=== PATIENT | male | born 1950 | race Caucasian/White ===

== ENCOUNTER 2022-06-05 11:53 | Emergency (ER) | payer MEDICARE, OTHER, SELFPAY ==
[2022-06-05 11:54] VITALS: BP 148/79; PULSE 114; RESP 18; TEMP 36.1; O2SAT 97; BMI 37.3
--- NOTE | 2022-06-05 12:22 | CT_ITS ---
STUDY: CT ABDOMEN AND PELVIS WITHOUT CONTRAST REASON FOR EXAM: Male, 71 years old. Right Flank Pain, History of Retroperitoneal Bleed one week ago RADIATION DOSAGE (If Supplied By Facility): CTDIvol = ( 19.89 ) mGy, DLP = ( 1137.82 ) mGycm TECHNIQUE: Transaxial images were obtained from the dome of the diaphragm to the symphysis pubis without oral contrast, and without intravenous contrast. Sagittal and coronal images were reconstructed. Individualized dose optimization techniques were used for this CT. COMPARISON: 05/24/2022 FINDINGS: There are bilateral calcified granulomas throughout the visualized lung bases. There is right lower lobe consolidation. There are coronary artery calcifications. There is a pacer device in place. The lack of intravenous contrast limits evaluation of solid visceral organs. Normal liver. There is non-visualization of the gallbladder, which may be secondary to either contraction or a prior cholecystectomy. Normal spleen. Normal pancreas. There is a stable circumscribed, smooth, low attenuation right adrenal mass, consistent with an adrenal adenoma. Normal left adrenal gland. There is a grossly stable partially high in attenuation right subcapsular fluid collection consistent with a hematoma. There is mass effect on the right kidney. There is a complex 2.5 x 2.5 x 2.5 cm partially calcified rounded focus arising from the upper pole of the right kidney. There is a grossly stable in size high in attenuation retroperitoneal fluid collection. There are stable low attenuation foci arising from the left kidney consistent with underlying cysts. Normal visualized stomach. Normal small intestine. There are multiple colonic diverticula consistent with diverticulosis. The appendix is visualized and appears normal. There is diffuse atherosclerotic calcification of the abdominal aorta, without a demonstrated aneurysm. There is an IVC filter in place. There is stable mass effect on the inferior vena cava secondary to the retroperitoneal fluid collection. There is evidence of prior intervention within the right retroperitoneum. Normal urinary bladder. Normal abdominal wall. Normal osseous structures. CT/Abdomen/Pelvis without Cont IMPRESSION: Grossly stable right subcapsular renal hematoma associated with a stable retroperitoneal hemorrhage; cannot exclude an underlying slow bleed. 2.5 x 2.5 x 2.5 cm indeterminate lesion arising from the right kidney, cannot exclude a neoplastic process. Atherosclerosis. Colonic diverticulosis. N.B. : The above Results were Read Back by Michelle Beth MD to Dr. Abel Sandy MD, and understanding confirmed on 06/05/2022 14:11:43 (ET). Electronically Signed: Michelle Beth MD at 14:13 EDT ,
--- NOTE | 2022-06-05 12:24 | EDS_ITS ---
HPI History of Present Illness Chief Complaint: General Illness Narrative Narrative: Patient presents with right flank pain, mild generalized weakness after being discharged from [facility] yesterday. He states that he was admitted and spent 10 to 12 days there, even in the ICU for bleeding from his kidney. He states that he thought he had a kidney stone back in December and was diagnosed with possible right-sided kidney cancer. His son-in-law is present and states that he had bleeding from his right kidney that urology tried to ablate, but patient states they had a heck of a time. Since his discharge from the outside facility, he has had generalized weakness, increasing right flank pain. He had started his Coumadin again for atrial fibrillation because he was told that it was okay to restart his anticoagulant from urology's point of view. They called [facility] and he was told to come to the emergency department to see if I am still bleeding.. [facility] Medical History (Updated 06/05/22 @ 16:03 by Abel Sandy MD) A-fib Allergy/AdvReac Type Severity Reaction Status Date / Time No Known Allergies Allergy Verified 06/05/22 11:56 Social History Smoking Status: Never smoker ROS ROS ED ROS Narrative Constitutional: No fever, no chills. Generalized weakness. HEENT: No sore throat. No neck pain. No loss of vision. No rhinorrhea. Cardiovascular: No chest pain. No palpitations. No pedal edema. Respiratory: No cough, no shortness of breath. Abdominal: No abdominal pain. No nausea. No vomiting. Right flank pain. Genitourinary: No dysuria. No hematuria. Musculoskeletal: No myalgias. No arthralgias. Neurologic: No headaches. No dizziness. No lightheadedness. Skin: No rash. No change in color. Psychiatric: No depression. No anxiety. EXAM Physical Exam Narrative Exam Narrative: Afebrile. Vital signs noted. HEENT: Normocephalic. Atraumatic. PERRL, EOMI. Neck soft and supple. No point tenderness or step off. Cardiovascular: Regular rate and rhythm. No murmurs, rubs, or gallops appreciated. Respiratory: No tachypnea. Lungs clear to auscultation bilaterally. Gastrointestinal: Abdomen soft, nontender, with normoactive bowel sounds. No rebound or guarding. Neurological: Awake. Alert. Nonfocal, nonlateralizing. Skin: No rash. Normal color. Mild pallor of palms, no subconjunctival pallor. Musculoskeletal: No pedal edema. Full range of motion extremities. Const Vital Signs: 06/05/22 11:54 06/05/22 14:17 Temperature 97 F L Temperature Source Temporal Pulse Rate 114 H Respiratory Rate 18 Respiratory Effort Normal Non-Labored Respiratory Pattern Normal Blood Pressure 148/79 H Blood Pressure Mean 102 Pulse Ox 97 Oxygen Delivery Method Room Air MDM MDM MDM Narrative Medical decision making narrative: I reviewed the patient's discharge instructions that he had with him. He had history of hemorrhagic shock and retroperitoneal bleeding. They stated that he had tachycardia with activity. Patient denies any bleeding diathesis, no hematuria, no bleeding from his central line placement in his right IJ. Comprehensive work-up was pursued. I will repeat CT scanning without contrast to look for retroperitoneal hemorrhage. CBC shows slightly elevated white count of 11.2 which I think is nonspecific, hemoglobin 9.6. While I am unsure of what his discharge hemoglobin was, I do not feel that he requires emergent transfusion. Platelet count normal at 328. INR subtherapeutic at 1.2 but he started his Coumadin again yesterday. BMP shows elevated creatinine of 2.17 with a BUN of 36, glucose elevated at 136 with a anion gap of 6, normal. Given his low GFR, I was hesitant to use IV contrast for his assessment of his previous retroperitoneal bleed. Urinalysis shows no evidence of infection. I received a call from the radiologist. While there is the subcapsular hematoma and retroperitoneal bleed noted along with his known kidney mass, she states that there is an area of high attenuating fluid which could be consistent with a continued slow bleed. While he is stable hemodynamically, given his recent discharge from the outside facility, I discussed the patient with Dr. Menon at [facility] who is excepted him for admission, and possible consultation with urology again for his retroperitoneal bleed. Disposition is transferred in stable condition. Lab Data Attestation: I reviewed the patient's lab results. Labs: Laboratory Results - last 24 hr 06/05/22 06/05/22 06/05/22 12:45 12:45 12:45 WBC 11.2 H RBC 3.34 L Hgb 9.6 L Hct 30.5 L MCV 91.3 MCH 28.7 MCHC 31.5 L RDW Std Deviation 50.0 H RDW Coeff of Liss 15.1 H Plt Count 328 MPV 9.0 Immature Gran % (Auto) 1.300 H Neut % (Auto) 79.6 H Lymph % (Auto) 8.3 L [place] % (Auto) 8.6 Eos % (Auto) 1.9 Baso % (Auto) 0.3 Absolute Neuts (auto) 9.0 H Absolute Lymphs (auto) 0.93 Nucleated RBC % 0 PT 15.1 H INR 1.2 Sodium 139 Potassium 4.5 Chloride 105 Carbon Dioxide 28.0 Anion Gap 6 BUN 36 H Creatinine 2.17 H Estim Creat Clear Calc 33.17 Est GFR (MDRD) Af Amer 39 L Est GFR (MDRD) Non-Af 32 L BUN/Creatinine Ratio 16.6 Glucose 136 H Calcium 8.8 Urine Color Urine Clarity Urine pH Ur Specific [place] Urine Protein Urine Glucose (UA) Urine Ketones Urine Occult Blood Urine Nitrite Urine Bilirubin Urine Urobilinogen Ur Leukocyte Esterase Urine RBC Urine WBC Ur Squamous Epith Cells Urine Bacteria Urine Mucus 06/05/22 13:35 WBC RBC Hgb Hct MCV MCH MCHC RDW Std Deviation RDW Coeff of Liss Plt Count MPV Immature Gran % (Auto) Neut % (Auto) Lymph % (Auto) [place] % (Auto) Eos % (Auto) Baso % (Auto) Absolute Neuts (auto) Absolute Lymphs (auto) Nucleated RBC % PT INR Sodium Potassium Chloride Carbon Dioxide Anion Gap BUN Creatinine Estim Creat Clear Calc Est GFR (MDRD) Af Amer Est GFR (MDRD) Non-Af BUN/Creatinine Ratio Glucose Calcium Urine Color Yellow Urine Clarity Clear Urine pH 8.0 Ur Specific [place] 1.015 Urine Protein 30 H Urine Glucose (UA) Normal Urine Ketones Negative Urine Occult Blood 150 H Urine Nitrite Negative Urine Bilirubin Negative Urine Urobilinogen 1 H Ur Leukocyte Esterase Negative Urine RBC 0 SEEN Urine WBC 0 SEEN Ur Squamous Epith Cells 0 SEEN Urine Bacteria 0 SEEN Urine Mucus 0 SEEN Radiography Diagnostic Testing: Clinical Impression(s) from Imaging Studies Abdomen/Pelvis CT 06/05/22 12:22 IMPRESSION: Grossly stable right subcapsular renal hematoma associated with a stable retroperitoneal hemorrhage; cannot exclude an underlying slow bleed. 2.5 x 2.5 x 2.5 cm indeterminate lesion arising from the right kidney, cannot exclude a neoplastic process. Atherosclerosis. Colonic diverticulosis. N.B. : The above Results were Read Back by Michelle Beth MD to Dr. Abel Sandy MD, and understanding confirmed on 06/05/2022 14:11:43 (ET). Electronically Signed: Michelle Beth MD at 14:13 EDT , ADDENDUM: 06/05/22 1420 IMPRESSION: Grossly stable right subcapsular renal hematoma associated with a stable retroperitoneal hemorrhage; cannot exclude an underlying slow bleed. 2.5 x 2.5 x 2.5 cm indeterminate lesion arising from the right kidney, cannot exclude a neoplastic process. Atherosclerosis. Colonic diverticulosis. N.B. : The above Results were Read Back by Michelle Beth MD to Dr. Abel Sandy MD, and understanding confirmed on 06/05/2022 14:11:43 (ET). Electronically Signed: Michelle Beth MD at 14:13 EDT , Discharge Plan Triage Chief Complaint: General Illness ED Provider: Abel Sandy Dx/Rx/DC Orders Clinical Impression: Anemia, Retroperitoneal bleed, Hematoma of right kidney, Right renal mass Primary Care Provider: Flaquito Fernandes Referrals: NOT,DEFINED [Non-Staff] - Disposition Disposition: Acute Care Hospital Discharge Location: [facility]
[2022-06-05 13:12] LABS: Absolute Lymphocyte Count 0.93 X10^3/uL (0.83-4.51); Basophil# 0.03 X10^3/uL; Basophil% 0.3 % (0-1); Eosinophil# 0.21 X10^3/uL; Eosinophils% 1.9 % (0-5); Hematocrit 30.5 % (40-54); Hemoglobin 9.6 g/dL (13.0-16.5); Lymphocyte # 0.93 X10^3/ul (0.83-4.51); Lymphocyte % 8.3 % (19-41); Mean Corp Hgb Conc 31.5 g/dL (32-36); Mean Corpuscular Hgb 28.7 pg (27.0-32.0); Mean Corpuscular Volume 91.3 fL (80-94); Monocyte# 0.97 X10^3/uL; Monocyte% 8.6 % (0-10); NRBC Flagged by Analyzer 0 % (0-5); Neutrophil # 8.95 X10^3/uL (2.7-7.7); Neutrophil % 79.6 % (47-70); Platelet Count 328 K/mm3 (150-450); RBC Distribution Width CV 15.1 % (11.6-14.6); Red Blood Count 3.34 M/mm3 (4.6-6.2); White Blood Count 11.2 K/mm3 (4.4-11.0)
[2022-06-05 13:24] LABS: International Normalized Ratio 1.2; Prothrombin Time (Protime)PT. 15.1 SECONDS (11.7-14.9)
[2022-06-05 13:25] LABS: Anion Gap 6 (5-15); BUN 36 mg/dL (7-18); BUN/Creat Ratio 16.6 RATIO (10-20); Calcium,Total 8.8 mg/dL (8.5-10.1); Chloride 105 mmol/L (98-107); Creatinine, Serum 2.17 mg/dL (0.70-1.30); EST Glomerular Filtration Rate 32 mL/min (>60); Est Glom Filt Rate - Afr Amer 39 mL/min (>60); Estimated Creatinine Clearance 33.17 ml/min; Glucose 136 mg/dL (74-106); Potassium 4.5 mmol/L (3.5-5.1); Sodium Level 139 mmol/L (136-145)
[2022-06-05 13:43] LABS: Color, Urine Yellow (Yellow); Glucose, Dipstick Normal (Normal); Ketone-Dipstick Negative (Negative); Leukocyte Esterase-Dipstick Negative /ul (Negative); Nitrite-Dipstick Negative (Negative); Occult Blood-Urine 150 /ul (Negative); Protein-Dipstick 30 mg/dl (Negative); Specific Gravity, Urine 1.015 (1.002-1.030); Urine Bilirubin Dipstick Negative (Negative); Urine Clarity Clear (Clear); Urine Urobilinogen 1 mg/dl (Normal)
[2022-06-05 13:44] LABS: Bacteria 0 SEEN /hpf (None Seen); Mucous, Urine 0 SEEN /hpf (<or=2+); Red Blood Cells-Urine 0 SEEN /hpf (0-5); Squamous Epithelial Cells - UA 0 SEEN /hpf (0-5); White Blood Cells 0 SEEN /hpf (0-5)
[2022-06-05 16:36] VITALS: BP 127/59; PULSE 94; RESP 18; TEMP 36.9; O2SAT 98
[2022-06-05 18:12] VITALS: BP 177/90; PULSE 109; RESP 16; O2SAT 98
[2022-06-05 18:13] VITALS: BP 177/90; PULSE 109; RESP 16; TEMP 36.7; O2SAT 98
--- NOTE | 2022-06-05 18:24 | ED.RN ---
THIS RN CALLED REPORT TO [facility] AT 1828. REPORT GIVEN TO JOANN SANCHES ON [id number].
[2022-06-05 18:57] VITALS: BP 177/90; PULSE 109; RESP 16; O2SAT 98
== END 2022-06-05 18:59 | disposition short-term general hospital (02) ==
PROVIDERS: Emergency Provider Emergency Medicine; PCP Student in an Organized Health Care Education/Training Program; Visit Provider Emergency Medicine
DX: N28.89 Other specified disorders of kidney and ureter (principal); I48.91 Unspecified atrial fibrillation; D64.9 Anemia, unspecified; Z87.442 Personal history of urinary calculi; K66.1 Hemoperitoneum
CPT/HCPCS: 74176; 80048; 81001; 85025; 85610; 87811; 99285; A4216

== ENCOUNTER 2023-08-18 21:37 | Emergency (ER) | payer MEDICARE, OTHER, SELFPAY ==
[2023-08-18 21:39] VITALS: BP 149/90; PULSE 98; RESP 18; TEMP 36.8; O2SAT 97; BMI 38.0
--- NOTE | 2023-08-18 22:14 | US_ITS ---
ACR Level 3 findings have been noted. An addendum which confirms receipt of the report will follow. EXAM: US DUPLEX LEFT LOWER EXTREMITY VEINS CLINICAL INDICATION: LT LEG SWELLING/ PAIN TECHNIQUE: Real-time duplex ultrasound scan of the left lower extremity veins integrating B-mode two-dimensional vascular structure, Doppler spectral analysis, color flow Doppler imaging and compression. COMPARISON: No relevant prior studies available. FINDINGS: Thrombus is identified at the greater saphenous vein at the common femoral/greater saphenous junction extending all the way down to the mid calf level. No other venous anastomosis. No mass or adenopathy. US/Venous Duplex Imag/Limited/Uni IMPRESSION: Thrombus is identified at the greater saphenous vein at the common femoral/greater saphenous junction extending all the way down to the mid calf level. No other venous thromboses. Electronically Signed: Bravo Duran MD at 23:34 EST ,
--- NOTE | 2023-08-18 22:38 | ED.VIS.LOWEX ---
HPI History of Present Illness HPI Narrative: Patient presents with pain and swelling to his left lower extremity has been getting worse since yesterday. Patient states that he was wearing his jeans tonight and noticed that his left leg felt tight in the jeans. 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 Patient states that his primary care physician has been having difficulty adjusting his INR. Patient states his INR yesterday was 1.4. Patient states currently he is on 4 mg of Coumadin per day. Patient states his pain got worse when he laid down tonight. Patient describes the pain as like needles and sharp. Patient denies any fevers or chills. Patient denies any chest pain or shortness of breath. Chief Complaint: Lower Extremity Injury Informant: patient Onset/Context/Timing Onset: Yesterday Context: Gradual Onset Timing: Continuous Quality of Pain: Sharp (Like needles) Location: Left lower extremity Worsened by: Laying down Relieved by: Nothing Associated Symptoms Associated Symptoms: Negative for Parasthesia, Weakness or Loss of Funtion PFSH PFSH Medical History (Updated 08/19/23 @ 00:[address] Lazaro Ramirez DO) A-fib Blood clot in leg Cancer of right kidney Coronary stent patent Pacemaker Pulmonary embolism Allergy/AdvReac Type Severity Reaction Status Date / Time No Known Allergies Allergy Verified 08/18/23 21:42 Surgical History (Updated 08/18/23 @ 22:[address] Lazaro Ramirez DO) History of right nephrectomy Hx of cholecystectomy Hx of tonsillectomy S/P insertion of IVC (inferior vena caval) filter Social History Smoking Status: Never smoker ROS ROS ED Constitutional Constitutional ED: Denies chills or fever(s) Eyes Eyes: Denies blurry vision or change in vision ENT ENT ED: Denies rhinorrhea or sore throat Cardiovascular Cardiovascular: Denies chest pain or palpitations Respiratory/Chest Respiratory/Chest: Denies cough or dyspnea Gastrointestinal Gastrointestinal: Denies nausea or vomiting Genitourinary Genitourinary ED: Denies dysuria or hematuria Musculoskeletal Musculoskeletal: Reports back pain; Denies neck pain Integumentary Denies abscess or rash Neurologic Neurologic: Denies headache(s) or weakness Allergic/Immunologic Allergic/Immunologic ED: Denies mouth swelling or urticaria EXAM Physical Exam Const Vital Signs: 08/18/23 21:39 Temperature 98.3 F Temperature Source Temporal Pulse Rate 98 Respiratory Rate 18 Blood Pressure 149/90 H Blood Pressure Mean 109 Pulse Ox 97 Oxygen Delivery Method Room Air Positive well nourished, well developed and obese General Appearance ED: well developed and NAD Nutritional Appearance: obese HEENT Reports moist mucous membranes Neck full ROM and supple Resp normal respiratory effort Cardio regular rate and regular rhythm GI non-tender and non-distended Palpation: soft Extremity Extremity Narrative: There is edema and tenderness of the left thigh and lower leg. There is some mild erythema and warmth. Range of motion was limited in all motions of the left lower extremity secondary to pain. Pedal pulses are equal bilaterally. Sensation was intact to light touch bilaterally in the lower extremities. Strength is 5/5 bilaterally in the lower extremities. Neuro oriented x3, CN's II-XII intact bilaterally, moves all extremities and no sensory deficits noted Sensorium / Orientation: alert Motor Exam: strength 5/5 throughout Psych mental status grossly normal MDM MDM MDM Narrative Medical decision making narrative: Differential diagnosis includes DVT, cellulitis, electrolyte abnormality, coagulopathy, and muscle strain. Venous duplex of the left lower extremity will be obtained to assess for DVT. PT with INR will be obtained to assess for coagulopathy. CBC will be obtained to assess for leukocytosis and anemia. Basic metabolic profile will be obtained to assess for electrolyte abnormality and renal function. Lab Data Attestation: I reviewed the patient's lab results. Lab results narrative: CBC was reviewed and was within normal limits. Basic metabolic profile was reviewed. BUN was 40 and creatinine was 1.92. These are consistent with prior results. PT with INR was reviewed. Pro time was 21.4 and INR is 1.8. Labs: Laboratory Results - last 24 hr 08/18/23 23:08 WBC 10.4 RBC 4.39 L Hgb 13.1 Hct 40.0 MCV 91.1 MCH 29.8 MCHC 32.8 RDW Std Deviation 47.8 H RDW Coeff of Liss 14.4 Plt Count 162 MPV 9.7 Immature Gran % (Auto) 0.600 Neut % (Auto) 67.5 Lymph % (Auto) 18.7 L [place] % (Auto) 10.9 H Eos % (Auto) 1.8 Baso % (Auto) 0.5 Absolute Neuts (auto) 7.1 Absolute Lymphs (auto) 1.95 Nucleated RBC % 0 PT 21.4 H INR 1.8 Sodium 139 Potassium 4.1 Chloride 106 Carbon Dioxide 26.0 Anion Gap 7 BUN 40 H Creatinine 1.92 H Estim Creat Clear Calc 36.44 Est GFR (MDRD) Af Amer 45 L Est GFR (MDRD) Non-Af 37 L BUN/Creatinine Ratio 20.8 H Glucose 134 H Calcium 8.9 Radiography Diagnostic Testing: Clinical Impression(s) from Imaging Studies Venous Duplex 08/18/23 22:14 IMPRESSION: Thrombus is identified at the greater saphenous vein at the common femoral/greater saphenous junction extending all the way down to the mid calf level. No other venous thromboses. Electronically Signed: Bravo Duran MD at 23:34 EST , ADDENDUM: 08/18/23 3548 IMPRESSION: Thrombus is identified at the greater saphenous vein at the common femoral/greater saphenous junction extending all the way down to the mid calf level. No other venous thromboses. N.B. : ERIK SOL RN, confirmed on 08/18/2023 23:41:20 (ET) that the healthcare facility has received the radiology report. Electronically Signed: Bravo Duran MD at 23:34 EST , Venous duplex of the left lower extremity was obtained. There is thrombus at the junction of the common femoral and greater saphenous veins all the way down to the mid calf level in the greater saphenous vein. This was interpreted by the radiologist and was also independently reviewed by myself. Treatment and Re-Evaluation Narrative: Findings were discussed with the patient. Patient states that he took 6 mg of Coumadin yesterday and 4 mg of Coumadin today. Patient states he is scheduled to see his primary care physician tomorrow morning at 9 AM. Patient also states he has 2 doses of Lovenox at home that were leftover from when he had the IVC filter removed. Case was discussed with on-call physician covering for Dr. Fernandes. She agrees with giving the patient a dose of Lovenox here and following up tomorrow morning as scheduled. Patient was given a dose of Lovenox. Patient was instructed to follow-up tomorrow as scheduled. Patient understood and was agreeable with the plan. All questions were answered. Discharge Plan Triage Chief Complaint: Lower Extremity Injury ED Provider: Lazaro Ramirez Dx/Rx/DC Orders Clinical Impression: Pain of left lower extremity, Superficial thrombophlebitis of left leg Instructions: ED Thrombophlebitis, Superficial Primary Care Provider: Flaquito Fernandes Referrals: Flaquito Fernandes DO [Primary Care Provider] - Keep Chary appointment Disposition Disposition: Home, Self Care
[2023-08-18 23:15] LABS: Absolute Lymphocyte Count 1.95 X10^3/uL (0.83-4.51); Absolute Neutrophil Count 7.1 X10^3/uL (2.0-7.7); Basophil# 0.05 X10^3/uL; Basophil% 0.5 % (0-1); Eosinophil# 0.19 X10^3/uL; Eosinophils% 1.8 % (0-5); Hemoglobin 13.1 g/dL (13.0-16.5); Lymphocyte # 1.95 X10^3/ul (0.83-4.51); Lymphocyte % 18.7 % (19-41); Mean Corp Hgb Conc 32.8 g/dL (32-36); Mean Corpuscular Hgb 29.8 pg (27.0-32.0); Mean Corpuscular Volume 91.1 fL (80-94); Mean Platelet Vol. 9.7 fl (6.2-12.0); Monocyte# 1.14 X10^3/uL; Monocyte% 10.9 % (0-10); NRBC Flagged by Analyzer 0 % (0-5); Neutrophil # 7.05 X10^3/uL (2.7-7.7); Neutrophil % 67.5 % (47-70); Platelet Count 162 K/mm3 (150-450); RBC Distribution Width CV 14.4 % (11.6-14.6); RBC Distribution Width SD 47.8 fl (35.1-43.9); Red Blood Count 4.39 M/mm3 (4.6-6.2); White Blood Count 10.4 K/mm3 (4.4-11.0)
[2023-08-18 23:30] LABS: Anion Gap 7 (5-15); BUN 40 mg/dL (7-18); BUN/Creat Ratio 20.8 RATIO (10-20); Calcium,Total 8.9 mg/dL (8.5-10.1); Chloride 106 mmol/L (98-107); Creatinine, Serum 1.92 mg/dL (0.70-1.30); EST Glomerular Filtration Rate 37 mL/min (>60); Est Glom Filt Rate - Afr Amer 45 mL/min (>60); Estimated Creatinine Clearance 36.44 ml/min; Glucose 134 mg/dL (74-106); Potassium 4.1 mmol/L (3.5-5.1); Sodium Level 139 mmol/L (136-145)
[2023-08-18 23:38] LABS: International Normalized Ratio 1.8; Prothrombin Time (Protime)PT. 21.4 SECONDS (11.7-14.9)
[2023-08-19 00:31] VITALS: PULSE 63; RESP 18; O2SAT 97
[2023-08-19] MEDS: Enoxaparin 120 MG/0.8 ML Syringe SC (00:40)
== END 2023-08-19 00:49 | disposition home or self-care (01) ==
PROVIDERS: Emergency Provider Emergency Medicine; PCP Student in an Organized Health Care Education/Training Program; Visit Provider Emergency Medicine
DX: I80.02 Phlebitis and thrombophlebitis of superficial vessels of left lower extremity (principal); I48.91 Unspecified atrial fibrillation; E66.9 Obesity, unspecified; M54.9 Dorsalgia, unspecified; Z95.0 Presence of cardiac pacemaker; Z95.5 Presence of coronary angioplasty implant and graft; Z86.711 Personal history of pulmonary embolism; Z79.01 Long term (current) use of 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
CPT/HCPCS: 80048; 85025; 85610; 93971; 96372; 99283

== ENCOUNTER 2024-12-29 16:09 | Inpatient (IN) | payer MEDICARE, OTHER, SELFPAY ==
[2024-12-29] VITALS (8 sets, daily range): BP systolic 126–150; BP diastolic 93–115; PULSE 64–114; RESP 15–21; TEMP 35.7–36.9; O2SAT 94–98; BMI 36.7; BMI 37.0
--- NOTE | 2024-12-29 16:17 | ED.VIS.CHEST ---
HPI History of Present Illness Chief Complaint: Chest Pain Informant: patient Onset/Context/Timing Onset: Yesterday Activity at onset: gradual Timing: Continuous Quality: Positive for Pressure and Tightness Location: Substernal, Right Parasternal, Left Parasternal, Right Chest and Left Chest Worsened By: Exertion Relieved By: Nothing Associated Symptoms: Positive for Diaphoresis, Dyspnea, Cough and Lightheadedness; Negative for Nausea, Vomiting, Fever, Acid Reflux or Palpitations Narrative Narrative: Patient presents with chest pain and shortness of breath that began yesterday. Patient states that has been constant since yesterday. Patient states that it came on gradually. Patient states it is diffuse across the chest. Patient states it is worse with any exertion. Patient states nothing seems to help with it. Patient admits to a cough and shortness of breath. Patient also admits to some diaphoresis last night. Patient states he feels lightheaded. Patient denies any fevers or chills. Patient denies any nausea or vomiting. Patient states his pain feels somewhat similar to prior pulmonary embolus. CVD Risk Factors: Positive for Hypertension; Negative for Diabetes, Hypercholesterolemia, Family History 1' </=55 or Smoking PE Risk Factors: Positive for Prior DVT or PE and Cancer; Negative for Recent Travel/Surgery, Recent Immobilization or OCP + Smoking + >/=35 [facility] Medical History Pulmonary embolism Blood clot in leg Coronary stent patent Pacemaker Cancer of right kidney A-fib Home Medications ?Medication ?Instructions ?Recorded ?Last Taken ?Type apixaban 5 mg tablet (Eliquis) 5 mg PO BID 12/29/24 12/29/24 History aspirin 81 mg tablet,delayed 81 mg PO QHS 12/29/24 12/28/24 History release (Adult Aspirin Regimen) atorvastatin 40 mg tablet 40 mg PO QHS 12/29/24 12/28/24 History bupropion HCl 150 mg 24 hr tablet, 300 mg PO QHS 12/29/24 12/28/24 History extended release calcium carbonate 600 mg PO BID 12/29/24 12/29/24 History cholecalciferol (vitamin D3) 50 50 mcg PO BID 12/29/24 12/29/24 History mcg (2,000 unit) tablet (D3 DOTS) diltiazem HCl 180 mg 180 mg PO DAILY 12/29/24 Unknown History capsule,extended release 24 hr Held on 12/29/24. Instructions: MD Ordered escitalopram oxalate 20 mg tablet 20 mg PO QHS 12/29/24 12/28/24 History finasteride 5 mg tablet 5 mg PO DAILY 12/29/24 12/29/24 History furosemide 20 mg tablet 20 mg PO DAILY 12/29/24 12/29/24 History metoprolol succinate 25 mg 25 mg PO BID 12/29/24 12/29/24 History tablet,extended release 24 hr olopatadine 0.1 % eye drops (Eye 1 drp EACH EYE DAILY 12/29/24 Unknown History Allergy Itch-Redness Relief) sildenafil (pulm.hypertension) 20 40 mg PO DAILY 12/29/24 Unknown History mg tablet Held on 12/29/24. Instructions: MD Ordered Allergy/AdvReac Type Severity Reaction Status Date / Time No Known Allergies Allergy Verified 12/29/24 16:10 Surgical History S/P insertion of IVC (inferior vena caval) filter History of right nephrectomy Hx of tonsillectomy Hx of cholecystectomy Social History Smoking Status: Never smoker ROS ROS ED Constitutional Constitutional ED: Denies chills or fever(s) Eyes Eyes: Denies blurry vision or change in vision ENT ENT ED: Denies rhinorrhea or sore throat Cardiovascular Cardiovascular: Reports as per HPI and chest pain; Denies palpitations Respiratory/Chest Respiratory/Chest: Reports cough and dyspnea Gastrointestinal Gastrointestinal: Denies nausea or vomiting Genitourinary Genitourinary ED: Denies dysuria or hematuria Musculoskeletal Musculoskeletal: Reports back pain; Denies neck pain Integumentary Denies abscess or rash Neurologic Neurologic: Reports weakness; Denies headache(s) Allergic/Immunologic Allergic/Immunologic ED: Denies mouth swelling or urticaria EXAM Physical Exam Const Vital Signs: 12/29/24 16:10 12/29/24 16:24 12/29/24 16:40 Temperature 96.2 F L Temperature Source Temporal Pulse Rate 64 Respiratory Rate 18 Respiratory Effort Short of Breath Blood Pressure 150/115 H Blood Pressure Mean 126 Pulse Ox 94 96 Oxygen Delivery Method Room Air Room Air 12/29/24 17:06 12/29/24 18:00 Temperature Temperature Source Pulse Rate 114 H Respiratory Rate 21 H Respiratory Effort Blood Pressure 142/96 H 143/93 H Blood Pressure Mean 111 109 Pulse Ox 95 Oxygen Delivery Method Room Air Positive well nourished and well developed General Appearance ED: well developed and NAD HEENT Reports moist mucous membranes normocephalic and atraumatic Neck supple and no JVD Resp normal respiratory effort and clear to auscultation bilaterally Cardio Rate: tachycardic Rhythm: abnormal rhythm irregularly irregular GI soft to palpation, non-tender and non-distended Extremity normal to inspection General Extremety ED: Negative for tenderness Neuro oriented x3, CN's II-XII intact bilaterally and no sensory deficits noted Sensorium / Orientation: awake and alert Motor Exam: strength 5/5 throughout Psych mental status grossly normal MDM MDM MDM Narrative Medical decision making narrative: Differential diagnosis includes cardiac dysrhythmia, cardiac ischemia, pneumonia, pulmonary embolism, bronchitis, electrolyte abnormality, coagulopathy, and anxiety. EKG will be obtained to assess for cardiac dysrhythmia and cardiac ischemia. Chest x-ray will be obtained to assess for pneumonia or bronchitis. CBC will be obtained to assess for leukocytosis and anemia. Basic metabolic profile will be obtained to assess for electrolyte abnormality and renal function. D-dimer will be obtained to assess for pulmonary embolism. High-sensitivity troponin series will be obtained to assess for cardiac ischemia. PT with INR and PTT will be obtained to assess for coagulopathy. Lab Data Attestation: I reviewed the patient's lab results. Lab results narrative: CBC was reviewed. There is a mild leukocytosis of 11.4. The remainder is within normal limits. Basic metabolic profile was reviewed. BUN was slightly elevated at 39 and creatinine was 2.01. These are consistent with previous results. PT with INR and PTT were reviewed. Pro time was 15.5 and INR is 1.2. PTT was normal at 29.9. D-dimer was reviewed and was less than 0.27. Initial high-sensitivity troponin was reviewed and was elevated at 64. Labs: Laboratory Results - last 24 hr 12/29/24 16:29 WBC 11.4 H RBC 4.90 Hgb 14.8 Hct 44.2 MCV 90.2 MCH 30.2 MCHC 33.5 RDW Std Deviation 45.9 H RDW Coeff of Liss 14.0 Plt Count 181 MPV 9.7 Immature Gran % (Auto) 0.400 Neut % (Auto) 76.3 H Lymph % (Auto) 11.4 L [place] % (Auto) 10.7 H Eos % (Auto) 0.9 Baso % (Auto) 0.3 Absolute Neuts (auto) 8.7 H Absolute Lymphs (auto) 1.29 Nucleated RBC % 0 PT 15.5 H INR 1.2 APTT 29.9 D-Dimer Quant (PE/DVT) < 0.27 L Sodium 136 Potassium 4.5 Chloride 104 Carbon Dioxide 21.3 Anion Gap 11 BUN 39 H Creatinine 2.01 H Estim Creat Clear Calc 42.41 L Est GFR (MDRD) Non-Af 35 L BUN/Creatinine Ratio 19.3 Glucose 160 H Calcium 9.0 Troponin T High Sens 64 H* Radiography Chest X-Ray - ED: 1 View, Read by ED Physician, Read by Radiologist and No Acute Disease Diagnostic Testing: Clinical Impression(s) from Imaging Studies Chest X-Ray 12/29/24 17:00 IMPRESSION: Mild bibasilar atelectasis. Otherwise, no acute findings. Reading Location: [facility] Portable 1 view chest x-ray was obtained. On my independent interpretation, lung macario showed mild bibasilar atelectasis. There is normal cardiac silhouette. Bony thorax is normal. There is no acute process noted. Radiologist also interpreted the x-ray and agrees. EKG Initial EKG: Attestation: I personally reviewed and interpreted this EKG as follows: Interpretation: Atrial Fibrillation (116) and LBBB Comments: EKG was obtained. On my independent interpretation it shows atrial fibrillation with a rate of 116. QRS interval was slightly prolonged at 150 ms. QTc interval was 508 ms. [place] was normal. There is a left bundle branch block pattern noted. There are nonspecific ST-T wave changes noted. There are no prior EKGs available for comparison. Prior EKG tracings: not available for review Prior: No Prior Management Discussion w/another healthcare provider: Hospitalist Treatment and Re-Evaluation :: Patient was given aspirin here. Patient is advised of his findings. Patient was advised of the need for hospitalization. Patient is agreeable with this. Case was discussed with the hospitalist. He will admit the patient to his service. Patient and family understood and were agreeable with the plan. All questions were answered. Discharge Plan Triage Chief Complaint: Chest Pain ED Provider: Lazaro Ramirez Dx/Rx/DC Orders Clinical Impression: Chest pain, Elevated troponin, Hypertension, Atrial fibrillation Prescriptions: No Action atorvastatin 40 mg tablet 40 mg PO QHS Eliquis 5 mg tablet 5 mg PO BID metoprolol succinate 25 mg tablet extended release 24 hr 25 mg PO BID escitalopram oxalate 20 mg tablet 20 mg PO QHS calcium carbonate 600 mg calcium (1,500 mg) tablet 600 mg PO BID aspirin [Adult Aspirin Regimen] 81 mg tablet,delayed release (DR/EC) 81 mg PO QHS furosemide 20 mg tablet 20 mg PO DAILY finasteride 5 mg tablet 5 mg PO DAILY bupropion HCl 150 mg tablet extended release 24 hr 300 mg PO QHS diltiazem HCl 180 mg capsule,extended release 24hr 180 mg PO DAILY cholecalciferol (vitamin D3) [D3 DOTS] 50 mcg (2,000 unit) tablet 50 mcg PO BID sildenafil (pulm.hypertension) 20 mg tablet 40 mg PO DAILY olopatadine [Eye Allergy Itch-Redness Rlf] 0.1 % drops 1 drp EACH EYE DAILY Patient Comments: PT DOES IF HE REMEMBERS Primary Care Provider: Flaquito Fernandes Referrals: Flaquito Fernandes DO [Primary Care Provider] - Print Language: Frisian Disposition Disposition: Acute Care Hospital [facility]
--- NOTE | 2024-12-29 16:40 | EKG12_ITS ---
Test Reason : CP Blood Pressure : */* mmHG Vent. Rate : 116 BPM Atrial Rate : * BPM P-R Int : * ms QRS Dur : 150 ms QT Int : 366 ms P-R-T Axes : * 10 112 degrees QTcB Int : 508 ms Atrial fibrillation /flutter with RVR Left bundle branch block Abnormal ECG Confirmed by Flaquito Read ([id number]), state editor DOUG PACK ([id number]) on 01/04/2025 12:59:58 PM Referred By: Confirmed By: Flaquito Read
[2024-12-29 16:47] LABS: Absolute Lymphocyte Count 1.29 X10^3/uL (0.83-4.51); Absolute Neutrophil Count 8.7 X10^3/uL (2.0-7.7); Basophil# 0.03 X10^3/uL; Basophil% 0.3 % (0-1); Eosinophils% 0.9 % (0-5); Hematocrit 44.2 % (40-54); Hemoglobin 14.8 g/dL (13.0-16.5); Lymphocyte # 1.29 X10^3/ul (0.83-4.51); Lymphocyte % 11.4 % (19-41); Mean Corp Hgb Conc 33.5 g/dL (32-36); Mean Corpuscular Hgb 30.2 pg (27.0-32.0); Mean Corpuscular Volume 90.2 fL (80-94); Mean Platelet Vol. 9.7 fl (6.2-12.0); Monocyte# 1.22 X10^3/uL; Monocyte% 10.7 % (0-10); NRBC Flagged by Analyzer 0 % (0-5); Neutrophil # 8.67 X10^3/uL (2.7-7.7); Neutrophil % 76.3 % (47-70); Platelet Count 181 K/mm3 (150-450); RBC Distribution Width SD 45.9 fl (35.1-43.9); White Blood Count 11.4 K/mm3 (4.4-11.0)
--- NOTE | 2024-12-29 17:00 | RAD_ITS ---
PROCEDURE: CHEST 1 VIEW (PORTABLE) 12/29/2024 REASON FOR EXAM: CHEST PAIN TECHNIQUE: Frontal view of the chest. COMPARISON: None FINDINGS: Hardware: Left-sided ICD. Heart: Heart size is mildly enlarged. Lungs: Mild bibasilar atelectasis. No pneumothorax. No large pleural effusion. No focal consolidation. Bones: The bones are unremarkable. Other: RAD/Chest 1 View (Portable) IMPRESSION: Mild bibasilar atelectasis. Otherwise, no acute findings. Reading [facility]
[2024-12-29 17:09] LABS: International Normalized Ratio 1.2; Prothrombin Time (Protime)PT. 15.5 SECONDS (11.7-14.9)
[2024-12-29 17:10] LABS: Partial Thromboplast Time 29.9 Seconds (24.1-36.2)
[2024-12-29] MEDS: Aspirin 81 MG TAB.CHEW 324 MG PO (17:23)
[2024-12-29 17:24] LABS: Anion Gap 11 (5-15); BUN 39 mg/dL (4-19); BUN/Creat Ratio 19.3 RATIO (10-20); Carbon Dioxide 21.3 mmol/L (21.0-32.0); Chloride 104 mmol/L (98-108); Creatinine, Serum 2.01 mg/dL (0.70-1.20); EST Glomerular Filtration Rate 35 (>60); Estimated Creatinine Clearance 42.41 ml/min (50-250); Glucose 160 mg/dL (70-99); Potassium 4.5 mmol/L (3.3-5.1); Sodium Level 136 mmol/L (133-145)
[2024-12-29 17:29] LABS: Troponin T High Sensitivity 64 ng/L (<=22)
--- NOTE | 2024-12-29 17:30 | ED.RN ---
Critical Troponin of [address] Ramirez notified.
[2024-12-29 17:39] LABS: D-Dimer Quantitative (DVT/PE) < 0.27 FEU/ug/m (0.27-0.49)
--- NOTE | 2024-12-29 18:48 | PCM.HP.STD ---
[facility] - General General Date of Admission: 12/29/24 HPI Urbano HAGAN, is a 74 M who presents to the hospital with lightheadedness dizziness as well as chest pain. He is in A-fib and states that he is always in A-fib with variable heart rate. He has been having lightheadedness and dizziness for the last couple of months and his primary care doctor has been trying to make some changes to his medications including discontinuing his sildenafil for his history of PE, he recently put his Cardizem on hold. He is currently on metoprolol 25 mg p.o. twice daily. He does have baseline renal dysfunction as he has had a nephrectomy for cancer. He does appear to be highly anxious and he is extremely nervous about having another PE, his last PEs occurred while on Coumadin but now he is on Eliquis properly dosed at 5 mg p.o. twice daily and he does not miss a dose. [facility] Medical History Pulmonary embolism Blood clot in leg Coronary stent patent Pacemaker Cancer of right kidney A-fib Home Medications ?Medication ?Instructions ?Recorded ?Last Taken ?Type apixaban 5 mg tablet (Eliquis) 5 mg PO BID 12/29/24 12/29/24 History aspirin 81 mg tablet,delayed 81 mg PO QHS 12/29/24 12/28/24 History release (Adult Aspirin Regimen) atorvastatin 40 mg tablet 40 mg PO QHS 12/29/24 12/28/24 History bupropion HCl 150 mg 24 hr tablet, 300 mg PO QHS 12/29/24 12/28/24 History extended release calcium carbonate 600 mg PO BID 12/29/24 12/29/24 History cholecalciferol (vitamin D3) 50 50 mcg PO BID 12/29/24 12/29/24 History mcg (2,000 unit) tablet (D3 DOTS) diltiazem HCl 180 mg 180 mg PO DAILY 12/29/24 Unknown History capsule,extended release 24 hr Held on 12/29/24. Instructions: Ordered escitalopram oxalate 20 mg tablet 20 mg PO QHS 12/29/24 12/28/24 History finasteride 5 mg tablet 5 mg PO DAILY 12/29/24 12/29/24 History furosemide 20 mg tablet 20 mg PO DAILY 12/29/24 12/29/24 History metoprolol succinate 25 mg 25 mg PO BID 12/29/24 12/29/24 History tablet,extended release 24 hr olopatadine 0.1 % eye drops (Eye 1 drp EACH EYE DAILY 12/29/24 Unknown History Allergy Itch-Redness Relief) sildenafil (pulm.hypertension) 20 40 mg PO DAILY 12/29/24 Unknown History mg tablet Held on 12/29/24. Instructions: MD Ordered Allergy/AdvReac Type Severity Reaction Status Date / Time No Known Allergies Allergy Verified 12/29/24 16:10 Family History (Updated 12/29/24 @ 18:[address] Danny Iqbal MD) Other Cancer Diabetes Surgical History S/P insertion of IVC (inferior vena caval) filter History of right nephrectomy Hx of tonsillectomy Hx of cholecystectomy Social History housing: house Smoking Status: Never smoker ROS Constitutional Constitutional: Denies chills, fatigue, fever(s) or malaise Eyes Eyes: Denies blurry vision ENT HEENT: Denies headache(s) or nasal discharge Cardiovascular Cardiovascular: Reports chest pain, lightheadedness and palpitations; Denies dyspnea on exertion or syncope Respiratory/Chest Respiratory/Chest: Denies cough, shortness of breath at rest or shortness of breath with exertion Gastrointestinal Gastrointestinal: Denies constipation, diarrhea, nausea or vomiting Genitourinary Genitourinary: Denies dysuria Neurologic Neurologic: Denies focal weakness, numbness or tremor(s) Psychiatric Psychiatric: Reports anxiety; Denies depression Vital Signs Vital Signs Vital Signs: 12/29/24 16:10 12/29/24 16:24 12/29/24 16:40 Temperature 96.2 F L Temperature Source Temporal Pulse Rate 64 Respiratory Rate 18 Respiratory Effort Short of Breath Blood Pressure 150/115 H Blood Pressure Mean 126 Pulse Ox 94 96 Oxygen Delivery Method Room Air Room Air 12/29/24 17:06 12/29/24 18:00 12/29/24 18:33 Temperature 96.2 F L Temperature Source Pulse Rate 114 H 114 H Respiratory Rate 21 H 21 H Respiratory Effort Blood Pressure 142/96 H 143/93 H 143/93 H Blood Pressure Mean 111 109 109 Pulse Ox 95 95 Oxygen Delivery Method Room Air Weight Weight: 256 lb Body Mass Index (BMI) 36.7 Physical Exam Narrative General: Alert, Oriented x3, Cooperative, No apparent distress HEENT: Atraumatic, PERRLA, EOMI, Normocephalic Oral: Moist Mucosa Neck: Supple, No JVD Lungs: Diminished, Normal air movement, No rhonchi, No wheeze, No rales Cardiovascular: Irregular rate and rhythm, Normal S1, Normal S2, No murmurs Abdomen: Soft, Non Tender, Non-Distended, No Hepato-splenomegaly Extremities: No edema, Capillary Refill Less than 3 Seconds Skin: No rashes, No breakdown Musculoskeletal: No Tenderness to Palpation of Joints or Extremities, left lower extremity is chronically bigger than the right lower extremity Neurological: No focal neurological deficits, Motor Exam 5/5 strength throughout, Sensory exam intact to light touch and pain Psych/Mental Status: Flat Results Lab / Micro Data 12/29/24 16:29 12/29/24 16:29 Labs: Laboratory Results - last 24 hr 12/29/24 16:29: WBC 11.4 H, RBC 4.90, Hgb 14.8, Hct 44.2, MCV 90.2, MCH 30.2, MCHC 33.5, RDW Std Deviation 45.9 H, RDW Coeff of Liss 14.0, Plt Count 181, MPV 9.7, Immature Gran % (Auto) 0.400, Neut % (Auto) 76.3 H, Lymph % (Auto) 11.4 L, [place] % (Auto) 10.7 H, Eos % (Auto) 0.9, Baso % (Auto) 0.3, Absolute Neuts (auto) 8.7 H, Absolute Lymphs (auto) 1.29, Nucleated RBC % 0, PT 15.5 H, INR 1.2, APTT 29.9, D-Dimer Quant (PE/DVT) < 0.27 L, Sodium 136, Potassium 4.5, Chloride 104, Carbon Dioxide 21.3, Anion Gap 11, BUN 39 H, Creatinine 2.01 H, Estim Creat Clear Calc 42.41 L, Est GFR (MDRD) Non-Af 35 L, BUN/Creatinine Ratio 19.3, Glucose 160 H, Calcium 9.0, Troponin T High Sens 64 H* Imaging Radiology Impression Chest X-Ray 05/03/25 17:00 IMPRESSION: Mild bibasilar atelectasis. Otherwise, no acute findings. Reading Location: [facility] Assessment & Plan Assessment/Plan (1) Atrial fibrillation: (2) Elevated troponin: PLAN: Plan 1. A-fib with RVR with demand ischemia/essential HTN/HLD/CAD status post stent/status post pacemaker placement ? He does not know if he has heart failure, he is unclear when his last echocardiogram was ? He did have a heart cath 5 years ago and he has a stent placed at in [facility], and he refuses to have any procedures done here ? His primary care doctor stopped his sildenafil for his pulmonary hypertension because of lightheadedness and dizziness he does see pulmonology in [place] once a year ? Will obtain an echocardiogram ? Will consult cardiology ? Will increase his metoprolol to 50 mg p.o. twice daily ? His Cardizem has been on hold as well for a couple of weeks ? Continue with Eliquis and aspirin ? Continue Lipitor ? Continue with his oral Lasix he does not appear to be volume overloaded at this time ? Initial troponin is 64, repeat is pending however this to be expected with his A-fib and tachycardia consistent with demand ischemia, he states that he had stents in 1 coronary artery but was told that he needed stents and to others but they were unable to do 2. Anxiety/depression ? He appears to be very anxious he is very flat ? Will continue with his escitalopram and Wellbutrin ? Will trial him on as needed Xanax 3. CKD 3 status post right nephrectomy for cancer ? Somewhat limits antiarrhythmic use though his renal function appears to be close to her at baseline ? Will continue to monitor DVT: Eliquis 75 minutes was spent on direct patient care, including documentation as well as chart review and collaboration with colleagues Charges/Coding Visit Charges Inpatient E&M: 60712 Init Hosp L3
[2024-12-29 18:55] LABS: Troponin T High Sens 2 HR 63 ng/L (<=22)
--- NOTE | 2024-12-29 19:14 | ECHOD_ITS ---
Reason For Study Reason For Study: AFIB Procedure This was a 2D Doppler, Color Flow transthoracic echocardiogram. The study was technically difficult. Contrast deferred due to single kidney. Exam performed in department. Left Ventricle Normal left ventricular thickness. Severe generalized LV hypokinesis. Estimated LVEF 25 to 30%. Right Ventricle Normal RV size. ICD or pacer leads identified within the right ventricle. Mild to moderate global right ventricular systolic dysfunction. Atria The left atrium is severely enlarged. The right atrium is mildly enlarged. ICD or pacer leads identified within the right atrium. Mitral Valve Moderate (2+) mitral valve insufficiency. Tricuspid Valve Mild tricuspid valve insufficiency. Right ventricular systolic pressure estimated to be 63 mmHg. Pulmonic Valve The pulmonic valve is not well visualized. Great Vessels Normal sized aortic root. Pericardium/Pleural No pericardial effusion. MMode/2D Measurements & Calculations LVIDd: 5.8 cm LVPWd: 0.84 cm LVOT diam: 2.0 cm LVOT area: 3.2 cm2 Ao root diam: 3.1 cm LAV(MOD-bp): 76.8 ml LA A4 area: 20.0 cm2 LAV(MOD-bp) Indexed: 33.7 ml/m2 LAV(MOD-sp2): 87.6 ml LAV(MOD-sp4): 59.3 ml LA dimension(2D): 4.6 cm RA A4 area: 20.0 cm2 Doppler Measurements & Calculations MV E max zhanna: 108.8 cm/sec Ao V2 max: 115.4 cm/sec LV V1 max: 80.5 cm/sec Ao max P.3 mmHg LV V1 max P.6 mmHg Ao V2 mean: 90.4 cm/sec LV V1 mean P.6 mmHg Ao mean P.5 mmHg LV V1 mean: 60.3 cm/sec Ao V2 VTI: 20.0 cm LV V1 VTI: 12.1 cm AV (velocity ratio): 0.60 KATYA(I,D): 1.9 cm2 KATYA(V,D): 2.2 cm2 SV(LVOT): 38.0 ml PA V2 max: 82.5 cm/sec TR max zhanna: 349.1 cm/sec PA V2 mean: 48.3 cm/sec TR max P.7 mmHg ECHO/Echo Complete Interpretation Summary Severe generalized LV hypokinesis. Estimated LVEF 25 to 30%. Mild to moderate global right ventricular systolic dysfunction. The left atrium is severely enlarged. The right atrium is mildly enlarged. Moderate (2+) mitral valve insufficiency. Mild tricuspid valve insufficiency. Right ventricular systolic pressure estimated to be 63 mmHg. The study was technically difficult. Ordering Physician: Danny Iqbal Referring Physician: SMITHA GARZA Performed By: Xenia Rangel RCS
[2024-12-29] MEDS: Escitalopram Oxalate 20 MG Tablet PO (21:35)
[2024-12-29] MEDS: ALPRAZolam 0.25 MG Tablet PO (21:35)
[2024-12-29] MEDS: Aspirin 81 MG TAB.CHEW PO (21:35)
[2024-12-29] MEDS: Atorvastatin Calcium 40 MG Tablet PO (21:35)
[2024-12-29] MEDS: APIXABAN 5 MG TABLET PO (21:35)
[2024-12-29] MEDS: buPROPion (XL) 300 MG TABLET.XL PO (21:36)
[2024-12-29] MEDS: Metoprolol Tartrate 50 MG Tablet PO (21:36)
[2024-12-29] MEDS: 0.9% Saline Lock 10 ML Syringe IV (21:37)
[2024-12-29 21:38] LABS: Troponin T High Sens 4 HR 64 ng/L (<=22)
[2024-12-30 03:30] VITALS: BP 133/101; PULSE 83; RESP 18; TEMP 36.2; O2SAT 96
[2024-12-30 06:23] LABS: Absolute Lymphocyte Count 1.11 X10^3/uL (0.83-4.51); Absolute Neutrophil Count 8.3 X10^3/uL (2.0-7.7); Basophil# 0.03 X10^3/uL; Basophil% 0.3 % (0-1); Eosinophil# 0.14 X10^3/uL; Eosinophils% 1.3 % (0-5); Hematocrit 43.7 % (40-54); Hemoglobin 14.4 g/dL (13.0-16.5); Lymphocyte # 1.11 X10^3/ul (0.83-4.51); Lymphocyte % 10.3 % (19-41); Mean Corpuscular Hgb 29.9 pg (27.0-32.0); Mean Corpuscular Volume 90.7 fL (80-94); Mean Platelet Vol. 9.6 fl (6.2-12.0); Monocyte# 1.19 X10^3/uL; NRBC Flagged by Analyzer 0 % (0-5); Neutrophil # 8.31 X10^3/uL (2.7-7.7); Neutrophil % 76.7 % (47-70); Platelet Count 169 K/mm3 (150-450); RBC Distribution Width CV 14.1 % (11.6-14.6); RBC Distribution Width SD 46.5 fl (35.1-43.9); Red Blood Count 4.82 M/mm3 (4.6-6.2); White Blood Count 10.8 K/mm3 (4.4-11.0)
[2024-12-30 07:36] LABS: Anion Gap 11 (5-15); BUN 36 mg/dL (4-19); BUN/Creat Ratio 18.6 RATIO (10-20); Calcium,Total 8.8 mg/dL (7.6-11.0); Carbon Dioxide 20.9 mmol/L (21.0-32.0); Chloride 103 mmol/L (98-108); Creatinine, Serum 1.91 mg/dL (0.70-1.20); EST Glomerular Filtration Rate 37 (>60); Estimated Creatinine Clearance 43.52 ml/min (50-250); Glucose 126 mg/dL (70-99); Potassium 4.5 mmol/L (3.3-5.1); Sodium Level 135 mmol/L (133-145)
--- NOTE | 2024-12-30 09:36 | PN.HOSP_ITS ---
Reason for Visit Reason for Visit: Diagnoses Unspecified atrial fibrillation (12/29/24) Other specified abnormal findings of blood chemistry (12/29/24) Subjective Subjective Saw patient at bedside this morning. Patient was sitting back comfortably in bed and in no acute distress. Flat affect noted. Stated he felt improved at rest today compared to previous days, denied any palpitations or lightheadedness/dizziness. Denied any chest pain or shortness of breath. Has not gotten out of bed yet this morning. No other new concerns today. Objective Data Objective Data Vital Signs: Vital Signs Temp Pulse Resp BP Pulse Ox O2 Del Method 97.1 F L 83 18 133/101 H 96 Room Air 12/30/24 03:30 12/30/24 03:30 12/30/24 03:30 12/30/24 03:30 12/30/24 03:30 12/30/24 08:27 Oxygen Delivery Method Room Air Weight: 114 kg Body Mass Index (BMI) 37.0 Intake & Output: Intake and Output for Last 24 Hours 12/28/24 12/29/24 12/30/24 23:59 23:59 23:59 Intake Total 480 / 480 Balance 480 / 480 Lab / Micro Data 12/30/24 06:08 12/30/24 06:06 Labs: Laboratory Results - last 24 hr 12/29/24 16:29: WBC 11.4 H, RBC 4.90, Hgb 14.8, Hct 44.2, MCV 90.2, MCH 30.2, MCHC 33.5, RDW Std Deviation 45.9 H, RDW Coeff of Liss 14.0, Plt Count 181, MPV 9.7, Immature Gran % (Auto) 0.400, Neut % (Auto) 76.3 H, Lymph % (Auto) 11.4 L, [place] % (Auto) 10.7 H, Eos % (Auto) 0.9, Baso % (Auto) 0.3, Absolute Neuts (auto) 8.7 H, Absolute Lymphs (auto) 1.29, Nucleated RBC % 0, PT 15.5 H, INR 1.2, APTT 29.9, D-Dimer Quant (PE/DVT) < 0.27 L, Sodium 136, Potassium 4.5, Chloride 104, Carbon Dioxide 21.3, Anion Gap 11, BUN 39 H, Creatinine 2.01 H, Estim Creat Clear Calc 42.41 L, Est GFR (MDRD) Non-Af 35 L, BUN/Creatinine Ratio 19.3, G lucose 160 H, Calcium 9.0, Troponin T High Sens 64 H* 12/29/24 18:23: Troponin T Hi Sens 2 Hr 63 H* 12/29/24 20:35: Troponin T Hi Sens 4Hr 64 H* 12/30/24 06:06: Sodium 135, Potassium 4.5, Chloride 103, Carbon Dioxide 20.9 L, Anion Gap 11, BUN 36 H, Creatinine 1.91 H, Estim Creat Clear Calc 43.52 L, Est GFR (MDRD) Non-Af 37 L, BUN/Creatinine Ratio 18.6, Glucose 126 H, Calcium 8.8 12/30/24 06:08: WBC 10.8, RBC 4.82, Hgb 14.4, Hct 43.7, MCV 90.7, MCH 29.9, MCHC 33.0, RDW Std Deviation 46.5 H, RDW Coeff of Liss 14.1, Plt Count 169, MPV 9.6, Immature Gran % (Auto) 0.400, Neut % (Auto) 76.7 H, Lymph % (Auto) 10.3 L, [place] % (Auto) 11.0 H, Eos % (Auto) 1.3, Baso % (Auto) 0.3, Absolute Neuts (auto) 8.3 H, Absolute Lymphs (auto) 1.11, Nucleated RBC % 0 Radiography Diagnostic Testing: Radiology Impression Chest X-Ray 12/29/24 17:00 IMPRESSION: Mild bibasilar atelectasis. Otherwise, no acute findings. Reading Location: [facility] Physical Exam Const alert, oriented x3 and no apparent distress Constitutional Narrative: Elderly male, class II obesity, flat affect noted but patient otherwise sitting back comfortably in bed, conversing normally and in no acute distress. General Appearance: cooperative and comfortable HEENT normocephalic, head/scalp atraumatic, hearing grossly normal bilaterally, nasal mucous membranes and turbinates normal and moist oral mucous membranes Eyes PERRL, EOMs intact bilaterally and conjunctivae normal Neck full ROM Chest inspection of chest normal Resp normal respiratory effort, normal air movement, no use of accessory muscles and clear to auscultation bilaterally Cardio no murmurs and peripheral pulses 2+ throughout Cardio Narrative: A-fib, rate controlled. GI normal to inspection, nondistended, normoactive bowel sounds, soft to palpation, non-tender and non-distended Back/Spine normal ROM Extremity normal to inspection, full ROM and no pedal edema Skin no rashes or lesions noted Psych mental status grossly normal Psych Narrative: Flat affect. Assessment & Plan Assessment/Plan (1) Atrial fibrillation: (2) Elevated troponin: PLAN: Plan Patient is a 74-year-old male who presented to [facility] ED on 12/29/2024 with chest pain and worsening lightheadedness/dizziness. 1. A-fib with RVR with chest discomfort and elevated troponins ? Cardiology consulted. Patient with known history of A-fib, unclear if paroxysmal versus persistent. Presented with persistent chest discomfort and lightheadedness/dizziness over the past few months. EKG on admit showed A-fib with RVR with rate 116, LBBB, nonspecific ST changes noted. Troponin trend 64 > 63 > 64. Seems more consistent with demand ischemia but given cardiac history as noted below, admitted for further workup. Echo ordered. Increased metoprolol from 25 to 50 mg twice daily. Patient has history of CAD with stenting done in [place] and at this time if any procedures are needed, he would prefer for them to be done in [place]. Continue home Eliquis. Appreciate further cardiology recommendations. 2. History of CAD with stenting, hypertension, hyperlipidemia, history of pacemaker placement ? Has previously followed with cardiology in [place]. Had stenting x 1 done about 5 years ago. No reported history of heart failure but he is unsure on when his last echo was done. Echo ordered as above. Continue home aspirin, statin, Lasix. Increased metoprolol dose as noted above. Has diltiazem listed on regimen but this is apparently on hold for the last few weeks for unclear reason. 3. History of pulmonary hypertension ? Reportedly follows with pulmonology in [place] once a year. Was on sildenafil for this but his PCP recently held this due to his ongoing lightheadedness and dizziness. Will continue to hold for now. Repeat echo ordered as above. 4. Anxiety/depression ? Patient anxious on admit with very flat affect. Continue home escitalopram and Wellbutrin, and continue low-dose as needed Xanax that was started on admission. 5. CKD 3a with history of kidney cancer s/p right nephrectomy ? Creatinine stable at baseline 1.9-2.0 on admit. 6. BPH with obstructive symptoms ? Stable. Continue home finasteride. 7. Class II obesity ? BMI 37 on admit. Complicates hospital course, care and prognosis. DVT prophylaxis: Not indicated, on Eliquis CODE STATUS: Full code, verified Expected disposition: Home, 1 to 2 days Total clinical time spent by myself addressing the patient's medical issues, reviewing all the data, and collaborating with patient's care team: 35 minutes. Charges/Coding Visit Charges Inpatient E&M: 23127 Subs Hosp L2
[2024-12-30 10:32] VITALS: BP 134/85; PULSE 87; RESP 16; TEMP 36.9; O2SAT 96
[2024-12-30 10:41] VITALS: BP 134/85; PULSE 87
[2024-12-30] MEDS: Furosemide 20 MG Tablet PO (10:41)
[2024-12-30] MEDS: APIXABAN 5 MG TABLET PO ×2 (10:41→21:30)
[2024-12-30] MEDS: Cholecalciferol (VIT D3) 25 MCG TABLET (1,000 UNITS) 50 MCG PO (10:41)
[2024-12-30] MEDS: Finasteride 5 MG Tablet PO (10:41)
[2024-12-30] MEDS: Metoprolol Tartrate 50 MG Tablet PO ×2 (10:41→21:30)
[2024-12-30 17:19] VITALS: BP 148/86; PULSE 103; RESP 18; TEMP 37.2; O2SAT 95
[2024-12-30 21:29] VITALS: BP 118/69; PULSE 83; RESP 18; TEMP 36.9; O2SAT 97
[2024-12-30 21:30] VITALS: PULSE 83
[2024-12-30] MEDS: Atorvastatin Calcium 40 MG Tablet PO (21:30)
[2024-12-30] MEDS: ALPRAZolam 0.25 MG Tablet PO (21:30)
[2024-12-30] MEDS: Escitalopram Oxalate 20 MG Tablet PO (21:30)
[2024-12-30] MEDS: buPROPion (XL) 300 MG TABLET.XL PO (21:30)
[2024-12-30] MEDS: Aspirin 81 MG TAB.CHEW PO (21:30)
[2024-12-30] MEDS: 0.9% Saline Lock 10 ML Syringe IV (21:30)
[2024-12-31 03:30] VITALS: BP 136/81; PULSE 98; RESP 18; TEMP 36.7; O2SAT 96
[2024-12-31 08:01] LABS: Hematocrit 42.1 % (40-54); Hemoglobin 14.1 g/dL (13.0-16.5); Mean Corp Hgb Conc 33.5 g/dL (32-36); Mean Corpuscular Hgb 30.2 pg (27.0-32.0); Mean Corpuscular Volume 90.1 fL (80-94); Platelet Count 174 K/mm3 (150-450); RBC Distribution Width CV 13.8 % (11.6-14.6); RBC Distribution Width SD 45.2 fl (35.1-43.9); Red Blood Count 4.67 M/mm3 (4.6-6.2); White Blood Count 9.8 K/mm3 (4.4-11.0)
--- NOTE | 2024-12-31 08:50 | PCM.CONS.C ---
Assessment & Plan Assessment/Plan (1) Atrial fibrillation: QUALIFIERS: Atrial fibrillation type: persistent (not longstanding) Qualified Code(s): I48.19 - Other persistent atrial fibrillation PLAN: Patient carries a history of chronic atrial fibrillation. He does have a permanent pacemaker implanted through the [facility]. We do not have previous ECGs here. He is being evaluated with a 2D echocardiogram. It appears that some of his symptoms were precipitated by medication changes in ambulatory setting. He will be reinstituted on his metoprolol. He is also on diltiazem. The diltiazem is currently on hold. (2) Chest pain: QUALIFIERS: Chest pain type: unspecified Qualified Code(s): R07.9 - Chest pain, unspecified PLAN: Patient complains of some chest discomfort. This started after his metoprolol was discontinued. He is not currently complaining of any he does have a minimal bump in his enzymes to the mid 60s. These have been unchanged despite no recurrence of his symptoms. He does have a left bundle branch block on his resting ECG. Will obtain a pharmacologic nuclear stress test to rule out active ischemia. The patient does have known coronary disease status post remote stenting. Previous invasive evaluations were carried out at [facility]. (3) Pacemaker: PLAN: Patient's pacemaker is monitored through the [facility]. He sees Dr. Dennis PLAN: Plan 1. Will obtain 2D echocardiogram and pharmacologic nuclear stress test. 2. Further recommendations to follow. HPI Consult Data Date of Consult: 12/31/24 HPI Narrative Reason for Consultation: Atrial fibrillation with rapid ventricular response. HPI Narrative: ALISA HAGAN, is a 74 M who presents with a history of chronic atrial fibrillation on Eliquis and rate control with metoprolol. The patient was recently evaluated by his primary care physician due to a floating symptom. He has medications were adjusted including stopping his metoprolol. Once that was done the patient developed chest discomfort and palpitations. He reinstituted his metoprolol on 12/28/2024 and his symptoms resolved. They recurred on Tuesday and he came to the emergency department. The patient carries a history of atrial fibrillation his telemetry has shown atrial fibs with heart rates in 90-95 bpm. He also has a history of chronic kidney disease and coronary artery disease status post remote stenting. He states 1 stent was placed on the backside of his heart but there were 2 other lesions that could not be addressed due to bifurcating lesions. He also has a history of a permanent pacemaker implanted at [facility] in June 2020. There is no prior history of him being evaluated here at [facility] from a cardiovascular standpoint. The patient's ECG shows atrial fibrillation at 116 bpm with a left bundle branch block on presentation. Troponins were minimally elevated at 63, 64, and 63. The patient is resting comfortably and asymptomatic in his chair. 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 Creatinine is 1.9. [facility] Medical History (Updated 12/31/24 @ 09:[address] Flaquito Read MD) Pulmonary embolism Blood clot in leg Coronary stent patent Pacemaker Cancer of right kidney A-fib Home Medications ?Medication ?Instructions ?Recorded ?Last Taken ?Type apixaban 5 mg tablet (Eliquis) 5 mg PO BID 12/29/24 12/29/24 History aspirin 81 mg tablet,delayed 81 mg PO QHS 12/29/24 12/28/24 History release (Adult Aspirin Regimen) atorvastatin 40 mg tablet 40 mg PO QHS 12/29/24 12/28/24 History bupropion HCl 150 mg 24 hr tablet, 300 mg PO QHS 12/29/24 12/28/24 History extended release calcium carbonate 600 mg PO BID 12/29/24 12/29/24 History cholecalciferol (vitamin D3) 50 50 mcg PO BID 12/29/24 12/29/24 History mcg (2,000 unit) tablet (D3 DOTS) diltiazem HCl 180 mg 180 mg PO DAILY 12/29/24 Unknown History capsule,extended release 24 hr Held on 12/29/24. Instructions: Ordered escitalopram oxalate 20 mg tablet 20 mg PO QHS 12/29/24 12/28/24 History finasteride 5 mg tablet 5 mg PO DAILY 12/29/24 12/29/24 History furosemide 20 mg tablet 20 mg PO DAILY 12/29/24 12/29/24 History metoprolol succinate 25 mg 25 mg PO BID 12/29/24 12/29/24 History tablet,extended release 24 hr olopatadine 0.1 % eye drops (Eye 1 drp EACH EYE DAILY 12/29/24 Unknown History Allergy Itch-Redness Relief) sildenafil (pulm.hypertension) 20 40 mg PO DAILY 12/29/24 Unknown History mg tablet Held on 12/29/24. Instructions: MD Ordered Allergy/AdvReac Type Severity Reaction Status Date / Time No Known Allergies Allergy Verified 12/29/24 16:10 Family History Other Cancer Diabetes Surgical History S/P insertion of IVC (inferior vena caval) filter History of right nephrectomy Hx of tonsillectomy Hx of cholecystectomy Social History housing: house Smoking Status: Never smoker ROS Constitutional Constitutional: Reports as per HPI Eyes Eyes: Reports as per HPI ENT HEENT: Reports systems reviewed and no addt'l complaints, except as documented Cardiovascular Cardiovascular: Reports as per HPI Respiratory/Chest Respiratory/Chest: Reports as per HPI Gastrointestinal Gastrointestinal: Reports systems reviewed and no addt'l complaints, except as documented Genitourinary Genitourinary: Reports systems reviewed and no addt'l complaints, except as documented Musculoskeletal Musculoskeletal: Reports systems reviewed and no addt'l complaints, except as documented Integumentary Integumentary: Reports systems reviewed and no addt'l complaints, except as documented Neurologic Neurologic: Reports as per HPI Psychiatric Psychiatric: Reports as per HPI Endocrine Endocrinology: Reports systems reviewed and no addt'l complaints, except as documented Hematologic/Lymphatic Hematologic/Lymphatic: Reports systems reviewed and no addt'l complaints, except as documented Allergic/Immunologic Allergic/Immunologic: Reports systems reviewed and no addt'l complaints, except as documented Physical Exam Const alert and oriented x3 HEENT normocephalic Eyes PERRL Neck full ROM Chest inspection of chest normal Chest: left pectoral incision Resp normal respiratory effort and clear to auscultation bilaterally Cardio regular rate, S1 normal heart sound, S2 normal heart sound, no murmurs, no rub and no gallops Rhythm: abnormal rhythm irregularly irregular GI normal to inspection, nondistended, normoactive bowel sounds Extremity General Extremity: edema bilateral lower extremity Details: trace Neuro Neuro Narrative: alert and OX3 Psych mental status grossly normal Risk Stratification Risk Stratification Applicable: Yes Age >/= 65: Yes >/= 3 CAD Risk Factors (HTN, HLD, DM, family hx of CAD, or current smoker): Yes Aspirin Use in the Past 7 Days: Yes Severe Angina (>/= episodes in 24 hours): No EKG ST Changes >/= 0.5mm: No Positive Cardiac Marker: Yes AYAAN Risk Stratification Score: 4 AYAAN % Risk: 20% Risk Objective Data Vital Signs: Vital Signs Temp Pulse Resp BP Pulse Ox O2 Del Method 98.1 F 98 18 136/81 H 96 Room Air 12/31/24 03:30 12/31/24 03:30 12/31/24 03:30 12/31/24 03:30 12/31/24 03:30 12/31/24 03:30 Oxygen Delivery Method Room Air Weight: 251 lb 5.231 oz Body Mass Index (BMI) 37.0 Intake & Output: Intake and Output for Last 24 Hours 12/29/24 12/30/24 12/31/24 23:59 23:59 23:59 Intake Total 480 / 480 1000 / 1000 Balance 480 / 480 1000 / 1000 Lab / Micro Data Attestation: I reviewed the patient's lab results. 12/31/24 07:12 12/30/24 06:06 Labs: Laboratory Results - last 24 hr 12/31/24 07:12: WBC 9.8, RBC 4.67, Hgb 14.1, Hct 42.1, MCV 90.1, MCH 30.2, MCHC 33.5, RDW Std Deviation 45.2 H, RDW Coeff of Liss 13.8, Plt Count 174, MPV 10.0 Rhythm Strip Rhythm Strip: A-fib Rate: 90 Ectopy: None Cardiology Labs/Tests 12/31/24 07:12: WBC 9.8, RBC 4.67, Hgb 14.1, Hct 42.1, MCV 90.1, MCH 30.2, MCHC 33.5, Plt Count 174, MPV 10.0 Rhythm: EKG: ECHO: Stress Test: Cardiac Cath: PCI: CT Surgery: Holter monitor: EPS: PPM: CXR: Chest CT Scan:
[2024-12-31 09:05] LABS: Anion Gap 13 (5-15); BUN 39 mg/dL (4-19); BUN/Creat Ratio 20.6 RATIO (10-20); Calcium,Total 8.8 mg/dL (7.6-11.0); Carbon Dioxide 19.7 mmol/L (21.0-32.0); Chloride 104 mmol/L (98-108); Creatinine, Serum 1.88 mg/dL (0.70-1.20); EST Glomerular Filtration Rate 37 (>60); Estimated Creatinine Clearance 44.22 ml/min (50-250); Glucose 115 mg/dL (70-99); Potassium 4.5 mmol/L (3.3-5.1); Sodium Level 136 mmol/L (133-145)
--- NOTE | 2024-12-31 11:36 | STRESSREP_ITS ---
Stress Test Report Date: 12/31/2024 Procedure: Pharmacologic stress nuclear imaging study Indications: Chest pain Consent: Per the patient Procedure: The patient underwent pharmacologic (Regadenoson 0.4mg ) evaluation with a peak heart rate of 108 beats per minute (72%predicted maximal heart rate) and a peak blood pressure of 142/86 mmHg. The baseline ECG demonstrated atrial fibrillation with left bundle branch block. The peak pharmacologic ECG was nondiagnostic secondary to baseline abnormality. Baseline atrial fibrillation. No ventricular arrhythmias noted. There was no complaint of chest discomfort during pharmacologic infusion or recovery. The patient was injected with 14.8 millicuries of technetium 99m Cardiolite and subsequently rest SPECT Cardiolite nuclear imaging was obtained in the horizontal long, vertical long, and short axis views. The patient underwent pharmacologic (Regadenoson) evaluation. The patient was injected with 44.3 millicuries of technetium 99m Cardiolite and subsequently stress SPECT Cardiolite nuclear imaging was obtained in the horizontal long, vertical long, and short axis views. A gated Cardiolite study at peak stress was obtained. The examination was stopped secondary to completion of protocol. Rest and stress SPECT Cardiolite nuclear imaging status post realignment, normalization, and attenuation correction demonstrate mild to moderately reduced perfusion of the septum and distal anterior wall which is fixed. This could represent artifact secondary to underlying left bundle branch block versus prior nontransmural infarct. No reversible ischemia noted. The gated study shows generalized hypokinesis. The reported LVEF is 29%. Impression: 1. Pharmacologic (Regadenoson) evaluation 2. Peak pharmacologic ECG with no diagnostic changes secondary to baseline abnormality. 3. Baseline atrial fibrillation.. 5. Fixed septal and mid to distal anterior hypoperfusion suggestive of previous nontransmural infarct versus artifact secondary to left bundle branch block. No reversible changes noted. 6. The gated Cardiolite study reports an LVEF of 29%. This note was generated with [employer] software. It may contain incorrect words, spelling, and punctuation that were not noted in checking the note before signing.
[2024-12-31 12:16] VITALS: BP 120/107; PULSE 93
[2024-12-31] MEDS: Cholecalciferol (VIT D3) 25 MCG TABLET (1,000 UNITS) 50 MCG PO (12:16)
[2024-12-31] MEDS: Metoprolol Tartrate 50 MG Tablet PO (12:16)
[2024-12-31] MEDS: Finasteride 5 MG Tablet PO (12:21)
[2024-12-31] MEDS: Furosemide 20 MG Tablet PO (12:21)
[2024-12-31 12:28] VITALS: BP 120/107; PULSE 90; RESP 16; TEMP 36.8; O2SAT 97
--- NOTE | 2024-12-31 14:09 | CASEMGMT ---
JOANN OSEI Assessment Face to Face with patient for initial transition planning/care coordination assessment. JOANN OSEI introduced self and role at [facility], pt voices understanding. Pt is A&Ox4 and is resting comfortably in bed and is calm. Care providers, pharmacy, and demographics verified. Admitting dx: AFIB RVR LACE Strata: 1 PCP: Flaquito Fernandes Specialists: Dr Waggoner (Oncologist [place]), Dr. Poncho Frias (Pulmonary [place]), Dr Horan (Cardio [place]) Preferred Pharmacy: [facility] Insurance: MCR A/B, MMO Prescription Benefit: Yes LNOK: Sandie (Daughter), Mello (Son) Living Arrangements: Pt lives alone in a single story home with 2 steps to enter ADLs/IADLs: Pt states that he is entirely independent. 6-click score is 24 Transportation: Self, family, friends. Denies concerns DME: [employer]. BGM with sufficient supplies. Pulse ox. Cane. FWW. Grab bars HHC/SNF: Reports hx @ [facility] subsequently but cannot recall the name of the agency Pt?s goal: Home Plan: Home, anticipate no additional needs. Pt states that he takes Eliquis at home already and that it is affordable. Pt denies the need for any form of OP Tx or additional resources. Pt denies any further questions or concerns and states that he feels safe returning home alone once medically ready and denies further needs at this time. Report given to [facility] [facility] [employer] [facility] CM. Cindy Monique RN, CM
--- NOTE | 2024-12-31 14:17 | PN.HOSP_ITS ---
Reason for Visit Reason for Visit: Diagnoses Other persistent atrial fibrillation (12/29/24) Unspecified atrial fibrillation (12/29/24) Chest pain, unspecified (12/29/24) Other specified abnormal findings of blood chemistry (12/29/24) Presence of cardiac pacemaker (12/29/24) Objective Data Objective Data Vital Signs: Vital Signs Temp Pulse Resp BP Pulse Ox O2 Del Method 98.2 F 90 16 120/107 H 97 Room Air 12/31/24 12:28 12/31/24 12:28 12/31/24 12:28 12/31/24 12:28 12/31/24 12:28 12/31/24 12:28 Oxygen Delivery Method Room Air Weight: 251 lb 5.231 oz Body Mass Index (BMI) 37.0 Intake & Output: Intake and Output for Last 24 Hours 12/29/24 12/30/24 12/31/24 23:59 23:59 23:59 Intake Total 480 / 480 1000 / 1000 100 / 100 Balance 480 / 480 1000 / 1000 100 / 100 Lab / Micro Data 12/31/24 07:12 12/31/24 07:17 Labs: Laboratory Results - last 24 hr 12/31/24 07:12: WBC 9.8, RBC 4.67, Hgb 14.1, Hct 42.1, MCV 90.1, MCH 30.2, MCHC 33.5, RDW Std Deviation 45.2 H, RDW Coeff of Liss 13.8, Plt Count 174, MPV 10.0 12/31/24 07:17: Sodium 136, Potassium 4.5, Chloride 104, Carbon Dioxide 19.7 L, Anion Gap 13, BUN 39 H, Creatinine 1.88 H, Estim Creat Clear Calc 44.22 L, Est GFR (MDRD) Non-Af 37 L, BUN/Creatinine Ratio 20.6 H, Glucose 115 H, Calcium 8.8 Rhythm Strip Rhythm Strip: A-fib Rate: 90 Ectopy: None Assessment & Plan Assessment/Plan (1) Atrial fibrillation: QUALIFIERS: Atrial fibrillation type: persistent (not longstanding) Qualified Code(s): I48.19 - Other persistent atrial fibrillation (2) Elevated troponin: PLAN: Plan Patient is a 74-year-old male who presented to [facility] ED on 12/29/2024 with intermittent chest pain and worsening lightheadedness/dizziness. He also had lightheadedness/dizziness for past few months. Initially his chest discomfort got better with metoprolol but recurred on last Tuesday therefore came to ED 1. A-fib with RVR with chest discomfort and elevated troponins: Patient is being admitted in PCU. Twelve-lead EKG shows A-fib 116 beats minute, LBBB. Troponins minimally elevated 63, 64 and 63 flat and intermittent most related to demand ischemia. Patient stress test is ordered. ? Cardiology consulted. 2D echo shows EF 25 to 30%, severe global hypokinesis, mild to moderate right ventricle systolic dysfunction, RVSP high 63 mmHg, mild TR, 2+ MR. Continue home Eliquis. 2. History of CAD with stenting, hypertension, hyperlipidemia, history of pacemaker placement. ? Has previously followed with cardiology in [place]. Had stenting x 1 done about 5 years ago. Patient on aspirin and statin. Furosemide and metoprolol dose is getting optimized. Has diltiazem listed on regimen but this is apparently on hold for the last few weeks for unclear reason. 3. History of pulmonary hypertension ? Reportedly follows with pulmonology in [place] once a year. Was on sildenafil for this but his PCP recently held this due to his ongoing lightheadedness and dizziness. Will continue to hold for now. Repeat echo ordered as above. 4. Anxiety/depression ? Patient anxious on admit with very flat affect. Continue home escitalopram and Wellbutrin, and continue low-dose as needed Xanax that was started on admission. 5. CKD 3a with history of kidney cancer s/p right nephrectomy ? Creatinine stable at baseline 1.9-2.0 on admit. 6. BPH with obstructive symptoms ? Stable. Continue home finasteride. 7. Class II obesity ? BMI 37 on admit. Complicates hospital course, care and prognosis. DVT prophylaxis: Not indicated, on Eliquis CODE STATUS: Full code, verified Expected disposition: Home, 1 to 2 days Total clinical time spent by myself addressing the patient's medical issues, reviewing all the data, and collaborating with patient's care team: 35 minutes.
--- NOTE | 2024-12-31 14:53 | PCM.DC ---
Discharge Instructions Diet Discharge Diet: Low fat / Low cholesterol and 2000 mg Sodium Diet DC O2, CPAP, BIPAP needs Home O2 Discharge instructions: No Dressing / Incision Discharge Activity: Return to Normal Activity Weight Bearing Status: Weight bearing as tolerated Dressing / Incision Call your doctor if you observe: Fever of 101 or Higher, Coldness, Increased Pain, Numbness or Tingling, Change in Color, Inability to urinate, Inability to have a bowel movement, Shortness of breath, Dizziness, Fainting spells, Swelling in the ankles, Chest pain, Prolonged hiccupping, Increased palpitations (irregular heartbeat) and Calf discomfort Follow Up Care When: IN 2 WEEKS Test Results: Test results from this visit will be discussed in further detail at your follow-up appointment, if applicable. Discharge Plan Admission Admit Date/Time: 12/29/24 18:43 Primary Reason for Your Visit: Acute on chronic heart failure Attending Provider: Alex Castellano Primary Care Provider: Flaquito Fernandes Consulting Providers: Jayme Ross; Danny Iqbal; Latrell Avery Instructions Additional Instructions / Restrictions: Follow-up with own therapeutic case manager in [facility] Dr. Bro in 2 weeks Discharge Orders/Prescriptions Prescriptions: New furosemide 40 mg tablet 40 mg PO DAILY 30 Days Qty: 30 2RF Continued atorvastatin 40 mg tablet 40 mg PO QHS Eliquis 5 mg tablet 5 mg PO BID escitalopram oxalate 20 mg tablet 20 mg PO QHS calcium carbonate 600 mg calcium (1,500 mg) tablet 600 mg PO BID aspirin [Adult Aspirin Regimen] 81 mg tablet,delayed release (DR/EC) 81 mg PO QHS finasteride 5 mg tablet 5 mg PO DAILY bupropion HCl 150 mg tablet extended release 24 hr 300 mg PO QHS cholecalciferol (vitamin D3) [D3 DOTS] 50 mcg (2,000 unit) tablet 50 mcg PO BID olopatadine [Eye Allergy Itch-Redness Rlf] 0.1 % drops 1 drp EACH EYE DAILY Patient Comments: PT DOES IF HE REMEMBERS Changed diltiazem HCl 180 mg capsule,extended release 24hr 180 mg PO BREAKFAST 30 Days Qty: 0 0RF metoprolol succinate 25 mg tablet extended release 24 hr 50 mg PO BID 30 Days Qty: 0 0RF sildenafil (pulm.hypertension) 20 mg tablet 40 mg PO LUNCH 30 Days Qty: 0 0RF Discontinued furosemide 20 mg tablet 20 mg PO DAILY Referrals / Follow Up: Flaquito Fernandes DO [Primary Care Provider] - Within 2 Weeks Disposition Disposition (needs filled in before D/C Order can be placed): Home, Self Care
--- NOTE | 2024-12-31 15:14 | PCM.DC.SUM ---
Providers Date of Admission: 12/29/24 Date of Discharge: 12/31/24 Primary Care Physician: Dr. Flaquito Fernandes, DO Consultations 12/29/24 19:14 Consult: Cardiology Routine Consulting Provider: Jayme Ross Reason for Consult: afib EMERGENT Consult: No MD Notified: Yes Date Notified: 12/30/24 Time Notified: 06:41 Method of Notification: Text Reason For Visit: AFIB WITH RVR Diagnosis Discharge Diagnosis (1) Atrial fibrillation: Status: Acute Code(s): I48.91 - Unspecified atrial fibrillation Qualifiers: Atrial fibrillation type: persistent (not longstanding) Qualified Code(s): I48.19 - Other persistent atrial fibrillation (2) Elevated troponin: Status: Acute Code(s): R79.89 - Other specified abnormal findings of blood chemistry Plan Patient is a 74-year-old male who presented to [facility] ED on 12/29/2024 with intermittent chest pain and worsening lightheadedness/dizziness. He also had lightheadedness/dizziness for past few months. Initially his chest discomfort got better with metoprolol but recurred on last Tuesday therefore came to ED 1. A-fib with RVR with chest discomfort and elevated troponins: Patient is being admitted in PCU. Twelve-lead EKG shows A-fib 116 beats minute, LBBB. Troponins minimally elevated 63, 64 and 63 flat and intermittent most related to demand ischemia. Patient is stress test was negative for acute ischemia but showed old infarct. ? Cardiology consulted. 2D echo shows EF 25 to 30%, severe global hypokinesis, mild to moderate right ventricle systolic dysfunction, RVSP high 63 mmHg, mild TR, 2+ MR. Heart rate is controlled but is still in A-fib. Continue Eliquis 5 mg twice daily. Patient is being discharged on increased dose of furosemide 40 mg daily. Metoprolol succinate increased to 50 mg twice daily, continue diltiazem 180 mg daily. Advised to follow-up with his digital media planner Dr. Horan in 2 weeks 2. History of CAD with stenting, hypertension, hyperlipidemia, history of pacemaker placement. ? Has previously followed with cardiology in [place]. Had stenting x 1 done about 6-7years ago. Patient on aspirin and statin. 12/31: Patient advised to discuss with the digital media planner regarding continuation of baby aspirin as he is already on Eliquis. 3. History of pulmonary hypertension ? Reportedly follows with pulmonology in [place] once a year. Patient on sildenafil, timing changed to the evening as patient having dizziness lightheadedness low BP with all antihypertensive medications at the same time in the morning. Advised to wear thigh-high FERNANDO hose 4. Anxiety/depression ? Patient anxious on admit with very flat affect. Continue home escitalopram and Wellbutrin, and continue low-dose as needed Xanax that was started on admission. 5. CKD 3a with history of kidney cancer s/p right nephrectomy ? Creatinine stable at baseline 1.9-2.0 on admit. 6. BPH with obstructive symptoms ? Stable. Continue home finasteride. 7. Class II obesity ? BMI 37 on admit. Complicates hospital course, care and prognosis. DVT prophylaxis: Not indicated, on Eliquis CODE STATUS: Full code, verified Discharge medication reconciliation done. Discharge follow-up instructions completed. Discharge process discussed with the patient and all questions were answered to patient's satisfaction. Follow with PCP in 1 to 2 weeks Total time spent, exact 35 minutes on discharge meds reconciliation, examination, coordination of care with nurses and ancillary staff, review of imaging and blood test and discussion with the patient on follow-up instructions. Medications at Discharge Home Medications apixaban 5 mg tablet (Eliquis) 5 mg PO BID 12/29/24 aspirin 81 mg tablet,delayed release (Adult Aspirin Regimen) 81 mg PO QHS 12/29/24 atorvastatin 40 mg tablet 40 mg PO QHS 12/29/24 bupropion HCl 150 mg 24 hr tablet, extended release 300 mg PO QHS 12/29/24 calcium carbonate 600 mg PO BID 12/29/24 cholecalciferol (vitamin D3) 50 mcg (2,000 unit) tablet (D3 DOTS) 50 mcg PO BID 12/29/24 escitalopram oxalate 20 mg tablet 20 mg PO QHS 12/29/24 finasteride 5 mg tablet 5 mg PO DAILY 12/29/24 olopatadine 0.1 % eye drops (Eye Allergy Itch-Redness Relief) 1 drp EACH EYE DAILY 12/29/24 diltiazem HCl 180 mg capsule,extended release 24 hr 180 mg PO BREAKFAST 30 days #0 caps 12/31/24 furosemide 40 mg tablet 40 mg PO DAILY 1 month #30 tabs 12/31/24 metoprolol succinate 25 mg tablet,extended release 24 hr 50 mg (2 x 25 mg) PO BID 30 days #0 tabs 12/31/24 sildenafil (pulm.hypertension) 20 mg tablet 40 mg (2 x 20 mg) PO LUNCH 30 days #0 tabs 12/31/24 Physical Exam Narrative Seen and examined Patient denies any chest pain or shortness of breath but he had on last Tuesday and Tuesday. His other symptoms include dizziness lightheadedness but currently denies that.On multiple cardiac medications. Multiple DVT/PE on left leg therefore left leg more swollen than the right. Physical exam General: Alert, Oriented x3, Cooperative HEENT: Atraumatic, PERRLA, EOMI, Normocephalic. Oral: No Gingival or Mucosal Lesions/ Ulcerations Neck: Supple, No JVD, Negative Carotid Bruits Chest wall/Lungs: Air entry diminished in bilateral lung bases. No crepitation/rhonchi Cardiovascular: Irregular rate, rate controlled normal S1,S2, systolic murmur. History of chronic Abdomen: Bowel Sounds Present, Soft, Non Tender, Non-Distended : No dysuria. No renal angle tenderness. No suprapubic tenderness. Extremities: Mild edema, left more than right. Capillary Refill Less than 3 Seconds Skin: No rashes, No breakdown Musculoskeletal: No Tenderness to Palpation of Joints or Extremities Neurological: Cranial nerves II-XII grossly intact, DTR 2+/4. No acute focal neurological deficit. Psych/Mental Status: Normal Affect, Appropriate. Weight / BMI Weight Weight: 251 lb 5.231 oz Body Mass Index (BMI) 37.0 ABG / Lab / Microbiology Data 12/31/24 07:12 12/31/24 07:17 Laboratory: Laboratory Results - last 24 hr 12/31/24 07:12: WBC 9.8, RBC 4.67, Hgb 14.1, Hct 42.1, MCV 90.1, MCH 30.2, MCHC 33.5, RDW Std Deviation 45.2 H, RDW Coeff of Liss 13.8, Plt Count 174, MPV 10.0 12/31/24 07:17: Sodium 136, Potassium 4.5, Chloride 104, Carbon Dioxide 19.7 L, Anion Gap 13, BUN 39 H, Creatinine 1.88 H, Estim Creat Clear Calc 44.22 L, Est GFR (MDRD) Non-Af 37 L, BUN/Creatinine Ratio 20.6 H, Glucose 115 H, Calcium 8.8 D/C Instructions Discharge Diet: Low fat / Low cholesterol and 2000 mg Sodium Diet Weight Bearing Status: Weight bearing as tolerated Call your doctor if you observe: Fever of 101 or Higher, Coldness, Increased Pain, Numbness or Tingling, Change in Color, Inability to urinate, Inability to have a bowel movement, Shortness of breath, Dizziness, Fainting spells, Swelling in the ankles, Chest pain, Prolonged hiccupping, Increased palpitations (irregular heartbeat) and Calf discomfort DC O2, CPAP, BIPAP Needs Home O2 Discharge instructions: No When: IN 2 WEEKS Meaningful Use Info Meaningful Use Meaningful Use Diagnoses (Choose all that apply): None applicable and CHF CHF ANGIE/ARB ordered at discharge?: No Reason ANGIE/ARB not ordered?: Worsening renal disease Documented LVEF (%): 25 Ischemic Stroke Statin Dosing Therapy Reference: STATIN DOSE THERAPY REFERENCE: * Patients > 75 years receive moderate or high dose statin therapy. * Patients 75 years or YOUNGER should receive HIGH intensity statin dose unless contraindicated. You will be required to document reason for non-treatment if statin daily dose does not meet guidelines. HIGH DOSE STATIN THERAPY DAILY Atorvastatin > than or = to 40 mg Rosuvastatin > than or = to 20 mg Amlodipine + Atorvastatin > than or = to 2.5/40 mg Ezetimibe + Simvastatin 10/80 mg Simvastatin 80mg Discharge Plan Admission Admit Date/Time: 12/29/24 18:43 Primary Reason for Your Visit: Acute on chronic heart failure Attending Provider: Alex Castellano Primary Care Provider: Flaquito Fernandes Consulting Providers: Jayme Ross; Danny Iqbal; Latrell Avery Instructions Additional Instructions / Restrictions: Follow-up with own digital media planner in [facility] Dr. Bro in 2 weeks Discharge Orders/Prescriptions Prescriptions: New furosemide 40 mg tablet 40 mg PO DAILY 30 Days Qty: 30 2RF Continued atorvastatin 40 mg tablet 40 mg PO QHS Eliquis 5 mg tablet 5 mg PO BID escitalopram oxalate 20 mg tablet 20 mg PO QHS calcium carbonate 600 mg calcium (1,500 mg) tablet 600 mg PO BID aspirin [Adult Aspirin Regimen] 81 mg tablet,delayed release (DR/EC) 81 mg PO QHS finasteride 5 mg tablet 5 mg PO DAILY bupropion HCl 150 mg tablet extended release 24 hr 300 mg PO QHS cholecalciferol (vitamin D3) [D3 DOTS] 50 mcg (2,000 unit) tablet 50 mcg PO BID olopatadine [Eye Allergy Itch-Redness Rlf] 0.1 % drops 1 drp EACH EYE DAILY Patient Comments: PT DOES IF HE REMEMBERS Changed diltiazem HCl 180 mg capsule,extended release 24hr 180 mg PO BREAKFAST 30 Days Qty: 0 0RF metoprolol succinate 25 mg tablet extended release 24 hr 50 mg PO BID 30 Days Qty: 0 0RF sildenafil (pulm.hypertension) 20 mg tablet 40 mg PO LUNCH 30 Days Qty: 0 0RF Discontinued furosemide 20 mg tablet 20 mg PO DAILY Referrals / Follow Up: Flaquito Fernandes DO [Primary Care Provider] - Within 2 Weeks Disposition Disposition (needs filled in before D/C Order can be placed): Home, Self Care Charges/Coding Visit Charges Inpatient E&M: 66099 Disch Hosp >30min
--- NOTE | 2024-12-31 16:43 | PHA.DC_ITS ---
Pharmacy Research [facility] Reconciliation Pharmacy Service has performed discharge medication reconciliation for this patient. The patient's discharge medication list was reviewed for discrepancies and discrepancies were resolved. Medications at Discharge Home Medications apixaban 5 mg tablet (Eliquis) 5 mg PO BID 12/29/24 aspirin 81 mg tablet,delayed release (Adult Aspirin Regimen) 81 mg PO QHS 12/29/24 atorvastatin 40 mg tablet 40 mg PO QHS 12/29/24 bupropion HCl 150 mg 24 hr tablet, extended release 300 mg PO QHS 12/29/24 calcium carbonate 600 mg PO BID 12/29/24 cholecalciferol (vitamin D3) 50 mcg (2,000 unit) tablet (D3 DOTS) 50 mcg PO BID 12/29/24 escitalopram oxalate 20 mg tablet 20 mg PO QHS 12/29/24 finasteride 5 mg tablet 5 mg PO DAILY 12/29/24 olopatadine 0.1 % eye drops (Eye Allergy Itch-Redness Relief) 1 drp EACH EYE DAILY 12/29/24 diltiazem HCl 180 mg capsule,extended release 24 hr 180 mg PO BREAKFAST 30 days #0 caps 12/31/24 furosemide 40 mg tablet 40 mg PO DAILY 1 month #30 tabs 12/31/24 metoprolol succinate 25 mg tablet,extended release 24 hr 50 mg (2 x 25 mg) PO BID 30 days #0 tabs 12/31/24 sildenafil (pulm.hypertension) 20 mg tablet 40 mg (2 x 20 mg) PO LUNCH 30 days #0 tabs 12/31/24
[2024-12-31 17:28] VITALS: BP 138/94; PULSE 88; RESP 18; TEMP 36.7; O2SAT 96
== END 2024-12-31 17:45 | disposition home or self-care (01) | DRG 309 ==
LOC: ED 18:36 → PCU 18:49
PROVIDERS: Hospitalist; Admitting Provider Family Medicine; Emergency Provider Emergency Medicine; PCP Student in an Organized Health Care Education/Training Program; Visit Provider Internal Medicine
DX: I48.91 Unspecified atrial fibrillation (principal); I24.89 Other forms of acute ischemic heart disease; N13.8 Other obstructive and reflux uropathy; I27.20 Pulmonary hypertension, unspecified; N18.31 Chronic kidney disease, stage 3a; I12.9 Hypertensive chronic kidney disease with stage 1 through stage 4 chronic kidney disease, or unspecified chronic kidney disease; E66.812 Obesity, class 2; I25.10 Atherosclerotic heart disease of native coronary artery without angina pectoris; E78.5 Hyperlipidemia, unspecified; I44.7 Left bundle-branch block, unspecified; Z68.37 Body mass index [BMI] 37.0-37.9, adult; R79.89 Other specified abnormal findings of blood chemistry; Z79.01 Long term (current) use of 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; Z95.5 Presence of coronary angioplasty implant and graft; Z90.5 Acquired absence of kidney; Z95.0 Presence of cardiac pacemaker; Z79.82 Long term (current) use of aspirin; N40.1 Benign prostatic hyperplasia with lower urinary tract symptoms
CPT/HCPCS: 36415; 71045; 78452; 80048; 84484; 85025; 85027; 85379; 85610; 85730; 93005; 93017; 93306; 99285; A9500; A4216; J2785

== ENCOUNTER 2025-06-14 11:00 | Emergency (ER) | payer MEDICARE, OTHER, SELFPAY ==
[2025-06-14 11:01] VITALS: BP 146/84; PULSE 112; RESP 20; TEMP 36.6; O2SAT 95; BMI 36.9
--- NOTE | 2025-06-14 11:27 | ED.VIS.CHEST ---
HPI History of Present Illness Chief Complaint: Chest Pain Narrative Narrative: Pt is a 74-year-old male who is presenting to the ER today with chief complaint of some mild chest tightness, shortness of breath, sinus congestion, and cough going on for the past 7 days. Patient stated he had a multitude of test done at the [facility] with pulmonary function testing done approximately 7 days ago, and patient feels like a lot of his symptoms are worsening at that time. Patient had a stress test and echocardiogram within the last year, 7 days ago patient was on the treadmill for 6 minutes. Patient is using DayQuil and NyQuil. Patient wears no oxygen at home. He is not diabetic. Patient went to the urgent care secondary to sinus congestion and patient was sent to the ER for evaluation. REVIEW OF SYSTEMS: Unless otherwise stated in this report the patient's positive and negative responses for review of systems for constitutional, eyes, ENT, cardiovascular, respiratory, gastrointestinal, neurological, , musculoskeletal, and integument systems and related systems to the presenting problem are either stated in the history of present illness or were not pertinent or were negative for the symptoms and/or complaints related to the presenting medical problem. Nurse's notes and vital signs reviewed. The patient is not hypoxic. Vital signs reviewed and patient is not hypoxic. General: The patient appears well and in no apparent distress. Patient is resting comfortably on cart. Not toxic, lethargic, or listless. Skin: Warm, dry, no pallor noted. There is no rash noted. Head: Normocephalic, atraumatic; no tenderness to palpation of bilateral frontal maxillary sinus. Eye: Normal conjunctiva, no drainage, EOMI. PERRL. Ears, Nose, Mouth, and Throat: oral mucosa is moist. Nares patent. Mouth without vesicles. Cardiovascular: Regular Rate and Rhythm, no murmurs, gallops, or rubs Respiratory: Patient is in no distress, no accessory muscle use, lungs are clear to auscultation, no wheezing, rales or rhonchi. No crackles at bilateral bases. Back: non-tender, no CVA tenderness bilaterally to percussion. NO CTLS midline or paraspinal tenderness to palpation. GI: Soft, no tenderness to palpation, no masses appreciated. No rebound, guarding, or rigidity noted. Musculoskeletal: The patient has full range of motion of all extremities and joints with no difficulty. Patient has no motor, no sensory deficits. Neurological: A&O x4, normal speech, no focal neurological deficits. Psychiatric: Cooperative [facility] Medical History (Updated 06/14/25 @ 15:[address] Kameron Wilkins, DO) Atrial fibrillation Pulmonary embolism Blood clot in leg Coronary stent patent Pacemaker Cancer of right kidney A-fib Home Medications ?Medication ?Instructions ?Recorded ?Last Taken ?Type apixaban 5 mg tablet (Eliquis) 5 mg PO BID 12/29/24 12/29/24 History aspirin 81 mg tablet,delayed 81 mg PO QHS 12/29/24 12/28/24 History release (Adult Aspirin Regimen) atorvastatin 40 mg tablet 40 mg PO QHS 12/29/24 12/28/24 History bupropion HCl 150 mg 24 hr tablet, 300 mg PO QHS 12/29/24 12/28/24 History extended release calcium carbonate 600 mg PO BID 12/29/24 12/29/24 History cholecalciferol (vitamin D3) 50 50 mcg PO BID 12/29/24 12/29/24 History mcg (2,000 unit) tablet (D3 DOTS) escitalopram oxalate 20 mg tablet 20 mg PO QHS 12/29/24 12/28/24 History finasteride 5 mg tablet 5 mg PO DAILY 12/29/24 12/29/24 History olopatadine 0.1 % eye drops (Eye 1 drp EACH EYE DAILY 12/29/24 Unknown History Allergy Itch-Redness Relief) diltiazem HCl 180 mg 180 mg PO BREAKFAST 30 days #0 caps 12/31/24 Unknown Rx capsule,extended release 24 hr furosemide 40 mg tablet 40 mg PO DAILY 1 month #30 tabs 12/31/24 Unknown Rx metoprolol succinate 25 mg 50 mg (2 x 25 mg) PO BID 30 days 12/31/24 12/29/24 Rx tablet,extended release 24 hr #0 tabs sildenafil (pulm.hypertension) 20 40 mg (2 x 20 mg) PO LUNCH 30 days 12/31/24 Unknown Rx mg tablet #0 tabs azithromycin 250 mg tablet 250 mg PO DAILY #6 TABLETS 06/14/25 Unknown Rx cdsfzxtobksocjp-elqicdvnayyuspp-LT 5 ml PO Q6H PRN sinus 06/14/25 Unknown Rx 2 mg-30 mg-10 mg/5 mL oral syrup symptoms/cough #100 mL (Bromfed DM) prednisone 20 mg tablet 40 mg (2 x 20 mg) PO DAILY #6 06/14/25 Unknown Rx TABLETS Allergy/AdvReac Type Severity Reaction Status Date / Time No Known Allergies Allergy Verified 06/14/25 11:01 Family History Other Cancer Diabetes Surgical History S/P insertion of IVC (inferior vena caval) filter History of right nephrectomy Hx of tonsillectomy Hx of cholecystectomy Social History housing: house Smoking Status: Never smoker EXAM Physical Exam Const Vital Signs: 06/14/25 11:01 06/14/25 12:00 06/14/25 12:12 Temperature 97.9 F Temperature Source Temporal Pulse Rate 112 H 95 Respiratory Rate 20 H 23 H Blood Pressure 146/84 H 131/87 H Blood Pressure Mean 104 101 Pulse Ox 95 Oxygen Delivery Method Room Air Room Air 06/14/25 13:00 06/14/25 14:00 06/14/25 15:10 Temperature 98.2 F Temperature Source Pulse Rate 86 84 83 Respiratory Rate 17 22 H 18 Blood Pressure 129/93 H 138/88 H 135/74 H Blood Pressure Mean 105 104 94 Pulse Ox 95 98 Oxygen Delivery Method Room Air Room Air MDM MDM MDM Narrative Medical decision making narrative: Patient seen and examined: IV, x-ray, IV fluids, labs, EKG patient knows about A-fib and left bundle branch block that are chronic. Differential diagnosis includes but is not limited to: Sinusitis, electrolyte abnormality, dehydration, ACS, pneumonia, pulmonary edema Relevant laboratory interpretation: Patient has no elevated white blood cells patient's BUN and creatinine are 28/1.73., BNP 17,000 I have no old. Been atretic peptide to compare to. Radiological studies: Chest x-ray shows some mild cephalization, no effusion, no pneumonia. Reevaluation: Patient feels better after IV fluids. Patient will be discharged to use noej-qui-zmfebog medications. Education done at bedside and a discharge paper. Secondary to elevated BNP with no comparison and radiologist read chest x-ray is vascular congestion, patient will double his dose of Lasix for 3 days. Patient is then to follow-up with PCP for further recommendations. No questions at discharge. Social barriers to healthcare: There are no food insecurities, there is no issue with transportation, there are no insurance barriers Patient will be started on the antibiotic prophylactically secondary to having symptoms for 7 days of sinus congestion. Patient will be put on a short course of steroid, and add Flonase to DayQuil NyQuil that he is already doing. 1729 it was noted that Z-Meir was not submitted for the patient. Patient knew we were going to do a short course of steroids and antibiotic. Z-Meir was submitted at this time. Lab Data Attestation: I reviewed the patient's lab results. Labs: Laboratory Results - last 24 hr 06/14/25 11:40 WBC 9.9 RBC 5.02 Hgb 14.9 Hct 44.8 MCV 89.2 MCH 29.7 MCHC 33.3 RDW Std Deviation 47.8 H RDW Coeff of Liss 14.6 Plt Count 143 L MPV 9.6 Immature Gran % (Auto) 0.500 Neut % (Auto) 83.1 H Lymph % (Auto) 5.4 L [place] % (Auto) 10.4 H Eos % (Auto) 0.3 Baso % (Auto) 0.3 Absolute Neuts (auto) 8.2 H Absolute Lymphs (auto) 0.53 L Nucleated RBC % 0 Sodium 135 Potassium 4.2 Chloride 101 Carbon Dioxide 21.0 Anion Gap 12 BUN 28 H Creatinine 1.73 H Estim Creat Clear Calc 47.93 L Est GFR (MDRD) Non-Af 41 L BUN/Creatinine Ratio 15.9 Glucose 170 H Calcium 8.7 Magnesium 2.0 Troponin T High [place]ens 17 [place] [address] H Radiography Diagnostic Testing: Clinical Impression(s) from Imaging Studies Chest X-Ray 06/14/25 11:28 IMPRESSION: Borderline cardiomegaly. Vascular congestion. Reading Location: [place] [id number] EKG Initial EKG: Attestation: I personally reviewed and interpreted this EKG as follows: (EKG interpretation. Left bundle branch block noted, baseline irregular irregular rhythm at 99 beats minute. QTc of 467. Nonspecific ST changes. ST depression in lateral leads. Will compare to old EKG) Comments: Comparing EKG to December 29, 2024, patient had A-fib and left bundle branch block at that time as well Discharge Plan Triage Chief Complaint: Chest Pain ED Provider: Kameron Wilkins Dx/Rx/DC Orders Clinical Impression: Sinus congestion, Dyspnea Instructions: Pulmonary Edema, Sinus Problems Dx, ED Dyspnea Prescriptions: New prednisone 20 mg tablet 40 mg PO DAILY Qty: 6 0RF imodgsrigyssanj-ffyzrmuwi-QI [Bromfed DM] 2-30-10 mg/5 mL syrup 5 ml PO Q6H PRN (Reason: sinus symptoms/cough) Qty: 100 0RF azithromycin 250 mg tablet 250 mg PO DAILY Qty: 6 0RF Rx Instructions: 2 tabs day 1, 1 tab days 2 through 5 No Action atorvastatin 40 mg tablet 40 mg PO QHS Eliquis 5 mg tablet 5 mg PO BID escitalopram oxalate 20 mg tablet 20 mg PO QHS calcium carbonate 600 mg calcium (1,500 mg) tablet 600 mg PO BID aspirin [Adult Aspirin Regimen] 81 mg tablet,delayed release (DR/EC) 81 mg PO QHS finasteride 5 mg tablet 5 mg PO DAILY bupropion HCl 150 mg tablet extended release 24 hr 300 mg PO QHS cholecalciferol (vitamin D3) [D3 DOTS] 50 mcg (2,000 unit) tablet 50 mcg PO BID olopatadine [Eye Allergy Itch-Redness Rlf] 0.1 % drops 1 drp EACH EYE DAILY Patient Comments: PT DOES IF HE REMEMBERS furosemide 40 mg tablet 40 mg PO DAILY 30 Days Qty: 30 2RF diltiazem HCl 180 mg capsule,extended release 24hr 180 mg PO BREAKFAST 30 Days Qty: 0 0RF metoprolol succinate 25 mg tablet extended release 24 hr 50 mg PO BID 30 Days Qty: 0 0RF sildenafil (pulm.hypertension) 20 mg tablet 40 mg PO LUNCH 30 Days Qty: 0 0RF Primary Care Provider: Flaquito Fernandes Referrals: Flaquito Fernandes DO [Primary Care Provider, Family Practice] Activity Restrictions/Additional Instructions: Take a second dose of your Furosemide today, tomorrow, and Tuesday; only for 3 days. Use kiny-lmz-lhxavbg DayQuil, NyQuil, Flonase daily. Use Mucinex DM as needed as well. Alternate Tylenol and either Motrin, Advil, or ibuprofen every 4 hours to help with fever, chills, myalgia, arthralgia or pain. Use zinc, vitamin D3, vitamin C to help build immune system and help fight infection as well. Increase fluids, Gatorade, or Powerade daily for the next 3 to 5 days. Print Language: Mongolian Disposition Disposition: Home, Self Care Discharge Date/Time: 06/14/25 15:29
--- NOTE | 2025-06-14 11:28 | RAD_ITS ---
PROCEDURE: CHEST 1 VIEW (PORTABLE) 06/14/2025 REASON FOR EXAM: CHEST PAIN TECHNIQUE: Frontal view of the chest. COMPARISON: Prior study dated December 29, 2024. FINDINGS: Hardware: EKG electrodes are seen. Left-sided dual-chamber pacemaker is visualized. Heart: Borderline cardiomegaly. Lungs: Mild degree of vascular congestion. Bones: Degenerative changes are identified within the thoracic spine. RAD/Chest 1 View (Portable) IMPRESSION: Borderline cardiomegaly. Vascular congestion. Reading Location: [place] [address]
--- NOTE | 2025-06-14 11:28 | EKG12_ITS ---
Test Reason : CP Blood Pressure : */* mmHG Vent. Rate : 99 BPM Atrial Rate : * BPM P-R Int : * ms QRS Dur : 164 ms QT Int : 364 ms P-R-T Axes : * -9 119 degrees QTcB Int : 467 ms Atrial fibrillation Left bundle branch block Abnormal ECG Confirmed by MAMI CHIU, TIM ([id number]), photo editor AYDEN DUNCAN ([id number]) on 06/17/2025 9:17:03 AM Referred By: DAVION/LESTER Confirmed By: TMI BOLAÑOS MD
[2025-06-14 11:47] LABS: Hematocrit 44.8 % (40-54); Hemoglobin 14.9 g/dL (13.0-16.5); Immature Granulocytes Count 0.050 X10^3/uL (0.0-0.0); Mean Corp Hgb Conc 33.3 g/dL (32-36); Mean Corpuscular Volume 89.2 fL (80-94); Mean Platelet Vol. 9.6 fl (6.2-12.0); NRBC Flagged by Analyzer 0 % (0-5); POSITIVE DIFFERENTIAL YES; Platelet Count 143 K/mm3 (150-450); RBC Distribution Width CV 14.6 % (11.6-14.6); RBC Distribution Width SD 47.8 fl (35.1-43.9); Red Blood Count 5.02 M/mm3 (4.6-6.2); White Blood Count 9.9 K/mm3 (4.4-11.0)
[2025-06-14 11:49] LABS: Differential Indicated SCAN CRITERIA MET
[2025-06-14 12:00] VITALS: BP 131/87; PULSE 95; RESP 23
[2025-06-14] MEDS: 0.9% Normal Saline (1000mL) 1,000 ML 250 ML IV (12:23)
--- OUTSIDE RECORDS SUMMARY | 2025-06-14 12:33 | XMS RPT_ITS | CCD ---
Author Organization [facility] Care Team Providers Care Cutter Inspector Name Role Phone PAYTON HASTINGS DO Primary Care Physician [phone] Payton Hastings Primary Care Provider [phone] Flor GALLEGOS MD, Michael Primary Care Provider [phone] Flor GALLEGOS MD, Michael Primary Care Provider [phone] Flor GALLEGOS MD, Michael Primary Care Provider [phone] PAYTON HASTINGS DO Primary Care Physician [phone] Flor GALLEGOS MD, Michael Primary Care Provider [phone] Flor GALLEGOS DO, Michael Primary Care Provider [phone] SMITHA RAY IV Primary Care Unavailable DANIELLE FONSCEA Referring Unavailable SMITHA RAY IV Primary Care Unavailable DANIELLE FONSECA Referring Unavailable SMITHA RAY IV Primary Care Unavailable Flor GALLEGOS DO, Michael A Primary Care Provider SMITHA RAY DO Primary Care Physician [phone] SMITHA RAY DO Attending Unavailable PAYTON HASTINGS DO Primary Care Unavailable SMITHA RAY DO Primary Care Unavailable SMITHA RAY DO Attending Unavailable SMITHA RAY DO Primary Care Unavailable SMITHA RAY DO Attending Unavailable SMITHA RAY DO Primary Care Unavailable SMITHA RAY DO Attending Unavailable Flor GALLEGOS DO, Michael A Primary Care Provider SMITHA RAY DO Attending Unavailable SMITHA RAY DO Primary Care Unavailable Alex Castellano Attending Unavailable Danny Iqbal Admitting Unavailable Vandana, Jayme Consulting Unavailable Smitha Ray Primary Care Unavailable Danny Iqbal Consulting Unavailable Latrell Avery Consulting Unavailable Alex Castellano Consulting Unavailable Pilar Rogers Attending Unavailable Halko, Smitha Primary Care Unavailable Danny Iqbal Admitting Unavailable Alex Castellano Attending Unavailable Jayme Ross Consulting Unavailable Danny Iqbal Consulting Unavailable Latrell Avery Consulting Unavailable Latrell Avery Attending Unavailable Danny Iqbal Attending Unavailable HALKO IV, BUTCH Primary Care Unavailable KAMERON CONTRERAS Referring Unavailable HALKO IV, BUTCH Primary Care Unavailable HALKO IV, BUTCH Primary Care Unavailable HALKO IV, BUTCH Primary Care Unavailable HALKO IV, BUTCH Primary Care Unavailable HALKO IV, BUTCH Primary Care Unavailable DEENA WAGGONER Referring Unavailabl e HALKO IV, BUTCH Primary Care Unavailable PELINI, SMITHA Attending Unavailable HALKO IV, BUTCH Primary Care Unavailable AURE JAEGER Attending Unavailable HALKO IV, BUTCH Primary Care Unavailable JESENIA ARZATE Attending Unavailable NIHARIKA FRIAS Referring Unavailable HALKO IV, BUTCH Primary Care Unavailable HALKO IV, BUTCH Primary Care Unavailable DALI DILLON Attending Unavailable HALKO IV, BUTCH Primary Care Unavailable JESENIA ARZATE Referring Unavailable NAVEEN NINO Attending Unavailable HALKO IV, BUTCH Primary Care Unavailable SELF Referring Unavailable PELINI, SMITHA Referring Unavailable HALKO IV, BUTCH Primary Care Unavailable HALKO IV, BUTCH Primary Care Unavailable DANIEL-DEENA HIDALGO Attending Unavailabl e HALKO IV, BUTCH Primary Care Unavailable NAVEEN NINO Referring Unavailable DALI DILLON Attending Unavailable HALKO IV, BUTCH Primary Care Unavailable HALKO IV, BUTCH Primary Care Unavailable KIRIT VAZQUEZ Attending Unavailabl e PELINI, SMITHA Referring Unavailable HALKO IV, BUTCH Primary Care Unavailable HALKO IV, BUTCH Primary Care Unavailable HALKO IV, BUTCH Primary Care Unavailable HALKO IV, BUTCH Referring Unavailable HALKO IV, BUTCH Primary Care Unavailable HALI REARDON Admitting Unavailable ADALI KING Consulting Unavailabl e SHERRI WEATHERS Referring Unavailable SETH ALEXANDER Attending Unavailable HALKO IV, BUTCH Primary Care Unavailable FERMIN SANCHEZ Attending Unavailable HALKO IV, BUTCH Primary Care Unavailable PELINI, SMITHA Referring Unavailable HALKO IV, BUTCH Primary Care Unavailable DANIEL-ANNALISEDEENA KAPADIA Attending UnavailSMITHA Harman IV Primary Care Unavailable MIRIAN HORAN Attending Unavailable SMITHA RYA IV Primary Care Unavailable Allergies Allergy Classification Reported Allergen(s) Allergy Type Date of Onset Reaction(s) Facility (9 sources) Amoxicillin / Clavulanate; Translations: [amoxicillin-cla vulanate] Drug Allergy Diarrhea - Adult [facility] Work Phone: (9 sources) DULoxetine; Translations: [duloxetine] Drug Allergy Fatigue [facility] Work Phone: (9 sources) gabapentin; Translations: [gabapentin] Drug Allergy Drowsy (finding) [facility] Work Phone: (9 sources) PARoxetine; Translations: [paroxetine] Drug Allergy Impotence (disorder) [facility] Work Phone: Medications Current Medications Medication Drug Class(es) Dates Sig (Normalized) Sig (Original) acetaminophen 500 mg oral tablet (6 sources) Start: 07-15-2022 take 1 dose by mouth every six hours as needed acetaminophen Dose : 500 mg =, Oral, q6hr, PRN, 0 Refill(s) Start Date: 07/15/22 Status: Ordered amLODIPine 2.5 mg oral tablet (1 source) Dihydropyridine Calcium Channel Lilly Start: 09-28-2023 End: 12-27-2023 amLODIPine 2.5 mg oral tablet Dose : 2.5 mg = 1 tab(s), Oral, qDay, # 90 tab(s), 0 Refill(s), Pharmacy: [id number], 177, cm, 09/21/23 8:14:00 EST, Height, kg, 09/28/23 10:20:00 EST, Dosing Weight Start Date: 09/28/23 Stop Date: 12/27/23 Status: Ordered amoxicillin 875 mg / clavulanate 125 mg oral tablet (1 source) Penicillin-class Antibacterial Start: 06-29-2022 End: 07-02-2022 take 1 tablet by mouth twice daily amoxicillin-clavul anic acid (AUGMENTIN) 875-125 mg per tablet Take 1 tablet by mouth twice daily for 3 days. 6 tablet 0 06/29/2022 07/02/2022 Active Comment on above: Take 1 tablet by ivy th twice daily for 3 days. apixaban 5 mg oral tablet (20 sources) Factor Xa Inhibitor Start: 11-15-2023 take 1 tablet by mouth twice daily ELIQUIS 5 mg tab(s) Take 5 mg by mouth two times a day. 11/15/2023 Active aspirin 81 mg delayed release oral tablet (20 sources) Platelet Aggregation Inhibitor, Nonsteroidal Anti-inflammatory Drug Start: 10-11-2019 take 1 tablet by mouth once daily aspirin, enteric coated (ECOTRIN LOW STRENGTH) 81 mg EC tablet Take 1 tablet by mouth once daily. 10/11/2019 Active Comment on above: Take 1 tablet by ivy th once daily. atorvastatin 40 mg oral tablet (20 sources) HMG-CoA Reductase Inhibitor Start: 08-09-2022 End: 01-07-2024 atorvastatin 40 mg oral tablet Dose : 40 mg = 1 tab(s), Oral, qDay, # 90 tab(s), 3 Refill(s), Pharmacy: [id number], 180, cm, 01/12/23 13:01:00 EDT, Height, kg, 01/12/23 13:01:00 EDT, Dosing Weight Start Date: 01/12/23 Stop Date: 01/07/24 Status: Ordered Start: 06-24-2021 atorvastatin 8 0 mg oral tablet Dose : 40 mg = 0.5 tab(s), Oral, qDay, # 90 tab(s), 3 Refill(s), Pharmacy: [facility]/pharmacy #[id number], 178, cm, 06/24/21 9:34:00 EDT, Height, kg, 06/24/21 9:34:00 EDT, Dosing Weight Start Date: 06/24/21 Status: Ordered Start: 10-11-2019 End: 01-14-2025 take 0.5 tablet by mouth once daily atorvastatin (LIPITOR) 80 mg tablet Take 0.5 tablets by mouth once daily. 90 tablet 3 10/11/2019 01/14/2025 Discontinued Comment on above: Take 0.5 tablets by mouth once daily. Take 40 mg by mouth once daily. benzonatate 100 mg oral capsule (1 source) Non-narcotic Antitussive Start: 5 End: 5 take 1 capsule by mouth every eight hours as needed benzonatate (TESSALON PERLE) 100 mg capsule Take 1 capsule by mouth three times a day as needed for cough for up to 7 days. 21 capsule 08/31/2024 09/07/2024 Active Blood Glucose Test Machine (9 sources) Start: 2 Blood Glucose Test Machine See Instructions, Dispense 1 glucometer, UAD once daily to test blood sugar; dx E11.9, # 1 EA, 0 Refill(s), Pharmacy: [facility]/pharmacy #[id number], Diabetes, 180, cm, 01/27/22 11:05:00 EDT, Height, 116.8, kg, 05/12/22 16:44:00 EDT, Dosing Weight Start Date: 06/15/22 Status: Ordered Start: 11-19-2020 Blood Glucose Test Machine See Instructions, Dispense 1 glucometer, UAD once daily to test blood sugar, # 1 EA, 0 Refill(s), [id number] Diabetes, 178, cm, 11/19/20 10:01:00 EDT, Height, 120.6, kg, 11/19/20 10:01:00 EDT, Dosing Weight Start Date: 11/19/20 Status: Ordered 24 hr buPROPion hydrochloride 150 mg extended release oral tablet (20 sources) Aminoketone Start: 11-15-2023 buPROPion XL ( WELLBUTRIN XL) 150 mg 24 hr tablet two times a day. 11/15/2023 Active Start: 11-15-2023 buPROPion XL ( WELLBUTRIN XL) 150 mg 24 hr tablet Start: 09-28-2023 End: 12-27-2023 take 1 tablet by mouth every hour, then take 2 tablets by mouth every twenty-four hours buPROPion 150 mg/24 hours (XL) oral tablet, extended release Dose : 300 mg = 2 tab(s), Oral, q24h, # 180 tab(s), 0 Refill(s), Pharmacy: [id number], 177, cm, 09/21/23 8:14:00 EST, Height, kg, 09/28/23 10:20:00 EST, Dosing Weight Start Date: 09/28/23 Stop Date: 12/27/23 Status: Ordered Start: 08-15-2023 take 1 tablet by ivy th every hour, then take 1 tablet by mouth every twenty-four hours buPROPion 150 mg/24 hours (XL) oral tablet, extended release Dose : 150 mg = 1 tab(s), Oral, q24h, # 30 tab(s), 0 Refill(s), Pharmacy: [facility], 177.8, cm, 07/27/23 10:06:00 EST, Height, kg, 07/27/23 10:06:00 EST, Dosing Weight Start Date: 08/15/23 Status: Ordered calcium carbonate 1500 mg or al tablet (20 sources) Start: 06-08-2023 End: 01-23-2024 calcium (as carbonate) 600 m g oral tablet Dose : 600 mg = 1 tab(s), Oral, BIDM, # 180 tab(s), 1 Refill(s), Pharmacy: [facility], 177.8, cm, 07/27/23 10:06:00 EST, Height, kg, 07/27/23 10:06:00 EST, Dosing Weight Start Date: 07/27/23 Stop Date: 01/23/24 Status: Ordered Start: 06-08-2023 End: 09-06-2023 take 1 tablet by mouth twice daily calcium carbonate (CALTRATE) 600 mg calcium (1,500 mg) tab Take 600 mg by mouth two times a day. 06/08/2023 Active Comment on above: Take 600 mg by mouth . cholecalciferol 0.1 mg oral tablet (20 sources) Vitamin D Start: 06-08-2023 cholecalciferol 100 mcg (4000 intl units) oral tablet Dose : 100 mcg = 1 tab(s), Oral, qDay, # 90 tab(s), 1 Refill(s), Pharmacy: [facility], 177.8, cm, 06/08/23 10:11:00 EDT, Height, kg, 06/08/23 10:11:00 EDT, Dosing Weight Start Date: 06/08/23 Status: Ordered take 1 tablet by mouth twice tiffany ly cholecalciferol (VITAMIN D3) 50 mcg (2,000 unit) tablet Take 2,000 Units by mouth twice daily. Active take 2 tablets by mouth twice da devorah cholecalciferol (VITAMIN D3) 1,000 unit tab tablet Take 2,000 Units by mouth twice daily. 0 Suspended Comment on above: Take 2,000 Units by mouth twice daily. doxycycline hyclate 100 mg oral tablet (1 source) Tetracycline-class Drug Start: 5 End: 5 take 1 tablet by mouth twice daily doxycycline (VIBRA-TABS) 100 mg tablet Take 1 tablet by mouth two times a day for 5 days. 10 tablet 08/31/2024 09/05/2024 Active 0.8 ml enoxaparin sodium 150 mg/ml prefilled syringe (20 sources) Low Molecular Weight Heparin Start: 3 End: 3 enoxaparin (LOVENOX) 120 mg/0.8 mL injection Inject 111 mg subcutaneously every 12 hours for 10 days. Stop Coumadin 5 days prior to surgery. Start the Lovenox the next day, 4 days prior to surgery. Inject lovenox every 12 hours. Last injection of Lovenox will be the night before surgery. 16 mL 0 08/04/2023 08/14/2023 Active Start: 11-30-2022 End: 12-10-2022 inject 0.7 mL by subcutaneous injection every twelve hours enoxaparin (LOVENOX) 120 mg/0.8 mL injection Inject 0.7 mL subcutaneously every 12 hours for 10 days. 16 mL 1 11/30/2022 12/10/2022 Start: 06-29-2022 End: 07-31-2022 inject 0.8 mL by subcutaneous injection twice daily enoxaparin (LOVENOX) 120 mg/0.8 mL injection Inject 0.8 mL subcutaneously twice daily. 48 mL 1 06/29/2022 07/31/2022 Discontinued (Course of therapy completed) End: 08-01-2023 enoxaparin sodium (LOVENOX SUBCUTANEOUS) Inject 10 mg subcutaneously. 0 08/01/2023 Discontinued enoxaparin sodiu m (LOVENOX SUBCUTANEOUS) Inject 10 mg subcutaneously. 0 Active inject 120 mg by sub cutaneous injection twice daily enoxaparin sodium (LOVENOX SUBCUTANEOUS) Inject 120 mg subcutaneously twice daily. 0 Suspended inject 120 mg by sub cutaneous injection twice daily enoxaparin sodium (LOVENOX SUBCUTANEOUS) Inject 120 mg subcutaneously twice daily. 0 Active enoxaparin sodiu m (LOVENOX SUBCUTANEOUS) Inject subcutaneously. 0 Active Comment on above: Inject subcutaneousl y. Inject 120 mg subcut aneously twice daily. Inject 0.8 mL subcut aneously twice daily. Inject 0.7 mL subcut aneously every 12 hours for 10 days. Inject 10 mg subcuta neously. Inject 111 mg subcut aneously every 12 hours for 10 days. Stop Coumadin 5 days prior to surgery. Start the Lovenox the next day, 4 days prior to surgery. Inject lovenox every 12 hours. Last injection of Lovenox will be the night before surgery. escitalopram 20 mg oral tablet (20 sources) Serotonin Reuptake Inhibitor Start: 07-22-20 escitalopram 20 mg oral tablet Dose : 20 mg = 1 tab(s), Oral, Daily, # 90 tab(s), 3 Refill(s), Pharmacy: [facility], 177.8, cm, 07/27/23 10:06:00 EST, Height, kg, 07/27/23 10:06:00 EST, Dosing Weight Start Date: 07/27/23 Status: Ordered Comment on above: Take 20 mg by mouth once daily. finasteride 5 mg oral tablet (20 sources) 5-alpha Reductase Inhibitor Start: 10-23-19 End: 03-26-20 take 1 tablet by mouth once daily in the evening finasteride (PROSCAR) 5 mg tablet Take 5 mg by mouth every evening. 10/23/2021 Active Comment on above: Take 5 mg by mouth e very evening. fluticasone propionate 0.05 mg/actuat metered dose nasal spray (18 sources) Corticosteroid Start: 09-24-19 take 2 spray(s) by mouth once daily fluticasone (FLONASE) 50 mcg/actuation nasal spray Use 2 Sprays in each nostril once daily. Rinse mouth after use. 11.1 mL 09/24/2024 Active furosemide 20 mg oral tablet (20 sources) Loop Diuretic Start: 05-19-20 End: 03-26-20 furosemide 20 mg oral tablet Dose : 20 mg = 1 tab(s), Oral, qDay, # 90 tab(s), 1 Refill(s), Pharmacy: [id number], 177, cm, 09/21/23 8:14:00 EST, Height, kg, 09/28/23 10:20:00 EST, Dosing Weight Start Date: 09/28/23 Stop Date: 03/26/24 Status: Ordered Start: 07-15-2022 furosemide 20 mg oral tablet Dose : 20 mg = 1 tab(s), Oral, qDay, # 30 tab(s), 0 Refill(s) Start Date: 07/15/22 Status: Ordered take 1 tablet by ivy th once daily furosemide (LASIX) 40 mg tablet Take 40 mg by mouth once daily. Active Comment on above: Take 40 mg by mouth once daily. iv contrast (will be provided with radiology test) (10 sources) Start: 04-11-2025 iv contrast (will be provided with radiology test) Indications: Renal cell carcinoma of right kidney (HCC) , Malignant neoplasm of right kidney, except renal pelvis (HCC) , Stage 3 chronic kidney disease, unspecified whether stage 3a or 3b CKD (HCC) MRI Kidney Inject, intravenously, once for 1 dose. No IV access, insert saline lock prior to the beginning of sedation, infusion, injection of imaging exam. Discontinue saline lock post exam. If Pt. has a central line or IVAD, may access for administration according to line specific nursing protocol. Once exam is complete flush line and de-access according to line specific nursing protocol in the MR contrast administration guidelines link. 1 each 04/11/2025 Active Start: 04-11-2025 End: 04-11-2025 iv contrast (will be provide d with radiology test) Indications: Renal cell carcinoma of right kidney (HCC) MRI Kidney Inject, intravenously, once for 1 dose. No IV access, insert saline lock prior to the beginning of sedation, infusion, injection of imaging exam. Discontinue saline lock post exam. If Pt. has a central line or IVAD, may access for administration according to line specific nursing protocol. Once exam is complete flush line and de-access according to line specific nursing protocol in the MR contrast administration guidelines link. 1 each 04/11/2025 04/11/2025 Discontinued Start: 12-21-2022 End: 12-22-2022 iv contrast (will be provide d with radiology test) MRI ABDOMEN Inject, intravenously, once for 1 dose. No IV access, insert saline lock prior to the beginning of sedation, infusion, injection of imaging exam. Discontinue saline lock post exam. If Pt. has a central line or IVAD, may access for administration according to line specific nursing protocol. Once exam is complete flush line and de-access according to line specific nursing protocol in the MR contrast administration guidelines link. 1 Each 0 12/21/2022 12/22/2022 Active Start: 10-05-2022 End: 10-06-2022 iv contrast (will be provide d with radiology test) MRI ABDOMEN Inject, intravenously, once for 1 dose. No IV access, insert saline lock prior to the beginning of sedation, infusion, injection of imaging exam. Discontinue saline lock post exam. If Pt. has a central line or IVAD, may access for administration according to line specific nursing protocol. Once exam is complete flush line and de-access according to line specific nursing protocol in the MR contrast administration guidelines link. 1 Each 0 10/05/2022 10/06/2022 Active Comment on above: MRI ABDOMEN Inject, intravenously, once for 1 dose. No IV access, insert saline lock prior to the beginning of sedation, infusion, injection of imaging exam. Discontinue saline lock post exam. If Pt. has a central line or IVAD, may access for administration according to line specific nursing protocol. Once exam is complete flush line and de-access according to line specific nursing protocol in the MR contrast administration guidelines link. levoFLOXacin 500 mg oral tablet (1 source) Quinolone Antimicrobial Start: 2021 End: 2021 take 1.5 tablets by mouth once daily levoFLOXacin (LEVAQUIN) 500 mg tablet Take 1.5 tablets by mouth once daily for 3 days. 5 tablet 0 06/29/2022 07/02/2022 Active Comment on above: Take 1.5 tablets by mouth once daily for 3 days. methylPREDNISolone (1 source) Corticosteroid Start: 2024 End: 2024 methylPREDNISolone (MEDROL, ZHENG,) 4 mg Dose-Pack Follow dosing instructions, take with food. 21 tablet 09/24/2024 09/30/2024 Active 24 hr metoprolol succinate 25 mg extended release oral tablet (20 sources) beta-Adrenergic Lilly Start: 2023 take 1 tablet by mouth twice daily metoprolol succinate ER (TOPROL XL) 25 mg 24 hr tablet Take 50 mg by mouth two times a day. 10/12/2023 Active Start: 10-12-2023 metoprolol suc cinate ER (TOPROL XL) 25 mg 24 hr tablet 10/12/2023 Active Start: 03-28-2023 End: 09-24-2023 Metoprolol Succinate ER 25 m g oral TABLET extended release Dose : 25 mg = 1 tab(s), Oral, qDay, takes 2 tablets of 25mg, # 90 tab(s), 1 Refill(s), Pharmacy: [id number], 177.8, cm, 03/28/23 9:56:00 EDT, Height, kg, 03/28/23 9:56:00 EDT, Dosing Weight Start Date: 03/28/23 Stop Date: 09/24/23 Status: Ordered Start: 10-05-2022 End: 08-01-2023 metoprolol succinate ER (TOP ROL XL) 25 mg 24 hr tablet TAKE 2 TABLETS ONE TIME DAILY 180 tablet 3 03/29/2023 08/01/2023 Discontinued Start: 07-15-2022 Metoprolol Suc cinate ER 25 mg oral TABLET extended release Dose : 50 mg = 2 tab(s), Oral, qDay, takes 2 tablets of 25mg, 0 Refill(s) Start Date: 07/15/22 Status: Ordered Start: 06-04-2022 End: 10-05-2022 take 1 tablet by mouth once daily metoprolol succinate ER (TOPROL XL) 50 mg 24 hr tablet Take 1 tablet by mouth once daily. 30 tablet 0 08/13/2022 10/05/2022 Discontinued Comment on above: Take 1.5 tablets by mouth once daily. Take 1 tablet by ivy th once daily. Take 2 tablets by mo uth once daily. TAKE 2 TABLETS ONE T ROGER DAILY nebivolol 5 mg oral tablet (20 sources) Start: 12-24-19 Bystolic 5 mg oral tablet Dose : 5 mg = 1 tab(s), Oral, Daily, # 90 tab(s), 3 Refill(s), Pharmacy: [facility], 178, cm, 12/23/21 9:40:00 EDT, Height, kg, 12/23/21 9:40:00 EDT, Dosing Weight Start Date: 12/23/21 Status: Ordered Comment on above: Take 5 mg by mouth o nce daily. OLANZapine 5 mg oral tablet (12 sources) Atypical Antipsychotic Start: 01-11-20 take 1 tablet by mouth once daily at bedtime OLANZapine (ZYPREXA) 5 mg tablet Take 5 mg by mouth daily at bedtime. 01/10/2025 Active perflutren lipid microspheres 1.3 mL in NaCl (PF) 0.9% 10 mL injection (DEFINITY) (20 sources) Start: 02-02-20 End: 02-09-20 perflutren lipid microspheres 1.3 mL in NaCl (PF) 0.9% 10 mL injection (DEFINITY) Start: 06-23-2023 End: 09-21-2024 perflutren lipid microsphere s 1.3 mL in NaCl (PF) 0.9% 10 mL injection (DEFINITY) sildenafil 20 mg oral tablet (20 sources) Phosphodiesterase 5 Inhibitor Start: 05-23-2019 End: 01-23-2024 take 1 tablet by mouth twice daily sildenafil (REVATIO) 20 mg tablet Take 1 tablet by mouth two times a day. 60 tablet 5 06/08/2023 Active Comment on above: TAKE 1 TABLET TWICE DAILY Take 20 mg by mouth twice daily. Take 1 tablet by ivy th two times a day. silodosin 4 mg oral capsule (11 sources) alpha-Adrenergic Lilly Start: 05-23-2019 silodosin 4 mg oral capsule Dose : 4 mg = 1 cap(s), Oral, Daily, # 90 cap(s), 0 Refill(s) Start Date: 05/23/19 Status: Ordered Comment on above: Take 4 mg by mouth d aily with dinner. 125 ml sodium chloride 9 mg/ml prefilled syringe (20 sources) Start: 02-01-2025 End: 02-08-2025 sodium chloride 0.9 % (flush) 10 mL (BD POSIFLUSH) Start: 06-23-2023 End: 09-21-2024 sodium chloride 0.9 % (flush ) 10 mL (BD POSIFLUSH) Vitamin D3 2000 intl units (50 mcg) oral capsule (6 sources) Start: 06-10-2020 Vitamin D3 200 0 intl units (50 mcg) oral capsule Dose : 2,000 International_Unit = 1 cap(s), Oral, BID, 0 Refill(s) Start Date: 06/10/20 Status: Ordered warfarin sodium 3 mg oral tablet (20 sources) Vitamin K Antagonist Start: 10-07-2023 warfarin 3 mg oral tablet Dose : 3 mg = 1 tab(s), Oral, qDay, take as directed, per office instructions upon each INR check, # 90 tab(s), 0 Refill(s), Pharmacy: [id number], 177, cm, 09/21/23 8:14:00 EST, Height, kg, 09/28/23 10:20:00 EST, Dosing Weight Start Date: 10/07/23 Status: Ordered Start: 09-16-2022 End: 09-11-2023 warfarin 2 mg oral tablet Do se : 2 mg = 1 tab(s), Oral, qDay, take as directed by physician office based on INR results, # 90 tab(s), 3 Refill(s), Pharmacy: [id number], 179.5, cm, 07/15/22 10:29:00 EST, Height Start Date: 09/16/22 Stop Date: 09/11/23 Status: Ordered Start: 06-29-2022 End: 12-03-2024 take 1 tablet by mouth once daily warfarin (COUMADIN) 5 mg tablet Take 1 tablet by mouth once daily. 30 tablet 06/29/2022 12/03/2024 Discontinued (Changing Therapy/Dosage Form) Start: 01-26-2022 warfarin 2 mg oral tablet See Instructions, Take 1 tab PO on 4 days of the week as directed. Please cancel all other 2 mg warfarin rxs., # 48 tab(s), 3 Refill(s), Pharmacy: [facility]/pharmacy #[id number], 178, cm, 01/14/22 12:57:00 EDT, Height, kg, 01/14/22 12:57:00 EDT, Dosing Weight Start Date: 01/26/22 Status: Ordered Start: 11-23-2021 warfarin 2 mg oral tablet See Instructions, Take 1 tab PO on Mon, Wed, nd Fri., # 36 tab(s), 1 Refill(s), Pharmacy: [facility], 178, cm, 06/24/21 9:34:00 EDT, Height, kg, 06/24/21 9:34:00 EDT, Dosing Weight Start Date: 11/23/21 Status: Ordered Start: 09-29-2021 warfarin 3 mg oral tablet See Instructions, 1 tab(s) Oral on Sun, Tues, Thur, and Sat., # 50 tab(s), 1 Refill(s), Pharmacy: [facility]/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 Take 2 mg T, TH, SAT, SUN, --3 mg on M, W, F 25 tablet 0 10/15/2020 06/09/2022 Discontinued Comment on above: Take 1 tablet by ivy th once daily. Take 2 mg T, TH, SAT, SUN, --3 mg on M, W, F Take 1 tablet by ivy th once daily. Take 2 mg by mouth d aily as directed. 2 MG EVERY DAY EXCEPT FOR TUESDAY Take 2 mg by mouth d aily as directed. 2 MG EVERy Tuesday, Tuesday, Tuesday and tuesday Completed/Discontinued Medications Medication Drug Class(es) Dates Sig (Normalized) Sig (Original) acetaminophen 300 mg / HYDROcodone bitartrate 5 mg oral tablet (8 sources) Opioid Agonist Start: 01-14-2022 take 1 tablet by mouth every six hours as needed for pain HYDROcodone-Acetami nophen 5-300 mg tab TAKE 1 TABLET BY MOUTH EVERY 6 HOURS NEEDED NEEDED FOR PAIN FOR 3 DAYS 0 01/14/2022 Active Comment on above: TAKE 1 TABLET BY IVY TH EVERY 6 HOURS NEEDED NEEDED FOR PAIN FOR 3 DAYS baclofen 10 mg oral tablet (4 sources) gamma-Aminobutyric Acid-ergic Agonist Start: 03-28-2023 End: 04-04-2023 baclofen 10 mg oral tablet Dose : 10 mg = 1 tab(s), Oral, TID, # 21 tab(s), 0 Refill(s), Pharmacy: [id number], 177.8, cm, 03/28/23 9:56:00 EDT, Height, kg, 03/28/23 9:56:00 EDT, Dosing Weight Start Date: 03/28/23 Stop Date: 04/04/23 Status: Ordered 24 hr dilTIAZem hydrochloride 180 mg extended release oral capsule (20 sources) Calcium Channel Illly Start: 08-01-2023 End: 01-04-2025 take 1 capsule by mouth once daily dilTIAZem CD (CARDIZEM CD, CARTIA XT) 180 mg 24 hr capsule Take 1 capsule by mouth once daily. 30 capsule 11 08/01/2023 01/04/2025 Discontinued (Clinical Decision) Comment on above: Take 1 capsule by mo [facility] once daily. insulin glargine 100 unt/ml injectable solution (12 sources) Insulin Analog inject 10 [IU] by subcutaneous injection once daily in the morning insulin glargine (LANTUS) 100 unit/mL injection Inject 10 Units subcutaneously every morning. 0 Active Comment on above: Inject 10 Units subc utaneously every morning. perflutren lipid microspheres 1.1 mg/mL 1.3 mL injection (DEFINITY) (1 source) Start: 02-26-2025 End: 02-26-2025 1.3 mL, INTRAVENOUS, ONCE, 1 dose, On Tue02/26/25 at 1130, Perflutren must be activated prior to administration. Once activated: 1. Diluted IV Bolus: Dilute 1.3 mL of Definity with 8.7 mL of preservative-free saline 2. Undiluted IV Bolus: Administer undiluted Definity followed by a preservative-free 10 mL saline flush. polyethylene glycol 3350 97601 mg powder for oral solution (3 sources) Osmotic Laxative Start: 06-05-2022 End: 07-05-2022 polyethylene glycol 3350 (MIRALAX, GLYCOLAX) 17 gram packet Take 1 Packet by mouth once daily. Dissolve dose in 4 - 8 ounces of liquid and take as directed. 30 Packet 0 06/05/2022 06/17/2022 Discontinued (Other) Comment on above: [facility] Dissolve dose in 4 - 8 ounces of liquid and take as directed. salmon calcitonin 200 unt/actuat nasal spray (20 sources) Calcitonin Start: 06-08-2023 End: 09-06-2023 calcitonin 200 unit(s)/inh nasal spray Dose = 1 spray(s), Nasal, qDay, EA = one bottle Use 1 spray in 1 nostril daily (alternate nostrils), # 3 EA, 0 Refill(s), Pharmacy: [facility], 177.8, cm, 06/08/23 10:11:00 EDT, Height, kg, 06/08/23 10:11:00 EDT, Dosing Weight Start Date: 06/08/23 Stop Date: 09/06/23 Status: Ordered Start: 06-08-2023 End: 09-06-2023 calcitonin,salmon, (MIACALCI N) 200 unit/actuation nasal spray Inhale as instructed. 06/08/2023 Active Comment on above: Inhale as instructed . sennosides, halfway 8.6 mg oral tablet (3 sources) Start: 2 End: 2 take 1 tablet by mouth twice daily senna (SENOKOT) 8.6 mg tab Take 1 tablet by mouth twice daily. 60 tablet 0 06/04/2022 06/17/2022 Discontinued (Other) Comment on above: Take 1 tablet by ivy twice daily. tamsulosin hydrochloride 0.4 mg oral capsule (20 sources) alpha-Adrenergic Lilly Start: 2 take 0.8 mg by mouth once daily tamsulosin (FLOMAX) 0.4 mg Take 0.8 mg by mouth once daily. 0 02/03/2022 Active Start: 01-14-2022 tamsulosin 0.4 mg oral capsule Dose : 0.4 mg = 1 cap(s), Oral, qDay, # 30 cap(s), 0 Refill(s), Pharmacy: [facility]/pharmacy #[id number], 178, cm, 01/14/22 12:57:00 EDT, Height Start Date: 01/14/22 Status: Ordered Comment on above: Take 0.8 mg by mouth once daily. Problems Active Problems Problem Classification Problem Date Documented Da te Episodic/Chronic Acute and unspecified renal failure (1 source) Acute kidney failure, unspecified; Translations: [Acute renal failure, unspecified acute renal failure type] Onset: 06-03-2025 Episodic Administrative/social admission (1 source) Patient encounter status; Translations: [Counseling, unspecified] Episodic Aortic and peripheral arterial embolism or thrombosis (20 sources) Vascular disorder; Translations: [Embolism and thrombosis of unspecified artery] Onset: 01-17-2009 01-17-2009 Chronic Cancer of kidney and renal pelvis (20 sources) Renal cell carcinoma; Translations: [Malignant neoplasm of unspecified kidney, except renal pelvis] Onset: 04-02-2025 Chronic Cancer of kidney and renal pelvis (2 sources) History of malignant neoplasm of retroperitoneum; Translations: [Personal history of other malignant neoplasm of kidney] Onset: 03-07-2025 03-07-2025 Episodic Cardiac dysrhythmias (20 sources) Persistent atrial fibrillation; Translations: [Other persistent atrial fibrillation] Onset: 07-08-2017 02-04-2021 Chronic Chronic kidney disease (20 sources) Chronic kidney disease stage 3B ; Translations: [Chronic kidney disease stage 3] Onset: 06-30-2022 09-23-2022 Chronic Chronic kidney disease (2 sources) Chronic kidney disease; Translations: [Stage 3 chronic kidney disease, unspecified whether stage 3a or 3b CKD (HCC)] Onset: 08-02-2023 Coagulation and hemorrhagic disorders (20 sources) Blood coagulation disorder; Translations: [Coagulation defect, unspecified] Onset: 01-17-2009 01-17-2009 Chronic Conduction disorders (20 sources) Conduction disorder of the heart; Translations: [Left bundle branch block] Onset: 07-08-2017 11-21-2019 Chronic Congestive heart failure; nonhypertensive (20 sources) Chronic congestive heart failure; Translations: [Heart failure, unspecified] Onset: 01-03-2025 01-03-2025 Chronic Coronary atherosclerosis and other heart disease (20 sources) Lipid-rich atherosclerosis of coronary artery; Translations: [Atherosclerotic heart disease of [place] coronary artery without angina pectoris] Onset: 10-11-2019 10-11-2019 Chronic Deficiency and other anemia (6 sources) Anemia due to blood loss 07-15-2022 Chronic Deficiency and other anemia (2 sources) Anemia; Translations: [Anemia, unspecified] 06-13-2022 Episodic Diabetes mellitus with complications (10 sources) Disorder of kidney due to diabetes mellitus; Translations: [Peripheral vascular disorder due to diabetes mellitus] Onset: 06-06-2024 03-28-2023 Chronic Diabetes mellitus without complication (20 sources) Diabetes mellitus; Translations: [Type 2 diabetes mellitus without complications] Onset: 06-20-2022 03-25-2021 Chronic Diseases of white blood cells (20 sources) Leukocytosis; Translations: [Elevated white blood cell count, unspecified] Onset: 06-07-2022 06-07-2022 Chronic Disorders of lipid metabolism (20 sources) Mixed hyperlipidemia; Translations: [Hyperlipidemia] Onset: 07-08-2017 05-23-2019 Chronic Essential hypertension (20 sources) Essential hypertension; Translations: [Hypertensive disorder] Onset: 06-20-2022 05-23-2019 Chronic Genitourinary symptoms and ill-defined conditions (1 source) Unspecified symptoms and signs involving the genitourinary system; Translations: [Unspecified symptoms and signs involving the genitourinary system] Onset: 04-02-2025 Episodic Hyperplasia of prostate (9 sources) Benign prostatic hypertrophy with outflow obstruction 05-23-2019 Chronic Hypertension with complications and secondary hypertension (5 sources) Hypertensive renal disease; Translations: [Hypertension secondary to endocrine disorders] Onset: 06-06-2024 03-28-2023 Chronic Immunizations and screening for infectious disease (2 sources) Antibody studies abnormal; Translations: [Raised antibody titer] Episodic Lymphadenitis (4 sources) Lymphadenopathy; Translations: [Generalized enlarged lymph nodes] Onset: 03-07-2025 03-07-2025 Episodic Mood disorders (20 sources) Depressive disorder; Translations: [Depressive disorder] Onset: 06-20-2022 05-23-2019 Chronic Neoplasms of unspecified nature or uncertain behavior (7 sources) Neoplastic disease of uncertain behavior; Translations: [Neoplasm of uncertain behavior, unspecified] Onset: 09-23-2022 09-23-2022 Episodic Nutritional deficiencies (10 sources) Vitamin D deficiency; Translations: [Vitamin D deficiency, unspecified] Onset: 06-06-2024 05-23-2019 Chronic Other aftercare (8 sources) Post-discharge follow-up; Translations: [Encounter for follow-up examination after completed treatment for conditions other than malignant neoplasm] 07-15-2022 Episodic Other aftercare (2 sources) Surgical follow-up 08-19-2023 Episodic Other aftercare (1 source) Encounter for follow-up examination after completed treatment for conditions other than malignant neoplasm; Translations: [Hospital discharge follow-up] Onset: 01-03-2025 Episodic Other and ill-defined heart disease (20 sources) Thrombus of left atrium; Translations: [Intracardiac thrombosis, not elsewhere classified] Onset: 02-04-2021 02-04-2021 Chronic Other bone disease and musculoskeletal deformities (9 sources) Somatic dysfunction of lumbar region 06-10-2020 Episodic Other bone disease and musculoskeletal deformities (9 sources) Somatic dysfunction of rib 06-10-2020 Episodic Other bone disease and musculoskeletal deformities (9 sources) Somatic dysfunction of sacral region 06-10-2020 Episodic Other bone disease and musculoskeletal deformities (9 sources) Somatic dysfunction of thoracic region 06-26-2020 Episodic Other bone disease and musculoskeletal deformities (5 sources) Somatic dysfunction of pelvic region 09-23-2022 Episodic Other bone disease and musculoskeletal deformities (4 sources) Somatic dysfunction of abdominal region 02-10-2023 Episodic Other bone disease and musculoskeletal deformities (4 sources) Somatic dysfunction of lower limb 03-02-2023 Episodic Other circulatory disease (7 sources) Inferior vena cava filter in situ; Translations: [Presence of other vascular implants and grafts] 09-23-2022 Chronic Other circulatory disease (2 sources) Retroperitoneal hemorrhage; Translations: [Hemorrhage, not elsewhere classified] 06-13-2022 Episodic Other circulatory disease (1 source) Carotid bruit 09-28-2023 Episodic Other connective tissue disease (4 sources) Spasm 01-12-2023 Episodic Other connective tissue disease (1 source) Pain in left lower limb; Translations: [Pain in left leg] 08-19-2023 Episodic Other diseases of kidney and ureters (20 sources) Renal mass; Translations: [Other specified disorders of kidney and ureter] Onset: 06-04-2022 Chronic Other diseases of kidney and ureters (2 sources) Disorder of kidney and/or ureter; Translations: [Other specified disorders of kidney and ureter] Chronic Other diseases of kidney and ureters (1 source) Other specified disorders of kidney and ureter; Translations: [Other specified disorders of kidney and ureter] Onset: 11-10-2022 Chronic Other diseases of kidney and ureters (2 sources) Acquired renal cystic disease; Translations: [Cyst of kidney, acquired] Episodic Other diseases of veins and lymphatics (5 sources) Varicocele 09-23-2022 Episodic Other fractures (3 sources) Compression fracture of lumbar spine 06-08-2023 Episodic Other gastrointestinal disorders (6 sources) Adrenal mass 01-27-2022 Episodic Other gastrointestinal disorders (2 sources) Finding of abdominopelvic segment of trunk; Translations: [Intra-abdominal and pelvic swelling, mass and lump, unspecified site] Episodic Other gastrointestinal disorders (1 source) Intra-abdominal and pelvic swelling, mass and lump, unspecified site; Translations: [Intra-abdominal and pelvic swelling, mass and lump, unspecified site] Onset: 10-27-2022 Episodic Other injuries and conditions due to external causes (2 sources) Injury of lower leg; Translations: [Other specified injuries of unspecified lower leg, initial encounter] 06-05-2024 Episodic Other lower respiratory disease (9 sources) Cough 04-06-2021 Episodic Other lower respiratory disease (3 sources) Cough; Translations: [Acute cough] 08-31-2024 Episodic Other lower respiratory disease (2 sources) Multiple nodules of lung; Translations: [Other nonspecific abnormal finding of lung field] 03-07-2025 Episodic Other lower respiratory disease (2 sources) Other nonspecific abnormal finding of lung field; Translations: [Lung nodules] Onset: 03-07-2025 Episodic Other lower respiratory disease (1 source) Shortness of breath; Translations: [Shortness of breath] Onset: 03-07-2025 Episodic Other nutritional; endocrine; and metabolic disorders (20 sources) Severe obesity; Translations: [Morbid (severe) obesity due to excess calories] Onset: 09-01-2017 09-01-2017 Chronic Other nutritional; endocrine; and metabolic disorders (20 sources) Body mass index 40+ - severely obese; Translations: [Morbid (severe) obesity due to excess calories] Onset: 06-27-2022 06-27-2022 Chronic Other nutritional; endocrine; and metabolic disorders (6 sources) Body mass index 30+ - obesity 07-15-2022 Chronic Other nutritional; endocrine; and metabolic disorders (1 source) Obesity 07-15-2022 Chronic Other nutritional; endocrine; and metabolic disorders (5 sources) Morbid obesity 09-23-2022 Chronic Other nutritional; endocrine; and metabolic disorders (1 source) Obesity, unspecified; Translations: [Obesity, diabetes, and hypertension syndrome (HCC) (HCC)] Onset: 06-06-2024 Chronic Other screening for suspected conditions (not mental disorders or infectious disease) (6 sources) Imaging of thorax abnormal 01-27-2022 Chronic Other screening for suspected conditions (not mental disorders or infectious disease) (6 sources) Hormone increase; Translations: [Other specified abnormal findings of blood chemistry] Onset: 11-28-2024 06-08-2023 Episodic Other upper respiratory infections (1 source) Chronic sinusitis; Translations: [Chronic sinusitis, unspecified] 08-31-2024 Chronic Other upper respiratory infections (3 sources) Viral upper respiratory tract infection; Translations: [Acute upper respiratory infection] 07-27-2023 Episodic Saadia-; endo-; and myocarditis; cardiomyopathy (except that caused by tuberculosis or sexually transmitted disease) (12 sources) Dilated cardiomyopathy; Translations: [Dilated cardiomyopathy] Onset: 02-04-2025 02-04-2025 Chronic Peripheral and visceral atherosclerosis (20 sources) Atherosclerosis of aorta; Translations: [Peripheral vascular disease] Onset: 08-02-2023 06-03-2023 Chronic Pneumonia (except that caused by tuberculosis or sexually transmitted disease) (2 sources) Infective pneumonia; Translations: [Pneumonia, unspecified organism] Episodic Pulmonary heart disease (20 sources) Pulmonary hypertension; Translations: [Pulmonary hypertension, unspecified] Onset: 05-25-2018 05-23-2019 Chronic Residual codes; unclassified (2 sources) Obstructive sleep apnea syndrome; Translations: [Obstructive sleep apnea (adult) (pediatric)] Chronic Residual codes; unclassified (3 sources) Upper airway resistance syndrome 07-27-2023 Chronic Residual codes; unclassified (1 source) Confusional state; Translations: [Disorientation, unspecified] Episodic Residual codes; unclassified (5 sources) Screening due 09-23-2022 Episodic Residual codes; unclassified (3 sources) Immunization due 06-08-2023 Episodic Residual codes; unclassified (1 source) Memory impairment 10-01-2023 Episodic Residual codes; unclassified (1 source) Acquired absence of kidney; Translations: [Acquired absence of kidney] Onset: 04-02-2025 Episodic Screening and history of mental health and substance abuse codes (5 sources) Tobacco use and exposure - finding 09-23-2022 Chronic Spondylosis; intervertebral disc disorders; other back problems (13 sources) Backache; Translations: [Low back pain] 06-10-2020 Episodic Unclassified (20 sources) Patient encounter status 06-24-2021 Unclassified (6 sources) Anticoagulant effect 07-15-2022 Unclassified (6 sources) History of nephrectomy 07-15-2022 Unclassified (1 source) TESTICULAR PAIN Onset: 07-02-2022 Unclassified (3 sources) Other persistent atrial fibrillation; Translations: [Other persistent atrial fibrillation] Onset: 06-20-2022 Unclassified (1 source) Acute cough; Translations: [Acute cough] Onset: 08-31-2024 Unclassified (1 source) Established Patient Onset: 06-03-2025 Past or Other Problems Problem Classification Problem Date Documented Da te Episodic/Chronic Abdominal pain (20 sources) Flank pain; Translations: [Unspecified abdominal pain] Onset: 06-05-2022 06-05-2022 Episodic Acute posthemorrhagic anemia (20 sources) Acute posthemorrhagic anemia; Translations: [Acute posthemorrhagic anemia] Onset: 06-04-2022 06-06-2022 Episodic Cardiac dysrhythmias (20 sources) Bradycardia; Translations: [Bradycardia, unspecified] Onset: 07-23-2020 02-04-2021 Episodic Conditions associated with dizziness or vertigo (20 sources) Dizziness; Translations: [Dizziness and giddiness] Onset: 10-11-2019 10-11-2019 Episodic Coronary atherosclerosis and other heart disease (1 source) Presence of coronary angioplasty implant and graft; Translations: [History of heart artery stent] Onset: 01-04-2025 Episodic Crushing injury or internal injury (20 sources) Hematoma of kidney; Translations: [Minor contusion of right kidney, initial encounter] Onset: 06-04-2022 06-04-2022 Episodic Deficiency and other anemia (1 source) Anemia, unspecified; Translations: [Anemia, unspecified type] Onset: 06-06-2024 Episodic Malaise and fatigue (3 sources) Malaise and fatigue; Translations: [Other malaise] Onset: 11-28-2024 Episodic Nonspecific chest pain (20 sources) Chest pain; Translations: [Chest pain, unspecified] Onset: 07-08-2017 05-25-2018 Episodic Nutritional deficiencies (1 source) Iron deficiency; Translations: [Iron deficiency] Onset: 11-28-2024 Episodic Other aftercare (20 sources) Long-term 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; Translations: [nursing home (current) use of 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] Onset: 10-11-2019 05-21-2020 Episodic Other aftercare (1 source) terminal superintendent (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) 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; Translations: [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] Onset: 01-04-2025 Episodic Other circulatory disease (1 source) Personal history of other diseases of the circulatory system; Translations: [History of CHF (congestive heart failure)] Onset: 02-01-2025 Episodic Other injuries and conditions due to external causes (20 sources) Hematoma; Translations: [Other injury of unspecified body region, initial encounter] Onset: 05-24-2022 05-24-2022 Episodic Other lower respiratory disease (20 sources) Dyspnea; Translations: [Shortness of breath] Onset: 09-01-2017 05-25-2018 Episodic Other lower respiratory disease (1 source) Dyspnea, unspecified; Translations: [Dyspnea, unspecified type] Onset: 02-01-2025 Episodic Other nervous system disorders (1 source) Paresthesia of skin; Translations: [Positive Phalen maneuver] Onset: 06-06-2024 Episodic Other nervous system disorders (1 source) Fasciculation; Translations: [Fasciculation] Onset: 06-06-2024 Episodic Other nutritional; endocrine; and metabolic disorders (20 sources) Weight gain; Translations: [Abnormal weight gain] Onset: 09-01-2017 09-01-2017 Episodic Other nutritional; endocrine; and metabolic disorders (20 sources) Weight increased; Translations: [Abnormal weight gain] Onset: 09-01-2017 09-01-2017 Episodic Phlebitis; thrombophlebitis and thromboembolism (20 sources) H/O: Deep vein thrombosis; Translations: [Personal history of other venous thrombosis and embolism] Onset: 09-01-2017 09-01-2017 Episodic Pulmonary heart disease (20 sources) H/O: pulmonary embolus; Translations: [Pulmonary embolism with pulmonary infarction] Onset: 01-17-2009 05-23-2019 Episodic Residual codes; unclassified (20 sources) Non-smoker; Translations: [Other specified health status] Onset: 09-01-2017 09-01-2017 Episodic Residual codes; unclassified (20 sources) Impaired exercise tolerance; Translations: [Other general symptoms and signs] Onset: 09-01-2017 09-01-2017 Episodic Residual codes; unclassified (20 sources) Other specified personal risk factors, not elsewhere classified; Translations: [Other specified personal history presenting hazards to health] Onset: 11-22-2019 02-04-2021 Episodic Shock (20 sources) Hemorrhagic shock; Translations: [Other shock] Onset: 06-04-2022 06-04-2022 Episodic Results Test Name Value Interpretation Reference Range Facility LUNG DIFFUSION CAPACITY (SLOAN O)on 06-07-2025 LUNG DIFFUSION CAPACITY (DLCO) [address] [address] Test Date: 2025-06-07 Pat Name: ALISA HAGAN Department: Room: Gender: Male Research Editor: : 1950 Requested By: Order Number: [id number] Reading MD: Arleth Murdock MD Interpretive Statements The patient was identified by name and date of . The patient did not use any respiratory medications prior to testing. The patient did not appear to understand spirometry instructions despite coaching and repeated attempts. Best test reported despite difficult testing session. Repeatability standards for lung volumes met. The two acceptable DLCO measurements obtained [were not] repeatable. IMPRESSION: Spirometry is normal. Elevated lung volumes (RV and/or RV/TLC) indicate air trapping. The diffusion capacity (uncorrected for hemoglobin) is normal. Electronically Signed On 06-07-2025 13:45:52 EDT by Arleth Murdock MD ID: [id number] Name: ALISA HAGAN Race: White Ht: 69.00 in Wt: 249.10 lbs Age: 74 Gender: Male : 1950 Dx: Pulmonary hypertension, unspecified Smoking Hx: Non-smoker Doctor: SMITHA SIDHU Test Date: 06/07/2025 Site: [facility] Tech: Jacinda Ramsay PRE-BRONCH POST-BRONCH Ophelia LLN Pred ULN %Pred ZScore Ophelia %Pred %Chg ZScore SPIROMETRY FVC 3.21 2.84 3.82 4.83 84 -1.01 FEV1 2.26 2.09 2.88 3.61 78 -1.30 FEV1/FVC 0.70 0.63 0.77 0.87 91 -0.80 FEFMax 6.40 5.58 7.84 10.09 81 -1.05 FEF50 2.22 1.65 3.78 5.90 58 -1.21 FIF50 4.04 FEF50/FIF50 0.55 90-100 FIVC 3.02 ZEI02-17 1.36 0.94 2.26 4.13 60 -1.04 ExpiredTime 10.97 TimeToFEFMax 0.12 CORONA 0.14 VolExtrap% 4 LUNG VOLUMES FRC(Pleth) 3.74 2.62 3.75 5.18 99 -0.02 ERV 0.24 1.27 18 RV(Pleth) 3.57 1.47 2.52 3.79 141 1.38 SVC 2.71 2.84 3.82 4.83 70 -1.87 IC 2.02 2.55 79 TLC(Pleth) 5.55 5.43 6.89 8.38 80 -1.51 RV/TLC(Pleth) 64 25 37 49 175 3.63 LUNG DIFFUSION DLCOunc 18.69 18.08 24.70 32.61 75 -1.48 DLCOStdPB 18.47 18.08 24.70 32.61 74 -1.54 VA 4.60 4.97 6.18 7.48 74 -2.18 Kco 4.07 2.97 4.02 5.18 101 0.07 Comments: The patient was identified by name and date of . The patient did not use any respiratory medications prior to testing. The patient did not appear to understand spirometry instructions despite coaching and repeated attempts. Best test reported despite difficult testing session. Repeatability standards for lung volumes met. The two acceptable DLCO measurements obtained [were not] repeatable. Normal [facility] LUNG VOLUMES 06-07-2025 LUNG VOLUMES [address] [address] Test Date: 2025-06-07 Pat Name: ALISA HAGAN Department: Room: Gender: Male Research Editor: : 1950 Requested By: Order Number: [id number] Reading MD: Arleth Murdock MD Interpretive Statements The patient was identified by name and date of . The patient did not use any respiratory medications prior to testing. The patient did not appear to understand spirometry instructions despite coaching and repeated attempts. Best test reported despite difficult testing session. Repeatability standards for lung volumes met. The two acceptable DLCO measurements obtained [were not] repeatable. IMPRESSION: Spirometry is normal. Elevated lung volumes (RV and/or RV/TLC) indicate air trapping. The diffusion capacity (uncorrected for hemoglobin) is normal. Electronically Signed On 06-07-2025 13:45:52 EDT by Arleth Murdock MD ID: [id number] Name: ALISA HAGAN Race: White Ht: 69.00 in Wt: 249.10 lbs Age: 74 Gender: Male : 1950 Dx: Pulmonary hypertension, unspecified Smoking Hx: Non-smoker Doctor: SMITHA SIDHU Test Date: 06/07/2025 Site: [facility] Tech: Jacinda Ramsay PRE-BRONCH POST-BRONCH Ophelia LLN Pred ULN %Pred ZScore Ophelia %Pred %Chg ZScore SPIROMETRY FVC 3.21 2.84 3.82 4.83 84 -1.01 FEV1 2.26 2.09 2.88 3.61 78 -1.30 FEV1/FVC 0.70 0.63 0.77 0.87 91 -0.80 FEFMax 6.40 5.58 7.84 10.09 81 -1.05 FEF50 2.22 1.65 3.78 5.90 58 -1.21 FIF50 4.04 FEF50/FIF50 0.55 90-100 FIVC 3.02 ZPR51-32 1.36 0.94 2.26 4.13 60 -1.04 ExpiredTime 10.97 TimeToFEFMax 0.12 CORONA 0.14 VolExtrap% 4 LUNG VOLUMES FRC(Pleth) 3.74 2.62 3.75 5.18 99 -0.02 ERV 0.24 1.27 18 RV(Pleth) 3.57 1.47 2.52 3.79 141 1.38 SVC 2.71 2.84 3.82 4.83 70 -1.87 IC 2.02 2.55 79 TLC(Pleth) 5.55 5.43 6.89 8.38 80 -1.51 RV/TLC(Pleth) 64 25 37 49 175 3.63 LUNG DIFFUSION DLCOunc 18.69 18.08 24.70 32.61 75 -1.48 DLCOStdPB 18.47 18.08 24.70 32.61 74 -1.54 VA 4.60 4.97 6.18 7.48 74 -2.18 Kco 4.07 2.97 4.02 5.18 101 0.07 Comments: The patient was identified by name and date of . The patient did not use any respiratory medications prior to testing. The patient did not appear to understand spirometry instructions despite coaching and repeated attempts. Best test reported despite difficult testing session. Repeatability standards for lung volumes met. The two acceptable DLCO measurements obtained [were not] repeatable. Normal [facility] SPIROMETRY WITH DILATOR IF O BSTRUCTEDon 06-07-2025 SPIROMETRY WITH DILATOR IF OBSTRUCTED [address] [address] Test Date: 2025-06-07 Pat Name: ALISA HAGAN Department: Room: Gender: Male Research Editor: : 1950 Requested By: Order Number: [id number] Reading MD: Arleth Murdock MD Interpretive Statements The patient was identified by name and date of . The patient did not use any respiratory medications prior to testing. The patient did not appear to understand spirometry instructions despite coaching and repeated attempts. Best test reported despite difficult testing session. Repeatability standards for lung volumes met. The two acceptable DLCO measurements obtained [were not] repeatable. IMPRESSION: Spirometry is normal. Elevated lung volumes (RV and/or RV/TLC) indicate air trapping. The diffusion capacity (uncorrected for hemoglobin) is normal. Electronically Signed On 06-07-2025 13:45:52 EDT by Arleth Murdock MD ID: [id number] Name: ALISA HAGAN Race: White Ht: 69.00 in Wt: 249.10 lbs Age: 74 Gender: Male : 1950 Dx: Pulmonary hypertension, unspecified Smoking Hx: Non-smoker Doctor: SMITHA SIDHU Test Date: 06/07/2025 Site: [facility] Tech: Jacinda Ramsay PRE-BRONCH POST-BRONCH Ophelia LLN Pred ULN %Pred ZScore Ophelia %Pred %Chg ZScore SPIROMETRY FVC 3.21 2.84 3.82 4.83 84 -1.01 FEV1 2.26 2.09 2.88 3.61 78 -1.30 FEV1/FVC 0.70 0.63 0.77 0.87 91 -0.80 FEFMax 6.40 5.58 7.84 10.09 81 -1.05 FEF50 2.22 1.65 3.78 5.90 58 -1.21 FIF50 4.04 FEF50/FIF50 0.55 90-100 FIVC 3.02 BYQ32-23 1.36 0.94 2.26 4.13 60 -1.04 ExpiredTime 10.97 TimeToFEFMax 0.12 CORONA 0.14 VolExtrap% 4 LUNG VOLUMES FRC(Pleth) 3.74 2.62 3.75 5.18 99 -0.02 ERV 0.24 1.27 18 RV(Pleth) 3.57 1.47 2.52 3.79 141 1.38 SVC 2.71 2.84 3.82 4.83 70 -1.87 IC 2.02 2.55 79 TLC(Pleth) 5.55 5.43 6.89 8.38 80 -1.51 RV/TLC(Pleth) 64 25 37 49 175 3.63 LUNG DIFFUSION DLCOunc 18.69 18.08 24.70 32.61 75 -1.48 DLCOStdPB 18.47 18.08 24.70 32.61 74 -1.54 VA 4.60 4.97 6.18 7.48 74 -2.18 Kco 4.07 2.97 4.02 5.18 101 0.07 Comments: The patient was identified by name and date of . The patient did not use any respiratory medications prior to testing. The patient did not appear to understand spirometry instructions despite coaching and repeated attempts. Best test reported despite difficult testing session. Repeatability standards for lung volumes met. The two acceptable DLCO measurements obtained [were not] repeatable. FVC_PRE (L) : 3.21 L FVC_PRED (L) : 3.82 L FVC_LLN (L) : 2.84 L FVC_ULN (L) : 4.83 L FEV1_PRE (L) : 2.26 L FEV1_PRED (L) : 2.88 L FEV1_LLN (L) : 2.09 L FEV1_ULN (L) : 3.61 L FEV1/FVC_PRE (%) : 70 % FEV1/FVC_PRED (%) : 77 % FEV1/FVC_LLN (%) : 63 % OUR11_OSW (L/S) : 4.75 L/S PKK85_ZIQ (L/S) : 0.41 L/S FQP44_ZJWO (L/S) : 0.59 L/S YZW43_FJH (L/S) : 0.21 L/S XDZ98_HWB (L/S) : 1.57 L/S KBD61-64%_PRE (L/S) : 1.36 L/S RXU44-92%_PRED (L/S) : 2.26 L/S CSV56-64%_LLN (L/S) : 0.94 L/S PEF_PRE (L/S) : 6.40 L/S PEFMAX_LLN (L/S) : 5.58 L/S PEFMAX_ULN (L/S) : 10.09 L/S VC BOX (L) : 2.71 L SVC_PRED (L) : 3.82 L/S SVC_LLN (L) : 2.84 L/S SVC_ULN (L/S) : 4.83 L/S IC BOX (L) : 2.02 L IC_PRED (L) : 2.55 L/S ERV BOX (L) : 0.24 L ERV_PREDICTED (L) : 1.27 L/S DLCO (ML/MIN/MMHG) : 18.69 ml/min/mmHg DLCO_PRED (ML/MIN/MMHG) : 24.70 ml/min/mmHg DLCO_LLN(ML/MIN/MMHG) : 18.08 ml/min/mmHg DLCO_ULN (ML/MIN/MMHG) : 32.61 ml/min/mmHg FET_PRE (S) : 10.97 S FRC BOX (L) : 3.74 L RV BOX (L) : 3.57 L RV_PLETH_PRED (L) : 2.52 L TLC BOX (L) : 5.55 L TLC_PLETH_PRED (L) : 6.89 L RV/TLC BOX (%) : 64 % RV_TLC_PLETH_PRED (%) : 37 % VA (L) : 4.60 L VA_PRD (L) : 6.18 L DLCO/VA (ML/MIN/MMHG/L) : 0.04 ml/min/mmHg/L DLCO_VA_PRED (L) : 0.04 ml/min/mmHg/L DLCOCOR_PRED (ML/MIN/MMHG) : 24.70 ml/min/mmHg Normal [facility] Basic metabolic 2000 panelon 06-03-2025 Anion gap [Moles/Vol] 11 mmol/L Normal 8-15 [facility] Comment on above: Order Comment: Speci men Type: BLOOD SPECIMEN Ordering Facility: [facility] Address: [address] [place] [address] Performed By: #### 3 4528-0, 76737-3 #### [facility] CLIA [id number] [address] [place] [address] [place] Calcium [Mass/Vol] 9.5 mg/dL Normal 8.5-10.2 [facility] Comment on above: Order Comment: Speci men Type: BLOOD SPECIMEN Ordering Facility: [facility] Address: [address] [place] [address] Performed By: #### 3 4528-0, 24240-1 #### [facility] CLIA [id number] [address] [place] [address] [place] Chloride [Moles/Vol] 100 mmol/L Normal 98-107 [facility] Comment on above: Order Comment: Speci men Type: BLOOD SPECIMEN Ordering Facility: [facility] Address: [address] [place] [address] Performed By: #### 3 4528-0, 53467-9 #### [facility] CLIA [id number] [address] [place] [address] [place] CO2 [Moles/Vol] 25 mmol/L Normal 22-30 [facility] Comment on above: Order Comment: Speci men Type: BLOOD SPECIMEN Ordering Facility: [facility] Address: [address] [place] [address] Performed By: #### 3 4528-0, 39612-6 #### [facility] CLIA [id number] [address] [place] Creatinine [Mass/Vol] 1.72 mg/dL High 0.73-1.22 [facility] Comment on above: Order Comment: Speci men Type: BLOOD SPECIMEN Ordering Facility: [facility] Address: [address] [place] [address] Performed By: #### 3 4528-0, 46380-5 #### [facility] CLIA [id number] [address] eGFRcr SerPlBld CKD-EPI 2020 42 mL/min/1.73m??? Low >=60 [facility] Comment on above: Order Comment: Speci men Type: BLOOD SPECIMEN Ordering Facility: [facility] Address: [address] [place] [address] Result Comment: Susi mated Glomerular Filtration Rate (eGFR) is calculated using the 2020 CKD-EPI creatinine equation. This equation utilizes serum creatinine, sex, and age as parameters. The creatinine assay has traceable calibration to isotope dilution-mass spectrometry. Refer to KDIGO guidelines for clinical interpretation. In patients with unstable renal function, e.g. those with acute kidney injury, the eGFR may not accurately reflect actual GFR. Performed By: #### 3 4528-0, 17259-0 #### [facility] CLIA [id number] [address] [place] Glucose [Mass/Vol] 166 mg/dL High 74-99 [facility] Comment on above: Order Comment: Speci men Type: BLOOD SPECIMEN Ordering Facility: [facility] Address: [address] [place] [address] Result Comment: The [place] Diabetes Association (ADA) provides guidance for cutoff values for fasting glucose and random glucose. The ADA defines fasting as no caloric intake for at least 8 hours. Fasting plasma glucose results between 100 to 125 mg/dL indicate increased risk for diabetes (prediabetes). Fasting plasma glucose results greater than or equal to 126 mg/dL meet the criteria for diagnosis of diabetes. In the absence of unequivocal hyperglycemia, results should be confirmed by repeat testing. In a patient with classic symptoms of hyperglycemia or hyperglycemic crisis, random plasma glucose results greater than or equal to 200 mg/dL meet the criteria for diagnosis of diabetes. Reference: Standards of Medical Care in Diabetes 2016, [employer] Diabetes Association. Diabetes Care. 2016.39(Suppl 1). Performed By: #### 3 4528-0, 66379-5 #### [facility] CLIA [id number] [address] Potassium [Moles/Vol] 4.6 mmol/L Normal 3.7-5.1 [facility] Comment on above: Order Comment: Mynor rodas Type: BLOOD SPECIMEN Ordering Facility: [facility] Address: [address] [place] [address] Performed By: #### 3 4528-0, 70805-1 #### [facility] CLIA [id number] [address] Sodium [Moles/Vol] 136 mmol/L Normal 136-144 [facility] Comment on above: Order Comment: Mynor rodas Type: BLOOD SPECIMEN Ordering Facility: [facility] Address: [address] [place] [address] Performed By: #### 3 4528-0, 54269-7 #### [facility] CLIA [id number] [address] Urea nitrogen [Mass/Vol] 34 mg/dL High 9-24 [facility] Comment on above: Order Comment: Mynor rodas Type: BLOOD SPECIMEN Ordering Facility: [facility] Address: [address] [place] [address] Performed By: #### 3 4528-0, 73876-3 #### [facility] CLIA [id number] [address] CNOVSPon 06-03-2025 CNOVSP Visit (SP) Office (HEMAPOB) ----- ALISA HAGAN ([id number]) 1950 M Date Time Provider Department 06/03/25 10:15 AM DEENA WAGGONER HEMAPOB During your visit today, we recorded the following information about you: Temperature Pulse Blood pressure Weight 96.8 degrees 63/minute 123/80 113.4 kg Height 1.753 m Deena Waggoner MD 06/09/2025 8:02 PM Signed Alisa Hagan 1950 June 03, 2025 HPI: Alisa Hagan is a 74 year old male who presents as a hospital follow up. Mr. Hagan is a 74 year old male who presented to ER on 06/16/22 for dizziness and difficulty urinating. Of note he was recently admitted with subcapsular hematoma and retroperitoneal bleeding. Had 2 admissions for the same first 1 05/24/2022 to 06/04/2022, total of 11 days, the second 1 was from 06/05/2022 to 06/09/2022 for total duration of 4 days. He has a known history of right renal mass for which she was supposed to undergo robotic right laparoscopic nephrectomy on 06/03/2022. CT abdomen done during the first admission showed large right subcapsular hematoma with area of extravasation from right renal mass with hemorrhage extending inferiorly through the right retroperitoneum. His INR was 1.2 at presentation transferred to MICU for hemorrhagic shock. Had a hemoglobin drop from 13.4-7.6. Underwent IR embolization on 05/25/2022. Aspirin and Coumadin were restarted after consultation with urologist. He also underwent IVC placement on 05/20/2022 by vascular considering his history of multiple unprovoked DVTs and PEs. His first episode was about 25 years back treated with therapeutic anticoagulation and taken off anticoagulation after 6 months. He then had a recurrence in 2009 after being off of coumadin for a month per Dr. Zabala's notes. Urology was on consult during his second admission. His aspirin and warfarin was stopped at the time of second discharge. Per IR notes from 06/16/22: Right common femoral vein was accessed. Initial femoral venography showed occlusive thrombus of the infrarenal IVC and proximal right common femoral vein. Thrombectomy of right common femoral vein and IVC performed without incident. Bilateral pulmonary angiogram performed, showing filling defects in segmental pulmonary arteries bilaterally and central filling defect in the left main pulmonary artery. Left pulmonary artery mechanical thrombectomy performed without incident. Pre-thrombectomy pulmonary artery pressure was measured as a mean of 34mmHg. Post thrombectomy pulmonary artery pressure measured a mean of 33mmHg. On review of chart, pt was seen by [facility] - Dr. Zabala in . Workup at that time was negative for hypercoaguable state EXCEPT for equivocal IgM cardiolipin Abs. 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 He did not have PAI1 testing. Today he is resting in bed. He is currently on hep gtt. He was having his INR checked with PCP. Says that he was doing well on Coumadin and very stable INR. Says the pain in the R flank started in December and was bad enough that it brought him to his knees. Saw outside urology and ultimately says he was not happy with care so he switched. Pt is concerned this morning that urology resident told him he was not going back on blood thinners. In Afib on monitor. No active bleeding. Retrieval of IVC in 08/09/23. Having pain in the RLE. Rolled a lawnmower over it end of April. Did not have it checked out. police magistrate rolled on him while he was sitting on it. Has a very hard lump on the inner side of the RLE just below the knee with erythema on top of it. Bruising noted from the medial knee to the ankle. Some healing with yellow d/c. Was having issues with his INR. Got clots x 3 while trying to regulate it. Got a superficial clot (estephania) LLE; next one was swelling x 2 but never did US to confirm. Has been on Eliquis since October 2023. Not sleeping well. Has to get up to bathroom. Normally 1-2x/night. Sleeps midnight to 3:30-5am. Interval history: Today he is here for follow up. Doing well on Eliquis. Had cataract surgery on the R. Made it no better so will not be doing the L eye. Saw Cardio. Wants him to start a new medication (Entresto). Needs to see nephro first. Pacemaker doing well. May need defibrillator next year. Pt complains about SOB. He feel dizziness on standing and walking around. No falls. Last episode of dizziness happened at work. He was standing for several hours while working on work bench. Pt does not remember locking the knees when rising from the seated position during the episode of dizziness. Pt eats twice a day as he is trying to lose weight. Drinks 24 ounces glass of water 2 to 3 times a day. Cannot donate blood because he is on blood thinners. Pt says that the pacem (more content not included)... Normal [facility] CNOVon 05-09-2025 CNOV Office Visit (KISHOR BHANDARI) ----- YUNGALISA JADE ([id number]) 1950 M Date Time Provider Department 05/09/25 9:40 AM MIRIAN HORANHAGCARDPOB During your visit today, we recorded the following information about you: Pulse Blood pressure Weight 83/minute 132/76 113.9 kg Mirian Horan MD 05/09/2025 10:21 AM Signed [facility] V[facility] SECTION OF CARDIAC PACING and ELECTROPHYSIOLOGY OUTPATIENT VISIT DATE May 09, 2025 OUTPATIENT VISIT TYPE ESTABLISHED PRIMARY CARE PHYSICIAN: Smitha Ray IV [address] [place] [address] HISTORY OF PRESENT ILLNESS: 74-year-old male referred by Dr. Jain for bradycardia. Mr. Hagan has a history of coronary disease, had PCI/stent in 2019, pulmonary hypertension, at least a five-year history of persistent atrial fibrillation managed with rate control and anticoagulation. He never had a cardioversion. In addition he has history of obesity with BMI of 38, as well as left bundle-branch block. He also suffered pulmonary embolism at least 5 times, and is now on chronic anticoagulation. In fact several years ago he received an IVC filter that was subsequently removed. A recent event monitor demonstrated pauses prompting this referral. Mr. Hagan reports fatigue and exertional dyspnea. He denies chest pain, palpitation, or syncope. On occasion he does feel dizzy. He is also under significant stress due to his 's illness (recently diagnosed malignancy). Interval history: Mr. Hagan presents for follow-up. He continues experiencing fatigue and low energy, exertional dyspnea, and episodes of dizziness. He wore a 30 day event monitor demonstrating ongoing atrial fibrillation with most controlled ventricular rate, but pauses up to 3.8 seconds. He has left bundle-branch block, and his LVEF has been preserved. Interval history: Mr. Hagan presents for follow-up. After some initial hesitation he received a dual-chamber pacemaker and underwent DC cardioversion a few weeks later. Now he presents for follow-up. He reports feeling reasonably well. He denies palpitation, dizziness, and reports some improvement in his dyspnea and fatigue. He remains on oral anticoagulation with warfarin. He does report occasional epistaxis.ECG today shows sinus rhythm with left bundle branch block that was noted before. Interval history: In spring 2021 Mr. Hagan developed sustained atrial fibrillation, was supposed to undergo repeat cardioversion, had WENDY in December 2021 that demonstrated left atrial appendage thrombus. WENDY a month later showed thrombus resolution and sinus rhythm was restored. About a month later atrial fibrillation recurred. Shortly thereafter he developed renal cell malignancy, underwent nephrectomy, had bilateral pulmonary emboli, had IVC filter placed. He is suspected to have hypercoagulable state. Today he presents for follow-up. He is recovering after prolonged hospitalization, still short of breath and tired. He is ECG shows atrial fibrillation with ventricular rate of 95 bpm. The most recent pacemaker interrogation demonstrated atrial fibrillation for at least 6 months. He is on Coumadin now. In August 2022 he underwent WENDY guided DC cardioversion with atrial fibrillation recurrence less than a day later. Interval history: Mr. Hagan presents for an office visit. He reports ongoing fatigue, denies palpitation, chest comfort, dizziness. Remains on warfarin with no obvious bleeding complications. He is a scheduled for IVC filter removal in a few weeks. His ECG shows atrial fibrillation with ventricular rate of 80 bpm and LBBB. Pacemaker interrogations continue to show atrial fibrillation with most controlled ventricular rates, stable lead parameters, battery longevity of 9 years. He recently switched his metoprolol from morning dosing to the evening in hopes to decrease fatigue, but did not notice much difference. He is inquiring without medications can be used instead of metoprolol. He is also inquiring about catheter ablation for atrial fibrillation. DLCO on PFT in 2017 was mildly reduced. Echo in July 21 showed EF of 43% which is his baseline, mild LVH with IVS of 1.3, moderate left atrial enlargement. Interval history: Mr. Hagan presents for follow-up. He was admitted with heart failure in January 2025, echo showed EF 30%, LHC demonstrated severe diffuse disease in the mid RCA and nonobstructive disease in the left system. He is receiving beta-lilly. Entresto was not started because of renal dysfunction and suspected recurrence of renal malignancy. Apparently, recent imaging showed no recurrence. He reports feeling tired, denies palpitation, chest pain, or dizziness. He is able to walk up 1 flight of stairs comfor (more content not included)... [facility] Telephone (AGCARDPOB ) ----- ALISA HAGAN ([id number]) 1950 M Date Time Provider Department 05/09/25 MIRIAN HORANHAGCARDPOB During your visit today, we recorded the following information about you: Mirian Horan MD 05/09/2025 10:16 AM Signed Dali, you are seeing this gentleman with Dr. Jaeger. 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 Apparently, recent imaging and evaluation were benign. Can you look into getting him on GDMT? If his EF fails to improve after 3 months of optimal therapy he should get a SPICE ROOM WORKER-D. Thanks. Mirian. Dali Dillon APRN.CHERIE 05/09/2025 10:[address] Aung Blandon can you see who patient uses for nephrology( I know he sees Dr. Sanchez for urology) I just want to touch base. Before I initiate Entresto his last renal panel shows BUN/creatinine 10/28.02 with GFR of 34 Dali Dillon APRN.Janie Rebollar LPN 05/09/2025 10:35 AM Signed Spoke to Alisa Hagan and he does not have a Project Production Engineer. States everyone keeps saying they are going to refer him to one but he never gets a call to schedule. DENIS Cantrell Karla A, APRN.CNP 05/09/2025 11:26 AM Signed Correct , I now see a referral from March in his chart can someone please help with this referral. I need to see if they are ok with me putting him on Entresto Dali Dillon APRN.Parisa Youngblood RN 05/09/2025 1:13 PM Signed Called Alisa Hagan to relay that he was referred to Project Production Engineer Dr. Rosenthal by Dr. Sanchez in March. I provided Dr. Hines's office number and encouraged him to call for appt since he has not heard from them yet. He is agreeable to call. I let him know that Dali is asking for Nephrology guidance about starting a medication called Jh. He voiced understanding. JOANN Liu Karla A, APRN.CNP 05/09/2025 1:32 PM Signed Parisa thank you, would you be so kind to print that order and ask our staff to fax the referral also to Dr. Hines's office Dali Dillon APRN.Parisa Youngblood RN 05/09/2025 1:37 PM Signed Routed Nephrology referral via Epic/fax to Dr. Hines's office. Parisa Eldridge RN Allergies As of Date: 05/09/2025 (No Known Allergies) Date Reviewed: 05/09/2025 Reviewed by: Ramila Snyder MA - Fully Assessed Reason for Visit: Gifts Officer - Other [3602] Prescriptions as of 05/09/2025 - iv contrast (will be provided with radiology test) MRI Kidney Inject, intravenously, once for 1 dose. No IV access, insert saline lock prior to the beginning of sedation, infusion, injection of imaging exam. Discontinue saline lock post exam. If Pt. has a central line or IVAD, may access for administration according to line specific nursing protocol. Once exam is complete flush line and de-access according to line specific nursing protocol in the MR contrast administration guidelines link. - OLANZapine (ZYPREXA) 5 mg tablet Take 5 mg by mouth daily at bedtime. - fluticasone (FLONASE) 50 mcg/actuation nasal spray Use 2 Sprays in each nostril once daily. Rinse mouth after use. - ELIQUIS 5 mg tab(s) Take 5 mg by mouth two times a day. - buPROPion XL (WELLBUTRIN XL) 150 mg 24 hr tablet two times a day. - metoprolol succinate ER (TOPROL XL) 25 mg 24 hr tablet Take 50 mg by mouth two times a day. - calcium carbonate (CALTRATE) 600 mg calcium (1,500 mg) tab Take 600 mg by mouth two times a day. - calcitonin,salmon, (MIACALCIN) 200 unit/actuation nasal spray Inhale as instructed. - atorvastatin (LIPITOR) 40 mg tablet Take 40 mg by mouth once daily. - sildenafil (REVATIO) 20 mg tablet Take 1 tablet by mouth two times a day. - furosemide (LASIX) 40 mg tablet Take 40 mg by mouth once daily. - finasteride (PROSCAR) 5 mg tablet Take 5 mg by mouth every evening. - aspirin, enteric coated (ECOTRIN LOW STRENGTH) 81 mg EC tablet Take 1 tablet by mouth once daily. - cholecalciferol (VITAMIN D3) 50 mcg (2,000 unit) tablet Take 2,000 Units by mouth twice daily. - escitalopram 20 mg tablet Take 20 mg by mouth once daily. Problem List As Of Date 05/09/2025 Noted Resolved COAGULAT DEFECT NEC/NOS [D68.9] 01/17/2009 PULM EMBOLISM/INFARCT NOS [I26.99] 01/17/2009 VENOUS THROMBOSIS NOS [I74.9] 01/17/2009 Persistent atrial fibrillation (HCC) [I48.19] 07/08/2017 Chest pain [R07.9] 07/08/2017 HTN (hypertension) [I10] Hyperlipidemia [E78.5] 07/08/2017 LBBB (left bundle branch block) [I44.7] 07/08/2017 SOB (shortness of breath) [R06.02] 09/01/2017 Recurrent pulmonary emboli (HCC) [I26.99] 09/01/2017 History of DVT (deep vein thrombosis) [Z86.718] 09/01/2017 Non-smoker [Z78.9] (more content not included)... Normal [facility] ECG B/O W INTERP (MED OFFICE )on 05-09-2025 Atrial fibrillation with ventricular rate of 82 bpm, LBBB, QRS 160 ms, QTc 520. Normal axis. [facility] CNOVon 04-11-2025 CNOV Office Visit ([facility] ) ----- ALISA HAGAN ([id number]) 1950 M Date Time Provider Department 04/11/25 8:45 AM FERMIN SANCHEZ During your visit today, we recorded the following information about you: Pulse Blood pressure 84/minute 142/89 Fermin Sanchez MD 04/11/2025 9:06 AM Signed CHIEF COMPLAINT The patient is a 74-year-old male with a history of clear cell renal cell carcinoma, status post right nephrectomy in 2021, presenting for follow-up. HISTORY OF PRESENT ILLNESS: The patient reports experiencing dyspnea and is unsure which specialist to consult for this issue. He mentions having multiple specialists involved in his care. The patient underwent a right nephrectomy in 2021 for clear cell renal cell carcinoma, which was confined to the kidney with negative margins. Prior to the nephrectomy, he experienced spontaneous bleeding from the right kidney, which was initially managed with embolization but ultimately required surgical removal of the kidney. He does not recall the details of the bleeding episode but notes that the embolization didn't go well and did not resolve the issue. A biopsy of a soft tissue mass in the right renal fossa was performed on 12/13/2022, almost a year after the nephrectomy. The patient does not recall the details of this biopsy. Recent MRI on 04/02/2025 showed stable fat necrosis in the surgical bed and cystic and solid nodularity in the surgical bed unchanged in size. There is no evidence of recurrence of disease. A recent chest X-ray was performed, but a chest CT was ordered and not completed. Blood work in January showed decreased kidney function. The patient is not currently seeing a cable splicer helper. @SRIKANTH@ PSA (ng/mL) Date Value 04/11/2023 0.80 No results found for this basename: uglucpoc,ubilipoc,uketonp oc,usgpoc,uhbpoc,uphpoc,u propoc,uuropoc,unitpoc,uw bcpo- c,ucolpoc,uclarpoc ALLERGIES: ALLERGIES No Known Allergies MEDICATIONS: OLANZapine (ZYPREXA) 5 mg tablet Take 5 mg by mouth daily at bedtime. fluticasone (FLONASE) 50 mcg/actuation nasal spray Use 2 Sprays in each nostril once daily. Rinse mouth after use. ELIQUIS 5 mg tab(s) Take 5 mg by mouth two times a day. buPROPion XL (WELLBUTRIN XL) 150 mg 24 hr tablet two times a day. metoprolol succinate ER (TOPROL XL) 25 mg 24 hr tablet Take 50 mg by mouth two times a day. calcium carbonate (CALTRATE) 600 mg calcium (1,500 mg) tab Take 600 mg by mouth two times a day. atorvastatin (LIPITOR) 40 mg tablet Take 40 mg by mouth once daily. sildenafil (REVATIO) 20 mg tablet Take 1 tablet by mouth two times a day. furosemide (LASIX) 40 mg tablet Take 40 mg by mouth once daily. finasteride (PROSCAR) 5 mg tablet Take 5 mg by mouth every evening. aspirin, enteric coated (ECOTRIN LOW STRENGTH) 81 mg EC tablet Take 1 tablet by mouth once daily. cholecalciferol (VITAMIN D3) 50 mcg (2,000 unit) tablet Take 2,000 Units by mouth twice daily. escitalopram 20 mg tablet Take 20 mg by mouth once daily. iv contrast (will be provided with radiology test) MRI Kidney Inject, intravenously, once for 1 dose. No IV access, insert saline lock prior to the beginning of sedation, infusion, injection of imaging exam. Discontinue saline lock post exam. If Pt. has a central line or IVAD, may access for administration according to line specific nursing protocol. Once exam is complete flush line and de-access according to line specific nursing protocol in the MR contrast administration guidelines link. calcitonin,salmon, (MIACALCIN) 200 unit/actuation nasal spray Inhale as instructed. (Patient not taking: Reported on 04/11/2025) HISTORIES: PAST MEDICAL HISTORY Diagnosis Date A-fib (HCC) 07/08/2017 Acute on chronic systolic CHF (congestive heart failure) (HCC) Adjustment disorder with depressed mood Antiphospholipid antibody syndrome (HCC) Anxiety disorder Chest pain 07/08/2017 Class 2 severe obesity due to excess calories with serious comorbidity and body mass index (BMI) of 38.0 to 38.9 in adult (HCC) Coronary artery disease involving [place]kiak coronary artery of akiak heart without angina pectoris CTEPH (chronic thromboembolic pulmonary hypertension) (HCC) Depression including post Diabetes mellitus (HCC) Dilated cardiomyopathy (HCC) Dyspnea 07/08/2017 Esophageal reflux HTN (hypertension) Hx of fdc use of blood thinners on chronic Coumadin,managed by pcp Hyperlipidemia 07/08/2017 LBBB (left bundle branch block) 07/08/2017 Orthostasis Other acute embolism veins 11/2008 left leg Other pulmonary embolism and infarction 1998 Other specified disorder of gallbladder Persistent atrial fibrillation (HCC) Presence of IVC filter Pulmonary HTN (HCC) Recurrent pulmonary emboli (HCC) Renal mass, right S/p nephrectomy S/P Difficult robotic radical nephrectomy on the rig (more content not included)... Normal [facility] MRI KIDNEY WO/W IVCONon 08-0 MRI KIDNEY WO/W IVCON * * *Final Report* * * DATE OF EXAM: Apr 02 2025 3:19PM AKM [id number] - MRI KIDNEY WO/W IVCON / PROCEDURE REASON: C64.9, Z90.5, R39.9, R93.429 * * * * Physician Interpretation * * * * EXAMINATION: MRI ABDOMEN WITHOUT AND WITH IV CONTRAST CLINICAL HISTORY: C64.9, Z90.5, R39.9, R93.429 malignant neoplasm of an unspecified kidney, excluding the renal pelvis, Acquired absence of kidney, Unspecified symptoms and signs involving the genitourinary system , Abnormal radiologic findings on diagnostic imaging of unspecified kidney. TECHNIQUE: A renal MRI was performed on a 1.5 T MR system utilizing the torso phased-array coil. Pulse sequences included: axial precontrast T1 weighted in- and ouq-ju-jzzcy, axial and coronal HASTE, axial DWI with creation of ADC map; axial and coronal T1-VIBE before and after the administration of intravenous gadolinium chelate. Multiple post processing techniques were performed. MQ: [id number] Contrast: IV administration of 10 ml of Elucirem COMPARISON: Ultrasound of the kidneys 02/01/2025 prior. RESULT: Kidneys, adrenals and ureters: Right kidney: Nephrectomy. Stable area of fat necrosis in the inferior right perirenal space and again unchanged size and morphology of the 2.7 cm cystic lesion with thick enhancing wall, corresponding to the biopsy chronic inflammation of 11/2022. Right ureter: Single ureter. No hydronephrosis. 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 Left kidney: No mass. Stable renal cysts including: * Mildly increased conspicuity of the 1.3 cm circumscribed likely hemorrhagic cyst in the superior renal pole this in part related to respiratory motion. No significant changes since 05/2023. * Mild stable 2.2 cm cyst in the lateral interpolar region, intermediate T1 signal suggests hemorrhagic changes, no new nodularity. * Stable 2.1 cm likely hemorrhagic cyst in the anterior aspect of the inferior renal pole. * Stable 2.5 cortical cyst of the inferior left renal pole. Left renal vasculature - Arterial: single. No early branch (< 1cm). - Venous: conventional, anterior to the aorta. Left ureter: Single ureter. No hydronephrosis. Left adrenal: Normal, no nodules or thickening Retroperitoneal lymphadenopathy and IV involvement: Stable 0.6 cm infrarenal aortocaval lymph node. No new retroperitoneal lymphadenopathy. Abdomen: Liver: Normal morphology. No hepatic steatosis. No mass. Biliary: No bile duct dilation. Gallbladder is absent. Spleen: No mass. No splenomegaly. Pancreas: No mass or duct dilation. Stable 0.7 cm cystic lesion in the anterior uncinate (5, 10) and other scattered smaller cyst in the the distal pancreas. GI tract: No dilation or wall thickening. Appendix is normal. Diverticulosis in the visualized portions of the colon without evidence of acute inflammation. Lymph nodes (other): No abdominal or pelvic lymphadenopathy. Mesentery/Peritoneum: The previously noted 0.6 cm nodularity in the right paracolic gutter this less conspicuous, possibly resolution of the reactive lymph node. Retroperitoneum: No mass. Vasculature: - Abdominal aorta and iliac arteries: No aneurysm. - Celiac and SMA: Patent without stenosis. - Portal venous system (SMV, splenic vein, portal vein and branches): Patent. - Hepatic veins: Patent. - Other: None Bones/Soft Tissues: No acute osseous abnormalities. Lower thorax: No consolidation or pleural effusion. Susceptibility the related to the pacer lead in the right ventricle. Clutch Inspector (topogram) images: No additional findings. IMPRESSION: 1. Stable fat necrosis in the surgical bed and 2.7 cm cystic and solid nodularity in the right surgical bed, unchanged size and morphology compared to 10/2022. 2. No new retroperitoneal lymphadenopathy. 3. Other simple and hemorrhagic cysts in the left kidney are unchanged. Patient Accounts Specialist: [facility] Transcribe Date/Time: Apr 10 2025 11:42A Dictated by : ANTONIO DUNNE MD This examination was interpreted and the report reviewed and electronically signed by: ANTONIO DUNNE MD on Apr 10 2025 12:02PM EST [id number] [facility] ([facility]) ----- ALISA HAGAN ([id number]) 1950 M Date Time Provider Department 03/28/25 DALI DILLON During your visit today, we recorded the following information about you: Sierra Figueroa RN 03/28/2025 11:01 AM Signed Jhon Mcnally, as requested a remote was received today. Report is available for review in [facility]. Thanks, Dali Lopez APRN.ELECTRIC ARC WELDER 03/29/2025 7:05 AM Signed Please call patient, can you have him increase his metoprolol to 75 mg twice a day I had them do a remote device check it does show some high rates with his atrial fibrillation he has upcoming appointment next week with Dr. Horan. I wonder if this is not causing some of his reduction in his heart function keep his appointmentwith Dr. Horan as planned for next Tuesday. Dali Dillon APRN.Janie Rebollar LPN 03/29/2025 8:13 AM Signed I spoke to Alisa Hagan and informed them of aDli's response and recommendations. Patient voiced understanding will increase Metoprolol and follow up with as scheduled. Janie Tarango LPN Allergies As of Date: 03/28/2025 (No Known Allergies) Date Reviewed: 03/22/2025 Reviewed by: Zhanna Callejas MA - Fully Assessed Reason for Visit: Results [95] Prescriptions as of 03/29/2025 - OLANZapine (ZYPREXA) 5 mg tablet Take 5 mg by mouth daily at bedtime. - fluticasone (FLONASE) 50 mcg/actuation nasal spray Use 2 Sprays in each nostril once daily. Rinse mouth after use. - ELIQUIS 5 mg tab(s) Take 5 mg by mouth two times a day. - buPROPion XL (WELLBUTRIN XL) 150 mg 24 hr tablet two times a day. - metoprolol succinate ER (TOPROL XL) 25 mg 24 hr tablet Take 50 mg by mouth two times a day. - calcium carbonate (CALTRATE) 600 mg calcium (1,500 mg) tab Take 600 mg by mouth two times a day. - calcitonin,salmon, (MIACALCIN) 200 unit/actuation nasal spray Inhale as instructed. - atorvastatin (LIPITOR) 40 mg tablet Take 40 mg by mouth once daily. - sildenafil (REVATIO) 20 mg tablet Take 1 tablet by mouth two times a day. - furosemide (LASIX) 40 mg tablet Take 40 mg by mouth once daily. - finasteride (PROSCAR) 5 mg tablet Take 5 mg by mouth every evening. - aspirin, enteric coated (ECOTRIN LOW STRENGTH) 81 mg EC tablet Take 1 tablet by mouth once daily. - cholecalciferol (VITAMIN D3) 50 mcg (2,000 unit) tablet Take 2,000 Units by mouth twice daily. - escitalopram 20 mg tablet Take 20 mg by mouth once daily. Problem List As Of Date 03/28/2025 Noted Resolved COAGULAT DEFECT NEC/NOS [D68.9] 01/17/2009 PULM EMBOLISM/INFARCT NOS [I26.99] 01/17/2009 VENOUS THROMBOSIS NOS [I74.9] 01/17/2009 Persistent atrial fibrillation (HCC) [I48.19] 07/08/2017 Chest pain [R07.9] 07/08/2017 HTN (hypertension) [I10] Hyperlipidemia [E78.5] 07/08/2017 LBBB (left bundle branch block) [I44.7] 07/08/2017 SOB (shortness of breath) [R06.02] 09/01/2017 Recurrent pulmonary emboli (HCC) [I26.99] 09/01/2017 History of DVT (deep vein thrombosis) [Z86.718] 09/01/2017 Non-smoker [Z78.9] 09/01/2017 Class 2 severe obesity due to excess calories w*09/01/2017 Weight gain [R63.5] 09/01/2017 Decreased exercise tolerance [R68.89] 09/01/2017 Pulmonary HTN (HCC) [I27.20] 05/25/2018 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 S/P coronary artery stent placement [Z95.5] 10/11/2019 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/11/2019 Coronary artery disease involving akiak sandra*10/11/2019 Dizziness [R42] 10/11/2019 At risk for stroke [Z91.89] 11/22/2019 Status post placement of cardiac pacemaker [Z95*07/23/2020 Bradycardia [R00.1] 07/23/2020 Thrombus of left atrial appendage [I51.3] 02/04/2021 Preop cardiovascular exam [Z01.810] 04/30/2022 Hematoma [T14.8XXA] 05/24/2022 Right kidney mass [N28.89] 06/04/2022 Kidney hematoma [S37.019A] 06/04/2022 Acute blood loss anemia [D62] 06/04/2022 Hemorrhagic shock (HCC) [R57.8] 06/04/2022 Flank pain [R10.9] 06/05/2022 Leukocytosis [D72.829] 06/07/2022 Pulmonary embolism, bilateral (HCC) [I26.99] 06/16/2022 Depressive disorder [F32.A] 06/20/2022 Diabetes mellitus (HCC) [E11.9] 06/20/2022 Obesity, Class III, BMI >= 40 [E66.813] 06/27/2022 Preop testing [Z01.818] 08/02/2023 Antiphospholipid antibody syndrome (HCC) [D68.6*06/30/2022 Diagnosed: 08/02/2023 Atherosclerosis of aorta (HCC) [I70.0] 08/02/2023 Diagnosed: 08/02/2023 Presence of cardiac pacemaker [Z95.0] 06/30/2022 Diagnosed: 08/02/2023 Hypercoagulable state (HCC) [D68.59] 06/30/2022 Diagnosed: 08/02/2023 Stage 3 chronic kidney disease (HCC) [N18.30] 06/30/2022 Diagnosed: 08/02/2023 Acute on chronic systolic CHF (congestive heart*02/01/2025 Dilated cardiomyopathy (HCC) [I42.0] 02/04/2025 Encounter Status:Closed by JANIE TARANGO on 03/29/25 [facility] [employer] Tele[facility] ([facility]) ----- ALISA HAGAN Nhi ([id number]) 1950 M Date Time Provider Department 03/28/25 KELLEYEDNA ALASIE [facility] During your visit today, we recorded the following information about you: Deena De Jesus 03/28/2025 9:10 AM Signed The patient was discharged from [facility] 02-04-25 with an order to schedule with the [facility]. The Clinic reached out to the patient with no response. Therefore, this is considered a deferral of the Clinic's services at this time. Allergies As of Date: 03/28/2025 (No Known Allergies) Date Reviewed: 03/22/2025 Reviewed by: Zhanna Callejas MA - Fully Assessed Reason for Visit: Orders [731] Cmt: [facility] deferral Prescriptions as of 03/28/2025 - OLANZapine (ZYPREXA) 5 mg tablet Take 5 mg by mouth daily at bedtime. - fluticasone (FLONASE) 50 mcg/actuation nasal spray Use 2 Sprays in each nostril once daily. Rinse mouth after use. - ELIQUIS 5 mg tab(s) Take 5 mg by mouth two times a day. - buPROPion XL (WELLBUTRIN XL) 150 mg 24 hr tablet two times a day. - metoprolol succinate ER (TOPROL XL) 25 mg 24 hr tablet Take 50 mg by mouth two times a day. - calcium carbonate (CALTRATE) 600 mg calcium (1,500 mg) tab Take 600 mg by mouth two times a day. - calcitonin,salmon, (MIACALCIN) 200 unit/actuation nasal spray Inhale as instructed. - atorvastatin (LIPITOR) 40 mg tablet Take 40 mg by mouth once daily. - sildenafil (REVATIO) 20 mg tablet Take 1 tablet by mouth two times a day. - furosemide (LASIX) 40 mg tablet Take 40 mg by mouth once daily. - finasteride (PROSCAR) 5 mg tablet Take 5 mg by mouth every evening. - aspirin, enteric coated (ECOTRIN LOW STRENGTH) 81 mg EC tablet Take 1 tablet by mouth once daily. - cholecalciferol (VITAMIN D3) 50 mcg (2,000 unit) tablet Take 2,000 Units by mouth twice daily. - escitalopram 20 mg tablet Take 20 mg by mouth once daily. Problem List As Of Date 03/28/2025 Noted Resolved COAGULAT DEFECT NEC/NOS [D68.9] 01/17/2009 PULM EMBOLISM/INFARCT NOS [I26.99] 01/17/2009 VENOUS THROMBOSIS NOS [I74.9] 01/17/2009 Persistent atrial fibrillation (HCC) [I48.19] 07/08/2017 Chest pain [R07.9] 07/08/2017 HTN (hypertension) [I10] Hyperlipidemia [E78.5] 07/08/2017 LBBB (left bundle branch block) [I44.7] 07/08/2017 SOB (shortness of breath) [R06.02] 09/01/2017 Recurrent pulmonary emboli (HCC) [I26.99] 09/01/2017 History of DVT (deep vein thrombosis) [Z86.718] 09/01/2017 Non-smoker [Z78.9] 09/01/2017 Class 2 severe obesity due to excess calories w*09/01/2017 Weight gain [R63.5] 09/01/2017 Decreased exercise tolerance [R68.89] 09/01/2017 Pulmonary HTN (HCC) [I27.20] 05/25/2018 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 S/P coronary artery stent placement [Z95.5] 10/11/2019 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/11/2019 Coronary artery disease involving [place]kiak sandra*10/11/2019 Dizziness [R42] 10/11/2019 At risk for stroke [Z91.89] 11/22/2019 Status post placement of cardiac pacemaker [Z95*07/23/2020 Bradycardia [R00.1] 07/23/2020 Thrombus of left atrial appendage [I51.3] 02/04/2021 Preop cardiovascular exam [Z01.810] 04/30/2022 Hematoma [T14.8XXA] 05/24/2022 Right kidney mass [N28.89] 06/04/2022 Kidney hematoma [S37.019A] 06/04/2022 Acute blood loss anemia [D62] 06/04/2022 Hemorrhagic shock (HCC) [R57.8] 06/04/2022 Flank pain [R10.9] 06/05/2022 Leukocytosis [D72.829] 06/07/2022 Pulmonary embolism, bilateral (HCC) [I26.99] 06/16/2022 Depressive disorder [F32.A] 06/20/2022 Diabetes mellitus (HCC) [E11.9] 06/20/2022 Obesity, Class III, BMI >= 40 [E66.813] 06/27/2022 Preop testing [Z01.818] 08/02/2023 Antiphospholipid antibody syndrome (HCC) [D68.6*06/30/2022 Diagnosed: 08/02/2023 Atherosclerosis of aorta (HCC) [I70.0] 08/02/2023 Diagnosed: 08/02/2023 Presence of cardiac pacemaker [Z95.0] 06/30/2022 Diagnosed: 08/02/2023 Hypercoagulable state (HCC) [D68.59] 06/30/2022 Diagnosed: 08/02/2023 Stage 3 chronic kidney disease (HCC) [N18.30] 06/30/2022 Diagnosed: 08/02/2023 Acute on chronic systolic CHF (congestive heart*02/01/2025 Dilated cardiomyopathy (HCC) [I42.0] 02/04/2025 Encounter Status:Closed by DEENA DE JESUS on 03/28/25 [facility] 03-22-2025 [facility] Office Visit ([facility]) ----- ALISA HAGAN ([id number]) 1950 M Date Time Provider Department 03/22/25 10:30 AM DALI DILLON During your visit today, we recorded the following information about you: Pulse Respiration Blood pressure Weight 87/minute 16/minute 105/64 115.7 kg Height 1.753 m Dali Dillon, SEASONAL CLERK.ELECTRIC ARC WELDER 03/22/2025 12:55 PM Signed PRIMARY CARE PHYSICIAN: Smitha Ray [address] [place] [address] Chief Complaint Patient presents with: [facility] Hospital Follow Up: LBBB HISTORY OF PRESENT ILLNESS: Mr. Hagan is a 74 year old male who is known to Dr. Jain , patient has a history of atrial fibrillation, recent pacemaker implant [employer] dual-chamber pacemaker 07-22-[address] Horan for bradycardia and sinus node dysfunction, chronic recurrent pulmonary embolisms, he continued oral anticoagulation for suspected presence of left atrial clot PFO was also noted.. He sees Dr. Frias for pulmonary hypertension and with history of multiple thromboembolic events on chronic Coumadin therapy. Patient presented the hospital June 16, 2022, for dizziness and difficulty urinating was previously admitted for subscapular hematoma and retroperitoneal bleeding from May 24 to June 04 then June 05 through , CT done during the first admission showed large right subcapsular hematoma in the area of right renal mass extending inferiorly through the right retroperitoneum, he underwent IVC filter placement on 05-20-2022, in preparation for surgery, Coumadin was restarted he had a spontaneous bleed from his tumor requiring IR embolization, blood transfusion and admission to the MICU, During the June 16, 2022 admission, CT demonstrated bilateral pulmonary emboli and was transferred to interventional radiology for pulmonary angiography, pulmonary artery thrombectomy on June 21 he underwent robotic assisted laparoscopic right radial nephrectomy he received 2 units packed red blood cells intraoperatively. Was also found to be in atrial fibrillation with rapid ventricular response and was admitted to the ICU for postoperative management, patient received multiple transfusions postoperatively, on 06-26 CT of the chest revealed pneumonia started on antibiotics, was transitioned to Coumadin therapy During his admission for atrial fibrillation with rapid ventricular response, patient metoprolol was increased to 12.5 mg every 6 hours, he also was provided dig load, amiodarone was not recommended secondary to history of left atrial appendage thrombus. Patient was seen Dr. Jaeger in [place] on January 14, 2025 patient had been admitted to [facility] and underwent a stress test and echocardiogram that showed decline in LV function from 45 to 25%, he had complained of worsening shortness of breath fatigue and lower extremity edema, patient was started on guideline medical therapy, and it was reviewed with patient that he should undergo right and left heart catheterization for definitive diagnosis, it would was reviewed in great detail with patient that he would need to discontinue Eliquis for 48 hours prior to procedure he was worried about discontinuing oral anticoagulation he was also worried about renal function given his history of nephrectomy. He underwent a diagnostic heart catheterization on 02-04-2025, this demonstrated mild disease in the LAD, proximal circumflex had 50% disease RCA severe diffuse disease large-caliber vessel PDA small caliber vessel with severe diffuse disease normal LVEDP was recommended medicinal therapy. Patient arrives here today for hospital follow-up, he states he is doing much better with symptom management, he states he has resumed his activity around his house he does not do any structured exercise he states edema has greatly improved, his upcoming MRI planned regarding new diagnosis of kidney mass. He has some anxiety regarding this diagnosis. He denies any current orthopnea denies any chest discomfort PAST MEDICAL HISTORY Diagnosis Date A-fib ([facility]) 07/08/2017 Acute on chronic systolic CHF (congestive heart failure) ([facility]) Adjustment disorder with depressed mood Antiphospholipid antibody syndrome ([facility]) Anxiety disorder Chest pain 07/08/2017 Class 2 severe obesity due to excess calories with serious comorbidity and body mass index (BMI) of 38.0 to 38.9 in adult (HCC) Coronary artery disease involving akiak coronary artery of akiak heart without angina pectoris CTEPH (chronic thromboembolic pulmonary hypertension) ([facility]) Depression including post Diabetes mellitus (HCC) Dilated cardiomyopathy (HCC) Dyspnea 07/08/2017 Esophageal reflux HTN (hypertension) 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 Normal [facility] CNOVon 03-07-2025 CNOV Office Visit ([facility] ) ----- ALISA HAGAN ([id number]) 1950 M Date Time Provider Department 03/07/25 10:00 AM [facility] During your visit today, we recorded the following information about you: Temperature Pulse Respiration Blood pressure 98.6 degrees 80/minute 18/minute 144/95 Weight Height 110.2 kg 1.753 m Smitha Sidhu PA-C 03/07/2025 10:16 AM Signed DEPARTMENT OF PULMONARY MEDICINE ESTABLISHED PATIENT OFFICE VISIT 03/07/2025 HISTORY OF PRESENT ILLNESS: Alisa Hagan is a 74 year old male who presents today for follow-up regarding pulmonary hypertension. 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 Never smoker. Last saw Dr. Frias 06/23/2023. Most recent pulmonary office visit was on 01/03/25 with Jesenia Arzate CNP. Recommendations from that office visit were as follows: -Continue sildenafil 20 mg BID Was admitted to [facility] from 02/01/2025-02/04/2025 for treatment for CHF exacerbation, pulmonary not consulted this admission. Today, the patient reports he is doing fair since last office visit. Alisa reports the recent discovery of a kidney lesion following a scan ordered during a recent hospitalization. He has an MRI scheduled for 04/05/2023. He also has a history of nephrectomy and renal cancer, and it is noted that something was seen on his remaining kidney. He experiences dyspnea, which has been consistent over the past few years and occurs primarily with exertion, such as walking short distances or climbing a flight of stairs. Despite this, he is able to complete household tasks, albeit at a slower pace. He also reports a dry cough and occasional wheezing. He is currently on sildenafil 20 mg BID for pulmonary hypertension and Eliquis for a history of pulmonary embolism. He previously attempted sildenafil TID but experienced lightheadedness and dizziness, which he notes have been ongoing issues unrelated to the medication. He reports unintentional weight loss of 10-12 lbs and monitors his sodium intake. He also experiences chronic lower extremity edema, which he notes has improved recently. He is on Lasix 40 mg daily but has not been instructed to take an additional dose for increased swelling. He denies any worsening of edema at the end of the day and takes Lasix at variable times. He reports occasional chest pain but denies any recent pulmonary function tests or a 6-minute walk test in the past 2 years. Subjective ROS: Constitutional: (+) weight loss Cardiovascular: (+) chest pain, (+) peripheral edema Respiratory: (+) exertional dyspnea, (+) dry cough, (+) wheezing Neurological: (+) lightheadedness Current Outpatient Medications Medication Sig Dispense Refill OLANZapine (ZYPREXA) 5 mg tablet Take 5 mg by mouth daily at bedtime. fluticasone (FLONASE) 50 mcg/actuation nasal spray Use 2 Sprays in each nostril once daily. Rinse mouth after use. 11.1 mL 0 ELIQUIS 5 mg tab(s) Take 5 mg by mouth two times a day. buPROPion XL (WELLBUTRIN XL) 150 mg 24 hr tablet two times a day. metoprolol succinate ER (TOPROL XL) 25 mg 24 hr tablet Take 50 mg by mouth two times a day. atorvastatin (LIPITOR) 40 mg tablet Take 40 mg by mouth once daily. sildenafil (REVATIO) 20 mg tablet Take 1 tablet by mouth two times a day. 60 tablet 5 furosemide (LASIX) 40 mg tablet Take 40 mg by mouth once daily. finasteride (PROSCAR) 5 mg tablet Take 5 mg by mouth every evening. aspirin, enteric coated (ECOTRIN LOW STRENGTH) 81 mg EC tablet Take 1 tablet by mouth once daily. cholecalciferol (VITAMIN D3) 50 mcg (2,000 unit) tablet Take 2,000 Units by mouth twice daily. escitalopram 20 mg tablet Take 20 mg by mouth once daily. calcium carbonate (CALTRATE) 600 mg calcium (1,500 mg) tab Take 600 mg by mouth two times a day. calcitonin,salmon, (MIACALCIN) 200 unit/actuation nasal spray Inhale as instructed. (Patient not taking: Reported on 12/20/2023) No current facility-administered medications for this visit. I have reviewed and updated the medication list in the EMR. ALLERGIES No Known Allergies Immunization History Administered Date(s) Administered COVID-19 original vaccine, full dose, monovalent (MODERNA) 08/18/2021 COVID-19 vaccine (MIKE) 11/06/2020 diphtheria tetanus (DT) vaccine, pediatric 05/28/1985 influenza (HD-IIV3) vaccine, age 65+ yr, high dose, trivalent, PF (FLUZONE HIGH-DOSE) 05/26/2018 influenza (IIV3) vaccine, age 6 mo - 64 yr, trivalent (AFLURIA, FLULAVAL, FLUVIRIN, FLUZONE) 08/15/2013 06/29/2016 influenza (IIV4) vaccine, age 6 mo - 64 yr, quadrivalent, PF (AFLURIA, FLUARIX, FLULAVAL, FLUZONE) 05/10/2016 07/24/2019 inf (more content not included)... Normal [facility] ECHOon 02-26-2025 CONCLUSIONS: - Technically difficult exam due to body habitus. - Exam indication: Evaluation of known heart failure to guide therapy - The left ventricle is dilated. There is mild left ventricular hypertrophy. Left ventricular systolic function is moderately decreased. EF = 30 5% (visual est.) Definity contrast used for endocardial border detection. Left ventricular diastolic function was not evaluated due to AF. - The right ventricle is normal in size. Right ventricular systolic function is mildly decreased. - The left atrial cavity is mildly dilated. - The right atrial cavity is mildly dilated. - Exam was compared with the prior OUTSIDE echocardiographic exam performed on 12/31/2024 ([facility]). no significant change * * * Final * * * [facility] Echocardiography Report: Transthoracic Echo [facility] Date of service: 02/26/2025 10:38:14 AM HOSPITAL Ordering physician: JESENIA ARZATE Exam indication: Evaluation of known heart failure to guide therapy Technologist: [facility] Interpreting physician: Jared Prajapati MD PATIENT: Name: MR. ALISA HAGAN : 1950 Age: 74 years Gender: M History of hypertension, dyslipidemia, arrhythmia, cardiomyopathy and chronic kidney disease. Previous cardiovascular interventions: PCI (2017) Other pacemaker implant (07/22/2020) Primary rhythm: atrial fib. Height: 175.30 cm BSA: 2.35 m Weight: 112.95 kg BMI: 36.8 kg/m Heart rate 78 bpm Blood pressure 131/89 mmHg Technically difficult exam due to body habitus. IV discontinued (left forearm); site within normal limits. Color Doppler was utilized to interrogate the cardiac valves assessed and spectral Doppler was utilized to determine the flow velocities and pressure gradients reported in this exam. MEASUREMENTS: Value Indexed Normal Max aortic dimension 3.1 cm Ao < 3.8 Left atrial volume 87 ml (Vealsco's) 38 ml/m Campos <= 34 LV ID (diastole) 5.4 cm (2D) 2.31 cm/m LV ID (systole) 4.6 cm (2D) 1.97 cm/m IVS, leaflet tips 1.4 cm (2D) Posterior wall thickness 1.2 cm (2D) Left ventricular mass 306 g (2D) 131 g/m Ejection Fraction 30 % (visual est.) EF > 52 FINDINGS: LEFT VENTRICLE The left ventricle is dilated. There is mild left ventricular hypertrophy. Left ventricular systolic function is moderately decreased. Left ventricular diastolic function was not evaluated due to AF. Definity contrast used for endocardial border detection. Wall Motion: The entire apex, entire inferior wall, mid anterolateral segment, and mid inferoseptal segment are severely hypokinetic. The anterior septum, basal anterolateral segment, and basal inferoseptal segment are mildly hypokinetic. All remaining scored segments are normal. RIGHT VENTRICLE The right ventricle is normal in size. Pacer wires are noted in the right ventricle. Right ventricular systolic function is mildly decreased. Tricuspid annular displacement is 1.1 cm. Estimated right ventricular systolic pressure is not reported due to an insufficient tricuspid regurgitation signal. Estimated right atrial pressure is not included as the IVC was not seen. LEFT ATRIUM The left atrial cavity is mildly dilated. RIGHT ATRIUM The right atrial cavity is mildly dilated. Pacer wires are noted in the right atrium. MITRAL VALVE There is mild (1+ - 2+) mitral valve regurgitation. There is mild thickening. The pressure half time is 46 msec. The mitral flow deceleration time is 158 msec. TRICUSPID VALVE The tricuspid valve leaflets are structurally normal. There is trace tricuspid valve regurgitation. AORTIC VALVE The aortic valve cusps are structurally normal. There is no aortic valve regurgitation. Tricuspid aortic valve. PULMONIC VALVE The pulmonic valve cusps are structurally normal. There is trace (trace - 1+) pulmonic valve regurgitation. AORTA The visualized aorta is normal in size. Measurements - Sinus: 3.1 cm. Mid ascending aorta 3.0 cm. Mid arch 2.9 cm. INTERATRIAL SEPTUM There is no evidence of intracardiac shunting as detected by Doppler. INTERVENTRICULAR SEPTUM There is no flow through the interventricular septum as detected by Doppler. PERICARDIUM There is no pericardial effusion. [facility] Echocardiography Echocardiography Rep ort: Transthoracic Echo [facility] Date of service: 02/26/2025 10:38:14 AM HOSPITAL Ordering physician: JESENIA ARZATE Exam indication: Evaluation of known heart failure to guide therapy Technologist: [facility] Interpreting physician: Jared Prajapati MD PATIENT: Name: MR. ALISA HAGAN : 1950 Age: 74 years Gender: M History of hypertension, dyslipidemia, arrhythmia, cardiomyopathy and chronic kidney disease. Previous cardiovascular interventions: PCI (2017) Other pacemaker implant (07/22/2020) Primary rhythm: atrial fib. Height: 175.30 cm BSA: 2.35 m Weight: 112.95 kg BMI: 36.8 kg/m Heart rate 78 bpm Blood pressure 131/89 mmHg Technically difficult exam due to body habitus. IV discontinued (left forearm); site within normal limits. Color Doppler was utilized to interrogate the cardiac valves assessed and spectral Doppler was utilized to determine the flow velocities and pressure gradients reported in this exam. MEASUREMENTS: Value Indexed Normal Max aortic dimension 3.1 cm Ao < 3.8 Left atrial volume 87 ml (Velasco's) 38 ml/m Campos <= 34 LV ID (diastole) 5.4 cm (2D) 2.31 cm/m LV ID (systole) 4.6 cm (2D) 1.97 cm/m IVS, leaflet tips 1.4 cm (2D) Posterior wall thickness 1.2 cm (2D) Left ventricular mass 306 g (2D) 131 g/m Ejection Fraction 30 % (visual est.) EF > 52 FINDINGS: LEFT VENTRICLE The left ventricle is dilated. There is mild left ventricular hypertrophy. Left ventricular systolic function is moderately decreased. Left ventricular diastolic function was not evaluated due to AF. Definity contrast used for endocardial border detection. Wall Motion: The entire apex, entire inferior wall, mid anterolateral segment, and mid inferoseptal segment are severely hypokinetic. The anterior septum, basal anterolateral segment, and basal inferoseptal segment are mildly hypokinetic. All remaining scored segments are normal. RIGHT VENTRICLE The right ventricle is normal in size. Pacer wires are noted in the right ventricle. Right ventricular systolic function is mildly decreased. Tricuspid annular displacement is 1.1 cm. Estimated right ventricular systolic pressure is not reported due to an insufficient tricuspid regurgitation signal. Estimated right atrial pressure is not included as the IVC was not seen. LEFT ATRIUM The left atrial cavity is mildly dilated. RIGHT ATRIUM The right atrial cavity is mildly dilated. Pacer wires are noted in the right atrium. MITRAL VALVE There is mild (1+ - 2+) mitral valve regurgitation. There is mild thickening. The pressure half time is 46 msec. The mitral flow deceleration time is 158 msec. TRICUSPID VALVE The tricuspid valve leaflets are structurally normal. There is trace tricuspid valve regurgitation. AORTIC VALVE The aortic valve cusps are structurally normal. There is no aortic valve regurgitation. Tricuspid aortic valve. PULMONIC VALVE The pulmonic valve cusps are structurally normal. There is trace (trace - 1+) pulmonic valve regurgitation. AORTA The visualized aorta is normal in size. Measurements - Sinus: 3.1 cm. Mid ascending aorta 3.0 cm. Mid arch 2.9 cm. INTERATRIAL SEPTUM There is no evidence of intracardiac shunting as detected by Doppler. INTERVENTRICULAR SEPTUM There is no flow through the interventricular septum as detected by Doppler. PERICARDIUM There is no pericardial effusion. CONCLUSIONS: - Technically difficult exam due to body habitus. - Exam indication: Evaluation of known heart failure to guide therapy - The left ventricle is dilated. There is mild left ventricular hypertrophy. Left ventricular systolic function is moderately decreased. EF = 30 5% (visual est.) Definity contrast used for endocardial border detection. Left ventricular diastolic function was not evaluated due to AF. - The right ventricle is normal in size. Right ventricular systolic function is mildly decreased. - The left atrial cavity is mildly dilated. - The right atrial cavity is mildly dilated. - Exam was compared with the prior OUTSIDE echocardiographic exam performed on 12/31/2024 ([facility]). no significant change * * * Final * * * [facility] : [id number] Normal [facility] CNCOon 02-13-2025 CNCO Letter Text Letter Text Normal [facility] CNPNon 02-05-2025 CNPN Telephone ([facility]) ----- ALISA HAGAN ([id number]) 1950 M Date Time Provider Department 02/05/25 DEENA MIXON [facility] During your visit today, we recorded the following information about you: Deena De Jesus 02/05/2025 2:18 PM Signed Patient was discharged from [facility] 02-04-25 with an order to schedule with the [facility]. The Clinic reached out by phone with no contact. A letter was mailed to the patient asking them to contact the Clinic to schedule an appointment. Allergies As of Date: 02/05/2025 (No Known Allergies) Date Reviewed: 02/03/2025 Reviewed by: Mike Kohler, JOANN - Fully Assessed Reason for Visit: Orders [091] Cmt: [facility] order contact/ltr Prescriptions as of 02/05/2025 - OLANZapine (ZYPREXA) 5 mg tablet Take 5 mg by mouth daily at bedtime. - fluticasone (FLONASE) 50 mcg/actuation nasal spray Use 2 Sprays in each nostril once daily. Rinse mouth after use. - ELIQUIS 5 mg tab(s) Take 5 mg by mouth two times a day. - buPROPion XL (WELLBUTRIN XL) 150 mg 24 hr tablet two times a day. - metoprolol succinate ER (TOPROL XL) 25 mg 24 hr tablet Take 50 mg by mouth two times a day. - calcium carbonate (CALTRATE) 600 mg calcium (1,500 mg) tab Take 600 mg by mouth two times a day. - calcitonin,salmon, (MIACALCIN) 200 unit/actuation nasal spray Inhale as instructed. - atorvastatin (LIPITOR) 40 mg tablet Take 40 mg by mouth once daily. - sildenafil (REVATIO) 20 mg tablet Take 1 tablet by mouth two times a day. - furosemide (LASIX) 40 mg tablet Take 40 mg by mouth once daily. - finasteride (PROSCAR) 5 mg tablet Take 5 mg by mouth every evening. - aspirin, enteric coated (ECOTRIN LOW STRENGTH) 81 mg EC tablet Take 1 tablet by mouth once daily. - cholecalciferol (VITAMIN D3) 50 mcg (2,000 unit) tablet Take 2,000 Units by mouth twice daily. - escitalopram 20 mg tablet Take 20 mg by mouth once daily. Facility-Administered Medications as of 02/05/2025 - perflutren lipid microspheres 1.3 mL in NaCl (PF) 0.9% 10 mL injection (DEFINITY) - sodium chloride 0.9 % (flush) 10 mL (BD POSIFLUSH) Problem List As Of Date 02/05/2025 Noted Resolved COAGULAT DEFECT NEC/NOS [D68.9] 01/17/2009 PULM EMBOLISM/INFARCT NOS [I26.99] 01/17/2009 VENOUS THROMBOSIS NOS [I74.9] 01/17/2009 Persistent atrial fibrillation (HCC) [I48.19] 07/08/2017 Chest pain [R07.9] 07/08/2017 HTN (hypertension) [I10] Hyperlipidemia [E78.5] 07/08/2017 LBBB (left bundle branch block) [I44.7] 07/08/2017 SOB (shortness of breath) [R06.02] 09/01/2017 Recurrent pulmonary emboli (HCC) [I26.99] 09/01/2017 History of DVT (deep vein thrombosis) [Z86.718] 09/01/2017 Non-smoker [Z78.9] 09/01/2017 Class 2 severe obesity due to excess calories w*09/01/2017 Weight gain [R63.5] 09/01/2017 Decreased exercise tolerance [R68.89] 09/01/2017 Pulmonary HTN (HCC) [I27.20] 05/25/2018 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 S/P coronary artery stent placement [Z95.5] 10/11/2019 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/11/2019 Coronary artery disease involving akiak sandra*10/11/2019 Dizziness [R42] 10/11/2019 At risk for stroke [Z91.89] 11/22/2019 Status post placement of cardiac pacemaker [Z95*07/23/2020 Bradycardia [R00.1] 07/23/2020 Thrombus of left atrial appendage [I51.3] 02/04/2021 Preop cardiovascular exam [Z01.810] 04/30/2022 Hematoma [T14.8XXA] 05/24/2022 Right kidney mass [N28.89] 06/04/2022 Kidney hematoma [S37.019A] 06/04/2022 Acute blood loss anemia [D62] 06/04/2022 Hemorrhagic shock (HCC) [R57.8] 06/04/2022 Flank pain [R10.9] 06/05/2022 Leukocytosis [D72.829] 06/07/2022 Pulmonary embolism, bilateral (HCC) [I26.99] 06/16/2022 Depressive disorder [F32.A] 06/20/2022 Diabetes mellitus (HCC) [E11.9] 06/20/2022 Obesity, Class III, BMI >= 40 [E66.813] 06/27/2022 Preop testing [Z01.818] 08/02/2023 Antiphospholipid antibody syndrome (HCC) [D68.6*06/30/2022 Diagnosed: 08/02/2023 Atherosclerosis of aorta (HCC) [I70.0] 08/02/2023 Diagnosed: 08/02/2023 Presence of cardiac pacemaker [Z95.0] 06/30/2022 Diagnosed: 08/02/2023 Hypercoagulable state (HCC) [D68.59] 06/30/2022 Diagnosed: 08/02/2023 Stage 3 chronic kidney disease (HCC) [N18.30] 06/30/2022 Diagnosed: 08/02/2023 Acute on chronic systolic CHF (congestive heart*02/01/2025 Dilated cardiomyopathy (HCC) [I42.0] 02/04/2025 Letter Text Encounter Status:Closed by DEENA DE JESUS on 02/05/25 [facility] BRIEF OP NOTon 02-04-2025 BRIEF OP NOT HNO ID: [id number] Author: AURE JAEGER MD Service: Interventional Cardiology Author Type: Physician Type: Brief Op Note Filed: 02/04/2025 08:54 Note Text: CARDIAC CATHETERIZATION REPORT PATIENT NAME: Alisa Hagan SERVICE DATE: 02/04/2025 SERVICE TIME: 8:52 AM Bike Technician: Aure Jaeger MD Attending: Seth Alexander MD RECOMMENDATIONS: Continue medical therapy and risk factor modification Pre-Procedure Diagnosis: 74-year-old gentleman with known coronary artery disease who was admitted with decompensated systolic congestive heart failure. He was referred for left heart catheterization due to cardiomyopathy. Post- Procedure Diagnosis: Severely diseased small to PDA branch of the right coronary artery. Otherwise mild diffuse disease. Normal LVEDP Procedure: Left Heart Catheterization Access: Right Radial Artery Under Local anesthesia the Right Radial Artery was entered by Modified Seldinger's technique using a micro puncture needle. A 6F sheath was introduced into the Right Radial Artery . Selective injections were made in the left and right coronary arteries in various right and left anterior oblique views. An LV pressure was performed in 30 degree SHELL. The sheath was removed and hemostatsis was established using TR band closure device. There was no bleeding at the end of the procedure. The pt was returned to the recovery room in a stable condition. FINDINGS: Hemodynamics: LVEDP: 20 mmHg LV - AORTA: No gradient. Coronary Angiography: Left Main: Moderate to large caliber vessel no significant disease Left Anterior Descending: Moderate caliber vessel with mild diffuse disease Circumflex: Moderate caliber nondominant vessel. The ostium of the vessel has an eccentric 50% stenosis. Otherwise mild diffuse disease Right Coronary Artery: Large-caliber dominant vessel. The PDA branch is very small in caliber with severe diffuse disease throughout. The posterior ventricular branches are large in caliber with mild diffuse disease Collaterals: None Complications: None SIGNATURE: Aure Jaeger MD DATE: February 04, 2025 TIME: 8:52 AM Normal [facility] Basic metabolic 2000 panelon 02-04-2025 Anion gap [Moles/Vol] 11 mmol/L Normal 8-15 [facility] Comment on above: Order Comment: Speci men Type: BLOOD SPECIMEN Ordering Facility: [facility] Address: [address] [place] [address] Performed By: #### 3 4528-0, 61184-3 #### [facility] CLIA [id number] [address] [place] [address] [place] Calcium [Mass/Vol] 8.7 mg/dL Normal 8.5-10.2 [facility] Comment on above: Order Comment: Speci men Type: BLOOD SPECIMEN Ordering Facility: [facility] Address: [address] [place] [address] Performed By: #### 3 4528-0, 68344-6 #### [facility] CLIA [id number] [address] [place] [address] [place] Chloride [Moles/Vol] 103 mmol/L Normal 98-107 [facility] Comment on above: Order Comment: Speci men Type: BLOOD SPECIMEN Ordering Facility: [facility] Address: [address] [place] [address] Performed By: #### 3 4528-0, 34173-1 #### [facility] CLIA [id number] [address] [place] [address] [place] CO2 [Moles/Vol] 26 mmol/L Normal 22-30 [facility] Comment on above: Order Comment: Speci men Type: BLOOD SPECIMEN Ordering Facility: [facility] Address: [address] [place] [address] Performed By: #### 3 4528-0, 44220-8 #### [facility] CLIA [id number] [address] [place] [address] [place] Creatinine [Mass/Vol] 2.02 mg/dL High 0.73-1.22 [facility] Comment on above: Order Comment: Speci men Type: BLOOD SPECIMEN Ordering Facility: [facility] Address: [address] [place] [address] Performed By: #### 3 4528-0, 21478-5 #### [facility] CLIA [id number] [address] [place] [address] [place] Creatinine and Glomerular filtration rate.predicted panel (S/P/Bld) 34 mL/min/1.73m??? Low >=60 [facility] Comment on above: Order Comment: Mynor rodas Type: BLOOD SPECIMEN Ordering Facility: [facility] Address: [address] [place] [address] Result Comment: Susi mated Glomerular Filtration Rate (eGFR) is calculated using the 2020 CKD-EPI creatinine equation. This equation utilizes serum creatinine, sex, and age as parameters. The creatinine assay has traceable calibration to isotope dilution-mass spectrometry. Refer to KDIGO guidelines for clinical interpretation. In patients with unstable renal function, e.g. those with acute kidney injury, the eGFR may not accurately reflect actual GFR. Performed By: #### 3 4528-0, 57664-3 #### [facility] CLIA [id number] [address] [place] [address] [place] Glucose [Mass/Vol] 125 mg/dL High 74-99 [facility] Comment on above: Order Comment: Mynor rodas Type: BLOOD SPECIMEN Ordering Facility: [facility] Address: [address] [place] [address] Result Comment: The [place] Diabetes Association (ADA) provides guidance for cutoff values for fasting glucose and random glucose. The ADA defines fasting as no caloric intake for at least 8 hours. Fasting plasma glucose results between 100 to 125 mg/dL indicate increased risk for diabetes (prediabetes). Fasting plasma glucose results greater than or equal to 126 mg/dL meet the criteria for diagnosis of diabetes. In the absence of unequivocal hyperglycemia, results should be confirmed by repeat testing. In a patient with classic symptoms of hyperglycemia or hyperglycemic crisis, random plasma glucose results greater than or equal to 200 mg/dL meet the criteria for diagnosis of diabetes. Reference: Standards of Medical Care in Diabetes 2016, [employer] Diabetes Association. Diabetes Care. 2016.39(Suppl 1). Performed By: #### 3 4528-0, 44731-1 #### [facility] CLIA [id number] [address] [place] [address] [place] Potassium [Moles/Vol] 4.5 mmol/L Normal 3.7-5.1 [facility] Comment on above: Order Comment: Mynor rodas Type: BLOOD SPECIMEN Ordering Facility: [facility] Address: [address] [place] [address] Performed By: #### 3 4528-0, 21140-0 #### [facility] CLIA [id number] [address] Sodium [Moles/Vol] 140 mmol/L Normal 136-144 [facility] Comment on above: Order Comment: Speci men Type: BLOOD SPECIMEN Ordering Facility: [facility] Address: [address] [place] [address] Performed By: #### 3 4528-0, 37163-4 #### [facility] CLIA [id number] [address] [place] Urea nitrogen [Mass/Vol] 31 mg/dL High 9-24 [facility] Comment on above: Order Comment: Speci men Type: BLOOD SPECIMEN Ordering Facility: [facility] Address: [address] [place] [address] Performed By: #### 3 4528-0, 83175-9 #### [facility] [facility]AT[facility] CLIA [id number] [address] OF [facility] CARD CATH DIAGNOSTICon 02-04 CARD CATH DIAGNOSTIC Site Id: [facility] Lab #: DEFAULT Study Date: 02/04/2025 Start Time: End Time: Name Duty Aure Jaeger MD PROC MD 1 Ottoniel Ramirez PROC SCRUB 1 Marcelino Rice RN PROC CIRC 1 Dian Musa RN PROC RECORD 1 + + PATIENT INFORMATION + + [facility]: [facility] : 1950 Age: 74 years Gender: Height: 69 in / 175 cm Weight: 244.22 lb / 110.78 kg BMI: 36.06 kg/m BSA: 2.25 m + ----+ CLINICAL HISTORY/INDICATIONS + ----+ Appropriate Use Criteria (Diag): Known or suspected cardiomyopathy with or without heart failure; AUC score = 7. Procedural Status: Urgent CAD Presentation: No Symptoms, No Angina Angina Classification (within 2 weeks): No Angina Heart Failure: NYHA Class IV Clinical History: 74-year-old gentleman with known coronary artery disease who was admitted with decompensated systolic congestive heart failure. He was referred for left heart catheterization due to cardiomyopathy. + + DIAGNOSTIC FINDINGS + + Coronary Anatomy: Right Dominant Injection Site(s): Coronary Artery LMT: The LMT has mild luminal irregularities. LAD: The LAD has mild diffuse disease. LCX: The proximal circumflex is narrowed 50 % - focal disease. Additional Comment: Moderate caliber nondominant vessel. The ostium of the vessel has an eccentric 50% stenosis. Otherwise mild diffuse disease. RAMUS: Ramus Status: Not Applicable. RCA: The right posterior descending artery RCA - severe diffuse disease. Additional Comment: Large-caliber dominant vessel. The PDA branch is very small in caliber with severe diffuse disease throughout. The posterior ventricular branches are large in caliber with mild diffuse disease. + + IMPRESSION/PLAN + + Impression:Severely diseased small to PDA branch of the right coronary artery. Otherwise mild diffuse disease. Normal LVEDP Recommended Treatment: Medical Therapy. Plan: Severely diseased small to PDA branch of the right coronary artery. Otherwise mild diffuse disease. Normal LVEDP + + HEMODYNAMICS - XPER + + + +------+ -----+-------+-----+----- -+------+ Measurement Name Sys Maya End Maya Mean A Wave V Wave + +------+ -----+-------+-----+----- -+------+ LV 116.00 10.00 20.00 + +------+ -----+-------+-----+----- -+------+ LVp 128.00 9.00 15.00 + +------+ -----+-------+-----+----- -+------+ AOp 121.00 82.00 99.00 + +------+ -----+-------+-----+----- -+------+ AO 141.00 66.00 93.00 + +------+ -----+-------+-----+----- -+------+ Oximetry: + +---- ---+ +--+---+ -----+ Time Site O2 Saturation O2 PO2 HB + +---- ---+ +--+---+ -----+ 02/04/2025 8:31:39 AM SYS ART 15.80 + +---- ---+ +--+---+ -----+ 02/04/2025 8:31:39 AM SYS ANNIE 15.80 + +---- ---+ +--+---+ -----+ 02/04/2025 8:31:39 AM PUL ART 15.80 + +---- ---+ +--+---+ -----+ 02/04/2025 8:31:39 AM PUL ANNIE 15.80 + +---- ---+ +--+---+ -----+ + + ADVERSE OUTCOME(s)/COMPLICATION(s ) + + None + ------+ PROCEDURAL & TECHNICAL DETAILS + ------+ Date Time Description 02/04/2025 12:00:00 AM Left Heart Cath 02/04/2025 12:00:00 AM Right Heart Cath *MEDICAL HISTORY* CAD Presentation: No Symptoms, No Angina Angina Classification (within 2 weeks): No Angina Heart Failure: NYHA Class IV Family History of CAD: No Congenital Heart Disease: No Coronary Artery Disease: Yes Dyslipidemia: Yes Hypertension: Yes Arrhythmia: AFIB Creatinine > 2: No Dialysis: Currently not on dialysis Left Ventricle EF: 29 on 12/31/2024 by SPECT. LVEF at Discharge: Procedure Details: Blood Loss: < 30ml Specimen: No Specimen Obtained Recent PCI Failure of Treated Vessel: Contrast: Radiation: Procedure performed under Fluoroscopic Guidance Total Dose 292.10 mGy Dose Area Product 0.00 Gy*m Total Exposure Time 177.80 sec Baseline: HGB: Creatinine: Glucose: INR: Conscious Sedation Summary: Moderate sedation consisting of continuous ECG, pulse oxymetry and cardiopulmonary monitoring was performed by the Cardiology Nurse, overseen by the performing physician(s). Attending Physician Presence Attestation: Entire Procedure Electronically Submitted by: Aure Jaeger MD On: 02/07/2025 at 11:58:20 AM Final CC [facility] : [id number] (more content not included)... Normal [facility] CBC panel Auto (Bld)on 02-04 Erythrocyte distribution width (RBC) [Ratio] 13.9 % Normal 11.5-15.0 [facility] Comment on above: Order Comment: Speci men Type: BLOOD SPECIMEN Ordering Facility: [facility] Address: [address] [place] [address] Performed By: #### 3 4528-0, 77710-5 #### [facility] CLIA [id number] [address] [place] Hematocrit (Bld) [Volume fraction] 49.8 % Normal 39.0-51.0 [facility] Comment on above: Order Comment: Speci men Type: BLOOD SPECIMEN Ordering Facility: [facility] Address: [address] [place] [address] Performed By: #### 3 4528-0, 94697-7 #### [facility] CLIA [id number] 1 [place] [address] [place] Hemoglobin (Bld) [Mass/Vol] 15.8 g/dL Normal 13.0-17.0 [facility] Comment on above: Order Comment: Speci men Type: BLOOD SPECIMEN Ordering Facility: [facility] Address: [address] [place] [address] Performed By: #### 3 4528-0, 50301-9 #### [facility] CLIA [id number] [address] MCH (RBC) [Entitic mass] 29.6 pg Normal 26.0-34.0 [facility] Comment on above: Order Comment: Speci men Type: BLOOD SPECIMEN Ordering Facility: [facility] Address: [address] [place] [address] Performed By: #### 3 4528-0, 47684-4 #### [facility] CLIA [id number] [address] MCHC (RBC) [Mass/Vol] 31.7 g/dL Normal 30.5-36.0 [facility] Comment on above: Order Comment: Speci men Type: BLOOD SPECIMEN Ordering Facility: [facility] Address: [address] [place] [address] Performed By: #### 3 4528-0, 58736-3 #### [facility] CLIA [id number] [address] MCV (RBC) [Entitic vol] 93.4 fL Normal 80.0-100.0 [facility] Comment on above: Order Comment: Speci men Type: BLOOD SPECIMEN Ordering Facility: [facility] Address: [address] [place] [address] Performed By: #### 3 4528-0, 68594-6 #### [facility] CLIA [id number] [address] Nucleated RBC (Bld) [#/Vol] 10*3/uL Normal <0.01 [facility] Comment on above: Order Comment: Speci men Type: BLOOD SPECIMEN Ordering Facility: [facility] Address: [address] [place] [address] Performed By: #### 3 4528-0, 34260-7 #### [facility] CLIA [id number] [address] [place] Platelet mean volume (Bld) [Entitic vol] 9.9 fL Normal 9.0-12.7 [facility] Comment on above: Order Comment: Speci men Type: BLOOD SPECIMEN Ordering Facility: [facility] Address: [address] [place] [address] Performed By: #### 3 4528-0, 77101-5 #### [facility] CLIA [id number] [address] [place] Platelets (Bld) [#/Vol] 174 10*3/uL Normal 150-400 [facility] Comment on above: Order Comment: Speci men Type: BLOOD SPECIMEN Ordering Facility: [facility] Address: [address] [place] [address] Performed By: #### 3 4528-0, 40502-2 #### [facility] CLIA [id number] [address] [place] RBC (Bld) [#/Vol] 5.33 10*6/uL Normal 4.20-6.00 [facility] Comment on above: Order Comment: Speci men Type: BLOOD SPECIMEN Ordering Facility: [facility] Address: [address] [place] [address] Performed By: #### 3 4528-0, 37906-9 #### [facility] CLIA [id number] [address] [place] WBC (Bld) [#/Vol] 10.24 10*3/uL Normal 3.70-11.00 [facility] Comment on above: Order Comment: Speci men Type: BLOOD SPECIMEN Ordering Facility: [facility] Address: [address] [place] [address] Performed By: #### 3 4528-0, 17831-2 #### [facility] CLIA [id number] [address] [place] CNDSon 02-04-2025 [facility]DS HNO ID: [id number] Author: SETH ALEXANDER MD Service: Hospital Medicine Author Type: Physician Type: Discharge Summary Filed: 02/04/2025 22:28 Note Text: DISCHARGE SUMMARY PATIENT NAME: Alisa Hagan ADMISSION DATE: 02/01/2025 DISCHARGE DATE: 02/04/2025 ATTENDING PHYSICIAN: Seth Alexander MD Code Status: Full Code Highest Readmission Risk Score: 17 The 30 day readmissions risk score is derived from an internally validated risk model which evaluates patient level characteristics, utilization history, medication orders and lab results up until the day of discharge. Patients with a score of 39 or above are considered highest risk for readmission. Specific patient level drivers will be listed at the bottom of the summary. CONSULTING TEAMS DURING HOSPITALIZATION: Treatment Team: Attending Provider: Seth Alexander MD Consulting: Aure Jaeger MD Consulting: Adali King MD Primary Service: [facility] REASON FOR HOSPITALIZATION: FINAL DIAGNOSIS: Active Hospital Problems Diagnosis POA Acute on chronic systolic CHF (congestive heart failure) (HCC) Yes Dilated cardiomyopathy (HCC) Yes Antiphospholipid antibody syndrome (HCC) Yes Stage 3 chronic kidney disease (HCC) Yes Depressive disorder Yes Diabetes mellitus (HCC) Yes Coronary artery disease involving [place] coronary artery of [place]ki[place] heart without angina pectoris Yes 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 OPERATIONS DURING HOSPITALIZATION: PROCEDURES DURING HOSPITALIZATION: [facility] HOSPITAL COURSE: Patient is a 74-year-old male with history of solitary kidney secondary to renal cell cancer status post nephrectomy, stage III chronic kidney disease, type 2 diabetes mellitus, persistent atrial fibrillation, obesity BMI 37, acute on chronic systolic congestive heart failure left ventricular ejection fraction 25% transferred from [place] [facility] for acute on chronic congestive heart failure Cardiology is on consult, patient's regular import clerk, Dr. Jaeger, recommended left heart cath in hospital and had procedure done 02/04/2025. Access site through right radial artery. Cardiology recommendation to continue medical therapy. Patient can resume his home Eliquis from night dose on the day of discharge. Patient was given fluid maintenance fluid prior to left heart cath as well. Nephrology is consulted for CKD. Nephrology recommended to have repeat blood work BMP done on Tuesday and follow-up with them in clinic in 1 to 2 weeks. Cardiology and nephrology cleared patient for discharge. Access site with no bleeding, pain. Vital signs stable with no symptoms. Patient is discharged in stable condition. Patient to follow-up with his cardiology, nephrology, primary care physician. No medication changes were made. Pt and family has no concerns with discharge today. Nursing staff has no concern with discharge today. Patient had the opportunity to ask questions and questions were answered to satisfaction. Discharge preparation required approximately 35 minutes, encompassing patient education, medication review, and completion of discharge planning and paperwork. Transitions of Care Critical Issues: BMP done on Tuesday and follow-up with nephrology/ PCP in clinic in 1 to 2 weeks. LABS AND PROCEDURES PENDING AT DISCHARGE: No pending results. PATIENT CONDITION AT DISCHARGE: Fair DISCHARGE DISPOSITION: Home with Self Care General: Patient is alert and oriented x3 and is in no acute respiratory distress Lungs: Clear to auscultation, no wheezing, rales, or rhonchi. Cardiac: Regular rhythm and rate, S1-S2 Abdomen: Soft, distended from obesity, no tenderness on light/deep palpation, bowel sounds are active. Extremities: No edema, cyanosis INFORMATION PROVIDED TO PATIENT: Admitted with heart failure, inpatient evaluation with left heart catheterization. Cardiology saw you. Dr. Jaeger, recommended left heart cath in hospital and had procedure done 02/04/2025. Access site through right radial artery. Cardiology recommended to continue medical therapy. Patient can resume his home Eliquis from night dose on the day of discharge. Nephrology recommended to have repeat blood work BMP done on Tuesday and follow-up with them in clinic in 1 to 2 weeks. Access site with no bleeding, pain. Patient to follow-up with his cardiology, nephrology, primary care physician. No medication changes were made. Do not life heavy object (more than 5 to 10 pounds) with right hand. Avoid repetitive movements. Do not twist or strain at the wrist. Keep the area clean and dry for at least 2 (more content not included)... Normal [facility] Magnesium [facility] Magnesium [Mass/Vol] 2.3 mg/dL Normal 1.7-2.3 [facility] Comment on above: Order Comment: Speci men Type: BLOOD SPECIMEN Ordering Facility: [facility] Address: [address] [place] [address] Performed By: #### 3 4528-0, 37834-9 #### [facility] CLIA [id number] [address] OF [facility] aPTT PPPon 02-04-2025 aPTT Coag (PPP) [Time] 72.6 s High 23.0-32.4 [facility] Comment on above: Order Comment: Speci men Type: BLOOD SPECIMEN Ordering Facility: [facility] Address: [address] [place] [address] Performed By: #### 3 4528-0, 12133-3 #### [facility] CLIA [id number] [address] OF [facility] ALLIED HEALTHon 02-03-2025 ALLIED HEALTH HNO ID: [id number] Author: MEG DIAZ Chaplain Service: ? Author Type: Type: Allied Health Filed: 02/03/2025 19:34 Note Text: SPIRITUAL CARE PROGRESS NOTE SERVICE DATE: 02/03/2025 SERVICE TIME: 7PM Pre-surgery Patient, prayer given To contact the Spiritual Care Department: Please call [phone]. SIGNATURE: Chaplain Marina PATIENT NAME: Alisa Hagan DATE: February 03, 2025 TIME: 7:33 PM PAGER/CONTACT #: [phone] Normal [facility] Basic metabolic 2000 panelon 02-03-2025 Anion gap [Moles/Vol] 10 mmol/L Normal 8-15 [facility] Comment on above: Order Comment: Speci men Type: BLOOD SPECIMEN Ordering Facility: [facility] Address: [address] [place] [address] Performed By: #### 3 4528-0, 48381-9 #### [facility] CLIA [id number] [address] Calcium [Mass/Vol] 8.6 mg/dL Normal 8.5-10.2 [facility] Comment on above: Order Comment: Speci men Type: BLOOD SPECIMEN Ordering Facility: [facility] Address: [address] [place] [address] Performed By: #### 3 4528-0, 21762-1 #### [facility] CLIA [id number] 1 [place] [address] [place] Chloride [Moles/Vol] 103 mmol/L Normal 98-107 [facility] Comment on above: Order Comment: Speci men Type: BLOOD SPECIMEN Ordering Facility: [facility] Address: [address] [place] [address] Performed By: #### 3 4528-0, 89522-5 #### [facility] CLIA [id number] [address] [place] CO2 [Moles/Vol] 26 mmol/L Normal 22-30 [facility] Comment on above: Order Comment: Speci men Type: BLOOD SPECIMEN Ordering Facility: [facility] Address: [address] [place] [address] Performed By: #### 3 4528-0, 58721-8 #### [facility] CLIA [id number] 1 [place] [address] [place] Creatinine [Mass/Vol] 1.86 mg/dL High 0.73-1.22 [facility] Comment on above: Order Comment: Speci men Type: BLOOD SPECIMEN Ordering Facility: [facility] Address: [address] [place] [address] Performed By: #### 3 4528-0, 59325-4 #### [facility] CLIA [id number] [address] [place] Creatinine and Glomerular filtration rate.predicted panel (S/P/Bld) 38 mL/min/1.73m??? Low >=60 [facility] Comment on above: Order Comment: Speci men Type: BLOOD SPECIMEN Ordering Facility: [facility] Address: [address] [place] [address] Result Comment: Susi mated Glomerular Filtration Rate (eGFR) is calculated using the 2020 CKD-EPI creatinine equation. This equation utilizes serum creatinine, sex, and age as parameters. The creatinine assay has traceable calibration to isotope dilution-mass spectrometry. Refer to KDIGO guidelines for clinical interpretation. In patients with unstable renal function, e.g. those with acute kidney injury, the eGFR may not accurately reflect actual GFR. Performed By: #### 3 4528-0, 40978-4 #### [facility] CLIA [id number] 1 [place] [address] [place] Glucose [Mass/Vol] 116 mg/dL High 74-99 [facility] Comment on above: Order Comment: Mynor rodas Type: BLOOD SPECIMEN Ordering Facility: [facility] Address: [address] [place] [address] Result Comment: The [place] Diabetes Association (ADA) provides guidance for cutoff values for fasting glucose and random glucose. The ADA defines fasting as no caloric intake for at least 8 hours. Fasting plasma glucose results between 100 to 125 mg/dL indicate increased risk for diabetes (prediabetes). Fasting plasma glucose results greater than or equal to 126 mg/dL meet the criteria for diagnosis of diabetes. In the absence of unequivocal hyperglycemia, results should be confirmed by repeat testing. In a patient with classic symptoms of hyperglycemia or hyperglycemic crisis, random plasma glucose results greater than or equal to 200 mg/dL meet the criteria for diagnosis of diabetes. Reference: Standards of Medical Care in Diabetes 2016, [employer] Diabetes Association. Diabetes Care. 2016.39(Suppl 1). Performed By: #### 3 4528-0, 82808-0 #### [facility] CLIA [id number] 1 [place] [address] [place] Potassium [Moles/Vol] 4.1 mmol/L Normal 3.7-5.1 [facility] Comment on above: Order Comment: Mynor rodas Type: BLOOD SPECIMEN Ordering Facility: [facility] Address: [address] [place] [address] Performed By: #### 3 4528-0, 19975-4 #### [facility] CLIA [id number] 1 [place] [address] [place] Sodium [Moles/Vol] 139 mmol/L Normal 136-144 [facility] Comment on above: Order Comment: Speci men Type: BLOOD SPECIMEN Ordering Facility: [facility] Address: [address] [place] [address] Performed By: #### 3 4528-0, 39684-9 #### [email or web address] CLIA [id number] [address] [place] Urea nitrogen [Mass/Vol] 40 mg/dL High 9-24 [facility] Comment on above: Order Comment: Speci men Type: BLOOD SPECIMEN Ordering Facility: [facility] Address: [address] [place] [address] Performed By: #### 3 4528-0, 15478-2 #### [facility] CLIA [id number] [address] [place] CBC panel Auto (Bld)on 02-03 Erythrocyte distribution width (RBC) [Ratio] 13.8 % Normal 11.5-15.0 [facility] Comment on above: Order Comment: Speci men Type: BLOOD SPECIMEN Ordering Facility: [facility] Address: [address] [place] [address] Performed By: #### 5 8410-2 #### [facility] CLIA [id number] [address] [place] OF [facility] Hematocrit (Bld) [Volume fraction] 44.6 % Normal 39.0-51.0 [facility] Comment on above: Order Comment: Speci men Type: BLOOD SPECIMEN Ordering Facility: [facility] Address: [address] [place] [address] Performed By: #### 5 8410-2 #### [email or web address] CLIA [id number] [address] [place] Hemoglobin (Bld) [Mass/Vol] 14.8 g/dL Normal 13.0-17.0 [facility] Comment on above: Order Comment: Speci men Type: BLOOD SPECIMEN Ordering Facility: [facility] Address: [address] [place] [address] Performed By: #### 5 8410-2 #### [facility] CLIA [id number] [address] MCH (RBC) [Entitic mass] 29.8 pg Normal 26.0-34.0 [facility] Comment on above: Order Comment: Speci men Type: BLOOD SPECIMEN Ordering Facility: [facility] Address: [address] [place] [address] Performed By: #### 5 8410-2 #### [facility] CLIA [id number] [address] MCHC (RBC) [Mass/Vol] 33.2 g/dL Normal 30.5-36.0 [facility] Comment on above: Order Comment: Speci men Type: BLOOD SPECIMEN Ordering Facility: [facility] Address: [address] [place] [address] Performed By: #### 5 8410-2 #### [facility] CLIA [id number] [address] MCV (RBC) [Entitic vol] 89.7 fL Normal 80.0-100.0 [facility] Comment on above: Order Comment: Speci men Type: BLOOD SPECIMEN Ordering Facility: [facility] Address: [address] [place] [address] Performed By: #### 5 8410-2 #### [facility] CLIA [id number] [address] Nucleated RBC (Bld) [#/Vol] 10*3/uL Normal <0.01 [facility] Comment on above: Order Comment: Speci men Type: BLOOD SPECIMEN Ordering Facility: [facility] Address: [address] [place] [address] Performed By: #### 5 8410-2 #### [facility] CLIA [id number] [address] Platelet mean volume (Bld) [Entitic vol] 9.8 fL Normal 9.0-12.7 [facility] Comment on above: Order Comment: Speci men Type: BLOOD SPECIMEN Ordering Facility: [facility] Address: [address] [place] [address] Performed By: #### 5 8410-2 #### [facility] CLIA [id number] [address] [facility] Platelets (Bld) [#/Vol] 148 10*3/uL Low 150-400 [facility] Comment on above: Order Comment: Speci men Type: BLOOD SPECIMEN Ordering Facility: [facility] Address: [address] [place] [address] Performed By: #### 5 8410-2 #### [facility] CLIA [id number] [address] [place] RBC (Bld) [#/Vol] 4.97 10*6/uL Normal 4.20-6.00 [facility] Comment on above: Order Comment: Speci men Type: BLOOD SPECIMEN Ordering Facility: [facility] Address: [address] [place] [address] Performed By: #### 5 8410-2 #### [facility] CLIA [id number] [address] OF [facility] WBC (Bld) [#/Vol] 7.86 10*3/uL Normal 3.70-11.00 [facility] Comment on above: Order Comment: Speci men Type: BLOOD SPECIMEN Ordering Facility: [facility] Address: [address] [place] [address] Performed By: #### 5 8410-2 #### [facility] CLIA [id number] [address] [place] Magnesium SerPl-mCncon 02-03 Magnesium [Mass/Vol] 2.2 mg/dL Normal 1.7-2.3 [facility] Comment on above: Order Comment: Speci men Type: BLOOD SPECIMEN Ordering Facility: [facility] Address: [address] [place] [address] Performed By: #### 3 4528-0, 92045-5 #### [facility] CLIA [id number] [address] OF [place] aPTT PPPon 02-03-2025 aPTT Coag (PPP) [Time] 42.6 s High 23.0-32.4 [facility] Comment on above: Order Comment: Speci men Type: BLOOD SPECIMEN Ordering Facility: [facility] Address: [address] [place] [address] Performed By: #### 3 4528-0, 38623-1 #### [facility] CLIA [id number] [address] aPTT Coag (PPP) [Time] 75.1 s High 23.0-32.4 [facility] Comment on above: Order Comment: Speci men Type: BLOOD SPECIMEN Ordering Facility: [facility] Address: [address] [place] [address] Performed By: #### 3 4528-0, 31092-9 #### [facility] CLIA [id number] [address] aPTT Coag (PPP) [Time] 39.0 s High 23.0-32.4 [facility] Comment on above: Order Comment: Speci men Type: BLOOD SPECIMEN Ordering Facility: [facility] Address: [address] [place] [address] Performed By: #### 1 4979-9 #### [facility] CLIA [id number] [address] aPTT Coag (PPP) [Time] 128.6 s High 23.0-32.4 [facility] Comment on above: Order Comment: Speci men Type: BLOOD SPECIMEN Ordering Facility: [facility] Address: [address] [place] [address] Performed By: #### 3 4528-0, 39123-6 #### [facility] CLIA [id number] [address] Basic metabolic 2000 panelon 02-02-2025 Anion gap [Moles/Vol] 10 mmol/L Normal 8-15 [facility] Comment on above: Order Comment: Speci men Type: BLOOD SPECIMEN Ordering Facility: [facility] Address: [address] [place] [address] Performed By: #### 3 4528-0, 55443-5 #### [facility] CLIA [id number] 1 [place] [address] [place] Calcium [Mass/Vol] 8.5 mg/dL Normal 8.5-10.2 [facility] Comment on above: Order Comment: Speci men Type: BLOOD SPECIMEN Ordering Facility: [facility] Address: [address] [place] [address] Performed By: #### 3 4528-0, 51364-7 #### [facility] CLIA [id number] 1 [place] [address] [place] Chloride [Moles/Vol] 102 mmol/L Normal 98-107 [facility] Comment on above: Order Comment: Speci men Type: BLOOD SPECIMEN Ordering Facility: [facility] Address: [address] [place] [address] Performed By: #### 3 4528-0, 37081-1 #### [facility] CLIA [id number] 1 [place] [address] [place] CO2 [Moles/Vol] 27 mmol/L Normal 22-30 [facility] Comment on above: Order Comment: Speci men Type: BLOOD SPECIMEN Ordering Facility: [facility] Address: [address] [place] [address] Performed By: #### 3 4528-0, 00030-7 #### [facility] CLIA [id number] 1 [place] [address] [place] Creatinine [Mass/Vol] 1.99 mg/dL High 0.73-1.22 [facility] Comment on above: Order Comment: Speci men Type: BLOOD SPECIMEN Ordering Facility: [facility] Address: [address] [place] [address] Performed By: #### 3 4528-0, 89712-1 #### [facility] CLIA [id number] [address] [place] Creatinine and Glomerular filtration rate.predicted panel (S/P/Bld) 35 mL/min/1.73m??? Low >=60 [facility] Comment on above: Order Comment: Mynor rodas Type: BLOOD SPECIMEN Ordering Facility: [facility] Address: [address] [place] [address] Result Comment: Susi mated Glomerular Filtration Rate (eGFR) is calculated using the 2020 CKD-EPI creatinine equation. This equation utilizes serum creatinine, sex, and age as parameters. The creatinine assay has traceable calibration to isotope dilution-mass spectrometry. Refer to KDIGO guidelines for clinical interpretation. In patients with unstable renal function, e.g. those with acute kidney injury, the eGFR may not accurately reflect actual GFR. Performed By: #### 3 4528-0, 60611-5 #### [facility] CLIA [id number] [address] [place] [address] [place] Glucose [Mass/Vol] 116 mg/dL High 74-99 [facility] Comment on above: Order Comment: Mynor rodas Type: BLOOD SPECIMEN Ordering Facility: [facility] Address: [address] [place] [address] Result Comment: The [employer] Diabetes Association (ADA) provides guidance for cutoff values for fasting glucose and random glucose. The ADA defines fasting as no caloric intake for at least 8 hours. Fasting plasma glucose results between 100 to 125 mg/dL indicate increased risk for diabetes (prediabetes). Fasting plasma glucose results greater than or equal to 126 mg/dL meet the criteria for diagnosis of diabetes. In the absence of unequivocal hyperglycemia, results should be confirmed by repeat testing. In a patient with classic symptoms of hyperglycemia or hyperglycemic crisis, random plasma glucose results greater than or equal to 200 mg/dL meet the criteria for diagnosis of diabetes. Reference: Standards of Medical Care in Diabetes 2016, [employer] Diabetes Association. Diabetes Care. 2016.39(Suppl 1). Performed By: #### 3 4528-0, 98295-1 #### [facility] CLIA [id number] [address] [place] [address] [place] Potassium [Moles/Vol] 4.4 mmol/L Normal 3.7-5.1 [facility] Comment on above: Order Comment: Speci men Type: BLOOD SPECIMEN Ordering Facility: [facility] Address: [address] [place] [address] Performed By: #### 3 4528-0, 48128-8 #### [facility] CLIA [id number] [address] Sodium [Moles/Vol] 139 mmol/L Normal 136-144 [facility] Comment on above: Order Comment: Speci men Type: BLOOD SPECIMEN Ordering Facility: [facility] Address: [address] [place] [address] Performed By: #### 3 4528-0, 40568-0 #### [facility] CLIA [id number] [address] [place] [address] [place] Urea nitrogen [Mass/Vol] 42 mg/dL High 9-24 [facility] Comment on above: Order Comment: Speci men Type: BLOOD SPECIMEN Ordering Facility: [facility] Address: [address] [place] [address] Performed By: #### 3 4528-0, 67999-2 #### [facility] CLIA [id number] [address] [place] CBC panel Auto (Bld)on 02-02 Erythrocyte distribution width (RBC) [Ratio] 13.9 % Normal 11.5-15.0 [facility] Comment on above: Order Comment: Speci men Type: BLOOD SPECIMEN Ordering Facility: [facility] Address: [address] [place] [address] Performed By: #### 3 4528-0, 05736-7 #### [facility] CLIA [id number] [address] [place] Hematocrit (Bld) [Volume fraction] 44.1 % Normal 39.0-51.0 [facility] Comment on above: Order Comment: Speci men Type: BLOOD SPECIMEN Ordering Facility: [facility] Address: [address] [place] [address] Performed By: #### 3 4528-0, 67785-1 #### [facility] CLIA [id number] [address] Hemoglobin (Bld) [Mass/Vol] 14.5 g/dL Normal 13.0-17.0 [facility] Comment on above: Order Comment: Speci men Type: BLOOD SPECIMEN Ordering Facility: [facility] Address: [address] [place] [address] Performed By: #### 3 4528-0, 15602-6 #### [facility] CLIA [id number] [address] MCH (RBC) [Entitic mass] 29.7 pg Normal 26.0-34.0 [facility] Comment on above: Order Comment: Speci men Type: BLOOD SPECIMEN Ordering Facility: [facility] Address: [address] [place] [address] Performed By: #### 3 4528-0, 72726-4 #### [facility] CLIA [id number] [address] MCHC (RBC) [Mass/Vol] 32.9 g/dL Normal 30.5-36.0 [facility] Comment on above: Order Comment: Speci men Type: BLOOD SPECIMEN Ordering Facility: [facility] Address: [address] [place] [address] Performed By: #### 3 4528-0, 23748-2 #### [facility] CLIA [id number] [address] MCV (RBC) [Entitic vol] 90.4 fL Normal 80.0-100.0 [facility] Comment on above: Order Comment: Speci men Type: BLOOD SPECIMEN Ordering Facility: [facility] Address: [address] [place] [address] Performed By: #### 3 4528-0, 74993-2 #### [facility] CLIA [id number] [address] Nucleated RBC (Bld) [#/Vol] 10*3/uL Normal <0.01 [facility] Comment on above: Order Comment: Speci men Type: BLOOD SPECIMEN Ordering Facility: [facility] Address: [address] [place] [address] Performed By: #### 3 4528-0, 50189-2 #### [facility] CLIA [id number] [address] Platelet mean volume (Bld) [Entitic vol] 10.1 fL Normal 9.0-12.7 [facility] Comment on above: Order Comment: Speci men Type: BLOOD SPECIMEN Ordering Facility: [facility] Address: [address] [place] [address] Performed By: #### 3 4528-0, 04324-2 #### [facility] CLIA [id number] [address] [place] Platelets (Bld) [#/Vol] 151 10*3/uL Normal 150-400 [facility] Comment on above: Order Comment: Speci men Type: BLOOD SPECIMEN Ordering Facility: [facility] Address: [address] [place] [address] Performed By: #### 3 4528-0, 87142-2 #### [facility] CLIA [id number] [address] [place] RBC (Bld) [#/Vol] 4.88 10*6/uL Normal 4.20-6.00 [facility] Comment on above: Order Comment: Speci men Type: BLOOD SPECIMEN Ordering Facility: [facility] Address: [address] [place] [address] Performed By: #### 3 4528-0, 64673-9 #### [facility] CLIA [id number] [address] [place] WBC (Bld) [#/Vol] 8.86 10*3/uL Normal 3.70-11.00 [facility] Comment on above: Order Comment: Speci men Type: BLOOD SPECIMEN Ordering Facility: [facility] Address: [address] [place] [address] Performed By: #### 3 4528-0, 24055-9 #### [facility] CLIA [id number] [address] [place] CONSULTon 02-02-2025 CONSULT HNO ID: [id number] Author: REAL PALOMINO MD Service: Cardiovascular Medicine Author Type: Physician Type: Consults Filed: 02/02/2025 09:10 Note Text: CONSULT: CARDIOLOGY SERVICE SERVICE DATE: 02/02/2025 SERVICE TIME: 8:59 AM CONSULTING PHYSICIAN: Real Palomino MD PCP: Smitha Ray IV, DO ATTENDING: Seth Alexander MD REASON FOR CONSULT: Shortness of Breath Subjective CHIEF COMPLAINT: Acute on chronic systolic CHF (congestive heart failure) (HCC) [I50.23] HISTORY OF PRESENT ILLNESS: Mr. Hagan is a 74 year old male who presents for a acute decompensated heart failure. He was last seen by us on 01/14/2025 at [facility]. He is a 74-year-old male with known CAD, prior PCI to diagonal 3 branch in April 2018, found to have residual disease in the circumflex and RCA, also has history of persistent A-fib, known cardiomyopathy, hypertension hyperlipidemia, seen for [facility] care. In 06/2020, he did require permanent pacemaker implantation. He was seen by EP nurse practitioner yesterday. He was complaining of acutely decompensated heart failure symptoms. And he was subsequently seen by the emergency room and subsequently admitted for heart failure treatment. From cardiac standpoint, he did have regadenoson Cardiolite stress test on 12/31/2024. It did reveal resting LV function of 29%. There were fixed septal and mid to distal anterior hypoperfusion suggestive of previous transmural infarct versus artifact secondary to underlying left bundle. His 2D echo dated posterior on 12/29/2024 demonstrates EF of 25 to 30% with dilated LA and RA. There was moderate mitral regurgitation. Elevated PA pressures. When seen today, he is comfortable laying flat. Does not complain of any dyspnea or chest pain. He feels much better compared to yesterday after Lasix treatment. He does have underlying CKD stage III, he does have solitary left kidney as he required resection of right kidney tumor. His baseline creatinine is 1.7-1.8 as of 2023. His creatinine today is 1.9 and has stayed stable. At baseline, he denies any true angina. 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 on chronic Coumadin,managed by pcp Hyperlipidemia 07/08/2017 LBBB (left bundle branch block) 07/08/2017 Orthostasis Other acute embolism veins 11/2008 left leg Other pulmonary embolism and infarction 1998 Other specified disorder of gallbladder Presence of IVC filter Pulmonary HTN (HCC) Recurrent pulmonary emboli (HCC) Renal mass, right S/p nephrectomy S/P Difficult robotic radical nephrectomy on the right Sinus pause SOB (shortness of breath) 07/08/2017 PAST SURGICAL HISTORY Procedure Laterality Date CARDIOVERSION 09/12/2020 Successful conversion from atrial fibrillation to atrial paced rhythm, by Dr. Horan at [facility] CARDIOVERSION 02/04/2021 Successful conversion from atrial fibrillation to sinus rhythm, by Dr. Horan at [facility] CC PCI CORONARY INTERVENT 2018 CT ANGIOGRAPHY CHEST 11/30/2016 w/contrast ECHO TRANSESOPHAG CONGEN PROBE [facility] IAWAR 01/02/2021 EF 55%, +LAKSHMI thrombus, +PFO ECHO TRANSESOPHAG CONGEN PROBE [facility] IANDR 02/04/2021 EF 50%, mildly dilated RV, moderately dilated LA, no LAKSHMI thrombus, no PFO ECHOCARDIOGRAM 01/04/2006 [facility] EKG 12 LEAD 04/23/2011 [facility] EVENT MONITOR 07/08/2017 24 hour LAPS SURG CHOLECYSTECTOMY W/CHOLANGIOGRAPHY 04/21/2009 PACEMAKER IMPLANT Left 07/22/2020 Dual chamber, [employer], MRI compatible 6 weeks after implantm by Dr. Horan at [facility] PAST SURGICAL HISTORY OF Right kidney removal May 2022 STRESS TEST 03/11/2006 [facility] WENDY (TRANSESOPHAGEAL ECHO) 11/30/2016 [facility] DO TONSILLECTOMY PRIMARY/SECONDARY AGE 14/> FAMILY HISTORY Problem Relation Age of Onset Arthritis Mother Cancer Mother Blood Disease Father clotting factor Diabetes Father Seizures Father Blood Disease Sister clotting factor DVT Sister Blood Disease Brother clotting ffactor DVT Brother Social History Tobacco Use Smoking status: Never Smokeless tobacco: Never Vaping Use Vaping status: Never Used Substance Use Topics Alcohol use: No Drug use: No Prior to Admission Medications Prescriptions Last Dose Informant Patient Reported? Taking? ELIQUIS 5 mg tab(s) 02/01/2025 Yes Yes Sig: Take 5 mg by mouth two times a day. OLANZapine (ZYPREXA) 5 mg tablet Yes No Sig: Take 5 mg by mouth daily at bedtime. aspirin, enteric coated (ECOTRIN LOW STRENGTH) 81 mg EC tablet 02/01/2025 Patient No Yes Sig: Take 1 tablet by mouth once daily. atorvastatin (LIPITOR) 40 mg tablet 02/01/2025 Yes Y (more content not included)... Normal [facility] CONSULT HNO ID: [id number] Author: LEIA BRAY MD Service: Nephrology Author Type: Nurse Practitioner Type: Consults Filed: 02/02/2025 11:47 Note Text: ----- Attestation signed by Leia Bray MD at 02/02/2025 11:47 AM I have personally seen and examined this patient. I agree with assessment and the plan by Charissa Hines APRN.ELECTRIC [employer] WELDER. 74 years old male status post unilateral nephrectomy who has CKD with baseline creatinine 1.7-1.8. Previously seen by Dr. Snyder, but decided against follow-up with him. Currently facing possible cardiac catheterization. Creatinine is 1.99, not far from baseline. Clinically somewhat fluid overloaded. ----- [facility] [address] [place] [address] Consult Note Patient's Name: Alisa Hagan 6:54 AM 02/02/2025 ATTENDING/ADMITTING PHYSICIAN:Hali Reardon MD Reason for consultation: farideh on stage 3 ckd. admitted for acute chf History of Present Ilness: Alisa Hagan is a 74 year old male with history of solitary kidney secondary to renal cell cancer status post nephrectomy, stage III chronic kidney disease, type 2 diabetes mellitus, persistent atrial fibrillation, obesity BMI 37, acute on chronic systolic congestive heart failure left ventricular ejection fraction 25% transferred from [place] [facility] for acute on chronic congestive heart failure after presenting there with exertional dyspnea. Nephrology is consulted for farideh on stage 3 ckd. admitted for acute chf. 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 His baseline cr appears to be 1.7-1.8 mg/dL back in 05/2024, came in with Cr of 1.94 mg/dL. 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 on chronic Coumadin,managed by pcp Hyperlipidemia 07/08/2017 LBBB (left bundle branch block) 07/08/2017 Orthostasis Other acute embolism veins 11/2008 left leg Other pulmonary embolism and infarction 1998 Other specified disorder of gallbladder Presence of IVC filter Pulmonary HTN (HCC) Recurrent pulmonary emboli (HCC) Renal mass, right S/p nephrectomy S/P Difficult robotic radical nephrectomy on the right Sinus pause SOB (shortness of breath) 07/08/2017 PAST SURGICAL HISTORY Procedure Laterality Date CARDIOVERSION 09/12/2020 Successful conversion from atrial fibrillation to atrial paced rhythm, by Dr. Horan at [facility] CARDIOVERSION 02/04/2021 Successful conversion from atrial fibrillation to sinus rhythm, by Dr. Horan at [facility] CC PCI CORONARY INTERVENT 2019 CT ANGIOGRAPHY CHEST 11/30/2016 w/contrast ECHO TRANSESOPHAG CONGEN PROBE [facility] IANDR 01/02/2021 EF 55%, +LAKSHMI thrombus, +PFO ECHO TRANSESOPHAG CONGEN PROBE [facility] IANDR 02/04/2021 EF 50%, mildly dilated RV, moderately dilated LA, no LAKSHMI thrombus, no PFO ECHOCARDIOGRAM 01/04/2006 [facility] EKG 12 LEAD 04/23/2011 [facility] EVENT MONITOR 07/08/2017 24 hour LAPS SURG CHOLECYSTECTOMY W/CHOLANGIOGRAPHY 04/21/2009 PACEMAKER IMPLANT Left 07/22/2020 Dual chamber, [employer], MRI compatible 6 weeks after implantm by Dr. Horan at [facility] PAST SURGICAL HISTORY OF Right kidney removal May 2022 STRESS TEST 03/11/2006 [facility] WENDY (TRANSESOPHAGEAL ECHO) 11/30/2016 [facility]ul/Payton Hastings, TONSILLECTOMY PRIMARY/SECONDARY AGE 14/> FAMILY HISTORY Problem Relation Age of Onset Arthritis Mother Cancer Mother Blood Disease Father clotting factor Diabetes Father Seizures Father Blood Disease Sister clotting factor DVT Sister Blood Disease Brother clotting ffactor DVT Brother reports that he has never smoked. He has never used smokeless tobacco. He reports that he does not drink alcohol and does not use drugs. Allergies: Patient has no known allergies. Current Medications: Current Facility-Administered Medications Medication Dose Route Frequency escitalopram oxalate 20 mg tab(s) (LEXAPRO) 20 mg ORAL DAILY aspirin, enteric coated 81 mg tab(s) 81 mg ORAL DAILY finasteride 5 mg tab(s) (PROSCAR) 5 mg ORAL AT BEDTIME furosemide 40 mg tab(s) (LASIX) 40 mg ORAL DAILY sildenafil 20 mg tab(s) (REVATIO) 20 mg ORAL BID atorvastatin 40 mg tab(s) (LIPITOR) 40 mg ORAL DAILY buPROPion XL 150 mg tab(s) (WELLBUTRIN XL) 150 mg ORAL BID metoprolol succinate ER 50 mg tab(s) (TOPROL XL) 50 mg ORAL BID OLANZapine 5 mg tab(s) (ZYPREXA) 5 m (more content not included)... Normal [facility] CRP SerPl-mCncon 02-02-2025 CRP [Mass/Vol] mg/L Normal <0.9 [facility] Comment on above: Order Comment: Speci men Type: BLOOD SPECIMEN Ordering Facility: [facility] Address: [address] [place] [address] [place] [id number] Performed By: #### 3 4528-0, 19406-6 #### [facility] CLIA [id number] [address] OF [facility] PT panel Coag (PPP)on 2024 INR Coag (PPP) [Relative time] 1.2 {INR} Normal 0.9-1.3 [facility] Comment on above: Order Comment: Mynor rodas Type: BLOOD SPECIMEN Ordering Facility: [facility] Address: [address] [place] [address] Result Comment: Fabiola min K Antagonist (VKA) Therapeutic Range: INR 2 to 3 (Target INR of 2.5) Note: For patients treated with VKA drugs, such as warfarin, the [employer] 2012 Guideline recommends a therapeutic INR range of 2 to 3 (target INR of 2.5). This recommendation includes high-risk patients with antiphospholipid syndrome with previous arterial or venous thromboembolism, current-generation mechanical or bioprosthetic aortic heart valve replacement. Note: Patients with mechanical aortic valve replacement and additional risk factors for thromboembolic events (atrial fibrillation, previous thromboembolism, LV dysfunction, hypercoagulable conditions) or an older generation mechanical AVR (i.e., ball in-Cage) or any mechanical MVR should have a INR therapeutic range of 2.5 to 3.5 (target INR of 3). Genaro GH, et al. Chest 2012, 141:7S-47S Parris RA et al. [facility] 2017, 70: 252-289 Performed By: #### 3 4528-0, 63192-6 #### [facility] CLIA [id number] [address] [place] PT Coag (PPP) [Time] 12.4 s Normal 9.7-13.0 [facility] Comment on above: Order Comment: Mynor rodas Type: BLOOD SPECIMEN Ordering Facility: [facility] Address: [address] [place] [address] Performed By: #### 3 4528-0, 73382-0 #### [facility] CLIA [id number] [address] [place] Procalcitonin SerPl-mCncon 0 02-02-2025 Procalcitonin [Mass/Vol] ng/mL Normal <0.09 [facility] Comment on above: Order Comment: Speci men Type: BLOOD SPECIMEN Ordering Facility: [facility] Address: [address] [place] [address] Result Comment: For a guided interpretation of test results, please visit the Change in Procalcitonin Calculator, [email or web address]. Performed By: #### 3 4528-0, 25166-9 #### [facility] CLIA [id number] [address] [place] STREPTOCOCCUS PNEUMONIAE ANT IGEN URINEon 02-02-2025 STREPTOCOCCUS PNEUMONIAE ANTIGEN URINE STREP PNEUMO AG RESULT: Negative for Streptococcus pneumoniae antigen. Presumptive negative for pneumococcal pneumonia, suggesting no current or recent pneumococcal infection. Infection due to S.pneumoniae cannot be ruled out since the antigen present in the sample may be below the detection limit of the test. Normal [facility] Comment on above: Performed By: #### S PNAG ####[facility] [id number] [place] [address] [place] aPTT PPPon 02-02-2025 aPTT Coag (PPP) [Time] 47.4 s High 23.0-32.4 [facility] Comment on above: Order Comment: Speci men Type: BLOOD SPECIMEN Ordering Facility: [facility] Address: [address] [place] [address] Performed By: #### 1 4979-9 #### [facility] CLIA [id number] [address] [place] [address] [place] aPTT Coag (PPP) [Time] 37.0 s High 23.0-32.4 [facility] Comment on above: Order Comment: Speci men Type: BLOOD SPECIMEN Ordering Facility: [facility] Address: [address] [place] [address] Performed By: #### 3 4528-0, 95377-6 #### [facility] CLIA [id number] [address] [place] aPTT Coag (PPP) [Time] 29.6 s Normal 23.0-32.4 [facility] Comment on above: Order Comment: Speci men Type: BLOOD SPECIMEN Ordering Facility: [facility] Address: [address] [place] [id number] Performed By: #### 3 4528-0, 14842-9 #### [facility] CLIA [id number] [address] ALLIED HEALTHon 02-01-2025 ALLIED HEALTH HNO ID: [id number] Author: ELIA SCHERER RT(R) Service: Radiology Author Type: Technologist Type: Allied Health Filed: 02/01/2025 11:30 Note Text: Radiology Service Progress Note DATE OF SERVICE: February 01, 2025 TIME: 11:30 AM PATIENT IDENTITY VERIFICATION COMPLETED USING TWO (2) STANDARD IDENTIFIERS: Name and Date of confirmed by patient verbally and Name and Date of confirmed by identification band. FALL SCREENING: Has the patient had 2 falls in the last year or 1 fall with injury or currently using an Ambulatory Assistive Device (Walker, Cane, Wheelchair, Crutches, etc.)? Emergency Room Patient: Screened in ED PATIENT GENDER DATA: Assigned male at PATIENT RELEVANT IMPLANT DATA REVIEWED: Not Applicable PATIENT PRESENTS WITH AN IMPLANTABLE OR ATTACHED WIREWORKER SUPERVISOR: No ALLERGIES: Reviewed and unchanged CONTRAST ALLERGY: NO. EXAM: CT -CONTRAST INDUCED NEPHROPATHY RISK FACTORS: Patient age > 60 years, Known Chronic Kidney Disease (CKD), and History of Kidney surgery, Kidney neoplasm, Liver disease, and/or any recent Nephrotoxic Chemotherapy or other Nephrotoxic medications CREATININE: Creatinine Date Value Ref Range Status 02/01/2025 1.94 (H) 0.73 - 1.22 mg/dL Final Comment: Use of this assay is not recommended for patients undergoing treatment with phenindione, due to the potential for falsely depressed results. 11/28/2024 1.81 (H) 0.73 - 1.22 mg/dL Final 06/06/2024 1.70 (H) 0.73 - 1.22 mg/dL Final Estimated Glomerular Filtration Rate Date Value Ref Range Status 02/01/2025 36 (L) >=60 mL/min/1.73m? Final Comment: Estimated Glomerular Filtration Rate (eGFR) is calculated using the 2020 CKD-EPI creatinine equation. This equation utilizes serum creatinine, sex, and age as parameters. The creatinine assay has traceable calibration to isotope dilution-mass spectrometry. Refer to KDIGO guidelines for clinical interpretation. In patients with unstable renal function, e.g. those with acute kidney injury, the eGFR may not accurately reflect actual GFR. eGFR- Date Value Ref Range Status 02/04/2021 >60 Final P.O.C.T. RESULTS: POC done: Yes, See Lab Tab February 01, 2025 TREATMENT: N/A PERIPHERAL IV DATA: Inpatient - refer to LDA documentation RADIOLOGY DEPARTMENT: CT; Exam(s) Completed: PE Study SIGNATURE: RT Parker(R) PATIENT NAME: Alisa Hagan DATE: February 01, 2025 TIME: 11:30 AM [facility] ALLIED HEALTH HNO ID: [id number] Author: ANDRZEJ HURTADO RT(R) Service: Radiology Author Type: Technologist Type: Allied Health Filed: 02/01/2025 10:27 Note Text: RADIOLOGY SERVICE PROGRESS NOTE DATE OF SERVICE: February 01, 2025 TIME OF SERVICE: 10:26 am EVENT: EXAM/PROCEDURE NOT COMPLETED - EXAM CHANGED TO A CT PE STUDY PER ER. DR. WEATHERS ADDITIONAL EVENT DETAILS: N/A SIGNATURE: RT Elizabeth(R) PATIENT NAME: Alisa Hagan DATE: February 01, 2025 TIME: 10:26 AM PAGER/CONTACT #: Normal [facility] CBC W Auto Differential pane l (Bld)on 02-01-2025 Basophils (Bld) [#/Vol] 0.03 10*3/uL Normal <0.11 [facility] Comment on above: Order Comment: Speci men Type: BLOOD SPECIMEN Ordering Facility: [facility] Address: [address] [place] [address] Performed By: #### 3 4528-0, 31338-1 #### [facility] CLIA [id number] 1 [place] [address] [place] Basophils/100 WBC (Bld) 0.3 % Normal [facility] Comment on above: Order Comment: Speci men Type: BLOOD SPECIMEN Ordering Facility: [facility] Address: [address] [place] [address] Performed By: #### 3 4528-0, 34514-6 #### [facility] CLIA [id number] [address] Differential cell count method Nom (Bld) Auto Normal [facility] Comment on above: Order Comment: Speci men Type: BLOOD SPECIMEN Ordering Facility: [facility] Address: [address] [place] [address] Performed By: #### 3 4528-0, 97294-3 #### [facility] CLIA [id number] [address] OF [facility] Eosinophils (Bld) [#/Vol] 0.17 10*3/uL Normal <0.46 [facility] Comment on above: Order Comment: Speci men Type: BLOOD SPECIMEN Ordering Facility: [facility] Address: [address] [place] [address] Performed By: #### 3 4528-0, #### [facility] CLIA [id number] [address] Eosinophils/100 WBC (Bld) 2.0 % Normal [facility] Comment on above: Order Comment: Speci men Type: BLOOD SPECIMEN Ordering Facility: [facility] Address: [address] [place] [address] Performed By: #### 3 4528-0, 84119-8 #### [facility] CLIA [id number] [address] Erythrocyte distribution width (RBC) [Ratio] 13.5 % Normal 11.5-15.0 [facility] Comment on above: Order Comment: Speci men Type: BLOOD SPECIMEN Ordering Facility: [facility] Address: [address] [place] [address] Performed By: #### 3 4528-0, 64801-1 #### [facility] CLIA [id number] [address] [place] Hematocrit (Bld) [Volume fraction] 45.7 % Normal 39.0-51.0 [facility] Comment on above: Order Comment: Speci men Type: BLOOD SPECIMEN Ordering Facility: [facility] Address: [address] [place] [address] Performed By: #### 3 4528-0, 70930-6 #### [facility] CLIA [id number] [address] [place] Hemoglobin (Bld) [Mass/Vol] 14.8 g/dL Normal 13.0-17.0 [facility] Comment on above: Order Comment: Speci men Type: BLOOD SPECIMEN Ordering Facility: [facility] Address: [address] [place] [address] Performed By: #### 3 4528-0, 56201-6 #### [facility] CLIA [id number] [address] [place] Immature granulocytes (Bld) [#/Vol] 10*3/uL Normal <0.10 [facility] Comment on above: Order Comment: Speci men Type: BLOOD SPECIMEN Ordering Facility: [facility] Address: [address] [place] [address] Performed By: #### 3 4528-0, 22629-8 #### [facility] CLIA [id number] [address] [place] Immature granulocytes/100 WBC (Bld) 0.1 % Normal [facility] Comment on above: Order Comment: Speci men Type: BLOOD SPECIMEN Ordering Facility: [facility] Address: [address] [place] [address] Performed By: #### 3 4528-0, 56505-1 #### [facility] CLIA [id number] 1 [place] [address] [place] Lymphocytes (Bld) [#/Vol] 1.05 10*3/uL Normal 1.00-4.00 [facility] Comment on above: Order Comment: Speci men Type: BLOOD SPECIMEN Ordering Facility: [facility] Address: [address] [place] [address] Performed By: #### 3 4528-0, 84373-2 #### [facility] CLIA [id number] [address] Lymphocytes/100 WBC (Bld) 12.1 % Normal [facility] Comment on above: Order Comment: Speci men Type: BLOOD SPECIMEN Ordering Facility: [facility] Address: [address] [place] [address] Performed By: #### 3 4528-0, 07085-4 #### [facility] CLIA [id number] [address] MCH (RBC) [Entitic mass] 29.9 pg Normal 26.0-34.0 [facility] Comment on above: Order Comment: Speci men Type: BLOOD SPECIMEN Ordering Facility: [facility] Address: [address] [place] [address] Performed By: #### 3 4528-0, 91820-2 #### [facility] CLIA [id number] [address] MCHC (RBC) [Mass/Vol] 32.4 g/dL Normal 30.5-36.0 [facility] Comment on above: Order Comment: Speci men Type: BLOOD SPECIMEN Ordering Facility: [facility] Address: [address] [place] [address] Performed By: #### 3 4528-0, 64781-3 #### [facility] CLIA [id number] [address] MCV (RBC) [Entitic vol] 92.3 fL Normal 80.0-100.0 [facility] Comment on above: Order Comment: Speci men Type: BLOOD SPECIMEN Ordering Facility: [facility] Address: [address] [place] [address] Performed By: #### 3 4528-0, 52980-3 #### [facility] CLIA [id number] [address] Monocytes (Bld) [#/Vol] 0.72 10*3/uL Normal <0.87 [facility] Comment on above: Order Comment: Speci men Type: BLOOD SPECIMEN Ordering Facility: [facility] Address: [address] [place] [address] Performed By: #### 3 4528-0, 56052-0 #### [facility] CLIA [id number] [address] [place] Monocytes/100 WBC (Bld) 8.3 % Normal [facility] Comment on above: Order Comment: Speci men Type: BLOOD SPECIMEN Ordering Facility: [facility] Address: [address] [place] [address] Performed By: #### 3 4528-0, 79795-3 #### [facility] CLIA [id number] [address] [place] Neutrophils (Bld) [#/Vol] 6.70 10*3/uL Normal 1.45-7.50 [facility] Comment on above: Order Comment: Speci men Type: BLOOD SPECIMEN Ordering Facility: [facility] Address: [address] [place] [address] Performed By: #### 3 4528-0, 59821-1 #### [facility] CLIA [id number] [address] [place] Neutrophils/100 WBC (Bld) 77.2 % Normal [facility] Comment on above: Order Comment: Speci men Type: BLOOD SPECIMEN Ordering Facility: [facility] Address: [address] [place] [address] Performed By: #### 3 4528-0, 98811-9 #### [facility] CLIA [id number] [address] [place] Nucleated RBC (Bld) [#/Vol] Normal [facility] Comment on above: Order Comment: Speci men Type: BLOOD SPECIMEN Ordering Facility: [facility] Address: [address] [place] [address] Performed By: #### 3 4528-0, 40798-5 #### [facility] CLIA [id number] [address] [place] Nucleated RBC/100 WBC (Bld) [Ratio] Normal [facility] Comment on above: Order Comment: Speci men Type: BLOOD SPECIMEN Ordering Facility: [facility] Address: [address] [place] [address] Performed By: #### 3 4528-0, 43361-8 #### [facility] CLIA [id number] 1 [place] [address] [place] Platelet mean volume (Bld) [Entitic vol] 9.7 fL Normal 9.0-12.7 [facility] Comment on above: Order Comment: Speci men Type: BLOOD SPECIMEN Ordering Facility: [facility] Address: [address] [place] [address] Performed By: #### 3 4528-0, 47699-5 #### [facility] CLIA [id number] [address] [place] Platelets (Bld) [#/Vol] 153 10*3/uL Normal 150-400 [facility] Comment on above: Order Comment: Speci men Type: BLOOD SPECIMEN Ordering Facility: [facility] Address: [address] [place] [address] Performed By: #### 3 4528-0, 54702-9 #### [facility] CLIA [id number] [address] [place] RBC (Bld) [#/Vol] 4.95 10*6/uL Normal 4.20-6.00 [facility] Comment on above: Order Comment: Speci men Type: BLOOD SPECIMEN Ordering Facility: [facility] Address: [address] [place] [address] Performed By: #### 3 4528-0, 22315-8 #### [facility] CLIA [id number] [address] [place] WBC (Bld) [#/Vol] 8.68 10*3/uL Normal 3.70-11.00 [facility] Comment on above: Order Comment: Speci men Type: BLOOD SPECIMEN Ordering Facility: [facility] Address: [address], [place] [id number] Performed By: #### 3 4528-0, 56082-3 #### [facility] [id number] [address] OF [facility] CNOVon 02-01-2025 CNOV Office Visit (CARDAG HWW) ----- ALISA HAGAN ([id number]) 1950 M Date Time Provider Department 02/01/25 9:00 AM DALI DILLON CARDAGHWW During your visit today, we recorded the following information about you: Pulse Respiration Blood pressure Weight 99/minute 18/minute 142/94 116.1 kg Height 1.753 m Dali Dillon, SEASONAL CLERK.ELECTRIC ARC WELDER 02/01/2025 12:51 PM Signed PRIMARY CARE PHYSICIAN: Smitha Ray [address] [place] [address] Chief Complaint Patient presents with: CARD Follow Up 6 Month: Follow up HISTORY OF PRESENT ILLNESS: Mr. Hagan is a 74 year old male who is known to Dr. Jain , patient has a history of atrial fibrillation, recent pacemaker implant [employer] dual-chamber pacemaker 07-22-[address] Horan for bradycardia and sinus node dysfunction, chronic recurrent pulmonary embolisms, he continued oral anticoagulation for suspected presence of left atrial clot PFO was also noted.. He sees Dr. Frias for pulmonary hypertension and with history of multiple thromboembolic events on chronic Coumadin therapy. Patient presented the hospital June 16, 2022, for dizziness and difficulty urinating was previously admitted for subscapular hematoma and retroperitoneal bleeding from May 24 to June 04 then June 05 through , CT done during the first admission showed large right subcapsular hematoma in the area of right renal mass extending inferiorly through the right retroperitoneum, he underwent IVC filter placement on 05-20-2022, in preparation for surgery, Coumadin was restarted he had a spontaneous bleed from his tumor requiring IR embolization, blood transfusion and admission to the MICU, During the June 16, 2022 admission, CT demonstrated bilateral pulmonary emboli and was transferred to interventional radiology for pulmonary angiography, pulmonary artery thrombectomy on June 21 he underwent robotic assisted laparoscopic right radial nephrectomy he received 2 units packed red blood cells intraoperatively. Was also found to be in atrial fibrillation with rapid ventricular response and was admitted to the ICU for postoperative management, patient received multiple transfusions postoperatively, on 06-26 CT of the chest revealed pneumonia started on antibiotics, was transitioned to Coumadin therapy During his admission for atrial fibrillation with rapid ventricular response, patient metoprolol was increased to 12.5 mg every 6 hours, he also was provided dig load, amiodarone was not recommended secondary to history of left atrial appendage thrombus. Patient was seen Dr. Jaeger in [place] on January 14, 2025 patient had been admitted to [facility] and underwent a stress test and echocardiogram that showed decline in LV function from 45 to 25%, he had complained of worsening shortness of breath fatigue and lower extremity edema, patient was started on guideline medical therapy, and it was reviewed with patient that he should undergo right and left heart catheterization for definitive diagnosis, it would was reviewed in great detail with patient that he would need to discontinue Eliquis for 48 hours prior to procedure he was worried about discontinuing oral anticoagulation he was also worried about renal function given his history of nephrectomy. Patient arrives today for general cardiology appointment, he states he woke up this morning severely short of breath, states worst day ever. Patient seated upright in chair in exam room, with marked shortness of breath, abdominal breathing noted with marked conversational dyspnea. Diminished bilateral breath sounds 1-2+ lower extremity edema 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 on chronic Coumadin,managed by pcp Hyperlipidemia 07/08/2017 LBBB (left bundle branch block) 07/08/2017 Orthostasis Other acute embolism veins 11/2008 left leg Other pulmonary embolism and infarction 1998 Other specified disorder of gallbladder Presence of IVC filter Pulmonary HTN (HCC) Recurrent pulmonary emboli (HCC) Renal mass, right S/p nephrectomy S/P Difficult robotic radical nephrectomy on the right Sinus pause SOB (shortness of breath) 07/08/2017 PAST SURGICAL HISTORY Procedure Laterality Date CARDIOVERSION 09/12/2020 Successful conversion from atrial fibrillation to atrial paced rhythm, by Dr. Horan at [facility] CARDIOVERSION 02/04/2021 Successful conversion from atrial fibrillation to sinus rhythm, by Dr. Horan at [facility] CC PCI CORONARY INTERVENT 2019 CT ANGIOGRAPHY CHEST 11/30/2016 w/contras (more content not included)... Normal [facility] CTA CHEST (NON GATED) W IVCO N PEon 02-01-2025 CTA CHEST (NON GATED) W IVCON PE * * *Final Report* * * DATE OF EXAM: Feb 01 2025 11:30AM AWC 0564 - CTA CHEST (NON GATED) W IVCON PE / PROCEDURE REASON: Pulmonary embolism (PE) suspected, high prob * * * * Physician Interpretation * * * * EXAMINATION: CHEST CTA (NON GATED) WITH CONTRAST (PULMONARY EMBOLISM PROTOCOL) Clinical History: Shortness of breath Technique: Spiral CT acquisition of the chest from the thoracic inlet to the upper abdomen following IV contrast. Axial 1 and 3 mm thick slices plus coronal and sagittal reformatted images. MQ: CTCP_5 Contrast: 100 mL Omnipaque [address] Radiation dose: Integrated Dose-length product (DLP) for this visit = 654 mGy*cm CT Dose Reduction Employed: Automated exposure control (AEC) CTA: Post-processed images (Maximum intensity Projection (MIP), Volume-rendered (VR), or Surface shaded display images (SSD) were created, reviewed and archived. Comparison: CT chest from 09/29/2022 RESULT: Limitations: None. Evaluation for thromboembolic disease: - Right heart chambers: No thromboembolic disease. - Main pulmonary arteries: No thromboembolic disease. - Lobar pulmonary arteries: No thromboembolic disease. - Segmental pulmonary arteries: No thromboembolic disease. - Subsegmental pulmonary arteries: No thromboembolic disease. - Additional pulmonary artery findings: The main pulmonary artery is normal in caliber. Lines, tubes, and devices: Left-sided cardiac pacemaker. Lung parenchyma and airways: Numerous calcified granulomata are again seen. There is a 5 mm noncalcified lung nodule within the posterolateral right upper lobe on image 80 of series 9 which appears to be new. An additional new 4 mm posterior right upper lobe nodule is present on image 93. Scattered new subpleural peripheral right upper lobe nodules are seen on images 89 through 94. Diffuse interstitial coarsening/edema is present. Thickening of the pleura. There is diffuse bilateral bronchial wall thickening. There are no endobronchial lesions. Pleural space: Trace right pleural effusion. Lower neck, lymph nodes, and mediastinum: There are calcified and noncalcified mediastinal and hilar nodes. A couple of the right hilar nodes appear slightly more prominent. Heart, pericardium, and thoracic vessels: Aortic and coronary artery calcifications. Normal cardiac size. Bones and soft tissues: No acute bony abnormality. Old left rib fracture. Upper abdomen: Stable right adrenal nodule. There is a nonspecific enlarging exophytic nodule from the anterior upper pole of the left kidney, barely perceptible on the previous exam and now measuring 13 mm as seen on image 394 of series 5. Localizer images: No additional findings. IMPRESSION: 1. No CT evidence of pulmonary embolism. 2. Findings of bronchitis. 3. There are new very small nodular densities within the right upper lobe along with mild right hilar lymph node enlargement. Additional small regions of infiltrate are also seen within the right upper lobe. All findings are thought to most likely represent an inflammatory or infectious process. However, a 3-6 month follow-up unenhanced CT chest is recommended to assure stability. 4. Findings of mild edema. 5. Trace right pleural effusion. 6. 13 mm left renal nodule. Nonemergent renal ultrasound recommended. ACTIONABLE RESULT: FOLLOW-UP Acuity: Actionable Findings: Thoracic-Other Routing Code: CT_1 Recommendation: CT Chest WO IVCON Time Frame: 3-6 months COMMUNICATION: Results will be communicated with the ordering provider via [employer] staff message or phone message by [facility] [employer] within 2 business days of report finalization. --END OF FINDING-- Findings: Thoracic-Other Routing Code: CT_1 Recommendation: CT Chest WO IVCON Time Frame: 3-6 months COMMUNICATION: Results will be communicated with the ordering provider via [employer] staff message or phone message by [facility] within 2 business days of report finalization. --END OF FINDING-- Patient Accounts Specialist: MURTAZA Transcribe Date/Time: Feb 01 2025 11:35A Dictated by : CHUCK SAVAGE MD This examination was interpreted and the report reviewed and electronically signed by: CHUCK SAVAGE MD on Feb 01 2025 11:53AM EST [id number] ACTIONABLE Invalid Interpretation Code [facility] Comprehensive metabolic 2000 panelon 02-01-2025 Albumin [Mass/Vol] 3.9 g/dL Normal 3.9-4.9 [facility] Comment on above: Order Comment: Speci men Type: BLOOD SPECIMENOrdering Facility: [facility] Address: [address] [place] [address] Performed By: #### 2 4323-8 ####[facility] [id number] [place] [address] [place] [facility] ALP [Catalytic activity/Vol] 79 U/L Normal 38-113 [facility] Comment on above: Order Comment: Speci men Type: BLOOD SPECIMENOrdering Facility: [facility] Address: [address] [place] [address] Performed By: #### 2 4323-8 ####[facility] [id number] [place] [address] [place] ALT [Catalytic activity/Vol] 31 U/L Normal 10-54 [facility] Comment on above: Order Comment: Speci men Type: BLOOD SPECIMENOrdering Facility: [facility] Address: [address] [place] [address] Performed By: #### 2 4323-8 ####[facility] [id number] [place] [address] [place] Anion gap [Moles/Vol] 7 mmol/L Low 8-15 [facility] Comment on above: Order Comment: Speci men Type: BLOOD SPECIMENOrdering Facility: [facility] Address: [address] [place] [address] Performed By: #### 2 4323-8 ####[facility] [id number] [place] [address] [place] AST [Catalytic activity/Vol] 28 U/L Normal 14-40 [facility] Comment on above: Order Comment: Speci men Type: BLOOD SPECIMENOrdering Facility: [facility] Address: [address] [place] [address] Performed By: #### 2 4323-8 ####[facility] [id number] [place] [address] [place] Bilirubin [Mass/Vol] 1.5 mg/dL High 0.2-1.3 [facility] Comment on above: Order Comment: Speci men Type: BLOOD SPECIMENOrdering Facility: [facility] Address: [address] [place] [address] Result Comment: Use of this assay is not recommended for patients undergoing treatment with eltrombopag due to the potential for falsely elevated results. Performed By: #### 2 4323-8 ####[facility] [id number] [place], [place] [address] [place] Calcium [Mass/Vol] 8.8 mg/dL Normal 8.5-10.2 [facility] Comment on above: Order Comment: Speci men Type: BLOOD SPECIMENOrdering Facility: [facility] Address: [address] [place] [address] Performed By: #### 2 4323-8 ####[facility] LAB[facility]IA [id number] [place] [address] [place] Chloride [Moles/Vol] 107 mmol/L Normal 98-107 [facility] Comment on above: Order Comment: Speci men Type: BLOOD SPECIMENOrdering Facility: [facility] Address: [address] [place] [address] Performed By: #### 2 4323-8 ####[facility]IA [id number] [place] [address] [place] CO2 [Moles/Vol] 23 mmol/L Normal 22-30 [facility] Comment on above: Order Comment: Speci men Type: BLOOD SPECIMENOrdering Facility: [facility] Address: [address] [place] [address] Performed By: #### 2 4323-8 ####[facility]CLIA [id number] [place] [address] [place] Creatinine [Mass/Vol] 1.94 mg/dL High 0.73-1.22 [facility] Comment on above: Order Comment: Mynor rodas Type: BLOOD SPECIMENOrdering Facility: [facility] Address: [address] [place] [address] Result Comment: Use of this assay is not recommended for patients undergoing treatment with phenindione, due to the potential for falsely depressed results. Performed By: #### 2 4323-8 ####[facility] LABCLIA [id number] [place] [address] [place] Creatinine and Glomerular filtration rate.predicted panel (S/P/Bld) 36 mL/min/1.73m??? Low >=60 [facility] Comment on above: Order Comment: Mynor rodas Type: BLOOD SPECIMENOrdering Facility: [facility] Address: [address] [place] [address] Result Comment: Susi mated Glomerular Filtration Rate (eGFR) is calculated using the 2020 CKD-EPI creatinine equation. This equation utilizes serum creatinine, sex, and age as parameters. The creatinine assay has traceable calibration to isotope dilution-mass spectrometry. Refer to KDIGO guidelines for clinical interpretation. In patients with unstable renal function, e.g. those with acute kidney injury, the eGFR may not accurately reflect actual GFR. Performed By: #### 2 4323-8 ####[facility] LABCLIA [id number] [place] [address] [place] Glucose [Mass/Vol] 139 mg/dL High 74-99 [facility] Comment on above: Order Comment: Mynor clark Type: BLOOD SPECIMENOrdering Facility: [facility] Address: [address] [place] [address] Result Comment: The [place] Diabetes Association (ADA) provides guidance for cutoff values for fasting glucose and random glucose. The ADA defines fasting as no caloric intake for at least 8 hours. Fasting plasma glucose results between 100 to 125 mg/dL indicate increased risk for diabetes (prediabetes). Fasting plasma glucose results greater than or equal to 126 mg/dL meet the criteria for diagnosis of diabetes. In the absence of unequivocal hyperglycemia, results should be confirmed by repeat testing. In a patient with classic symptoms of hyperglycemia or hyperglycemic crisis, random plasma glucose results greater than or equal to 200 mg/dL meet the criteria for diagnosis of diabetes. Reference: Standards of Medical Care in Diabetes 2016, Chinese Diabetes Association. Diabetes Care. 2016.39(Suppl 1). Performed By: #### 2 4323-8 ####[facility]CLIA [id number] [place] [address] [place] Potassium [Moles/Vol] 4.9 mmol/L Normal 3.7-5.1 [facility] Comment on above: Order Comment: Speci men Type: BLOOD SPECIMENOrdering Facility: [facility] Address: [address] [place] [address] Performed By: #### 2 4323-8 ####[facility] LABCLIA [id number] [place] [address] [place] Protein [Mass/Vol] 6.8 g/dL Normal 6.3-8.0 [facility] Comment on above: Order Comment: Speci men Type: BLOOD SPECIMENOrdering Facility: [facility] Address: [address] [place] [address] Performed By: #### 2 4323-8 ####[facility] LABCLIA [id number] [place] [address] [place] Sodium [Moles/Vol] 137 mmol/L Normal 136-144 [facility] Comment on above: Order Comment: Speci men Type: BLOOD SPECIMENOrdering Facility: [facility] Address: [address] [place] [address] Performed By: #### 2 4323-8 ####[facility] LABCLIA [id number] [place] [address] [place] Urea nitrogen [Mass/Vol] 44 mg/dL High 9-24 [facility] Comment on above: Order Comment: Speci men Type: BLOOD SPECIMENOrdering Facility: [facility] Address: [address] [place] [address] Performed By: #### 2 4323-8 ####[facility] LABCLIA [id number] [place] [address] [place] [facility] ED NOTEon 02-01-2025 ED NOTE HNO ID: [id number] Author: HORTENSIA RIOS, RN Service: Nursing Author Type: Registered Nurse Type: ED Notes Filed: 02/01/2025 15:42 Note Text: Transport here at this time, report given to accepting hospital. has taken patients belongings. [facility] ED NOTE HNO ID: [id number] Author: HORTENSIA RIOS, JOANN Service: Nursing Author Type: Registered Nurse Type: ED Notes Filed: 02/01/2025 15:15 Note Text: Approximately 1200 cc urine out after lasix . [facility] ED NOTE HNO ID: [id number] Author: HORTENSIA RIOS RN Service: Nursing Author Type: Registered Nurse Type: ED Notes Filed: 02/01/2025 11:26 Note Text: Presently in CT. [facility] ED NOTE HNO ID: [id number] Author: BRAN DUPREE RN Service: ? Author Type: Registered Nurse Type: ED Notes Filed: 02/01/2025 09:47 Note Text: Pt to ED for SOB since this morning. [facility] ED PROV NOTEon 02-01-2025 ED PROV NOTE HNO ID: [id number] Author: SHERRI WEATHERS DO Service: Emergency Medicine Author Type: Physician Type: ED Provider Notes Filed: 02/01/2025 14:30 Note Text: ED Provider Note Patient Name: Alisa Hagan : 1950 SERVICE DATE: 02/01/25 History Patient presents with: Shortness of Breath 74-year-old male with a history of PE, CHF with reported EF of 25% on most recent echo done at outside facility presents with shortness of breath. States that yesterday started having some worsening shortness of breath with exertion. This morning woke up gasping for air. Has been taking his Lasix. Was seen at his cardiology office and was advised come to the emergency department to be seen, likely admitted for further diuresis. He states that he has been compliant with his Eliquis. Cardiology team also stated that they were discussing doing a heart cath on him but he was hesitant due to history of PEs. 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 on chronic Coumadin,managed by pcp Hyperlipidemia 07/08/2017 LBBB (left bundle branch block) 07/08/2017 Orthostasis Other acute embolism veins 11/2008 left leg Other pulmonary embolism and infarction 1998 Other specified disorder of gallbladder Presence of IVC filter Pulmonary HTN (HCC) Recurrent pulmonary emboli (HCC) Renal mass, right S/p nephrectomy S/P Difficult robotic radical nephrectomy on the right Sinus pause SOB (shortness of breath) 07/08/2017 PAST SURGICAL HISTORY Procedure Laterality Date CARDIOVERSION 09/12/2020 Successful conversion from atrial fibrillation to atrial paced rhythm, by Dr. Horan at [facility] CARDIOVERSION 02/04/2021 Successful conversion from atrial fibrillation to sinus rhythm, by Dr. Horan at [facility] CC PCI CORONARY INTERVENT 2018 CT ANGIOGRAPHY CHEST 11/30/2016 w/contrast ECHO TRANSESOPHAG CONGEN PROBE [facility] I[facility] 01/02/2021 EF 55%, +LAKSHMI thrombus, +PFO ECHO TRANSESOPHAG CONGEN PROBE [facility] IANDR 02/04/2021 EF 50%, mildly dilated RV, moderately dilated LA, no LAKSHMI thrombus, no PFO ECHOCARDIOGRAM 01/04/2006 [facility] EKG 12 LEAD 04/23/2011 [facility] EVENT MONITOR 07/08/2017 24 hour LAPS SURG CHOLECYSTECTOMY W/CHOLANGIOGRAPHY 04/21/2009 PACEMAKER IMPLANT Left 07/22/2020 Dual chamber, [employer], MRI compatible 6 weeks after implantm by Dr. Horan at [facility] PAST SURGICAL HISTORY OF Right kidney removal May 2022 STRESS TEST 03/11/2006 [facility] WENDY (TRANSESOPHAGEAL ECHO) 11/30/2016 [facility] DO TONSILLECTOMY PRIMARY/SECONDARY AGE 12/> FAMILY HISTORY Problem Relation Age of Onset Arthritis Mother Cancer Mother Blood Disease Father clotting factor Diabetes Father Seizures Father Blood Disease Sister clotting factor DVT Sister Blood Disease Brother clotting ffactor DVT Brother Social History Tobacco Use Smoking status: Never Smokeless tobacco: Never Vaping Use Vaping status: Never Used Substance and Sexual Activity Alcohol use: No Drug use: No Sexual activity: Not on file ALLERGIES No Known Allergies Review of Systems Constitutional: Negative for chills and fever. Respiratory: Positive for shortness of breath. Negative for cough. Cardiovascular: Negative for chest pain. Gastrointestinal: Negative for nausea and vomiting. Genitourinary: Negative for dysuria. Skin: Negative for rash and wound. Physical Exam Vitals [02/01/25 0947] BP Pulse Temp Temp src Resp SpO2 Weight Height 145/104 (!) 97 36.2 ?C (97.2 ?F) Temporal 18 97 % 116.1 kg (256 lb) -- Physical Exam Vitals and nursing note reviewed. Constitutional: General: He is not in acute distress. Appearance: Normal appearance. He is not ill-appearing. HENT: Head: Normocephalic and atraumatic. Cardiovascular: Rate and Rhythm: Normal rate and regular rhythm. Pulmonary: Effort: Pulmonary effort is normal. No respiratory distress. Comments: Diminished, tachypneic, slight conversational dyspnea Abdominal: General: There is no distension. Musculoskeletal: General: No deformity. Comments: +1 edema to bilateral lower extremities Neurological: General: No focal deficit present. Mental Status: He is alert. Mental status is at baseline. Diagnostic Testing ED Labs Ordered and Reviewed COMPREHENSIVE METABOLIC PANEL - Abnormal; Notable for the following components: Result Value Ref Range Bilirubin, Total 1.5 (*) 0.2 - 1.3 mg/dL Glucose 139 (*) 74 - 99 mg/dL BUN 44 (*) 9 - 24 mg/dL Creatinine 1.94 (*) 0.73 - 1.22 mg/dL Anion Gap 7 (*) 8 - 15 mmol/L Estimated Glomerular Filtration Rate 36 (*) >=60 mL/min/1.73m? (more content not included)... Normal [facility] EKGon 02-01-2025 Electrocardiogram Ventricular Rate : 9 3 BPM QRS Duration : 162 ms Q-T Interval : 420 ms QTC Calculation(Bazett) : 522 ms Calculated R Achille : -10 degrees Calculated T Achille : 104 degrees ATRIAL FIBRILLATION LEFT BUNDLE BRANCH BLOCK ABNORMAL ECG WHEN COMPARED WITH ECG OF 26-Jun-2022 09:37, QRS DURATION HAS INCREASED NONSPECIFIC T WAVE ABNORMALITY NO LONGER EVIDENT IN INFERIOR LEADS Confirmed by JOE AVELAR MD ([id number]) on 02/01/2025 11:05:17 AM NAME : ALISA HAGAN PID : [id number] : 1950 Gender : Male Race : ORD : Procedure Date : Feb 01 2025 09:53:06 Edit Date : Feb 01 2025 11:05:19 Diagnosis: ATRIAL FIBRILLATION LEFT BUNDLE BRANCH BLOCK ABNORMAL ECG WHEN COMPARED WITH ECG OF 26-Jun-2022 09:37, QRS DURATION HAS INCREASED NONSPECIFIC T WAVE ABNORMALITY NO LONGER EVIDENT IN INFERIOR LEADS Confirmed by JOE AVELAR MD ([id number]) on 02/01/2025 11:05:17 AM Test Reason : Location : 148 : [facility] ED Overread By : JOE AVELAR MD Edited By : JOE AVELAR MD Referred By : , Acquired by : LESTER COLEMAN [facility] HIGH SENSITIVITY TROPONIN Io n 02-01-2025 Tropinin I.cardiac panel High sensitivity method 8.3 pg/mL Normal <=20.7 [facility] Comment on above: Order Comment: Speci men Type: BLOOD SPECIMEN [facility] Address: [address] [place] [address] Performed By: #### H STROP #### [facility] CLIA [id number] [address] [place] [address] [place] HISTORY PHYSICALon HISTORY PHYSICAL HNO ID: [id number] Author: HALI REARDON MD Service: Hospital Medicine Author Type: Physician Type: H&P Filed: 02/01/2025 18:32 Note Text: HISTORY AND PHYSICAL EXAMINATION DEPARTMENT OF HOSPITAL MEDICINE SERVICE DATE: 02/01/2025 PRIMARY CARE PHYSICIAN: Smitha Ray IV, DO NIGHT AND WEEKEND COVERAGE: From 7am - 7pm, please call Sound Attending After 7pm, please call cross cover pager #[phone] Subjective CHIEF COMPLAINT: Exertional dyspnea HPI: Very pleasant 74-year-old gentleman with history of solitary kidney secondary to renal cell cancer status post nephrectomy, stage III chronic kidney disease, type 2 diabetes mellitus, persistent atrial fibrillation, obesity BMI 37, acute on chronic systolic congestive heart failure left ventricular ejection fraction 25% transferred from [place] ED for acute on chronic congestive heart failure after presenting there with exertional dyspnea that started yesterday. Maintains compliance to medications and low-sodium/fluid restricted diet. Does not do daily weights. He notes that Dr. Jaeger has wanted him to do a left heart cath but he is concerned due to his PE history and contrast use. Denies chest pain, lightheadedness, nausea. Not hypoxic. 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 Horan at [facility] CARDIOVERSION 02/04/2021 Successful conversion from atrial fibrillation to sinus rhythm, by Dr. Horan at [facility] CC PCI CORONARY INTERVENT 2018 CT ANGIOGRAPHY CHEST 11/30/2016 w/contrast ECHO [facility]AG [facility] 01/[facility]21 EF 55%, +LAKSHMI thrombus, +PFO ECHO TRANSESOPHAG CONGEN PROBE [facility] IANDR 02/04/2021 EF 50%, mildly dilated RV, moderately dilated LA, no LAKSHMI thrombus, no PFO ECHOCARDIOGRAM 01/04/2006 [facility] EKG 12 LEAD 04/23/2011 [facility] EVENT MONITOR 07/08/2017 24 hour LAPS SURG CHOLECYSTECTOMY W/CHOLANGIOGRAPHY 04/21/2009 PACEMAKER IMPLANT Left 07/22/2020 Dual chamber, [employer], MRI compatible 6 weeks after implantm by Dr. Horan at [facility] PAST SURGICAL HISTORY OF Right kidney removal May 2022 STRESS TEST 03/11/2006 [facility] WENDY (TRANSESOPHAGEAL ECHO) 11/30/2016 [facility] DO TONSILLECTOMY PRIMARY/SECONDARY AGE 12/> FAMILY HISTORY Problem Relation Age of Onset Arthritis Mother Cancer Mother Blood Disease Father clotting factor Diabetes Father Seizures Father Blood Disease Sister clotting factor DVT Sister Blood Disease Brother clotting ffactor DVT Brother Social History Tobacco Use Smoking status: Never Smokeless tobacco: Never Vaping Use Vaping status: Never Used Substance Use Topics Alcohol use: No Drug use: No ELIQUIS 5 mg tab(s), Take 5 mg by mouth two times a day., Disp: , Rfl: , 02/01/2025 buPROPion XL (WELLBUTRIN XL) 150 mg 24 hr tablet, two times a day., Disp: , Rfl: , 01/31/2025 metoprolol succinate ER (TOPROL XL) 25 mg 24 hr tablet, Take 50 mg by mouth two times a day., Disp: , Rfl: , 02/01/2025 calcium carbonate (CALTRATE) 600 mg calcium (1,500 mg) tab, Take 600 mg by mouth two times a day., Disp: , Rfl: , Taking atorvastatin (LIPITOR) 40 mg tablet, Take 40 mg by mouth once daily., Disp: , Rfl: , 02/01/2025 sildenafil (REVATIO) 20 mg tablet, Take 1 tablet by mouth two times a day., Disp: 60 tablet, Rfl: 5, 01/31/2025 furosemide (LASIX) 40 mg tablet, Take 40 mg by mouth once daily., Disp: , Rfl: , 02/01/2025 finasteride (PROSCAR) 5 mg tablet, Take 5 mg by mouth every evening., Disp: , Rfl: , 02/01/2025 aspirin, enteric coated (ECOTRIN LOW STRENGTH) 81 mg EC tablet, Take 1 tablet by mouth once daily., Disp: , Rfl: , 02/01/2025 cholecalciferol (VITAMIN D3) 50 mcg (2,000 unit) tablet, Take 2,000 Units by mouth twice daily. , Disp: , Rfl: , 02/01/2025 escitalopram 20 mg tablet, Take 20 mg by mouth once daily., Disp: , Rfl: , 02/01/2025 OLANZapine (ZYPREXA) 5 mg tablet, Take 5 mg by mouth daily at bedtime., Disp: , Rfl: fluticasone (FLONASE) 50 mcg/actuation n (more content not included)... Normal [facility] HbA1c (Bld)on 02-01-2025 Average glucose Estimated from glycated hemoglobin (Bld) [Mass/Vol] 151 mg/dL Normal [facility] Comment on above: Order Comment: [facility] Type: BLOOD SPECIMENOrdering Facility: [facility] Address: [address] [place] [address] Result Comment: eAG: (Estimated average glucose) is a calculated value from HgbA1c and is sales representative gas service of the average blood glucose level in the last 2-3 month period. Performed By: #### 5 5454-3 ####[facility] LABCLIA [id number] [place] [address] [place] HbA1c (Bld) [Mass fraction] 6.9 % High 4.3-5.6 [facility] Comment on above: Order Comment: [facility] Type: BLOOD SPECIMENOrdering Facility: [facility] Address: [address] [place] [address] Result Comment: Amer [place] Diabetes Association guidelines indicate that patients with HgbA1c in the range 5.7-6.4% are at increased risk for development of diabetes, and intervention by lifestyle modification may be beneficial. HgbA1c greater or equal to 6.5% is considered diagnostic of diabetes. Performed By: #### 5 5454-3 ####[facility] LABCLIA [id number] [place] [address] [place] Natriuretic peptide B [Mass/ Vol]on 02-01-2025 Natriuretic peptide B (Bld) [Mass/Vol] 852 pg/mL High <=100 [facility] Comment on above: Order Comment: [facility] Type: BLOOD SPECIMEN Order[facility] Address: [address] [place] [address] Result Comment: New methodology (BNP)/new testing platform; please note change in reference range. Performed By: #### 3 4528-0, 90641-4 #### [facility] CLIA [id number] [address] [place] [address] [place] PT panel Coag (PPP)on 2024 INR Coag (PPP) [Relative time] 1.2 {INR} Normal 0.9-1.3 [facility] Comment on above: Order Comment: Speci men Type: BLOOD SPECIMEN Ordering [facility]: [facility] Address: [address] [place] [address] Result Comment: Fabiola min K Antagonist (VKA) Therapeutic Range: INR 2 to 3 (Target INR of 2.5) Note: For patients treated with VKA drugs, such as warfarin, the [employer] 2012 Guideline recommends a therapeutic INR range of 2 to 3 (target INR of 2.5). This recommendation includes high-risk patients with antiphospholipid syndrome with previous arterial or venous thromboembolism, current-generation mechanical or bioprosthetic aortic heart valve replacement. Note: Patients with mechanical aortic valve replacement and additional risk factors for thromboembolic events (atrial fibrillation, previous thromboembolism, LV dysfunction, hypercoagulable conditions) or an older generation mechanical AVR (i.e., ball in-Cage) or any mechanical MVR should have a INR therapeutic range of 2.5 to 3.5 (target INR of 3). Genaro GH, et al. Chest 2012, 141:7S-47S Parris RA et al. [facility] 2017, 70: 252-289 Performed By: #### 3 4528-0, 37810-7 #### [facility] CLIA [id number] [address] [place] PT Coag (PPP) [Time] 11.8 s Normal <13.1 [facility] Comment on above: Order Comment: Speci men Type: BLOOD SPECIMEN Ordering [facility] Address: [address] [id number] Performed By: #### 3 4528-0, 07969-9 #### [facility] CLIA [id number] [address] [place] [address] [place] US KIDNEY/BLADDERon 02-02-20 25 US KIDNEY/BLADDER * * *Final Report* * * DATE OF EXAM: Feb 01 2025 8:24PM [facility] 1055 - US KIDNEY/BLADDER / PROCEDURE REASON: Kidney failure, acute * * * * Physician Interpretation * * * * EXAMINATION: RENAL ULTRASOUND CLINICAL HISTORY: Acute renal insufficiency. TECHNIQUE: Sonography of the kidneys and urinary bladder was performed. Images were obtained and stored in a permanent archive. MQ: UR_1 COMPARISON: MRI examination of the abdomen with and without contrast dated 06/14/2023. CT examination of the abdomen and pelvis without contrast dated 09/29/2022. RESULT: Right Kidney: Right kidney not visualized, compatible previous nephrectomy. Indeterminate hypoechoic foci at the right renal fossa, measuring up to 7.1 x 5.6 x 6.7 cm. Left Kidney: -Renal length: 14.0 cm -Parenchyma: Normal parenchymal echogenicity. Normal parenchymal thickness. -Collecting system: No hydronephrosis. -Calculus: No echogenic, shadowing calculus. -Lesion: Again demonstrated are scattered partially exophytic renal parenchymal cysts, largest measures up to 2.8 x 2.7 x 2.7 cm at the inferior pole. Bladder: Partially distended and otherwise unremarkable. IMPRESSION: Again noted are postsurgical changes from previous right nephrectomy. Indeterminate hypoechoic foci at the right renal fossa, possibly representing previously demonstrated fluid/soft tissue on CT examination dated 09/29/2022 and MRI examination of the the abdomen dated 06/14/2023. If clinical concern, would consider further characterization with dedicated CT examination of the abdomen with contrast. No left-sided stone or hydroureteronephrosis. Patient Accounts Specialist: MURTAZA Transcribe Date/Time: Feb 02 2025 11:29A Dictated by : ALONZO ROMERO MD This examination was interpreted and the report reviewed and electronically signed by: ALONZO ROMERO MD on Feb 02 2025 11:35AM EST [id number] Normal [facility] Urinalysis complete panel (U )on 02-01-2025 Bilirubin Ql (U) Negative Normal Negative [facility] Comment on above: Order Comment: Speci men Type: BLOOD SPECIMEN [facility]ing [facility] Address: [address] [place] [address] Performed By: #### 3 4528-0, 02442-7 #### [facility] CLIA [id number] [address] [place] Clarity (Unsp spec) Clear Normal Clear [facility] Comment on above: Order Comment: Speci men Type: BLOOD SPECIMEN Ordering Facility[facility] Address: [address] [place] [address] Performed By: #### 3 4528-0, 34818-4 #### [facility] CLIA [id number] [address] Color (U) Colorless Normal yellow [facility] Comment on above: Order Comment: Speci men Type: BLOOD SPECIMEN [facility] [facility] Address: [address] [place] [address] Performed By: #### 3 4528-0, 37233-7 #### [facility] CLIA [id number] [address] Glucose Test strip (U) [Mass/Vol] Negative Normal Trace, Negative [facility] Comment on above: Order Comment: Speci men Type: BLOOD SPECIMEN Ordering Facility: [facility] Address: [address] [place] [address] Performed By: #### 3 4528-0, 18151-5 #### [facility] CLIA [id number] [address] Hemoglobin Ql (U) Negative Normal Negative, Trace [facility] Comment on above: Order Comment: Speci men Type: BLOOD SPECIMEN Ordering Facility: [facility] Address: [address] [place] [address] Performed By: #### 3 4528-0, 74685-5 #### [facility] CLIA [id number] [address] Ketones Ql (U) Negative Normal Negative, Trace [facility] Comment on above: Order Comment: Speci men Type: BLOOD SPECIMEN Ordering Facility: [facility] Address: [address] [place] [address] Performed By: #### 3 4528-0, 24229-4 #### [facility] CLIA [id number] [address] Leukocyte esterase Test strip Ql (U) Negative Normal Negative, 25 Puja/uL [facility] Comment on above: Order Comment: Speci men Type: BLOOD SPECIMEN Ordering Facility: [facility] Address: [address] [place] [address] Performed By: #### 3 4528-0, 90744-5 #### [facility] CLIA [id number] [address] [place] Nitrite Ql (U) Negative Normal Negative [facility] Comment on above: Order Comment: Speci men Type: BLOOD SPECIMEN Ordering Facility: [facility] Address: [address] [place] [address] Performed By: #### 3 4528-0, 36602-9 #### [facility] CLIA [id number] [address] pH (U) 6.0 [pH] Normal 5.0-8.0 [facility] Comment on above: Order Comment: Speci men Type: BLOOD SPECIMEN Ordering Facility: [facility] Address: [address] [place] [address] Performed By: #### 3 4528-0, 12558-5 #### [facility] CLIA [id number] [address] Protein (U) [Mass/Vol] Negative Normal Trace, Negative [facility] Comment on above: Order Comment: Speci men Type: BLOOD SPECIMEN Ordering Facility: [facility] Address: [address] [place] [address] Performed By: #### 3 4528-0, 52342-5 #### [facility] CLIA [id number] [address] RBC LM.HPF (Urine sed) [#/Area] 0-3 /HPF Normal 0-3 /HPF [facility] Comment on above: Order Comment: Speci men Type: BLOOD SPECIMEN Ordering Facility: [facility] Address: [address] [place], [place] [address] Performed By: #### 3 4528-0, 74960-0 #### [facility] CLIA [id number] [address] Specific gravity (U) [Rel density] 1.015 Normal 1.005-1.030 [facility] Comment on above: Order Comment: Speci men Type: BLOOD SPECIMEN Ordering Facility: [facility] Address: [address] [place] [address] Performed By: #### 3 4528-0, 96236-5 #### [facility] CLIA [id number] [address] [place] Urobilinogen Ql (U) Normal Normal Normal [facility] Comment on above: Order Comment: Speci men Type: BLOOD SPECIMEN Ordering Facility: [facility] Address: [address] [place] [address] Performed By: #### 3 4528-0, 41163-1 #### [facility] CLIA [id number] [address] WBC LM.HPF (Urine sed) [#/Area] 0-5 /HPF Normal 0-5 /HPF [facility] Comment on above: Order Comment: Speci men Type: BLOOD SPECIMEN Ordering Facility: [facility] Address: [address] [place] [address] Performed By: #### 3 4528-0, 88724-3 #### [facility] CLIA [id number] [address] [place] XR CHEST 1V FRONTALon 2024 XR CHEST 1V FRONTAL * * *Final Report* * * DATE OF EXAM: Feb 01 2025 10:18PM AKX [id number] - XR CHEST 1V FRONTAL / PROCEDURE REASON: Shortness of breath * * * * Physician Interpretation * * * * EXAMINATION: CHEST RADIOGRAPH (SINGLE VIEW AP OR PA) CLINICAL HISTORY: Shortness of breath MQ: XC1_5 Comparison: Chest radiograph 08/31/[address] 02/01/2025 RESULT: Lines, tubes, and devices: LEFT subclavian pacemaker redemonstrated. Lungs and pleura: Numerous calcified granulomas in the lungs. Low lung volumes with hazy bibasilar opacities. No pleural effusion or pneumothorax Cardiomediastinal silhouette: Cardiac silhouette is not enlarged Other: No acute osseous findings IMPRESSION: Low lung volumes with hazy bibasilar opacities which may represent atelectasis or infection depending on the clinical context. Patient Accounts Specialist: PSCB Transcribe Date/Time: Feb 01 2025 11:19P Dictated by : IRVIN MORALES MD This examination was interpreted and the report reviewed and electronically signed by: IRVIN MORALES MD on Feb 01 2025 11:32PM EST [id number] Normal [facility] CNOVon 01-14-2025 CNOV Office Visit (CARDWS ) ----- ALISA HAGAN ([id number]) 1950 M Date Time Provider Department 01/14/25 3:00 PM AURE JAEGER During your visit today, we recorded the following information about you: Pulse Respiration Blood pressure Weight 100/minute 14/minute 126/70 113.7 kg Height 1.753 m Aure Jaeger MD 01/14/2025 4:28 PM Signed [facility] Cardiology ([facility]) [address] [facility] [id number] OUTPATIENT VISIT DATE 01/14/2025 PRIMARY CARE PHYSICIAN: [place] [address] REFERRING PHYSICIAN: No referring provider defined for this encounter. CHIEF COMPLAINT: Chest pain dyspnea on exertion HISTORY OF PRESENT ILLNESS: Mr. Hagan is a 74 year old gentleman with a history of coronary artery disease prior stenting of the diagonal branch in April 2018, persistent atrial fibrillation, cardiomyopathy, hypertension, dyslipidemia who is here to establish new cardiology follow-up. He has been seeing electrophysiology group at [place] for the past few years. He had failed cardioversion and was not interested in undergoing A-fib ablation. He had a recent hospital admission to [facility] for chest pain. He underwent a stress test and echocardiogram. He reports that his ejection fraction is dropped from a baseline of 45% down to 25-30%. He complains of worsening shortness of breath, fatigue, and dyspnea on exertion. He has not had symptoms concerning for congestive heart failure including PND, orthopnea, lower extremity edema. He denies palpitations, lightheadedness, dizziness, or syncope. 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 on chronic Coumadin,managed by pcp Hyperlipidemia 07/08/2017 LBBB (left bundle branch block) 07/08/2017 Orthostasis Other acute embolism veins 11/2008 left leg Other pulmonary embolism and infarction 1998 Other specified disorder of gallbladder Presence of IVC filter Pulmonary HTN (HCC) Recurrent pulmonary emboli (HCC) Renal mass, right S/p nephrectomy S/P Difficult robotic radical nephrectomy on the right Sinus pause SOB (shortness of breath) 07/08/2017 PAST SURGICAL HISTORY Procedure Laterality Date CARDIOVERSION 09/12/2020 Successful conversion from atrial fibrillation to atrial paced rhythm, by Dr. Horan at [facility] CARDIOVERSION 02/04/2021 Successful conversion from atrial fibrillation to sinus rhythm, by Dr. Horan at [facility] CC PCI CORONARY INTERVENT 2018 CT ANGIOGRAPHY CHEST 11/30/2016 w/contrast ECHO TRANSESOPHAG CONGEN PROBE [facility] I[facility] 01/02/2021 EF 55%, +LAKSHMI thrombus, +PFO ECHO TRANSESOPHAG CONGEN PROBE [facility] IANDR 02/04/2021 EF 50%, mildly dilated RV, moderately dilated LA, no LAKSHMI thrombus, no PFO ECHOCARDIOGRAM 01/04/2006 [facility] EKG 12 LEAD 04/23/2011 [facility] EVENT MONITOR 07/08/2017 24 hour LAPS SURG CHOLECYSTECTOMY W/CHOLANGIOGRAPHY 04/21/2009 PACEMAKER IMPLANT Left 07/22/2020 Dual chamber, [employer], MRI compatible 6 weeks after implantm by Dr. Horan at [facility] PAST SURGICAL HISTORY OF Right kidney removal May 2022 STRESS TEST 03/11/2006 [facility] WENDY (TRANSESOPHAGEAL ECHO) 11/30/2016 [facility]/Payton Hastings DO TONSILLECTOMY PRIMARY/SECONDARY AGE 14/> SOCIAL HISTORY Social History Tobacco Use Smoking status: Never Smokeless tobacco: Never Vaping Use Vaping status: Never Used Substance Use Topics Alcohol use: No Drug use: No FAMILY HISTORY Problem Relation Age of Onset Arthritis Mother Cancer Mother Blood Disease Father clotting factor Diabetes Father Seizures Father Blood Disease Sister clotting factor DVT Sister Blood Disease Brother clotting ffactor DVT Brother ALLERGIES: ALLERGIES No Known Allergies MEDICATIONS: OLANZapine (ZYPREXA) 5 mg tablet Take 5 mg by mouth daily at bedtime. fluticasone (FLONASE) 50 mcg/actuation nasal spray Use 2 Sprays in each nostril once daily. Rinse mouth after use. ELIQUIS 5 mg tab(s) Take 5 mg by mouth two times a day. buPROPion XL (WELLBUTRIN XL) 150 mg 24 hr tablet two times a day. metoprolol succinate ER (TOPROL XL) 25 mg 24 hr tablet Take 50 mg by mouth two times a day. atorvastatin (LIPITOR) 40 mg tablet Take 40 mg by mouth once daily. sildenafil (REVATIO) 20 mg tablet Take 1 tablet by mouth two times a day. furosemide (LASIX) 40 mg tablet Take 40 mg by mouth once daily. finasteride (PROSCAR) 5 mg t (more content not included)... Normal [facility] CNOVon 01-04-2025 CNOV Office Visit (K[facility]OR [facility]AR[facility]) ----- ALISA HAGAN ([id number]) 1950 M Date Time Provider Department 01/04/25 9:00 AM NAVEEN NINO During your visit today, we recorded the following information about you: Pulse Respiration Blood pressure Weight 69/minute 18/minute 122/82 112.9 kg Height 1.753 m Fang Shell MA 01/04/2025 1:16 PM Signed Patient complains of sob,chest pains, palpitations. Naveen Nino APRN.CNP 01/04/2025 1:16 PM Signed [facility] Cardiology Electrophysiology PRIMARY CARE PHYSICIAN: Smitha Ray IV [address] [place] [address] CHIEF COMPLAINT: Cardiovascular medicine follow-up for arrhythmia and pacemaker. HISTORY OF PRESENT ILLNESS: Mr. Hagan is a 74 year old male who presents today for follow-up regarding arrhythmia and pacemaker. The patient has a past medical history significant for coronary disease, pulmonary hypertension, persistent atrial fibrillation, obesity with a BMI of 37, left bundle branch block, and multiple pulmonary embolisms. He is on chronic anticoagulation and has a suspected hypercoagulable state. He has at least a 5-year history of persistent atrial fibrillation, managed with rate control and anticoagulation, and has never underwent a cardioversion. He reported occasional dizziness, fatigue, low energy, and exertional dyspnea. He was last seen by Dr. Horan in July 2023, where an ECG showed atrial fibrillation with a ventricular rate of 80 BPM, and LBBB. [employer] dual chamber pacemaker previously implanted 07/22/2020. Catheter ablation was inquired about at that appointment. Diagnostic Results: - Event Monitor: Demonstrated pauses. - 30-day Event Monitor: Showed ongoing atrial fibrillation with mostly controlled ventricular rates, but pauses up to 3.8 seconds. - WENDY (December 2021): Showed left atrial appendage thrombus. - Repeat WENDY (January 2022): Showed resolution of thrombus and sinus rhythm was restored. - ECG (July 2023): Showed ventricular fibrillation, atrial fibrillation with a ventricular rate of 80 BPM, and LBBB. - DLCO on PFT (2017): Mildly reduced. History of Primary Diagnosis: - 2019: Underwent PCI/stent placement. - 07/22/2020: Dual chamber pacemaker implanted by Dr. Horan. - Post-implantation: Developed sustained atrial fibrillation. - December 2021: WENDY showed left atrial appendage thrombus. - January 2022: Repeat WENDY showed resolution of thrombus and sinus rhythm was restored. - February 2022: Atrial fibrillation recurred. - Shortly thereafter: Developed renal cell malignancy, underwent nephrectomy, had bilateral pulmonary emboli, and an IVC filter was placed. - August 2022: Underwent WENDY-guided DC cardioversion with atrial fibrillation recurrence less than a day later. Items for Follow-Up Today: - Recommended PFTs and if DLCO not significantly reduced, start amiodarone load, followed by cardioversion. Interval History: The patient is a 74-year-old male with a history of CAD, status post PCI/stent in 2018, pulmonary hypertension, persistent atrial fibrillation, obesity (BMI 36), LBBB, and multiple DVTs and PEs, presenting for evaluation of lightheadedness, fatigue, and exertional dyspnea. The patient reports a longstanding history of feeling like floating and lightheadedness, without true dizziness. He also experiences fatigue, low energy, and exertional dyspnea. He denies palpitations, syncope, or falls. He notes occasional wheezing when short of breath. He reports a significant episode of chest pain about a week ago, which has since improved, he was hospitalized at [facility] and underwent an echocardiogram and stress test at that time. He observes that his left leg is larger than the right due to previous DVTs, but denies any bleeding issues, such as hematuria, melena, or epistaxis. He denies any recent illnesses, fevers, or chills. He has a history of persistent atrial fibrillation managed with rate control and anticoagulation. He has experienced at least five episodes of PE and is on chronic anticoagulation. He previously had an IVC filter that was later removed. He wore an event monitor, which demonstrated pauses, leading to a referral to Dr. Horan. A 30-day event monitor showed ongoing atrial fibrillation with mostly controlled ventricular rates but pauses up to 3.8 seconds. He received a dual-chamber pacemaker on 07/22/2020, followed by DC cardioversion a few weeks later. Following cardioversion, he developed sustained atrial fibrillation. A WENDY in December 2021 showed left atrial appendage thrombus, which resolved on repeat WENDY a month later, restoring sinus rhythm. Atrial fibrillation recurred about a month later. He then developed renal cell carcinoma, underwent nephrectomy, and had bilateral PE (more content not included)... Normal [facility] ECG B/O W INTERP (MED OFFICE )on 01-04-2025 atrial fibrillation with frequent ventricular paced complexes, LBBB, 70 bpm, QRS 160 ms, QT/QTc 482/[address] [facility] CNOVon 01-03-2025 CNOV Office Visit ([facility] ) ----- ALISA HAGAN ([id number]) 1950 Date Time Provider Department 01/03/25 10:30 AM JESENIA ARZATE [facility] During your visit today, we recorded the following information about you: Temperature Pulse Respiration Blood pressure 96 degrees 101/minute 18/minute 137/92 Weight Height 114 kg 1.753 m Jesenia Azrate, SEASONAL CLERK.ELECTRIC ARC WELDER 01/03/2025 2:49 PM Signed ESTABLISHED PATIENT FOLLOW-UP SERVICE DATE: 01/01/2025 PRIMARY CARE PHYSICIAN: Smitha Ray IV, DO SUBJECTIVE CHIEF COMPLAINT: Shortness of breath after heart attack Follows with Dr Frias for pulmonary hypertension on sildenafil, H/O PE (06/16/22) and suspected EZIO , ZANE 06/23/2023 PMH: persistent atrial fib (on coumadin) follows with Dr Sparks, back pain, Renal cell carcinoma, S/P right nephrectomy with hemorrhage 04/2022, CKD stage 3, Obesity BMI 37.02, DM II, antiphospholipid antibody, depression, Alisa is a 74-year-old male with a history of pulmonary hypertension and atrial fibrillation, presenting for follow-up after a recent hospitalization for acute on chronic heart failure. Hospital follow up Patient's history of hospitalization is vague. He thinks he was told he had a heart attack. Does not know what tests were done or results. Brings in discharge paperwork with medication adjustments. Diagnosis was for A/C heart failure. States he went to ED for chest pain and shortness of breath States that he has had persistent floating sensation x6-8 months. Lightheadedness when standing. States his PCP had stopped his diltiazem, then his metoprolol a week or so prior to hospitalization. His discharge summary Had him increase his Lasix to 40 mg daily from 20 mg daily. His diltiazem was restarted, metoprolol was restarted and increased to 50 mg daily from 25 mg. Medication timing was staggered, to avoid possible BP lows. States he still has the lightheadedness/Floating sensation without improvement with the medication changes. Still with dyspnea. Occasional sweating episodes. Occasional non-productive cough No longer with chest pain. Has an appointment with Dr Sparks tomorrow. Persistent atrial fibrillation; history of two cardioversions. - Recent switch from Coumadin to Eliquis last summer due to unstable INR levels. Pulmonary Hypertension: - Managed with sildenafil 20 mg BID x3-4 years. - Last echo reportedly showed good control of pulmonary hypertension with RVSP 30. Never smoked. IVC filter removed 08/09/2023 Immunizations reviewed. Influenza, Prevnar 20 05/2023 are up to date. 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 on chronic Coumadin,managed by pcp Hyperlipidemia 07/08/2017 LBBB (left bundle branch block) 07/08/2017 Orthostasis Other acute embolism veins 11/2008 left leg Other pulmonary embolism and infarction 1998 Other specified disorder of gallbladder Presence of IVC filter Pulmonary HTN (HCC) Recurrent pulmonary emboli (HCC) Renal mass, right S/p nephrectomy S/P Difficult robotic radical nephrectomy on the right Sinus pause SOB (shortness of breath) 07/08/2017 SOCIAL HISTORY: Social History Tobacco Use Smoking status: Never Smokeless tobacco: Never Vaping Use Vaping status: Never Used Substance Use Topics Alcohol use: No Drug use: No MEDICATIONS: Prior to Admission Medications fluticasone (FLONASE) 50 mcg/actuation nasal spray Use 2 Sprays in each nostril once daily. Rinse mouth after use. ELIQUIS 5 mg tab(s) buPROPion XL (WELLBUTRIN XL) 150 mg 24 hr tablet two times a day. metoprolol succinate ER (TOPROL XL) 25 mg 24 hr tablet calcium carbonate (CALTRATE) 600 mg calcium (1,500 mg) tab Take 600 mg by mouth. calcitonin,salmon, (MIACALCIN) 200 unit/actuation nasal spray Inhale as instructed. (Patient not taking: Reported on 12/20/2023) dilTIAZem CD (CARDIZEM CD, CARTIA XT) 180 mg 24 hr capsule Take 1 capsule by mouth once daily. atorvastatin (LIPITOR) 40 mg tablet Take 40 mg by mouth once daily. sildenafil (REVATIO) 20 mg tablet Take 1 tablet by mouth two times a day. furosemide (LASIX) 40 mg tablet Take 40 mg by mouth once daily. finasteride (PROSCAR) 5 mg tablet Take 5 mg by mouth every evening. atorvastatin (LIPITOR) 80 mg tablet Take 0.5 tablets by mouth once daily. aspirin, enteric coated (ECOTRIN LOW STRENGTH) 81 mg EC tablet Take 1 tablet by mouth once daily. cholecalciferol (VITAMIN D3) 50 mcg (2,000 unit) tablet Take 2,000 Units by mouth twice daily. escitalopram 20 mg tablet Take 20 mg by mouth once daily. CURRENT ALLERGIES: Patient has no known allerg (more content not included)... Normal [facility] Basic Metabolic Profile (BMP )on 12-31-2024 BUN/CRE 20.6 RATIO High 10-20 [facility] Comment on above: Performed By: #### L 499.0042 #### [facility] [address] [place], [address] Calcium [Mass/Vol] 8.8 mg/dL Normal 7.6-11.0 [facility] Comment on above: Performed By: #### L 499.0042 #### [facility] [address] [place], [address] Chloride [Moles/Vol] 104 mmol/L Normal 98-108 [facility] Comment on above: Performed By: #### L 499.0042 #### [facility] [address] [place], [address] CO2 [Moles/Vol] 19.7 mmol/L Low 21.0-32.0 [facility] Comment on above: Performed By: #### L 499.0042 #### [facility] [address] [place], [address] Creatinine [Mass/Vol] 1.88 mg/dL High 0.70-1.20 [facility] Comment on above: Performed By: #### L 499.0042 #### [facility] [address] [place], [address] ECRCL 44.22 ml/min Low 50-250 [facility] Comment on above: Performed By: #### L 499.0042 #### [facility] [address] [place], [address] GAP 13 Normal 5-15 [facility] Comment on above: Performed By: #### L 499.0042 #### [facility] [address] [place], [address] GFR/1.73 sq M.predicted among non-blacks MDRD (S/P/Bld) [Vol rate/Area] 37 mL/min/{1.73_m2} Low >60 [facility] Comment on above: Result Comment: mL/m in/1.73m2 CKD-EPI Creatinine Equation (2020) Performed By: #### L 499.0042 #### [facility] [address] [place], [address] Glucose [Mass/Vol] 115 mg/dL High 70-99 [facility] Comment on above: Performed By: #### L 499.0042 #### [facility] [address] [place], [address] Potassium [Moles/Vol] 4.5 mmol/L Normal 3.3-5.1 [facility] Comment on above: Performed By: #### L 499.0042 #### [facility] [address] [place], [address] Sodium [Moles/Vol] 136 mmol/L Normal 133-145 [facility] Comment on above: Performed By: #### L 499.0042 #### [facility] [address] [place], [address] Urea nitrogen [Mass/Vol] 39 mg/dL High 4-19 [facility] Comment on above: Performed By: #### L 499.0042 #### [facility] [address] [place], [address] CBC-Complete Blood Cnt No Di ffon 12-31-2024 Erythrocyte distribution width (RBC) [Ratio] 13.8 % Normal 11.6-14.6 [facility] Comment on above: Performed By: #### L 499.0042 #### [facility] [address] [place], [address] Hematocrit (Bld) [Volume fraction] 42.1 % Normal 40-54 [facility] Comment on above: Performed By: #### L 499.0042 #### [facility] [address] [place], [address] Hemoglobin (Bld) [Mass/Vol] 14.1 g/dL Normal 13.0-16.5 [facility] Comment on above: Performed By: #### L 499.0042 #### [facility] [address] [place], [address] MCH (RBC) [Entitic mass] 30.2 pg Normal 27.0-32.0 [facility] Comment on above: Performed By: #### L 499.0042 #### [facility] [address] [place], [address] MCHC (RBC) [Mass/Vol] 33.5 g/dL Normal 32-36 [facility] Comment on above: Performed By: #### L 499.0042 #### [facility] [address] [place], [address] MCV (RBC) [Entitic vol] 90.1 fL Normal 80-94 [facility] Comment on above: Performed By: #### L 499.0042 #### [facility] [address] [place], [address] Platelet mean volume (Bld) [Entitic vol] 10.0 fL Normal 6.2-12.0 [facility] Comment on above: Performed By: #### L 499.0042 #### [facility] [address] [place], [address] Platelets (Bld) [#/Vol] 174 10*3/uL Normal 150-450 [facility] Comment on above: Performed By: #### L 499.0042 #### [facility] [address] [place], [address] RBC (Bld) [#/Vol] 4.67 10*6/uL Normal 4.6-6.2 [facility] Comment on above: Performed By: #### L 499.0042 #### [facility] [address] [place], [address] RDW SD 45.2 fl High 35.1-43.9 [facility] Comment on above: Performed By: #### L 499.0042 #### [facility] [address] [place], [address] WBC (Bld) [#/Vol] 9.8 10*3/uL Normal 4.4-11.0 [facility] Comment on above: Performed By: #### L 499.0042 #### [facility] [address] [place], [address] Consultation - Cardiologyon 12-31-2024 Consultation - Cardiology [facility] Medical Records Department [address] [place] [address] Consultation - Cardiology 12/31/24 0850 MR#: [id number] Acct: [id number] Name: ALISA HAGAN Rep #: [id number] : 1950 74 From: Smitha Read MD PCP: Dr. Smitha Ray, DO Status:ADM IN Location: [place] [address] Assessment Plan Assessment/Plan (1) Atrial fibrillation: QUALIFIERS: Atrial fibrillation type: persistent (not longstanding) Qualified Code(s): I48.19 - Other persistent atrial fibrillation PLAN: Patient carries a history of chronic atrial fibrillation. He does have a permanent pacemaker implanted through the [facility]. We do not have previous ECGs here. He is being evaluated with a 2D echocardiogram. It appears that some of his symptoms were precipitated by medication changes in ambulatory setting. He will be reinstituted on his metoprolol. He is also on diltiazem. The diltiazem is currently on hold. (2) Chest pain: QUALIFIERS: Chest pain type: unspecified Qualified Code(s): R07.9 - Chest pain, unspecified PLAN: Patient complains of some chest discomfort. This started after his metoprolol was discontinued. He is not currently complaining of any he does have a minimal bump in his enzymes to the mid 60s. These have been unchanged despite no recurrence of his symptoms. He does have a left bundle branch block on his resting ECG. Will obtain a pharmacologic nuclear stress test to rule out active ischemia. The patient does have known coronary disease status post remote stenting. Previous invasive evaluations were carried out at [facility]. (3) Pacemaker: PLAN: Patient's pacemaker is monitored through the [facility]. He sees Dr. Dennis PLAN: Plan 1. Will obtain 2D echocardiogram and pharmacologic nuclear stress test. 2. Further recommendations to follow. HPI Consult Data Date of Consult: 12/31/24 HPI Narrative Reason for Consultation: Atrial fibrillation with rapid ventricular response. HPI Narrative: ALISA HAGAN, is a 74 M who presents with a history of chronic atrial fibrillation on Eliquis and rate control with metoprolol. The patient was recently evaluated by his primary care physician due to a floating symptom. He has medications were adjusted including stopping his metoprolol. Once that was done the patient developed chest discomfort and palpitations. He reinstituted his metoprolol on 12/28/2024 and his symptoms resolved. They recurred on Tuesday and he came to the emergency department. The patient carries a history of atrial fibrillation his telemetry has shown atrial fibs with heart rates in 90-95 bpm. He also has a history of chronic kidney disease and coronary artery disease status post remote stenting. He states 1 stent was placed on the backside of his heart but there were 2 other lesions that could not be addressed due to bifurcating lesions. He also has a history of a permanent pacemaker implanted at [facility] in June 2020. There is no prior history of him being evaluated here at [place] from a cardiovascular standpoint. The patient's ECG shows atrial fibrillation at 116 bpm with a left bundle branch block on presentation. Troponins were minimally elevated at 63, 64, and 63. The patient is resting comfortably and asymptomatic in his chair. 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 Creatinine is 1.9. [facility] Medical History (Updated 12/31/24 @ 09:[address] Smitha Read MD) Pulmonary embolism Blood clot in leg Coronary stent patent Pacemaker Cancer of right kidney A-fib Home Medications ???Medication ???Instructions ???Recorded ???Last Taken ???Type apixaban 5 mg tablet (Eliquis) 5 mg PO BID 12/29/24 12/29/24 Hist ory aspirin 81 mg tablet,delayed 81 mg PO QHS 12/29/24 12/28/24 His tory release (Adult Aspirin Regimen) atorvastatin 40 mg tablet 40 mg PO QHS 12/29/24 12/28/24 His tory bupropion HCl 150 mg 24 hr tablet, 300 mg PO QHS 12/29/24 12/28/24 History extended release calcium carbonate 600 mg PO BID 12/29/24 12/29/24 Hi story cholecalciferol (vitamin D3) 50 50 mcg PO BID 12/29/24 12/29/24 Hi story mcg (2,000 unit) tablet (D3 DOTS) diltiazem HCl 180 mg 180 mg PO DAILY 12/29/24 Unknown H istory capsule,extended release 24 hr Held on 12/29/24. Instructions: Ordered escitalopram oxalate 20 mg tablet 20 mg PO QHS 12/29/24 12/28/24 Hi story finasteride 5 mg tablet 5 mg PO DAILY 12/29/24 12/29/24 Hi story furosemide 20 mg tablet 20 mg PO DAILY 12/29/24 12/29/24 H istory metoprolol succinate 25 mg 25 mg PO BID 12/29/24 12/29/24 His tory tablet,extended release 24 hr olopatadine 0.1 % eye drops (Eye 1 drp EACH EYE DAILY 12/29/24 Unkn own History Allergy Itch-Redness Relief) sildenaf (more content not included)... Normal [facility] Discharge Instructionon Discharge Instruction [facility] Medical Records Department [address] [place] [address] Instructions for Home/Discharge Instructions 12/31/24 1453 MR#: [id number] Acct: [id number] Name: ALISA HAGAN Rep #: [id number] : 1950 74 From: Alex Castellano MD PCP: Dr. Smitha Ray, DO Status:ADM IN Discharge Instructions Diet Discharge Diet: Low fat / Low cholesterol and 2000 mg Sodium Diet DC O2, CPAP, BIPAP needs Home O2 Discharge instructions: No Dressing / Incision Discharge Activity: Return to Normal Activity Weight Bearing Status: Weight bearing as tolerated Dressing / Incision Call your doctor if you observe: Fever of 101 or Higher, Coldness, Increased Pain, Numbness or Tingling, Change in Color, Inability to urinate, Inability to have a bowel movement, Shortness of breath, Dizziness, Fainting spells, Swelling in the ankles, Chest pain, Prolonged hiccupping, Increased palpitations (irregular heartbeat) and Calf discomfort Follow Up Care When: IN 2 WEEKS Test Results: Test results from this visit will be discussed in further detail at your follow-up appointment, if applicable. Discharge Plan Admission Admit Date/Time: 12/29/24 18:43 Primary Reason for Your Visit: Acute on chronic heart failure Attending Provider: Alex Castellano Primary Care Provider: Smitha Ray Consulting Providers: Jayme Ross; Danny Iqbal; Latrell Avery Instructions Additional Instructions / Restrictions: Follow-up with own import clerk in [facility] Dr. Bro in 2 weeks Discharge Orders/Prescriptions Prescriptions: New furosemide 40 mg tablet 40 mg PO DAILY 30 Days Qty: 30 2RF Continued atorvastatin 40 mg tablet 40 mg PO QHS Eliquis 5 mg tablet 5 mg PO BID escitalopram oxalate 20 mg tablet 20 mg PO QHS calcium carbonate 600 mg calcium (1,500 mg) tablet 600 mg PO BID aspirin [Adult Aspirin Regimen] 81 mg tablet,delayed release (DR/EC) 81 mg PO QHS finasteride 5 mg tablet 5 mg PO DAILY bupropion HCl 150 mg tablet extended release 24 hr 300 mg PO QHS cholecalciferol (vitamin D3) [D3 DOTS] 50 mcg (2,000 unit) tablet 50 mcg PO BID olopatadine [Eye Allergy Itch-Redness Rlf] 0.1 % drops 1 drp EACH EYE DAILY Patient Comments: PT DOES IF HE REMEMBERS Changed diltiazem HCl 180 mg capsule,extended release 24hr 180 mg PO BREAKFAST 30 Days Qty: 0 0RF metoprolol succinate 25 mg tablet extended release 24 hr 50 mg PO BID 30 Days Qty: 0 0RF sildenafil (pulm.hypertension) 20 mg tablet 40 mg PO LUNCH 30 Days Qty: 0 0RF Discontinued furosemide 20 mg tablet 20 mg PO DAILY Referrals / Follow Up: Smitha Ray DO [Primary Care Provider] - Within 2 Weeks Disposition Disposition (needs filled in before D/C Order can be placed): Home, Self Care 12/31/24 1513 Alex Castellano MD CC: Dr. Latrell Avery DO; Dr. Jayme Ross MD; Dr. Smitha Ray DO; Dr. Danny Iqbal MD Signed Normal [facility] Stress Reporton 12-31-2024 Stress Report [facility] Cardiovascular Services [address] [place] [id number] MR#: [id number] Acct: [id number] Name: ALISA HAGAN Rep #: [id number] : 1950 74 From: Pilar Rogers MD Primary Care: Dr. Smitha Ray DO Status: ADM IN Referring Dr: Sex: Scottie C Stress Test Report Date: 12/31/2024 Procedure: Pharmacologic stress nuclear imaging study Indications: Chest pain Consent: Per the patient Procedure: The patient underwent pharmacologic (Regadenoson 0.4mg ) evaluation with a peak heart rate of 108 beats per minute (72%predicted maximal heart rate) and a peak blood pressure of 142/86 mmHg. The baseline ECG demonstrated atrial fibrillation with left bundle branch block. The peak pharmacologic ECG was nondiagnostic secondary to baseline abnormality. Baseline atrial fibrillation. No ventricular arrhythmias noted. There was no complaint of chest discomfort during pharmacologic infusion or recovery. The patient was injected with 14.8 millicuries of technetium 99m Cardiolite and subsequently rest SPECT Cardiolite nuclear imaging was obtained in the horizontal long, vertical long, and short axis views. The patient underwent pharmacologic (Regadenoson) evaluation. The patient was injected with 44.3 millicuries of technetium 99m Cardiolite and subsequently stress SPECT Cardiolite nuclear imaging was obtained in the horizontal long, vertical long, and short axis views. A gated Cardiolite study at peak stress was obtained. The examination was stopped secondary to completion of protocol. Rest and stress SPECT Cardiolite nuclear imaging status post realignment, normalization, and attenuation correction demonstrate mild to moderately reduced perfusion of the septum and distal anterior wall which is fixed. This could represent artifact secondary to underlying left bundle branch block versus prior nontransmural infarct. No reversible ischemia noted. The gated study shows generalized hypokinesis. The reported LVEF is 29%. Impression: 1. Pharmacologic (Regadenoson) evaluation 2. Peak pharmacologic ECG with no diagnostic changes secondary to baseline abnormality. 3. Baseline atrial fibrillation.. 5. Fixed septal and mid to distal anterior hypoperfusion suggestive of previous nontransmural infarct versus artifact secondary to left bundle branch block. No reversible changes noted. 6. The gated Cardiolite study reports an LVEF of 29%. This note was generated with [employer] software. It may contain incorrect words, spelling, and punctuation that were not noted in checking the note before signing. 12/31/24 1139 Date Pilar Rogers MD CC: Dr. Latrell Avery DO; Dr. Lazaro Ramirez DO; Dr. Jayme Ross MD; Dr. Smitha Ray DO; Dr. Danny Iqbal MD; Dr. Alex Castellano MD Date Dictated: 12/31/241135 Date Transcribed: 12/31/241135 Patient Accounts Specialist: AR Signed Normal [facility] Basic Metabolic Profile (BMP )on 12-30-2024 BUN/CRE 18.6 RATIO Normal 10-20 [facility] Comment on above: Performed By: #### L 499.0042 #### [facility] [address] [place], [address] Calcium [Mass/Vol] 8.8 mg/dL Normal 7.6-11.0 [facility] Comment on above: Performed By: #### L 499.0042 #### [facility] [address] [place], [address] Chloride [Moles/Vol] 103 mmol/L Normal 98-108 [facility] Comment on above: Performed By: #### L 499.0042 #### [facility] [address] [place], [address] CO2 [Moles/Vol] 20.9 mmol/L Low 21.0-32.0 [facility] Comment on above: Performed By: #### L 499.0042 #### [facility] [address] [place], [address] Creatinine [Mass/Vol] 1.91 mg/dL High 0.70-1.20 [facility] Comment on above: Performed By: #### L 499.0042 #### [facility] [address] [place], [address] ECRCL 43.52 ml/min Low 50-250 [facility] Comment on above: Performed By: #### L 499.0042 #### [facility] [address] [place], [address] GAP 11 Normal 5-15 [facility] Comment on above: Performed By: #### L 499.0042 #### [facility] [address] [place], [address] GFR/1.73 sq M.predicted among non-blacks MDRD (S/P/Bld) [Vol rate/Area] 37 mL/min/{1.73_m2} Low >60 [facility] Comment on above: Result Comment: mL/m in/1.73m2 CKD-EPI Creatinine Equation (2020) Performed By: #### L 499.0042 #### [facility] [address] [place], [address] Glucose [Mass/Vol] 126 mg/dL High 70-99 [facility] Comment on above: Performed By: #### L 499.0042 #### [facility] [address] [place], [address] Potassium [Moles/Vol] 4.5 mmol/L Normal 3.3-5.1 [facility] Comment on above: Performed By: #### L 499.0042 #### [facility] [address] [place], [address] Sodium [Moles/Vol] 135 mmol/L Normal 133-145 [facility] Comment on above: Performed By: #### L 499.0042 #### [facility] [address] [place], [address] Urea nitrogen [Mass/Vol] 36 mg/dL High 4-19 [facility] Comment on above: Performed By: #### L 499.0042 #### [facility] [address] [place], [address] CBC W/Diff, Automatedon 05-0 -2024 Absolute Lymph 1.11 X10 3/uL Normal 0.83-4.51 [facility] Comment on above: Performed By: #### L 100.0100, L500.2500 #### [facility] [address] [place], [address] Absolute Neut 8.3 X10 3/uL High 2.0-7.7 [facility] Comment on above: Performed By: #### L 100.0100, L500.2500 #### [facility] [address] [place], [address] Basophils/100 WBC (Bld) 0.3 % Normal 0-1 [facility] Comment on above: Performed By: #### L 100.0100, L500.2500 #### [facility] [address] [place], [address] Eosinophils/100 WBC (Bld) 1.3 % Normal 0-5 [facility] Comment on above: Performed By: #### L 100.0100, L500.2500 #### [facility] [address] [place], [address] Erythrocyte distribution width (RBC) [Ratio] 14.1 % Normal 11.6-14.6 [facility] Comment on above: Performed By: #### L 100.0100, L500.2500 #### [facility] [address] [place], [address] Hematocrit (Bld) [Volume fraction] 43.7 % Normal 40-54 [facility] Comment on above: Performed By: #### L 100.0100, L500.2500 #### [facility] [address] [place], [address] Hemoglobin (Bld) [Mass/Vol] 14.4 g/dL Normal 13.0-16.5 [facility] Comment on above: Performed By: #### L 100.0100, L500.2500 #### [facility] [address] [place], [address] IG% 0.400 Normal 0.0-0.9 [facility] Comment on above: Result Comment: IG% - Immature Granulocytes (promyelocytes, myelocytes and metamyelocytes) > 1% indicates that a LEFT SHIFT is Present. Performed By: #### L 100.0100, L500.2500 #### [facility] [address] [place], [address] Lymphocytes/100 WBC (Bld) 10.3 % Low 19-41 [facility] Comment on above: Performed By: #### L 100.0100, L500.2500 #### [facility] [address] [place], [address] MCH (RBC) [Entitic mass] 29.9 pg Normal 27.0-32.0 [facility] Comment on above: Performed By: #### L 100.0100, L500.2500 #### [facility] [address] [place], [address] MCHC (RBC) [Mass/Vol] 33.0 g/dL Normal 32-36 [facility] Comment on above: Performed By: #### L 100.0100, L500.2500 #### [facility] [address] [place], [address] MCV (RBC) [Entitic vol] 90.7 fL Normal 80-94 [facility] Comment on above: Performed By: #### L 100.0100, L500.2500 #### [facility] [address] [place], [address] Monocytes/100 WBC (Bld) 11.0 % High 0-10 [facility] Comment on above: Performed By: #### L 100.0100, L500.2500 #### [facility] [address] [place], [address] Neutrophils/100 WBC (Bld) 76.7 % High 47-70 [facility] Comment on above: Performed By: #### L 100.0100, L500.2500 #### [facility] [address] [place], [address] Nucleated RBC (Bld) [#/Vol] 0 10*3/uL Normal 0-5 [facility] Comment on above: Performed By: #### L 100.0100, L500.2500 #### [facility] [address] [place], [address] Platelet mean volume (Bld) [Entitic vol] 9.6 fL Normal 6.2-12.0 [facility] Comment on above: Performed By: #### L 100.0100, L500.2500 #### [facility] [address] [place], [address] Platelets (Bld) [#/Vol] 169 10*3/uL Normal 150-450 [facility] Comment on above: Performed By: #### L 100.0100, L500.2500 #### [facility] [address] [place], [address] RBC (Bld) [#/Vol] 4.82 10*6/uL Normal 4.6-6.2 [facility] Comment on above: Performed By: #### L 100.0100, L500.2500 #### [facility] [address] [place], [address] RDW SD 46.5 fl High 35.1-43.9 [facility] Comment on above: Performed By: #### L 100.0100, L500.2500 #### [facility] [address] [place], [address] WBC (Bld) [#/Vol] 10.8 10*3/uL Normal 4.4-11.0 [facility] Comment on above: Performed By: #### L 100.0100, L500.2500 #### [facility] [address] [place], [address] 12 Lead EKGon 12-29-2024 12 Lead EKG [facility] Cardiovascular Services [address] [place] [address] 12 Lead EKG 12/29/24 1620 MR#: [id number] Acct: [id number] Name: ALISA HAGAN Rep #: [id number] : 1950 74 From: Smitha Read MD Attending Dr: Dr. Alex Castellano MD Status: DIS IN Ordering Dr: Lazaro Ramirez DO Date: 12/29/24 Location: [facility] Sex: M C Admitted: 12/29/24 Test Reason : CP Blood Pressure : */* mmHG Vent. Rate : 116 BPM Atrial Rate : * BPM P-R Int : * ms QRS Dur : 150 ms QT Int : 366 ms P-R-T Axes : * 10 112 degrees QTcB Int : 508 ms Atrial fibrillation /flutter with RVR Left bundle branch block Abnormal ECG Confirmed by Smitha Read ([id number]), photographic editor DOUG PACK ([id number]) on 01/04/2025 12:59:58 PM Referred By: Confirmed By: Smitha Read 01/04/25 1300 Date Smitha Read MD CC: Dr. Lazaro Ramirez DO; Dr. Smitha Ray DO; Dr. Alex Castellano MD Signed Normal [facility] Basic Metabolic Profile (BMP )on 12-29-2024 BUN/CRE 19.3 RATIO Normal 10-20 [facility] Comment on above: Performed By: #### L 100.0100, L500.2500, L300.8000, L300.3900, L501.4021, L300.4310 #### [facility] [address] [place], [address] Calcium [Mass/Vol] 9.0 mg/dL Normal 7.6-11.0 [facility] Comment on above: Performed By: #### L 100.0100, L500.2500, L300.8000, L300.3900, L501.4021, L300.4310 #### [facility] [address] [place], [address] Chloride [Moles/Vol] 104 mmol/L Normal 98-108 [facility] Comment on above: Performed By: #### L 100.0100, L500.2500, L300.8000, L300.3900, L501.4021, L300.4310 #### [facility] [address] [place], [address] CO2 [Moles/Vol] 21.3 mmol/L Normal 21.0-32.0 [facility] Comment on above: Performed By: #### L 100.0100, L500.2500, L300.8000, L300.3900, L501.4021, L300.4310 #### [facility] [address] [place], [address] Creatinine [Mass/Vol] 2.01 mg/dL High 0.70-1.20 [facility] Comment on above: Performed By: #### L 100.0100, L500.2500, L300.8000, L300.3900, L501.4021, L300.4310 #### [facility] [address] [place], [address] ECRCL 42.41 ml/min Low 50-250 [facility] Comment on above: Performed By: #### L 100.0100, L500.2500, L300.8000, L300.3900, L501.4021, L300.4310 #### [facility] [address] [place], [address] GAP 11 Normal 5-15 [facility] Comment on above: Performed By: #### L 100.0100, L500.2500, L300.8000, L300.3900, L501.4021, L300.4310 #### [facility] [address] [place], [address] GFR/1.73 sq M.predicted among non-blacks MDRD (S/P/Bld) [Vol rate/Area] 35 mL/min/{1.73_m2} Low >60 [facility] Comment on above: Result Comment: mL/m in/1.73m2 CKD-EPI Creatinine Equation (2020) Performed By: #### L 100.0100, L500.2500, L300.8000, L300.3900, L501.4021, L300.4310 #### [facility] [address] [place], [address] Glucose [Mass/Vol] 160 mg/dL High 70-99 [facility] Comment on above: Performed By: #### L 100.0100, L500.2500, L300.8000, L300.3900, L501.4021, L300.4310 #### [facility] [address] [place], [address] Potassium [Moles/Vol] 4.5 mmol/L Normal 3.3-5.1 [facility] Comment on above: Performed By: #### L 100.0100, L500.2500, L300.8000, L300.3900, L501.4021, L300.4310 #### [facility] [address] [place], [address] Sodium [Moles/Vol] 136 mmol/L Normal 133-145 [facility] Comment on above: Performed By: #### L 100.0100, L500.2500, L300.8000, L300.3900, L501.4021, L300.4310 #### [facility] [address] [place], [address] Urea nitrogen [Mass/Vol] 39 mg/dL High 4-19 [facility] Comment on above: Performed By: #### L 100.0100, L500.2500, L300.8000, L300.3900, L501.4021, L300.4310 #### [facility] [address] [place], [address] CBC W/Diff, Automatedon 05-0 3-2025 Absolute Lymph 1.29 X10 3/uL Normal 0.83-4.51 [facility] Comment on above: Performed By: #### L 100.0100, L500.2500, L300.8000, L300.3900, L501.4021, L300.4310 #### [facility] [address] [place], [address] Absolute Neut 8.7 X10 3/uL High 2.0-7.7 [facility] Comment on above: Performed By: #### L 100.0100, L500.2500, L300.8000, L300.3900, L501.4021, L300.4310 #### [facility] [address] [place], [address] Basophils/100 WBC (Bld) 0.3 % Normal 0-1 [facility] Comment on above: Performed By: #### L 100.0100, L500.2500, L300.8000, L300.3900, L501.4021, L300.4310 #### [facility] [address] [place], [address] Eosinophils/100 WBC (Bld) 0.9 % Normal 0-5 [facility] Comment on above: Performed By: #### L 100.0100, L500.2500, L300.8000, L300.3900, L501.4021, L300.4310 #### [facility] [address] [place], [address] Erythrocyte distribution width (RBC) [Ratio] 14.0 % Normal 11.6-14.6 [facility] Comment on above: Performed By: #### L 100.0100, L500.2500, L300.8000, L300.3900, L501.4021, L300.4310 #### [facility] [address] [place], [address] Hematocrit (Bld) [Volume fraction] 44.2 % Normal 40-54 [facility] Comment on above: Performed By: #### L 100.0100, L500.2500, L300.8000, L300.3900, L501.4021, L300.4310 #### [facility] [address] [place], [address] Hemoglobin (Bld) [Mass/Vol] 14.8 g/dL Normal 13.0-16.5 [facility] Comment on above: Performed By: #### L 100.0100, L500.2500, L300.8000, L300.3900, L501.4021, L300.4310 #### [facility] [address] [place], [address] IG% 0.400 Normal 0.0-0.9 [facility] Comment on above: Result Comment: IG% - Immature Granulocytes (promyelocytes, myelocytes and metamyelocytes) > 1% indicates that a LEFT SHIFT is Present. Performed By: #### L 100.0100, L500.2500, L300.8000, L300.3900, L501.4021, L300.4310 #### [facility] [address] [place], [address] Lymphocytes/100 WBC (Bld) 11.4 % Low 19-41 [facility] Comment on above: Performed By: #### L 100.0100, L500.2500, L300.8000, L300.3900, L501.4021, L300.4310 #### [facility] [address] [place], [address] MCH (RBC) [Entitic mass] 30.2 pg Normal 27.0-32.0 [facility] Comment on above: Performed By: #### L 100.0100, L500.2500, L300.8000, L300.3900, L501.4021, L300.4310 #### [facility] [address] [place], [address] MCHC (RBC) [Mass/Vol] 33.5 g/dL Normal 32-36 [facility] Comment on above: Performed By: #### L 100.0100, L500.2500, L300.8000, L300.3900, L501.4021, L300.4310 #### [facility] [address] [place], [address] MCV (RBC) [Entitic vol] 90.2 fL Normal 80-94 [facility] Comment on above: Performed By: #### L 100.0100, L500.2500, L300.8000, L300.3900, L501.4021, L300.4310 #### [facility] [address] [place], [address] Monocytes/100 WBC (Bld) 10.7 % High 0-10 [facility] Comment on above: Performed By: #### L 100.0100, L500.2500, L300.8000, L300.3900, L501.4021, L300.4310 #### [facility] [address] [place], [address] Neutrophils/100 WBC (Bld) 76.3 % High 47-70 [facility] Comment on above: Performed By: #### L 100.0100, L500.2500, L300.8000, L300.3900, L501.4021, L300.4310 #### [facility] [address] [place], [address] Nucleated RBC (Bld) [#/Vol] 0 10*3/uL Normal 0-5 [facility] Comment on above: Performed By: #### L 100.0100, L500.2500, L300.8000, L300.3900, L501.4021, L300.4310 #### [facility] [address] [place], [address] Platelet mean volume (Bld) [Entitic vol] 9.7 fL Normal 6.2-12.0 [facility] Comment on above: Performed By: #### L 100.0100, L500.2500, L300.8000, L300.3900, L501.4021, L300.4310 #### [facility] [address] [place], [address] Platelets (Bld) [#/Vol] 181 10*3/uL Normal 150-450 [facility] Comment on above: Performed By: #### L 100.0100, L500.2500, L300.8000, L300.3900, L501.4021, L300.4310 #### [facility] [address] [place], [address] RBC (Bld) [#/Vol] 4.90 10*6/uL Normal 4.6-6.2 [facility] Comment on above: Performed By: #### L 100.0100, L500.2500, L300.8000, L300.3900, L501.4021, L300.4310 #### [facility] [address] [place], [address] RDW SD 45.9 fl High 35.1-43.9 [facility] Comment on above: Performed By: #### L 100.0100, L500.2500, L300.8000, L300.3900, L501.4021, L300.4310 #### [facility] [address] [place], [address] WBC (Bld) [#/Vol] 11.4 10*3/uL High 4.4-11.0 [facility] Comment on above: Performed By: #### L 100.0100, L500.2500, L300.8000, L300.3900, L501.4021, L300.4310 #### [facility] [address] [place], [address] Chest 1 View (Portable)on Chest 1 View (Portable) [facility] Imaging Services [address] [place], [place] [id number] Chest 1 View (Portable) MR#: [id number] Acct: [id number] Name: ALISA HAGAN Rep #: [id number] : 1950 M 74 From: Pablo hankins MD PCP: Dr. Smitha Ray DO Status: REG ER Study: Chest 1 View (Portable) Date of Exam: 12/29/24 Exam# [id number] Ordering Dr: Lazaro Ramirez DO PROCEDURE: CHEST 1 VIEW (PORTABLE) 12/29/2024 REASON FOR EXAM: CHEST PAIN TECHNIQUE: Frontal view of the chest. COMPARISON: None FINDINGS: Hardware: Left-sided ICD. Heart: Heart size is mildly enlarged. Lungs: Mild bibasilar atelectasis. No pneumothorax. No large pleural effusion. No focal consolidation. Bones: The bones are unremarkable. Other: RAD/Chest 1 View (Portable) IMPRESSION: Mild bibasilar atelectasis. Otherwise, no acute findings. [facility] CC: Dr. Lazaro Ramirez DO; Dr. Smitha Ray DO Patient Accounts Specialist: Signed Normal [facility] D-Dimer Quantitative (DVT/PE )on 12-29-2024 D-DIMER QUANT < 0.27 Low 0.27-0.49 [facility] Comment on above: Result Comment: NORM AL D-Dimer level (<0.50) indicates no DVT or PE. Performed By: #### L 100.0100, L500.2500, L300.8000, L300.3900, L501.4021, L300.4310 #### [facility] [address] [place], [place], [id number] Echo Completeon 12-29-2024 Echo Complete [facility] [address] [place] [address] Echo Complete 12/31/24 1032 MR#: [id number] Acct: [id number] Name: ALISA HAGAN Rep #: [id number] : 1950 74 From: Pilar Rogers MD Attending Dr: Dr. Alex Castellano MD Status: DIS IN Ordering Dr: Danny Iqbal MD Date: 12/29/24 Location: [facility] Sex: M C Admitted: 12/29/24 Reason For Study Reason For Study: AFIB Procedure This was a 2D Doppler, Color Flow transthoracic echocardiogram. The study was technically difficult. Contrast deferred due to single kidney. Exam performed in department. Left Ventricle Normal left ventricular thickness. Severe generalized LV hypokinesis. Estimated LVEF 25 to 30%. Right Ventricle Normal RV size. ICD or pacer leads identified within the right ventricle. Mild to moderate global right ventricular systolic dysfunction. Atria The left atrium is severely enlarged. The right atrium is mildly enlarged. ICD or pacer leads identified within the right atrium. Mitral Valve Moderate (2+) mitral valve insufficiency. Tricuspid Valve Mild tricuspid valve insufficiency. Right ventricular systolic pressure estimated to be 63 mmHg. Pulmonic Valve The pulmonic valve is not well visualized. Great Vessels Normal sized aortic root. Pericardium/Pleural No pericardial effusion. MMode/2D Measurements Calculations LVIDd: 5.8 cm LVPWd: 0.84 cm LVOT diam: 2.0 cm LVOT area: 3.2 cm2 Ao root diam: 3.1 cm LAV(MOD-bp): 76.8 ml LA A4 area: 20.0 cm2 LAV(MOD-bp) Indexed: 33.7 ml/m2 LAV(MOD-sp2): 87.6 ml LAV(MOD-sp4): 59.3 ml LA dimension(2D): 4.6 cm RA A4 area: 20.0 cm2 Doppler Measurements Calculations MV E max zhanna: 108.8 cm/sec Ao V2 max: 115.4 cm/sec LV V1 max: 80.5 cm/sec Ao max P.3 mmHg LV V1 max P.6 mmHg Ao V2 mean: 90.4 cm/sec LV V1 mean P.6 mmHg Ao mean P.5 mmHg LV V1 mean: 60.3 cm/sec Ao V2 VTI: 20.0 cm LV V1 VTI: 12.1 cm AV (velocity ratio): 0.60 KATYA(I,D): 1.9 cm2 KATYA(V,D): 2.2 cm2 SV(LVOT): 38.0 ml PA V2 max: 82.5 cm/sec TR max zhanna: 349.1 cm/sec PA V2 mean: 48.3 cm/sec TR max P.7 mmHg ECHO/Echo Complete Interpretation Summary Severe generalized LV hypokinesis. Estimated LVEF 25 to 30%. Mild to moderate global right ventricular systolic dysfunction. The left atrium is severely enlarged. The right atrium is mildly enlarged. Moderate (2+) mitral valve insufficiency. Mild tricuspid valve insufficiency. Right ventricular systolic pressure estimated to be 63 mmHg. The study was technically difficult. ___ Ordering Physician: Danny Iqbal Referring Physician: SMITHA GARZA Performed By: Xenia Rangel RCS 12/31/24 1230 Date Pilar Rogers MD CC: Dr. Smitha Ray DO; Dr. Danny Iqbal MD; Dr. Alex Castellano MD Date Dictated: 12/31/24 1032 Date Transcribed: 12/31/24 1230 Patient Accounts Specialist: Signed Normal [facility] Emergency Department Summary on 12-29-2024 Emergency Department Summary [facility] Medical Records Department [address] [place] [address] Emergency Department Summary 12/29/24 MR#: [id number] Acct: [id number] Name: ALISA HAGAN Rep #: [id number] : 1950 74 From: Lazaro Ramirez DO PCP: Dr. Smitha Ray DO Status:ADM IN Location: [address] History of Present Illness Chief Complaint: Chest Pain Informant: patient Onset/Context/Timing Onset: Yesterday Activity at onset: gradual Timing: Continuous Quality: Positive for Pressure and Tightness Location: Substernal, Right Parasternal, Left Parasternal, Right Chest and Left Chest Worsened By: Exertion Relieved By: Nothing Associated Symptoms: Positive for Diaphoresis, Dyspnea, Cough and Lightheadedness; Negative for Nausea, Vomiting, Fever, Acid Reflux or Palpitations Narrative Narrative: Patient presents with chest pain and shortness of breath that began yesterday. Patient states that has been constant since yesterday. Patient states that it came on gradually. Patient states it is diffuse across the chest. Patient states it is worse with any exertion. Patient states nothing seems to help with it. Patient admits to a cough and shortness of breath. Patient also admits to some diaphoresis last night. Patient states he feels lightheaded. Patient denies any fevers or chills. Patient denies any nausea or vomiting. Patient states his pain feels somewhat similar to prior pulmonary embolus. CVD Risk Factors: Positive for Hypertension; Negative for Diabetes, Hypercholesterolemia, Family History 1' PE Risk Factors: Positive for Prior DVT or PE and Cancer; Negative for Recent Travel/Surgery, Recent Immobilization or OCP + Smoking + >/=35 PFSH PFSH Medical History Pulmonary embolism Blood clot in leg Coronary stent patent Pacemaker Cancer of right kidney A-fib Home Medications ???Medication ???Instructions ???Recorded ???Last Taken ???Type apixaban 5 mg tablet (Eliquis) 5 mg PO BID 12/29/24 12/29/24 Hist ory aspirin 81 mg tablet,delayed 81 mg PO QHS 12/29/24 12/28/24 His tory release (Adult Aspirin Regimen) atorvastatin 40 mg tablet 40 mg PO QHS 12/29/24 12/28/24 His tory bupropion HCl 150 mg 24 hr tablet, 300 mg PO QHS 12/29/24 12/28/24 History extended release calcium carbonate 600 mg PO BID 12/29/24 12/29/24 Hi story cholecalciferol (vitamin D3) 50 50 mcg PO BID 12/29/24 12/29/24 Hi story mcg (2,000 unit) tablet (D3 DOTS) diltiazem HCl 180 mg 180 mg PO DAILY 12/29/24 Unknown H istory capsule,extended release 24 hr Held on 12/29/24. Instructions: MD Ordered escitalopram oxalate 20 mg tablet 20 mg PO QHS 12/29/24 12/28/24 Hi story finasteride 5 mg tablet 5 mg PO DAILY 12/29/24 12/29/24 Hi story furosemide 20 mg tablet 20 mg PO DAILY 12/29/24 12/29/24 H istory metoprolol succinate 25 mg 25 mg PO BID 12/29/24 12/29/24 His tory tablet,extended release 24 hr olopatadine 0.1 % eye drops (Eye 1 drp EACH EYE DAILY 12/29/24 Unkn own History Allergy Itch-Redness Relief) sildenafil (pulm.hypertension) 20 40 mg PO DAILY 12/29/24 Unknown H istory mg tablet Held on 12/29/24. Instructions: MD Ordered Allergy/AdvReac Type Severity Reaction Status Date / Time No Known Allergies Allergy Verified 12/29/24 16:10 Surgical History S/P insertion of IVC (inferior vena caval) filter History of right nephrectomy Hx of tonsillectomy Hx of cholecystectomy Social History Smoking Status: Never smoker ROS ROS ED Constitutional Constitutional ED: Denies chills or fever(s) Eyes Eyes: Denies blurry vision or change in vision ENT ENT ED: Denies rhinorrhea or sore throat Cardiovascular Cardiovascular: Reports as per HPI and chest pain; Denies palpitations Respiratory/Chest Respiratory/Chest: Reports cough and dyspnea Gastrointestinal Gastrointestinal: Denies nausea or vomiting Genitourinary Genitourinary ED: Denies dysuria or hematuria Musculoskeletal Musculoskeletal: Reports back pain; Denies neck pain Integumentary Denies abscess or rash Neurologic Neurologic: Reports weakness; Denies headache(s) Allergic/Immunologic Allergic/Immunologic ED: Denies mouth swelling or urticaria EXAM Physical Exam Const Vital Signs: 12/29/24 16:10 12/29/24 16:24 12/29/24 16:40 Temperature 96.2 F L Temperature Source Temporal Pulse Rate 64 Respiratory Rate 18 Respiratory Effort Short of Breath Blood Pressure 150/115 H Blood Pressure Mean 126 Pulse Ox 94 96 Oxygen Delivery Method Room Air Room Air 12/29/24 17:06 12/29/24 18:00 Temperature Temperature Source Pulse Ra (more content not included)... Normal [facility] H AND P Exam - Hospitaliston 12-29-2024 H&P Exam - Hospitalist [facility] Medical Records Department [address] [place] [address] H P Exam - Hospitalist 12/29/24 1848 MR#: [id number] Acct: [id number] Name: ALISA HAGAN Rep #: [id number] : 1950 74 From: Danny Iqbal MD PCP: Dr. Smitha Ray DO Status:ADM IN Location: [place] [address] HPI - General General Date of Admission: 12/29/24 HPI Narrative ALISA HAGAN, is a 74 M who presents to the hospital with lightheadedness dizziness as well as chest pain. He is in A-fib and states that he is always in A-fib with variable heart rate. He has been having lightheadedness and dizziness for the last couple of months and his primary care doctor has been trying to make some changes to his medications including discontinuing his sildenafil for his history of PE, he recently put his Cardizem on hold. He is currently on metoprolol 25 mg p.o. twice daily. He does have baseline renal dysfunction as he has had a nephrectomy for cancer. He does appear to be highly anxious and he is extremely nervous about having another PE, his last PEs occurred while on Coumadin but now he is on Eliquis properly dosed at 5 mg p.o. twice daily and he does not miss a dose. [facility] Medical History Pulmonary embolism Blood clot in leg Coronary stent patent Pacemaker Cancer of right kidney A-fib Home Medications ???Medication ???Instructions ???Recorded ???Last Taken ???Type apixaban 5 mg tablet (Eliquis) 5 mg PO BID 12/29/24 12/29/24 Hist ory aspirin 81 mg tablet,delayed 81 mg PO QHS 12/29/24 12/28/24 His tory release (Adult Aspirin Regimen) atorvastatin 40 mg tablet 40 mg PO QHS 12/29/24 12/28/24 His tory bupropion HCl 150 mg 24 hr tablet, 300 mg PO QHS 12/29/24 12/28/24 History extended release calcium carbonate 600 mg PO BID 12/29/24 12/29/24 Hi story cholecalciferol (vitamin D3) 50 50 mcg PO BID 12/29/24 12/29/24 Hi story mcg (2,000 unit) tablet (D3 DOTS) diltiazem HCl 180 mg 180 mg PO DAILY 12/29/24 Unknown H istory capsule,extended release 24 hr Held on 12/29/24. Instructions: Ordered escitalopram oxalate 20 mg tablet 20 mg PO QHS 12/29/24 12/28/24 Hi story finasteride 5 mg tablet 5 mg PO DAILY 12/29/24 12/29/24 Hi story furosemide 20 mg tablet 20 mg PO DAILY 12/29/24 12/29/24 H istory metoprolol succinate 25 mg 25 mg PO BID 12/29/24 12/29/24 His tory tablet,extended release 24 hr olopatadine 0.1 % eye drops (Eye 1 drp EACH EYE DAILY 12/29/24 Unkn own History Allergy Itch-Redness Relief) sildenafil (pulm.hypertension) 20 40 mg PO DAILY 12/29/24 Unknown H istory mg tablet Held on 12/29/24. Instructions: MD Ordered Allergy/AdvReac Type Severity Reaction Status Date / Time No Known Allergies Allergy Verified 12/29/24 16:10 Family History (Updated 12/29/24 @ 18:[address] Danny Iqbal MD) Other Cancer Diabetes Surgical History S/P insertion of IVC (inferior vena caval) filter History of right nephrectomy Hx of tonsillectomy Hx of cholecystectomy Social History housing: house Smoking Status: Never smoker ROS Constitutional Constitutional: Denies chills, fatigue, fever(s) or malaise Eyes Eyes: Denies blurry vision ENT HEENT: Denies headache(s) or nasal discharge Cardiovascular Cardiovascular: Reports chest pain, lightheadedness and palpitations; Denies dyspnea on exertion or syncope Respiratory/Chest Respiratory/Chest: Denies cough, shortness of breath at rest or shortness of breath with exertion Gastrointestinal Gastrointestinal: Denies constipation, diarrhea, nausea or vomiting Genitourinary Genitourinary: Denies dysuria Neurologic Neurologic: Denies focal weakness, numbness or tremor(s) Psychiatric Psychiatric: Reports anxiety; Denies depression Vital Signs Vital Signs Vital Signs: 12/29/24 16:10 12/29/24 16:24 12/29/24 16:40 Temperature 96.2 F L Temperature Source Temporal Pulse Rate 64 Respiratory Rate 18 Respiratory Effort Short of Breath Blood Pressure 150/115 H Blood Pressure Mean 126 Pulse Ox 94 96 Oxygen Delivery Method Room Air Room Air 12/29/24 17:06 12/29/24 18:00 12/29/24 18:33 Temperature 96.2 F L Temperature Source Pulse Rate 114 H 114 H Respiratory Rate 21 H 21 H Respiratory Effort Blood Pressure 142/96 H 143/93 H 143/93 H Blood Pressure Mean 111 109 109 Pulse Ox 95 95 Oxygen Delivery Method Room Air Weight Weight: 256 lb Body Mass Index (BMI) 36.7 Physical Exam Narrative General: Alert, Oriented x3, Cooperative, No apparent distress HEENT: Atraumatic, PERRLA, EO (more content not included)... Normal [facility] L499.0042on 12-29-2024 Trop T High Sen 63 ng/L Invalid Interpretation Code <=22 [facility] Comment on above: Result Comment: Hemo lysis present, Results??could be affected. ?? Critical Result(s) Called at: 1854by: KEYA GUZMAN TO ERIK GALO??Results read back by same. Performed By: #### L 499.0042 #### [facility] [address] [place], [place], [address] L499.0043on 12-29-2024 Trop T High Sen 64 ng/L Invalid Interpretation Code <=22 [facility] Comment on above: Result Comment: Crit ical Result(s) Called at: 2138 by: KEYA GUZMAN TO MADELYN JONES??Results read back by same. Performed By: #### L 499.0043 #### [facility] [address] [place], [address] L501.4021on 12-29-2024 Trop T High Sen 64 ng/L Invalid Interpretation Code <=22 [facility] Comment on above: Result Comment: Crit ical Result(s) Called at: 1730 by: KEYA GUZMAN TO WILDER PONCE??Results read back by same. Performed By: #### L 100.0100, L500.2500, L300.8000, L300.3900, L501.4021, L300.4310 #### [facility] [address] [place], [address] Partial Thromboplast Timeon 12-29-2024 aPTT Coag (Bld) [Time] 29.9 s Normal 24.1-36.2 [facility] Comment on above: Performed By: #### L 100.0100, L500.2500, L300.8000, L300.3900, L501.4021, L300.4310 #### [facility] [address] [place], [place], [id number] Prothrombin Time w/INRon INR Coag (PPP) [Relative time] 1.2 {INR} Normal [facility] Comment on above: Performed By: #### L 100.0100, L500.2500, L300.8000, L300.3900, L501.4021, L300.4310 #### [facility] [address] [place], [address] PT Coag (PPP) [Time] 15.5 s High 11.7-14.9 [facility] Comment on above: Performed By: #### L 100.0100, L500.2500, L300.8000, L300.3900, L501.4021, L300.4310 #### [facility] [address] [place], [address] CNOVSPon 12-03-2024 CNOVS Visit (SP) Office (HEMAPOB) ----- ALISA HAGAN ([id number]) 1950 M Date Time Provider Department 12/03/24 10:30 AM DEENA WAGGONER HEMAPREINALDO During your visit today, we recorded the following information about you: Temperature Pulse Respiration Blood pressure 97.7 degrees 65/minute 18/minute 118/68 Weight Height 117 kg 1.778 m Deena Waggoner MD 01/13/2025 9:08 PM Signed Alisa Hagan 1950 December 03, 2024 HPI: Alisa Hagan is a 74 year old male who presents as a hospital follow up. Mr. Hagan is a 74 year old male who presented to ER on 06/16/22 for dizziness and difficulty urinating. Of note he was recently admitted with subcapsular hematoma and retroperitoneal bleeding. Had 2 admissions for the same first 1 05/24/2022 to 06/04/2022, total of 11 days, the second 1 was from 06/05/2022 to 06/09/2022 for total duration of 4 days. He has a known history of right renal mass for which she was supposed to undergo robotic right laparoscopic nephrectomy on 06/03/2022. CT abdomen done during the first admission showed large right subcapsular hematoma with area of extravasation from right renal mass with hemorrhage extending inferiorly through the right retroperitoneum. His INR was 1.2 at presentation transferred to MICU for hemorrhagic shock. Had a hemoglobin drop from 13.4-7.6. Underwent IR embolization on 05/25/2022. Aspirin and Coumadin were restarted after consultation with urologist. He also underwent IVC placement on 05/20/2022 by vascular considering his history of multiple unprovoked DVTs and PEs. His first episode was about 25 years back treated with therapeutic anticoagulation and taken off anticoagulation after 6 months. He then had a recurrence in 2009 after being off of coumadin for a month per Dr. Zabala's notes. Urology was on consult during his second admission. His aspirin and warfarin was stopped at the time of second discharge. Per IR notes from 06/16/22: Right common femoral vein was accessed. Initial femoral venography showed occlusive thrombus of the infrarenal IVC and proximal right common femoral vein. Thrombectomy of right common femoral vein and IVC performed without incident. Bilateral pulmonary angiogram performed, showing filling defects in segmental pulmonary arteries bilaterally and central filling defect in the left main pulmonary artery. Left pulmonary artery mechanical thrombectomy performed without incident. Pre-thrombectomy pulmonary artery pressure was measured as a mean of 34mmHg. Post thrombectomy pulmonary artery pressure measured a mean of 33mmHg. On review of chart, pt was seen by Prieto Zabala in . Workup at that time was negative for hypercoaguable state EXCEPT for equivocal IgM cardiolipin Abs. 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 He did not have PAI1 testing. Today he is resting in bed. He is currently on hep gtt. He was having his INR checked with PCP. Says that he was doing well on Coumadin and very stable INR. Says the pain in the R flank started in December and was bad enough that it brought him to his knees. Saw outside urology and ultimately says he was not happy with care so he switched. Pt is concerned this morning that urology resident told him he was not going back on blood thinners. In Afib on monitor. No active bleeding. Retrieval of IVC in 08/09/23. Having pain in the RLE. Rolled a lawnmower over it end of April. Did not have it checked out. police magistrate rolled on him while he was sitting on it. Has a very hard lump on the inner side of the RLE just below the knee with erythema on top of it. Bruising noted from the medial knee to the ankle. Some healing with yellow d/c. Was having issues with his INR. Got clots x 3 while trying to regulate it. Got a superficial clot (estephania) LLE; next one was swelling x 2 but never did US to confirm. Has been on Eliquis since October 2023. Not sleeping well. Has to get up to bathroom. Normally 1-2x/night. Sleeps midnight to 3:30-5am. Interval history: Today he is here for follow up. Doing well on Eliquis. Pt complains about SOB. He feel dizziness on standing and walking around. No falls. Last episode of dizziness happened at work. He was standing for several hours while working on work bench. Pt does not remember locking the knees when rising from the seated position during the episode of dizziness. Pt eats twice a day as he is trying to lose weight. Drinks 24 ounces glass of water 2 to 3 times a day. Cannot donate blood because he is on blood thinners. Pt says that the pacemaker battery life is shorter due to increased use. He is not on new medication and supplements. Painful to walk if using the muscles. Not otherwise any issues. No bleeding in other locations. Fatigued. Keeps (more content not included)... Normal [facility] 25(OH)D3 [facility] 25-hydroxyvitamin D3 [Mass/Vol] 63.0 ng/mL Normal 31.0-80.0 [facility] Comment on above: Order Comment: Mynor rodas Type: BLOOD SPECIMENOrdering Facility: External Submitter Address: , , Result Comment: Clas sification of 25 [place] Vitamin D status: Deficiency/Insufficiency: < or = 30 ng/ml. Sufficiency/Optimal Levels: 31-80 ng/mL Toxicity: > 100 ng/mL. Test performed by chemiluminescent immunoassay. Performed By: #### 1 989-3 ####[facility] LABCLIA [id number] [address] [place] CBC panel Auto (Bld)on 11-28 Erythrocyte distribution width (RBC) [Ratio] 14.5 % Normal 11.5-15.0 [facility] Comment on above: Order Comment: Mynor rodas Type: BLOOD SPECIMENOrdering Facility: External Submitter Address: , , Performed By: #### 5 8410-2 ####[facility] [id number] [address] STATES OF [facility] Hematocrit (Bld) [Volume fraction] 45.6 % Normal 39.0-51.0 [facility] Comment on above: Order Comment: Mynor rodas Type: BLOOD SPECIMENOrdering Facility: External Submitter Address: , , Performed By: #### 5 8410-2 ####[facility] [id number] [address] [place] Hemoglobin (Bld) [Mass/Vol] 15.3 g/dL Normal 13.0-17.0 [facility] Comment on above: Order Comment: Mynor rodas Type: BLOOD SPECIMENOrdering Facility: External Submitter Address: , , Performed By: #### 5 8410-2 ####[facility] [id number] [address] [place] MCH (RBC) [Entitic mass] 29.5 pg Normal 26.0-34.0 [facility] Comment on above: Order Comment: Speci men Type: BLOOD SPECIMENOrdering Facility: External Submitter Address: , , Performed By: #### 5 8410-2 ####[facility] [id number] [place] [address] [place] MCHC (RBC) [Mass/Vol] 33.6 g/dL Normal 30.5-36.0 [facility] Comment on above: Order Comment: Speci men Type: BLOOD SPECIMENOrdering Facility: External Submitter Address: , , Performed By: #### 5 8410-2 ####[facility] [id number] [place] [address] [place] MCV (RBC) [Entitic vol] 87.9 fL Normal 80.0-100.0 [facility] Comment on above: Order Comment: Speci men Type: BLOOD SPECIMENOrdering Facility: External Submitter Address: , , Performed By: #### 5 8410-2 ####[facility] [id number] [address] [place] Nucleated RBC (Bld) [#/Vol] 10*3/uL Normal <0.01 [facility] Comment on above: Order Comment: Speci men Type: BLOOD SPECIMENOrdering Facility: External Submitter Address: , , Performed By: #### 5 8410-2 ####[facility] [id number] [address] [place] Platelet mean volume (Bld) [Entitic vol] 8.9 fL Low 9.0-12.7 [facility] Comment on above: Order Comment: Speci men Type: BLOOD SPECIMENOrdering Facility: External Submitter Address: , , Performed By: #### 5 8410-2 ####[facility] [id number] [place] [address] [place] Platelets (Bld) [#/Vol] 188 10*3/uL Normal 150-400 [facility] Comment on above: Order Comment: Speci men Type: BLOOD SPECIMENOrdering Facility: External Submitter Address: , , Performed By: #### 5 8410-2 ####[facility] [id number] [place] [address] [place] RBC (Bld) [#/Vol] 5.19 10*6/uL Normal 4.20-6.00 [facility] Comment on above: Order Comment: Speci men Type: BLOOD SPECIMENOrdering Facility: External Submitter Address: , , Performed By: #### 5 8410-2 ####[facility]CL[facility] [id number] [place] [address] [place] WBC (Bld) [#/Vol] 7.02 10*3/uL Normal 3.70-11.00 [facility] Comment on above: Order Comment: Speci men Type: BLOOD SPECIMENOrdering Facility: External Submitter Address: , , Performed By: #### 5 8410-2 ####[facility] [id number] [place] [address] [place] Comprehensive metabolic 2000 panelon 11-28-2024 Albumin [Mass/Vol] 4.2 g/dL Normal 3.9-4.9 [facility] Comment on above: Order Comment: Speci men Type: BLOOD SPECIMENOrdering Facility: External Submitter Address: , , Performed By: #### 1 9123-9, 31537-8 ####[facility] [id number] [place] [address] [place] ALP [Catalytic activity/Vol] 108 U/L Normal 38-113 [facility] Comment on above: Order Comment: Speci men Type: BLOOD SPECIMENOrdering Facility: External Submitter Address: , , Performed By: #### 1 9123-04, ####[facility] [id number] [place] [address] [place] ALT [Catalytic activity/Vol] 14 U/L Normal 10-54 [facility] Comment on above: Order Comment: Speci men Type: BLOOD SPECIMENOrdering Facility: External Submitter Address: , , Performed By: #### 1 9123-04, ####[facility] [id number] [place] [address] [place] Anion gap [Moles/Vol] 9 mmol/L Normal 8-15 [facility] Comment on above: Order Comment: Speci men Type: BLOOD SPECIMENOrdering Facility: External Submitter Address: , , Performed By: #### 1 9123-04, ####[facility] [id number] [place] [address] [place] AST [Catalytic activity/Vol] 14 U/L Normal 14-40 [facility] Comment on above: Order Comment: Speci men Type: BLOOD SPECIMENOrdering Facility: External Submitter Address: , , Performed By: #### 1 9123-04, ####[facility] [id number] [place] [address] [place] Bilirubin [Mass/Vol] 1.5 mg/dL High 0.2-1.3 [facility] Comment on above: Order Comment: Speci men Type: BLOOD SPECIMENOrdering Facility: External Submitter Address: , , Performed By: #### 1 239, ####[facility] [id number] [place] [address] [place] Calcium [Mass/Vol] 9.8 mg/dL Normal 8.5-10.2 [facility] Comment on above: Order Comment: Speci men Type: BLOOD SPECIMENOrdering Facility: External Submitter Address: , , Performed By: #### 1 9123-9, ####[facility] [id number] [place] [address] [place] Chloride [Moles/Vol] 102 mmol/L Normal 98-107 [facility] Comment on above: Order Comment: Speci men Type: BLOOD SPECIMENOrdering Facility: External Submitter Address: , , Performed By: #### 1 9123-9, ####[facility] [id number] [place] [address] [place] CO2 [Moles/Vol] 25 mmol/L Normal 22-30 [facility] Comment on above: Order Comment: Speci men Type: BLOOD SPECIMENOrdering Facility: External Submitter Address: , , Performed By: #### 1 9123-9, ####[facility] [id number] [place] [address] [place] Creatinine [Mass/Vol] 1.81 mg/dL High 0.73-1.22 [facility] Comment on above: Order Comment: Speci men Type: BLOOD SPECIMENOrdering Facility: External Submitter Address: , , Performed By: #### 1 9123-9, ####[facility] [id number] [place] [address] [place] Creatinine and Glomerular filtration rate.predicted panel (S/P/Bld) 39 mL/min/1.73m??? Low >=60 [facility] Comment on above: Order Comment: Speci men Type: BLOOD SPECIMENOrdering Facility: External Submitter Address: , , Result Comment: Susi mated Glomerular Filtration Rate (eGFR) is calculated using the 2020 CKD-EPI creatinine equation. This equation utilizes serum creatinine, sex, and age as parameters. The creatinine assay has traceable calibration to isotope dilution-mass spectrometry. Refer to KDIGO guidelines for clinical interpretation. In patients with unstable renal function, e.g. those with acute kidney injury, the eGFR may not accurately reflect actual GFR. Performed By: #### 1 9123-9, 98211-9 ####[facility] [id number] [place] [address] [place] Glucose [Mass/Vol] 158 mg/dL High 74-99 [facility] Comment on above: Order Comment: Mynor rodas Type: BLOOD SPECIMENOrdering Facility: External Submitter Address: , , Result Comment: The [place] Diabetes Association (ADA) provides guidance for cutoff values for fasting glucose and random glucose. The ADA defines fasting as no caloric intake for at least 8 hours. Fasting plasma glucose results between 100 to 125 mg/dL indicate increased risk for diabetes (prediabetes). Fasting plasma glucose results greater than or equal to 126 mg/dL meet the criteria for diagnosis of diabetes. In the absence of unequivocal hyperglycemia, results should be confirmed by repeat testing. In a patient with classic symptoms of hyperglycemia or hyperglycemic crisis, random plasma glucose results greater than or equal to 200 mg/dL meet the criteria for diagnosis of diabetes. Reference: Standards of Medical Care in Diabetes 2016, [employer] Diabetes Association. Diabetes Care. 2016.39(Suppl 1). Performed By: #### 1 9123-9, ####[facility] [id number] [place] [address] [place] Potassium [Moles/Vol] 4.4 mmol/L Normal 3.7-5.1 [facility] Comment on above: Order Comment: Mynor rodas Type: BLOOD SPECIMENOrdering Facility: External Submitter Address: , , Performed By: #### 1 9123-9, ####[facility] [id number] [place] [address] [place] Protein [Mass/Vol] 7.1 g/dL Normal 6.3-8.0 [facility] Comment on above: Order Comment: Speci men Type: BLOOD SPECIMENOrdering Facility: External Submitter Address: , , Performed By: #### 1 9123-9, ####[facility] MILLTOWNCLIA [id number] [place] [address] [place] Sodium [Moles/Vol] 136 mmol/L Normal 136-144 [facility] Comment on above: Order Comment: Speci men Type: BLOOD SPECIMENOrdering Facility: External Submitter Address: , , Performed By: #### 1 9123-9, ####[facility] [id number] [place] [address] [place] Urea nitrogen [Mass/Vol] 44 mg/dL High 9-24 [facility] Comment on above: Order Comment: Speci men Type: BLOOD SPECIMENOrdering Facility: External Submitter Address: , , Performed By: #### 1 9123-9, ####[facility] [id number] [place] [address] [place] Ferritin SerPl-mCncon 2024 Ferritin [Mass/Vol] 106.0 ng/mL Normal 30.3-565.7 [facility] Comment on above: Order Comment: Speci men Type: BLOOD SPECIMENOrdering Facility: External Submitter Address: , , Performed By: #### 2 4331-1 ####[facility] LABCLIA [id number] [place] [address] [place] [facility]IC[facility] [id number] [place] [address] [place]#### 2276-4, 3016-3 ####[facility] LABCLIA [id number] [place] [address] [place] Lipid 1996 panelon 5 Cholesterol [Mass/Vol] 153 mg/dL Normal <200 [facility] Comment on above: Order Comment: Speci men Type: BLOOD SPECIMENOrdering Facility: External Submitter Address: , , Result Comment: <200 mg/dL, Desirable 200-239 mg/dL, Borderline high >239 mg/dL, High Performed By: #### 2 4331-1 ####[facility] LABCLIA [id number] [place] [address], [address] [id number] [address] [place]#### 2276-4, 3016-3 ####[facility] LABCLIA [id number] [facility]INICD AVENUEDOCTOR'S HOSP[facility] MONTCLA[facility] MEDICAL CENTERK [address], [facility] Cholesterol in HDL [Mass/Vol] 56 mg/dL Normal >39 [facility] Comment on above: Order Comment: Speci men Type: BLOOD SPECIMENOrdering Facility: External Submitter Address: , , Result Comment: 40-5 9 mg/dL, Acceptable >59 mg/dL, High: Negative risk factor for coronary heart disease <40 mg/dL, Low: Positive risk factor for coronary heart disease Performed By: #### 2 4331-1 ####[facility] LABCLIA [id number] [facility]ICD [facility]ORIALK [address], [facility]95 [facility] [id number] [place] [address] [place]#### 2276-4, 3016-3 ####[facility] LABCLIA [id number] EUCD [facility] [id number], [facility] [place] [facility] Cholesterol in LDL [Mass/Vol] 67 mg/dL Normal <100 [facility] Comment on above: Order Comment: Speci men Type: BLOOD SPECIMENOrdering Facility: External Submitter Address: , , Result Comment: <100 mg/dL, Optimal 100-129 mg/dL, Near optimal/above optimal 130-159 mg/dL, Borderline high 160-189 mg/dL, High >189 mg/dL, Very high Secondary prevention optimal LDL Cholesterol levels are recommended to be < 70 mg/dL Performed By: #### 2 4331-1 ####[facility] LABCLIA [id number] [address] [address] [facility] [id number] [address]#### 2276-4, 3016-3 ####[facility] LABCLIA [id number] [place] [address] [place] [facility] Cholesterol in LDL/Cholesterol in HDL [Mass ratio] 1.20 {ratio} Normal <2.54 [facility] Comment on above: Order Comment: Speci men Type: BLOOD SPECIMENOrdering Facility: External Submitter Address: , , Result Comment: Refe rence: 1. National Cholesterol Education Program ATP III Guideline At-A-Glance Quick Desk Reference: National Heart, Lung, and Blood [place]. National Institutes of Health. 2001: NIH Publication No. 01-3305. 2. An International Atherosclerosis Society position paper: global recommendations for the management of dyslipidemia: executive summary, Atherosclerosis. 2014: 232(2):410-413. Performed By: #### 2 4331-1 ####[facility] LABCLIA [id number] [address] [address] [facility] [id number] [address]#### 2276-4, 3016-3 ####[facility] LABCLIA [id number] [address] [address] [place] [facility] Cholesterol in VLDL [Mass/Vol] 30 mg/dL High <30 [facility] Comment on above: Order Comment: Speci men Type: BLOOD SPECIMENOrdering Facility: External Submitter Address: , , Performed By: #### 2 4331-1 ####[facility] LABCLIA [id number] [facility] CLINICD [address] [place] [address] [facility] [id number] [address] [place]#### 2276-4, 3016-3 ####[facility] LABCLIA [id number] [address], [facility]95 [facility] Cholesterol non HDL [Mass/Vol] 97 mg/dL Normal <130 [facility] Comment on above: Order Comment: Speci men Type: BLOOD SPECIMENOrdering Facility: External Submitter Address: , , Result Comment: <130 mg/dL, Optimal 130-159 mg/dL, Near optimal/above optimal 160-189 mg/dL, Borderline high 190-219 mg/dL, High >219 mg/dL, Very high Secondary prevention optimal non HDL Cholesterol levels are recommended to be <100 mg/dL Performed By: #### 2 4331-1 ####[facility] LABCLIA [id number] [place] [address] [facility] [id number] [place] [address] [place]#### 2276-4, 3016-3 ####[facility] LABCLIA [id number] [address], [facility]95 [facility] Cholesterol.total/Cho lesterol in HDL [Mass ratio] 2.73 {ratio} Normal <5.10 [facility] Comment on above: Order Comment: Speci men Type: BLOOD SPECIMENOrdering Facility: External Submitter Address: , , Performed By: #### 2 4331-1 ####[facility] LABCLIA [id number] [facility]IN[facility] [address] [address] [facility] [id number] [address] [place]#### 2276-4, 3016-3 ####[facility] LABCLIA [id number] [place] [address] [place] FASTING TIME 12 hrs Normal [facility] Comment on above: Order Comment: Speci men Type: BLOOD SPECIMENOrdering Facility: External Submitter Address: , , Performed By: #### 2 4331-1 ####[facility] LABCLIA [id number] [address], [facility]95 [facility] [id number] [place] [address] [place]#### 2276-4, 6-3 ####[facility] LABCLIA [id number] [place] [address] [place] Triglyceride [Mass/Vol] 148 mg/dL Normal <150 [facility] Comment on above: Order Comment: Speci men Type: BLOOD SPECIMENOrdering Facility: External Submitter Address: , , Result Comment: <150 mg/dL, Normal 150-199 mg/dL, Borderline high 200-499 mg/dL, High >499 mg/dL, Very high Performed By: #### 2 4331-1 ####[facility] LABCLIA [id number] [place] [address] [place] OF [facility] [id number] [place] [address] [place]#### 2276-4, 3016-3 ####[facility] LABCLIA [id number] [address] [address] [place] Magnesium SerPl-mCncon 11-28 Magnesium [Mass/Vol] 2.1 mg/dL Normal 1.7-2.3 [facility] Comment on above: Order Comment: Speci men Type: BLOOD SPECIMENOrdering Facility: External Submitter Address: , , Performed By: #### 1 9123-9, 01276-0 ####[facility] [id number] [place] [address] [place] PTH-Intact SerPl-mCncon 04-0 Parathyrin.intact [Mass/Vol] 50 pg/mL Normal 15-65 [facility] Comment on above: Order Comment: Speci men Type: BLOOD SPECIMENOrdering Facility: External Submitter Address: , , Performed By: #### 2 132-9, 2738 ####[facility] LABCLIA [id number] [place] [address] [place] TSH SerPl-aCncon 11-28-2024 TSH Qn 2.000 m[IU]/L Normal 0.270-4.200 [facility] Comment on above: Order Comment: Speci men Type: BLOOD SPECIMENOrdering Facility: External Submitter Address: , , Performed By: #### 2 4331-1 ####[facility] LABCLIA [id number] [place] [address] [place] [facility] [id number] [place] [address] [place]#### 2276-4, 3016-3 ####[facility] LABCLIA [id number] [place] [address] [place] Vit B12 SerPl-mCncon 025 Cobalamin (Vitamin B12) [Mass/Vol] 654 pg/mL Normal 232-1245 [facility] Comment on above: Order Comment: Speci men Type: BLOOD SPECIMENOrdering Facility: External Submitter Address: , , Performed By: #### 2 132-9, 273-8 ####[facility] LABCLIA [id number] [place] [address] [place] No Panel Informationon 10-25 BLANK _ [facility] Implant Date 07/22/2020 [facility] PACEMAKER REMOTE CHECKon AV Delay Adaptive Paced Minimum (ms) 300 ms [facility] AV Delay Adaptive Sensed Minimum (ms) 270 ms [facility] AV Delay Paced (ms) 100 ms [facility] AV Delay Sensed (ms) 90 ms [facility] Steven RA Pacing Amplitude (volts) 2.0 V [facility] RA Pacing Polarity BI [facility] Steven RA Pacing Pulse Width (ms) 0.4 ms [facility] Steven RA Sensing Amplitude (mvolts) 0.25 mV [facility] Steven RA Sensing Polarity BI [facility] Steven RV Pacing Amplitude (volts) 1.5 V [facility] Steven RV Pacing Polarity BI [facility] RV Pacing Pulse Width (ms) 0.4 ms [facility] Steven RV Sensing Amplitude (mvolts) 1.5 mV [facility] Steven RV Sensing Polarity BI [facility] Lead1 Mfg [facility] Lead2 Mfg [facility] Location RA [facility] Location RV [facility] Lower Rate (bpm) 60 {beats}/min [facility] Model L331 ACCOLADE MRI EL [facility] Model 7841 Ingevity+IS-1 [facility] Model 7842 Ingevity+IS-1 [facility] Pacing Mode DDDR [facility] PM-Device Mfg BSX [facility] PM-Percent Pacing (A) 0 % [facility] PM-Percent Pacing (V) 18 % [facility] RA Bipolar Impedance ohms 675 ohm [facility] RV Bipolar Impedance ohms 663 ohm [facility] Serial Number [id number] [facility] Serial Number [id number] [facility] Serial Number [id number] [facility] Thresh RV Capture Amplitude (volts) 0.9 V [facility] Thresh RV Capture Duration (ms) 0.4 ms [facility] Tracking Rate (bpm) 130 {beats}/min [facility] PM remote interrogat ion. Presenting EGM: Afib @ 61-93 bpm. Interrogation shows no ventricular high rates and mode switch remains chronic since last check. Takes Eliquis. Lead impedances and sensing measurements stable. RV auto stable. Battery voltage stable. Recommended replacement time is 7.5 yrs. Kylee Figueroa RN NOTE TO PROVIDERS: CARD Flowsheets contain detailed device programming and testing data. Paceart/Interrogation PDF can be found under CARDIAC DATA AND REPORT, Scanned Documents section. PACEART 10/25/2024 Formattin g of this note might be different from the original. PM remote interrogation. Presenting EGM: Afib @ 61-93 bpm. Interrogation shows no ventricular high rates and mode switch remains chronic since last check. Takes Eliquis. Lead impedances and sensing measurements stable. RV auto stable. Battery voltage stable. Recommended replacement time is 7.5 yrs. Kylee Figueroa RN NOTE TO PROVIDERS: CARD Flowsheets contain detailed device programming and testing data. Paceart/Interrogation PDF can be found under CARDIAC DATA AND REPORT, Scanned Documents section. [facility] CNOVon 09-24-2024 CNOV Office Visit (UCWSTR ) ----- ALISA HAGAN ([id number]) 1950 M Date Time Provider Department 09/24/24 3:45 PM JANIE ORELLANA [facility] During your visit today, we recorded the following information about you: Temperature Pulse Respiration Blood pressure 96.9 degrees 74/minute 16/minute 128/80 Weight 117.5 kg Janie Orellana APRN.ELECTRIC ARC WELDER 09/24/2024 4:34 PM Signed This note was created using NoteWriter. Subjective Alisa Hankins Yung is a 74 year old male. 74 year old male with PMH afib and PE (Eliquis), HTN, hyperlipidemia, HTN, pacemaker, CTEPH and obesity presents for illness Acute onset 3 days ago +cough Non productive +chest tightness +rhinorrhea +body aches +fatigue Denies eye, ear or nose complaints Denies N/V/D Denies tobacco usage Has used dayquil and nyquil with mild relief Of note, he was seen here on 08/31/24 Diagnosed with cough, RX Doxy. RX Tessalon Perles The history is provided by the patient. No night worker was used. Cough This is a new problem. The current episode started more than 2 days ago. The problem occurs constantly. The problem has not changed since onset.The cough is Non-productive. Associated symptoms include chills and myalgias. Pertinent negatives include no chest pain, no sweats, no weight loss, no ear congestion, no ear pain, no headaches, no rhinorrhea, no sore throat, no shortness of breath, no wheezing and no eye redness. He has tried cough syrup for the symptoms. The treatment provided no relief. He is not a smoker. His past medical history does not include bronchitis, pneumonia, bronchiectasis, COPD, emphysema or asthma. 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 Horan at [facility] CARDIOVERSION 02/04/2021 Successful conversion from atrial fibrillation to sinus rhythm, by Dr. Horan at [facility] CC PCI CORONARY INTERVENT 2018 CT ANGIOGRAPHY CHEST 11/30/2016 w/contrast ECHO TRANSESOPHAG CONGEN PROBE [facility] IANDR 01/02/2021 EF 55%, +LAKSHMI thrombus, +PFO ECHO TRANSESOPHAG CONGEN PROBE [facility] IANDR 02/04/2021 EF 50%, mildly dilated RV, moderately dilated LA, no LAKSHMI thrombus, no PFO ECHOCARDIOGRAM 01/04/2006 [facility] EKG 12 LEAD 04/23/2011 [facility] EVENT MONITOR 07/08/2017 24 hour LAPS SURG CHOLECYSTECTOMY W/CHOLANGIOGRAPHY 04/21/2009 PACEMAKER IMPLANT Left 07/22/2020 Dual chamber, [employer], MRI compatible 6 weeks after implantm by Dr. Horan at [facility] PAST SURGICAL HISTORY OF Right kidney removal May 2022 STRESS TEST 03/11/2006 [facility] WENDY (TRANSESOPHAGEAL ECHO) 11/30/2016 Nakul/Payton Hastings DO TONSILLECTOMY PRIMARY/SECONDARY AGE 14/> ALLERGIES Patient has no known allergies. MEDICATIONS ELIQUIS 5 mg tab(s) buPROPion XL (WELLBUTRIN XL) 150 mg 24 hr tablet two times a day. metoprolol succinate ER (TOPROL XL) 25 mg 24 hr tablet atorvastatin (LIPITOR) 40 mg tablet Take 40 mg by mouth once daily. sildenafil (REVATIO) 20 mg tablet Take 1 tablet by mouth two times a day. furosemide (LASIX) 40 mg tablet Take 40 mg by mouth once daily. finasteride (PROSCAR) 5 mg tablet Take 5 mg by mouth every evening. aspirin, enteric coated (ECOTRIN LOW STRENGTH) 81 mg EC tablet Take 1 tablet by mouth once daily. cholecalciferol (VITAMIN D3) 50 mcg (2,000 unit) tablet Take 2,000 Units by mouth twice daily. escitalopram 20 mg tablet Take 20 mg by mouth once daily. methylPREDNISolone (MEDROL, ZHENG,) 4 mg Dose-Pack Follow dosing instructions, take with food. fluticasone (FLONASE) 50 mcg/actuation nasal spray Use 2 Sprays in each nostril once daily. Rinse mouth after use. calcium carbonate (CALTRATE) 600 mg calcium (1,500 mg) tab Take 600 mg by mouth. calcitonin,salmon, (MIACALCIN) 200 unit/actuation nasal spray Inhale as instructed. (Patient not taking: Reported on 12/20/2023) dilTIAZem CD (CARDIZEM CD, CARTIA XT) 180 mg 24 hr capsule Take 1 capsule by mouth once daily. warfarin (COUMADIN (more content not included)... Normal [facility] INFLUENZA A&B MOLECULAR (POC )on 09-24-2024 Flu A (POCT) Negative Negative [facility] Flu B (POCT) Negative Negative [facility] Procedural Control Valid [facility] Location:[facility], [address] [place] [address], [place], [address] [facility] POINT OF CARE [facility] 09-13-2024 U Creatinine 118.4 mg/dL Normal [facility] Comment on above: Performed By: #### M ALBR #### [address] [place], [place] [address] U Microalb 950 mcg/dL Normal [facility] Comment on above: Performed By: #### M ALBR #### [address] [place], [place] [address] U Ratio Alb/Cre 8 mcg/mg Normal 0-30 [facility] Comment on above: Performed By: #### M ALBR #### [id number] [place], [place] [address] CNOVon 08-31-2024 CNOV Office Visit (UCWSTR ) ----- ALISA HAGAN ([id number]) 1950 M Date Time Provider Department 08/31/24 2:45 PM KAMERON CONTRERAS [facility] During your visit today, we recorded the following information about you: Temperature Pulse Respiration Blood pressure 97.5 degrees 84/minute 18/minute 117/73 Weight 115.4 kg Kameron Contreras APRN.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 Most bothersome symptom today is cough. Feels like body aches and chills have improved. Has had increased sinus pressure. Sinus drainage that became green/yellow. Sick contacts unknown OTC medication little to no success. No chest pain shortness of breath pleuritic pain or hemoptysis. Past medical history prescription medications allergies reviewed. 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 Horan at [facility] CARDIOVERSION 02/04/2021 Successful conversion from atrial fibrillation to sinus rhythm, by Dr. Horan at [facility] CC PCI CORONARY INTERVENT 2018 CT ANGIOGRAPHY CHEST 11/30/2016 w/contrast ECHO TRANSESOPHAG CONGEN PROBE [facility] IAWAR 01/02/2021 EF 55%, +LAKSHMI thrombus, +PFO ECHO TRANSESOPHAG CONGEN PROBE [facility] IANDR 02/04/2021 EF 50%, mildly dilated RV, moderately dilated LA, no LAKSHMI thrombus, no PFO ECHOCARDIOGRAM 01/04/2006 [facility] EKG 12 LEAD 04/23/2011 [facility] EVENT MONITOR 07/08/2017 24 hour LAPS SURG CHOLECYSTECTOMY W/CHOLANGIOGRAPHY 04/21/2009 PACEMAKER IMPLANT Left 07/22/2020 Dual chamber, [employer], MRI compatible 6 weeks after implantm by Dr. Horan at [facility] PAST SURGICAL HISTORY OF Right kidney removal May 2022 STRESS TEST 03/11/2006 [facility] WENDY (TRANSESOPHAGEAL ECHO) 11/30/2016 Nakul/Payton Hastings DO TONSILLECTOMY PRIMARY/SECONDARY AGE 14/> ALLERGIES Patient has no known allergies. MEDICATIONS ELIQUIS 5 mg tab(s)Disp: Rfl: buPROPion XL (WELLBUTRIN XL) 150 mg 24 hr tablettwo times a day.Disp: Rfl: metoprolol succinate ER (TOPROL XL) 25 mg 24 hr tabletDisp: Rfl: atorvastatin (LIPITOR) 40 mg tabletTake 40 mg by mouth once daily.Disp: Rfl: sildenafil (REVATIO) 20 mg tabletTake 1 tablet by mouth two times a day.Disp: 60 tabletRfl: 5 furosemide (LASIX) 40 mg tabletTake 40 mg by mouth once daily.Disp: Rfl: finasteride (PROSCAR) 5 mg tabletTake 5 mg by mouth every evening.Disp: Rfl: aspirin, enteric coated (ECOTRIN LOW STRENGTH) 81 mg EC tabletTake 1 tablet by mouth once daily.Disp: Rfl: cholecalciferol (VITAMIN D3) 50 mcg (2,000 unit) tabletTake 2,000 Units by mouth twice daily. Disp: Rfl: escitalopram 20 mg tabletTake 20 mg by mouth once daily.Disp: Rfl: calcium carbonate (CALTRATE) 600 mg calcium (1,500 mg) tabTake 600 mg by mouth.Disp: Rfl: calcitonin,salmon, (MIACALCIN) 200 unit/actuation nasal sprayInhale as instructed.Disp: Rfl: (Patient not taking: Reported on 12/20/2023) dilTIAZem CD (CARDIZEM CD, CARTIA XT) 180 mg 24 hr capsuleTake 1 capsule by mouth once daily.Disp: 30 capsuleRfl: 11 warfarin (COUMADIN) 2 mg tabletTake 2 mg by mouth daily as directed. 2 MG EVERy Tuesday, Tuesday, Tuesday and tuesdayDisp: Rfl: (Patient not taking: Reported on 12/20/2023) warfarin (COUMADIN) 5 mg tabletTake 1 tablet by mouth once daily.Disp: 30 tabletRfl: 0 (Patient not taking: Reported on 12/20/2023) atorvastatin (LIPITOR) 80 mg tabletTake 0.5 tablets by mouth once daily.Disp: 90 tabletRfl: 3 FAMILY HISTORY Problem Relation Age of Onset Arthritis Mother Cancer Mother Blood Disease Father clotting factor Diabetes Father Seizures Father Blood Disease Sister clotting factor DVT Sister Blood Disease Brother clotting ffactor DVT Brother Social History Tobacco Use Smoking status: Never (more content not included)... Normal [facility] XR CHEST 2V FRONTAL/LATon XR CHEST 2V FRONTAL/LAT * * *Final Report* * * DATE OF EXAM: Aug 31 2024 2:30PM WOX 5291 - XR CHEST 2V FRONTAL/LAT / PROCEDURE REASON: Acute cough * * * * Physician Interpretation * * * * EXAMINATION: CHEST RADIOGRAPH (2 VIEW FRONTAL and LATERAL) CLINICAL HISTORY: Acute cough MQ: XC2_6 EXAM DATE/TIME: 08/31/2024 2:30 PM COMPARISON: No relevant prior studies available. RESULT: Lines, tubes, and devices: A left chest dual-chamber pacemaker in place. Lungs and pleura: There are numerous nodules or calcified nodules in the bilateral lungs. No consolidation. No lung mass. No pleural effusion. No pneumothorax. Cardiomediastinal silhouette: The cardiac silhouette is within normal limits. There are calcified lymph nodes in the bilateral moi. Bones and soft tissues: The spine shows degenerative changes. IMPRESSION: No acute radiographic abnormality. Numerous nodules or calcified nodules in the bilateral lungs. Patient Accounts Specialist: [facility] Transcribe Date/Time: Aug 31 2024 2:52P Dictated by : AURORA QUEVEDO MD This examination was interpreted and the report reviewed and electronically signed by: AURORA QUEVEDO MD on Aug 31 2024 3:01PM EST [id number] Normal [facility] XR Chest PA and Lateralon IMPRESSION: No acute radiographic abnormality. Numerous nodules or calcified nodules in the bilateral lungs. Patient Accounts Specialist: [facility] Transcribe Date/Time: Aug 31 2024 2:52P Dictated by : AURORA QUEVEDO MD This examination was interpreted and the report reviewed and electronically signed by: AURORA QUEVEDO MD on Aug 31 2024 3:01PM [facility] DIVISION OF RADIOLOGY * * *Final Report* * * DATE OF EXAM: Aug 31 2024 2:30PM WOX [id number] - XR CHEST 2V FRONTAL/LAT / PROCEDURE REASON: Acute cough * * * * Physician Interpretation * * * * EXAMINATION: CHEST RADIOGRAPH (2 VIEW FRONTAL & LATERAL) CLINICAL HISTORY: Acute cough MQ: XC2_6 EXAM DATE/TIME: 08/31/2024 2:30 PM COMPARISON: No relevant prior studies available. RESULT: Lines, tubes, and devices: A left chest dual-chamber pacemaker in place. Lungs and pleura: There are numerous nodules or calcified nodules in the bilateral lungs. No consolidation. No lung mass. No pleural effusion. No pneumothorax. Cardiomediastinal silhouette: The cardiac silhouette is within normal limits. There are calcified lymph nodes in the bilateral moi. Bones and soft tissues: The spine shows degenerative changes. DIVISION OF RADIOLOGY Provider, Jacquelin Ibrahim - 08/31/2024 * * *Final Report* * * DATE OF EXAM: Aug 31 2024 2:30PM WOX [id number] - XR CHEST 2V FRONTAL/LAT / PROCEDURE REASON: Acute cough * * * * Physician Interpretation * * * * EXAMINATION: CHEST RADIOGRAPH (2 VIEW FRONTAL & LATERAL) CLINICAL HISTORY: Acute cough MQ: XC2_6 EXAM DATE/TIME: 08/31/2024 2:30 PM COMPARISON: No relevant prior studies available. RESULT: Lines, tubes, and devices: A left chest dual-chamber pacemaker in place. Lungs and pleura: There are numerous nodules or calcified nodules in the bilateral lungs. No consolidation. No lung mass. No pleural effusion. No pneumothorax. Cardiomediastinal silhouette: The cardiac silhouette is within normal limits. There are calcified lymph nodes in the bilateral moi. Bones and soft tissues: The spine shows degenerative changes. IMPRESSION IMPRESSION: No acute radiographic abnormality. Numerous nodules or calcified nodules in the bilateral lungs. Patient Accounts Specialist: [facility] Transcribe Date/Time: Aug 31 2024 2:52P Dictated by : AURORA QUEVEDO MD This examination was interpreted and the report reviewed and electronically signed by: AURORA QUEVEDO MD on Aug 31 2024 3:01PM EST [facility] Radiology Study observation (narrative) [facility] XR Chest PA and LateralOrder ed By: [facility] Provider on 08-31-2024 [facility] No Panel Informationon 07-19 BLANK _ [facility] Implant Date 07/22/2020 [facility]IN[facility] CHECKon AV Delay Adaptive Paced Minimum (ms) 300 ms [facility] AV Delay Adaptive Sensed Minimum (ms) 270 ms [facility] AV Delay Paced (ms) 100 ms [facility] AV Delay Sensed (ms) 90 [facility] Steven RA Pacing Amplitude (volts) 2.0 V [facility] Steven RA Pacing Polarity BI [facility] Steven RA Pacing Pulse Width (ms) 0.4 ms [facility] Steven RA Sensing Amplitude (mvolts) 0.25 mV [facility] Steven RA Sensing Polarity BI [facility] Steven RV Pacing Amplitude (volts) 1.5 V [facility] Steven RV Pacing Polarity BI [facility] Steven RV Pacing Pulse Width (ms) 0.4 ms [facility] Steven RV Sensing Amplitude (mvolts) 1.5 mV [facility] Steven RV Sensing Polarity BI [facility] Lead1 [employer] [facility] Lead2 Mfg [employer] [facility] Location RA [facility] Location RV [facility] Lower Rate (bpm) 60 {beats}/min [facility] Model L331 ACCOLADE MRI EL [facility] Model 7841 Ingevity+IS-1 [facility] Model 7842 Ingevity+IS-1 [facility] Pacing Mode DDDR [facility] PM-Device Mfg BSX [facility] PM-Percent Pacing (A) 0 % [facility] PM-Percent Pacing (V) 24 % [facility] RA Bipolar Impedance ohms 663 ohm [facility] RV Bipolar Impedance ohms 634 ohm [facility] Serial Number [id number] [facility] Serial Number [id number] [facility] Serial Number [id number] [facility] Thresh RV Capture Amplitude (volts) 0.8 V [facility] Thresh RV Capture Duration (ms) 0.4 ms [facility] Tracking Rate (bpm) 130 {beats}/min [facility] 07/19/2024 Formattin g of this note might be different from the original. PPM check, dual lead system with programming. ID [id number]. Here for routine PM evaluation. Incision/pocket left pectoral area without signs of infection. c/o having a lightheaded/ floaty feeling QD. Not continuous. Presenting rhythm atrial fib w/ RV demand pacing. Interrogation shows 162 nonsustained or SVT events since last remote check done 04-12-24. Mode switch chronic. EGM's show RVR. Rates 132-190 BPM. Most recent events on . Longest SVT event 4 min, rate 163 BPM. Takes Eliquis BID and 81 mg asa QD. Recommended replacement time is 8 more years. Lead impedances, sensing and pacing thresholds stable. No changes made. Reassured PM function stable. Counters cleared. Next device check scheduled for patient, questions answered. Dolly DAVID NOTE TO PROVIDERS: CARD Flowsheets contain detailed device programming and testing data. Paceart/Interrogation PDF can be found under CARDIAC DATA AND REPORT, Scanned Documents section. [facility] 25([place])D3 [facility] 25-hydroxyvitamin D3 [Mass/Vol] 67.1 ng/mL Normal 31.0-80.0 [facility] Comment on above: Order Comment: Speci clark Type: BLOOD SPECIMENOrdering Facility: External Submitter Address: , , Result Comment: Clas sification of 25 [place] Vitamin D status: Deficiency/Insufficiency: < or = 30 ng/ml. Sufficiency/Optimal Levels: 31-80 ng/mL Toxicity: > 100 ng/mL. Test performed by chemiluminescent immunoassay. Performed By: #### 1 989-3 ####[facility] LABIA [id number] [address] [place] ALBUMIN/CREATININE RATIO, UR INEon 06-06-2024 Albumin DL <= 20 mg/L (U) [Mass/Vol] 39.6 mg/L Normal [facility] Comment on above: Order Comment: Speci men Type: URINE SPECIMENOrdering Facility: External Submitter Address: , , Performed By: #### U ACR ####[facility] LABIA [id number] [address] STATES OF [facility] Albumin/Creatinine (U) [Mass ratio] 41 mg/g High <30 [facility] Comment on above: Order Comment: Oseasi clark Type: URINE SPECIMENOrdering Facility: External Submitter Address: , , Result Comment: Adul t Male and Female Nephrotic Criteria: <30 mg/g is considered normal to mildly increased 30-300 mg/g is considered moderately increased >300 mg/g is considered severely increased KDIGO. (2013). KDIGO 2012 Clinical Practice Guideline for the Evaluation and Management of Chronic Kidney Disease. Official Journal of the International Society of Nephrology, 3(1), 1-150. Performed By: #### U ACR ####[facility] LABCLIA [id number] [place] [address] [place] Creatinine (U) [Mass/Vol] 97.3 mg/dL Normal 20.0-300.0 [facility] Comment on above: Order Comment: Speci men Type: URINE SPECIMENOrdering Facility: External Submitter Address: , , Performed By: #### U ACR ####[facility] LABCLIA [id number] [address] [place] CBC panel Auto (Bld)on 06-06 Erythrocyte distribution width (RBC) [Ratio] 14.3 % Normal 11.5-15.0 [facility] Comment on above: Order Comment: Speci men Type: BLOOD SPECIMENOrdering Facility: External Submitter Address: , , Performed By: #### 5 8410-2 ####[facility] [id number] [address] [place] Hematocrit (Bld) [Volume fraction] 45.0 % Normal 39.0-51.0 [facility] Comment on above: Order Comment: Speci men Type: BLOOD SPECIMENOrdering Facility: External Submitter Address: , , Performed By: #### 5 8410-2 ####[facility] [id number] [address] [place] Hemoglobin (Bld) [Mass/Vol] 15.2 g/dL Normal 13.0-17.0 [facility] Comment on above: Order Comment: Speci men Type: BLOOD SPECIMENOrdering Facility: External Submitter Address: , , Performed By: #### 5 8410-2 ####[facility] [id number] [address] [place] MCH (RBC) [Entitic mass] 30.3 pg Normal 26.0-34.0 [facility] Comment on above: Order Comment: Speci men Type: BLOOD SPECIMENOrdering Facility: External Submitter Address: , , Performed By: #### 5 8410-2 ####[facility] [id number] [place] [id number] [place] MCHC (RBC) [Mass/Vol] 33.8 g/dL Normal 30.5-36.0 [facility] Comment on above: Order Comment: Speci men Type: BLOOD SPECIMENOrdering Facility: External Submitter Address: , , Performed By: #### 5 8410-2 ####[facility] [id number] [place] [address] [place] MCV (RBC) [Entitic vol] 89.6 fL Normal 80.0-100.0 [facility] Comment on above: Order Comment: Speci men Type: BLOOD SPECIMENOrdering Facility: External Submitter Address: , , Performed By: #### 5 8410-2 ####[facility] [id number] [place] [address] [place] Nucleated RBC (Bld) [#/Vol] 10*3/uL Normal <0.01 [facility] Comment on above: Order Comment: Speci men Type: BLOOD SPECIMENOrdering Facility: External Submitter Address: , , Performed By: #### 5 8410-2 ####[facility] [id number] [place] [address] [place] Platelet mean volume (Bld) [Entitic vol] 9.3 fL Normal 9.0-12.7 [facility] Comment on above: Order Comment: Speci men Type: BLOOD SPECIMENOrdering Facility: External Submitter Address: , , Performed By: #### 5 8410-2 ####[facility] [id number] [place] [address] [place] Platelets (Bld) [#/Vol] 227 10*3/uL Normal 150-400 [facility] Comment on above: Order Comment: Speci men Type: BLOOD SPECIMENOrdering Facility: External Submitter Address: , , Performed By: #### 5 8410-2 ####[facility]ALL[facility] [id number] [place] [address] [place] RBC (Bld) [#/Vol] 5.02 10*6/uL Normal 4.20-6.00 [facility] Comment on above: Order Comment: Speci men Type: BLOOD SPECIMENOrdering Facility: External Submitter Address: , , Performed By: #### 5 8410-2 ####[facility] [id number] [place] [address] [place] WBC (Bld) [#/Vol] 8.80 10*3/uL Normal 3.70-11.00 [facility] Comment on above: Order Comment: Speci men Type: BLOOD SPECIMENOrdering Facility: External Submitter Address: , , Performed By: #### 5 8410-2 ####[facility]CL[facility] [id number] [place] [address] [place] [facility] Comprehensive metabolic 2000 panelon 06-06-2024 Albumin [Mass/Vol] 4.2 g/dL Normal 3.9-4.9 [facility] Comment on above: Order Comment: Speci men Type: BLOOD SPECIMENOrdering Facility: External Submitter Address: , , Performed By: #### 2 4323-8, 48002-6 ####[facility] [id number] [place] [address] [place] ALP [Catalytic activity/Vol] 118 U/L High 38-113 [facility] Comment on above: Order Comment: Speci men Type: BLOOD SPECIMENOrdering Facility: External Submitter Address: , , Performed By: #### 2 4323-8, 07114-7 ####[facility] [id number] [address] [place] ALT [Catalytic activity/Vol] 11 U/L Normal 10-54 [facility] Comment on above: Order Comment: Speci men Type: BLOOD SPECIMENOrdering Facility: External Submitter Address: , , Performed By: #### 2 4328, ####[facility]ITALKEVINA [id number] [place] [address] [place] Anion gap [Moles/Vol] 12 mmol/L Normal 8-15 [facility] Comment on above: Order Comment: Speci men Type: BLOOD SPECIMENOrdering Facility: External Submitter Address: , , Performed By: #### 2 43211-03, ####[facility] [id number] [place] [address] [place] AST [Catalytic activity/Vol] 10 U/L Low 14-40 [facility] Comment on above: Order Comment: Speci men Type: BLOOD SPECIMENOrdering Facility: External Submitter Address: , , Performed By: #### 2 4323-03, ####[facility] [id number] [place] [address] [place] Bilirubin [Mass/Vol] 1.5 mg/dL High 0.2-1.3 [facility] Comment on above: Order Comment: Speci men Type: BLOOD SPECIMENOrdering Facility: External Submitter Address: , , Performed By: #### 2 43211-03, ####[facility] [id number] [place] [address] [place] Calcium [Mass/Vol] 9.6 mg/dL Normal 8.5-10.2 [facility] Comment on above: Order Comment: Speci men Type: BLOOD SPECIMENOrdering Facility: External Submitter Address: , , Performed By: #### 2 43238, ####[facility]ITALNCLI [id number] [place] [address] [place] Chloride [Moles/Vol] 101 mmol/L Normal 98-107 [facility] Comment on above: Order Comment: Speci clark Type: BLOOD SPECIMENOrdering Facility: External Submitter Address: , , Performed By: #### 2 4328, ####[facility] [id number] [place] [address] [place] CO2 [Moles/Vol] 21 mmol/L Low 22-30 [facility] Comment on above: Order Comment: Speci men Type: BLOOD SPECIMENOrdering Facility: External Submitter Address: , , Performed By: #### 2 43211-03, ####[facility] [id number] [place] [address] [place] Creatinine [Mass/Vol] 1.70 mg/dL High 0.73-1.22 [facility] Comment on above: Order Comment: Speci clark Type: BLOOD SPECIMENOrdering Facility: External Submitter Address: , , Performed By: #### 2 43211-03, ####[facility] [id number] [place] [address] [place] Creatinine and Glomerular filtration rate.predicted panel (S/P/Bld) 43 mL/min/1.73m??? Low >=60 [facility] Comment on above: Order Comment: Mynor rodas Type: BLOOD SPECIMENOrdering Facility: External Submitter Address: , , Result Comment: Susi mated Glomerular Filtration Rate (eGFR) is calculated using the 2020 CKD-EPI creatinine equation. This equation utilizes serum creatinine, sex, and age as parameters. The creatinine assay has traceable calibration to isotope dilution-mass spectrometry. Refer to KDIGO guidelines for clinical interpretation. In patients with unstable renal function, e.g. those with acute kidney injury, the eGFR may not accurately reflect actual GFR. Performed By: #### 2 4323-8, ####[facility] [id number] [place] [address] [place] Glucose [Mass/Vol] 137 mg/dL High 74-99 [facility] Comment on above: Order Comment: Mynor rodas Type: BLOOD SPECIMENOrdering Facility: External Submitter Address: , , Result Comment: The [place] Diabetes Association (ADA) provides guidance for cutoff values for fasting glucose and random glucose. The ADA defines fasting as no caloric intake for at least 8 hours. Fasting plasma glucose results between 100 to 125 mg/dL indicate increased risk for diabetes (prediabetes). Fasting plasma glucose results greater than or equal to 126 mg/dL meet the criteria for diagnosis of diabetes. In the absence of unequivocal hyperglycemia, results should be confirmed by repeat testing. In a patient with classic symptoms of hyperglycemia or hyperglycemic crisis, random plasma glucose results greater than or equal to 200 mg/dL meet the criteria for diagnosis of diabetes. Reference: Standards of Medical Care in Diabetes 2016, Chinese Diabetes Association. Diabetes Care. 2016.39(Suppl 1). Performed By: #### 2 4328, ####[facility] [id number] [place] [address] [place] Potassium [Moles/Vol] 4.9 mmol/L Normal 3.7-5.1 [facility] Comment on above: Order Comment: Mynor rodas Type: BLOOD SPECIMENOrdering Facility: External Submitter Address: , , Performed By: #### 2 4328, ####[facility] [id number] [place] [address] [place] Protein [Mass/Vol] 7.2 g/dL Normal 6.3-8.0 [facility] Comment on above: Order Comment: Mynor rodas Type: BLOOD SPECIMENOrdering Facility: External Submitter Address: , , Performed By: #### 2 4323, ####[facility] [id number] [place] [address] [place] Sodium [Moles/Vol] 134 mmol/L Low 136-144 [facility] Comment on above: Order Comment: Speci men Type: BLOOD SPECIMENOrdering Facility: External Submitter Address: , , Performed By: #### 2 4323-8, 39231-0 ####[facility] LEONORRANDLETTANGIELIA [id number] [place] [address] [place] Urea nitrogen [Mass/Vol] 39 mg/dL High 9-24 [facility] Comment on above: Order Comment: Speci men Type: BLOOD SPECIMENOrdering Facility: External Submitter Address: , , Performed By: #### 2 4323-8, 52805-7 ####[facility]ITALNCSHONA [id number] [place] [address] [place] Ferritin SerPl-mCncon 2023 Ferritin [Mass/Vol] 178.0 ng/mL Normal 30.3-565.7 [facility] Comment on above: Order Comment: Speci men Type: BLOOD SPECIMENOrdering Facility: External Submitter Address: , , Performed By: #### 3 016-3, 2276-4 ####[facility] LABCLIA [id number] [place] [address] [place]#### 90418-1 ####[facility] LABCLIA [id number] [address] STATES OF [facility] [id number] [place] [address] [place] Folate SerPl-mCncon 06-06-20 Folate [Mass/Vol] 6.9 ng/mL Normal >4.7 [facility] Comment on above: Order Comment: Speci men Type: BLOOD SPECIMENOrdering Facility: External Submitter Address: , , Performed By: #### 2 132-9, 2284-8, 2731-8 ####[facility] LABCLIA [id number] [address] [place] Lipid 1996 panelon 4 Cholesterol [Mass/Vol] 181 mg/dL Normal <200 [facility] Comment on above: Order Comment: Speci men Type: BLOOD SPECIMENOrdering Facility: External Submitter Address: , , Result Comment: <200 mg/dL, Desirable 200-239 mg/dL, Borderline high >239 mg/dL, High Performed By: #### 3 016-3, 2275-11 ####[facility] LABCLIA [id number] [address] [place]#### 01281-0 ####[facility] LABCLIA [id number] [id number] [place] [address] STATES [facility] Cholesterol in HDL [Mass/Vol] 58 mg/dL Normal >39 [facility] Comment on above: Order Comment: Speci men Type: BLOOD SPECIMENOrdering Facility: External Submitter Address: , , Result Comment: 40-5 9 mg/dL, Acceptable >59 mg/dL, High: Negative risk factor for coronary heart disease <40 mg/dL, Low: Positive risk factor for coronary heart disease Performed By: #### 3 016-3, 2275-11 ####[facility] LABCLIA [id number] [address] [place]#### 14973-1 ####[facility] LABCLIA [id number] [address] [id number] [place] [address] STATES OF [facility] Cholesterol in LDL [Mass/Vol] 90 mg/dL Normal <100 [facility] Comment on above: Order Comment: Speci men Type: BLOOD SPECIMENOrdering Facility: External Submitter Address: , , Result Comment: <100 mg/dL, Optimal 100-129 mg/dL, Near optimal/above optimal 130-159 mg/dL, Borderline high 160-189 mg/dL, High >189 mg/dL, Very high Secondary prevention optimal LDL Cholesterol levels are recommended to be < 70 mg/dL Performed By: #### 3 016-3, 2275-4 ####[facility] LABCLIA [id number] [address]#### 61421-6 ####[facility] LABCLIA [id number] [address] [id number] [place] [address] [place] Cholesterol in LDL/Cholesterol in HDL [Mass ratio] 1.55 {ratio} Normal <2.54 [facility] Comment on above: Order Comment: Speci men Type: BLOOD SPECIMENOrdering Facility: External Submitter Address: , , Result Comment: Fabiola stricklandce: 1. National Cholesterol Education Program ATP III Guideline At-A-Glance Quick Desk Reference: National Heart, Lung, and Blood [place]. National Institutes of Health. 2001: NIH Publication No. 01-3305. 2. An International Atherosclerosis Society position paper: global recommendations for the management of dyslipidemia: executive summary, Atherosclerosis. 2014: 232(2):410-413. Performed By: #### 3 -3, 2275- ####[facility] LABCLIA [id number] [address]#### 31443-5 ####[facility] LABCLIA [id number] [address] [id number] [place] [address] [place] Cholesterol in VLDL [Mass/Vol] 33 mg/dL High <30 [facility] Comment on above: Order Comment: Speci men Type: BLOOD SPECIMENOrdering Facility: External Submitter Address: , , Performed By: #### 3 -3, 2275-11 ####[facility] LABCLIA [id number] [address] [place]#### 75183-2 ####[facility] LABCLIA [id number] [address] [id number] [address] [place] Cholesterol non HDL [Mass/Vol] 123 mg/dL Normal <130 [facility] Comment on above: Order Comment: Speci men Type: BLOOD SPECIMENOrdering Facility: External Submitter Address: , , Result Comment: <130 mg/dL, Optimal 130-159 mg/dL, Near optimal/above optimal 160-189 mg/dL, Borderline high 190-219 mg/dL, High >219 mg/dL, Very high Secondary prevention optimal non HDL Cholesterol levels are recommended to be <100 mg/dL Performed By: #### 3 , 2275-11 ####[facility] LABCLIA [id number] [place] [address] [place]#### 99610-1 ####[facility] LABCLIA [id number] [address] STATES OF [facility] [id number] [address] [place] Cholesterol.total/Cho lesterol in HDL [Mass ratio] 3.12 {ratio} Normal <5.10 [facility] Comment on above: Order Comment: Speci men Type: BLOOD SPECIMENOrdering Facility: External Submitter Address: , , Performed By: #### 3 -3, 2275-11 ####[facility] LABCLIA [id number] [place] [address] [place]#### 38090-0 ####[facility] LABCLIA [id number] [address] [id number] [address] STATES OF [facility] FASTING TIME 15 hrs Normal [facility] Comment on above: Order Comment: Speci men Type: BLOOD SPECIMENOrdering Facility: External Submitter Address: , , Performed By: #### 3 016-3, 2275-11 ####[facility] LABCLIA [id number] [place] [address] [place]#### 95556-4 ####[facility] LABCLIA [id number] [address] [id number] [place] [address] [place] Triglyceride [Mass/Vol] 166 mg/dL High <150 [facility] Comment on above: Order Comment: Speci men Type: BLOOD SPECIMENOrdering Facility: External Submitter Address: , , Result Comment: <150 mg/dL, Normal 150-199 mg/dL, Borderline high 200-499 mg/dL, High >499 mg/dL, Very high Performed By: #### 3 016-3, 2275-11 ####[facility] LABCLIA [id number] [place] [address] [place]#### 36524-5 ####[facility] LABCLIA [id number] [address] [id number] [place] [address] [place] Magnesium SerPl-mCncon 06-06 Magnesium [Mass/Vol] 2.2 mg/dL Normal 1.7-2.3 [facility] Comment on above: Order Comment: Speci men Type: BLOOD SPECIMENOrdering Facility: External Submitter Address: , , Performed By: #### 2 4323-8, 89475-9 ####[facility] [id number] [address] [place] PTH-Intact SerPl-mCncon 10-0 Parathyrin.intact [Mass/Vol] 66 pg/mL High 15-65 [facility] Comment on above: Order Comment: Speci men Type: BLOOD SPECIMENOrdering Facility: External Submitter Address: , , Performed By: #### 2 132-9, 965-8, 35509-05 ####[facility] LABCLIA [id number] [address] [place] TSH SerPl-aCncon 06-06-2024 TSH Qn 3.180 m[IU]/L Normal 0.270-4.200 [facility] Comment on above: Order Comment: Speci men Type: BLOOD SPECIMENOrdering Facility: External Submitter Address: , , Performed By: #### 3 016-3, 2276-4 ####[facility] LABCLIA [id number] [address] [place]#### 82794-7 ####[facility] LABCLIA [id number] [address] [id number] [address] [place] Vit B12 SerPl-mCncon 024 Cobalamin (Vitamin B12) [Mass/Vol] 767 pg/mL Normal 232-1245 [facility] Comment on above: Order Comment: Speci men Type: BLOOD SPECIMENOrdering Facility: External Submitter Address: , , Performed By: #### 2 132-9, 9830-8, 5198 ####[facility] LABCLIA [id number] [address] [place] [address] [place] [address] COMPLETE LEG WO IVCON RTo n 06-05-2024 CT COMPLETE LEG WO IVCON RT * * *Final Report* * * DATE OF EXAM: Jun 05 2024 1:52PM [facility] [address] - [address] COMPLETE LEG WO IVCON RT / PROCEDURE REASON: Other specified injuries of unspecified lower leg, initial encounter * * * * Physician Interpretation * * * * CT COMPLETE LEG WO IVCON RT HISTORY: Other specified injuries of unspecified lower leg, initial encounter . RT hip to foot pain, run over by lawnmower ,on blood thinners TECHNIQUE: Spiral CT scanning of right lower limb was performed in axial plane. Coronal and sagittal reconstructions were obtained from the original data set. CT Radiation dose: Integrated Dose-length product (DLP) for this visit = 1077 mGy*cm. CT Dose Reduction Employed: Automated exposure control(AEC) and iterative recon COMPARISON: None available. RESULT: There is no acute fracture or dislocation. Mild osteoarthritis. Mild muscle fatty changes. Tendons have normal appearance. Irregular hematoma in the posteromedial subcutaneous fat of the proximal leg measuring approximately 7.7 x 6.7 x 2.7 cm in its largest dimensions with adjacent subcutaneous fat edema. LOCALIZER IMAGES: No significant additional findings. IMPRESSION: 7.7 CM SUBCUTANEOUS HEMATOMA IN THE POSTEROMEDIAL PROXIMAL LEG WITH ADJACENT SUBCUTANEOUS FAT EDEMA. Patient Accounts Specialist: MURTAZA Transcribe Date/Time: Jun 05 2024 2:16P Dictated by : VIVIAN CALLE MD This examination was interpreted and the report reviewed and electronically signed by: VIVIAN CALLE MD on Jun 05 2024 2:22PM EST [id number] Normal [facility] CT Lower extremity - right W O contraston 06-05-2024 IMPRESSION: 7.7 CM SUBCUTANEOUS HEMATOMA IN THE POSTEROMEDIAL PROXIMAL LEG WITH ADJACENT SUBCUTANEOUS FAT EDEMA. Patient Accounts Specialist: [facility] Transcribe Date/Time: Jun 05 2024 2:16P Dictated by : VIVIAN CALLE MD This examination was interpreted and the report reviewed and electronically signed by: VIVIAN CALLE MD on Jun 05 2024 2:22PM EST DIVISION OF RADIOLOGY * * *Final Report* * * DATE OF EXAM: Jun 05 2024 1:52PM [facility] [address] - [address] COMPLETE LEG WO IVCON RT / PROCEDURE REASON: Other specified injuries of unspecified lower leg, initial encounter * * * * Physician Interpretation * * * * CT COMPLETE LEG WO IVCON RT HISTORY: Other specified injuries of unspecified lower leg, initial encounter . RT hip to foot pain, run over by lawnmower ,on blood thinners TECHNIQUE: Spiral CT scanning of right lower limb was performed in axial plane. Coronal and sagittal reconstructions were obtained from the original data set. CT Radiation dose: Integrated Dose-length product (DLP) for this visit = 1077 mGy*cm. CT Dose Reduction Employed: Automated exposure control(AEC) and iterative recon COMPARISON: None available. RESULT: There is no acute fracture or dislocation. Mild osteoarthritis. Mild muscle fatty changes. Tendons have normal appearance. Irregular hematoma in the posteromedial subcutaneous fat of the proximal leg measuring approximately 7.7 x 6.7 x 2.7 cm in its largest dimensions with adjacent subcutaneous fat edema. LOCALIZER IMAGES: No significant additional findings. DIVISION OF RADIOLOGY Provider, [facility] - 06/05/2024 * * *Final Report* * * DATE OF EXAM: Jun 05 2024 1:52PM [facility] 2008 - CT COMPLETE LEG WO IVCON RT / PROCEDURE REASON: Other specified injuries of unspecified lower leg, initial encounter * * * * Physician Interpretation * * * * CT COMPLETE LEG WO IVCON RT HISTORY: Other specified injuries of unspecified lower leg, initial encounter . RT hip to foot pain, run over by lawweeSpringower ,on blood thinners TECHNIQUE: Spiral CT scanning of right lower limb was performed in axial plane. Coronal and sagittal reconstructions were obtained from the original data set. CT Radiation dose: Integrated Dose-length product (DLP) for this visit = 1077 mGy*cm. CT Dose Reduction Employed: Automated exposure control(AEC) and iterative recon COMPARISON: None available. RESULT: There is no acute fracture or dislocation. Mild osteoarthritis. Mild muscle fatty changes. Tendons have normal appearance. Irregular hematoma in the posteromedial subcutaneous fat of the proximal leg measuring approximately 7.7 x 6.7 x 2.7 cm in its largest dimensions with adjacent subcutaneous fat edema. LOCALIZER IMAGES: No significant additional findings. IMPRESSION IMPRESSION: 7.7 CM SUBCUTANEOUS HEMATOMA IN THE POSTEROMEDIAL PROXIMAL LEG WITH ADJACENT SUBCUTANEOUS FAT EDEMA. Patient Accounts Specialist: PSCB Transcribe Date/Time: Jun 05 2024 2:16P Dictated by : VIVIAN CALLE MD This examination was interpreted and the report reviewed and electronically signed by: VIVIAN CALLE MD on Jun 05 2024 2:22PM EST [facility] Radiology Study observation (narrative) [facility] CT Lower extremity - right W O contrastOrdered By: Ccf Provider on 06-05-2024 [facility] No Panel Informationon 04-12 BLANK _ [facility] Implant Date 07/22/2020 [facility] PACEMAKER REMOTE CHECKon AV Delay Adaptive Paced Minimum (ms) 300 ms [facility] AV Delay Adaptive Sensed Minimum (ms) 270 ms [facility] AV Delay Paced (ms) 100 ms [facility] AV Delay Sensed (ms) 90 ms [facility] Steven RA Pacing Amplitude (volts) 2.0 V [facility] Steven RA Pacing Polarity BI [facility] Steven RA Pacing Pulse Width (ms) 0.4 ms [facility] Steven RA Sensing Amplitude (mvolts) 0.25 mV [facility] Steven RA Sensing Polarity BI [facility] Steven RV Pacing Amplitude (volts) 1.5 V [facility] Steven RV Pacing Polarity BI [facility] Steven RV Pacing Pulse Width (ms) 0.4 ms [facility] Steven RV Sensing Amplitude (mvolts) 1.5 mV [facility] Steven RV Sensing Polarity BI [facility] Lead1 [employer] [facility] Lead2 Mfg [facility] Location RA [facility] Location RV [facility] Lower Rate (bpm) 60 {beats}/min [facility] Model L331 ACCOLADE MRI EL [facility] Model 7841 Ingevity+IS-1 [facility] Model 7842 Ingevity+IS-1 [facility] Pacing Mode DDDR [facility] PM-Device Mfg BSX [facility] PM-Percent Pacing (A) 0 % [facility] PM-Percent Pacing (V) 25 % [facility] RA Bipolar Impedance ohms 641 ohm [facility] RV Bipolar Impedance ohms 647 ohm [facility] Serial Number [id number] [facility] Serial Number [id number] [facility] Serial Number [id number] [facility] Thresh RV Capture Amplitude (volts) 1.0 V [facility] Thresh RV Capture Duration (ms) 0.4 ms [facility] Tracking Rate (bpm) 130 {beats}/min [facility] PM remote interrogat ion. Presenting EGM: Atrial flutter @ 60-107 bpm, few ppm. Interrogation shows 50 SVT episodes , 71 NSVT episodes and mode switch chronic. Available binned episodes show Afib w/ RVR, rates to 186 bpm. Longest SVT binned episode 7 min, 59 sec in duration, max rate was 176 bpm. 1 NSVT binned episode (V6023) likely true VT, max rate to 224 bpm, episode aprox 4 sec in duration. Lead impedances and sensing measurements stable. Battery voltage stable. Recommended replacement time is 8 yrs. Kylee Figueroa RN NOTE TO PROVIDERS: CARD Flowsheets contain detailed device programming and testing data. Paceart/Interrogation PDF can be found under CARDIAC DATA AND REPORT, Scanned Documents section. PACEART 04/12/2024 Formattin g of this note might be different from the original. PM remote interrogation. Presenting EGM: Atrial flutter @ 60-107 bpm, few ppm. Interrogation shows 50 SVT episodes , 71 NSVT episodes and mode switch chronic. Available binned episodes show Afib w/ RVR, rates to 186 bpm. Longest SVT binned episode 7 min, 59 sec in duration, max rate was 176 bpm. 1 NSVT binned episode (V6023) likely true VT, max rate to 224 bpm, episode aprox 4 sec in duration. Lead impedances and sensing measurements stable. Battery voltage stable. Recommended replacement time is 8 yrs. Kylee Figueroa RN NOTE TO PROVIDERS: CARD Flowsheets contain detailed device programming and testing data. Paceart/Interrogation PDF can be found under CARDIAC DATA AND REPORT, Scanned Documents section. [facility] No Panel Informationon 12-28 BLANK _ [facility] Implant Date 07/22/2020 [facility] PACEMAKER REMOTE CHECKon AV Delay Adaptive Paced Minimum (ms) 300 ms [facility] AV Delay Adaptive Sensed Minimum (ms) 270 ms [facility] AV Delay Paced (ms) 100 ms [facility] AV Delay Sensed (ms) 90 ms [facility] Steven RA Pacing Amplitude (volts) 2.0 V [facility] Steven RA Pacing Polarity BI [facility] Steven RA Pacing Pulse Width (ms) 0.4 ms [facility] Steven RA Sensing Amplitude (mvolts) 0.25 mV [facility] Steven RA Sensing Polarity BI [facility] Steven RV Pacing Amplitude (volts) 1.5 V [facility] Steven RV Pacing Polarity BI [facility] Steven RV Pacing Pulse Width (ms) 0.4 ms [facility] Steven RV Sensing Amplitude (mvolts) 1.5 mV [facility] Steven RV Sensing Polarity BI [facility] Lead1 Mfg [employer] [facility] Lead2 M[employer] [facility] RA [facility] Location RV [facility] Lower Rate (bpm) 60 {beats}/min [facility] Model L331 ACCOLADE MRI EL [facility] Model 7841 Ingevity+IS-1 [facility] Model 7842 Ingevity+IS-1 [facility] Pacing Mode DDDR [facility] PM-Device Mfg BSX [facility] PM-Percent Pacing (A) 0 % [facility] PM-Percent Pacing (V) 24 % [facility] RA Bipolar Impedance ohms 651 ohm [facility] RV Bipolar Impedance ohms 691 ohm [facility] Serial Number [id number] [facility] Serial Number [id number] [facility] Serial Number [id number] [facility] Thresh RV Capture Amplitude (volts) 1.1 V [facility] Thresh RV Capture Duration (ms) 0.4 ms [facility] Tracking Rate (bpm) 130 {beats}/min [facility] PM remote interrogat ion. Presenting EGM shows Afib-VS. Device diagnostics binned 8 SVT events and 10 NST events. Available episode EGMs show Afib-RVR. Mode switch is chronic per device diagnostics. Lead impedances and sensing measurements stable. Battery voltage stable. Estimated battery longevity is 8.5 years. Xiao Linton RN NOTE TO PROVIDERS: CARD Flowsheets contain detailed device programming and testing data. Paceart/Interrogation PDF can be found under CARDIAC DATA AND REPORT, Scanned Documents section. PACEART 12/29/2023 Formattin g of this note might be different from the original. PM remote interrogation. Presenting EGM shows Afib-VS. Device diagnostics binned 8 SVT events and 10 NST events. Available episode EGMs show Afib-RVR. Mode switch is chronic per device diagnostics. Lead impedances and sensing measurements stable. Battery voltage stable. Estimated battery longevity is 8.5 years. Xiao Linton RN NOTE TO PROVIDERS: CARD Flowsheets contain detailed device programming and testing data. Paceart/Interrogation PDF can be found under CARDIAC DATA AND REPORT, Scanned Documents section. [facility] GGTon 08-20-2023 Gamma GT 25 U/L Normal 15-85 [facility] ([place]) Comment on above: Performed By: #### H FP, PRO #### [address] [address] #### GGT #### [address] [address] HFPon 08-20-2023 Bili Indirect 1.2 mg/dL Normal [facility] ([place]) Comment on above: Performed By: #### H FP, PRO #### [address] [address] #### GGT #### [address] [address] Albumin Level 3.2 G/dL Low 3.4-4.8 [facility] ([place]) Comment on above: Performed By: #### H FP, PRO #### [address] [address] #### GGT #### [address] [address] Albumin/Globulin [Mass ratio] 1.0 {ratio} Low 1.1-2.5 [facility] ([place]) Comment on above: Performed By: #### H FP, PRO #### [address] [address] #### GGT #### [address] [address] ALP [Catalytic activity/Vol] 90 U/L Normal 40-135 [facility] ([place]) Comment on above: Performed By: #### H FP, PRO #### [address] [address] #### GGT #### [address] [address] ALT [Catalytic activity/Vol] 29 U/L Normal 16-63 [facility] ([place]) Comment on above: Performed By: #### H FP, PRO #### [address] [address] #### GGT #### [address] [address] AST [Catalytic activity/Vol] 12 U/L Normal 10-40 [facility] ([place]) Comment on above: Performed By: #### H FP, PRO #### [address] [address] #### GGT #### [address] [address] Bili Direct 0.3 mg/dL High 0.0-0.2 [facility] ([place]) Comment on above: Result Comment: Use of this assay is not recommended for patients undergoing treatment with eltrombopag due to the potential for falsely elevated results. Performed By: #### H FP, PRO #### [address] [address] #### GGT #### [place] [address] Bili Total 1.5 mg/dL High 0.2-1.0 [facility] ([place]) Comment on above: Result Comment: Use of this assay is not recommended for patients undergoing treatment with eltrombopag due to the potential for falsely elevated results. Performed By: #### H FP, PRO #### [address] [address] #### GGT #### [address] [address] Globulin 3.3 G/dL Normal [facility] ([place]) Comment on above: Performed By: #### H FP, PRO #### [address] [address] #### GGT #### [place] [address] Total Protein 6.5 G/dL Normal 6.4-8.2 [facility] ([place]) Comment on above: Performed By: #### H FP, PRO #### [address], [place] [address] #### GGT #### [place] [id number] [place] [address] LABORATORYOrdered By: SYSTEM SYSTEM on 08-20-2023 Albumin BCP dye [Mass/Vol] 3.2 G/dL Low 3.4 - 4.8 G/dL AO ADM SS Albumin/Globulin [Mass ratio] 1.0 {ratio} Low 1.1 - 2.5 ratio AO ADM SS ALP [Catalytic activity/Vol] 90 U/L Normal 40 - 135 U/L AO ADM SS ALT With P-5'-P [Catalytic activity/Vol] 29 U/L Normal 16 - 63 U/L AO ADM SS AST With P-5'-P [Catalytic activity/Vol] 12 U/L Normal 10 - 40 U/L AO ADM SS Bilirubin [Mass/Vol] 1.5 mg/dL High 0.2 - 1 .0 mg/dL AO ADM SS Comment on above: Interpretive Data: U se of this assay is not recommended for patients undergoing treatment with eltrombopag due to the potential for falsely elevated results. Bilirubin.direct [Mass/Vol] 0.3 mg/dL High 0.0 - 0.2 mg/dL AO ADM SS Comment on above: Interpretive Data: U se of this assay is not recommended for patients undergoing treatment with eltrombopag due to the potential for falsely elevated results. Bilirubin.direct [Mass/Vol] 1.2 mg/dL Invalid Interpretation Code AO Chemistry S Gamma glutamyl transferase [Catalytic activity/Vol] 25 U/L Normal 15 - 85 U/L AH ADM SS Globulin 3.3 G/dL Invalid Interpretation Code AO ADM SS Protein [Mass/Vol] 6.5 G/dL Normal 6.4 - 8.2 G/dL AO ADM SS LABORATORYOrdered By: Katherine Holguin on 08-20-2023 INR Coag (PPP) [Relative time] 2.7 {INR} Invalid Interpretation Code AO [facility] SS Comment on above: Interpretive Data: Marcela flannery [employer] (CHEST, 1992, 102:312S-25S) recommended therapeutic range for oral anticoagulant therapy is: LOW RISK: Prophylaxis of venous thrombosis INR: 2.0-3.0 Treatment of pulmonary embolism 2.0-3.0 Prevention of systemic embolism 2.0-3.0 HIGH RISK: Mechanical prosthetic valves 2.5-3.5 PT Coag (PPP) [Time] 31.1 s High 9.0 - 1 4.2 seconds AO [facility] SS PROon 08-20-2023 PT Coag (PPP) [Time] 31.1 s High 9.0-14.2 [facility] ([place]) Comment on above: Order Comment: Call Dr. Ray with LISANDRA result at [phone] ([employer]) Do not let patient leave until speaking with Dr. Ray Coumadin dose, 6 mg Tue08/17/2023, 4 mg 08/18/2023, 5 mg Tuesday08/19/2023 Performed By: #### H FP, PRO #### [address] [address] #### GGT #### [facility] [address] [place] [address] PT International Ratio 2.7 Normal [facility] ([place]) Comment on above: Order Comment: Call Dr. Ray with LISANDRA result at [phone] ([employer]) Do not let patient leave until speaking with Dr. Ray Coumadin dose, 6 mg Tue08/17/2023, 4 mg 08/18/2023, 5 mg Tuesday08/19/2023 Result Comment: [employer] (CHEST, 1992, 102:312S-25S) recommended therapeutic range for oral anticoagulant therapy is: LOW RISK: Prophylaxis of venous thrombosis INR: 2.0-3.0 Treatment of pulmonary embolism 2.0-3.0 Prevention of systemic embolism 2.0-3.0 HIGH RISK: Mechanical prosthetic valves 2.5-3.5 Performed By: #### H FP, PRO #### [address] [address] #### GGT #### [facility] [address] [place] [address] Absolute lymphocyte countOrd ered By: Lazaro Ramirez on 08-18-2023 Lymphocytes Auto (Unsp spec) [#/Vol] 1.95 10*3/uL 0.83-4.51 [facility] Basophil percentageOrdered B y: Lazaro Ramirez on 08-18-2023 Basophils/100 WBC (Bld) 0.5 % 0-1 [facility] Chloride [Moles/Vol] 106 mmol/L 98-107 [facility] Eosinophils/100 WBC (Bld) 1.8 % 0-5 [facility] Glucose [Mass/Vol] 134 mg/dL 74-106 [facility] Comment on above: Fasting Glucose resu lt greater than or equal to 126 mg/dL suggests DIABETES MELLITUS per A.D.A. criteria. Neutrophils (Bld) [#/Vol] 7.1 10*3/uL 2.0-7.7 [facility] Neutrophils/100 WBC (Bld) 67.5 % 47-70 [facility] Potassium [Moles/Vol] 4.1 mmol/L 3.5-5.1 [facility] Sodium [Moles/Vol] 139 mmol/L 136-145 [facility] WBC (Bld) [#/Vol] 10.4 10*3/uL 4.4-11.0 [facility] Blood erythrocytes count (nu mber/volume)Ordered By: Lazaro Ramirez on 08-18-2023 RBC (Bld) [#/Vol] 4.39 10*6/uL 4.6-6.2 [facility] Blood hemoglobin measurement (mass/volume)Ordered By: Lazaro Ramirez on 08-18-2023 Hemoglobin (Bld) [Mass/Vol] 13.1 g/dL 13.0-16.5 [facility] Blood lymphocytes/100 leukoc ytesOrdered By: Lazaro Ramirez on 08-18-2023 Lymphocytes/100 WBC (Bld) 18.7 % 19-41 [facility] Blood monocytes/100 leukocyt esOrdered By: Lazaro Ramirez on 08-18-2023 Monocytes/100 WBC (Bld) 10.9 % 0-10 [facility] Blood platelet mean volumeOr dered By: Lazaro Ramirez on 08-18-2023 Platelet mean volume (Bld) [Entitic vol] 9.7 fL 6.2-12.0 [facility] Determination of erythrocyte mean corpuscular volume (MCV)Ordered By: Lazaro Ramirez on 12-21-2023 MCV (RBC) [Entitic vol] 91.1 fL 80-94 [facility] Hematocrit Auto (Bld) [Volum e fraction]Ordered By: Lazaro Ramirez on 08-18-2023 Hematocrit (Bld) [Volume fraction] 40.0 % 40-54 [facility] INR in Blood by Coagulation assayOrdered By: Lazaro Ramirez on 08-18-2023 INR Coag (Bld) [Relative time] 1.8 {INR} [facility] Laboratory - Chemistry and C hemistry - challengeOrdered By: Lazaro Ramirez on 08-18-2023 CO2 [Moles/Vol] 26.0 mmol/L 21.0-32.0 [facility] Urea nitrogen/Creatinine [Mass ratio] 20.8 mg/mg 10-20 [facility] Laboratory - CoagulationOrde red By: Lazaro Ramirez on 08-18-2023 PT Coag (PPP) [Time] 21.4 s 11.7-14.9 [facility] Laboratory - Hematology and Cell countsOrdered By: Lazaro Ramirez on 08-18-2023 Erythrocyte distribution width (RBC) [Entitic vol] 47.8 fL 35.1-43.9 [facility] Erythrocyte distribution width (RBC) [Ratio] 14.4 % 11.6-14.6 [facility] Immature granulocytes/100 WBC (Bld) 0.600 % 0.0-0.9 [facility] Comment on above: IG% - Immature Granu locytes (promyelocytes, myelocytes and metamyelocytes) > 1% indicates that a LEFT SHIFT is Present. MCH (RBC) [Entitic mass] 29.8 pg 27.0-32.0 [facility] Nucleated RBC/100 WBC (Bld) [Ratio] 0 % 0-5 [facility] MCHC Auto (RBC) [Mass/Vol]Or dered By: Lazaro Ramirez on 08-18-2023 MCHC (RBC) [Mass/Vol] 32.8 g/dL 32-36 [facility] No Panel InformationOrdered By: Lazaro Ramirez on 08-18-2023 Estimated Creatinine Clearance Calc 36.44 ml/min [facility] Estimated GFR (MDRD) Amer 45 mL/min >60 [facility] Comment on above: GFR Calc Estimated GFR (MDRD) Non-Af Amer 37 mL/min >60 [facility] Comment on above: Non- GFR Calc Platelets bldOrdered By: Daily Ramirez on 08-18-2023 Platelets (Bld) [#/Vol] 162 10*3/uL 150-450 [facility] Serum or plasma calcium ophelia urement (mass/volume)Ordered By: Lazaro aRmirez on 08-18-2023 Calcium [Mass/Vol] 8.9 mg/dL 8.5-10.1 [facility] Serum or plasma creatinine m easurement (mass/volume)Ordered By: Lazaro Ramirez on 08-18-2023 Creatinine [Mass/Vol] 1.92 mg/dL 0.70-1.30 [facility] Comment on above: The validity of the calculated GFR & GFRAA in patients over 70 years has not been determined. Clinical correlation is essential. Serum or plasma urea nitroge n measurement (mass/volume)Ordered By: Lazaro Ramirez on 08-18-2023 Urea nitrogen [Mass/Vol] 40 mg/dL 7-18 [facility] Thin prep Papanicolaou smear with manual screeningOrdered By: Lazaro Ramirez on 08-18-2023 Thin prep Papanicolaou smear with manual screening 7 5-15 [facility] BD BONE DENSITY DEXA AXIAL S KELETONon 06-20-2023 BD BONE DENSITY DEXA AXIAL SKELETON ORIGINAL EXAMINATION: BONE DENSITOMETRY 06/20/2023 1:04 pm TECHNIQUE: A bone density dual x-ray absorptiometry (DEXA) scan was performed of the lumbar spine and left hip. COMPARISON: None. HISTORY: Reason for Exam: Osteoporosis Screening FINDINGS: BMD (g/cm2) Lumbar Spine L1-L4: 1.216. T Score Lumbar Spine L1-L4: 1.1 BMD (g/cm2) Left Femoral Neck: 0.741. T Score Left Femoral Neck: -1.4 BMD (g/cm2) Left Hip: 0.972. T Score Left Hip: -0.4 FRAX: 10 year fracture risk assessment Major osteoporotic fracture: 5.5% Hip fracture: 1.1% IMPRESSION: Osteopenia. I have personally reviewed the images of this examination and agree with the resident's findings and interpretation. Interpreted by: Venkata Saldaña MD Preliminary Report By: Vazquez Lauren Electronically signed By Venkata Saldaña MD Dictated Date: 06/20/2023 1:04:54 PM Prelim Date: 06/20/2023 5:46:42 PM Sign Date: 06/20/2023 5:46:42 PM Ordering Provider: SMITHA RAY [facility] ([place]) XR SPINE LUMBAR W/OBLIQUES 4 VIEWSon 06-03-2023 XR SPINE LUMBAR W/OBLIQUES 4 VIEWS ORIGINAL EXAMINATION: AP lateral obliques 5 XRAY VIEWS OF THE LUMBAR SPINE05/30/2023 11:47 am COMPARISON: None HISTORY: ORDERING SYSTEM PROVIDED HISTORY: Reason for Exam: Persistent low back pain FINDINGS: There are 5 lumbar-type vertebral bodies. There is moderate L1 and mild L3 and L4 compression deformity of uncertain age. Alignment is within normal limits. There is mild disc space narrowing at L3-4 and mild to moderate lower lumbar spine facet arthropathy. No spondylolysis on the oblique views. Symmetric normal SI joints. An IVC filter is present on the right side at the L1-L3 levels. There are some calcifications in the right upper abdomen at the L1-L2 level of uncertain location possibly pancreatic. Mild calcification of aorta. IMPRESSION: Multiple lumbar compression deformities of uncertain age favor nonacute. Degenerative changes. No acute findings. Upper abdominal calcification of uncertain location. These could be in the pancreas less likely vascular. Location, etiology and significance is uncertain. Interpreted by: Clayton Boogie MD Preliminary Report By: Clayton Boogie MD Electronically signed By Clayton Boogie MD Dictated Date: 06/03/2023 6:30:43 PM Prelim Date: 06/03/2023 7:18:45 PM Sign Date: 06/03/2023 7:18:45 PM Ordering Provider: SMITHA RAY [facility] ([place]) No Panel Informationon 03-15 BLANK _ [facility] Implant Date 07/22/2020 [facility] PACEMAKER REMOTE CHECKon AV Delay Adaptive Paced Minimum (ms) 300 ms [facility] AV Delay Adaptive Sensed Minimum (ms) 270 ms [facility] AV Delay Paced (ms) 100 ms [facility] AV Delay Sensed (ms) 90 ms [facility] Steven RA Pacing Amplitude (volts) 2.0 V [facility] Steven RA Pacing Polarity BI [facility] Steven RA Pacing Pulse Width (ms) 0.4 ms [facility] Steven RA Sensing Amplitude (mvolts) 0.25 mV [facility] Steven RA Sensing Polarity BI [facility] Steven RV Pacing Amplitude (volts) 1.5 V [facility] Steven RV Pacing Polarity BI [facility] Steven RV Pacing Pulse Width (ms) 0.4 ms [facility] Steven RV Sensing Amplitude (mvolts) 1.5 mV [facility] Steven RV Sensing Polarity BI [facility] Lead1 [employer] [facility] Lead2 M[employer] [facility] Location RA [facility] Location RV [facility] Lower Rate (bpm) 60 {beats}/min [facility] Model L331 ACCOLADE MRI EL [facility] Model 7841 Ingevity+IS-1 [facility] Model 7842 Ingevity+IS-1 [facility] Pacing Mode DDDR [facility] PM-Device Mfg BSX [facility] PM-Percent Pacing (A) 0 % [facility] PM-Percent Pacing (V) 5 % [facility] RA Bipolar Impedance ohms 560 ohm [facility] RV Bipolar Impedance ohms 760 ohm [facility] Serial Number [id number] [facility] Serial Number [id number] [facility] Serial Number [id number] [facility] Thresh RV Capture Amplitude (volts) 1.0 V [facility] Thresh RV Capture Duration (ms) 0.4 ms [facility] Tracking Rate (bpm) 130 {beats}/min [facility] CBC panel Auto (Bld)on 12-13 Erythrocyte distribution width (RBC) [Ratio] 15.2 % High 11.5 - 15.0 % [facility] Hematocrit (Bld) [Volume fraction] 43.8 % 39.0 - 51.0 % [facility] Hemoglobin (Bld) [Mass/Vol] 14.4 g/dL 13.0 - 17.0 g/dL [facility] MCH (RBC) [Entitic mass] 29.1 pg 26.0 - 34.0 pg [facility] MCHC (RBC) [Mass/Vol] 32.9 g/dL 30.5 - 36.0 g/dL [facility] MCV (RBC) [Entitic vol] 88.7 fL 80.0 - 100.0 fL [facility] Nucleated RBC (Bld) [#/Vol] <0.01 k/uL [facility] Platelet mean volume (Bld) [Entitic vol] 9.5 fL 9.0 - 12.7 fL [facility] Platelets (Bld) [#/Vol] 181 10*3/uL 150 - 400 k/uL [facility] RBC (Bld) [#/Vol] 4.94 10*6/uL 4.20 - 6.0 0 m/uL [facility] WBC (Bld) [#/Vol] 7.62 10*3/uL 3.70 - 11.00 k/uL [facility] IMAGING GUIDED BIOPSY RENALo n 12-13-2022 [facility] PT panel Coag (PPP)on 2022 INR Coag (PPP) [Relative time] 1.2 {INR} 0.9 - 1.3 [facility] PT Coag (PPP) [Time] 12.4 s 9.7 - 1 3.0 sec [facility] No Panel Informationon 12-08 BLANK _ [facility] Implant Date 07/22/2020 [facility] PACEMAKER REMOTE CHECKon AV Delay Adaptive Paced Minimum (ms) 300 ms [facility] AV Delay Adaptive Sensed Minimum (ms) 270 ms [facility] AV Delay Paced (ms) 100 ms [facility] AV Delay Sensed (ms) 90 ms [facility] Steven RA Pacing Amplitude (volts) 2.0 V [facility] Steven RA Pacing Polarity BI [facility] Steven RA Pacing Pulse Width (ms) 0.4 ms [facility] Steven RA Sensing Amplitude (mvolts) 0.25 mV [facility] Steven RA Sensing Polarity BI [facility] Steven RV Pacing Amplitude (volts) 1.4 V [facility] Steven RV Pacing Polarity BI [facility] Steven RV Pacing Pulse Width (ms) 0.4 ms [facility] Steven RV Sensing Amplitude (mvolts) 1.5 mV [facility] Steven RV Sensing Polarity BI [facility] Lead1 Mfg [facility] Lead2 Mfg [facility] Location RA [facility] Location RV [facility] Lower Rate (bpm) 60 {beats}/min [facility] Model L331 ACCOLADE MRI EL [facility] Model 7841 Ingevity+IS-1 [facility] Model 7842 Ingevity+IS-1 [facility] Pacing Mode DDDR [facility] PM-Device Mfg BSX [facility] PM-Percent Pacing (A) 0 % [facility] PM-Percent Pacing (V) 4 % [facility] RA Bipolar Impedance ohms 606 ohm [facility] RV Bipolar Impedance ohms 743 ohm [facility] Serial Number [id number] [facility] Serial Number [id number] [facility] Serial Number [id number] [facility] Thresh RV Capture Amplitude (volts) 0.9 V [facility] Thresh RV Capture Duration (ms) 0.4 ms [facility] Tracking Rate (bpm) 130 {beats}/min [facility] MRI ABDOMEN WO/W IVCONon MRI ABDOMEN WO/W IVCON * * *Final Report* * * * * * SEE BOTTOM OF REPORT FOR ADDENDED TEXT * * * DATE OF EXAM: Nov 10 2022 12:06PM [facility] 0689 - MRI ABDOMEN WO/W IVCON / PROCEDURE REASON: N28.89-Other specified disorders of kidney and ureter * * * * Physician Interpretation * * * * * * * * * * * * ORIGINAL REPORT * * * * * * * * RENAL MRI WITHOUT AND WITH INTRAVENOUS WITH CONTRAST: CLINICAL HISTORY: Right nephrectomy for renal cell cancer COMPARISON: CT 09/29/2022. TECHNIQUE: Utilizing the torso phased-array coil, axial precontrast T1 weighted in- and [id number] and coronal HASTE images were performed. Then, dynamic imaging was performed using a 3-D T1 weighted GRE sequence before, during and after the administration of 20 cc of intravenous Dotarem. Multiple post processing techniques were performed. FINDINGS colon status post RIGHT nephrectomy. In the RIGHT renal bed there is an enhancing mass supplied by a single RIGHT renal artery. This mass has low to intermediate signal on precontrast T1 sequences and intermediate signal on HASTE sequences. Dimensions are 2.7 x 2.7 x 2.6 cm in diameter (16:47 and 17:41). The mass is bilaterally well defined with both the greater peripheral enhancement than central enhancement. There is a contiguous inferior and medial component of the mass which does not appear to demonstrate contrast enhancement (17:46 and 16:49 ). There is an adjacent medial nonenhancing density slightly T1 hyperintense and HASTE mildly hypointense measuring 5.2 x 2.4 3.0 cm consistent with a hematoma (4:25). Irregular stranding is also noted in the renal bed. The left kidney is normal in size. Multiple nonenhancing T1 hypointense/HASTE hyperintense masses consistent with cysts. Largest is inferior 2.6 cm in diameter. Evaluation of the left renal vasculature demonstrates a single renal artery, vein and collecting system. No renal artery stenosis is identified. There is probably a circumaortic LEFT renal artery with a small branch posterior to the aorta. There is no hydronephrosis. The kidneys enhance symmetrically. Generalized signal dropout in 1.9 x 1.3 cm RIGHT adrenal nodule The visualized portions of the liver, spleen, pancreas and LEFT adrenal gland are normal. The gallbladder is normal. There is no intrahepatic or extrahepatic biliary dilatation. IMPRESSION: Enhancing lesion in the renal bed could represent residual renal parenchymal tissue or neoplasm. There is adjacent hematoma. Right adrenal adenoma. Left renal cysts * * * * * * * * ADDENDUM #1 * * * * * * * * Correction: The patient is status post cholecystectomy. Patient Accounts Specialist[facility] Transcribe Date/Time: Dec 03 2022 12:20P Dictated by : DEREK POTTER MD This examination was interpreted and the report reviewed and electronically signed by: DEREK POTTER MD on Nov 10 2022 3:08PM EST This document has been addended by: DEREK POTTER MD on Dec 03 2022 12:20PM EST [id number] Normal [facility] NURSING PROGon 11-10-2022 NURSING PROG HNO ID: [id number] Author: Terri Gonsales RN Service: Nursing Author Type: Registered Nurse Type: Nursing Progress Note Filed: 11/10/2022 11:34 AM Note Text: Radiology Service Progress Note PATIENT NAME: Alisa Hagan DATE OF SERVICE: November 10, 2022 TIME: 11:15 AM PATIENT IDENTITY VERIFICATION COMPLETED USING TWO (2) STANDARD IDENTIFIERS: Name and Date of confirmed by patient verbally. PATIENT GENDER DATA: Male PATIENT RELEVANT IMPLANT DATA REVIEWED: Yes ALLERGIES: Reviewed and unchanged MEDICATIONS REVIEWED: YES PROCEDURE: MRI - Conditional Pacemaker IV SITE: Ambulatory: A peripheral IV was started in the Right with a Angio cath: 22 gauge. PERIPHERAL IV ACCESS: Discontinued PATIENT TOLERATED PROCEDURE: Without incident. PATIENT DISCHARGED TO: Home/Self Care SIGNED BY: Terri Gonsales RN November 10, 2022 11:15 AM [facility] No Panel Informationon 09-29 [facility] Final Surgical Pathology Rep [facility] 09-27-2022 Final Surgical Pathology Report . Pathology Reports Accession: Collected Date/Time: Received Date/Time: Pathologist: [id number] 09/23/2022 12:59 EST 09/24/2022 13:52 EST MUMTAZ LUGO MD Final Surgical Pathology Report DIAGNOSIS: SKIN, LEFT TEMPORAL REGION, BIOPSY: - BENIGN VERRUCAL KERATOSIS WITH INFLAMMATION AND REACTIVE CHANGES COMMENT: [facility] - [id number] CLINICAL INFORMATION: hyperkeratotic lesion left temporal region Procedure: shave removal/biopsy Preoperative diagnosis: neoplasm of undetermined significance Postoperative diagnosis: same SPECIMEN: A SKIN, LEFT TEMPORAL REGION GROSS DESCRIPTION: A. Received in formalin, labeled with the patients name, Case #[id number], and roman catholic lesion is a hines-tatum skin fragment measuring 0.4 x 0.2 x 0.2 cm. Excision margin inked black. Skin surface has a small white-tatum raised area measuring 0.2 x 0.2 cm. TS -1 Dictated by PAYTON HOOD MICROSCOPIC DESCRIPTION: The microscopic examination is performed, except in the case of Gross Only. Electronically Signed by Pathology Report verified by [facility] MUMTAZ LUGO Sign out Date: 09/27/2022 13:09 Performing Lab: [facility], [address] [place] [address] Pathology Dept [facility] ([place]) No Panel Informationon 08-26 BLANK _ [facility] Implant Date 07/21/2020 [facility] PACEMAKER REMOTE CHECKon AV Delay Adaptive Paced Minimum (ms) 300 ms [facility] AV Delay Adaptive Sensed Minimum (ms) 270 ms [facility] AV Delay Paced (ms) 100 ms [facility] AV Delay Sensed (ms) 90 [facility] Steven RA Pacing Amplitude (volts) 2 V [facility] Steven RA Pacing Polarity BI [facility] Steven RA Pacing Pulse Width (ms) 0.4 ms [facility] Steven RA Sensing Amplitude (mvolts) 0.25 mV [facility] Steven RA Sensing Polarity BI [facility] Steven RV Pacing Amplitude (volts) 1.5 V [facility] Steven RV Pacing Polarity BI [facility] Steven RV Pacing Pulse Width (ms) 0.4 ms [facility] Steven RV Sensing Amplitude (mvolts) 1.5 mV [facility] Steven RV Sensing Polarity BI [facility] Lead1 [employer] [facility] Lead2 M[employer] [facility] Location RA [facility] Location RV [facility] Lower Rate (bpm) 60 {beats}/min [facility] Model L331 ACCOLADE MRI EL [facility] Model 7841 Ingevity+IS-1 [facility] Model 7842 Ingevity+IS-1 [facility] Pacing Mode DDDR [facility] PM-Device Mfg BSX [facility] PM-Percent Pacing (A) 0 % [facility] PM-Percent Pacing (V) 2 % [facility] RA Bipolar Impedance ohms 711 ohm [facility] RV Bipolar Impedance ohms 725 ohm [facility] Serial Number [id number] [facility] Serial Number [id number] [facility] Serial Number [id number] [facility] Thresh RV Capture Amplitude (volts) 1 V [facility] Thresh RV Capture Duration (ms) 0.4 ms [facility] Tracking Rate (bpm) 130 {beats}/min [facility] LABORATORYOrdered By: Katherine Holguin on 07-17-2022 Basophil, Absolute 0.1 103/mcL Invalid Interpretation Code 0.0 - 0.2 10^3/mcL AO Workflow SS Basophils/100 WBC (Bld) 0.8 % Invalid Interpretation Code 0.0 - 2.5 % AO Workflow SS Calcium [Mass/Vol] 9.3 mg/dL Invalid Interpretation Code 8.4 - 10.2 mg/dL AO ADM SS Chloride [Moles/Vol] 102 mmol/L Invalid Interpretation Code 98 - 107 mmol/L AO ADM SS CO2 [Moles/Vol] 28 mmol/L Invalid Interpretation Code 23 - 31 mmol/L AO ADM SS Creatinine [Mass/Vol] 1.98 mg/dL Invalid Interpretation Code 0.70 - 1.30 mg/dL AO ADM SS Electrolyte Balance 9.0 mEq/L Invalid Interpretation Code 4.0 - 15.0 mEq/L AO ADM SS Eosinophil, Absolute 0.3 103/mcL Invalid Interpretation Code 0.0 - 0.4 10^3/mcL AO Workflow SS Eosinophils/100 WBC (Bld) 4.3 % Invalid Interpretation Code 0.0 - 7.0 % AO Workflow SS Erythrocyte distribution width (RBC) [Ratio] 15.3 % Invalid Interpretation Code 11.5 - 14.5 % AO Workflow SS Glucose [Mass/Vol] 145 mg/dL Invalid Interpretation Code 83 - 110 mg/dL AO ADM SS Hematocrit (Bld) [Volume fraction] 36.3 % Invalid Interpretation Code 42.0 - 52.0 % AO Workflow SS Hemoglobin (Bld) [Mass/Vol] 12.0 G/dL Invalid Interpretation Code 14.0 - 18.0 G/dL AO Workflow SS INR Coag (PPP) [Relative time] 1.3 {INR} Invalid Interpretation Code 0.9 - 1.2 ratio AO Coag SS Lymphocyte, Absolute 1.1 103/mcL Invalid Interpretation Code 0.8 - 3.9 10^3/mcL AO Workflow SS Lymphocytes/100 WBC (Bld) 15.7 % Invalid Interpretation Code 10.0 - 50.0 % AO Workflow SS MCH (RBC) [Entitic mass] 28.3 pg Invalid Interpretation Code 27.0 - 31.2 pg AO Workflow SS MCHC 33.0 G/dL Invalid Interpretation Code 31.8 - 35.4 G/dL AO Workflow SS MCV (RBC) [Entitic vol] 85.9 fL Invalid Interpretation Code 80.0 - 94.0 fL AO Workflow SS Monocyte, Absolute 0.7 103/mcL Invalid Interpretation Code 0.2 - 1.0 10^3/mcL AO Workflow SS Monocytes/100 WBC (Bld) 9.4 % Invalid Interpretation Code 1.7 - 13.0 % AO Workflow SS Neutrophil, Absolute 5.0 103/mcL Invalid Interpretation Code 2.9 - 6.2 10^3/mcL AO Workflow SS Neutrophils/100 WBC (Bld) 69.8 % Invalid Interpretation Code 37.0 - 80.0 % AO Workflow SS Platelet mean volume (Bld) [Entitic vol] 6.7 fL Invalid Interpretation Code 7.4 - 10.4 fL AO Workflow SS Platelets (Bld) [#/Vol] 278 103/mcL Invalid Interpretation Code 130 - 400 10^3/mcL AO Workflow SS Potassium [Moles/Vol] 4.6 mmol/L Invalid Interpretation Code 3.5 - 5.1 mmol/L AO ADM SS PT Coag (PPP) [Time] 14.8 s Invalid Interpretation Code 9.7 - 13.9 seconds AO Coag SS Comment on above: Result Comment: Call ed to Flor at 1056/nv RBC (Bld) [#/Vol] 4.23 106/mcL Invalid Interpretation Code 4.04 - 6.13 10^6/mcL AO Workflow SS Sodium [Moles/Vol] 139 mmol/L Invalid Interpretation Code 136 - 145 mmol/L AO ADM SS Urea nitrogen [Mass/Vol] 27 mg/dL Invalid Interpretation Code 7 - 18 mg/dL AO ADM SS Urea nitrogen/Creatinine [Mass ratio] 14 ratio Invalid Interpretation Code 7 - 27 ratio AO ADM SS WBC (Bld) [#/Vol] 7.2 103/mcL Invalid Interpretation Code 4.6 - 10.8 10^3/mcL AO Workflow SS LABORATORYOrdered By: SYSTEM SYSTEM on 07-17-2022 GFR 41 ml/min/1.73sqm Invalid Interpretation Code AO Chemistry S GFR Non- 34 ml/min/1.73sqm Invalid Interpretation Code AO Chemistry S PT panel Coag (PPP)on 2021 INR Coag (PPP) [Relative time] 1.9 {INR} High 0.9-1.3 [facility] Comment on above: Order Comment: Speci men Type: BLOOD SPECIMEN Ordering Facility: [facility] Lorikrystian Taylor Address: [address] [place] [address] Result Comment: Fabiola min K Antagonist (VKA) Therapeutic Range: INR 2 to 3 (Target INR of 2.5) Note: For patients treated with VKA drugs, such as warfarin, the [employer] 2012 Guideline recommends a therapeutic INR range of 2 to 3 (target INR of 2.5). This recommendation includes high-risk patients with antiphospholipid syndrome with previous arterial or venous thromboembolism, current-generation mechanical or bioprosthetic aortic heart valve replacement. Note: Patients with mechanical aortic valve replacement and additional risk factors for thromboembolic events (atrial fibrillation, previous thromboembolism, LV dysfunction, hypercoagulable conditions) or an older generation mechanical AVR (i.e., ball in-Cage) or any mechanical MVR should have a INR therapeutic range of 2.5 to 3.5 (target INR of 3). Genaro VELEZ, et al. Chest 2012, 141:7S-47S Parris RA, et al. [facility] 2017, 70: 252-289 Performed By: #### 5 8410-2 #### [facility] CLIA [id number] [address] [place] [address] [place] PT Coag (PPP) [Time] 19.1 s High 9.7-13.[address] [facility] Comment on above: Order Comment: Speci men Type: BLOOD SPECIMEN Ordering Facility: [facility] Address: [address] [place] [address] Performed By: #### 5 8410-2 #### [facility] CLIA [id number] [address] [place] Basic metabolic 2000 panelon 07-08-2022 Anion gap [Moles/Vol] 10 mmol/L Normal 9-18 [facility] Comment on above: Order Comment: Speci men Type: BLOOD SPECIMEN Ordering Facility: [facility] Address: [address] [place] [address] Performed By: #### 2 4321-2 #### [facility] CLIA [id number] [address] [place] [address] [place] Calcium [Mass/Vol] 8.2 mg/dL Low 8.5-10.2 [facility] Comment on above: Order Comment: Speci men Type: BLOOD SPECIMEN Ordering Facility: [facility] Address: [address] [place] [address] Performed By: #### 2 4321-2 #### [facility] CLIA [id number] [address] STATES OF [facility] Chloride [Moles/Vol] 102 mmol/L Normal 97-[address] [facility] Comment on above: Order Comment: Speci men Type: BLOOD SPECIMEN Ordering Facility: [facility] Address: [address] [place] [address] Performed By: #### 2 4321-2 #### [facility] CLIA [id number] [address] [place] CO2 [Moles/Vol] 25 mmol/L Normal 22-30 [facility] Comment on above: Order Comment: Speci men Type: BLOOD SPECIMEN Ordering Facility: [facility] Address: [address] [place] [address] Performed By: #### 2 4321-2 #### [facility] CLIA [id number] [address] STATES OF [facility] Creatinine [Mass/Vol] 1.99 mg/dL High 0.73-1.22 [facility] Comment on above: Order Comment: Mynor clark Type: BLOOD SPECIMEN Ordering Facility: [facility] Address: [address] [place] [address] Performed By: #### 2 4321-2 #### [facility] CLIA [id number] [address] [place] ESTIMATED GLOMERULAR FILTRATION RATE 36 mL/min/1.73m??? Low >=60 [facility] Comment on above: Order Comment: Mynor clark Type: BLOOD SPECIMEN Ordering Facility: [facility] Address: [address] [place] [address] Result Comment: Susi mated Glomerular Filtration Rate (eGFR) is calculated using the 2020 CKD-EPI creatinine equation. This equation utilizes serum creatinine, sex, and age as parameters. The creatinine assay has traceable calibration to isotope dilution-mass spectrometry. Refer to KDIGO guidelines for clinical interpretation. In patients with unstable renal function, e.g. those with acute kidney injury, the eGFR may not accurately reflect actual GFR. Performed By: #### 2 4321-2 #### [facility] CLIA [id number] [address] [place] Glucose [Mass/Vol] 118 mg/dL High 74-99 [facility] Comment on above: Order Comment: Mynor clark Type: BLOOD SPECIMEN Ordering Facility: [facility] Address: [address] [place] [address] Result Comment: The [employer] (ADA) provides guidance for cutoff values for fasting glucose and random glucose. The ADA defines fasting as no caloric intake for at least 8 hours. Fasting plasma glucose results between 100 to 125 mg/dL indicate increased risk for diabetes (prediabetes). Fasting plasma glucose results greater than or equal to 126 mg/dL meet the criteria for diagnosis of diabetes. In the absence of unequivocal hyperglycemia, results should be confirmed by repeat testing. In a patient with classic symptoms of hyperglycemia or hyperglycemic crisis, random plasma glucose results greater than or equal to 200 mg/dL meet the criteria for diagnosis of diabetes. Reference: Standards of Medical Care in Diabetes 2016, [employer]. Diabetes Care. 2016.39(Suppl 1). Performed By: #### 2 4321-2 #### [facility] CLIA [id number] [address] STATES OF [facility] Potassium [Moles/Vol] 4.6 mmol/L Normal 3.7-5.1 [facility] Comment on above: Order Comment: Oseasi clark Type: BLOOD SPECIMEN Ordering Facility: [facility] Address: [address] [place] [address] Performed By: #### 2 4321-2 #### [facility] CLIA [id number] [address] Sodium [Moles/Vol] 137 mmol/L Normal 136-144 [facility] Comment on above: Order Comment: Mynor rodas Type: BLOOD SPECIMEN Ordering Facility: [facility] Address: [address] [place] [address] Performed By: #### 2 4321-2 #### [facility] CLIA [id number] [address] STATES [facility] Urea nitrogen [Mass/Vol] 33 mg/dL High 9-24 [facility] Comment on above: Order Comment: Mynor rodas Type: BLOOD SPECIMEN Ordering Facility: [facility] Address: [address] [place] [address] Performed By: #### 2 4321-2 #### [facility] CLIA [id number] [address] CBC panel Auto (Bld)on 07-08 Erythrocyte distribution width (RBC) [Ratio] 15.3 % High 11.5-15.0 [facility] Comment on above: Order Comment: Oseasi men Type: BLOOD SPECIMEN Ordering Facility: [facility] Address: [address] [place] [address] Performed By: #### 5 8410-2 #### [facility] CLIA [id number] [address] Hematocrit (Bld) [Volume fraction] 29.8 % Low 39.0-51.0 [facility] Comment on above: Order Comment: Speci men Type: BLOOD SPECIMEN Ordering Facility: [facility] Address: [address] [place] [address] Performed By: #### 5 8410-2 #### [facility] CLIA [id number] [address] [place] Hemoglobin (Bld) [Mass/Vol] 9.2 g/dL Low 13.0-17.0 [facility] Comment on above: Order Comment: Speci men Type: BLOOD SPECIMEN Ordering Facility: [facility] Address: [address] [place] [address] Performed By: #### 5 8410-2 #### [facility] CLIA [id number] [address] MCH (RBC) [Entitic mass] 28.7 pg Normal 26.0-34.0 [facility] Comment on above: Order Comment: Speci men Type: BLOOD SPECIMEN Ordering Facility: [facility] Address: [address] [place] [address] Performed By: #### 5 8410-2 #### [facility] CLIA [id number] [address] OF [facility] MCHC (RBC) [Mass/Vol] 30.9 g/dL Normal 30.5-36.0 [facility] Comment on above: Order Comment: Speci men Type: BLOOD SPECIMEN Ordering Facility: [facility] Address: [address] [place] [address] Performed By: #### 5 8410-2 #### [facility] CLIA [id number] [address] MCV (RBC) [Entitic vol] 92.8 fL Normal 80.0-100.0 [facility] Comment on above: Order Comment: Speci men Type: BLOOD SPECIMEN Ordering Facility: [facility] Address: [address] [place] [address] Performed By: #### 5 8410-2 #### [facility] CLIA [id number] [address] [place] [address] [place] Nucleated RBC (Bld) [#/Vol] 10*3/uL Normal <0.01 [facility] Comment on above: Order Comment: Speci men Type: BLOOD SPECIMEN Ordering Facility: [facility] Address: [address] [place] [address] Performed By: #### 5 8410-2 #### [facility] CLIA [id number] [address] [place] [address] [place] Platelet mean volume (Bld) [Entitic vol] 9.4 fL Normal 9.0-12.7 [facility] Comment on above: Order Comment: Speci men Type: BLOOD SPECIMEN Ordering Facility: [facility] Address: [address] [place] [address] Performed By: #### 5 8410-2 #### [facility] CLIA [id number] [address] [place] Platelets (Bld) [#/Vol] 305 10*3/uL Normal 150-400 [facility] Comment on above: Order Comment: Speci men Type: BLOOD SPECIMEN Ordering Facility: [facility] Address: [address] [place] [address] Performed By: #### 5 8410-2 #### [facility] CLIA [id number] [address] [place] RBC (Bld) [#/Vol] 3.21 10*6/uL Low 4.20-6.00 [facility] Comment on above: Order Comment: Speci men Type: BLOOD SPECIMEN Ordering Facility: [facility] Address: [address] [place] [address] Performed By: #### 5 8410-2 #### [facility] CLIA [id number] [address] OF [facility] WBC (Bld) [#/Vol] 7.88 10*3/uL Normal 3.70-11.00 [facility] Comment on above: Order Comment: Speci men Type: BLOOD SPECIMEN Ordering Facility: [facility] Address: [address] [place] [address] Performed By: #### 5 8410-2 #### [facility] CLIA [id number] [address] [place] [address] [place] Magnesium SerPl-mCncon 07-08 Magnesium [Mass/Vol] 1.9 mg/dL Normal 1.7-2.[address] [facility] Comment on above: Order Comment: Mynor rodas Type: BLOOD SPECIMEN Ordering Facility: [facility] Address: [address] [place] [address] Performed By: #### 5 8410-2 #### [facility] CLIA [id number] [address] STATES [facility] PT panel Coag (PPP)on 2021 INR Coag (PPP) [Relative time] 2.0 {INR} High 0.9-1.3 [facility] Comment on above: Order Comment: Mynor rodas Type: BLOOD SPECIMEN Ordering Facility: [facility] Address: [address] [place] [address] Result Comment: Fabiola min K Antagonist (VKA) Therapeutic Range: INR 2 to 3 (Target INR of 2.5) Note: For patients treated with VKA drugs, such as warfarin, the [employer] 2012 Guideline recommends a therapeutic INR range of 2 to 3 (target INR of 2.5). This recommendation includes high-risk patients with antiphospholipid syndrome with previous arterial or venous thromboembolism, current-generation mechanical or bioprosthetic aortic heart valve replacement. Note: Patients with mechanical aortic valve replacement and additional risk factors for thromboembolic events (atrial fibrillation, previous thromboembolism, LV dysfunction, hypercoagulable conditions) or an older generation mechanical AVR (i.e., ball in-Cage) or any mechanical MVR should have a INR therapeutic range of 2.5 to 3.5 (target INR of 3). Genaro GH, et al. Chest 2012, 141:7S-47S Parris MORAN et al. [facility] 2017, 70: 252-289 Performed By: #### 5 8410-2 #### [facility] CLIA [id number] [address] [place] PT Coag (PPP) [Time] 20.1 s High 9.7-13.[address] [facility] Comment on above: Order Comment: Speci men Type: BLOOD SPECIMEN Ordering Facility: [facility] Address: [address] [place] [address] Performed By: #### 5 8410-2 #### [facility] CLIA [id number] [address] [place] PT panel Coag (PPP)on 2021 INR Coag (PPP) [Relative time] 2.0 {INR} High 0.9-1.3 [facility] Comment on above: Order Comment: Speci men Type: BLOOD SPECIMEN Ordering Facility: [facility] Address: [address] [place] [address] Result Comment: Fabiola min K Antagonist (VKA) Therapeutic Range: INR 2 to 3 (Target INR of 2.5) Note: For patients treated with VKA drugs, such as warfarin, the [employer] 2012 Guideline recommends a therapeutic INR range of 2 to 3 (target INR of 2.5). This recommendation includes high-risk patients with antiphospholipid syndrome with previous arterial or venous thromboembolism, current-generation mechanical or bioprosthetic aortic heart valve replacement. Note: Patients with mechanical aortic valve replacement and additional risk factors for thromboembolic events (atrial fibrillation, previous thromboembolism, LV dysfunction, hypercoagulable conditions) or an older generation mechanical AVR (i.e., ball in-Cage) or any mechanical MVR should have a INR therapeutic range of 2.5 to 3.5 (target INR of 3). Genaro GH, et al. Chest 2012, 141:7S-47S Parris RA, et al. [facility] 2017, 70: 252-289 Performed By: #### 5 8410-2 #### [facility] CLIA [id number] [address] [place] PT Coag (PPP) [Time] 20.1 s High 9.7-13.[address] [facility] Comment on above: Order Comment: Speci men Type: BLOOD SPECIMEN Ordering Facility: [facility] Address: [address] [place] [address] Performed By: #### 5 8410-2 #### [facility] CLIA [id number] [address] [place] [address] [place] Basic metabolic 2000 panelon 07-06-2022 Anion gap [Moles/Vol] 8 mmol/L Low 9-18 [facility] Comment on above: Order Comment: Speci men Type: BLOOD SPECIMEN Ordering Facility: [facility] Address: [address] [place] [address] Performed By: #### 2 4321-2 #### [facility] CLIA [id number] [address] [place] [address] [place] Calcium [Mass/Vol] 8.5 mg/dL Normal 8.5-10.2 [facility] Comment on above: Order Comment: Speci men Type: BLOOD SPECIMEN Ordering Facility: [facility] Address: [address] [place] [address] Performed By: #### 2 4321-2 #### [facility] CLIA [id number] [address] [place] [address] [place] Chloride [Moles/Vol] 99 mmol/L Normal 97-[address] [facility] Comment on above: Order Comment: Speci men Type: BLOOD SPECIMEN Ordering Facility: [facility] Address: [address] [place] [address] Performed By: #### 2 4321-2 #### [facility] CLIA [id number] [address] [place] [address] [place] CO2 [Moles/Vol] 30 mmol/L Normal 22-30 [facility] Comment on above: Order Comment: Speci men Type: BLOOD SPECIMEN Ordering Facility: [facility] Address: [address] [place] [address] Performed By: #### 2 4321-2 #### [facility] CLIA [id number] [address] [place] [address] [place] Creatinine [Mass/Vol] 2.22 mg/dL High 0.73-1.22 [facility] Comment on above: Order Comment: Speci men Type: BLOOD SPECIMEN Ordering Facility: [facility] Address: [address] [place] [address] Performed By: #### 2 4321-2 #### [facility] CLIA [id number] [address] [place] [address] [place] ESTIMATED GLOMERULAR FILTRATION RATE 31 mL/min/1.73m??? Low >=60 [facility] Comment on above: Order Comment: Mynor rodas Type: BLOOD SPECIMEN Ordering Facility: [facility] Address: [address] [place] [address] Result Comment: Susi mated Glomerular Filtration Rate (eGFR) is calculated using the 2020 CKD-EPI creatinine equation. This equation utilizes serum creatinine, sex, and age as parameters. The creatinine assay has traceable calibration to isotope dilution-mass spectrometry. Refer to KDIGO guidelines for clinical interpretation. In patients with unstable renal function, e.g. those with acute kidney injury, the eGFR may not accurately reflect actual GFR. Performed By: #### 2 4321-2 #### [facility] CLIA [id number] [address] [place] [address] [place] Glucose [Mass/Vol] 126 mg/dL High 74-99 [facility] Comment on above: Order Comment: [facility] Type: BLOOD SPECIMEN Ordering Facility: [facility] Address: [address] [place] [address] Result Comment: The [employer] Diabetes Association (ADA) provides guidance for cutoff values for fasting glucose and random glucose. The ADA defines fasting as no caloric intake for at least 8 hours. Fasting plasma glucose results between 100 to 125 mg/dL indicate increased risk for diabetes (prediabetes). Fasting plasma glucose results greater than or equal to 126 mg/dL meet the criteria for diagnosis of diabetes. In the absence of unequivocal hyperglycemia, results should be confirmed by repeat testing. In a patient with classic symptoms of hyperglycemia or hyperglycemic crisis, random plasma glucose results greater than or equal to 200 mg/dL meet the criteria for diagnosis of diabetes. Reference: Standards of Medical Care in Diabetes 2016, [employer]. Diabetes Care. 2016.39(Suppl 1). Performed By: #### 2 4321-2 #### [facility] CLIA [id number] [address] [place] [address] [place] Potassium [Moles/Vol] 3.8 mmol/L Normal 3.7-5.1 [facility] Comment on above: Order Comment: Mynor rodas Type: BLOOD SPECIMEN Ordering Facility: [facility] Address: [address] [place] [address] Performed By: #### 2 4321-2 #### [facility] CLIA [id number] [address] Sodium [Moles/Vol] 137 mmol/L Normal 136-144 [facility] Comment on above: Order Comment: Mynor rodas Type: BLOOD SPECIMEN Ordering Facility: [facility] Address: [address] [place] [address] Performed By: #### 2 4321-2 #### [facility] CLIA [id number] [address] [place] Urea nitrogen [Mass/Vol] 37 mg/dL High 9-24 [facility] Comment on above: Order Comment: Mynor rodas Type: BLOOD SPECIMEN Ordering Facility: [facility] Address: [address] [place] [address] Performed By: #### 2 4321-2 #### [facility] CLIA [id number] [address] [place] PT panel Coag (PPP)on 2021 INR Coag (PPP) [Relative time] 1.9 {INR} High 0.9-1.3 [facility] Comment on above: Order Comment: Mynor rodas Type: BLOOD SPECIMEN Ordering Facility: [facility] Address: [address] [place] [address] Result Comment: Fabiola min K Antagonist (VKA) Therapeutic Range: INR 2 to 3 (Target INR of 2.5) Note: For patients treated with VKA drugs, such as warfarin, the [employer] 2012 Guideline recommends a therapeutic INR range of 2 to 3 (target INR of 2.5). This recommendation includes high-risk patients with antiphospholipid syndrome with previous arterial or venous thromboembolism, current-generation mechanical or bioprosthetic aortic heart valve replacement. Note: Patients with mechanical aortic valve replacement and additional risk factors for thromboembolic events (atrial fibrillation, previous thromboembolism, LV dysfunction, hypercoagulable conditions) or an older generation mechanical AVR (i.e., ball in-Cage) or any mechanical MVR should have a INR therapeutic range of 2.5 to 3.5 (target INR of 3). Genaro GH, et al. Chest 2012, 141:7S-47S Parris RA, et al. [facility] 2017, 70: 252-289 Performed By: #### 5 8410-2 #### [facility] CLIA [id number] [address] [place] [address] [place] PT Coag (PPP) [Time] 18.6 s High 9.7-13.[address] [facility] Comment on above: Order Comment: Speci men Type: BLOOD SPECIMEN Ordering Facility: [facility] Address: [address] [place] [address] Performed By: #### 5 8410-2 #### [facility] CLIA [id number] [address] OF [facility] Basic metabolic 2000 panelon 07-05-2022 Anion gap [Moles/Vol] 16 mmol/L Normal 9-18 [facility] Comment on above: Order Comment: Speci men Type: BLOOD SPECIMEN Ordering Facility: [facility] Address: [address] [place] [address] Performed By: #### 1 9123-9 #### [facility] CLIA [id number] [address] [place] [address] [place] Calcium [Mass/Vol] 8.5 mg/dL Normal 8.5-10.2 [facility] Comment on above: Order Comment: Speci men Type: BLOOD SPECIMEN Ordering Facility: [facility] Address: [address] [place] [address] Performed By: #### 1 9123-9 #### [facility] CLIA [id number] [address] [place] Chloride [Moles/Vol] 97 mmol/L Normal 97-[address] [facility] Comment on above: Order Comment: Speci men Type: BLOOD SPECIMEN Ordering Facility: [facility] Address: [address] [place] [address] Performed By: #### 1 9123-9 #### [facility] CLIA [id number] [address] [place] [address] [place] CO2 [Moles/Vol] 25 mmol/L Normal 22-30 [facility] Comment on above: Order Comment: Mynor rodas Type: BLOOD SPECIMEN Ordering Facility: [facility] Address: [address] [place] [address] Performed By: #### 1 9123-9 #### [facility] CLIA [id number] [address] [place] Creatinine [Mass/Vol] 2.34 mg/dL High 0.73-1.22 [facility] Comment on above: Order Comment: Mynor men Type: BLOOD SPECIMEN Ordering Facility: [facility] Address: [address] [place] [address] Performed By: #### 1 9123-9 #### [facility] CLIA [id number] [address] [place] ESTIMATED GLOMERULAR FILTRATION RATE 29 mL/min/1.73m??? Low >=60 [facility] Comment on above: Order Comment: Mynor rodas Type: BLOOD SPECIMEN Ordering Facility: [facility] Address: [address] [place] [address] Result Comment: Susi mated Glomerular Filtration Rate (eGFR) is calculated using the 2020 CKD-EPI creatinine equation. This equation utilizes serum creatinine, sex, and age as parameters. The creatinine assay has traceable calibration to isotope dilution-mass spectrometry. Refer to KDIGO guidelines for clinical interpretation. In patients with unstable renal function, e.g. those with acute kidney injury, the eGFR may not accurately reflect actual GFR. Performed By: #### 1 9123-9 #### [facility] CLIA [id number] [address] [place] Glucose [Mass/Vol] 135 mg/dL High 74-99 [facility] Comment on above: Order Comment: Mynor clark Type: BLOOD SPECIMEN Ordering Facility: [facility] Address: [address] [place] [address] Result Comment: The [employer] Diabetes Association (ADA) provides guidance for cutoff values for fasting glucose and random glucose. The ADA defines fasting as no caloric intake for at least 8 hours. Fasting plasma glucose results between 100 to 125 mg/dL indicate increased risk for diabetes (prediabetes). Fasting plasma glucose results greater than or equal to 126 mg/dL meet the criteria for diagnosis of diabetes. In the absence of unequivocal hyperglycemia, results should be confirmed by repeat testing. In a patient with classic symptoms of hyperglycemia or hyperglycemic crisis, random plasma glucose results greater than or equal to 200 mg/dL meet the criteria for diagnosis of diabetes. Reference: Standards of Medical Care in Diabetes 2016, [employer]. Diabetes Care. 2016.39(Suppl 1). Performed By: #### 1 9123-9 #### [facility] CLIA [id number] [address] Potassium [Moles/Vol] 4.3 mmol/L Normal 3.7-5.1 [facility] Comment on above: Order Comment: Mynor rodas Type: BLOOD SPECIMEN Ordering Facility: [facility] Address: [address] [place] [address] Performed By: #### 1 9123-9 #### [facility] CLIA [id number] [address] Sodium [Moles/Vol] 138 mmol/L Normal 136-144 [facility] Comment on above: Order Comment: Mynor rodas Type: BLOOD SPECIMEN Ordering Facility: [facility] Address: [address] [place] [address] Performed By: #### 1 9123-9 #### [facility] CLIA [id number] [address] Urea nitrogen [Mass/Vol] 35 mg/dL High 9-24 [facility] Comment on above: Order Comment: Mynor rodas Type: BLOOD SPECIMEN Ordering Facility: [facility] Address: [address] [place] [address] Performed By: #### 1 9123-9 #### [facility] CLIA [id number] [address] CBC panel Auto (Bld)on 07-05 Erythrocyte distribution width (RBC) [Ratio] 15.4 % High 11.5-15.0 [facility] Comment on above: Order Comment: Mynor rodas Type: BLOOD SPECIMEN Ordering Facility: [facility] Address: [address] [place] [address] Performed By: #### 5 8410-2 #### [facility] CLIA [id number] [address] Hematocrit (Bld) [Volume fraction] 30.3 % Low 39.0-51.0 [facility] Comment on above: Order Comment: Speci men Type: BLOOD SPECIMEN Ordering Facility: [facility] Address: [address] [place] [address] Performed By: #### 5 8410-2 #### [facility] CLIA [id number] [address] Hemoglobin (Bld) [Mass/Vol] 9.6 g/dL Low 13.0-17.0 [facility] Comment on above: Order Comment: Speci men Type: BLOOD SPECIMEN Ordering Facility: [facility] Address: [address] [place] [address] Performed By: #### 5 8410-2 #### [facility] CLIA [id number] [address] MCH (RBC) [Entitic mass] 28.9 pg Normal 26.0-34.0 [facility] Comment on above: Order Comment: Speci men Type: BLOOD SPECIMEN Ordering Facility: [facility] Address: [address] [place] [address] Performed By: #### 5 8410-2 #### [facility] CLIA [id number] [address] MCHC (RBC) [Mass/Vol] 31.7 g/dL Normal 30.5-36.0 [facility] Comment on above: Order Comment: Speci men Type: BLOOD SPECIMEN Ordering Facility: [facility] Address: [address] [place] [address] Performed By: #### 5 8410-2 #### [facility] CLIA [id number] [address] MCV (RBC) [Entitic vol] 91.3 fL Normal 80.0-100.0 [facility] Comment on above: Order Comment: Speci men Type: BLOOD SPECIMEN Ordering Facility: [facility] Address: [address] [place] [address] Performed By: #### 5 8410-2 #### [facility] CLIA [id number] [address] [place] [address] [place] Nucleated RBC (Bld) [#/Vol] 10*3/uL Normal <0.01 [facility] Comment on above: Order Comment: Speci men Type: BLOOD SPECIMEN Ordering Facility: [facility] Address: [address] [place] [address] Performed By: #### 5 8410-2 #### [facility] CLIA [id number] [address] [place] [address] [place] Platelet mean volume (Bld) [Entitic vol] 9.1 fL Normal 9.0-12.7 [facility] Comment on above: Order Comment: Speci men Type: BLOOD SPECIMEN Ordering Facility: [facility] Address: [address] [place] [address] Performed By: #### 5 8410-2 #### [facility] CLIA [id number] [address] [place] [address] [place] Platelets (Bld) [#/Vol] 319 10*3/uL Normal 150-400 [facility] Comment on above: Order Comment: Speci men Type: BLOOD SPECIMEN Ordering Facility: [facility] Address: [address] [place] [address] Performed By: #### 5 8410-2 #### [facility] CLIA [id number] [address] [place] [address] [place] RBC (Bld) [#/Vol] 3.32 10*6/uL Low 4.20-6.00 [facility] Comment on above: Order Comment: Speci men Type: BLOOD SPECIMEN Ordering Facility: [facility] Address: [address] [place] [address] Performed By: #### 5 8410-2 #### [facility] CLIA [id number] [address] [place] WBC (Bld) [#/Vol] 10.61 10*3/uL Normal 3.70-11.[address] [facility] Comment on above: Order Comment: Speci men Type: BLOOD SPECIMEN Ordering Facility: [facility]ori Taylor Address: [address] [place] [address] Performed By: #### 5 8410-2 #### [facility] CLIA [id number] [address] [place] [id number] [place] CT Abdomen and Pelvis WO con traston 07-05-2022 IMPRESSION: Prior right nephrectomy, stable appearing rounded structure within the superior aspect of the right renal fossa which could represent either residual portion of right kidney or focal hematoma. Right-sided retroperitoneal hematoma extending into and involving the right psoas muscle, slightly more prominent. A small component of high density just anterior to the right common iliac artery may represent area of recent hemorrhage, otherwise, no additional areas of hyperdensity to suggest recent hemorrhage. Resolved pneumoperitoneum, decreased subcutaneous air. Additional stable findings as described. 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 Unenhanced imaging is limited for the evaluation of some intra-abdominal and pelvic pathology. MQ: CTAPWO_3 Contrast: IV contrast: None Oral contrast: None CT Radiation dose: Integrated dose-length product (DLP) for this visit = 1109 mGy*cm. CT Dose Reduction Employed: mAs-kVp adjusted based on patient size-age COMPARISON: 06/26/2022 RESULT: Abdomen / Pelvis: Liver: Unenhanced appearance is unremarkable. Biliary: S/p cholecystectomy. Spleen: No splenomegaly. Pancreas: Unremarkable. Adrenals: Stable right adrenal nodule, probable adenoma. Kidneys: Previous right nephrectomy, focal rounded density again noted within the superior aspect of the right renal fossa which is unchanged compared to the prior study (3:55 and adjacent images), either representing residual upper pole right kidney versus unchanged focal hematoma. Left renal hypodensities, likely cysts. No left renal calculus or hydronephrosis. GI Tract: No bowel dilation. No bowel wall thickening. Lymph Nodes: No lymphadenopathy. Mesentery/peritoneum: No ascites. Resolved pneumoperitoneum. Retroperitoneum: Heterogeneous right-sided retroperitoneal fluid collection consistent with hematoma. This extends into and involve the right psoas muscle. Portions of the hematoma may be very slightly larger in size. There is a small slightly hyperdense component situated just anterior to the right common iliac artery (3:101 and adjacent images) which may represent a component of more recent hemorrhage. No other areas of high density hemorrhage are seen. Vasculature: No abdominal aortic or iliac artery aneurysm. IVC filter. Pelvis: No mass or ascites. Bones/Soft Tissues: Unchanged L1 compression deformity. Subcutaneous air related to recent surgery appears decreased. Lower thorax: Multiple calcified nodules at the lung bases. Clutch Inspector (topogram) images: No significant findings. 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 Unenhanced imaging is limited for the evaluation of some intra-abdominal and pelvic pathology. MQ: CTAPWO_3 Contrast: IV contrast: None Oral contrast: None CT Radiation dose: Integrated dose-length product (DLP) for this visit = 1109 mGy*cm. CT Dose Reduction Employed: mAs-kVp adjusted based on patient size-age COMPARISON: 06/26/2022 RESULT: Abdomen / Pelvis: Liver: Unenhanced appearance is unremarkable. Biliary: S/p cholecystectomy. Spleen: No splenomegaly. Pancreas: Unremarkable. Adrenals: Stable right adrenal nodule, probable adenoma. Kidneys: Previous right nephrectomy, focal rounded density again noted within the superior aspect of the right renal fossa which is unchanged compared to the prior study (3:55 and adjacent images), either representing residual upper pole right kidney versus unchanged focal hematoma. Left renal hypodensities, likely cysts. No left renal calculus or hydronephrosis. GI Tract: No bowel dilation. No bowel wall thickening. Lymph Nodes: No lymphadenopathy. Mesentery/peritoneum: No ascites. Resolved pneumoperitoneum. Retroperitoneum: Heterogeneous right-sided retroperitoneal fluid collection consistent with hematoma. This extends into and involve the right psoas muscle. Portions of the hematoma may be very slightly larger in size. There is a small slightly hyperdense component situated just anterior to the right common iliac artery (3:101 and adjacent images) which may represent a component of more recent hemorrhage. No other areas of high density hemorrhage are seen. Vasculature: No abdominal aortic or iliac artery aneurysm. IVC filter. Pelvis: No mass or ascites. Bones/Soft Tissues: Unchanged L1 compression deformity. Subcutaneous air related to recent surgery appears decreased. Lower thorax: Multiple calcified nodules at the lung bases. Clutch Inspector (topogram) images: No significant findings. IMPRESSION IMPRESSION: Prior right nephrectomy, stable appearing rounded structure within the superior aspect of the right renal fossa which could represent either residual portion of right kidney or focal hematoma. Right-sided retroperitoneal hematoma extending into and involving the right psoas muscle, slightly more prominent. A small component of high density just anterior to the right common iliac artery may represent area of recent hemorrhage, otherwise, no additional areas of hyperdensity to suggest recent hemorrhage. Resolved pneumoperitoneum, decreased subcutaneous air. Additional stable findings as described. Patient Accounts Specialist: PSCB Transcribe Date/Time: Jul 05 2022 1:09P Dictated by : ITZ GRACE MD This examination was interpreted and the report reviewed and electronically signed by: ITZ GRACE MD on Jul 05 2022 1:20PM EST [facility] CT Abdomen and Pelvis WO con trastOrdered By: [facility] Provider on 07-05-2022 [facility] Magnesium SerPl-mCncon 07-05 Magnesium [Mass/Vol] 1.7 mg/dL Normal 1.7-2.[address] [facility] Comment on above: Order Comment: Specfranki rodas Type: BLOOD SPECIMEN Ordering Facility: [facility] Address: [address] [place] [address] Performed By: #### 1 9123-9 #### [facility] CLIA [id number] [address] [place] PT panel Coag (PPP)on 2021 INR Coag (PPP) [Relative time] 2.0 {INR} High 0.9-1.3 [facility] Comment on above: Order Comment: Specfranki rodas Type: BLOOD SPECIMEN Ordering Facility: [facility] Address: [address] [place] [address] Result Comment: Fabiola min K Antagonist (VKA) Therapeutic Range: INR 2 to 3 (Target INR of 2.5) Note: For patients treated with VKA drugs, such as warfarin, the [employer] 2012 Guideline recommends a therapeutic INR range of 2 to 3 (target INR of 2.5). This recommendation includes high-risk patients with antiphospholipid syndrome with previous arterial or venous thromboembolism, current-generation mechanical or bioprosthetic aortic heart valve replacement. Note: Patients with mechanical aortic valve replacement and additional risk factors for thromboembolic events (atrial fibrillation, previous thromboembolism, LV dysfunction, hypercoagulable conditions) or an older generation mechanical AVR (i.e., ball in-Cage) or any mechanical MVR should have a INR therapeutic range of 2.5 to 3.5 (target INR of 3). Genaro GH, et al. Chest 2012, 141:7S-47S Parris RA et al. [facility] 2017, 70: 252-289 Performed By: #### 1 9123-9 #### [facility] CLIA [id number] [address] [place] PT Coag (PPP) [Time] 19.8 s High 9.7-13.[address] [facility] Comment on above: Order Comment: Mynor clark Type: BLOOD SPECIMEN Ordering Facility: [facility] Address: [address] [place] [address] Performed By: #### 1 9123-9 #### [facility] CLIA [id number] [address] [place] [address] [place] PT panel Coag (PPP)on 2021 INR Coag (PPP) [Relative time] 2.1 {INR} High 0.9-1.3 [facility] Comment on above: Order Comment: Mynor rodas Type: BLOOD SPECIMEN Ordering Facility: [facility] Address: [address] [place] [address] Result Comment: Fabiola min K Antagonist (VKA) Therapeutic Range: INR 2 to 3 (Target INR of 2.5) Note: For patients treated with VKA drugs, such as warfarin, the [employer] 2012 Guideline recommends a therapeutic INR range of 2 to 3 (target INR of 2.5). This recommendation includes high-risk patients with antiphospholipid syndrome with previous arterial or venous thromboembolism, current-generation mechanical or bioprosthetic aortic heart valve replacement. Note: Patients with mechanical aortic valve replacement and additional risk factors for thromboembolic events (atrial fibrillation, previous thromboembolism, LV dysfunction, hypercoagulable conditions) or an older generation mechanical AVR (i.e., ball in-Cage) or any mechanical MVR should have a INR therapeutic range of 2.5 to 3.5 (target INR of 3). Eliseott GH, et al. Chest 2012, 141:7S-47S Parris RA, et al. [facility] 2017, 70: 252-289 Performed By: #### 5 8410-2 #### [facility] CLIA [id number] [address] [place] [address] [place] PT Coag (PPP) [Time] 20.5 s High 9.7-13.[address] [facility] Comment on above: Order Comment: Mynor rodas Type: BLOOD SPECIMEN Ordering Facility: [facility] Address: [address] [place] [address] Performed By: #### 5 8410-2 #### [facility] CLIA [id number] [address] [place] [address] [place] Basic metabolic 2000 panelon 07-03-2022 Anion gap [Moles/Vol] 9 mmol/L Normal 9-18 [facility] Comment on above: Order Comment: Mynor rodas Type: BLOOD SPECIMEN Ordering Facility: [facility] Address: [address] [place] [address] Performed By: #### 5 8410-2 #### [facility] CLIA [id number] [address] [place] [address] [place] Calcium [Mass/Vol] 8.0 mg/dL Low 8.5-10.2 [facility] Comment on above: Order Comment: Speci men Type: BLOOD SPECIMEN Ordering Facility: [facility] Address: [address] [place] [address] Performed By: #### 5 8410-2 #### [facility] CLIA [id number] [address] [place] [address] [place] Chloride [Moles/Vol] 103 mmol/L Normal 97-[address] [facility] Comment on above: Order Comment: Speci men Type: BLOOD SPECIMEN Ordering Facility: [facility] Address: [address] [place] [address] Performed By: #### 5 8410-2 #### [facility] CLIA [id number] [address] [place] [address] [place] [place] CO2 [Moles/Vol] 26 mmol/L Normal 22-30 [facility] Comment on above: Order Comment: Speci men Type: BLOOD SPECIMEN Ordering Facility: [facility] Address: [address] [place] [address] Performed By: #### 5 8410-2 #### [facility] CLIA [id number] [address] [place] [address] [place] Creatinine [Mass/Vol] 1.83 mg/dL High 0.73-1.22 [facility] Comment on above: Order Comment: Speci men Type: BLOOD SPECIMEN Ordering Facility: [facility] Address: [address] [place] [address] Performed By: #### 5 8410-2 #### [facility] CLIA [id number] [address] OF [place] ESTIMATED GLOMERULAR FILTRATION RATE 39 mL/min/1.73m??? Low >=60 [facility] Comment on above: Order Comment: Speci men Type: BLOOD SPECIMEN Ordering Facility: [facility] Address: [address] [place] [address] Result Comment: Susi mated Glomerular Filtration Rate (eGFR) is calculated using the 2020 CKD-EPI creatinine equation. This equation utilizes serum creatinine, sex, and age as parameters. The creatinine assay has traceable calibration to isotope dilution-mass spectrometry. Refer to KDIGO guidelines for clinical interpretation. In patients with unstable renal function, e.g. those with acute kidney injury, the eGFR may not accurately reflect actual GFR. Performed By: #### 5 8410-2 #### [facility] CLIA [id number] [address] [place] [address] [place] Glucose [Mass/Vol] 130 mg/dL High 74-99 [facility] Comment on above: Order Comment: Mynor rodas Type: BLOOD SPECIMEN Ordering Facility: [facility] Address: [address] [place] [address] Result Comment: The [employer] Diabetes Association (ADA) provides guidance for cutoff values for fasting glucose and random glucose. The ADA defines fasting as no caloric intake for at least 8 hours. Fasting plasma glucose results between 100 to 125 mg/dL indicate increased risk for diabetes (prediabetes). Fasting plasma glucose results greater than or equal to 126 mg/dL meet the criteria for diagnosis of diabetes. In the absence of unequivocal hyperglycemia, results should be confirmed by repeat testing. In a patient with classic symptoms of hyperglycemia or hyperglycemic crisis, random plasma glucose results greater than or equal to 200 mg/dL meet the criteria for diagnosis of diabetes. Reference: Standards of Medical Care in Diabetes 2016, [employer] Diabetes Association. Diabetes Care. 2016.39(Suppl 1). Performed By: #### 5 8410-2 #### [facility] CLIA [id number] [address] [place] [address] [place] Potassium [Moles/Vol] 4.2 mmol/L Normal 3.7-5.1 [facility] Comment on above: Order Comment: Mynor rodas Type: BLOOD SPECIMEN Ordering Facility: [facility] Address: [address] [place] [address] Performed By: #### 5 8410-2 #### [facility] CLIA [id number] [address] [place] [address] [place] Sodium [Moles/Vol] 138 mmol/L Normal 136-144 [facility] Comment on above: Order Comment: Speci men Type: BLOOD SPECIMEN Ordering Facility: [facility] Address: [address] [place] [address] Performed By: #### 5 8410-2 #### [facility] CLIA [id number] [address] STATES [facility] Urea nitrogen [Mass/Vol] 23 mg/dL Normal 9-24 [facility] Comment on above: Order Comment: Speci men Type: BLOOD SPECIMEN Ordering Facility: [facility] Address: [address] [place] [address] Performed By: #### 5 8410-2 #### [facility] CLIA [id number] [address] CBC panel Auto (Bld)on 07-03 Erythrocyte distribution width (RBC) [Ratio] 15.5 % High 11.5-15.0 [facility] Comment on above: Order Comment: Speci men Type: BLOOD SPECIMEN Ordering Facility: [facility] Address: [address] [place] [address] Performed By: #### 1 9123-9 #### [facility] CLIA [id number] [address] Hematocrit (Bld) [Volume fraction] 27.6 % Low 39.0-51.0 [facility] Comment on above: Order Comment: Speci men Type: BLOOD SPECIMEN Ordering Facility: [facility] Address: [address] [place] [address] Performed By: #### 1 9123-9 #### [facility] CLIA [id number] [address] Hemoglobin (Bld) [Mass/Vol] 8.7 g/dL Low 13.0-17.0 [facility] Comment on above: Order Comment: Speci men Type: BLOOD SPECIMEN Ordering Facility: [facility] Address: [address] [place] [address] Performed By: #### 1 9123-9 #### [facility] CLIA [id number] [address] [place] [address] [place] MCH (RBC) [Entitic mass] 29.3 pg Normal 26.0-34.0 [facility] Comment on above: Order Comment: Speci men Type: BLOOD SPECIMEN Ordering Facility: [facility] Address: [address] [place] [address] Performed By: #### 1 9123-9 #### [facility] CLIA [id number] [address] MCHC (RBC) [Mass/Vol] 31.5 g/dL Normal 30.5-36.0 [facility] Comment on above: Order Comment: Speci men Type: BLOOD SPECIMEN Ordering Facility: [facility] Address: [address] [place] [address] Performed By: #### 1 9123-9 #### [facility] CLIA [id number] [address] MCV (RBC) [Entitic vol] 92.9 fL Normal 80.0-100.0 [facility] Comment on above: Order Comment: Speci men Type: BLOOD SPECIMEN Ordering Facility: [facility] Address: [address] [place] [address] Performed By: #### 1 9123-9 #### [facility] CLIA [id number] [address] Nucleated RBC (Bld) [#/Vol] 10*3/uL Normal <0.01 [facility] Comment on above: Order Comment: Speci men Type: BLOOD SPECIMEN Ordering Facility: [facility] Address: [address] [place] [address] Performed By: #### 1 9123-9 #### [facility] CLIA [id number] [address] Platelet mean volume (Bld) [Entitic vol] 9.2 fL Normal 9.0-12.7 [facility] Comment on above: Order Comment: Speci men Type: BLOOD SPECIMEN Ordering Facility: [facility] Address: [address] [place] [address] Performed By: #### 1 9123-9 #### [facility] CLIA [id number] [address] OF [place] Platelets (Bld) [#/Vol] 279 10*3/uL Normal 150-400 [facility] Comment on above: Order Comment: Mynor rodas Type: BLOOD SPECIMEN Ordering Facility: [facility] Address: [address] [place] [address] Performed By: #### 1 9123-9 #### [facility] CLIA [id number] [address] [place] [address] [place] RBC (Bld) [#/Vol] 2.97 10*6/uL Low 4.20-6.00 [facility] Comment on above: Order Comment: Mynor rodas Type: BLOOD SPECIMEN Ordering Facility: [facility] Address: [address] [place] [address] Performed By: #### 1 9123-9 #### [facility] CLIA [id number] [address] OF [place] WBC (Bld) [#/Vol] 8.90 10*3/uL Normal 3.70-11.00 [facility] Comment on above: Order Comment: Mynor rodas Type: BLOOD SPECIMEN Ordering Facility: [facility] Address: [address] [place] [address] Performed By: #### 1 9123-9 #### [facility] CLIA [id number] [address] OF [place] PT panel Coag (PPP)on 2021 INR Coag (PPP) [Relative time] 2.1 {INR} High 0.9-1.3 [facility] Comment on above: Order Comment: Mynor rodas Type: BLOOD SPECIMEN Ordering Facility: [facility] Address: [address] [place] [address] Result Comment: Fabiola min K Antagonist (VKA) Therapeutic Range: INR 2 to 3 (Target INR of 2.5) Note: For patients treated with VKA drugs, such as warfarin, the [employer] 2012 Guideline recommends a therapeutic INR range of 2 to 3 (target INR of 2.5). This recommendation includes high-risk patients with antiphospholipid syndrome with previous arterial or venous thromboembolism, current-generation mechanical or bioprosthetic aortic heart valve replacement. Note: Patients with mechanical aortic valve replacement and additional risk factors for thromboembolic events (atrial fibrillation, previous thromboembolism, LV dysfunction, hypercoagulable conditions) or an older generation mechanical AVR (i.e., ball in-Cage) or any mechanical MVR should have a INR therapeutic range of 2.5 to 3.5 (target INR of 3). Genaro GH, et al. Chest 2012, 141:7S-47S Parris MORAN et al. [facility] 2017, 70: 252-289 Performed By: #### 3 4528-0 #### [facility] CLIA [id number] [address] [place] [address] [place] PT Coag (PPP) [Time] 20.4 s High 9.7-13.[address] [facility] Comment on above: Order Comment: Mynor rodas Type: BLOOD SPECIMEN Ordering Facility: [facility] Address: [address] [place] [address] Performed By: #### 3 4528-0 #### [facility] CLIA [id number] [address] [place] [address] [place] Basic metabolic 2000 panelon 07-02-2022 Anion gap [Moles/Vol] 11 mmol/L 9 - 18 mmol/L [facility] Calcium [Mass/Vol] 8.2 mg/dL Low 8.5 - 10. 2 mg/dL [facility] Chloride [Moles/Vol] 104 mmol/L 97 - 10 5 mmol/L [facility] CO2 [Moles/Vol] 23 mmol/L 22 - 30 mmol/L [facility] Creatinine [Mass/Vol] 1.79 mg/dL High 0.73 - 1.22 mg/dL [facility] Estimated Glomerular Filtration Rate 41 mL/min/1.73m Low >=60 mL/min/1.73 m [facility] Glucose [Mass/Vol] 147 mg/dL High 74 - 99 mg/dL [facility] Potassium [Moles/Vol] 4.5 mmol/L 3.7 - 5.1 mmol/L [facility] Sodium [Moles/Vol] 138 mmol/L 136 - 144 mmol/L [facility] Urea nitrogen [Mass/Vol] 19 mg/dL 9 - 24 mg/dL [facility] CBC panel Auto (Bld)on 07-02 Erythrocyte distribution width (RBC) [Ratio] 15.7 % High 11.5 - 15.0 % [facility] Hematocrit (Bld) [Volume fraction] 29.2 % Low 39.0 - 51.0 % [facility] Hemoglobin (Bld) [Mass/Vol] 9.0 g/dL Low 13.0 - 17.0 g/dL [facility] MCH (RBC) [Entitic mass] 28.9 pg 26.0 - 34.0 pg [facility] MCHC (RBC) [Mass/Vol] 30.8 g/dL 30.5 - 36.0 g/dL [facility] MCV (RBC) [Entitic vol] 93.9 fL 80.0 - 100.0 fL [facility] Nucleated RBC (Bld) [#/Vol] <0.01 k/uL [facility] Platelet mean volume (Bld) [Entitic vol] 9.1 fL 9.0 - 12.7 fL [facility] Platelets (Bld) [#/Vol] 270 10*3/uL 150 - 400 k/uL [facility] RBC (Bld) [#/Vol] 3.11 10*6/uL Low 4.20 - 6.0 0 m/uL [facility] WBC (Bld) [#/Vol] 10.01 10*3/uL 3.70 - 11.00 k/uL [facility] PT panel Coag (PPP)on 2021 INR Coag (PPP) [Relative time] 2.4 {INR} High 0.9 - 1.3 [facility] PT Coag (PPP) [Time] 23.9 s High 9.7 - 1 3.0 sec [facility] US DOPPLER COMPLETEon 2021 US DOPPLER COMPLETE * * *Final Report* * * DATE OF EXAM: Jul 02 2022 4:16PM [id number] - US DOPPLER COMPLETE / PROCEDURE REASON: TESTICULAR SCROTAL PAIN * * * * Physician Interpretation * * * * EXAMINATION: SCROTAL ULTRASOUND WITH DOPPLER IMAGING CLINICAL HISTORY: TESTICULAR SCROTAL PAIN TECHNIQUE: Sonography of the scrotal contents with color flow and spectral Doppler imaging of the testicular vasculature was performed. Images were obtained and stored in a permanent archive. M: USC_2 COMPARISON: None RESULT: Limitations: The exam was difficult for the technologist as the patient was in a large amount of pain and unable to lie still. RIGHT SCROTUM: Right testis: 3.5 x 2.8 x 1.8 cm. Heterogeneous parenchyma. Normal intratesticular arterial and venous flow with normal spectral waveforms. Epididymis: Normal. Epididymal head measures 1.3 x 0.8 x 1.1 cm. Multiple cysts seen within the epididymal head the largest measuring 0.3 x 0.3 x 0.2 cm. Vascular flow on Color Doppler is symmetric to the contralateral side. Hydrocele: none Varicocele: absent Other: Echogenic nonvascular area seen lateral to the right testicle measuring 0.7 x 0.6 x 0.4 cm, of unknown etiology. LEFT SCROTUM: Left testis: 2.8 x 2.5 x 1.6 cm. Heterogeneous parenchyma. Normal intratesticular arterial and venous flow with normal spectral waveforms. Epididymis: Normal. Epididymal head measures 1.1 x 0.8 x 1.0 cm. Vascular flow on Color Doppler is symmetric to the contralateral side. Hydrocele: none Varicocele: present IMPRESSION: The testicles are heterogeneous in echotexture without focal lesion. Multiple small cysts of the left epididymal head. Echogenic nonvascular focus lateral to the right testicle of unknown etiology. Left-sided varicocele. Patient Accounts Specialist: MURTAZA Transcribe Date/Time: Jul 05 2022 10:22A Dictated by : YOBANY TAMEZ MD This examination was interpreted and the report reviewed and electronically signed by: YOBANY TAMEZ MD on Jul 05 2022 10:27AM EST [id number] [facility] US SCROTUM AND CONTENTSon US SCROTUM AND CONTENTS * * *Final Report* * * DATE OF EXAM: Jul 02 2022 4:16PM U [id number] - US SCROTUM AND CONTENTS / PROCEDURE REASON: TESTICULAR SCROTAL PAIN * * * * Physician Interpretation * * * * EXAMINATION: SCROTAL ULTRASOUND WITH DOPPLER IMAGING CLINICAL HISTORY: TESTICULAR SCROTAL PAIN TECHNIQUE: Sonography of the scrotal contents with color flow and spectral Doppler imaging of the testicular vasculature was performed. Images were obtained and stored in a permanent archive. M: USC_2 COMPARISON: None RESULT: Limitations: The exam was difficult for the technologist as the patient was in a large amount of pain and unable to lie still. RIGHT SCROTUM: Right testis: 3.5 x 2.8 x 1.8 cm. Heterogeneous parenchyma. Normal intratesticular arterial and venous flow with normal spectral waveforms. Epididymis: Normal. Epididymal head measures 1.3 x 0.8 x 1.1 cm. Multiple cysts seen within the epididymal head the largest measuring 0.3 x 0.3 x 0.2 cm. Vascular flow on Color Doppler is symmetric to the contralateral side. Hydrocele: none Varicocele: absent Other: Echogenic nonvascular area seen lateral to the right testicle measuring 0.7 x 0.6 x 0.4 cm, of unknown etiology. LEFT SCROTUM: Left testis: 2.8 x 2.5 x 1.6 cm. Heterogeneous parenchyma. Normal intratesticular arterial and venous flow with normal spectral waveforms. Epididymis: Normal. Epididymal head measures 1.1 x 0.8 x 1.0 cm. Vascular flow on Color Doppler is symmetric to the contralateral side. Hydrocele: none Varicocele: present IMPRESSION: The testicles are heterogeneous in echotexture without focal lesion. Multiple small cysts of the left epididymal head. Echogenic nonvascular focus lateral to the right testicle of unknown etiology. Left-sided varicocele. Patient Accounts Specialist: [facility] Transcribe Date/Time: Jul 05 2022 10:22A Dictated by : YOBANY TAMEZ MD This examination was interpreted and the report reviewed and electronically signed by: YOBANY TAMEZ MD on Jul 05 2022 10:27AM EST [id number] Normal [facility] CBC panel Auto (Bld)on 07-01 Erythrocyte distribution width (RBC) [Ratio] 15.9 % High 11.5 - 15.0 % [facility] Hematocrit (Bld) [Volume fraction] 31.4 % Low 39.0 - 51.0 % [facility] Hemoglobin (Bld) [Mass/Vol] 9.7 g/dL Low 13.0 - 17.0 g/dL [facility] MCH (RBC) [Entitic mass] 29.2 pg 26.0 - 34.0 pg [facility] MCHC (RBC) [Mass/Vol] 30.9 g/dL 30.5 - 36.0 g/dL [facility] MCV (RBC) [Entitic vol] 94.6 fL 80.0 - 100.0 fL [facility] Nucleated RBC (Bld) [#/Vol] <0.01 k/uL [facility] Platelet mean volume (Bld) [Entitic vol] 9.1 fL 9.0 - 12.7 fL [facility] Platelets (Bld) [#/Vol] 287 10*3/uL 150 - 400 k/uL [facility] RBC (Bld) [#/Vol] 3.32 10*6/uL Low 4.20 - 6.0 0 m/uL [facility] WBC (Bld) [#/Vol] 9.18 10*3/uL 3.70 - 11.00 k/uL [facility] CT Abdomen and Pelvis WO con traston 07-01-2022 Radiology Study observation (narrative) [facility] Comprehensive metabolic 2000 panelon 07-01-2022 Albumin [Mass/Vol] 2.8 g/dL Low 3.9 - 4.9 g/dL [facility] ALP [Catalytic activity/Vol] 96 U/L 38 - 113 U/L [facility] ALT [Catalytic activity/Vol] 18 U/L 10 - 54 U/L [facility] Anion gap [Moles/Vol] 14 mmol/L 9 - 18 mmol/L [facility] AST [Catalytic activity/Vol] 37 U/L 14 - 40 U/L [facility] Bilirubin [Mass/Vol] 1.1 mg/dL 0.2 - 1 .3 mg/dL [facility] Calcium [Mass/Vol] 8.8 mg/dL 8.5 - 10. 2 mg/dL [facility] Chloride [Moles/Vol] 101 mmol/L 97 - 10 5 mmol/L [facility] CO2 [Moles/Vol] 22 mmol/L 22 - 30 mmol/L [facility] Creatinine [Mass/Vol] 1.65 mg/dL High 0.73 - 1.22 mg/dL [facility] Estimated Glomerular Filtration Rate 45 mL/min/1.73m Low >=60 mL/min/1.73 m [facility] Glucose [Mass/Vol] 119 mg/dL High 74 - 99 mg/dL [facility] Potassium [Moles/Vol] 4.6 mmol/L 3.7 - 5.1 mmol/L [facility] Protein [Mass/Vol] 6.0 g/dL Low 6.3 - 8.0 g/dL [facility] Sodium [Moles/Vol] 137 mmol/L 136 - 144 mmol/L [facility] Urea nitrogen [Mass/Vol] 19 mg/dL 9 - 24 mg/dL [facility] HbA1c (Bld)on 07-01-2022 Average glucose Estimated from glycated hemoglobin (Bld) [Mass/Vol] 103 mg/dL [facility] HbA1c (Bld) [Mass fraction] 5.2 % 4.3 - 5.6 % [facility] MAGNESIUM BLDon 07-01-2022 Magnesium [Mass/Vol] 2.0 mg/dL 1.7 - 2 .3 mg/dL [facility] PHOSPHORUS INORGANICon 07-01 Phosphate [Mass/Vol] 4.1 mg/dL 2.7 - 4 .8 mg/dL [facility] PT panel Coag (PPP)on 2021 INR Coag (PPP) [Relative time] 2.7 {INR} High 0.9 - 1.3 [facility] PT Coag (PPP) [Time] 26.2 s High 9.7 - 1 3.0 sec [facility] PT panel Coag (PPP)on 2021 INR Coag (PPP) [Relative time] 2.0 {INR} High 0.9 - 1.3 [facility] PT Coag (PPP) [Time] 20.0 s High 9.7 - 1 3.0 sec [facility] No Panel Informationon 06-22 BLANK _ [facility] Implant Date 07/21/2020 [facility] BLANK _ [facility] Implant Date 07/21/2020 [facility] CHECKon AV Delay Adaptive Paced Minimum (ms) 300 ms [facility] AV Delay Adaptive Sensed Minimum (ms) 270 ms [facility] AV Delay Paced (ms) 100 ms [facility] AV Delay Sensed (ms) [facility] Steven RA Pacing Amplitude (volts) 2 V [facility] Steven RA Pacing Polarity BI [facility] Steven RA Pacing Pulse Width (ms) 0.4 ms [facility] Steven RA Sensing Amplitude (mvolts) 0.25 mV [facility] Steven RA Sensing Polarity BI [facility] Steven RV Pacing Amplitude (volts) 1.5 V [facility] Steven RV Pacing Polarity BI [facility] Steven RV Pacing Pulse Width (ms) 0.4 ms [facility] Steven RV Sensing Amplitude (mvolts) 1.5 mV [facility] Steven RV Sensing Polarity BI [facility] Lead1 [employer] [facility] Lead2 [employer] [facility] Location RA [facility] Location RV [facility] Lower Rate (bpm) 60 {beats}/min [facility] Model L331 ACCKENEFICDE MRI EL [facility] Model 7841 Ingevity+IS-1 [facility] Model 7842 Ingevity+IS-1 [facility] Pacemaker Dependent? NO [facility] Pacing Mode DDDR [facility] PM-Device Mfg BSX [facility] PM-Percent Pacing (A) 4 % [facility] PM-Percent Pacing (V) 7 % [facility] RA Bipolar Impedance ohms 634 ohm [facility] Rhythm Afib 120s-130s [facility] RV Bipolar Impedance ohms 615 ohm [facility] Serial Number [id number] [facility] Serial Number [id number] [facility] Serial Number [id number] [facility] Tracking Rate (bpm) 130 {beats}/min [facility] AV Delay Adaptive Paced Minimum (ms) 300 ms [facility] AV Delay Adaptive Sensed Minimum (ms) 270 ms [facility] AV Delay Paced (ms) 100 ms [facility] AV Delay Sensed (ms) 90 ms [facility] Steven RA Pacing Amplitude (volts) 2 V [facility] Steven RA Pacing Polarity BI [facility] Steven RA Pacing Pulse Width (ms) 0.4 ms [facility] Steven RA Sensing Amplitude (mvolts) 0.25 mV [facility] Steven RA Sensing Polarity BI [facility] Steven RV Pacing Amplitude (volts) 1.5 V [facility] Steven RV Pacing Polarity BI [facility] Steven RV Pacing Pulse Width (ms) 0.4 ms [facility] Steven RV Sensing Amplitude (mvolts) 1.5 mV [facility] Steven RV Sensing Polarity BI [facility] Lead1 [employer] [facility] Lead2 [employer] [facility] Location RA [facility] Location RV [facility] Lower Rate (bpm) 60 {beats}/min [facility] Model L331 ACCOLADE MRI EL [facility] Model 7841 Ingevity+IS-1 [facility] Model 7842 Ingevity+IS-1 [facility] Pacemaker Dependent? NO [facility] Pacing Mode DDDR [facility] PM-Device Mfg BSX [facility] PM-Percent Pacing (A) 4 % [facility] PM-Percent Pacing (V) 7 % [facility] RA Bipolar Impedance ohms 634 ohm [facility] Rhythm Afib 120s-130s [facility] RV Bipolar Impedance ohms 615 ohm [facility] Serial Number [id number] [facility] Serial Number [id number] [facility] Serial Number [id number] [facility] Tracking Rate (bpm) 130 {beats}/min [facility] Absolute lymphocyte counton 06-05-2022 Lymphocytes Auto (Unsp spec) [#/Vol] 0.93 10*3/uL 0.83-4.51 [facility] Work Phone: Basophil percentageon 2021 Basophil percentage 0 SEEN /hpf 0-5 [facility] Work Phone: Basophils/100 WBC (Bld) 0.3 % 0-1 [facility] Work Phone: Chloride [Moles/Vol] 105 mmol/L 98-107 [facility] Work Phone: Eosinophils/100 WBC (Bld) 1.9 % 0-5 [facility] Work Phone: Glucose [Mass/Vol] 136 mg/dL 74-106 [facility] Work Phone: Comment on above: Fasting Glucose resu lt greater than or equal to 126 mg/dL suggests DIABETES MELLITUS per A.D.A. criteria. Neutrophils (Bld) [#/Vol] 9.0 10*3/uL 2.0-7.7 [facility] Work Phone: Neutrophils/100 WBC (Bld) 79.6 % 47-70 [facility] Work Phone: Potassium [Moles/Vol] 4.5 mmol/L 3.5-5.1 [facility] Work Phone: Sodium [Moles/Vol] 139 mmol/L 136-145 [facility] Work Phone: WBC (Bld) [#/Vol] 11.2 10*3/uL 4.4-11.0 [facility] Work Phone: Bilirubin Test strip Ql (U)o n 06-05-2022 Bilirubin Ql (U) Negative Negative [facility] Work Phone: Blood erythrocytes count (nu mber/volume)on 06-05-2022 RBC (Bld) [#/Vol] 3.34 10*6/uL 4.6-6.2 [facility] Work Phone: Blood hemoglobin measurement (mass/volume)on 06-05-2022 Hemoglobin (Bld) [Mass/Vol] 9.6 g/dL 13.0-16.5 [facility] Work Phone: Blood lymphocytes/100 leukoc yteson 06-05-2022 Lymphocytes/100 WBC (Bld) 8.3 % 19-41 [facility] Work Phone: Blood monocytes/100 leukocyt eson 06-05-2022 Monocytes/100 WBC (Bld) 8.6 % 0-10 [facility] Work Phone: Blood platelet mean volumeon 06-05-2022 Platelet mean volume (Bld) [Entitic vol] 9.0 fL 6.2-12.0 [facility] Work Phone: Determination of erythrocyte mean corpuscular volume (MCV)on 06-05-2022 MCV (RBC) [Entitic vol] 91.3 fL 80-94 [facility] Work Phone: Hematocrit Auto (Bld) [Volum e fraction]on 06-05-2022 Hematocrit (Bld) [Volume fraction] 30.5 % 40-54 [facility] Work Phone: INR in Blood by Coagulation assayon 06-05-2022 INR Coag (Bld) [Relative time] 1.2 {INR} [facility] Work Phone: Ketones Test strip Ql (U)on 06-05-2022 Ketones Ql (U) Negative Negative [facility] Work Phone: Laboratory - Chemistry and C hemistry - challengeon 06-05-2022 CO2 [Moles/Vol] 28.0 mmol/L 21.0-32.0 [facility] Work Phone: [phone] Urea nitrogen/Creatinine [Mass ratio] 16.6 mg/mg 10-20 [facility] Work Phone: [phone] Laboratory - Coagulationon 1 PT Coag (PPP) [Time] 15.1 s 11.7-14.9 [facility] Work Phone: Laboratory - Hematology and Cell countson 06-05-2022 Erythrocyte distribution width (RBC) [Entitic vol] 50.0 fL 35.1-43.9 [facility] Work Phone: [phone] Erythrocyte distribution width (RBC) [Ratio] 15.1 % 11.6-14.6 [facility] Work Phone: [phone] Immature granulocytes/100 WBC (Bld) 1.300 % 0.0-0.9 [facility] Work Phone: Comment on above: IG% - Immature Granu locytes (promyelocytes, myelocytes and metamyelocytes) > 1% indicates that a LEFT SHIFT is Present. MCH (RBC) [Entitic mass] 28.7 pg 27.0-32.0 [facility] Work Phone: Nucleated RBC/100 WBC (Bld) [Ratio] 0 % 0-5 [facility] Work Phone: [phone] MCHC Auto (RBC) [Mass/Vol]on 06-05-2022 MCHC (RBC) [Mass/Vol] 31.5 g/dL 32-36 [facility] Work Phone: Mucus LM Ql (Urine sed)on Mucus Ql (Urine sed) 0 SEEN /hpf [facility] Work Phone: Nitrite Test strip Ql (U)on 06-05-2022 Nitrite Ql (U) Negative Negative [facility] Work Phone: No Panel Informationon 06-05 Estimated Creatinine Clearance Calc 33.17 ml/min [facility] Work Phone: Estimated GFR (MDRD) Amer 39 mL/min >60 [facility] Work Phone: Comment on above: GFR Calc Estimated GFR (MDRD) Non-Af Amer 32 mL/min >60 [facility] Work Phone: Comment on above: Non- GFR Calc Platelets bldon 06-05-2022 Platelets (Bld) [#/Vol] 328 10*3/uL 150-450 [facility] Work Phone: Protein Test strip Ql (U)on 06-05-2022 Protein Ql (U) 30 mg/dl Negative [facility] Work Phone: Serum or plasma calcium ophelia urement (mass/volume)on 06-05-2022 Calcium [Mass/Vol] 8.8 mg/dL 8.5-10.1 [facility] Work Phone: Serum or plasma creatinine m easurement (mass/volume)on 06-05-2022 Creatinine [Mass/Vol] 2.17 mg/dL 0.70-1.30 [facility] Work Phone: Comment on above: The validity of the calculated GFR & GFRAA in patients over 70 years has not been determined. Clinical correlation is essential. Serum or plasma urea nitroge n measurement (mass/volume)on 06-05-2022 Urea nitrogen [Mass/Vol] 36 mg/dL 7-18 [facility] Work Phone: [phone] Squamous epithelial cells de tection in urine sediment by light microscopyon 06-05-2022 Epithelial cells.squamous LM Ql (Urine sed) 0 SEEN /hpf 0-5 [facility] Work Phone: Thin prep Papanicolaou smear with manual screeningon 06-05-2022 Thin prep Papanicolaou smear with manual screening 6 5-15 [facility] Work Phone: [phone] Urine blood detectionon - RBC Ql (U) 150 /ul Negative [facility] Work Phone: RBC Ql (U) 0 SEEN /hpf 0-5 [facility] Work Phone: Urine clarityon 06-05-2022 Clarity (U) Clear Clear [facility] Work Phone: Urine color determinationon 06-05-2022 Color (U) Yellow Yellow [facility] Work Phone: Urine glucose detectionon Glucose Ql (U) Normal mg/dl Normal [facility] Work Phone: Urine leukocyte esterase det ection by dipstickon 06-05-2022 Leukocyte esterase Test strip Ql (U) Negative Negative [facility] Work Phone: Urine pHon 06-05-2022 pH (U) 8.0 [pH] 5.0 - 8.0 [facility] Work Phone: Urine sediment bacteria coun t by microscopy (number/high power field)on 06-05-2022 Bacteria LM.HPF (Urine sed) [#/Area] 0 /[HPF] None Seen [facility] Work Phone: Urine specific gravity measu rementon 06-05-2022 Specific gravity (U) [Rel density] 1.015 1.002-1.030 [facility] Work Phone: Urobilinogen Auto test strip Ql (U)on 06-05-2022 Urobilinogen Ql (U) 1 mg/dl Normal [facility] Work Phone: No Panel Informationon 05-14 BLANK _ [facility] Implant Date 07/21/2020 [facility] PACEMAKER REMOTE CHECKon AV Delay Adaptive Paced Minimum (ms) 300 ms [facility] AV Delay Adaptive Sensed Minimum (ms) 270 ms [facility] AV Delay Paced (ms) 100 ms [facility] AV Delay Sensed (ms) 90 [facility] Steven RA Pacing Amplitude (volts) 2 V [facility] Steven RA Pacing Polarity BI [facility] Steven RA Pacing Pulse Width (ms) 0.4 ms [facility] Steven RA Sensing Amplitude (mvolts) 0.25 mV [facility] Steven RA Sensing Polarity BI [facility] Steven RV Pacing Amplitude (volts) 1.3 V [facility] Steven RV Pacing Polarity BI [facility] Steven RV Pacing Pulse Width (ms) 0.4 ms [facility] Steven RV Sensing Amplitude (mvolts) 1.5 mV [facility] Steven RV Sensing Polarity BI [facility] Lead1 [employer] [facility] Lead2 [employer] [facility] Location RA [facility] Location RV [facility] Lower Rate (bpm) 60 {beats}/min [facility] Model L331 ACCOLADE MRI EL [facility] Model 7841 Ingevity+IS-1 [facility] Model 7842 Ingevity+IS-1 [facility] Pacing Mode DDDR [facility] PM-Device Mfg BSX [facility] PM-Percent Pacing (A) 5 % [facility] PM-Percent Pacing (V) 9 % [facility] RA Bipolar Impedance ohms 682 ohm [facility] RV Bipolar Impedance ohms 765 ohm [facility] Serial Number [id number] [facility] Serial Number [id number] [facility] Serial Number [id number] [facility] Thresh RV Capture Amplitude (volts) 1 V [facility] Thresh RV Capture Duration (ms) 0.4 ms [facility] Tracking Rate (bpm) 130 {beats}/min [facility] NM RENAL FLOW/FXN W PHARMon 03-30-2022 [facility] NM CARDIAC PERF STRESS/PHARM on 02-22-2022 [facility] No Panel Informationon 02-04 BLANK _ [facility] Implant Date 07/21/2020 [facility] PACEMAKER REMOTE CHECKon AV Delay Adaptive Paced Minimum (ms) 300 ms [facility] AV Delay Adaptive Sensed Minimum (ms) 270 ms [facility] AV Delay Paced (ms) 100 ms [facility] AV Delay Sensed (ms) 90 ms [facility] Steven RA Pacing Amplitude (volts) 2 V [facility] Steven RA Pacing Polarity BI [facility] Steven RA Pacing Pulse Width (ms) 0.4 ms [facility] Steven RA Sensing Amplitude (mvolts) 0.25 mV [facility] Steven RA Sensing Polarity BI [facility] Steven RV Pacing Amplitude (volts) 1.5 V [facility] Steven RV Pacing Polarity BI [facility] Steven RV Pacing Pulse Width (ms) 0.4 ms [facility] Steven RV Sensing Amplitude (mvolts) 1.5 mV [facility] Steven RV Sensing Polarity BI [facility] Lead1 [employer] [facility] Lead[facility] [employer] [facility] Location RA [facility] Location RV [facility] Lower Rate (bpm) 60 {beats}/min [facility] Model L331 ACCOLADE MRI EL [facility] Model 7841 Ingevity+IS-1 [facility] Model 7842 Ingevity+IS-1 [facility] Pacing Mode DDDR [facility] PM-Device Mfg BSX [facility] PM-Percent Pacing (A) 21 % [facility] PM-Percent Pacing (V) 2 % [facility] RA Bipolar Impedance ohms 699 ohm [facility] Rhythm Afib-VS [facility] RV Bipolar Impedance ohms 725 ohm [facility] Serial Number [id number] [facility] Serial Number [id number] [facility] Serial Number [id number] [facility] Thresh RV Capture Amplitude (volts) 1 V [facility] Thresh RV Capture Duration (ms) 0.4 ms [facility] Tracking Rate (bpm) 130 {beats}/min [facility] LABORATORYOrdered By: Katherine Holguin on 01-19-2022 Albumin DL <= 20 mg/L (U) [Mass/Vol] 5336 mcg/dL Invalid Interpretation Code AO ADM SS Albumin/Creatinine DL <= 20 mg/L (U) [Mass ratio] 28 mcg/mg Invalid Interpretation Code 0 - 30 mcg/mg AO ADM SS Creatinine (U) [Mass/Vol] 192.6 mg/dL Invalid Interpretation Code 39.0 - 259.0 mg/dL AO ADM SS Albumin BCP dye [Mass/Vol] 3.4 G/dL Invalid Interpretation Code 3.4 - 4.8 G/dL AO ADM SS Albumin/Globulin [Mass ratio] 1.1 {ratio} Invalid Interpretation Code 1.1 - 2.5 ratio AO ADM SS ALP [Catalytic activity/Vol] 95 U/L Invalid Interpretation Code 40 - 135 U/L AO ADM SS ALT With P-5'-P [Catalytic activity/Vol] 25 U/L Invalid Interpretation Code 16 - 63 U/L AO ADM SS AST With P-5'-P [Catalytic activity/Vol] 15 U/L Invalid Interpretation Code 10 - 40 U/L AO ADM SS Bilirubin [Mass/Vol] 2.0 mg/dL Invalid Interpretation Code 0.2 - 1.0 mg/dL AO ADM SS Calcium [Mass/Vol] 8.9 mg/dL Invalid Interpretation Code 8.4 - 10.2 mg/dL AO ADM SS Chloride [Moles/Vol] 103 mmol/L Invalid Interpretation Code 98 - 107 mmol/L AO ADM SS Cholesterol [Mass/Vol] 151 mg/dL Invalid Interpretation Code 0 - 200 mg/dL AO ADM SS Cholesterol in HDL [Mass/Vol] 57 mg/dL Invalid Interpretation Code 40 - 60 mg/dL AO ADM SS Cholesterol in LDL [Mass/Vol] 68 mg/dL Invalid Interpretation Code 0 - 130 mg/dL AO ADM SS CO2 [Moles/Vol] 28 mmol/L Invalid Interpretation Code 23 - 31 mmol/L AO ADM SS Creatinine [Mass/Vol] 1.10 mg/dL Invalid Interpretation Code 0.70 - 1.30 mg/dL AO ADM SS Electrolyte Balance 7.0 mEq/L Invalid Interpretation Code 4.0 - 15.0 mEq/L AO ADM SS Globulin 3.2 G/dL Invalid Interpretation Code AO ADM SS Glucose [Mass/Vol] 148 mg/dL Invalid Interpretation Code 80 - 115 mg/dL AO ADM SS Potassium [Moles/Vol] 4.3 mmol/L Invalid Interpretation Code 3.5 - 5.1 mmol/L AO ADM SS Prostate specific Ag [Mass/Vol] 1.44 ng/mL Invalid Interpretation Code 0.00 - 4.00 ng/mL AO ADM SS Protein [Mass/Vol] 6.6 G/dL Invalid Interpretation Code 6.4 - 8.2 G/dL AO ADM SS Sodium [Moles/Vol] 138 mmol/L Invalid Interpretation Code 136 - 145 mmol/L AO ADM SS Triglyceride [Mass/Vol] 131 mg/dL Invalid Interpretation Code 0 - 150 mg/dL AO ADM SS Urea nitrogen [Mass/Vol] 21 mg/dL Invalid Interpretation Code 7 - 18 mg/dL AO ADM SS Urea nitrogen/Creatinine [Mass ratio] 19 ratio Invalid Interpretation Code 7 - 27 ratio AO ADM SS Vit. D 25-Hydroxy 49.7 ng/mL Invalid Interpretation Code AO ADM SS LABORATORYOrdered By: SYSTEM SYSTEM on 01-19-2022 GFR 80 ml/min/1.73sqm Invalid Interpretation Code AO Chemistry S GFR Non- 66 ml/min/1.73sqm Invalid Interpretation Code AO Chemistry S XR CHEST 2V FRONTAL/LATon XR CHEST 2V FRONTAL/LAT Final Report DATE OF EXAM: Jul 23 2020 7:33AM [id number] - XR CHEST 2V FRONTAL/LAT / PROCEDURE REASON: Pacing Device, asymptomatic, eval Physician Interpretation EXAMINATION: CHEST RADIOGRAPH (2 VIEW FRONTAL & LATERAL) CLINICAL HISTORY: Pacing Device, asymptomatic, eval MQ: [id number] EXAM DATE/TIME: 07/23/2020 7:33 AM COMPARISON: CT chest 11/30/2018, chest radiograph 09/07/2017 RESULT: Lines, tubes, and devices: There are postoperative changes of left-sided cardiac pacing device with leads overlying the right atrium and right ventricle. Lungs and pleura: No airspace consolidation or pleural effusion. No pneumothorax. Bilateral granulomas. Cardiomediastinal silhouette: Normal cardiomediastinal silhouette. Bones and soft tissues: Degenerative changes in the spine. IMPRESSION: Postoperative changes of left-sided cardiac pacing device. Otherwise no acute findings. Patient Accounts Specialist: MURTAZA Transcribe Date/Time: Jul 23 2020 7:40A Dictated by : DODIE BROOKS MD This examination was interpreted and the report reviewed and electronically signed by: DODIE BROOKS MD on Jul 23 2020 7:43AM EST Normal [facility] No Panel Information [facility] Vital Signs Date Time Vital Sign Value Performing Clinician Facility 05-09-2025 09:35-0400 Body mass index (BMI) [Ratio] 37.07 kg/m2 Mirian Horan MD Work Phone: [facility] 05-09-2025 09:35-0400 Body weight 113.85 kg Mirian Horan MD Work Phone: [facility] 05-09-2025 09:35-0400 Diastolic blood pressure 76 mm[Hg] Mirian Horan MD Work Phone: [facility] 05-09-2025 09:35-0400 Heart rate 83 /min Mirian Horan MD Work Phone: [facility] 05-09-2025 09:35-0400 SaO2% (BldA) [Mass fraction] 98 % Mirian Horan MD Work Phone: [facility] 05-09-2025 09:35-0400 Systolic blood pressure 132 mm[Hg] Mirian Horan MD Work Phone: [facility] 04-11-2025 08:41-0400 Diastolic blood pressure 89 mm[Hg] Fermin Sanchez MD Work Phone: [facility] 04-11-2025 08:41-0400 Heart rate 84 /min Fermin Sanchez MD Work Phone: [facility] 04-11-2025 08:41-0400 SaO2% (BldA) [Mass fraction] 95 % Fermin Sanchez MD Work Phone: [facility] 04-11-2025 08:41-0400 Systolic blood pressure 142 mm[Hg] Fermin Sanchez MD Work Phone: [facility] 03-22-2025 10:33-0400 Body height 175.3 cm Dali Dillon APRN.[employer] Work Phone: [facility] 03-22-2025 10:33-0400 Body mass index (BMI) [Ratio] 37.66 kg/m2 Dali Dillon APRN.[employer] Work Phone: [facility] 03-22-2025 10:33-0400 Body weight 115.67 kg Dali Dillon APRN.[employer] Work Phone: [facility] 03-22-2025 10:33-0400 Diastolic blood pressure 64 mm[Hg] Dali Dillon APRN.[employer] Work Phone: [facility] 03-22-2025 10:33-0400 Heart rate 87 /min Dali Dillon APRN.[employer] Work Phone: [facility] 03-22-2025 10:33-0400 Respiratory rate 16 /min Dali Dillon APRN.[employer] Work Phone: [facility] 03-22-2025 10:33-0400 SaO2% (BldA) [Mass fraction] 95 % Dali Dillon SEASONAL CLERK.[employer] Work Phone: [facility] 03-22-2025 10:33-0400 Systolic blood pressure 105 mm[Hg] Dali Dillon SEASONAL CLERK.E[employer] Work Phone: [facility] 03-07-2025 09:47-0400 Body height 175.3 cm Smitha Pelini PA-C Work Phone: [facility] 03-07-2025 09:47-0400 Body mass index (BMI) [Ratio] 35.88 kg/m2 Smitha Pelini PA-C Work Phone: [facility] 03-07-2025 09:47-0400 Body temperature 98.6 [degF] Smitha Pelini PA-C Work Phone: [facility] 03-07-2025 09:47-0400 Body weight 110.22 kg Smitha Pelini PA-C Work Phone: [facility] 03-07-2025 09:47-0400 Diastolic blood pressure 95 mm[Hg] Smitha Pelini PA-C Work Phone: [facility] 03-07-2025 09:47-0400 Heart rate 80 /min Smitha Pelini PA-C Work Phone: [facility] 03-07-2025 09:47-0400 Respiratory rate 18 /min Smitha Pelini PA-C Work Phone: [facility] 03-07-2025 09:47-0400 SaO2% (BldA) [Mass fraction] 96 % Smitha Pelini PA-C Work Phone: [facility] 03-07-2025 09:47-0400 Systolic blood pressure 144 mm[Hg] Smitha Pelini PA-C Work Phone: [facility] 02-01-2025 09:02-0400 Body height 175.3 cm Dali Dillon SEASONAL CLERK.[employer] Work Phone: [facility] 02-01-2025 09:02-0400 Body mass index (BMI) [Ratio] 37.8 kg/m2 Dali Dillon APRN.[employer] Work Phone: [facility] 02-01-2025 09:02-0400 Body weight 116.12 kg Dali Dillon APRN.[employer] Work Phone: [facility] 02-01-2025 09:02-0400 Diastolic blood pressure 94 mm[Hg] Dali Dillon SEASONAL CLERK.E[employer] Work Phone: [facility] 02-01-2025 09:02-0400 Heart rate 99 /min Dali Dillon SEASONAL CLERK.[employer] Work Phone: [facility] 02-01-2025 09:02-0400 Respiratory rate 18 /min Dali Dillon APRN.[employer] Work Phone: [facility] 02-01-2025 09:02-0400 SaO2% (BldA) [Mass fraction] 98 % Dali Dillon APRN.E[employer]DER Work Phone: [facility] 02-01-2025 09:02-0400 Systolic blood pressure 142 mm[Hg] Dali Dillon APRN.E[employer]ELDER Work Phone: [facility] 01-14-2025 14:59-0400 Body height 175.3 cm Aure Jaeger MD Work Phone: [facility] 01-14-2025 14:59-0400 Body mass index (BMI) [Ratio] 37.01 kg/m2 Aure Jaeger MD Work Phone: [facility] 01-14-2025 14:59-0400 Body weight 113.67 kg Aure Jaeger MD Work Phone: [facility] 01-14-2025 14:59-0400 Diastolic blood pressure 70 mm[Hg] Aure Jaeger MD Work Phone: [facility] 01-14-2025 14:59-0400 Heart rate 100 /min Aure Jaeger MD Work Phone: [facility] 01-14-2025 14:59-0400 Respiratory rate 14 /min Aure Jaeger MD Work Phone: [facility] 01-14-2025 14:59-0400 SaO2% (BldA) [Mass fraction] 97 % Aure Jaeger MD Work Phone: [facility] 01-14-2025 14:59-0400 Systolic blood pressure 126 mm[Hg] Aure Jaeger MD Work Phone: [facility] 01-04-2025 09:02-0400 Body height 175.3 cm Naveen Nino SEASONAL CLERK.[employer] Work Phone: [facility] 01-04-2025 09:02-0400 Body mass index (BMI) [Ratio] 36.77 kg/m2 Naveen Nino SEASONAL CLERK.[employer] Work Phone: [facility] 01-04-2025 09:02-0400 Body weight 112.95 kg Naveen Nino SEASONAL CLERK.[employer] Work Phone: [facility] 01-04-2025 09:02-0400 Diastolic blood pressure 82 mm[Hg] Naveen Nino SEASONAL CLERK.[employer] Work Phone: [facility] Comment on above: (R) arm 01-04-2025 09:02-0400 Heart rate 69 /min Naveen Nino SEASONAL CLERK.[employer] Work Phone: [facility] 01-04-2025 09:02-0400 Respiratory rate 18 /min Naveen Nino SEASONAL CLERK.[employer] Work Phone: [facility] 01-04-2025 09:02-0400 SaO2% (BldA) [Mass fraction] 96 % Naveen Nino SEASONAL CLERK.[employer] Work Phone: [facility] 01-04-2025 09:02-0400 Systolic blood pressure 122 mm[Hg] Naveen Nino SEASONAL CLERK.[employer] Work Phone: [facility] Comment on above: (R) arm 01-03-2025 10:15-0400 Body height 175.3 cm Jesenia Arzate SEASONAL CLERK.E[employer]ELDER Work Phone: [facility] 01-03-2025 10:15-0400 Body mass index (BMI) [Ratio] 37.11 kg/m2 Jesenia Arzate SEASONAL CLERK.[employer] Work Phone: [facility] 01-03-2025 10:15-0400 Body temperature 96.01 [degF] Jesenia Arzate SEASONAL CLERK.[employer] Work Phone: [facility] 01-03-2025 10:15-0400 Body weight 114 kg Jesenia Arzate SEASONAL CLERK.[employer] Work Phone: [facility] 01-03-2025 10:15-0400 Diastolic blood pressure 92 mm[Hg] Jesenia Arzate SEASONAL CLERK.[employer] Work Phone: [facility] 01-03-2025 10:15-0400 Heart rate 101 /min Jesenia Arzate SEASONAL CLERK.[employer] Work Phone: [facility] 01-03-2025 10:15-0400 Respiratory rate 18 /min Jesenia Arzate SEASONAL CLERK.[employer] Work Phone: [facility] 01-03-2025 10:15-0400 SaO2% (BldA) [Mass fraction] 96 % Jesenia Arzate SEASONAL CLERK.[employer] Work Phone: [facility] 01-03-2025 10:15-0400 Systolic blood pressure 137 mm[Hg] Jesenia Arzate SEASONAL CLERK.[employer] Work Phone: [facility] 12-03-2024 10:24-0400 Body height 177.8 cm Deena Waggoner MD Work Phone: [facility] 12-03-2024 10:24-0400 Body mass index (BMI) [Ratio] 37.02 kg/m2 Deena Waggoner MD Work Phone: [facility] 12-03-2024 10:24-0400 Body temperature 97.7 [degF] Deena Waggoner MD Work Phone: [facility] 12-03-2024 10:24-0400 Body weight 117.03 kg Deena Waggoner MD Work Phone: [facility] 12-03-2024 10:24-0400 Diastolic blood pressure 68 mm[Hg] Deena Waggoner MD Work Phone: [facility] Comment on above: right arm 12-03-2024 10:24-0400 Heart rate 65 /min Deena Waggoner MD Work Phone: [facility] 12-03-2024 10:24-0400 Respiratory rate 18 /min Deena Waggoner MD Work Phone: [facility] 12-03-2024 10:24-0400 SaO2% (BldA) [Mass fraction] 95 % Deena Waggoner MD Work Phone: [facility] 12-03-2024 10:24-0400 Systolic blood pressure 118 mm[Hg] Deena Waggoner MD Work Phone: [facility] Comment on above: right arm 09-24-2024 15:38-0500 Body mass index (BMI) [Ratio] 37.17 kg/m2 Janie Orellana SEASONAL CLERK.[employer] Work Phone: [facility] 09-24-2024 15:38-0500 Body temperature 96.91 [degF] Janie Orellana SEASONAL CLERK.E[employer] Work Phone: [facility] 09-24-2024 15:38-0500 Body weight 117.5 kg Janie Orellana SEASONAL CLERK.E[employer] Work Phone: [facility] 09-24-2024 15:38-0500 Diastolic blood pressure 80 mm[Hg] Janie Orellana SEASONAL CLERK.E[employer] Work Phone: [facility] 09-24-2024 15:38-0500 Heart rate 74 /min Janie Orellana SEASONAL CLERK.E[employer] Work Phone: [facility] 09-24-2024 15:38-0500 Respiratory rate 16 /min Janie Orellana SEASONAL CLERK.E[employer] Work Phone: [facility] 09-24-2024 15:38-0500 SaO2% (BldA) [Mass fraction] 96 % Janie Orellana SEASONAL CLERK.E[employer] Work Phone: [facility] 09-24-2024 15:38-0500 Systolic blood pressure 128 mm[Hg] Janie Orellana SEASONAL CLERK.[employer] Work Phone: [facility] 08-31-2024 14:06-0500 Body mass index (BMI) [Ratio] 36.5 kg/m2 [facility] SEASONAL CLERK.E[employer]IC [employer] WELDER Work Phone: [facility] 08-31-2024 14:06-0500 Body temperature 97.5 [degF] [facility] SEASONAL CLERK.[employer]DER Work Phone: [facility] 08-31-2024 14:06-0500 Body weight 115.4 kg [facility] SEASONAL CLERK.[employer] Work Phone: [facility] 08-31-2024 14:06-0500 Diastolic blood pressure 73 mm[Hg] [facility] SEASONAL CLERK.[employer] Work Phone: [facility] 08-31-2024 14:06-0500 Heart rate 84 /min [facility] SEASONAL CLERK.[employer] Work Phone: [facility] 08-31-2024 14:06-0500 Respiratory rate 18 /min [facility] SEASONAL CLERK.[employer] Work Phone: [facility] 08-31-2024 14:06-0500 SaO2% (BldA) [Mass fraction] 95 % [facility] SEASONAL CLERK.E[employer]DER Work Phone: [facility] 08-31-2024 14:06-0500 Systolic blood pressure 117 mm[Hg] [facility] SEASONAL CLERK.E[employer] Work Phone: [facility] 06-04-2024 11:34-0400 Body height 177.8 cm Deena Waggoner MD Work Phone: [facility] 06-04-2024 11:34-0400 Body mass index (BMI) [Ratio] 36.73 kg/m2 Deena Waggoner MD Work Phone: [facility] 06-04-2024 11:34-0400 Body weight 116.12 kg Deena Waggoner MD Work Phone: [facility] 06-04-2024 11:34-0400 Diastolic blood pressure 76 mm[Hg] Deena Waggoner MD Work Phone: [facility] 06-04-2024 11:34-0400 Heart rate 90 /min Deena Waggoner MD Work Phone: [facility] 06-04-2024 11:34-0400 SaO2% (BldA) [Mass fraction] 96 % Deena Waggoner MD Work Phone: [facility] 06-04-2024 11:34-0400 Systolic blood pressure 115 mm[Hg] Deena Waggoner MD Work Phone: [facility] 12-20-2023 12:00-0400 Body height 177.8 cm Deena Waggoner MD Work Phone: [facility] 12-20-2023 12:00-0400 Body mass index (BMI) [Ratio] 38.02 kg/m2 Deena Waggoner MD Work Phone: [facility] 12-20-2023 12:00-0400 Body temperature 96.4 [degF] Deena Waggoner MD Work Phone: [facility] 12-20-2023 12:00-0400 Body weight 120.2 kg Deena Waggoner MD Work Phone: [facility] 12-20-2023 12:00-0400 Diastolic blood pressure 77 mm[Hg] Deena Waggoner MD Work Phone: [facility] Comment on above: rt arm 12-20-2023 12:00-0400 Heart rate 62 /min Deena Waggoner MD Work Phone: [facility] 12-20-2023 12:00-0400 SaO2% (BldA) [Mass fraction] 95 % Deena Waggoner MD Work Phone: [facility] 12-20-2023 12:00-0400 Systolic blood pressure 151 mm[Hg] Deena Waggoner MD Work Phone: [facility] Comment on above: rt arm 08-19-2023 00:31-0500 Heart rate 63 /min [facility] 08-19-2023 00:31-0500 Respiratory rate 18 /min [facility] 08-19-2023 00:31-0500 SaO2% (BldA) [Mass fraction] 97 % [facility] 08-18-2023 21:39-0500 Body height 177.8 cm [facility] 08-18-2023 21:39-0500 Body mass index (BMI) [Ratio] 38 kg/m2 [facility] 08-18-2023 21:39-0500 Body temperature 98.3 [degF] [facility] 08-18-2023 21:39-0500 Body weight 120.2 kg [facility] 08-18-2023 21:39-0500 Diastolic blood pressure 90 mm[Hg] [facility] 08-18-2023 21:39-0500 Systolic blood pressure 149 mm[Hg] [facility] 08-02-2023 13:07-0500 Body height 177.8 cm P[address] 1 [facility] 08-02-2023 13:07-0500 Body temperature 97 [degF] Pst 1 [facility] 08-02-2023 13:07-0500 Body weight 117.03 kg P[address] 1 [facility] 08-02-2023 13:07-0500 Diastolic blood pressure 77 mm[Hg] Pst 1 [facility] 08-02-2023 13:07-0500 Heart rate 73 /min Pst 1 [facility] 08-02-2023 13:07-0500 Respiratory rate 16 /min Pst 1 [facility] 08-02-2023 13:07-0500 SaO2% (BldA) [Mass fraction] 98 % Pst 1 [facility] 08-02-2023 13:07-0500 Systolic blood pressure 128 mm[Hg] Pst 1 [facility] 08-01-2023 08:53-0500 Body height 177.8 cm Mirian Horan MD Work Phone: [facility] 08-01-2023 08:53-0500 Body weight 115.67 kg Mirian Horan MD Work Phone: [facility] 08-01-2023 08:53-0500 Diastolic blood pressure 76 mm[Hg] Mirian Horan MD Work Phone: [facility] 08-01-2023 08:53-0500 Heart rate 82 /min Mirian Horan MD Work Phone: [facility] 08-01-2023 08:53-0500 Respiratory rate 18 /min Mirian Horan MD Work Phone: [facility] 08-01-2023 08:53-0500 SaO2% (BldA) [Mass fraction] 96 % Mirian Horan MD Work Phone: [facility] 08-01-2023 08:53-0500 Systolic blood pressure 112 mm[Hg] Mirian Horan MD Work Phone: [facility] 06-29-2023 15:19-0400 Body height 177.8 cm Rossy Richardson DO Work Phone: [facility] 06-29-2023 15:19-0400 Body weight 117.94 kg Rossy Richardson DO Work Phone: [facility] 06-29-2023 15:19-0400 Diastolic blood pressure 80 mm[Hg] Rossy Richardson DO Work Phone: [facility] 06-29-2023 15:19-0400 Heart rate 78 /min Rossy Richardson DO Work Phone: [facility] 06-29-2023 15:19-0400 Respiratory rate 16 /min Rossy Richardson DO Work Phone: [facility] 06-29-2023 15:19-0400 Systolic blood pressure 132 mm[Hg] Rossy Dylan DO Work Phone: [facility] 06-23-2023 11:18-0400 Body height 177.8 cm Deena Waggoner MD Work Phone: [facility] 06-23-2023 11:18-0400 Body mass index (BMI) [Ratio] 36.73 kg/m2 Deena Waggoner MD Work Phone: [facility] 06-23-2023 11:18-0400 Body temperature 96.91 [degF] Deena Waggoner MD Work Phone: [facility] 06-23-2023 11:18-0400 Body weight 116.12 kg Deena Waggoner MD Work Phone: [facility] 06-23-2023 11:18-0400 Diastolic blood pressure 84 mm[Hg] Deena Waggoner MD Work Phone: [facility] Comment on above: RT ARM 06-23-2023 11:18-0400 Heart rate 79 /min Deena Waggoner MD Work Phone: [facility] 06-23-2023 11:18-0400 SaO2% (BldA) [Mass fraction] 96 % Deena Waggoner MD Work Phone: [facility] 06-23-2023 11:18-0400 Systolic blood pressure 123 mm[Hg] Deena Waggoner MD Work Phone: [facility] Comment on above: RT ARM 06-23-2023 10:01-0400 Body height 177.8 cm Niharika Frias MD Work Phone: [facility] 06-23-2023 10:01-0400 Body temperature 96.69 [degF] Niharika Frias MD Work Phone: [facility] 06-23-2023 10:01-0400 Body weight 116.8 kg Niharika Frias MD Work Phone: [facility] 06-23-2023 10:01-0400 Diastolic blood pressure 98 mm[Hg] Niharika Frias MD Work Phone: [facility] 06-23-2023 10:01-0400 Heart rate 85 /min Niharika Frias MD Work Phone: [facility] 06-23-2023 10:01-0400 Respiratory rate 16 /min Niharika Frias MD Work Phone: [facility] 06-23-2023 10:01-0400 SaO2% (BldA) [Mass fraction] 95 % Niharika Frias MD Work Phone: [facility] 06-23-2023 10:01-0400 Systolic blood pressure 139 mm[Hg] Niharika Frias MD Work Phone: [facility] 02-28-2023 15:08-0400 Body height 177.8 cm Niharika Frias MD Work Phone: [facility] 02-28-2023 15:08-0400 Body temperature 96.91 [degF] Niharika Frias MD Work Phone: [facility] 02-28-2023 15:08-0400 Body weight 112.49 kg Niharika Frias MD Work Phone: [facility] 02-28-2023 15:08-0400 Diastolic blood pressure 88 mm[Hg] Niharika Frias MD Work Phone: [facility] 02-28-2023 15:08-0400 Heart rate 69 /min Niharika Frias MD Work Phone: [facility] 02-28-2023 15:08-0400 Respiratory rate 17 /min Niharika Frias MD Work Phone: [facility] 02-28-2023 15:08-0400 SaO2% (BldA) [Mass fraction] 95 % Niharika Frias MD Work Phone: [facility] 02-28-2023 15:08-0400 Systolic blood pressure 136 mm[Hg] Niharika Frias MD Work Phone: [facility] 12-28-2022 [id number] Body height 177.8 cm Deena Waggoner MD Work Phone: [facility] 12-28-2022 10:31-0400 Body mass index (BMI) [Ratio] 36.3 kg/m2 Deena Waggoner MD Work Phone: [facility] 12-28-2022 10:31-0400 Body temperature 96.8 [degF] Deena Waggoner MD Work Phone: [facility] 12-28-2022 10:31-0400 Body weight 114.76 kg Deena Waggoner MD Work Phone: [facility] 12-28-2022 10:31-0400 Diastolic blood pressure 73 mm[Hg] Deena Waggoner MD Work Phone: [facility] Comment on above: right arm 12-28-2022 10:31-0400 Heart rate 91 /min Deena Waggoner MD Work Phone: [facility] 12-28-2022 10:31-0400 SaO2% (BldA) [Mass fraction] 96 % Deena Waggoner MD Work Phone: [facility] 12-28-2022 10:31-0400 Systolic blood pressure 119 mm[Hg] Deena Waggoner MD Work Phone: [facility] Comment on above: right arm 12-21-2022 13:09-0400 Body height 177.8 cm Danielle Fonseca DO Work Phone: [facility] 12-21-2022 13:09-0400 Body weight 113.4 kg Danielle Fonseca DO Work Phone: [facility] 12-21-2022 13:09-0400 Respiratory rate 16 /min Danielle Fonseca DO Work Phone: [facility] 12-13-2022 12:30-0400 Diastolic blood pressure 79 mm[Hg] Derek Callahan MD Work Phone: [facility] 12-13-2022 12:30-0400 Systolic blood pressure 124 mm[Hg] Derek Callahan MD Work Phone: [facility] 12-13-2022 12:00-0400 SaO2% (BldA) [Mass fraction] 96 % Derek Callahan MD Work Phone: [facility] 12-13-2022 09:05-0400 Heart rate 79 /min Derek Callahan MD Work Phone: [facility] 12-13-2022 09:05-0400 Respiratory rate 15 /min Derek Callahan MD Work Phone: [facility] 11-30-2022 11:22-0400 Body height 177.8 cm Deena Waggoner MD Work Phone: [facility] 11-30-2022 11:22-0400 Body temperature 97 [degF] Deena Waggoner MD Work Phone: [facility] 11-30-2022 11:22-0400 Body weight 113.85 kg Deena Waggoner MD Work Phone: [facility] 11-30-2022 11:22-0400 Diastolic blood pressure 84 mm[Hg] Deena Waggoner MD Work Phone: [facility] 11-30-2022 11:22-0400 Heart rate 81 /min Deena Waggoner MD Work Phone: [facility] 11-30-2022 11:22-0400 SaO2% (BldA) [Mass fraction] 96 % Deena Waggoner MD Work Phone: [facility] 11-30-2022 11:22-0400 Systolic blood pressure 120 mm[Hg] Deena Waggoner MD Work Phone: [facility] 11-23-2022 07:38-0400 Body height 177.8 cm Danielle Fonseca DO Work Phone: [facility] 11-23-2022 07:38-0400 Body weight 111.13 kg Danielle Fonseca DO Work Phone: [facility] 11-23-2022 07:38-0400 Respiratory rate 18 /min Danielle Fonseca DO Work Phone: [facility] 11-10-2022 11:30-0400 Diastolic blood pressure 85 mm[Hg] Mri (1.5t) [facility] 11-10-2022 11:30-0400 Heart rate 76 /min Mri (1.5t) [facility] 11-10-2022 11:30-0400 Respiratory rate 18 /min Mri (1.5t) [facility] 11-10-2022 11:30-0400 SaO2% (BldA) [Mass fraction] 96 % Mri (1.5t) [facility] 11-10-2022 11:30-0400 Systolic blood pressure 128 mm[Hg] Mri (1.5t) [facility] 10-14-2022 08:45-0500 Body height 177.8 cm Niharika Frias MD Work Phone: [facility] 10-14-2022 08:45-0500 Body temperature 97.2 [degF] Niharika Frias MD Work Phone: [facility] 10-14-2022 08:45-0500 Body weight 114.76 kg Niharika Frias MD Work Phone: [facility] 10-14-2022 08:45-0500 Diastolic blood pressure 73 mm[Hg] Niharika Frias MD Work Phone: [facility] 10-14-2022 08:45-0500 Heart rate 78 /min Niharika Frias MD Work Phone: [facility] 10-14-2022 08:45-0500 Respiratory rate 16 /min Niharika Frias MD Work Phone: [facility] 10-14-2022 08:45-0500 SaO2% (BldA) [Mass fraction] 97 % Niharika Frias MD Work Phone: [facility] 10-14-2022 08:45-0500 Systolic blood pressure 126 mm[Hg] Niharika Frias MD Work Phone: [facility] 08-13-2022 13:31-0500 Body weight 108.23 kg Mirian Horan MD Work Phone: [facility] 08-13-2022 13:31-0500 Diastolic blood pressure 74 mm[Hg] Mirian Horan MD Work Phone: [facility] 08-13-2022 13:31-0500 Heart rate 68 /min Mirian Horan MD Work Phone: [facility] 08-13-2022 13:31-0500 SaO2% (BldA) [Mass fraction] 98 % Mirian Horan MD Work Phone: [facility] 08-13-2022 13:31-0500 Systolic blood pressure 133 mm[Hg] Mirian Horan MD Work Phone: [facility] 07-29-2022 09:42-0500 Body height 177.8 cm Jesenia Arzate SEASONAL CLERK.ELECTRIC ARC WELDER Work Phone: [facility] 07-29-2022 09:42-0500 Body temperature 96.6 [degF] Jesenia Arzate SEASONAL CLERK.ELECTRIC ARC WELDER Work Phone: [facility] 07-29-2022 09:42-0500 Body weight 108.55 kg Jesenia Arzate SEASONAL CLERK.ELECTRIC ARC WELDER Work Phone: [facility] 07-29-2022 09:42-0500 Diastolic blood pressure 68 mm[Hg] Jesenia Manningon SEASONAL CLERK.ELECTRIC ARC WELDER Work Phone: [facility] 07-29-2022 09:42-0500 Heart rate 69 /min Jesenia Arzate SEASONAL CLERK.ELECTRIC ARC WELDER Work Phone: [facility] 07-29-2022 09:42-0500 Respiratory rate 20 /min Jesenia Arzate SEASONAL CLERK.ELECTRIC ARC WELDER Work Phone: [facility] 07-29-2022 09:42-0500 SaO2% (BldA) [Mass fraction] 97 % Jesenia Arzate SEASONAL CLERK.ELECTRIC ARC WELDER Work Phone: [facility] 07-29-2022 09:42-0500 Systolic blood pressure 138 mm[Hg] Jesenia Arzate SEASONAL CLERK.ELECTRIC ARC WELDER Work Phone: [facility] 07-19-2022 15:20-0500 Body height 177.8 cm Dali Dillon APRN.ELECTRIC ARC WELDER Work Phone: [facility] 07-19-2022 15:20-0500 Body weight 108.09 kg Dali Dillon APRN.ELECTRIC ARC WELDER Work Phone: [facility] 07-19-2022 15:20-0500 Diastolic blood pressure 74 mm[Hg] Dali Dillon APRN.ELECTRIC ARC WELDER Work Phone: [facility] 07-19-2022 15:20-0500 Heart rate 103 /min Dali Dillon APRN.ELECTRIC ARC WELDER Work Phone: [facility] 07-19-2022 15:20-0500 Respiratory rate 18 /min Dali Dillon APRN.ELECTRIC ARC WELDER Work Phone: [facility] 07-19-2022 15:20-0500 SaO2% (BldA) [Mass fraction] 98 % Dali Dillon APRN.ELECTRIC ARC WELDER Work Phone: [facility] 07-19-2022 15:20-0500 Systolic blood pressure 112 mm[Hg] Dali Dillon SEASONAL CLERK.ELECTRIC ARC WELDER Work Phone: [facility] 06-05-2022 18:57-0400 Diastolic blood pressure 90 mm[Hg] [facility] Work Phone: 06-05-2022 18:57-0400 Heart rate 109 /min [facility] Work Phone: 06-05-2022 18:57-0400 Respiratory rate 16 /min [facility] Work Phone: 06-05-2022 18:57-0400 SaO2% (BldA) [Mass fraction] 98 % [facility] Work Phone: 06-05-2022 18:57-0400 Systolic blood pressure 177 mm[Hg] [facility] Work Phone: 06-05-2022 18:13-0400 Body temperature 98.1 [degF] [facility] Work Phone: 06-05-2022 11:54-0400 Body height 177.8 cm [facility] Work Phone: 06-05-2022 11:54-0400 Body mass index (BMI) [Ratio] 37.3 kg/m2 [facility] Work Phone: 06-05-2022 11:54-0400 Body weight 117.93 kg [facility] Work Phone: 05-18-2022 13:27-0400 Body height 177.8 cm Samuel Jain MD Work Phone: [facility] 05-18-2022 13:27-0400 Body weight 113.4 kg Samuel Jain MD Work Phone: [facility] 05-18-2022 13:27-0400 Diastolic blood pressure 96 mm[Hg] Samuel Jain MD Work Phone: [facility] 05-18-2022 13:27-0400 Heart rate 81 /min Samuel Jain MD Work Phone: [facility] 05-18-2022 13:27-0400 Respiratory rate 18 /min Samuel Jain MD Work Phone: [facility] 05-18-2022 13:27-0400 SaO2% (BldA) [Mass fraction] 95 % Samuel Jain MD Work Phone: [facility] 05-18-2022 13:27-0400 Systolic blood pressure 148 mm[Hg] Samuel Jain MD Work Phone: [facility] 05-04-2022 09:55-0400 Body height 177.8 cm Dali Dillon APRN.ELECTRIC ARC WELDER Work Phone: [facility] 05-04-2022 09:55-0400 Body weight 115.08 kg Dali Dillon SEASONAL CLERK.ELECTRIC ARC WELDER Work Phone: [facility] 05-04-2022 09:55-0400 Diastolic blood pressure 62 mm[Hg] Dali Dillon SEASONAL CLERK.ELECTRIC ARC WELDER Work Phone: [facility] 05-04-2022 09:55-0400 Heart rate 72 /min Dali Dillon APRN.ELECTRIC ARC WELDER Work Phone: [facility] 05-04-2022 09:55-0400 Respiratory rate 20 /min Dali Dillon APRN.ELECTRIC ARC WELDER Work Phone: [facility] 05-04-2022 09:55-0400 SaO2% (BldA) [Mass fraction] 96 % Dali Dillon SEASONAL CLERK.ELECTRIC ARC WELDER Work Phone: [facility] 05-04-2022 09:55-0400 Systolic blood pressure 132 mm[Hg] Dail Dillon APRN.ELECTRIC ARC WELDER Work Phone: [facility] 03-09-2022 10:56-0400 Body height 175.3 cm Gaboyram Raymundo DO Work Phone: [facility] 03-09-2022 10:56-0400 Body weight 117.94 kg Jayram Raymundo DO Work Phone: [facility] 03-09-2022 10:56-0400 Respiratory rate 18 /min Gaboyram Raymundo DO Work Phone: [facility] 01-29-2022 13:56-0400 Body height 175.3 cm Rossy Richardson DO Work Phone: [facility] 01-29-2022 13:56-0400 Body weight 120.2 kg Rossy Richardson DO Work Phone: [facility] 01-29-2022 13:56-0400 Diastolic blood pressure 80 mm[Hg] Rossy Richardson DO Work Phone: [facility] 01-29-2022 13:56-0400 Heart rate 100 /min Rossy Richardson DO Work Phone: [facility] 01-29-2022 13:56-0400 Respiratory rate 18 /min Rossy Richardson DO Work Phone: [facility] 01-29-2022 13:56-0400 SaO2% (BldA) [Mass fraction] 96 % Rossy Richardson DO Work Phone: [facility] 01-29-2022 13:56-0400 Systolic blood pressure 132 mm[Hg] Rossy Richardson DO Work Phone: [facility] Encounters Encounter Date Encounter Type Care Provider Facility Start: 06-07-2025 End: 06-07-2025 ambulatory SMITHA SIDHU [facility] Start: 06-03-2025 End: 06-03-2025 ambulatory SMITHA RAY IV [facility] Start: 05-09-2025 End: 05-09-2025 Telephone encounter Mirian Horan MD Work Phone: [facility] Cardiology [place] Comment on above: Gifts Officer - O ther Start: 05-09-2025 End: 05-09-2025 Patient encounter procedure Mirian Horan MD Work Phone: [facility] Cardiology [place] Comment on above: Persistent atrial fi brillation (HCC) (Primary Dx); LBBB (left bundle branch block); 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; Pacemaker; Sinus node dysfunction (HCC); Cardiomyopathy, nonischemic (HCC) Start: 05-09-2025 End: 05-09-2025 ambulatory MIRIAN HORAN Facility[facility] Start: 04-16-2025 End: 04-16-2025 Orders Only Fermin Sanchez MD Work Phone: Urology Comment on above: Stage 3 chronic kidn ey disease, unspecified whether stage 3a or 3b CKD (HCC) (Primary Dx) Start: 04-11-2025 End: 04-11-2025 Patient encounter procedure Fermin Sanchez MD Work Phone: Urology Comment on above: Renal cell carcinoma of right kidney (HCC) (Primary Dx); Malignant neoplasm of right kidney, except renal pelvis (HCC); Stage 3 chronic kidney disease, unspecified whether stage 3a or 3b CKD (HCC) Start: 04-11-2025 End: 04-11-2025 ambulatory FERMIN SANCHEZ Facility:[place] [facility] Start: 04-02-2025 ambulatory BUTCH DULCEKO IV Faci lity:[place] [facility] Start: 03-28-2025 End: 03-29-2025 Telephone encounter Deena COREY [facility] Comment on above: Orders (AG HFC defer ral) Results Start: 03-22-2025 End: 03-22-2025 ambulatory BUTCH DULCEKO IV Facility:[facility] Start: 03-22-2025 End: 03-22-2025 Patient encounter procedure Dali Dillon APRN.ELECTRIC ARC WELDER Work Phone: [facility] Comment on above: LBBB (left bundle br anch block) (Primary Dx); Chronic systolic congestive heart failure (HCC); Pacemaker Start: 03-07-2025 End: 03-07-2025 Patient encounter procedure Smitha Sidhu PA-C Work Phone: Pulmonary Medicine Comment on above: Pulmonary hypertensi on (HCC) (Primary Dx); Lung nodules; Lymphadenopathy; HFrEF (heart failure with reduced ejection fraction) (HCC); Personal history of malignant neoplasm of kidney; Shortness of breath; Personal history of pulmonary embolism; Antiphospholipid antibody syndrome (HCC) Start: 03-07-2025 End: 03-07-2025 ambulatory BUTCH FLOR IV Facility:[facility] Start: 02-26-2025 ambulatory BUTCH DULCEKO IV Faci lity:[facility] Start: 02-26-2025 End: 02-26-2025 Subsequent hospital visit by physician Card Lab Stress [address] [place] [facility] Comment on above: Pulmonary hypertensi on (HCC) [I27.20] Start: 02-05-2025 End: 02-05-2025 Telephone encounter Deena Mixon [facility] Comment on above: Orders ( HFC order contact/ltr) Start: 02-01-2025 End: 02-04-2025 Evaluation and management of inpatient SMITHA RAY IV Facility:[facility] Start: 02-01-2025 End: 02-01-2025 Emergency department patient visit SMITHA RAY IV Facility:[facility] Start: 02-01-2025 End: 02-01-2025 Patient encounter procedure Dali Dillon APRN.ELECTRIC ARC WELDER Work Phone: [facility] Comment on above: LBBB (left bundle br anch block) (Primary Dx); Chronic systolic congestive heart failure (HCC); History of heart artery stent Start: 02-01-2025 End: 02-01-2025 ambulatory NAVEEN JONES Facility:[facility] Start: 01-14-2025 End: 01-14-2025 Patient encounter procedure Arue Jaeger MD Work Phone: Cardiology Comment on above: Coronary artery dise ase involving [place] coronary artery of [place] heart without angina pectoris (Primary Dx); Persistent atrial fibrillation (HCC); Primary hypertension; Mixed hyperlipidemia; Atherosclerosis of aorta; Pulmonary HTN (HCC) Start: 01-14-2025 End: 01-14-2025 ambulatory SMITHA RAY IV Facility:[facility] Start: 01-04-2025 End: 01-04-2025 Patient encounter procedure Naveen Nino APRN.ELECTRIC ARC WELDER Work Phone: [facility] Cardiology [place] Comment on above: Persistent atrial fi brillation (HCC) (Primary Dx); Sinus node dysfunction (HCC); LBBB (left bundle branch block); Pacemaker; Chronic systolic congestive heart failure (HCC); 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; At risk for stroke; History of heart artery stent Start: 01-04-2025 End: 01-04-2025 ambulatory NAVEEN NINO Facility:[facility] Start: 01-03-2025 End: 01-03-2025 Patient encounter procedure Jesenia Arzate APRN.ELECTRIC ARC WELDER Work Phone: Pulmonary Medicine Comment on above: Pulmonary hypertensi on (HCC) (Primary Dx); Hospital discharge follow-up; Persistent atrial fibrillation (HCC); Chronic congestive heart failure, unspecified heart failure type (HCC) Start: 01-03-2025 End: 01-03-2025 ambulatory BUTCH HALKO IV Facility:[facility] Start: 12-29-2024 ambulatory Alex Castellano Facility: [facility] Start: 12-29-2024 End: 12-31-2024 Evaluation and management of inpatient Smitha Ray Facility:[facility] Start: 12-03-2024 End: 12-03-2024 Anticoagulant drug monitoring Deena Waggoner MD Work Phone: [facility] Hematology/Oncology Comment on above: Antiphospholipid ant ibody syndrome (HCC) (Primary Dx); Stage 3b chronic kidney disease (HCC); Hypercoagulable state (HCC); CTEPH (chronic thromboembolic pulmonary hypertension) (HCC); Chronic anticoagulation Start: 12-03-2024 End: 12-03-2024 Patient encounter procedure Deena Waggoner MD Work Phone: [facility] Hematology/Oncology Start: 12-03-2024 End: 12-03-2024 ambulatory BUTCH HALKO IV [facility] Start: 11-28-2024 End: 11-28-2024 ambulatory BUTCH HALKO IV Facility:[facility] Start: 10-25-2024 End: 10-25-2024 Professional / ancillary services management Mirian Horan MD Work Phone: [facility] Start: 10-25-2024 End: 10-25-2024 ambulatory BUTCH HALKO IV [facility] Start: 10-25-2024 End: 10-25-2024 Follow-up encounter Mirian Horan MD Work Phone: [facility] Comment on above: Remote Pacemaker Fol low Up Start: 10-25-2024 End: 10-25-2024 Patient encounter procedure Rem Device Ck [facility] Start: 09-24-2024 End: 09-24-2024 ambulatory BUTCH HALKO IV Facility:[facility] Start: 09-24-2024 End: 09-24-2024 Patient encounter procedure Janie Orellana SEASONAL CLERK.ELECTRIC ARC WELDER Work Phone: [facility] Comment on above: Acute cough (Primary Dx); URI, acute Start: 09-13-2024 End: 09-17-2024 ambulatory SMITHA HALKO DO Facility:[facility] Start: 08-31-2024 End: 08-31-2024 Office outpatient visit 25 minutes Kameron Contreras SEASONAL CLERK.ELECTRIC ARC WELDER Work Phone: [facility] Comment on above: Acute cough (Primary Dx); Sinobronchitis Start: 08-31-2024 End: 08-31-2024 ambulatory BUTCH HALKO IV Facility:[facility] Start: 08-31-2024 End: 08-31-2024 Subsequent hospital visit by physician Luban Counts Include [address] [facility] Work Phone: Radiology Comment on above: Acute cough [R05.1] Start: 07-19-2024 End: 07-19-2024 ambulatory BUTCH HALKO IV Facility:[facility] Start: 07-19-2024 End: 07-19-2024 Follow-up encounter Mirian Horan MD Work Phone: [facility] Start: 07-19-2024 End: 07-19-2024 Patient encounter procedure Device [facility] Comment on above: Permanent Pacemaker Start: 06-06-2024 End: 06-06-2024 ambulatory BUTCH HALKO IV Facility:[facility] Start: 06-05-2024 ambulatory BUTCH HALKO IV Faci lity:[facility] Start: 06-05-2024 End: 08-28-2024 Telephone encounter Deena Waggoner MD Work Phone: [facility] Comment on above: Results Start: 06-05-2024 End: 06-05-2024 ambulatory BUTCH HALKO IV Facility:[facility] Start: 06-05-2024 End: 06-05-2024 Subsequent hospital visit by physician Cammy Counts Include [address] [facility] Wstr (I-Stat) Work Phone: Cat Scan Comment on above: Other specified inju amber of unspecified lower leg, initial encounter [S89.80XA] Start: 06-04-2024 End: 06-04-2024 ambulatory Deena Waggoner MD Work Phone: [facility] [facility] Comment on above: Other specified inju amber of unspecified lower leg, initial encounter (Primary Dx); Antiphospholipid antibody syndrome (HCC); Hypercoagulable state (HCC); CTEPH (chronic thromboembolic pulmonary hypertension) (HCC); Stage 3b chronic kidney disease (HCC) Start: 06-04-2024 End: 06-04-2024 Patient encounter procedure Deena Waggoner MD Work Phone: [facility] Hematology/Oncology Start: 04-12-2024 End: 04-12-2024 Follow-up encounter Mirian Horan MD Work Phone: [facility] Comment on above: Remote Pacemaker Fol low Up Start: 04-12-2024 Professional / ancofelia carver services management Mirian Horan MD Work Phone: [facility] Start: 04-12-2024 End: 04-12-2024 Patient encounter procedure Rem Device Ck [facility] Start: 12-29-2023 Follow-up encounter Mirian Horan MD Work Phone: [facility] Start: 12-29-2023 Professional / ancil mehul services management Mirian Horan MD Work Phone: [facility] Start: 12-29-2023 End: 12-29-2023 Patient encounter procedure Rem Device Ck [facility] Comment on above: Permanent Pacemaker Start: 12-20-2023 End: 12-20-2023 ambulatory Deena Waggoner MD Work Phone: [facility] Hematology/Oncology Comment on above: Antiphospholipid ant ibody syndrome (HCC) (Primary Dx); Hypercoagulable state (HCC); CTEPH (chronic thromboembolic pulmonary hypertension) (HCC); Stage 3b chronic kidney disease (HCC) Start: 12-20-2023 End: 12-20-2023 Patient encounter procedure Deena Waggoner MD Work Phone: [facility] Start: 10-07-2023 End: 10-07-2023 Patient encounter procedure SMITHA RAY DO [facility] Start: 08-20-2023 End: 08-21-2023 ambulatory SMITHA RAY DO Facility:B Start: 08-20-2023 End: 08-20-2023 Patient encounter procedure SMITHA RAY DO [facility] Start: 08-18-2023 End: 08-19-2023 Emergency department patient visit [facility] Work Phone: Start: 08-05-2023 Telephone encounter Rossy Richardson DO Work Phone: [facility] Comment on above: Medication Problem Start: 08-04-2023 Orders Only Rossy Richardson DO Work Phone: [facility] Comment on above: Orders Start: 08-02-2023 End: 08-02-2023 Admission to [facility] Start: 08-02-2023 End: 08-02-2023 amb[address] Pst 1 Pre Surgical Testing Comment on above: 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] (Primary Dx); Preop testing; Type 2 diabetes mellitus without complication, without long-term current use of insulin (HCC); History of DVT (deep vein thrombosis); Persistent atrial fibrillation (HCC); Recurrent pulmonary emboli (HCC); Mixed hyperlipidemia; Coronary artery disease involving [place] heart without angina pectoris, unspecified vessel or lesion type; Primary hypertension; Presence of cardiac pacemaker; Stage 3 chronic kidney disease, unspecified whether stage 3a or 3b CKD (HCC); Pulmonary HTN (HCC); Hypercoagulable state (HCC) Start: 08-02-2023 End: 08-02-2023 Patient encounter status Pst [facility] Work Phone: Start: 08-01-2023 End: 08-01-2023 Patient encounter procedure Mirian Horan MD Work Phone: [facility] Cardiology [place] Comment on above: Persistent atrial fi brillation (HCC) (Primary Dx); Sinus node dysfunction (HCC); Pacemaker; LBBB (left bundle branch block); 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 Start: 07-07-2023 Telephone encounter Dali moran APRN.CNP Work Phone: [facility] Cardiology Comment on above: Gifts Officer - O ther Results Start: 07-05-2023 Telephone encounter Mirian Horan MD Work Phone: [facility] Cardiology [place] Comment on above: Patient Update Start: 07-01-2023 Patient encounter procedure [facility] Provider [facility] Start: 07-01-2023 Telephone encounter Mirian Horan MD Work Phone: [facility] Cardiology [place] Comment on above: Cardiac Clearance Start: 06-29-2023 End: 06-29-2023 Patient encounter procedure Rossy Richardson DO Work Phone: [facility] Cardiac, Thoracic and Vascular Specialties Comment on above: Presence of IVC filt er (Primary Dx); Other acute pulmonary embolism without acute cor pulmonale (HCC); Personal history of DVT (deep vein thrombosis) Start: 06-23-2023 End: 06-23-2023 Anticoagulant drug monitoring Deena Waggoner MD Work Phone: [facility] Hematology/Oncology Comment on above: Antiphospholipid ant ibody syndrome (HCC) (Primary Dx); Hypercoagulable state (HCC); CTEPH (chronic thromboembolic pulmonary hypertension) (HCC); Stage 3b chronic kidney disease (HCC); Kidney hematoma, unspecified laterality, subsequent encounter; Chronic anticoagulation; Obesity, Class III, BMI 40-49.9 (morbid obesity) (HCC) Start: 06-23-2023 End: 06-23-2023 Patient encounter procedure Niharika Frias MD Work Phone: Pulmonary Medicine Comment on above: Pulmonary hypertensi on (HCC) (Primary Dx); History of pulmonary embolism; EZIO (obstructive sleep apnea); Persistent atrial fibrillation (HCC); Malaise and fatigue Start: 06-20-2023 End: 06-21-2023 ambulatory SMITHA RAY DO Facility:B Start: 06-20-2023 End: 06-20-2023 Patient encounter procedure SMITHA RAY DO [facility] Start: 06-14-2023 End: 06-14-2023 Subsequent hospital visit by physician Mri 2 [place] [facility] (I-Stat/Lg Bore/1.5t) RADIO [facility] Comment on above: Malignant neoplasm o f right kidney, except renal pelvis (HCC) [C64.1] Start: 06-08-2023 Refill Niharika Moulton i, MD Work Phone: Pulmonary Medicine Comment on above: Refill Request Start: 05-30-2023 End: 05-31-2023 ambulatory SMITHA RAY DO Facility:B Start: 05-30-2023 End: 05-30-2023 Patient encounter procedure SMITHA RAY DO [facility] Start: 05-06-2023 Telephone encounter Niharika Frias MD Work Phone: Pulmonary Comment on above: Results Start: 04-05-2023 Chart abstracting Smitha Arroyo martakalpesh COPE Work Phone: [facility] Comment on above: Psg Check In (Adult) Start: 03-29-2023 Refill Niharika Moulton i, MD Work Phone: Pulmonary Medicine Comment on above: Refill Request Start: 03-15-2023 End: 03-15-2023 Follow-up encounter Mirian Horan MD Work Phone: [facility] Comment on above: Remote Pacemaker Fol low Up Start: 03-15-2023 Pacemaker Remote F/U Mirian Gibson MD Work Phone: [facility] Start: 03-15-2023 End: 03-15-2023 Patient encounter procedure Rem Device Ck [facility] Start: 02-28-2023 End: 02-28-2023 Patient encounter procedure Niharika Frias MD Work Phone: Pulmonary Medicine Comment on above: Pulmonary hypertensi on (HCC) (Primary Dx); History of pulmonary embolism; EZIO (obstructive sleep apnea); Renal cell carcinoma of right kidney (HCC); Antiphospholipid antibody positive; Persistent atrial fibrillation (HCC); Malaise and fatigue Start: 01-04-2023 Telephone encounter Kandi Joelco RT(R ) [facility] Comment on above: Derm Problem Start: 12-28-2022 End: 12-28-2022 ambulatory Deena Waggoner MD Work Phone: [facility] Hematology/Oncology Comment on above: Antiphospholipid ant ibody syndrome (HCC) (Primary Dx); Hypercoagulable state (HCC); CTEPH (chronic thromboembolic pulmonary hypertension) (HCC); Kidney hematoma, unspecified laterality, subsequent encounter; Stage 3b chronic kidney disease (HCC) Start: 12-28-2022 End: 12-28-2022 Patient encounter procedure Deena Waggoner MD Work Phone: [facility] Hematology/Oncology Start: 12-22-2022 Telephone encounter Danielle elder DO Work Phone: [place] [facility] Comment on above: Orders Start: 12-21-2022 End: 12-21-2022 Patient encounter procedure Danielle Fonseca DO Work Phone: [place] [facility] Comment on above: Malignant neoplasm o f right kidney, except renal pelvis (HCC) (Primary Dx) Start: 12-20-2022 Telephone encounter Danielle elder DO Work Phone: Urology Comment on above: Appointment Start: 12-13-2022 End: 12-13-2022 Subsequent hospital visit by physician Derek Callahan MD Work Phone: [facility] Comment on above: Renal cell carcinoma of right kidney (HCC) [C64.1] Start: 12-07-2022 End: 12-07-2022 Follow-up encounter Mirian Horan MD Work Phone: [facility] Comment on above: Remote Pacemaker Fol low Up Start: 12-07-2022 Pacemaker Remote F/U Mirian Gibson MD Work Phone: [facility] Start: 12-07-2022 End: 12-07-2022 Patient encounter procedure Rem Device Ck [facility] Start: 12-03-2022 Patient encounter procedure [facility] Provider [facility] Start: 11-30-2022 End: 11-30-2022 ambulatory Deena Waggoner MD Work Phone: [facility] Hematology/Oncology Comment on above: Antiphospholipid ant ibody syndrome (HCC) (Primary Dx); Hypercoagulable state (HCC); CTEPH (chronic thromboembolic pulmonary hypertension) (HCC); Right kidney mass; Kidney hematoma, unspecified laterality, initial encounter Start: 11-30-2022 End: 11-30-2022 Patient encounter procedure Deena Waggoner MD Work Phone: [facility] Start: 11-29-2022 Telephone encounter Mirian Horan MD Work Phone: [facility] Cardiology [place] Comment on above: Gifts Officer - O ther (Clearance form ) Start: 11-23-2022 End: 11-23-2022 Patient encounter procedure Danielle Fonseca DO Work Phone: [place] [facility] Comment on above: Renal cell carcinoma of right kidney (HCC) (Primary Dx); Persistent atrial fibrillation (HCC) Start: 11-22-2022 Telephone encounter Danielle elder DO Work Phone: [place] [facility] Comment on above: Appointment Start: 11-10-2022 ambulatory DANIELLE FONSECA Facilit y:[facility] Start: 11-10-2022 End: 11-10-2022 Subsequent hospital visit by physician [facility] (1.5t) Radiology Comment on above: Other specified diso rders of kidney and ureter [N28.89] Start: 11-03-2022 Telephone encounter Danielle elder DO Work Phone: Urology Comment on above: Orders Start: 10-27-2022 ambulatory DANIELLE Boone y:[facility] Start: 10-27-2022 End: 10-27-2022 Subsequent hospital visit by physician [facility] (1.5t) Radiology Start: 10-14-2022 End: 10-14-2022 Patient encounter procedure Niharika Frias MD Work Phone: Pulmonary Medicine Comment on above: Pulmonary hypertensi on (HCC) (Primary Dx); Renal cell carcinoma of right kidney (HCC); History of pulmonary embolism; Antiphospholipid antibody positive; Persistent atrial fibrillation (HCC) Start: 10-06-2022 Telephone encounter Danielle elder DO Work Phone: [place] [facility] Comment on above: MRI Appointment Results (CT chest/) Start: 10-05-2022 End: 10-05-2022 Patient encounter procedure Danielle Fonseca DO Work Phone: [place] [facility] Comment on above: Renal cell carcinoma of right kidney (HCC) (Primary Dx); Intra-abdominal and pelvic swelling, mass and lump, unspecified site; Persistent atrial fibrillation (HCC) Start: 10-04-2022 End: 10-04-2022 ambulatory [facility] [place] [facility] Comment on above: Pulmonary Hypertensi on Start: 10-04-2022 End: 10-04-2022 Patient encounter procedure Pulm [facility] Start: 09-29-2022 End: 09-29-2022 Subsequent hospital visit by physician Ct Counts Include [facility] (I-Stat) Work Phone: Cat Scan Comment on above: Renal cell carcinoma of right kidney (HCC) [C64.1] Start: 09-23-2022 End: 09-28-2022 ambulatory SMITHA RAY DO Facility:B Start: 09-23-2022 End: 09-27-2022 Outreach Lab SMITHA RAY DO [facility] Start: 08-26-2022 End: 08-26-2022 Follow-up encounter Mirian Horan MD Work Phone: [facility] Comment on above: Remote Pacemaker Fol low Up Start: 08-26-2022 Pacemaker Remote F/U Mirian Gibson MD Work Phone: [facility] Start: 08-26-2022 Telephone encounter Mirian Horan MD Work Phone: [facility] Cardiology [place] Comment on above: Preparations For Pro cedures Start: 08-26-2022 End: 08-26-2022 Patient encounter procedure Rem Device Ck [facility] Start: 08-13-2022 End: 08-13-2022 Patient encounter procedure Mirian Horan MD Work Phone: [facility] Cardiology [place] Comment on above: Atrial fibrillation, persistent (HCC) (Primary Dx); Persistent atrial fibrillation (HCC); LBBB (left bundle branch block); Sinus node dysfunction (HCC); Coronary artery disease involving [place] heart without angina pectoris, unspecified vessel or lesion type; Current use of fdc anticoagulation; Pacemaker Start: 07-29-2022 End: 07-29-2022 Patient encounter procedure Jesenia Arzate APRN.ELECTRIC ARC WELDER Work Phone: Pulmonary Medicine Comment on above: Hospital discharge f ollow-up (Primary Dx); Pneumonia of right upper lobe due to infectious organism; 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); Pulmonary hypertension (HCC); Renal cell carcinoma of right kidney (HCC) Start: 07-19-2022 End: 07-19-2022 Patient encounter procedure aDli Dillon APRN.ELECTRIC ARC WELDER Work Phone: [facility] Cardiology Comment on above: Persistent atrial fi brillation (HCC) (Primary Dx) Start: 07-19-2022 Telephone encounter Dali moran APRN.ELECTRIC ARC WELDER Work Phone: [facility] Cardiology Comment on above: Appointment Start: 07-17-2022 End: 07-17-2022 Patient encounter procedure SMITHA RAY DO [facility] Start: 07-04-2022 Orders Only Deena Hidalgo MD Work Phone: [facility] Hematology/Oncology Comment on above: Recurrent pulmonary emboli (HCC) (Primary Dx) Start: 07-02-2022 ambulatory SMITHA RAY IV Facili ty:[facility] Start: 07-02-2022 End: 07-02-2022 Subsequent hospital visit by physician [facility] 2 Work Phone: Radiology Comment on above: TESTICULAR PAIN Start: 07-02-2022 Telephone encounter Danielle elder DO Work Phone: [place] [facility] Comment on above: Wants your opinion Start: 07-01-2022 End: 07-01-2022 Subsequent hospital visit by physician Ct Prep [place] RADIO CT SCAN [place] Comment on above: Other pulmonary embo lism without acute cor pulmonale [I26.99] Start: 06-29-2022 End: 07-09-2022 Subsequent hospital visit by physician Anni Kathleen MD Work Phone: [facility] Start: 06-28-2022 Telephone encounter Smitha webb PA-C Work Phone: [facility] Comment on above: Hospital Follow Up Start: 06-22-2022 Follow-up encounter Mirian Horan MD Work Phone: [facility] Start: 06-22-2022 Patient encounter procedure Mirian Horan MD Work Phone: [facility] Start: 06-16-2022 End: 06-16-2022 Patient encounter procedure Sasha Alexis APRN.ELECTRIC ARC WELDER Work Phone: [facility] Comment on above: Confusion (Primary D x) Start: 06-14-2022 Telephone encounter Samuel Jain MD Work Phone: [facility] [place] Comment on above: Patient Update Start: 06-05-2022 Telephone encounter Chriss yepez MD Work Phone: [facility] Comment on above: Patient Update Start: 06-05-2022 End: 06-05-2022 Emergency department patient visit [facility]Emergency [facility] Start: 05-31-2022 Telephone encounter Josie Sharp SEASONAL CLERK.ELECTRIC ARC WELDER Work Phone: [facility] Comment on above: Hospital F/U Orders Start: 05-28-2022 Telephone encounter Kandi Kingsley RT(R ) [facility] Comment on above: Derm Problem Start: 05-26-2022 Patient encounter procedure Anthony Del Cid MD [facility] Comment on above: Encounter for consul tation (Primary Dx) Start: 05-20-2022 Telephone encounter Rossy Richardson DO Work Phone: [facility] Comment on above: Patient Update Start: 05-19-2022 Patient encounter procedure [facility] Start: 05-18-2022 Telephone encounter Samuel Jain MD Work Phone: [facility] [place] Comment on above: Cardiac Clearance Start: 05-18-2022 End: 05-18-2022 Patient encounter procedure Samuel Jain MD Work Phone: [facility] [place] Comment on above: Pre-operative cardio vascular examination (Primary Dx); Status post placement of cardiac pacemaker; Persistent atrial fibrillation (HCC); Pulmonary HTN (HCC) Start: 05-18-2022 End: 05-18-2022 Patient encounter status Samuel Jain MD Work Phone: [facility] [place] Start: 05-14-2022 Patient encounter procedure [facility] Provider [facility] Start: 05-14-2022 Telephone encounter Rossy Richardson DO Work Phone: [facility] Comment on above: Patient Question (Up coming surgery should he stop his 81mg aspirin?) Gifts Officer - O ther Start: 05-13-2022 Follow-up encounter Mirian Horan MD Work Phone: [facility] Start: 05-13-2022 Pacemaker Remote F/U Mirian Gibson MD Work Phone: [facility] Start: 05-11-2022 Telephone encounter Rossy Dylan DO Work Phone: [facility] Comment on above: Schedule Surgery Start: 05-04-2022 End: 05-04-2022 Patient encounter procedure Dali Dillon SEASONAL CLERK.ELECTRIC ARC WELDER Work Phone: [facility] Cardiology Comment on above: Preop cardiovascular exam Start: 05-04-2022 End: 05-04-2022 Patient encounter status Dali Dillon SEASONAL CLERK.ELECTRIC ARC WELDER Work Phone: [facility] Cardiology Start: 04-30-2022 Patient encounter status Dali Dillon SEASONAL CLERK.ELECTRIC ARC WELDER Work Phone: [facility] Work Phone: Start: 03-30-2022 End: 03-30-2022 Subsequent hospital visit by physician [facility] 2 Work Phone: Molecular Imaging Comment on above: Acquired cyst of kid soco [N28.1] Start: 03-23-2022 Telephone encounter Dali moran SEASONAL CLERK.ELECTRIC ARC WELDER Work Phone: [facility] Cardiology [place] Comment on above: Cardiac Clearance Start: 03-09-2022 End: 03-09-2022 Patient encounter procedure Gabohallieroger CoreaRaymundo DO Work Phone: [place] [facility] Comment on above: Renal mass, right (P rimary Dx); Acquired cyst of kidney; Status post placement of cardiac pacemaker; History of DVT (deep vein thrombosis); Persistent atrial fibrillation (HCC) Start: 02-22-2022 End: 02-22-2022 Subsequent hospital visit by physician [facility] [place] [facility] 1 (I-Stat) RADIO CT SCAN [facility] Comment on above: A FIB, PULM HYPERTWN RUBI, PRE OP TESTION n28.89 r93.89 Start: 02-22-2022 End: 02-22-2022 Patient encounter status Card [facility] C ARDIAC TESTING Start: 02-22-2022 End: 02-22-2022 Subsequent hospital visit by physician Card Lab Nuclear Camera [facility] CARDIAC TESTING Comment on above: A FIB, PULM HYPERTWN RUBI, PRE OP TESTION Start: 02-13-2022 Refill Niharika Moulton i, MD Work Phone: Pulmonary Medicine Comment on above: Refill Request Start: 02-11-2022 Telephone encounter Mirian Horan MD Work Phone: [facility] [place] Comment on above: A-fib Start: 02-04-2022 Follow-up encounter Mirian Horan MD Work Phone: [facility] Start: 02-04-2022 Pacemaker Remote F/U Mirian Gibson MD Work Phone: [facility] Start: 02-04-2022 End: 02-04-2022 ambulatory Rem [facility] Comment on above: Permanent Pacemaker Start: 02-04-2022 End: 02-04-2022 Patient encounter procedure Rem Device [facility] Start: 02-01-2022 Telephone encounter Rossy Richardson DO Work Phone: [facility] Comment on above: Schedule Surgery Start: 01-29-2022 End: 01-29-2022 Patient encounter procedure Rossy Richardson DO Work Phone: [facility] Comment on above: 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) (Primary Dx); Renal cell carcinoma, unspecified laterality (HCC); Chronic pulmonary embolism, unspecified pulmonary embolism type, unspecified whether acute cor pulmonale present (HCC) Start: 01-29-2022 Telephone encounter Berny Shell MD Work Phone: [place] [facility] Comment on above: Erroneous encounter- disregard Start: 01-26-2022 End: 01-26-2022 Patient encounter procedure ARIANA HINTON FLACO-ELECTRIC ARC WELDER [facility] Start: 01-19-2022 End: 01-19-2022 Patient encounter procedure ARIANA HINTON SEASONAL CLERK-ELECTRIC ARC WELDER [facility] Procedures Date Procedure Procedure Detail Performing Clinician Start: 05-09-2025 Ecg routine ecg w/le ast 12 lds w/i&r Mirian Horan MD Work Phone: Start: 02-26-2025 Echo tthrc r-t 2d w/wom-mode compl spec&colr d Jesenia Arzate SEASONAL CLERK.ELECTRIC ARC WELDER Work Phone: Start: 01-04-2025 Ecg routine ecg w/le ast 12 lds w/i&r Naveen Nino SEASONAL CLERK.ELECTRIC ARC WELDER Work Phone: Start: 10-25-2024 PACEMAKER REMOTE CHECK Mirian Horan MD Work Phone: Start: 09-24-2024 INFLUENZA A&B MOLECU LAR (POC) Janie Orellana SEASONAL CLERK.ELECTRIC ARC WELDER Work Phone: Start: 08-31-2024 Radiologic exam ches t 2 views Kameron Contreras SEASONAL CLERK.ELECTRIC ARC WELDER Work Phone: Start: 07-19-2024 PACEMAKER CLINIC CHECK Mirian Horan MD Work Phone: Start: 06-05-2024 Ct lower extremity w /o contrast material Deena Waggoner MD Work Phone: Start: 04-12-2024 PACEMAKER REMOTE CHECK Mirian Horan MD Work Phone: Start: 12-29-2023 PACEMAKER REMOTE CHECK Mirian Horan MD Work Phone: Start: 08-01-2023 Ecg routine ecg w/le ast 12 lds w/i&r Mirian Horan MD Work Phone: Start: 03-15-2023 PACEMAKER REMOTE CHECK Mirian Horan MD Work Phone: Start: 12-13-2022 Renal biopsy prq trocar/needle Danielle Fonseca DO Work Phone: Start: 12-13-2022 End: 12-13-2022 Blood count complete automated Derek Callahan MD Work Phone: Start: 12-07-2022 PACEMAKER REMOTE CHECK Mirian Horan MD Work Phone: Start: 11-23-2022 Ophelia post-voiding residual urine&/bladder cap Danielle Fonseca DO Work Phone: Start: 11-10-2022 Mri abdomen w/o & w/contrast material Danielle Fonseca DO Work Phone: Start: 10-04-2022 Brncdilat rspse spmt ry pre&post-brncdilat admn Dwight Pittman MD Work Phone: Start: 09-29-2022 Ct abdomen & pelvis w/o contrast material Danielle Fonseca DO Work Phone: Start: 09-29-2022 Ct thorax w/o contra st material Jesenia Arzate SEASONAL CLERK.ELECTRIC ARC WELDER Work Phone: Start: 08-26-2022 PACEMAKER REMOTE CHECK Mirian Horan MD Work Phone: Start: 08-13-2022 Ecg routine ecg w/le ast 12 lds w/i&r Mirian Horan MD Work Phone: Start: 07-02-2022 Basic metabolic pane l calcium total Aure Gonzalez SEASONAL CLERK Work Phone: Start: 07-01-2022 Ct abdomen & pelvis w/o contrast material [facility] Provider Start: 07-01-2022 Blood count complete automated Demond Cosme MD Work Phone: Start: 06-30-2022 Prothrombin time Demond Cosme MD Work Phone: Start: 06-22-2022 PACEMAKER CLINIC CHECK Mirian Horan MD Work Phone: Start: 06-05-2022 CT of abdomen and pe lvis without contrast Start: 05-13-2022 PACEMAKER REMOTE CHECK Mirian Horan MD Work Phone: Start: 03-30-2022 Kidney img morpholog y vascular flow 1 w/rx Gaboyram Raymundo DO Work Phone: Start: 02-22-2022 Myocardial spect mul tiple studies [facility] Provider Start: 02-04-2022 PACEMAKER REMOTE CHECK Mirian Horan MD Work Phone: Start: 10-11-2019 History of placement of stent for coronary artery disease S/P coronary artery stent placement Rossy Richardson DO Work Phone: Cardiac catheterization MANSOOR VELARDE SEASONAL CLERK-ELECTRIC ARC WELDER Comment on above: 05/25/2018 Cholecystectomy ARIANA Nelson SEASONAL CLERK-ELECTRIC ARC WELDER History of placement of stent for coronary artery disease History of heart artery stent Naveen Nino SEASONAL CLERK.ELECTRIC ARC WELDER Work Phone: History of placement of stent for coronary artery disease History of heart artery stent Dali Dillon SEASONAL CLERK.ELECTRIC [employer]DER Work Phone: Stented coronary art maciej (finding) ARIANA HINTON SEASONAL CLERK-ELECTRIC AR[employer] W[employer]DER Comment on above: x1 Tonsillectomy ARIANA HINTON SEASONAL CLERK-ELECTRIC ARC WELDER Viral antigen assay Plan of Treatment Date Care Activity Detail Author Start: 04-11-2026 End: 04-29-2026 Alkaline phosphatase [Enzymatic activity/volume] in Serum or Plasma ALKALINE PHOSPHATASE Lab Routine Renal cell carcinoma of right kidney (HCC) Malignant neoplasm of right kidney, except renal pelvis (HCC) Stage 3 chronic kidney disease, unspecified whether stage 3a or 3b CKD (HCC) Expected: 04/11/2026 (Approximate), Expires: 04/29/2026 [facility] Work Phone: Comment on above: Expected: 04/11/2026 (Approximate), Expi res: 04/29/2026 Start: 04-11-2026 End: 04-29-2026 Basic metabolic 2000 panel - Serum or Plasma BASIC METABOLIC PANEL Lab Routine Renal cell carcinoma of right kidney (HCC) Malignant neoplasm of right kidney, except renal pelvis (HCC) Stage 3 chronic kidney disease, unspecified whether stage 3a or 3b CKD (HCC) Expected: 04/11/2026 (Approximate), Expires: 04/29/2026 [facility] Comment on above: Expected: 04/11/2026 (Approximate), Expi res: 04/29/2026 Start: 04-11-2026 End: 04-29-2026 Gamma glutamyl transferase [Enzymatic activity/volume] in Serum or Plasma GGT Lab Routine Renal cell carcinoma of right kidney (HCC) Malignant neoplasm of right kidney, except renal pelvis (HCC) Stage 3 chronic kidney disease, unspecified whether stage 3a or 3b CKD (HCC) Expected: 04/11/2026 (Approximate), Expires: 04/29/2026 [facility] Comment on above: Expected: 04/11/2026 (Approximate), Expi res: 04/29/2026 Start: 04-11-2026 End: 04-29-2026 MR Kidney WO and W contrast IV MRI KIDNEY WO/W IVCON Radiology Routine Renal cell carcinoma of right kidney (HCC) Malignant neoplasm of right kidney, except renal pelvis (HCC) Stage 3 chronic kidney disease, unspecified whether stage 3a or 3b CKD (HCC) Expected: 04/11/2026 (Approximate), Expires: 04/29/2026 [facility] Comment on above: Expected: 04/11/2026 (Approximate), Expi res: 04/29/2026 Start: 04-11-2026 End: 04-29-2026 XR Chest PA and Lateral XR CHEST 2V FRONTAL/LAT Radiology Routine Renal cell carcinoma of right kidney (HCC) Malignant neoplasm of right kidney, except renal pelvis (HCC) Stage 3 chronic kidney disease, unspecified whether stage 3a or 3b CKD (HCC) Expected: 04/11/2026 (Approximate), Expires: 04/29/2026 [facility] Comment on above: Expected: 04/11/2026 (Approximate), Expi res: 04/29/2026 Start: 02-04-2026 Complete blood count Hemoglobin/Hematocrit [facility] Start: 02-04-2026 Creatinine measurement Serum Creatinine [facility] Start: 02-01-2026 Complete blood count Hemoglobin/Hematocrit [facility] Start: 02-01-2026 Creatinine measurement Serum Creatinine [facility] Start: 01-14-2026 BP Controlled (<130/80) BP Controlled (<130/80) [facility] in Start: 11-28-2025 Complete blood count Hemoglobin/Hematocrit [facility] Start: 11-28-2025 Creatinine measurement Serum Creatinine [facility] Start: 11-28-2025 Hepatitis B surface antibody level LDL Cholesterol [facility] Start: 11-13-2025 End: 11-13-2025 Patient encounter procedure 11/13/2025 11:20 AM EDT Office Visit [facility] [address] [place] [address] Mirian Horan MD [address] [place] [address] [place] [phone] 6 month follow up. [facility] Comment on above: 6 month follow up. Start: 09-09-2025 End: 09-09-2025 Patient encounter procedure 09/09/2025 8:40 AM EST Office Visit Cardiology [address] [place] [address] Aure Jaeger MD [address] [place] [address] [place] [address] [phone] 6 month follow up Cardiology Comment on above: 6 month follow up Start: 08-31-2025 BP Controlled (<130/80) BP Controlled (<130/80) [facility] inic Start: 08-03-2025 Hemoglobin A1c measurement HbA1C [facility] Start: 07-08-2025 End: 07-08-2025 Patient encounter procedure 07/08/2025 3:30 PM EST Office Visit Pulmonary Medicine [address] [place], [place] [phone] Niharika Frias MD [address] [place] [address] [phone] Lung nodules [R91.8]; Lymphadenopathy [R59.1] [facility] Comment on above: Lung nodules [R91.8]; Lymphadenopathy [R 59.1] Start: 06-16-2025 DIABETES SCREEN DIABETES SCREEN [facility] Start: 06-08-2025 DIABETES SCREEN DIABETES SCREEN [facility] Start: 06-07-2025 End: 06-07-2025 Patient encounter procedure 06/07/2025 11:00 AM EDT Appointment [facility] [address] [place], [place] [id number] Lung nodules [R91.8]; Lymphadenopathy [R59.1] [facility] Comment on above: Lung nodules [R91.8]; Lymphadenopathy [R 59.1] Start: 06-07-2025 End: 06-07-2025 ambulatory 06/07/2025 10:45 AM EDT Procedure [facility] [address] [place], [place] [id number] Lung nodules [R91.8]; Lymphadenopathy [R59.1] [facility] Comment on above: Lung nodules [R91.8]; Lymphadenopathy [R 59.1] Start: 06-07-2025 End: 06-07-2025 ambulatory [facility] Comment on above: Lung nodules [R91.8]; Lymphadenopathy [R 59.1] Start: 06-06-2025 Complete blood count Hemoglobin/Hematocrit [facility] Start: 06-06-2025 Creatinine measurement Serum Creatinine [facility] Start: 06-06-2025 Hepatitis B screening Urine Albumin:Creatinine Ratio [facility] Start: 06-06-2025 Hepatitis B surface antibody level LDL Cholesterol [facility] Start: 06-04-2025 BP Controlled (<130/80) BP Controlled (<130/80) [facility] Start: 06-03-2025 End: 06-03-2025 ambulatory 06/03/2025 10:15 AM EDT Visit (SP) Office [facility] [address] [place] [address] Deena Waggoner MD [address] [place] [phone] 6 month ov + labs [facility] Comment on above: 6 month ov + labs Start: 05-26-2025 DIABETES SCREEN DIABETES SCREEN [facility] Start: 05-12-2025 DIABETES SCREEN DIABETES SCREEN [facility] Start: 05-09-2025 End: 05-09-2025 Patient encounter procedure 05/09/2025 9:40 AM EDT Office Visit [facility] [place] [address] [place] [address] Mirian Horan MD [address] [facility] [address] [place] [phone] 6 month follow up. eg [facility] [place] Comment on above: 6 month follow up. eg Start: 04-29-2025 Influenza vaccination Influenza Vaccine (#1) [facility] Start: 04-11-2025 End: 04-11-2025 Patient encounter procedure 04/11/2025 8:45 AM EDT Office Visit Urology [address] [place] [address] Fermin Sanchez MD [address] [place] [phone] Norris in 12/21/2022 renal carcinoma Urology Comment on above: Seen Dr. Norris in 12/21/2022 renal car cinoma Start: 04-05-2025 End: 04-05-2025 Patient encounter procedure 04/05/2025 10:00 AM EDT Office Visit [facility] [place] [address] [place] [address] Mirian Horan MD [address] [place] [phone] 3 month follow up- hlk [facility] Comment on above: 3 month follow up- hlk Start: 04-02-2025 End: 04-02-2025 Patient encounter procedure 04/02/2025 1:40 PM EDT Appointment [facility] [address] [place] [address] C64.9 [facility] Comment on above: C64.9 Start: 03-22-2025 End: 03-22-2025 Patient encounter procedure 03/22/2025 1:30 PM EDT Office Visit [facility] [place] [address] [place] [address] Janie Cedillo APRN.ELECTRIC [employer] [address] [address] hospital follow up [facility] [place] Comment on above: hospital follow up Start: 03-22-2025 End: 03-22-2025 Patient encounter procedure 03/22/2025 10:30 AM EDT Office Visit [facility] [address] [place] [address] Dali Dillon, SEASONAL CLERK.ELECTRIC AR[employer] WELDER [address] [phone] (Fax) hospital follow up [facility] Comment on above: hospital follow up [facility] Start: 03-07-2025 End: 06-06-2025 Natriuretic peptide.B prohormone N-Terminal [Mass/volume] in Serum or Plasma NT PRO BNP Lab Routine Pulmonary hypertension (HCC) HFrEF (heart failure with reduced ejection fraction) (HCC) Expected: 03/07/2025, Expires: 06/06/2025 [facility] Comment on above: Expected: 03/07/2025, Expires: Start: 03-07-2025 End: 03-07-2025 Patient encounter procedure 03/07/2025 10:00 AM EDT Office Visit Pulmonary Medicine [address] [place] [address] Smitha Sidhu PA-C [address] [facility] [address] [place] [address] 2 month f/u Pulmonary Medicine Comment on above: 2 month f/u Start: 02-26-2025 End: 01-03-2026 Echocardiography ECHO Cardiology Routine Pulmonary hypertension (HCC) Expected: 02/26/2025 (Approximate), Expires: 01/03/2026 [facility] Work Phone: Comment on above: Expected: 02/26/2025 (Approximate), Expi res: 01/03/2026 Start: 02-26-2025 End: 02-26-2025 Patient encounter procedure 02/26/2025 10:30 AM EDT Appointment [facility] [address] [place] [address] Pulmonary hypertension (HCC) [I27.20] [facility] Comment on above: Pulmonary hypertension (HCC) [I27.20] Start: 02-01-2025 End: 02-01-2025 Patient encounter procedure 02/01/2025 9:00 AM EDT Office Visit [facility] [address] [place] [address] Dali Dillon, SEASONAL CLERK.ELECTRIC ARC WELDER [address] [facility] [address] [place] [address] overdue 6 month f/u. New diagnosis of LBBB. eg [facility] Comment on above: overdue 6 month f/u. New diagnosis of LB BB. eg Start: 01-31-2025 End: 01-31-2025 Patient encounter procedure [facility] Comment on above: bsc pm/sv/snd Start: 01-14-2025 End: 01-14-2025 Patient encounter procedure 01/14/2025 3:00 PM EDT Office Visit Cardiology [address] [place] [address] Aure Jaeger MD [address] [place] [address] (Fax) Heart Attack 12/29 Cardiology Comment on above: Heart Attack 12/29 Start: 01-04-2025 End: 01-04-2025 Patient encounter procedure 01/04/2025 9:00 AM EDT Office Visit [facility] [place] [address] [place] [address] Naveen Nino APRN.ELECTRIC ARC WELDER [address] [place] [address] Overdue 1 yr f/u. Afib EKG dlm [facility] [place] Comment on above: Overdue 1 yr f/u. Afib EKG dlm Start: 12-03-2024 End: 12-03-2024 ambulatory 12/03/2024 11:30 AM EDT Visit (SP) Office [facility] [address] [place] [address] Deena Waggoner MD [address] [place] [phone] 6 month ov [facility] Comment on above: 6 month ov Start: 11-01-2024 LIPID SCREEN LIPID SCREEN [facility] Start: 10-25-2024 End: 10-25-2024 Patient encounter procedure 10/25/2024 8:00 AM EST Procedure [facility] [address] [place] [address] bsc pm/sv/snd [facility] Comment on above: bsc pm/sv/snd Start: 08-29-2024 Advance Directive Discussion Advance Directive Discussion [facility] Start: 08-02-2024 BP Controlled (<130/80) BP Controlled (<130/80) [facility] Start: 08-01-2024 BP Controlled (<130/80) BP Controlled (<130/80) [facility] Start: 08-01-2024 End: 08-01-2024 Patient encounter procedure 08/01/2024 9:00 AM EST Office Visit [facility] [place] [address] [place], [place] [phone] Naveen Nino APRN.ELECTRIC ARC WELDER [address] [place], [place] [phone] annual f/u with [employer] srs [facility] [place] Comment on above: annual f/u with [employer] s[employer] Start: 07-19-2024 End: 07-19-2024 Patient encounter procedure 07/19/2024 3:00 PM EST Procedure [facility] [address] [place], [place] [id number] bsc pm/sv/snd-yearly [facility] Comment on above: bsc pm/sv/snd-yearly Start: 07-04-2024 Complete blood count Hemoglobin/Hematocrit [facility] Start: 07-04-2024 Creatinine measurement Serum Creatinine [facility] Start: 07-04-2024 Hemoglobin/Hematocrit Hemoglobin/Hematocrit [facility] Start: 07-04-2024 Serum Creatinine Serum Creatinine [facility] Start: 06-04-2024 End: 06-04-2024 ambulatory 06/04/2024 11:15 AM EDT Visit (SP) Office [facility] [address] [place], [place] [phone] Deena Waggoner MD [address] [phone] 6 montho v [facility] Comment on above: 6 montho v Start: 04-29-2024 Covid-19 Vaccine ( season) Covid-19 Vaccine ( season) [facility] Start: 04-29-2024 Influenza vaccination Influenza Vaccine (#1) [facility] Start: 04-12-2024 End: 04-12-2024 Patient encounter procedure 04/12/2024 8:00 AM EDT Procedure [facility] [address] [place], [place] [id number] bs pm/sv/afib [facility] Comment on above: bs pm/sv/afib Start: 04-11-2024 Hepatitis B screening URINE ALBUMIN:CREATININE RATIO [facility] Start: 04-11-2024 Hepatitis B surface antibody level LDL CHOLESTEROL [facility] Start: 02-05-2024 DIABETES SCREEN DIABETES SCREEN [facility] Start: 12-29-2023 BP CONTROLLED (<130/80) BP CONTROLLED (<130/80) [facility] Start: 12-29-2023 End: 12-29-2023 Patient encounter procedure 12/29/2023 8:00 AM EDT Procedure [facility] [address] [place] [address] BSC PM/ dr Erin URRUTIA [facility] Comment on above: BSC PM/ dr Erin URRUTIA Start: 10-14-2023 BP CONTROLLED (<130/80) BP CONTROLLED (<130/80) [facility] Start: 10-12-2023 Hemoglobin A1c measurement HbA1C [facility] Start: 10-12-2023 Hemoglobin A1c/Hemoglobin.total in Blood HBA1C [facility] Start: 09-16-2023 BP CONTROLLED (<130/80) BP CONTROLLED (<130/80) [facility] Start: 08-29-2023 Advance Directive Discussion Advance Directive Discussion [facility] Start: 08-23-2023 Shingrix Vaccine (2 of 2) Shingrix Vaccine (2 of 2) [facility] Start: 08-19-2023 [facility] Start: 07-19-2023 BP CONTROLLED (<130/80) BP CONTROLLED (<130/80) [facility] Start: 05-12-2023 BP CONTROLLED (<130/80) BP CONTROLLED (<130/80) [facility] Start: 04-29-2023 Covid-19 Vaccine ( season) Covid-19 Vaccine ( season) [facility] Start: 04-29-2023 Influenza vaccination [facility] Start: 12-29-2022 Hemoglobin A1c/Hemoglobin.total in Blood HBA1C [facility] Start: 08-29-2022 ADVANCE DIRECTIVE DISCUSSION ADVANCE DIRECTIVE DISCUSSION [facility] Start: 04-29-2022 Influenza vaccination [facility] Start: 12-17-2021 COVID-19 VACCINE (3 - Booster for Mike series) COVID-19 VACCINE (3 - Booster for Mike series) [facility] Start: 10-13-2021 COVID-19 VACCINE (3 - Booster for Mike series) COVID-19 VACCINE (3 - Booster for Mike series) [facility] Start: 08-29-2021 ADVANCE DIRECTIVE DISCUSSION ADVANCE DIRECTIVE DISCUSSION [facility] Start: 08-29-2021 DEPRESSION ASSESSMENT DEPRESSION ASSESSMENT [facility] Start: 11-01-2020 Hepatitis B surface antibody level LDL CHOLESTEROL [facility] Start: 2017 PNEUMOCOCCAL: 65+ (1 - PCV) PNEUMOCOCCAL: 65+ (1 - PCV) [facility] Start: 06-29-2017 Medicare Annual Wellness Visit Medicare Annual Wellness Visit [facility] Start: 2012 Hepatitis B Vaccine (1 of 3 - Risk 3-dose series) Hepatitis B Vaccine (1 of 3 - Risk 3-dose series) [facility] Start: 2012 RSV Vaccine (1 - 1-dose 60+ series) RSV Vaccine (1 - 1-dose 60+ series) [facility] Start: 2012 RSV Vaccine (1 - Risk 60-74 years 1-dose series) RSV Vaccine (1 - Risk 60-74 years 1-dose series) [facility] Start: 2002 SHINGRIX VACCINE (1 of 2) SHINGRIX VACCINE (1 of 2) [facility] Start: 1997 COLOGUARD (FIT-DNA) COLOGUARD (FIT-DNA) [facility] Start: 1997 Colonoscopy COLONOSCOPY [facility] Start: 1997 COLORECTAL CANCER SCREENING COLORECTAL CANCER SCREENING [facility] Start: [address] COLONOGRAPHY [facility] Start: 1997 FECAL OCCULT BLOOD FECAL OCCULT BLOOD [facility] Start: 1997 Screening for malignant neoplasm of colon [facility] Start: 1997 SIGMOIDOSCOPY SIGMOIDOSCOPY [facility] Start: 05-28-1995 Urine microalbumin profile [facility] Start: 1970 ANNUAL PCP TEAM CHRONIC DISEASE VISIT ANNUAL PCP TEAM CHRONIC DISEASE VISIT [facility] Start: 1970 Anxiety Screening Anxiety Screening [facility] Start: 1970 BP CONTROLLED (<130/80) BP CONTROLLED (<130/80) [facility] Start: 1970 HEPATITIS C SCREENING HEPATITIS C SCREENING [facility] Start: 11-14-1970 zzBP Controlled (<130/80) (Retired) zzBP Controlled (<130/80) (Retired) [facility] Start: 1964 Adult depression screening assessment DEPRESSION SCREENING [facility] Start: 1962 3 comp foot exam completed DIABETIC FOOT EXAM [facility] Start: 1962 Diabetic foot examination Diabetic Foot Exam [facility] Start: 1962 Glaucoma screening Dilated Retinal Exam [facility] Start: 1962 Hepatitis B screening URINE ALBUMIN:CREATININE RATIO [facility] Start: 1962 Hepatitis C antibody, confirmatory test DILATED RETINAL EXAM [facility] Start: 1958 Pneumococcal Vaccine: 65+ (1 - PCV) Pneumococcal Vaccine: 65+ (1 - PCV) [facility] Start: 1958 PNEUMOCOCCAL: 65+ (1 - PCV) PNEUMOCOCCAL: 65+ (1 - PCV) [facility] Start: 1957 Hemoglobin A1c/Hemoglobin.total in Blood HBA1C [facility] End: 12-03-2025 CBC W Auto Differential panel - Blood COMPLETE BLOOD COUNT AND DIFFERENTIAL Lab STAT Antiphospholipid antibody syndrome (HCC) Stage 3b chronic kidney disease (HCC) Every 6 months for 2 Occurrences starting 12/03/2024 until 12/03/2025 [facility] Work Phone: Comment on above: Every 6 months for 2 Occurrences startin g 12/03/2024 until 12/03/2025 End: 12-03-2025 Cobalamin (Vitamin B12) [Mass/volume] in Serum or Plasma VITAMIN B12 Lab Routine Antiphospholipid antibody syndrome (HCC) Stage 3b chronic kidney disease (HCC) Every 6 months for 2 Occurrences starting 12/03/2024 until 12/03/2025 [facility] Comment on above: Every 6 months for 2 Occurrences startin g 12/03/2024 until 12/03/2025 End: 04-06-2026 CT Chest WO contrast CT CHEST WO IVCON Radiology Routine Lung nodules Lymphadenopathy 1 Occurrences starting 03/07/2025 until 04/06/2026 [facility] Work Phone: Comment on above: 1 Occurrences starting 03/07/2025 until 04/06/2026 End: 08-28-2023 Ct thorax w/o contrast material CT CHEST WO IVCON Radiology Routine Pneumonia of right upper lobe due to infectious organism 1 Occurrences starting 07/29/2022 until 08/28/2023 [facility] Work Phone: Comment on above: 1 Occurrences starting 07/29/2022 until 08/28/2023 ECG B/O W INTERP (ME D OFFICE) ECG B/O W INTERP (MED OFFICE) ECG Routine Preop cardiovascular exam Ordered: 05/04/2022 [facility] Work Phone: Comment on above: Ordered: 05/04/2022 ECG B/O W INTERP (ME D OFFICE) ECG B/O W INTERP (MED OFFICE) ECG Routine Pre-operative cardiovascular examination Ordered: 05/18/2022 [facility] Work Phone: Comment on above: Ordered: 05/18/2022 ECG B/O W INTERP (ME D OFFICE) ECG B/O W INTERP (MED OFFICE) ECG Routine Persistent atrial fibrillation (HCC) Ordered: 07/19/2022 [facility] Work Phone: Comment on above: Ordered: 07/19/2022 ECG B/O W INTERP (ME D OFFICE) ECG B/O W INTERP (MED OFFICE) ECG Routine LBBB (left bundle branch block) Ordered: 02/01/2025 [facility] Work Phone: Comment on above: Ordered: 02/01/2025 End: 06-23-2024 Echocardiography ECHO Cardiology Routine Pulmonary hypertension (HCC) 1 Occurrences starting 06/23/2023 until 06/23/2024 [facility] Work Phone: Comment on above: 1 Occurrences starting 06/23/2023 until 06/23/2024 End: 12-03-2025 Ferritin [Mass/volume] in Serum or Plasma FERRITIN Lab Routine Antiphospholipid antibody syndrome (HCC) Stage 3b chronic kidney disease (HCC) Every 6 months for 2 Occurrences starting 12/03/2024 until 12/03/2025 [facility] Comment on above: Every 6 months for 2 Occurrences startin g 12/03/2024 until 12/03/2025 End: 12-03-2025 Iron and Iron binding capacity panel - Serum or Plasma IRON AND TIBC Lab Routine Antiphospholipid antibody syndrome (HCC) Stage 3b chronic kidney disease (HCC) Every 6 months for 2 Occurrences starting 12/03/2024 until 12/03/2025 [facility] Comment on above: Every 6 months for 2 Occurrences startin g 12/03/2024 until 12/03/2025 End: 04-08-2023 Kidney img morphology vascular flow 1 w/rx NM RENAL FLOW/FXN W PHARM Radiology Routine Acquired cyst of kidney 1 Occurrences starting 03/09/2022 until 04/08/2023 [facility] Work Phone: Comment on above: 1 Occurrences starting 03/09/2022 until 04/08/2023 End: 08-30-2024 LUNG DIFFUSION CAPACITY (DLCO) LUNG DIFFUSION CAPACITY (DLCO) PFT Routine Persistent atrial fibrillation (HCC) 1 Occurrences starting 08/01/2023 until 08/30/2024 [facility] Work Phone: Comment on above: 1 Occurrences starting 08/01/2023 until 08/30/2024 End: 04-07-2026 LUNG DIFFUSION CAPACITY (DLCO) LUNG DIFFUSION CAPACITY (DLCO) PFT Routine Pulmonary hypertension (HCC) 1 Occurrences starting 03/07/2025 until 04/07/2026 [facility] Comment on above: 1 Occurrences starting 03/07/2025 until 04/07/2026 End: 08-30-2024 LUNG VOLUMES LUNG VOLUMES PFT Routine Persistent atrial fibrillation (HCC) 1 Occurrences starting 08/01/2023 until 08/30/2024 [facility] Work Phone: Comment on above: 1 Occurrences starting 08/01/2023 until 08/30/2024 End: 04-07-2026 LUNG VOLUMES LUNG VOLUMES PFT Routine Pulmonary hypertension (HCC) 1 Occurrences starting 03/07/2025 until 04/07/2026 [facility] Comment on above: 1 Occurrences starting 03/07/2025 until 04/07/2026 End: 11-04-2023 Mri abdomen w/o & w/contrast material MRI ABDOMEN WO/W IVCON Radiology Routine Intra-abdominal and pelvic swelling, mass and lump, unspecified site 1 Occurrences starting 10/05/2022 until 11/04/2023 [facility] Work Phone: Comment on above: 1 Occurrences starting 10/05/2022 until 11/04/2023 End: 01-20-2024 Mri abdomen w/o & w/contrast material MRI ABDOMEN WO/W IVCON Radiology Routine Malignant neoplasm of right kidney, except renal pelvis (HCC) 1 Occurrences starting 12/21/2022 until 01/20/2024 [facility] Work Phone: Comment on above: 1 Occurrences starting 12/21/2022 until 01/20/2024 Mri abdomen w/o & w/contrast material MRI ABDOMEN WO/W IVCON Radiology Routine Malignant neoplasm of right kidney, except renal pelvis (HCC) 06/14/2023 11:24 AM EDT [facility] Work Phone: Patient Education ED Thrombophle bitis, Superficial [facility] Work Phone: Patient referral [facility] Work Phone: End: 05-31-2023 Polysomnogram POLYSOMNOGRAM (PSG) Procedures Routine Pulmonary hypertension (HCC) 1 Occurrences starting 05/31/2022 until 05/31/2023 [facility] Work Phone: Comment on above: 1 Occurrences starting 05/31/2022 until 05/31/2023 End: 02-28-2024 Polysomnogram POLYSOMNOGRAM (PSG) Procedures Routine EZIO (obstructive sleep apnea) 1 Occurrences starting 02/28/2023 until 02/28/2024 [facility] Work Phone: Comment on above: 1 Occurrences starting 02/28/2023 until 02/28/2024 Renal biopsy prq trocar/needle RENAL BX. PERCUTANEOUS Procedures Routine Renal cell carcinoma of right kidney (HCC) Ordered: 11/23/2022 [facility] Work Phone: Comment on above: Ordered: 11/23/2022 End: 06-30-2023 SIX MINUTE WALK SIX MINUTE WALK PFT Routine Pulmonary hypertension (HCC) 1 Occurrences starting 05/31/2022 until 06/30/2023 [facility] Work Phone: Comment on above: 1 Occurrences starting 05/31/2022 until 06/30/2023 End: 04-06-2026 SIX MINUTE WALK SIX MINUTE WALK PFT Routine Pulmonary hypertension (HCC) 1 Occurrences starting 03/07/2025 until 04/06/2026 [facility] Comment on above: 1 Occurrences starting 03/07/2025 until 04/06/2026 End: 06-30-2023 SPIROMETRY - BASELINE AND POST DILATOR SPIROMETRY - BASELINE AND POST DILATOR PFT Routine Pulmonary hypertension (HCC) 1 Occurrences starting 05/31/2022 until 06/30/2023 [facility] Work Phone: Comment on above: 1 Occurrences starting 05/31/2022 until 06/30/2023 SPIROMETRY - BASELIN E AND POST DILATOR SPIROMETRY - BASELINE AND POST DILATOR PFT Routine Pulmonary hypertension (HCC) 10/04/2022 9:38 AM EST [facility] Work Phone: End: 08-30-2024 SPIROMETRY BASELINE ONLY SPIROMETRY BASELINE ONLY PFT Routine Persistent atrial fibrillation (HCC) 1 Occurrences starting 08/01/2023 until 08/30/2024 [facility] Work Phone: Comment on above: 1 Occurrences starting 08/01/2023 until 08/30/2024 End: 04-07-2026 SPIROMETRY WITH DILATOR IF OBSTRUCTED SPIROMETRY WITH DILATOR IF OBSTRUCTED PFT Routine Pulmonary hypertension (HCC) 1 Occurrences starting 03/07/2025 until 04/07/2026 [facility] Comment on above: 1 Occurrences starting 03/07/2025 until 04/07/2026 SURGICAL PATHOLOGY SURGICAL PATH OLOGY Lab Routine 12/13/2022 9:03 AM EDT [facility] Work Phone: End: 10-24-2025 XR Chest PA and Lateral XR CHEST 2V FRONTAL/LAT Radiology STAT Acute cough URI, acute 1 Occurrences starting 09/24/2024 until 10/24/2025 [facility] Work Phone: Comment on above: 1 Occurrences starting 09/24/2024 until 10/24/2025 [facility] [place] [facility] Immunizations Immunization Date Immunization Notes Care Provider Ishaan [facility] 06-13-2024 Seasonal trivalent influenza vaccine, adjuvanted, preservative free Jesenia Arzate SEASONAL CLERK.ELECTRIC ARC WELDER Work Phone: [facility] 06-13-2024 influenza virus vacc ine, unspecified formulation Card [facility] 10-11-2023 zoster vaccine recombinant Jesenia Arzate SEASONAL CLERK.ELECTRIC ARC WELDER Work Phone: [facility] 06-28-2023 zoster vaccine recombinant Jesenia Arzate SEASONAL CLERK.ELECTRIC ARC WELDER Work Phone: [facility] 06-08-2023 influenza (aIIV4) vaccine, age 65+ yr, quadrivalent, PF (FLUAD QUAD) Niharika Frias MD Work Phone: [facility] 06-08-2023 influenza, high dose seasonal, preservative-free; Translations: [Fluad Quadrivalent PF ] SMITHA RAY DO [facility] 06-08-2023 Pneumococcal conjuga te PCV20, polysaccharide [id number] conjugate, adjuvant, PF; Translations: [Prevnar 20] SMITHA RAY DO [facility] 06-08-2023 influenza virus vacc ine, unspecified formulation Rem [facility] 08-18-2021 SARS-CoV-2 (COVID-19 ) mRNA-1273 vaccine SMITHA RAY DO [facility] 11-06-2020 SARS-CoV-2 (COVID-19 ) Ad26 vaccine, recombinant ARIANA HINTON SEASONAL CLERK-ELECTRIC ARC WELDER [facility] Comment on above: Result Comment: 2020: [id number] 07-24-2019 influenza, injectabl e, quadrivalent, preservative free; Translations: [Fluarix PF Quadrivalent ] ARIANA HINTON SEASONAL CLERK-ELECTRIC ARC WELDER [facility] 07-24-2019 influenza virus vacc ine, unspecified formulation Niharika Frias MD Work Phone: [facility] 05-26-2018 influenza virus vacc ine, unspecified formulation ARIANA HINTON SEASONAL CLERK-ELECTRIC ARC WELDER [facility] 05-26-2018 influenza, high dose seasonal, preservative-free Rossy Richardson DO Work Phone: [facility] 06-29-2016 influenza virus vacc ine, unspecified formulation ARIANA HINTON SEASONAL CLERK-ELECTRIC ARC WELDER [facility] 06-29-2016 influenza, seasonal, injectable Rossy Richardson DO Work Phone: [facility] 05-10-2016 influenza, injectabl e, quadrivalent, preservative free Rossy Richardson DO Work Phone: [facility] 08-15-2013 influenza virus vacc ine, unspecified formulation ARIANAGOKUL HINTON SEASONAL CLERK-ELECTRIC ARC WELDER [facility] 08-15-2013 influenza, seasonal, injectable Rossy Richardson DO Work Phone: [facility] 05-28-1985 diphtheria and tetan us toxoids, adsorbed for pediatric use Rossy Richardson DO Work Phone: [facility] Payers Date Payer Category Payer Self-pay 2022 Unknown [id number] 2021 Private Health Insurance MMO MED ICARE SUPPLEMENT [id number] 2021 Medicare [id number] 2017 Medicare MEDICARE MEDICAR E A AND B [id number] 2017-Present [phone] [address] [address] [place] [address] Medicare [id number] 2017 Medicare [id number] 2017 Unknown MMO MMO MEDICARE SUPPLEMENT [id number] 2017-Present [phone] [address] [place] [address] Indemnity [id number] 2017 Unknown [id number] 2017 Medicare [id number] 1950 Unknown [id number] 1950 Unknown [id number] 627 1952 Unknown [id number] 627 1950 Unknown [id number] 627 1950 Unknown [id number] 627 Medicare 0 [id number] Private Health Insurance [employer]ERC[employer] L [id number] Unknown [facility] [id number] Unknown [id number] Unknown [id number] 462 Unknown [id number] 462 Unknown [id number] 462 Unknown [id number] 462 Social History Date Type Detail Facility Start: 05-23-2019 End: 05-18-2022 Tobacco smoking status Never smoked tobacco (finding) [facility] Start: 1950 Sex Assigned At Male A [facility] Start: 01-29-2022 End: 05-09-2025 Alcohol intake Current non-drinker of alcohol (finding) [facility] Start: 07-23-2020 End: 05-24-2022 History SDOH Financial 5 [facility] Start: 07-23-2020 End: 05-24-2022 History SDOH Food Worry 1 [facility] Start: 07-23-2020 End: 05-24-2022 History SDOH Transport Med 2 [facility] Start: 01-19-2022 End: 07-29-2022 Exposure to SARS-CoV-2 (event) Not sure [facility] Start: 01-24-2022 End: 05-14-2022 Exposure to SARS-CoV-2 (event) Unable to assess [facility] Start: 08-24-2017 End: 05-18-2022 Tobacco use and exposure Smokeless tobacco non-user [facility] Start: 06-05-2022 End: 08-18-2023 Tobacco smoking status NHIS Unknown if ever smoked [facility] Start: 02-28-2023 End: 02-04-2025 History of Social function [facility] Work Phone: Start: 02-28-2023 End: 02-04-2025 Tobacco use panel [facility] Work Phone: Start: 07-30-2012 How hard is it for y ou to pay for the very basics like food, housing, medical care, and heating Not hard at all [facility] Work Phone: (I/We) worried gregory er (my/our) food would run out before (I/we) got money to buy more. Never true [facility] Work Phone: In the past 12 month s, was there a time when you were not able to pay the mortgage or rent on time? No [facility] Work Phone: Start: 04-15-2020 Gender identity Identifies as male gender (finding) [facility] Start: 02-09-2021 Sexual orientation Heterosexual (karley stark) [facility] Medical Equipment Procedure Code Equipment Code Equipment Origin al Text Equipment Identifier Dates See Instructions , Dispense glucose test strips, #100, UAD daily to test blood sugar, # 100 EA, 3 Refill(s), Pharmacy: [id number], Diabetes, 178, cm, 11/19/20 10:01:00 EDT, Height, 120.6, kg, 11/19/20 10:01:00 EDT, Dosing Weight Start: 11-19-2020 See Instructions , Dispense UltraFine lancets, #100, use as directed daily to test blood sugar, # 1 EA, 0 Refill(s), Pharmacy: [id number], Diabetes, 178, cm, 11/19/20 10:01:00 EDT, Height, 120.6, kg, 11/19/20 10:01:00 EDT, Dosing Weight Start: 11-19-2020 See Instructions , Dispense glucose test strips, #100, UAD daily to test blood sugar, # 100 EA, 3 Refill(s), [id number], Diabetes, 178, cm, 11/19/20 10:01:00 EDT, Height, 120.6, kg, 11/19/20 10:01:00 EDT, Dosing Weight Start: 11-19-2020 See Instructions , Dispense UltraFine lancets, #100, use as directed daily to test blood sugar, # 1 EA, 0 Refill(s), [id number], Diabetes, 178, cm, 11/19/20 10:01:00 EDT, Height, 120.6, kg, 11/19/20 10:01:00 EDT, Dosing Weight Start: 11-19-2020 See Instructions , Dispense glucose test strips, #100, UAD daily to test blood sugar, # 100 EA, 3 Refill(s), [id number], Diabetes, 178, cm, 11/19/20 10:01:00 EDT, Height, 120.6, kg, 11/19/20 10:01:00 EDT, Dosing Weight Start: 11-19-2020 See Instructions , Dispense UltraFine lancets, #100, use as directed daily to test blood sugar, # 1 EA, 0 Refill(s), [id number], Diabetes, 178, cm, 11/19/20 10:01:00 EDT, Height, 120.6, kg, 11/19/20 10:01:00 EDT, Dosing Weight Start: 11-19-2020 System Option 6. 5fr 0-32mm 5fr 70cm Embolic Protection Filter Kit - [id number] Start: 05-20-2022 Coil Concerto Latticefx 2mm Helical Nylon Polypropylene 4cm Embolization - [id number] Start: 05-25-2022 Syr Embozene 2ml Med 250um, Color-Advanced Microspheres - [id number] Start: 05-25-2022 See Instructions , Dispense glucose test strips, #100, UAD daily to test blood sugar; dx E11.9, # 100 EA, 3 Refill(s), [id number], Diabetes, 180, cm, 01/27/22 11:05:00 EDT, Height, 116.8, kg, 05/12/22 16:44:00 EDT, Dosing Weight Start: 06-15-2022 See Instructions , Dispense UltraFine lancets, #100, use as directed daily to test blood sugar; dx E11.9, # 1 EA, 0 Refill(s), [id number], Diabetes, 180, cm, 01/27/22 11:05:00 EDT, Height, 116.8, kg, 05/12/22 16:44:00 EDT, Dosing Weight Start: 06-15-2022 See Instructions , Dispense glucose test strips, #100, UAD daily to test blood sugar; dx E11.9, # 100 EA, 3 Refill(s), [id number], Diabetes, 180, cm, 01/27/22 11:05:00 EDT, Height, 116.8, kg, 05/12/22 16:44:00 EDT, Dosing Weight Start: 06-15-2022 See Instructions , Dispense UltraFine lancets, #100, use as directed daily to test blood sugar; dx E11.9, # 1 EA, 0 Refill(s), Pharmacy: [id number], Diabetes, 180, cm, 01/27/22 11:05:00 EDT, Height, 116.8, kg, 05/12/22 16:44:00 EDT, Dosing Weight Start: 06-15-2022 [facility]-07/22/2020 [id number] Sta rt: 07-22-2020 Comment on above: Description: Bridestory L331 Accolade MRI EL pacemkaer RA Lead BSC 7841 Ingevity+IS-1 [id number] 07/22/2020 RV Lead [facility] 7842 Ingevity+IS-1 [id number] 07/22/2020 1.5T or 3T Info by [facility] MRI as of 12/23/2022 See Instructions , Dispense glucose test strips, #100, UAD daily to test blood sugar; dx E11.9, # 100 EA, 3 Refill(s), [id number], Diabetes, 180, cm, 01/27/22 11:05:00 EDT, Height, 116.8, kg, 05/12/22 16:44:00 EDT, Dosing Weight Start: 06-15-2022 See Instructions , Dispense UltraFine lancets, #100, use as directed daily to test blood sugar; dx E11.9, # 1 EA, 0 Refill(s), [id number], Diabetes, 180, cm, 01/27/22 11:05:00 EDT, Height, 116.8, kg, 05/12/22 16:44:00 EDT, Dosing Weight Start: 06-15-2022 See Instructions , Dispense glucose test strips, #100, UAD daily to test blood sugar; dx E11.9, # 100 EA, 3 Refill(s), [id number], Diabetes, 180, cm, 01/27/22 11:05:00 EDT, Height, 116.8, kg, 05/12/22 16:44:00 EDT, Dosing Weight Start: 06-15-2022 See Instructions , Dispense UltraFine lancets, #100, use as directed daily to test blood sugar; dx E11.9, # 1 EA, 0 Refill(s), [id number], Diabetes, 180, cm, 01/27/22 11:05:00 EDT, Height, 116.8, kg, 05/12/22 16:44:00 EDT, Dosing Weight Start: 06-15-2022 System Option 6. 5fr 0-32mm 5fr 70cm Embolic Protection Filter Kit - [id number] Start: 08-09-2023 See Instructions , Dispense glucose test strips, #100, UAD daily to test blood sugar; dx E11.9, # 100 EA, 3 Refill(s), [id number], Diabetes, 180, cm, 01/27/22 11:05:00 EDT, Height, 116.8, kg, 05/12/22 16:44:00 EDT, Dosing Weight Start: 06-15-2022 See Instructions , Dispense UltraFine lancets, #100, use as directed daily to test blood sugar; dx E11.9, # 1 EA, 0 Refill(s), Pharmacy: [id number], Diabetes, 180, cm, 01/27/22 11:05:00 EDT, Height, 116.8, kg, 05/12/22 16:44:00 EDT, Dosing Weight Start: 06-15-2022 See Instructions , Dispense glucose test strips, #100, UAD daily to test blood sugar; dx E11.9, # 100 EA, 3 Refill(s), Pharmacy: [facility], Diabetes, 180, cm, 01/27/22 11:05:00 EDT, Height, 116.8, kg, 05/12/22 16:44:00 EDT, Dosing Weight Start: 06-15-2022 See Instructions , Dispense UltraFine lancets, #100, use as directed daily to test blood sugar; dx E11.9, # 1 EA, 0 Refill(s), [facility], Diabetes, 180, cm, 01/27/22 11:05:00 EDT, Height, 116.8, kg, 05/12/22 16:44:00 EDT, Dosing Weight Start: 06-15-2022 Coil Concerto Latticefx 2mm Helical Nylon Polypropylene 4cm Embolization - [id number] Start: 05-25-2022 Coil Concerto Latticefx 2mm Helical Nylon Polypropylene 4cm Embolization - [id number] Start: 05-25-2022 [id number] Ingevity+Is-1 [id number] Start: 07-22-2020 [id number] Ingevity+Is-1 [id number] Start: 07-22-2020 Goals Date Patient Goal Desired Activity /State Personal health goal Functional Status Date Assessment Result Facility 02-04-2025 Are you deaf, or do you have serious difficulty hearing No 02/04/2025 4:10 PM Kayla Wilson RN No [facility] 02-04-2025 Are you blind, or do you have serious difficulty seeing, even when wearing glasses No 02/04/2025 4:10 PM Kayla Wilson, JOANN No [facility] 02-04-2025 Do you have serious difficulty walking or climbing stairs No 02/04/2025 4:10 PM Kayla Wilson, JOANN No [facility] 02-04-2025 Do you have difficul ty dressing or bathing No 02/04/2025 4:10 PM Kayla Wilson, JOANN No [facility] 02-04-2025 Because of a physica l, mental, or emotional condition, do you have difficulty doing errands alone such as visiting a physician's office or shopping No 02/04/2025 4:10 PM Kayla Wilson RN No [facility] 06-29-2022 Are you deaf, or do you have serious difficulty hearing No 06/29/2022 4:46 PM Annette Bower RN No [facility] 06-29-2022 Are you blind, or do you have serious difficulty seeing, even when wearing glasses No 06/29/2022 4:46 PM Annette Bower, JOANN No [facility] 06-29-2022 Do you have serious difficulty walking or climbing stairs Yes 06/29/2022 4:46 PM Annette Bower, JOANN Yes [facility] 06-29-2022 Do you have difficul ty dressing or bathing Yes 06/29/2022 4:46 PM Annette Bower, JOANN Yes [facility] 06-29-2022 Because of a physica l, mental, or emotional condition, do you have difficulty doing errands alone such as visiting a physician's office or shopping Yes 06/29/2022 4:46 PM Annette Bower, RN Yes [facility] Mental Status Date Assessment Result Facility 02-04-2025 Because of a physica l, mental, or emotional condition, do you have serious difficulty concentrating, remembering, or making decisions No 02/04/2025 4:10 PM EDT Kayla Gerber, RN No [facility] 06-29-2022 Because of a physica l, mental, or emotional condition, do you have serious difficulty concentrating, remembering, or making decisions Yes 06/29/2022 4:46 PM EDT Annette Damon, RN Yes [facility] 06-05-2022 Cognitive function Level Of Cons ciousness Awake;Alert [facility] Work Phone: Clinical Notes 01-29-2022 to 06-07-2025 Telephone Encounter - Parisa Eldridge RN - 05/09/2025 1:36 PM EDTTelephone Encounter - Parisa Eldridge RN - 05/09/2025 1:36 PM EDTTelephone Encounter - Parisa Eldridge RN - 05/09/2025 1:07 PM EDT Note Date & Type Note Facility 06-07-2025 Note HNO ID: [id number] Author: ARLETH MURDOCK MD Service: ? Author Type: Respiratory Therapist Type: Procedures Filed: 06/07/2025 13:34 Note Text: RESPIRATORY THERAPY SIX MINUTE WALK TEST OXIMETRY REPORT Six Minute Walk Test for This Encounter Oxygen Device Liters FIO2 SpO2% HR Activity Feet Speed (MPH) R/A 98 65 Resting R/A 98 109 Six Minute Walk 1306 2.5 R/A 98 69 Recovery General Information Height Weight Pulse Oximetry Site Pre Blood Pressure Post Recovery Blood Pressure 175.3 cm (5' 9.02) 113 kg (249 lb 1.9 oz) Forehead 140/79 140/81 _ Distance Walked (meters) Distance Walked (feet) Male Predicted Walk Distance (feet) Male Lower Limit of Normal (feet) Male % Predicted Total Duration Of The Stops (seconds) 398.07 1306 1501.64 999.64 87 -- _ Lowest SpO2 During 6 Minute Walk Pre-Indira Dyspnea Rating Pre-Indira Fatigue Rating Post Indira Dyspnea Rating Post Indira Fatigue Rating Walking Assistance/O2 Supply Carrier 94 % 0 1 0 1 None Six Minute Walk Trend (Previous Encounters) None _ Comments: Patient walked in room air at a good pace without stopping while maintaining his pulse ox greater that 94%. SIGNATURE: Jacinda Ramsay CRT PATIENT NAME: Alisa Hagan DATE: June 07, 2025 TIME: 11:51 AM The patient completed the six minute walk test with No stops. . The patient required Room Air to complete the test. The distance the patient walked in six minutes is within the predicted normal range. This is the first time patient takes the six minute walk test. The patient perceived their dyspnea during the six minute walk test to be 0-Nothing at all on the modified Indira scale. The patient perceived their fatigue during the six minute walk test to be 1-Very slight on the modified Indira scale. I have reviewed the findings and made appropriate revisions as needed. Arleth Murdock MD June 07, 2025 1:34 PM [facility] 06-03-2025 Note HNO ID: [id number] Author: DEENA WAGGONER MD Service: ? Author Type: Physician Type: Progress Notes Filed: 06/09/2025 20:02 Note Text: Alisa Hagan 1950 June 03, 2025 HPI: Alisa Hagan is a 74 year old male who presents as a hospital follow up. Mr. Hagan is a 74 year old male who presented to ER on 06/16/22 for dizziness and difficulty urinating. Of note he was recently admitted with subcapsular hematoma and retroperitoneal bleeding. Had 2 admissions for the same first 1 05/24/2022 to 06/04/2022, total of 11 days, the second 1 was from 06/05/2022 to 06/09/2022 for total duration of 4 days. He has a known history of right renal mass for which she was supposed to undergo robotic right laparoscopic nephrectomy on 06/03/2022. CT abdomen done during the first admission showed large right subcapsular hematoma with area of extravasation from right renal mass with hemorrhage extending inferiorly through the right retroperitoneum. His INR was 1.2 at presentation transferred to MICU for hemorrhagic shock. Had a hemoglobin drop from 13.4-7.6. Underwent IR embolization on 05/25/2022. Aspirin and Coumadin were restarted after consultation with urologist. He also underwent IVC placement on 05/20/2022 by vascular considering his history of multiple unprovoked DVTs and PEs. His first episode was about 25 years back treated with therapeutic anticoagulation and taken off anticoagulation after 6 months. He then had a recurrence in 2009 after being off of coumadin for a month per Dr. Zabala's notes. Urology was on consult during his second admission. His aspirin and warfarin was stopped at the time of second discharge. Per IR notes from 06/16/22: Right common femoral vein was accessed. Initial femoral venography showed occlusive thrombus of the infrarenal IVC and proximal right common femoral vein. Thrombectomy of right common femoral vein and IVC performed without incident. Bilateral pulmonary angiogram performed, showing filling defects in segmental pulmonary arteries bilaterally and central filling defect in the left main pulmonary artery. Left pulmonary artery mechanical thrombectomy performed without incident. Pre-thrombectomy pulmonary artery pressure was measured as a mean of 34mmHg. Post thrombectomy pulmonary artery pressure measured a mean of 33mmHg. On review of chart, pt was seen by [facility] - Dr. Zabala in . Workup at that time was negative for hypercoaguable state EXCEPT for equivocal IgM cardiolipin Abs. 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 He did not have PAI1 testing. Today he is resting in bed. He is currently on hep gtt. He was having his INR checked with PCP. Says that he was doing well on Coumadin and very stable INR. Says the pain in the R flank started in December and was bad enough that it brought him to his knees. Saw outside urology and ultimately says he was not happy with care so he switched. Pt is concerned this morning that urology resident told him he was not going back on blood thinners. In Afib on monitor. No active bleeding. Retrieval of IVC in 08/09/23. Having pain in the RLE. Rolled a lawnmower over it end of April. Did not have it checked out. police magistrate rolled on him while he was sitting on it. Has a very hard lump on the inner side of the RLE just below the knee with erythema on top of it. Bruising noted from the medial knee to the ankle. Some healing with yellow d/c. Was having issues with his INR. Got clots x 3 while trying to regulate it. Got a superficial clot (estephania) LLE; next one was swelling x 2 but never did US to confirm. Has been on Eliquis since October 2023. Not sleeping well. Has to get up to bathroom. Normally 1-2x/night. Sleeps midnight to 3:30-5am. Interval history: Today he is here for follow up. Doing well on Eliquis. Had cataract surgery on the R. Made it no better so will not be doing the L eye. Saw Cardio. Wants him to start a new medication (Entresto). Needs to see nephro first. Pacemaker doing well. May need defibrillator next year. Pt complains about SOB. He feel dizziness on standing and walking around. No falls. Last episode of dizziness happened at work. He was standing for several hours while working on work bench. Pt does not remember locking the knees when rising from the seated position during the episode of dizziness. Pt eats twice a day as he is trying to lose weight. Drinks 24 ounces glass of water 2 to 3 times a day. Cannot donate blood because he is on blood thinners. Pt says that the pacemaker battery life is shorter due to increased use. He is not on new medication and supplements. Painful to walk if using the muscles. Not otherwise any issues. No bleeding in other locations. Fatigued. Keeps pushing himself. Sees Dr. Ray PAST MEDICAL HISTORY Diagnosis Date A-fib (HCC) 07/08/2017 (more content not included)... [facility] 05-09-2025 Telephone encounter Note Routed Nephrology referral via [employer]/fax to Dr. Hines's office. Parisa Eldridge RN [facility] 05-09-2025 Miscellaneous Notes Routed Nephrology referral via [employer]/fax to Dr. Hines's office. Parisa Eldridge RN Parisa thank you, would you be so kind to print that order and ask our staff to fax the referral also to Dr. Hines's office Dali Dillon APRN.CHERIE Called Alisa Hagan to relay that he was referred to Project Production Engineer Dr. Rosenthal by Dr. Sanchez in March. I provided Dr. Hines's office number and encouraged him to call for appt since he has not heard from them yet. He is agreeable to call. I let him know that Dali is asking for Nephrology guidance about starting a medication called Entresto. He voiced understanding. Parisa Eldridge, RN Correct , I now see a referral from March in his chart can someone please help with this referral. I need to see if they are ok with me putting him on Entresto Dali Dillon APRN.CHERIE Spoke to Alisa Hagan and he does not have a Project Production Engineer. States everyone keeps saying they are going to refer him to one but he never gets a call to schedule. Janie Taarngo LPN Absolutely Dr. Aung Blandon can you see who patient uses for nephrology( I know he sees Dr. Sanchez for urology) I just want to touch base. Before I initiate Entresto his last renal panel shows BUN/creatinine 3/2.02 with GFR of 34 Dali Dillon APRN.ELECTRIC ARC WELDER Dali, you are seeing this gentleman with Dr. Jaeger. 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 Apparently, recent imaging and evaluation were benign. Can you look into getting him on GDMT? If his EF fails to improve after 3 months of optimal therapy he should get a SPICE ROOM WORKER-D. ThanksAdal Hammer. documented in this encounter [facility] 05-09-2025 Telephone encounter Note Parisa thank you, would you be so kind to print that order and ask our staff to fax the referral also to Dr. Hines's office Dali Dillon APRN.ELECTRIC ARC WELDER [facility] 05-09-2025 Telephone encounter Note Called Alisa Hagan to relay that he was referred to Project Production Engineer Dr. Rosenthal by Dr. Sanchez in March. I provided Dr. Hines's office number and encouraged him to call for appt since he has not heard from them yet. He is agreeable to call. I let him know that Dali is asking for Nephrology guidance about starting a medication called Entresto. He voiced understanding. Parisa Eldridge, RN [facility] 05-09-2025 Telephone encounter Note Correct , I now see a referral from March in his chart can someone please help with this referral. I need to see if they are ok with me putting him on Entresto Dali Dillon APRN.ELECTRIC ARC WELDER [facility] 05-09-2025 Telephone encounter Note Spoke to Alisa Hagan and he does not have a Project Production Engineer. States everyone keeps saying they are going to refer him to one but he never gets a call to schedule. Janie Tarango LPN [facility] 05-09-2025 Telephone encounter Note Absolutely Dr. Aung Blandon can you see who patient uses for nephrology( I know he sees Dr. Sanchez for urology) I just want to touch base. Before I initiate Entresto his last renal panel shows BUN/creatinine 3.02 with GFR of 34 Dali Dillon APRN.ELECTRIC ARC WELDER [facility] 05-09-2025 Telephone encounter Note Dali, you are seeing this gentleman with Dr. Jaeger. 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 Apparently, recent imaging and evaluation were benign. Can you look into getting him on GDMT? If his EF fails to improve after 3 months of optimal therapy he should get a SPICE ROOM WORKER-D. Thanks. Hammer. [facility] 05-09-2025 Note HNO ID: [id number] Author: MIRIAN HORAN MD Service: ? Author Type: Physician Type: Progress Notes Filed: 05/09/2025 10:21 Note Text: Heart and Vascular [facility] SECTION OF CARDIAC PACING and ELECTROPHYSIOLOGY OUTPATIENT VISIT DATE May 09, 2025 OUTPATIENT VISIT TYPE ESTABLISHED PRIMARY CARE PHYSICIAN: [place] [address] HISTORY OF PRESENT ILLNESS: 74-year-old male referred by Dr. Jain for bradycardia. Mr. Hagan has a history of coronary disease, had PCI/stent in 2019, pulmonary hypertension, at least a five-year history of persistent atrial fibrillation managed with rate control and anticoagulation. He never had a cardioversion. In addition he has history of obesity with BMI of 38, as well as left bundle-branch block. He also suffered pulmonary embolism at least 5 times, and is now on chronic anticoagulation. In fact several years ago he received an IVC filter that was subsequently removed. A recent event monitor demonstrated pauses prompting this referral. Mr. Hagan reports fatigue and exertional dyspnea. He denies chest pain, palpitation, or syncope. On occasion he does feel dizzy. He is also under significant stress due to his 's illness (recently diagnosed malignancy). Interval history: Mr. Hagan presents for follow-up. He continues experiencing fatigue and low energy, exertional dyspnea, and episodes of dizziness. He wore a 30 day event monitor demonstrating ongoing atrial fibrillation with most controlled ventricular rate, but pauses up to 3.8 seconds. He has left bundle-branch block, and his LVEF has been preserved. Interval history: Mr. Hagan presents for follow-up. After some initial hesitation he received a dual-chamber pacemaker and underwent DC cardioversion a few weeks later. Now he presents for follow-up. He reports feeling reasonably well. He denies palpitation, dizziness, and reports some improvement in his dyspnea and fatigue. He remains on oral anticoagulation with warfarin. He does report occasional epistaxis.ECG today shows sinus rhythm with left bundle branch block that was noted before. Interval history: In spring 2021 Mr. Hagan developed sustained atrial fibrillation, was supposed to undergo repeat cardioversion, had WENDY in December 2021 that demonstrated left atrial appendage thrombus. WENDY a month later showed thrombus resolution and sinus rhythm was restored. About a month later atrial fibrillation recurred. Shortly thereafter he developed renal cell malignancy, underwent nephrectomy, had bilateral pulmonary emboli, had IVC filter placed. He is suspected to have hypercoagulable state. Today he presents for follow-up. He is recovering after prolonged hospitalization, still short of breath and tired. He is ECG shows atrial fibrillation with ventricular rate of 95 bpm. The most recent pacemaker interrogation demonstrated atrial fibrillation for at least 6 months. He is on Coumadin now. In August 2022 he underwent WENDY guided DC cardioversion with atrial fibrillation recurrence less than a day later. Interval history: Mr. Hagan presents for an office visit. He reports ongoing fatigue, denies palpitation, chest comfort, dizziness. Remains on warfarin with no obvious bleeding complications. He is a scheduled for IVC filter removal in a few weeks. His ECG shows atrial fibrillation with ventricular rate of 80 bpm and LBBB. Pacemaker interrogations continue to show atrial fibrillation with most controlled ventricular rates, stable lead parameters, battery longevity of 9 years. He recently switched his metoprolol from morning dosing to the evening in hopes to decrease fatigue, but did not notice much difference. He is inquiring without medications can be used instead of metoprolol. He is also inquiring about catheter ablation for atrial fibrillation. DLCO on PFT in 2017 was mildly reduced. Echo in July 21 showed EF of 43% which is his baseline, mild LVH with IVS of 1.3, moderate left atrial enlargement. Interval history: Mr. Hagan presents for follow-up. He was admitted with heart failure in January 2025, echo showed EF 30%, LHC demonstrated severe diffuse disease in the mid RCA and nonobstructive disease in the left system. He is receiving beta-lilly. Entresto was not started because of renal dysfunction and suspected recurrence of renal malignancy. Apparently, recent imaging showed no recurrence. He reports feeling tired, denies palpitation, chest pain, or dizziness. He is able to walk up 1 flight of stairs comfortably and 2 flights with some effort. ECG shows rate controlled atrial fibrillation with LBBB with QRS of 170 ms. Pacemaker interrogation from February 2025 showed normal function, ongoing atrial fibrillation, some episodes of RVR (beta-lilly has been increased since). PAST MEDICAL HIST (more content not included)... [facility] 05-09-2025 History of Presen t illness Narrative Images from the original note were not included. Heart and Vascular [facility] SECTION OF CARDIAC PACING and ELECTROPHYSIOLOGY OUTPATIENT VISIT DATE May 09, 2025 OUTPATIENT VISIT TYPE ESTABLISHED PRIMARY CARE PHYSICIAN: Smitha Ray IV [address] [place] [address] HISTORY OF PRESENT ILLNESS: 74-year-old male referred by Dr. Jain for bradycardia. Mr. Hagan has a history of coronary disease, had PCI/stent in 2019, pulmonary hypertension, at least a five-year history of persistent atrial fibrillation managed with rate control and anticoagulation. He never had a cardioversion. In addition he has history of obesity with BMI of 38, as well as left bundle-branch block. He also suffered pulmonary embolism at least 5 times, and is now on chronic anticoagulation. In fact several years ago he received an IVC filter that was subsequently removed. A recent event monitor demonstrated pauses prompting this referral. Mr. Hagan reports fatigue and exertional dyspnea. He denies chest pain, palpitation, or syncope. On occasion he does feel dizzy. He is also under significant stress due to his 's illness (recently diagnosed malignancy). Interval history: Mr. Hagan presents for follow-up. He continues experiencing fatigue and low energy, exertional dyspnea, and episodes of dizziness. He wore a 30 day event monitor demonstrating ongoing atrial fibrillation with most controlled ventricular rate, but pauses up to 3.8 seconds. He has left bundle-branch block, and his LVEF has been preserved. Interval history: Mr. Hagan presents for follow-up. After some initial hesitation he received a dual-chamber pacemaker and underwent DC cardioversion a few weeks later. Now he presents for follow-up. He reports feeling reasonably well. He denies palpitation, dizziness, and reports some improvement in his dyspnea and fatigue. He remains on oral anticoagulation with warfarin. He does report occasional epistaxis.ECG today shows sinus rhythm with left bundle branch block that was noted before. Interval history: In spring 2021 Mr. Hagan developed sustained atrial fibrillation, was supposed to undergo repeat cardioversion, had WENDY in December 2021 that demonstrated left atrial appendage thrombus. WENDY a month later showed thrombus resolution and sinus rhythm was restored. About a month later atrial fibrillation recurred. Shortly thereafter he developed renal cell malignancy, underwent nephrectomy, had bilateral pulmonary emboli, had IVC filter placed. He is suspected to have hypercoagulable state. Today he presents for follow-up. He is recovering after prolonged hospitalization, still short of breath and tired. He is ECG shows atrial fibrillation with ventricular rate of 95 bpm. The most recent pacemaker interrogation demonstrated atrial fibrillation for at least 6 months. He is on Coumadin now. In August 2022 he underwent WENDY guided DC cardioversion with atrial fibrillation recurrence less than a day later. Interval history: Mr. Hagan presents for an office visit. He reports ongoing fatigue, denies palpitation, chest comfort, dizziness. Remains on warfarin with no obvious bleeding complications. He is a scheduled for IVC filter removal in a few weeks. His ECG shows atrial fibrillation with ventricular rate of 80 bpm and LBBB. Pacemaker interrogations continue to show atrial fibrillation with most controlled ventricular rates, stable lead parameters, battery longevity of 9 years. He recently switched his metoprolol from morning dosing to the evening in hopes to decrease fatigue, but did not notice much difference. He is inquiring without medications can be used instead of metoprolol. He is also inquiring about catheter ablation for atrial fibrillation. DLCO on PFT in 2017 was mildly reduced. Echo in July 21 showed EF of 43% which is his baseline, mild LVH with IVS of 1.3, moderate left atrial enlargement. Interval history: Mr. Hagan presents for follow-up. He was admitted with heart failure in January 2025, echo showed EF 30%, LHC demonstrated severe diffuse disease in the mid RCA and nonobstructive disease in the left system. He is receiving beta-lilly. Entresto was not started because of renal dysfunction and suspected recurrence of renal malignancy. Apparently, recent imaging showed no recurrence. He reports feeling tired, denies palpitation, chest pain, or dizziness. He is able to walk up 1 flight of stairs comfortably and 2 flights with some effort. ECG shows rate controlled atrial fibrillation with LBBB with QRS of 170 ms. Pacemaker interrogation from February 2025 showed normal function, ongoing atrial fibrillation, some episodes of RVR (beta-lilly has been increased since). PAST MEDICAL HISTORY Diagnosis Date A-fib ([facility]) 07/08/2017 Acute on chronic systolic CHF (congestive heart failure) ([facility]) Adjustment disorder with depressed mood Antiphospholipid antibody syndrome ([facility]) Anxiety disorder Chest pain 07/08/2017 Class 2 severe obesity due to excess calories with serious comorbidity and body mass index (BMI) of 38.0 to 38.9 in adult ([facility]) Coronary artery disease involving [place] coronary artery of akiak heart without angina pectoris CTEPH (chronic thromboembolic pulmonary hypertension) ([facility]) Depression including post Diabetes mellitus ([facility]) Dilated cardiomyopathy ([facility]) Dyspnea 07/08/2017 Esophageal reflux HTN (hypertension) Hx of fdc use of blood thinners on chronic Coumadin,managed by pcp Hyperlipidemia 07/08/2017 LBBB (left bundle branch block) 07/08/2017 Orthostasis Other acute embolism veins 11/2008 left leg Other pulmonary embolism and infarction 1998 Other specified disorder of gallbladder Persistent atrial fibrillation (HCC) Presence of IVC filter Pulmonary HTN (HCC) Recurrent pulmonary emboli (HCC) Renal mass, right S/p nephrectomy S/P Difficult robotic radical nephrectomy on the right Sinus pause SOB (shortness of breath) 07/08/2017 Stage 3 chronic kidney disease (HCC) MEDICATIONS: iv contrast (will be provided with radiology test) MRI Kidney Inject, intravenously, once for 1 dose. No IV access, insert saline lock prior to the beginning of sedation, infusion, injection of imaging exam. Discontinue saline lock post exam. If Pt. has a central line or IVAD, may access for administration according to line specific nursing protocol. Once exam is complete flush line and de-access according to line specific nursing protocol in the MR contrast administration guidelines link. OLANZapine (ZYPREXA) 5 mg tablet Take 5 mg by mouth daily at bedtime. fluticasone (FLONASE) 50 mcg/actuation nasal spray Use 2 Sprays in each nostril once daily. Rinse mouth after use. ELIQUIS 5 mg tab(s) Take 5 mg by mouth two times a day. buPROPion XL (WELLBUTRIN XL) 150 mg 24 hr tablet two times a day. metoprolol succinate ER (TOPROL XL) 25 mg 24 hr tablet Take 50 mg by mouth two times a day. calcitonin,salmon, (MIACALCIN) 200 unit/actuation nasal spray Inhale as instructed. atorvastatin (LIPITOR) 40 mg tablet Take 40 mg by mouth once daily. sildenafil (REVATIO) 20 mg tablet Take 1 tablet by mouth two times a day. furosemide (LASIX) 40 mg tablet Take 40 mg by mouth once daily. finasteride (PROSCAR) 5 mg tablet Take 5 mg by mouth every evening. aspirin, enteric coated (ECOTRIN LOW STRENGTH) 81 mg EC tablet Take 1 tablet by mouth once daily. cholecalciferol (VITAMIN D3) 50 mcg (2,000 unit) tablet Take 2,000 Units by mouth twice daily. escitalopram 20 mg tablet Take 20 mg by mouth once daily. calcium carbonate (CALTRATE) 600 mg calcium (1,500 mg) tab Take 600 mg by mouth two times a day. (Patient not taking: Reported on 05/09/2025) Review of Systems Constitutional: Positive for fatigue. HENT: Negative for hearing loss. Respiratory: Negative for shortness of breath. Cardiovascular: Negative for chest pain and palpitations. Gastrointestinal: Negative for abdominal pain. Endocrine: Negative for cold intolerance. Genitourinary: Negative for hematuria. Skin: Negative for pallor. Neurological: Negative for syncope. Psychiatric/Behavioral: The patient is not nervous/anxious. PHYSICAL EXAMINATION: BP 132/76 (BP Site: Left Arm, BP Position: Sitting, BP Cuff Size: Large Adult) Pulse 83 Wt 251 lb (113.9 kg) SpO2 98% BMI 37.07 kg/m BP w/Orthostatic Vitals Date and Time Orthostatic BP Orthostatic Pulse BP Pulse BP Position BP Site BP Cuff Size 05/09/25 0935 -- -- 132/76 83 Sitting Left Arm Large Adult Physical Exam Constitutional: Appearance: Normal appearance. He is ill-appearing. HENT: Head: Normocephalic and atraumatic. Eyes: Conjunctiva/sclera: Conjunctivae normal. Cardiovascular: Rate and Rhythm: Normal rate. Rhythm irregular. Pulmonary: Effort: Pulmonary effort is normal. No respiratory distress. Breath sounds: No stridor. Skin: General: Skin is dry. Coloration: Skin is not pale. Neurological: Mental Status: He is alert and oriented to person, place, and time. Psychiatric: Mood and Affect: Mood normal. I have personally reviewed the Electrocardiogram. Assessment PLAN AND RECOMMENDATIONS: ASSESSMENT/PLAN: 1. Persistent atrial fibrillation (HCC) - ICD9: 427.31, ICD10: I48.19 (primary diagnosis) Longstanding persistent atrial fibrillation, on rate control/anticoagulation. Beta-lilly was recently increased due to RVR noted on pacemaker interrogations - ECG B/O W INTERP (MED OFFICE) 2. LBBB (left bundle branch block) - ICD9: 426.3, ICD10: I44.7 3. 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 4. Pacemaker - ICD9: V45.01, ICD10: Z95.0 Normal function, continue quarterly device interrogations and annual office visits. If LVEF fails to improve after 3 months of GDMT, would consider device upgrade to SPICE ROOM WORKER-D. 5. Sinus node dysfunction (HCC) - ICD9: 427.81, ICD10: I49.5 Addressed with the dual-chamber pacemaker implantation 6. Cardiomyopathy, nonischemic (HCC) - ICD9: 425.4, ICD10: I42.8 LVEF 30%, receiving beta-lilly. Will contact general cardiology service to assist with GDMT. If LVEF fails to improve after an appropriate course of therapy, would consider pacemaker upgrade to SPICE ROOM WORKER-D in light of LV dysfunction and LBBB. Mirian Horan MD CONTACT INFORMATION: Mirian Horan MD documented in this encounter [facility] 04-11-2025 Note Addended by: FERMIN SANCHEZ on: 04/11/2025 09:09 AM Modules accepted: Orders [facility] 04-11-2025 Miscellaneous Notes Addended by: FERMIN SANCHEZ on: 04/11/2025 09:09 AM Modules accepted: Orders documented in this encounter [facility] 04-11-2025 Note HNO ID: [id number] Author: FERMIN SANCHEZ MD Service: ? Author Type: Physician Type: Progress Notes Filed: 04/11/2025 09:06 Note Text: CHIEF COMPLAINT The patient is a 74-year-old male with a history of clear cell renal cell carcinoma, status post right nephrectomy in 2021, presenting for follow-up. HISTORY OF PRESENT ILLNESS: The patient reports experiencing dyspnea and is unsure which specialist to consult for this issue. He mentions having multiple specialists involved in his care. The patient underwent a right nephrectomy in 2021 for clear cell renal cell carcinoma, which was confined to the kidney with negative margins. Prior to the nephrectomy, he experienced spontaneous bleeding from the right kidney, which was initially managed with embolization but ultimately required surgical removal of the kidney. He does not recall the details of the bleeding episode but notes that the embolization didn't go well and did not resolve the issue. A biopsy of a soft tissue mass in the right renal fossa was performed on 12/13/2022, almost a year after the nephrectomy. The patient does not recall the details of this biopsy. Recent MRI on 04/02/2025 showed stable fat necrosis in the surgical bed and cystic and solid nodularity in the surgical bed unchanged in size. There is no evidence of recurrence of disease. A recent chest X-ray was performed, but a chest CT was ordered and not completed. Blood work in January showed decreased kidney function. The patient is not currently seeing a cable splicer helper. @SRIKANTH@ PSA (ng/mL) Date Value 04/11/2023 0.80 No results found for this basename: uglucpoc,ubilipoc,uketonpoc,usgp oc,uhbpoc,uphpoc,upropoc,uuropoc ,unitpoc,uwbcpoc ,ucolpoc,uclarpoc ALLERGIES: ALLERGIES No Known Allergies MEDICATIONS: OLANZapine (ZYPREXA) 5 mg tablet Take 5 mg by mouth daily at bedtime. fluticasone (FLONASE) 50 mcg/actuation nasal spray Use 2 Sprays in each nostril once daily. Rinse mouth after use. ELIQUIS 5 mg tab(s) Take 5 mg by mouth two times a day. buPROPion XL (WELLBUTRIN XL) 150 mg 24 hr tablet two times a day. metoprolol succinate ER (TOPROL XL) 25 mg 24 hr tablet Take 50 mg by mouth two times a day. calcium carbonate (CALTRATE) 600 mg calcium (1,500 mg) tab Take 600 mg by mouth two times a day. atorvastatin (LIPITOR) 40 mg tablet Take 40 mg by mouth once daily. sildenafil (REVATIO) 20 mg tablet Take 1 tablet by mouth two times a day. furosemide (LASIX) 40 mg tablet Take 40 mg by mouth once daily. finasteride (PROSCAR) 5 mg tablet Take 5 mg by mouth every evening. aspirin, enteric coated (ECOTRIN LOW STRENGTH) 81 mg EC tablet Take 1 tablet by mouth once daily. cholecalciferol (VITAMIN D3) 50 mcg (2,000 unit) tablet Take 2,000 Units by mouth twice daily. escitalopram 20 mg tablet Take 20 mg by mouth once daily. iv contrast (will be provided with radiology test) MRI Kidney Inject, intravenously, once for 1 dose. No IV access, insert saline lock prior to the beginning of sedation, infusion, injection of imaging exam. Discontinue saline lock post exam. If Pt. has a central line or IVAD, may access for administration according to line specific nursing protocol. Once exam is complete flush line and de-access according to line specific nursing protocol in the MR contrast administration guidelines link. calcitonin,salmon, (MIACALCIN) 200 unit/actuation nasal spray Inhale as instructed. (Patient not taking: Reported on 04/11/2025) HISTORIES: PAST MEDICAL HISTORY Diagnosis Date A-fib (HCC) 07/08/2017 Acute on chronic systolic CHF (congestive heart failure) (HCC) Adjustment disorder with depressed mood Antiphospholipid antibody syndrome (HCC) Anxiety disorder Chest pain 07/08/2017 Class 2 severe obesity due to excess calories with serious comorbidity and body mass index (BMI) of 38.0 to 38.9 in adult (HCC) Coronary artery disease involving [place] coronary artery of [place] heart without angina pectoris CTEPH (chronic thromboembolic pulmonary hypertension) (HCC) Depression including post Diabetes mellitus (HCC) Dilated cardiomyopathy (HCC) Dyspnea 07/08/2017 Esophageal reflux HTN (hypertension) Hx of fdc use of blood thinners on chronic Coumadin,managed by pcp Hyperlipidemia 07/08/2017 LBBB (left bundle branch block) 07/08/2017 Orthostasis Other acute embolism veins 11/2008 left leg Other pulmonary embolism and infarction 1998 Other specified disorder of gallbladder Persistent atrial fibrillation (HCC) Presence of IVC filter Pulmonary HTN (HCC) Recurrent pulmonary emboli (HCC) Renal mass, right S/p nephrectomy S/P Difficult robotic radical nephrectomy on the right Sinus pause SOB (shortness of breath) 07/08/2017 Stage 3 chronic kidney disease (HCC) has a past surgical history that includes tonsillectomy primary/secondary age 12/>; laps surg cholecystectomy w/cholangiography (04/21/2009); wendy (more content not included)... [facility] 04-11-2025 History of Presen t illness Narrative Images from the original note were not included. CHIEF COMPLAINT The patient is a 74-year-old male with a history of clear cell renal cell carcinoma, status post right nephrectomy in 2021, presenting for follow-up. HISTORY OF PRESENT ILLNESS: The patient reports experiencing dyspnea and is unsure which specialist to consult for this issue. He mentions having multiple specialists involved in his care. The patient underwent a right nephrectomy in 2021 for clear cell renal cell carcinoma, which was confined to the kidney with negative margins. Prior to the nephrectomy, he experienced spontaneous bleeding from the right kidney, which was initially managed with embolization but ultimately required surgical removal of the kidney. He does not recall the details of the bleeding episode but notes that the embolization didn't go well and did not resolve the issue. A biopsy of a soft tissue mass in the right renal fossa was performed on 12/13/2022, almost a year after the nephrectomy. The patient does not recall the details of this biopsy. Recent MRI on 04/02/2025 showed stable fat necrosis in the surgical bed and cystic and solid nodularity in the surgical bed unchanged in size. There is no evidence of recurrence of disease. A recent chest X-ray was performed, but a chest CT was ordered and not completed. Blood work in January showed decreased kidney function. The patient is not currently seeing a cable splicer helper. @ALLANGIOVANNYMIANRoxy@ PSA (ng/mL) Date Value 04/11/2023 0.80 No results found for this basename: uglucpoc,ubilipoc,uketonpoc,usgp oc,uhbpoc,uphpoc,upropoc,uuropoc ,unitpoc,uwbcpoc,ucolpoc,uclarpo c ALLERGIES: ALLERGIES No Known Allergies MEDICATIONS: OLANZapine (ZYPREXA) 5 mg tablet Take 5 mg by mouth daily at bedtime. fluticasone (FLONASE) 50 mcg/actuation nasal spray Use 2 Sprays in each nostril once daily. Rinse mouth after use. ELIQUIS 5 mg tab(s) Take 5 mg by mouth two times a day. buPROPion XL (WELLBUTRIN XL) 150 mg 24 hr tablet two times a day. metoprolol succinate ER (TOPROL XL) 25 mg 24 hr tablet Take 50 mg by mouth two times a day. calcium carbonate (CALTRATE) 600 mg calcium (1,500 mg) tab Take 600 mg by mouth two times a day. atorvastatin (LIPITOR) 40 mg tablet Take 40 mg by mouth once daily. sildenafil (REVATIO) 20 mg tablet Take 1 tablet by mouth two times a day. furosemide (LASIX) 40 mg tablet Take 40 mg by mouth once daily. finasteride (PROSCAR) 5 mg tablet Take 5 mg by mouth every evening. aspirin, enteric coated (ECOTRIN LOW STRENGTH) 81 mg EC tablet Take 1 tablet by mouth once daily. cholecalciferol (VITAMIN D3) 50 mcg (2,000 unit) tablet Take 2,000 Units by mouth twice daily. escitalopram 20 mg tablet Take 20 mg by mouth once daily. iv contrast (will be provided with radiology test) MRI Kidney Inject, intravenously, once for 1 dose. No IV access, insert saline lock prior to the beginning of sedation, infusion, injection of imaging exam. Discontinue saline lock post exam. If Pt. has a central line or IVAD, may access for administration according to line specific nursing protocol. Once exam is complete flush line and de-access according to line specific nursing protocol in the MR contrast administration guidelines link. calcitonin,salmon, (MIACALCIN) 200 unit/actuation nasal spray Inhale as instructed. (Patient not taking: Reported on 04/11/2025) HISTORIES: PAST MEDICAL HISTORY Diagnosis Date A-fib ([facility]) 07/08/2017 Acute on chronic systolic CHF (congestive heart failure) ([facility]) Adjustment disorder with depressed mood Antiphospholipid antibody syndrome ([facility]) Anxiety disorder Chest pain 07/08/2017 Class 2 severe obesity due to excess calories with serious comorbidity and body mass index (BMI) of 38.0 to 38.9 in adult ([facility]) Coronary artery disease involving akiak coronary artery of akiak heart without angina pectoris CTEPH (chronic thromboembolic pulmonary hypertension) ([facility]) Depression including post Diabetes mellitus (HCC) Dilated cardiomyopathy (HCC) Dyspnea 07/08/2017 Esophageal reflux HTN (hypertension) Hx of fdc use of blood thinners on chronic Coumadin,managed by pcp Hyperlipidemia 07/08/2017 LBBB (left bundle branch block) 07/08/2017 Orthostasis Other acute embolism veins 11/2008 left leg Other pulmonary embolism and infarction 1998 Other specified disorder of gallbladder Persistent atrial fibrillation (HCC) Presence of IVC filter Pulmonary HTN (HCC) Recurrent pulmonary emboli (HCC) Renal mass, right S/p nephrectomy S/P Difficult robotic radical nephrectomy on the right Sinus pause SOB (shortness of breath) 07/08/2017 Stage 3 chronic kidney disease (HCC) has a past surgical history that includes tonsillectomy primary/secondary age 14/>; laps surg cholecystectomy w/cholangiography (04/21/2009); wendy (transesophageal echo) (11/30/2016); echocardiogram (01/04/2006); ekg 12 lead (04/23/2011); stress test (03/11/2006); ct angiography chest (11/30/2016); event monitor (07/08/2017); pacemaker implant (Left, 07/22/2020); cc pci coronary intervent (2018); cardioversion (09/12/2020); echo transesophag congen probe plcny imgng i&r (01/02/2021); cardioversion (02/04/2021); echo transesophag congen probe plcny imgng i&r (02/04/2021); past surgical history of (Right); and left heart cath,percutaneous (02/04/2025). FAMILY HISTORY Problem Relation Age of Onset Arthritis Mother Cancer Mother Blood Disease Father clotting factor Diabetes Father Seizures Father Blood Disease Sister clotting factor DVT Sister Blood Disease Brother clotting ffactor DVT Brother SOCIAL HISTORY[1] REVIEW OF SYSTEMS: Const: Well appearing, in no acute distress, well-hydrated, well-nourished, alert, awake, oriented to time, place and person. The remainder of the ROS was reviewed and is negative. Respiratory: (+) shortness of breath PHYSICAL EXAMINATION: General: Alert & oriented, no acute distress Skin: Normal HEENT: Pupils equal, round. Oral cavity, oropharynx clear Neck: Supple, no mass Breast: Deferred Respiratory: Clear to auscultation, bilaterally Cardiovascular: Regular rate and rhythm, no murmurs, rubs, or gallops Abdomen: Soft, non-tender, non-distended, no masses palpable, no hepatosplenomegaly, normal bowel sounds Genitourinary: Deferred MSK: Back is non-tender Extremities: No clubbing, cyanosis, or edema BP 142/89 Pulse 84 SpO2 95% I personally reviewed the patient's radiology images and dictation and I agree with the radiologist's opinion. I personally reviewed the patient's laboratory studies. Assessment & Plan: 1. Renal cell carcinoma of right kidney (HCC) (C64.1) Malignant neoplasm of right kidney, except renal pelvis (HCC) (C64.1) Patient underwent right nephrectomy in 2021 for clear cell renal cell carcinoma; tumor was confined to the kidney with negative margins. Recent MRI on 04/02/2025 shows stable fat necrosis and unchanged cystic and solid nodularity in the surgical bed. No evidence of recurrent disease. Previous biopsy on 12/13/2022 of the right renal fossa showed no malignancy. - Continue surveillance per NCCN guidelines with annual imaging and follow-up for a total of 5 years post-surgery. - Ordered the same battery of tests for next year. - Follow-up in one year. 2. Stage 3 chronic kidney disease, unspecified whether stage 3a or 3b CKD (HCC) (N18.30) Recent BMP in January shows decreased kidney function, consistent with Stage 3 CKD. Patient is not currently on dialysis. - Referral to nephrology for further evaluation and management to maintain current kidney function and prevent progression to dialysis. 12/13/2022: A. Soft tissue mass of right renal fossa, core biopsy: - Benign renal tissue with chronic pyelonephritis and globally sclerotic glomeruli. 06/21/2022:A. Kidney, right, radical nephrectomy: (jk) - Clear cell renal cell carcinoma with regression, WHO/ISUP grade 3, confined to kidney (see comment). - Tumor size: 4.5 cm in greatest dimension. - Margins negative for tumor. Abbreviated A&P: Renal cell carcinoma status post radical nephrectomy Tissue in the renal bed negative for malignancy. Continue to follow-up based on NCCN guideline Written and verbal health teaching given to patient, patient verbalizes understanding and agrees with treatment plan. Patient will call if worsening symptoms, no improvement, or any other concerns. Plan discussed. Fermin Sanchez MD Electronically Signed: Fermin Sanchez MD April 11, 2025 9:05 AM This note was partially created using voice recognition software and is inherently subject to errors including those of syntax and sound-alike substitutions which may escape proofreading. In such instances, original meaning may be extrapolated by contextual derivation. Recording using [employer] software for draft documentation of the visit was discussed with the patient/authorized sales representative gas service; all questions welcomed and answered. Patient/authorized sales representative gas service agreed to proceed Patient Instructions We discussed your follow-up care for kidney cancer: - Your kidney cancer appears to be cured. The tumor was confined to the kidney, and the margins were negative after your right kidney was removed in 2021. There is no evidence of recurrence based on your most recent imaging and tests. - Your MRI from April 02, 2023, showed stable fat necrosis and unchanged cystic and solid nodularity in the surgical bed. A prior biopsy of this area confirmed no recurrence of cancer. - All necessary follow-up testing per the National Comprehensive Cancer Network (NCCN) guidelines has been completed, and no evidence of disease was found. - I recommend continuing follow-up at 1-year intervals for a total of 5 years. Your next follow-up will be scheduled for May 2024, including imaging and lab work. We discussed your kidney function: - Your kidney function is low but stable and does not currently require dialysis. To help maintain your kidney function, I recommend seeing a cable splicer helper (kidney specialist). They can evaluate your kidney health, review any medications that may affect your kidneys, and help prevent further decline in function. - We will assist with a referral to nephrology. We discussed your shortness of breath: - I recommend following up with your primary care physician or a fire sprinkler installer to evaluate and manage your shortness of breath. Follow-up plan: - I have ordered your routine follow-up imaging and lab work for May 2024. - Please schedule an appointment with a cable splicer helper to assess your kidney function. - Follow up with your primary care physician or fire sprinkler installer regarding your shortness of breath. If you have any new or concerning symptoms, please contact our office. [1] Social History Tobacco Use Smoking status: Never Smokeless tobacco: Never Vaping Use Vaping status: Never Used Substance Use Topics Alcohol use: No Drug use: No documented in this encounter [facility] 04-02-2025 Note HNO ID: [id number] Author: RACHEAL IGLESIAS produce production team member Service: ? Author Type: Technologist Type: Progress Notes Filed: 04/02/2025 14:02 Note Text: Radiology Service Progress Note DATE OF SERVICE: April 02, 2025 TIME: 2:01 PM PATIENT IDENTITY VERIFICATION COMPLETED USING TWO (2) STANDARD IDENTIFIERS: Name and Date of confirmed by patient verbally and Name and Date of confirmed by identification band. FALL SCREENING: Has the patient had 2 falls in the last year or 1 fall with injury or currently using an Ambulatory Assistive Device (Walker, Cane, Wheelchair, Crutches, etc.)? No PATIENT GENDER DATA: Assigned male at PATIENT RELEVANT IMPLANT DATA REVIEWED: Yes PATIENT PRESENTS WITH AN IMPLANTABLE OR ATTACHED WIREWORKER SUPERVISOR: Yes Other [employer] ALLERGIES: Reviewed and unchanged CONTRAST ALLERGY: NO. EXAM: MRI - CONTRAST TYPE: GROUP II PERIPHERAL IV DATA: Ambulatory: A peripheral IV was started in the Right with a Angio cath: 22 gauge. RADIOLOGY DEPARTMENT: MR; Exam(s) Completed: Body: Renal. Aromatherapy Administered: No SIGNATURE: Racheal Iglesias produce production team member PATIENT NAME: Alisa Hagan DATE: April 02, 2025 TIME: 2:01 PM [facility] 04-02-2025 Note HNO ID: [id number] Author: WILY ALNDIS RN Service: Nursing Author Type: Registered Nurse Type: Progress Notes Filed: 04/02/2025 14:30 Note Text: Radiology Service Progress Note PATIENT NAME: Alisa Hagan DATE OF SERVICE: April 02, 2025 TIME: 2:24 PM PATIENT IDENTITY VERIFICATION COMPLETED USING TWO (2) STANDARD IDENTIFIERS: Name and Date of confirmed by patient verbally and Name and Date of confirmed by identification band. FALL RISK: Has the patient had 2 falls in the last year?, Has the patient had 1 fall in the last year with injury?, and Is the patient currently using an Ambulatory Assistive Device (Walker, Cane, Wheelchair, Crutches, etc.)? No PATIENT GENDER DATA: Assigned male at PATIENT RELEVANT IMPLANT DATA REVIEWED: Yes ALLERGIES: Reviewed and unchanged MEDICATIONS REVIEWED: YES PROCEDURE: MRI - Conditional Pacemaker [employer] Associate Designer Device - Settings: DOO 90bpm Physiologic monitoring per standard operating procedure. See vital sign flowsheet. IV SITE: Ambulatory: Right arm 22g angiocath started by MRI PERIPHERAL IV ACCESS: Discontinued PATIENT TOLERATED PROCEDURE: Without incident. PATIENT DISCHARGED TO: Home/Self Care SIGNED BY: Wily Landis RN [facility] 03-29-2025 Telephone encounter Note I spoke to Alisa Hagan and informed them of Dali's response and recommendations. Patient voiced understanding will increase Metoprolol and follow up with as scheduled. Janie Tarango LPN [facility] 03-29-2025 Miscellaneous Notes I spoke to Alisa Hagan and informed them of Dali's response and recommendations. Patient voiced understanding will increase Metoprolol and follow up with as scheduled. Janie Tarango LPN Please call patient, can you have him increase his metoprolol to 75 mg twice a day I had them do a remote device check it does show some high rates with his atrial fibrillation he has upcoming appointment next week with Dr. Horan. I wonder if this is not causing some of his reduction in his heart function keep his appointmentwith Dr. Horan as planned for next Tuesday. Dali Dillon APRN.CNP Jhon Mcnally, as requested a remote was received today. Report is available for review in [facility]. Sierra Chanel documented in this encounter [facility] 03-29-2025 Telephone encounter Note Please call patient, can you have him increase his metoprolol to 75 mg twice a day I had them do a remote device check it does show some high rates with his atrial fibrillation he has upcoming appointment next week with Dr. Horan. I wonder if this is not causing some of his reduction in his heart function keep his appointmentwith Dr. Horan as planned for next Tuesday. Dali Dillon APRN.CNP [facility] 03-28-2025 Telephone encounter Note Jhon Mcnally, as requested a remote was received today. Report is available for review in Epic. Sierra Chanel [facility] 03-28-2025 Telephone encounter Note The patient was discharged from [facility] 02-04-25 with an order to schedule with the Heart Failure Clinic. The Clinic reached out to the patient with no response. Therefore, this is considered a deferral of the Clinic's services at this time. [facility] 03-28-2025 Miscellaneous Notes The patient was discharged from [facility] 02-04-25 with an order to schedule with the Heart Failure Clinic. The Clinic reached out to the patient with no response. Therefore, this is considered a deferral of the Clinic's services at this time. documented in this encounter [facility] 03-22-2025 Instructions Dali Dillon APRN.CNP - 03/22/2025 10:53 AM EDT I have asked the device clinic to do a remote check on your pacemake to look at the heart rates documented in this encounter [facility] 03-22-2025 History of Presen t illness Narrative PRIMARY CARE PHYSICIAN: Smitha Ray [address] [place] [id number] Chief Complaint Patient presents with: [facility] Hospital Follow Up: LBBB HISTORY OF PRESENT ILLNESS: Mr. Hagan is a 74 year old male who is known to Dr. Jain , patient has a history of atrial fibrillation, recent pacemaker implant [employer] dual-chamber pacemaker 11-24-[address] Horan for bradycardia and sinus node dysfunction, chronic recurrent pulmonary embolisms, he continued oral anticoagulation for suspected presence of left atrial clot PFO was also noted.. He sees Dr. Frias for pulmonary hypertension and with history of multiple thromboembolic events on chronic Coumadin therapy. Patient presented the hospital June 16, 2022, for dizziness and difficulty urinating was previously admitted for subscapular hematoma and retroperitoneal bleeding from May 24 to June 04 then June 05 through , CT done during the first admission showed large right subcapsular hematoma in the area of right renal mass extending inferiorly through the right retroperitoneum, he underwent IVC filter placement on 05-20-2022, in preparation for surgery, Coumadin was restarted he had a spontaneous bleed from his tumor requiring IR embolization, blood transfusion and admission to the MICU, During the June 16, 2022 admission, CT demonstrated bilateral pulmonary emboli and was transferred to interventional radiology for pulmonary angiography, pulmonary artery thrombectomy on June 21 he underwent robotic assisted laparoscopic right radial nephrectomy he received 2 units packed red blood cells intraoperatively. Was also found to be in atrial fibrillation with rapid ventricular response and was admitted to the ICU for postoperative management, patient received multiple transfusions postoperatively, on 06-26 CT of the chest revealed pneumonia started on antibiotics, was transitioned to Coumadin therapy During his admission for atrial fibrillation with rapid ventricular response, patient metoprolol was increased to 12.5 mg every 6 hours, he also was provided dig load, amiodarone was not recommended secondary to history of left atrial appendage thrombus. Patient was seen Dr. Jaeger in [place] on January 14, 2025 patient had been admitted to [facility] and underwent a stress test and echocardiogram that showed decline in LV function from 45 to 25%, he had complained of worsening shortness of breath fatigue and lower extremity edema, patient was started on guideline medical therapy, and it was reviewed with patient that he should undergo right and left heart catheterization for definitive diagnosis, it would was reviewed in great detail with patient that he would need to discontinue Eliquis for 48 hours prior to procedure he was worried about discontinuing oral anticoagulation he was also worried about renal function given his history of nephrectomy. He underwent a diagnostic heart catheterization on 02-04-2025, this demonstrated mild disease in the LAD, proximal circumflex had 50% disease RCA severe diffuse disease large-caliber vessel PDA small caliber vessel with severe diffuse disease normal LVEDP was recommended medicinal therapy. Patient arrives here today for hospital follow-up, he states he is doing much better with symptom management, he states he has resumed his activity around his house he does not do any structured exercise he states edema has greatly improved, his upcoming MRI planned regarding new diagnosis of kidney mass. He has some anxiety regarding this diagnosis. He denies any current orthopnea denies any chest discomfort PAST MEDICAL HISTORY Diagnosis Date A-fib ([facility]) 07/08/2017 Acute on chronic systolic CHF (congestive heart failure) ([facility]) Adjustment disorder with depressed mood Antiphospholipid antibody syndrome ([facility]) Anxiety disorder Chest pain 07/08/2017 Class 2 severe obesity due to excess calories with serious comorbidity and body mass index (BMI) of 38.0 to 38.9 in adult ([facility]) Coronary artery disease involving akiak coronary artery of akiak heart without angina pectoris CTEPH (chronic thromboembolic pulmonary hypertension) ([facility]) Depression including post Diabetes mellitus ([facility]) Dilated cardiomyopathy ([facility]) Dyspnea 07/08/2017 Esophageal reflux HTN (hypertension) 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,managed by pcp Hyperlipidemia 07/08/2017 LBBB (left bundle branch block) 07/08/2017 Orthostasis Other acute embolism veins 11/2008 left leg Other pulmonary embolism and infarction 1998 Other specified disorder of gallbladder Persistent atrial fibrillation ([facility]) Presence of IVC filter Pulmonary HTN (HCC) Recurrent pulmonary emboli ([facility]) Renal mass, right S/p nephrectomy S/P Difficult robotic radical nephrectomy on the right Sinus pause SOB (shortness of breath) 07/08/2017 Stage 3 chronic kidney disease ([facility]) PAST SURGICAL HISTORY Procedure Laterality Date CARDIOVERSION 09/12/2020 Successful conversion from atrial fibrillation to atrial paced rhythm, by Dr. Horan at [facility] CARDIOVERSION 02/04/2021 Successful conversion from atrial fibrillation to sinus rhythm, by Dr. Horan at [facility] CC PCI CORONARY INTERVENT 2018 CT ANGIOGRAPHY CHEST 11/30/2016 w/contrast ECHO TRANSESOPHAG CONGEN PROBE [facility] I&R 01/02/2021 EF 55%, +LAKSHMI thrombus, +PFO ECHO TRANSESOPHAG CONGEN PROBE [facility] I&R 02/04/2021 EF 50%, mildly dilated RV, moderately dilated LA, no LAKSHMI thrombus, no PFO ECHOCARDIOGRAM 01/04/2006 [facility] EKG 12 LEAD 04/23/2011 [facility] EVENT MONITOR 07/08/2017 24 hour LAPS SURG CHOLECYSTECTOMY W/CHOLANGIOGRAPHY 04/21/2009 LEFT HEART CATH,PERCUTANEOUS 02/04/2025 PACEMAKER IMPLANT Left 07/22/2020 Dual chamber, [employer], MRI compatible 6 weeks after implantm by Dr. Horan at [facility] PAST SURGICAL HISTORY OF Right kidney removal May 2022 STRESS TEST 03/11/2006 [facility] WENDY (TRANSESOPHAGEAL ECHO) 11/30/2016 [facility], TONSILLECTOMY PRIMARY/SECONDARY AGE 14/> FAMILY HISTORY Problem Relation Age of Onset Arthritis Mother Cancer Mother Blood Disease Father clotting factor Diabetes Father Seizures Father Blood Disease Sister clotting factor DVT Sister Blood Disease Brother clotting ffactor DVT Brother Social History Tobacco Use Smoking status: Never Smokeless tobacco: Never Vaping Use Vaping status: Never Used Substance Use Topics Alcohol use: No Drug use: No ALLERGIES No Known Allergies Medications: Current Outpatient Medications Medication Sig Dispense Refill OLANZapine (ZYPREXA) 5 mg tablet Take 5 mg by mouth daily at bedtime. fluticasone (FLONASE) 50 mcg/actuation nasal spray Use 2 Sprays in each nostril once daily. Rinse mouth after use. 11.1 mL 0 ELIQUIS 5 mg tab(s) Take 5 mg by mouth two times a day. buPROPion XL (WELLBUTRIN XL) 150 mg 24 hr tablet two times a day. metoprolol succinate ER (TOPROL XL) 25 mg 24 hr tablet Take 50 mg by mouth two times a day. calcium carbonate (CALTRATE) 600 mg calcium (1,500 mg) tab Take 600 mg by mouth two times a day. atorvastatin (LIPITOR) 40 mg tablet Take 40 mg by mouth once daily. sildenafil (REVATIO) 20 mg tablet Take 1 tablet by mouth two times a day. 60 tablet 5 furosemide (LASIX) 40 mg tablet Take 40 mg by mouth once daily. finasteride (PROSCAR) 5 mg tablet Take 5 mg by mouth every evening. aspirin, enteric coated (ECOTRIN LOW STRENGTH) 81 mg EC tablet Take 1 tablet by mouth once daily. cholecalciferol (VITAMIN D3) 50 mcg (2,000 unit) tablet Take 2,000 Units by mouth twice daily. escitalopram 20 mg tablet Take 20 mg by mouth once daily. calcitonin,salmon, (MIACALCIN) 200 unit/actuation nasal spray Inhale as instructed. (Patient not taking: Reported on 12/20/2023) No current facility-administered medications for this visit. Review of Systems Constitutional: Positive for malaise/fatigue. HENT: Negative for congestion. Eyes: Negative for blurred vision. Respiratory: Positive for shortness of breath. Cardiovascular: Negative for chest pain, palpitations, orthopnea and leg swelling. Gastrointestinal: Negative for blood in stool and nausea. Musculoskeletal: Negative for back pain and falls. Neurological: Negative for dizziness, tingling, speech change, loss of consciousness and weakness. Endo/Heme/Allergies: Does not bruise/bleed easily. Psychiatric/Behavioral: The patient does not have insomnia. Physical Examination: Vitals:BP 105/64 Pulse 87 Resp 16 Ht 5' 9 (1.75m) Wt 255 lb (115.7kg) SpO2 95% BMI 37.64 kg/(m^2). Last 2 Encounter Wt Readings: Date: Wt: 03/09/2022 260 lb (117.9 kg) 01/29/2022 265 lb (120.2 kg) Physical Exam Vitals and nursing note reviewed. Constitutional: Appearance: He is not diaphoretic. HENT: Head: Atraumatic. Right Ear: Hearing normal. Left Ear: Hearing normal. Nose: No nasal deformity, mucosal edema or rhinorrhea. Eyes: Extraocular Movements: Right eye: No nystagmus. Left eye: No nystagmus. Pupils: Pupils are equal, round, and reactive to light. Neck: Vascular: No carotid bruit, hepatojugular reflux or JVD. Trachea: No tracheal deviation. Cardiovascular: Rate and Rhythm: Normal rate. Rhythm irregular. Chest Wall: PMI is not displaced. Pulses: Normal pulses. Heart sounds: Normal heart sounds. No murmur heard. Pulmonary: Effort: Pulmonary effort is normal. Breath sounds: Normal breath sounds. No stridor. Comments: Diminished bilateral bases Abdominal: General: Bowel sounds are normal. Palpations: Abdomen is soft. Tenderness: There is no abdominal tenderness. Musculoskeletal: General: Swelling present. Normal range of motion. Cervical back: Normal range of motion and neck supple. Skin: General: Skin is warm and dry. Coloration: Skin is not pale. Nails: There is no clubbing. Neurological: Mental Status: He is alert and oriented to person, place, and time. Cranial Nerves: No facial asymmetry. Motor: No weakness or abnormal muscle tone. Coordination: Coordination normal. Gait: Gait is intact. Gait normal. Psychiatric: Mood and Affect: Mood and affect normal. Cognition and Memory: Memory normal. Judgment: Judgment normal. Prior Cardiac Testing Echocardiogram 02-26-2025 - The left ventricle is dilated. There is mild left ventricular hypertrophy. Left ventricular systolic function is moderately decreased. EF = 30 5% (visual est.) Definity contrast used for endocardial border detection. Left ventricular diastolic function was not evaluated due to AF. - The right ventricle is normal in size. Right ventricular systolic function is mildly decreased. - The left atrial cavity is mildly dilated. - The right atrial cavity is mildly dilated. - Exam was compared with the prior OUTSIDE echocardiographic exam performed on 12/31/2024 ([facility]). no significant change Cath 02/04/2025 LMT: The LMT has mild luminal irregularities. LAD: The LAD has mild diffuse disease. LCX: The proximal circumflex is narrowed 50 % - focal disease. Additional Comment: Moderate caliber nondominant vessel. The ostium of the vessel has an eccentric 50% stenosis. Otherwise mild diffuse disease. RAMUS: Ramus Status: Not Applicable. RCA: The right posterior descending artery RCA - severe diffuse disease. Additional Comment: Large-caliber dominant vessel. The PDA branch is very small in caliber with severe diffuse disease throughout. The posterior ventricular branches are large in caliber with mild diffuse disease Cardiac Catheterization/PCI 05/25/2018: Left Anterior Descending Artery - The first diagonal artery was medium sized. The second diagonal artery was small. The third diagonal artery was medium to large. The left anterior descending artery gave rise to three diagonal arteries. The left anterior descending artery gave rise to two septal perforators. There was a 30% diffuse stenosis in the left anterior descending artery. There was a 50% discrete stenosis in the proximal first diagonal artery. There was an 80% discrete stenosis in the proximal third diagonal artery. The lesion was believed to be the source of thepatient's symptoms. A bare metal, MINI VISION BMS MERCADO MINI VISION RX BMS 2.5 X 12MM - L1 stent was placed in the third diagonal artery and post-dilated to 2.5 mm. The balloon was inflated 1 time for a maximum duration of 30 seconds to a maximum pressure of 12 baldev. There was no dissection and no perforation. Post-dilation of stent(s) was done with a NC TREK BALLOONS MERCADO BAL NC TREK 2.50 X 8MM - L1 to 2.5 mm at 12 baldev. The balloon was inflated 2 times for a maximum duration of 30 seconds. Postprocedure stenosis was 0%. AYAAN flow was grade 3 before intervention and grade 3 post intervention. Left Circumflex Artery - The circumflex artery gave rise to two obtuse marginal arteries. There was a 60% diffuse stenosis in the proximal left circumflex artery. Right Coronary Artery - The right coronary artery was dominant to the posterior circulation. The right coronary artery gives rise to two posterolateral arteries. There was a 70% discrete stenosis in the proximal second acute marginal artery. There was a 40% diffuse stenosis in the right coronary artery. Regadenoson Cardiolite stress test 12/31/2024 Peak pharmacological ECG with no diagnosis changes secondary to baseline abnormality Baseline atrial fibrillation Fixed septal and mid to distal anterior hypoperfusion suggestive of previous nontransmural infarct versus artifact secondary to left bundle branch block. No reversible changes noted Gated Cardiolite study reports an LVEF of 29% Regadenoson Myoview Stress 02/22/2022: CONCLUSIONS: 1. SPECT Perfusion Study: Normal Perfusion but abnormal EF. 2. There is no scintigraphic evidence for inducible ischemia. 3. No evidence of scarred myocardium. 4. Left ventricle is normal in size. The left ventricle systolic function is mildly decreased. 5. Right ventricle is normal in size. The right ventricle systolic function is normal. 6. This is an intermediate risk scan. Gated Stress FBP LVEF % 41 Echocardiogram [facility] 12/29/2024: Severe generalized LV hypokinesis. Estimated LVEF 25-30% Mild to moderate global right ventricular systolic dysfunction The left atrium is severely enlarged The right atrium is mildly enlarged Moderate (2+) mitral valve insufficiency Mild tricuspid valve insufficiency Right ventricular systolic pressure estimated to be 63 mmHg Echocardiogram 06-17-2022 - The left ventricle is normal in size. There is mild left ventricular hypertrophy. Left ventricular systolic function is normal. EF = 63 5% (2D biplane) Definity contrast used for endocardial border detection. Difficult to assess LV size and function due to beat to beat variability. - The right ventricle is normal in size. Right ventricular systolic function is low normal. - Exam was compared with the prior CC echocardiographic exam performed on 05/26/2022. The RV size appears normal today. LV function has improved. Lexiscan stress test 02-22-2022 1. SPECT Perfusion Study: Normal Perfusion but abnormal EF. 2. There is no scintigraphic evidence for inducible ischemia. 3. No evidence of scarred myocardium. 4. Left ventricle is normal in size. The left ventricle systolic function is mildly decreased. 5. Right ventricle is normal in size. The right ventricle systolic function is normal. 6. This is an intermediate risk scan. Gated Stress FBP LVEF % 41 Echo: 02/04/21: WENDY: CONCLUSIONS: - Exam indication: Pre Cardioversion, Pre AF Ablation - Left ventricular systolic function is mildly decreased. EF = 50 5% (visual est.) - The right ventricle is mildly dilated. Right ventricular systolic function is moderately decreased. - The left atrial cavity is moderately dilated. There is no left atrial appendage thrombus. - There is no patent foramen ovale as detected by Doppler and agitated saline contrast. - Exam was compared with the prior echocardiographic exam performed on 01/02/21 Cardiac Catheterization: 05/25/18: BMS to diagonal. RA: RV: 38/8 PAP; - (35) PWP: - (17) 65% SAT Holter / Event Recorder : - Stress Test : 09/16/17: IMPRESSION: 1. No evidence for myocardial ischemia or scar. 2. Normal left ventricular wall motion as described above, with an ejection fraction of 57 %. 3. This is a low risk scan No prior studies to compare Assessment and Plan: ASSESSMENT/PLAN: 1. Atrial fibrillation Patient is established with Dr. Horan, has a history of persistent atrial fibrillation, managed on rate control and anticoagulation, underwent dual-chamber pacemaker placement in June 2020 He is asymptomatic with his atrial fibrillation, currently on 50 mg of metoprolol succinate twice a day, last device interrogation from September 2024 revealed atrial fibrillation with rates 61-93, there was no high ventricular rates noted he follows with Dr. Horan. I will I will ask for an additional device interrogation to make sure rates have continued to stay control since heart catheterization did not reveal any cause for decline in LV function with patient being asymptomatic with his atrial fibrillation And again remains on Eliquis 5 mg twice a day for thrombolytic prophylaxis with no overt bleeding 2. New onset HFrEF Patient echocardiogram from December 2024 at [facility] shows severe generalized LV hypokinesis ejection fraction 25 to 30% left atrium severely dilated 2+ mitral valve insufficiency RSVP 63 mmHg repeat heart catheterization from 02-26-2025 shows ejection fraction 30 to 35% Patient would benefit to add Entresto and Farxiga to his GDMT patient wishes to proceed forward with his workup for renal carcinoma before initiation of additional agents, blood pressure also noted at home to be soft in the 1 teens. He has been asymptomatic 3. Coronary artery disease Heart catheterization from January 2025 left anterior descending mild diffuse disease, circumflex mild diffuse disease, PDA small in caliber with severe diffuse disease throughout was recommended medicinal therapy 4. History of multiple pulmonary embolisms He is on oral anticoagulation therapy 5. Chronic kidney disease 6. Cataracts He is considering cataract surgery in the future, I did tell him that cataract surgery is considered a low risk cardiac procedure and needs to be performed given his thrombosis history without interruption of his Eliquis Dali Dillon APRN.CNP Follow up planning: Patient has follow-up appoint with Dr. Horan keep planned appoint with Dr. Jaeger as scheduled Electronically signed by Dali Dillon APRN.CNP The above note was partially created using a dictation recognition software. A reasonable attempt has been made to correct any errors. I spent >30 minutes in the visit, which included a review of the patients pertinent past medical history, history of present health status, review of systems, assessment & planning, counseling, and further coordination of care. documented in this encounter [facility] 03-22-2025 Note HNO ID: [id number] Author: DALI DILLON APRN.CNP Service: ? Author Type: Nurse Practitioner Type: Progress Notes Filed: 03/22/2025 12:55 Note Text: PRIMARY CARE PHYSICIAN: Smitha Ray [address] [place] [address] Chief Complaint Patient presents with: CARD Hospital Follow Up: [facility] HISTORY OF PRESENT ILLNESS: Mr. Hagan is a 74 year old male who is known to Dr. Jain , patient has a history of atrial fibrillation, recent pacemaker implant [employer] dual-chamber pacemaker 07-22-[address] Horan for bradycardia and sinus node dysfunction, chronic recurrent pulmonary embolisms, he continued oral anticoagulation for suspected presence of left atrial clot PFO was also noted.. He sees Dr. Frias for pulmonary hypertension and with history of multiple thromboembolic events on chronic Coumadin therapy. Patient presented the hospital June 16, 2022, for dizziness and difficulty urinating was previously admitted for subscapular hematoma and retroperitoneal bleeding from May 24 to June 04 then June 05 through , CT done during the first admission showed large right subcapsular hematoma in the area of right renal mass extending inferiorly through the right retroperitoneum, he underwent IVC filter placement on 05-20-2022, in preparation for surgery, Coumadin was restarted he had a spontaneous bleed from his tumor requiring IR embolization, blood transfusion and admission to the MICU, During the June 16, 2022 admission, CT demonstrated bilateral pulmonary emboli and was transferred to interventional radiology for pulmonary angiography, pulmonary artery thrombectomy on June 21 he underwent robotic assisted laparoscopic right radial nephrectomy he received 2 units packed red blood cells intraoperatively. Was also found to be in atrial fibrillation with rapid ventricular response and was admitted to the ICU for postoperative management, patient received multiple transfusions postoperatively, on 06-26 CT of the chest revealed pneumonia started on antibiotics, was transitioned to Coumadin therapy During his admission for atrial fibrillation with rapid ventricular response, patient metoprolol was increased to 12.5 mg every 6 hours, he also was provided dig load, amiodarone was not recommended secondary to history of left atrial appendage thrombus. Patient was seen Dr. Jaeger in [place] on January 14, 2025 patient had been admitted to [facility] and underwent a stress test and echocardiogram that showed decline in LV function from 45 to 25%, he had complained of worsening shortness of breath fatigue and lower extremity edema, patient was started on guideline medical therapy, and it was reviewed with patient that he should undergo right and left heart catheterization for definitive diagnosis, it would was reviewed in great detail with patient that he would need to discontinue Eliquis for 48 hours prior to procedure he was worried about discontinuing oral anticoagulation he was also worried about renal function given his history of nephrectomy. He underwent a diagnostic heart catheterization on 02-04-2025, this demonstrated mild disease in the LAD, proximal circumflex had 50% disease RCA severe diffuse disease large-caliber vessel PDA small caliber vessel with severe diffuse disease normal LVEDP was recommended medicinal therapy. Patient arrives here today for hospital follow-up, he states he is doing much better with symptom management, he states he has resumed his activity around his house he does not do any structured exercise he states edema has greatly improved, his upcoming MRI planned regarding new diagnosis of kidney mass. He has some anxiety regarding this diagnosis. 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 [facility] 03-07-2025 Instructions Smitha Sidhu PA-C - 03/07/2025 10:15 AM EDT - You had a CT scan of your chest on February 01, which showed a 5 mm nodule in your right upper lobe and an enlarged right hiatal lymph node. These findings may have been related to your recent illness, but I will order a repeat CT scan in April to ensure these changes have resolved. - Shortness of Breath and Pulmonary Hypertension: - You are currently taking Sildenafil 20 mg twice daily for pulmonary hypertension. Please continue this medication as prescribed. - Since your last pulmonary function testing and 6-minute walk test were two years ago, I will order repeat tests. These can be scheduled after your other imaging and testing are completed. - If you experience worsening shortness of breath, please let us know. - Heart Failure and Fluid Management: - Continue taking Lasix 40 mg daily and monitor for swelling or sudden weight gain. If you notice significant swelling or weight changes, please contact us. - Continue to watch your sodium intake as you have been doing. - I have ordered a lab test called NT-proBNP to monitor your heart function. There is no souza to complete this; it can be done the next time you have labs drawn with your primary care provider or the heart failure clinic. - Medications: - Continue taking Eliquis as prescribed for your history of blood clots in the lung. - If you experience lightheadedness, dizziness, or low blood pressure readings at home, please let us know. - Follow-Up: - You are scheduled to see the heart failure clinic soon, which will be helpful for your ongoing care. - We will follow up on your imaging and testing results at your next visit. If you have any new or worsening symptoms, please contact us sooner. Please continue your current medications and care plan. If you have any questions or concerns, feel free to reach out to our office. documented in this encounter [facility] 03-07-2025 History of Presen t illness Narrative Images from the original note were not included. DEPARTMENT OF PULMONARY MEDICINE ESTABLISHED PATIENT OFFICE VISIT 03/07/2025 HISTORY OF PRESENT ILLNESS: Alsia Hagan is a 74 year old male who presents today for follow-up regarding pulmonary hypertension. 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 Never smoker. Last saw Dr. Frias 06/23/2023. Most recent pulmonary office visit was on 01/03/25 with Jesenia Arzate CNP. Recommendations from that office visit were as follows: -Continue sildenafil 20 mg BID Was admitted to [facility] from 02/01/2025-02/04/2025 for treatment for CHF exacerbation, pulmonary not consulted this admission. Today, the patient reports he is doing fair since last office visit. Alisa reports the recent discovery of a kidney lesion following a scan ordered during a recent hospitalization. He has an MRI scheduled for 04/05/2023. He also has a history of nephrectomy and renal cancer, and it is noted that something was seen on his remaining kidney. He experiences dyspnea, which has been consistent over the past few years and occurs primarily with exertion, such as walking short distances or climbing a flight of stairs. Despite this, he is able to complete household tasks, albeit at a slower pace. He also reports a dry cough and occasional wheezing. He is currently on sildenafil 20 mg BID for pulmonary hypertension and Eliquis for a history of pulmonary embolism. He previously attempted sildenafil TID but experienced lightheadedness and dizziness, which he notes have been ongoing issues unrelated to the medication. He reports unintentional weight loss of 10-12 lbs and monitors his sodium intake. He also experiences chronic lower extremity edema, which he notes has improved recently. He is on Lasix 40 mg daily but has not been instructed to take an additional dose for increased swelling. He denies any worsening of edema at the end of the day and takes Lasix at variable times. He reports occasional chest pain but denies any recent pulmonary function tests or a 6-minute walk test in the past 2 years. Subjective ROS: Constitutional: (+) weight loss Cardiovascular: (+) chest pain, (+) peripheral edema Respiratory: (+) exertional dyspnea, (+) dry cough, (+) wheezing Neurological: (+) lightheadedness Current Outpatient Medications Medication Sig Dispense Refill OLANZapine (ZYPREXA) 5 mg tablet Take 5 mg by mouth daily at bedtime. fluticasone (FLONASE) 50 mcg/actuation nasal spray Use 2 Sprays in each nostril once daily. Rinse mouth after use. 11.1 mL 0 ELIQUIS 5 mg tab(s) Take 5 mg by mouth two times a day. buPROPion XL (WELLBUTRIN XL) 150 mg 24 hr tablet two times a day. metoprolol succinate ER (TOPROL XL) 25 mg 24 hr tablet Take 50 mg by mouth two times a day. atorvastatin (LIPITOR) 40 mg tablet Take 40 mg by mouth once daily. sildenafil (REVATIO) 20 mg tablet Take 1 tablet by mouth two times a day. 60 tablet 5 furosemide (LASIX) 40 mg tablet Take 40 mg by mouth once daily. finasteride (PROSCAR) 5 mg tablet Take 5 mg by mouth every evening. aspirin, enteric coated (ECOTRIN LOW STRENGTH) 81 mg EC tablet Take 1 tablet by mouth once daily. cholecalciferol (VITAMIN D3) 50 mcg (2,000 unit) tablet Take 2,000 Units by mouth twice daily. escitalopram 20 mg tablet Take 20 mg by mouth once daily. calcium carbonate (CALTRATE) 600 mg calcium (1,500 mg) tab Take 600 mg by mouth two times a day. calcitonin,salmon, (MIACALCIN) 200 unit/actuation nasal spray Inhale as instructed. (Patient not taking: Reported on 12/20/2023) No current facility-administered medications for this visit. I have reviewed and updated the medication list in the EMR. ALLERGIES No Known Allergies Immunization History Administered Date(s) Administered COVID-19 original vaccine, full dose, monovalent (MODERNA) 08/18/2021 COVID-19 vaccine (MIKE) 11/06/2020 diphtheria tetanus (DT) vaccine, pediatric 05/28/1985 influenza (HD-IIV3) vaccine, age 65+ yr, high dose, trivalent, PF (FLUZONE HIGH-DOSE) 05/26/2018 influenza (IIV3) vaccine, age 6 mo - 64 yr, trivalent (AFLURIA, FLULAVAL, FLUVIRIN, FLUZONE) 08/15/2013 06/29/2016 influenza (IIV4) vaccine, age 6 mo - 64 yr, quadrivalent, PF (AFLURIA, FLUARIX, FLULAVAL, FLUZONE) 05/10/2016 07/24/2019 influenza (aIIV3) vaccine, age 65+ yr, trivalent, PF (FLUAD) 06/13/2024 influenza (aIIV4) vaccine, age 65+ yr, quadrivalent, PF (FLUAD QUAD) 06/08/2023 pneumococcal conjugate (PCV20) vaccine, 20 valent (PREVNAR 20) 06/08/2023 zoster (RZV) vaccine, recombinant (SHINGRIX) 06/28/2023 10/11/2023 Objective PHYSICAL EXAMINATION: VITAL SIGNS: BP 144/95 (BP Site: Right Arm, BP Position: Sitting, BP Cuff Size: Large Adult) Pulse 80 Temp 37 C (98.6 F) (Temporal) Resp 18 Ht 175.3 cm (5' 9) Wt 110.2 kg (243 lb) SpO2 96% BMI 35.88 kg/m O2: room air General appearance: well appearing, alert, and in no acute distress HEENT: NCAT. Anicteric sclera. Nares normal, septum midline, mucosa normal, no drainage. Lips, tongue, and buccal mucosa pink and moist without cyanosis. Respiratory: Lungs are clear to auscultation bilaterally without wheezes, rhonchi or rales. Respirations are non-labored without accessory muscle use. Cardiovascular: Regular rate and rhythm no m/r/g Extremities: Warm and well perfused. No peripheral edema. Psych: Cooperative with exam, answers questions appropriately. Neuro: A&O x 3. DATA REVIEW: I have personally reviewed the following: Last CT/CTA Chest/Lungs CT CHEST WO IVCON Exam End: 09/29/2022 2:16 PM (Final result) Narrative: * * *Final Report* * * DATE OF EXAM: Sep 29 2022 2:16PM [facility] [id number] - CT CHEST WO IVCON / PROCEDURE REASON: Pneumonia of right upper lobe due to infectious organism * * * * Physician Interpretation * * * * EXAMINATION: CHEST CT WITHOUT CONTRAST CLINICAL HISTORY: Pneumonia. History of right renal cell carcinoma. Technique: Spiral CT acquisition of the chest from the thoracic inlet to the upper abdomen without contrast. MQ: [id number] CT Radiation dose: Integrated Dose-length product (DLP) for this visit = chest 506 flank 495 mGy*cm CT Dose Reduction Employed: Automated exposure control(AEC) and iterative recon Comparison: CT chest dated June 26, 2022 RESULT: Limitations: None. Lines, tubes, and devices: Left transvenous pacemaker with leads in the right atrium and right ventricle. Lung parenchyma and airways: No consolidation. Numerous bilateral calcified granulomas. No suspicious pulmonary nodule. The central airways are patent. Pleural space: No pleural effusion. No pleural thickening. Lower neck, lymph nodes, and mediastinum: The imaged thyroid gland is normal. Calcified mediastinal and hilar lymph nodes compatible with the sequela of prior granulomatous exposure.. Heart, pericardium, and thoracic vessels: The thoracic aorta and main pulmonary artery are normal in caliber. The cardiac chambers are normal in size. Coronary artery atherosclerotic calcifications are noted, although the study is not optimized for coronary assessment. No pericardial effusion or thickening. Bones and soft tissues: Degenerative changes. Upper abdomen: See separate dictation of CT of abdomen which is reported under separate cover. Clutch Inspector (topogram) images: No additional findings. Impression: IMPRESSION: Sequela of prior granulomatous exposure. Patient Accounts Specialist: PSCB Transcribe Date/Time: Oct 04 2022 4:36P Dictated by : NANCY JEFFERS MD This examination was interpreted and the report reviewed and electronically signed by: NANCY JEFFERS MD on Oct 04 2022 4:39PM EST Last XR Chest - Impression Only XR CHEST 1V FRONTAL Exam End: 02/01/2025 10:18 PM (Final result) Impression: IMPRESSION: Low lung volumes with hazy bibasilar opacities which may represent atelectasis or infection depending on the clinical context. ... Recent Results (from the past 4464 hours) ECHO Collection Time: 02/26/25 10:38 AM Impression CONCLUSIONS: - Technically difficult exam due to body habitus. - Exam indication: Evaluation of known heart failure to guide therapy - The left ventricle is dilated. There is mild left ventricular hypertrophy. Left ventricular systolic function is moderately decreased. EF = 30 5% (visual est.) Definity contrast used for endocardial border detection. Left ventricular diastolic function was not evaluated due to AF. - The right ventricle is normal in size. Right ventricular systolic function is mildly decreased. - The left atrial cavity is mildly dilated. - The right atrial cavity is mildly dilated. - Exam was compared with the prior OUTSIDE echocardiographic exam performed on 12/31/2024 ([facility]). no significant change * * * Final * * * PFT: Last Spirometry SPIROMETRY - BASELINE AND POST DILATOR Collected: 10/04/2022 9:38 AM (Final result) Narrative: [facility] [address] [address] Test Date: 2022-10-04 Pat Name: ALISA HAGAN Department: Room: Gender: Male Research Editor: : 1950 Requested By: Order Number: [id number] Reading MD: Itz Ansari Interpretive Statements PT ID checked birthdate/ last name PSP - Reported test represents best effort and meets ATS standards for Spirometry acceptability. Aerosol Albuterol 0.83% used as bronchodilator IMPRESSION: Spirometry is normal. There is no significant bronchodilator response. Electronically Signed On 10-08-2022 17:58:23 EST by Itz Ansari ID: [id number] Name: ALISA HAGAN Race: White Ht: 70.00 in Wt: 251.00 lbs Age: 72 Gender: Male : 1950 Dx: Secondary pulmonary arterial hypertension Smoking Hx: Non-smoker Doctor: DWIGHT P[place]TMAN Test Date: 10/04/2022 Site: Tech: Aure Conley PRE-BRONCH POST-BRONCH Pre LLN Pred ULN %Pred Post %Pred %Chg SPIROMETRY FVC (L) 3.06 3.15 4.24 5.35 72 3.33 78 6 FEV1 (L) 2.16 2.32 3.21 4.04 67 2.33 72 5 FEV1/FVC 0.71 0.63 0.76 0.88 92 0.70 92 0 PEF L/s (L/sec) 6.68 6.02 8.34 10.65 80 6.39 76 -4 FEF50 (L/sec) 2.16 1.93 4.05 6.17 53 2.52 62 16 FIF50 (L/sec) 3.40 3.56 4 FEF50/FIF50 0.64 90-100 0.71 11 FIVC (L) 2.97 3.19 7 FLE89-94 (L/sec) 1.33 1.06 2.44 4.38 54 1.78 73 33 Time (sec) 10.88 12.48 14 FET PEF (sec) 0.07 0.08 15 CORONA (L) 0.06 0.09 40 Vol Extrap % (%) 2 3 29 Comments: PT ID checked birthdate/ last name PSP - Reported test represents best effort and meets ATS standards for Spirometry acceptability. Aerosol Albuterol 0.83% used as bronchodilator NT Pro BNP Date Value Ref Range Status 06/16/2022 2,154 (H) <125 pg/mL Final [facility] 04/2018: Moderate to severe 2 vessel CAD LVEF 55% RHC 04/2018: RVp 38/8 mmHg RAp 17mmHg PAP 55/19 (35mmHg) PAOP 17 mmHg DP TP CO 4.68 PVR 3.84 KINCAID ASSESSMENT & PLAN: 1. Pulmonary hypertension (HCC) (I27.20) - Combined pre and postcapillary pulmonary hypertension, predominantly precapillary PAH, Group 1 - Last RHC 04/2018: mPAP 35 mmHg, PVR 3.84m - Stable on sildenafil 20 mg BID; previously trialed TID dosing but experienced lightheadedness and did not tolerate. - Continue 40mg PO lasix daily - Low sodium diet - Ordered pulmonary function testing, NT pro BNP, and 6-minute walk test to assess current respiratory status, testing over 2 years old 2. Lung nodules (R91.8) 3. Lymphadenopathy (R59.1) - CT chest from February 01 revealed a 5 mm nodule in the right upper lobe and an enlarged right hilar lymph node. - Ordered repeat CT chest in 3 months to monitor for resolution. 4. HFrEF (heart failure with reduced ejection fraction) (HCC) (I50.20) - Last echocardiogram performed in February, EF 30% - Scheduled to be seen in the heart failure clinic 03/22/25 - Continue 40mg PO lasix daily - Ordered NT-proBNP lab test to be done with next routine lab work. 5. 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 6. Shortness of breath (R06.02) - Exertional dyspnea reported with activities such as walking short distances and climbing stairs. - Nocturnal cough is dry; no wheezing reported. - Ordered pulmonary function testing and 6-minute walk test. 7. Personal history of pulmonary embolism (Z86.711) 8. Antiphospholipid antibody syndrome (HCC) (D68.61) - Continues on Eliquis for anticoagulation. - S/p IVC filter removal in 2022 - Follows with Hem/Onc, Dr. Mcmillan I have discussed the above recommendations in detail with the patient. Patient verbalizes understanding and is in agreement with plan as stated above. Return in about 4 months (around 07/08/2025), or if symptoms worsen or fail to improve. with Dr. Frias Recording using [employer] software for draft documentation of the visit was discussed with the patient/authorized sales representative gas service; all questions welcomed and answered. Patient/authorized sales representative gas service agreed to proceed Smitha Sidhu PA-C March 07, 2025 documented in this encounter [facility] 03-07-2025 Note HNO ID: [id number] Author: SMITHA SIDHU PA-C Service: ? Author Type: Physician Geodetic Advisor Type: Progress Notes Filed: 03/07/2025 10:16 Note Text: DEPARTMENT OF PULMONARY MEDICINE ESTABLISHED PATIENT OFFICE VISIT 03/07/2025 HISTORY OF PRESENT ILLNESS: Alisa Hagan is a 74 year old male who presents today for follow-up regarding pulmonary hypertension. 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 Never smoker. Last saw Dr. Frias 06/23/2023. Most recent pulmonary office visit was on 01/03/25 with Jesenia Arzate CNP. Recommendations from that office visit were as follows: -Continue sildenafil 20 mg BID Was admitted to [facility] from 02/01/2025-02/04/2025 for treatment for CHF exacerbation, pulmonary not consulted this admission. Today, the patient reports he is doing fair since last office visit. Alisa reports the recent discovery of a kidney lesion following a scan ordered during a recent hospitalization. He has an MRI scheduled for 04/05/2023. He also has a history of nephrectomy and renal cancer, and it is noted that something was seen on his remaining kidney. He experiences dyspnea, which has been consistent over the past few years and occurs primarily with exertion, such as walking short distances or climbing a flight of stairs. Despite this, he is able to complete household tasks, albeit at a slower pace. He also reports a dry cough and occasional wheezing. He is currently on sildenafil 20 mg BID for pulmonary hypertension and Eliquis for a history of pulmonary embolism. He previously attempted sildenafil TID but experienced lightheadedness and dizziness, which he notes have been ongoing issues unrelated to the medication. He reports unintentional weight loss of 10-12 lbs and monitors his sodium intake. He also experiences chronic lower extremity edema, which he notes has improved recently. He is on Lasix 40 mg daily but has not been instructed to take an additional dose for increased swelling. He denies any worsening of edema at the end of the day and takes Lasix at variable times. He reports occasional chest pain but denies any recent pulmonary function tests or a 6-minute walk test in the past 2 years. Subjective ROS: Constitutional: (+) weight loss Cardiovascular: (+) chest pain, (+) peripheral edema Respiratory: (+) exertional dyspnea, (+) dry cough, (+) wheezing Neurological: (+) lightheadedness Current Outpatient Medications Medication Sig Dispense Refill OLANZapine (ZYPREXA) 5 mg tablet Take 5 mg by mouth daily at bedtime. fluticasone (FLONASE) 50 mcg/actuation nasal spray Use 2 Sprays in each nostril once daily. Rinse mouth after use. 11.1 mL 0 ELIQUIS 5 mg tab(s) Take 5 mg by mouth two times a day. buPROPion XL (WELLBUTRIN XL) 150 mg 24 hr tablet two times a day. metoprolol succinate ER (TOPROL XL) 25 mg 24 hr tablet Take 50 mg by mouth two times a day. atorvastatin (LIPITOR) 40 mg tablet Take 40 mg by mouth once daily. sildenafil (REVATIO) 20 mg tablet Take 1 tablet by mouth two times a day. 60 tablet 5 furosemide (LASIX) 40 mg tablet Take 40 mg by mouth once daily. finasteride (PROSCAR) 5 mg tablet Take 5 mg by mouth every evening. aspirin, enteric coated (ECOTRIN LOW STRENGTH) 81 mg EC tablet Take 1 tablet by mouth once daily. cholecalciferol (VITAMIN D3) 50 mcg (2,000 unit) tablet Take 2,000 Units by mouth twice daily. escitalopram 20 mg tablet Take 20 mg by mouth once daily. calcium carbonate (CALTRATE) 600 mg calcium (1,500 mg) tab Take 600 mg by mouth two times a day. calcitonin,salmon, (MIACALCIN) 200 unit/actuation nasal spray Inhale as instructed. (Patient not taking: Reported on 12/20/2023) No current facility-administered medications for this visit. I have reviewed and updated the medication list in the EMR. ALLERGIES No Known Allergies Immunization History Administered Date(s) Administered COVID-19 original vaccine, full dose, monovalent (MODERNA) 08/18/2021 COVID-19 vaccine (MIKE) 11/06/2020 diphtheria tetanus (DT) vaccine, pediatric 05/28/1985 influenza (HD-IIV3) vaccine, age 65+ yr, high dose, trivalent, PF (FLUZONE HIGH-DOSE) 05/26/2018 influenza (IIV3) vaccine, age 6 mo - 64 yr, trivalent (AFLURIA, FLULAVAL, FLUVIRIN, FLUZONE) 08/15/2013 06/29/2016 influenza (IIV4) vaccine, age 6 mo - 64 yr, quadrivalent, PF (AFLURIA, FLUARIX, FLULAVAL, FLUZONE) 05/10/2016 07/24/2019 influenza (aIIV3) vaccine, age 65+ yr, trivalent, PF (FLUAD) 06/13/2024 influenza (aIIV4) vaccine, age 65+ yr, quadrivalent, PF (FLUAD QUAD) 06/08/2023 pneumococcal conjugate (PCV20) vaccine, 20 valent (PREVNAR 20) 06/08/2023 zoster (RZV) vaccine, recombinant (SHINGRIX) 06/28/2023 10/11/2023 Obje (more content not included)... [facility] 02-05-2025 Telephone encounter Note Patient was discharged from [facility] 02-04-25 with an order to schedule with the Heart Failure Clinic. The Clinic reached out by phone with no contact. A letter was mailed to the patient asking them to contact the Clinic to schedule an appointment. [facility] 02-05-2025 Miscellaneous Notes Patient was discharged from [facility] 02-04-25 with an order to schedule with the Heart Failure Clinic. The Clinic reached out by phone with no contact. A letter was mailed to the patient asking them to contact the Clinic to schedule an appointment. documented in this encounter [facility] 02-04-2025 Note HNO ID: [id number] Author: JOBY MEDEIROS RPh Service: Pharmacy Author Type: Pharmacist Type: Plan of Care Filed: 02/04/2025 13:30 Note Text: DISCHARGE MEDICATION REVIEW BY PHARMACY Patient Name: Alisa Hagan Account #: Data Unavailable Admission Date: 02/01/2025 Date of Contact: February 04, 2025 Time of Contact: 1:30 PM Medication list was reviewed by a Pharmacist for drug interactions or drug related problems:Yes Below is a summary of pharmacist recommendations discussed with LIP: No recommendations at this time from discharge medication list. Joby Medeiros RPh 02/04/2025 1:30 PM Medication List CONTINUE taking these medications aspirin, enteric coated 81 mg EC tablet Commonly known as: ECOTRIN LOW STRENGTH Take 1 tablet by mouth once daily. buPROPion XL 150 mg 24 hr tablet Commonly known as: WELLBUTRIN XL calcitonin(salmon) 200 unit/actuation nasal spray Commonly known as: MIACALCIN calcium carbonate 600 mg calcium (1,500 mg) Tab Commonly known as: CALTRATE cholecalciferol 50 mcg (2,000 unit) tablet Commonly known as: VITAMIN D3 ELIQUIS 5 mg tab(s) Generic drug: apixaban escitalopram oxalate 20 mg tablet Commonly known as: LEXAPRO finasteride 5 mg tablet Commonly known as: PROSCAR fluticasone 50 mcg/actuation nasal spray Commonly known as: FLONASE Use 2 Sprays in each nostril once daily. Rinse mouth after use. furosemide 40 mg tablet Commonly known as: LASIX LIPITOR 40 mg tablet Generic drug: atorvastatin metoprolol succinate ER 25 mg 24 hr tablet Commonly known as: TOPROL XL OLANZapine 5 mg tablet Commonly known as: ZYPREXA sildenafil 20 mg tablet Commonly known as: REVATIO Take 1 tablet by mouth two times a day. [facility] 02-04-2025 Note HNO ID: [id number] Author: TAMARA MARTINEZ RN Service: Care Management Author Type: Registered Nurse Type: Care Mgt Initial Assessment Filed: 02/04/2025 10:28 Note Text: CARE MANAGEMENT: ASSESSMENT AND DISCHARGE PLAN SERVICE DATE: February 04, 2025 SERVICE TIME: 10:26 AM PCP: Smitha Ray IV, DO Primary Contact: Extended Emergency Contact Information Primary Emergency Contact: Sandie Boyd Mobile Relation: Daughter Secondary Emergency Contact: Mello Hagan Mobile Relation: Son Admission Status: Inpatient Insurance Provider: MEDICARE A AND B Discharge Planning requested by: Per Department Practice Potential Transition Plans Home Advance Directives Current Advance Directive: Health Care Power of Medical Transcription Radiology, Living Will In Chart: Yes Up To Date and Valid: Yes Current Living Arrangements and Support Lives with: Alone Type of Residence: Private Residence (House) Does the patient have to climb stairs at home?: Yes Support: Family members, Friends/neighbors How do you manage to accomplish the following: Independent: Ambulation, Bathe/Shower, Meals/Meal Prep, Going to the bathroom, Dress, Medication Management, Transportation to appointments/community Current Services/Equipment Current Post-Acute Service(s): None Discharge Planning Patient Goal(s): Increase strength, General wellness, Be able to go home [place] Explained: [place] Given: No Reason Not Given: No placements necessary Are you interested in bedside delivery of your medications? No Discharge Planning Participant(s): Patient Patient/Family Comments: Caregiver Assessment: Caregiver is ready, willing and able to meet the patient's needs as recommended by the inter-professional team: Yes Name of Caregiver: family Transport at Discharge: Transportation Arrangements: Car Needs Prior to Discharge: Needs Prior to Discharge: To Be Determined Post-Acute Discharge Plan: Spoke with patient at bedside. Pt is from home alone, family near if needed, +PCP, -DME, +RX, pt independent [employer]. Pt has cardio and nephro following, went for a heart cath today. Anticipate home once medically ready. Family to transport. CM to follow clinical progress. SIGNATURE: Tamara Martinez RN PATIENT NAME: Alisa Hagan DATE: February 04, 2025 TIME: 10:26 AM [facility] 02-04-2025 Note HNO ID: [id number] Author: TAMARA MARTINEZ RN Service: Care Management Author Type: Registered Nurse Type: Care Mgt Progress Note Filed: 02/04/2025 10:24 Note Text: CARE MANAGEMENT PROGRESS NOTE SERVICE DATE: 02/04/2025 SERVICE TIME: 10:24 AM LOS: 3 days IMM Follow Up Copy Given: Yes Copy given to:: Patient Method: In Person SIGNATURE: Tamara Martinez RN PATIENT NAME: Alisa Hagan DATE: February 04, 2025 TIME: 10:24 AM [facility] 02-04-2025 Note HNO ID: [id number] Author: NOLA REARDON MD Service: Nephrology Author Type: Nurse Practitioner Type: Progress Notes Filed: 02/04/2025 12:39 Note Text: Attestation signed by Nola Reardon MD at 02/04/2025 12:39 PM NEPHROLOGY STAFF PHYSICIAN NOTE OF PERSONAL INVOLVEMENT IN CARE AND VISIT ATTESTATION I have seen the patient face to face and reviewed the history and physical examination obtained and documented by Charissa Hines APRN.CNP. I personally participated in the cody components. I have discussed the case and management of the patient's care. Agree with the findings, assessment and plan of care below. Amendments, if present, are entered in the note and/or detailed below. 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 Nola Reardon M.D Nephrology Progress Note Following for CKD No new events overnight Denies CP some SOB No N/VD No fever or chills BP on the higher side Current Inpatient Medications: heparin iv infusion 25,000 units in NaCl 0.45% 250 mL LOW DOSE/ACS NOMOGRAM, 0-3,000 Units/hr, INTRAVENOUS, CONTINUOUS, Seth Alexander MD, Last Rate: 9 mL/hr at 02/04/25 0724, 900 Units/hr at 02/04/25723 And heparin RATE CHANGE bolus 1,000-4,000 Units for subtherapeutic PTTAC results, 1,000-4,000 Units, INTRAVENOUS, PRN, Seth Alexander MD, 3,400 Units at 02/04/25 0051 escitalopram oxalate 20 mg tab(s) (LEXAPRO), 20 mg, ORAL, DAILY, Hali Reardon MD, 20 mg at 02/03/25834 aspirin, enteric coated 81 mg tab(s), 81 mg, ORAL, DAILY, Hali Reardon MD, 81 mg at 02/03/25834 finasteride 5 mg tab(s) (PROSCAR), 5 mg, ORAL, AT BEDTIME, Hali Reardon MD, 5 mg at 02/03/252108 furosemide 40 mg tab(s) (LASIX), 40 mg, ORAL, DAILY, Hali Reardon MD, 40 mg at 02/03/25834 sildenafil 20 mg tab(s) (REVATIO), 20 mg, ORAL, BID, Hali Reardon MD, 20 mg at 02/03/252106 atorvastatin 40 mg tab(s) (LIPITOR), 40 mg, ORAL, DAILY, Hali Reardon MD, 40 mg at 02/03/25834 buPROPion XL 150 mg tab(s) (WELLBUTRIN XL), 150 mg, ORAL, BID, Hali Reardon MD, 150 mg at 02/03/252106 metoprolol succinate ER 50 mg tab(s) (TOPROL XL), 50 mg, ORAL, BID, Hali Reardon MD, 50 mg at 02/03/252108 OLANZapine 5 mg tab(s) (ZYPREXA), 5 mg, ORAL, AT BEDTIME, Hali Reardon MD, 5 mg at 02/03/252106 acetaminophen 650 mg tab(s) (TYLENOL), 650 mg, ORAL, q 6 H PRN, Hali Reardon MD melatonin 1 mg tab(s), 1 mg, ORAL, DAILY (8 PM), Hali Reardon MD NaCl 0.9% iv flush bag, 20 mL, INTRAVENOUS, PRN, Hali Reardon MD sodium chloride 0.9 % (flush) 2-10 mL (BD POSIFLUSH), 2-10 mL, INTRAVENOUS, DIRECTED PRN, Hali Reardon MD And perflutren lipid microspheres 1.1 mg/mL 1.3 mL injection (DEFINITY), 1.3 mL, INTRAVENOUS, DIRECTED PRN, Hali Reardon MD dextrose 15 gram/32 mL 15 g (TRUEPLUS), 15 g, ORAL, PRN, Hali Reardon MD Or glucagon 1 mg injection, 1 mg, INTRAMUSCULAR, PRN, Hali Reardon MD Or dextrose 10% iv bolus, 12.5 g, INTRAVENOUS, PRN, Hali Reardon MD insulin lispro injection (rapid acting) (ADMElog), , SUBCUTANEOUS, w MEALS, Hali Reardon MD, 2 Units at 02/03/25 1332 prochlorperazine 5 mg injection (COMPAZINE), 5 mg, INTRAVENOUS, q 6 H PRN, Smitha Henning PA-C No current [facility]-ordered outpatient medications on file. Vitals: BP 156/106 Pulse 90 Temp 36.7 ?C (98 ?F) (Oral) Resp 17 Ht 175.3 cm (5' 9) Wt 111 kg (244 lb 11.4 oz) SpO2 98% BMI 36.14 kg/m? BLOOD PRESSURE RANGE: Systolic (24hrs), Av , Min:112 , Max:148 ; Diastolic (24hrs), Av, Min:62, Max:80 24HR INTAKE/OUTPUT: Intake/Output Summary (Last 24 hours) at 02/04/2025 07 Last data filed at 02/03/2025 2113 Gross per 24 hour Intake 300 ml Output 800 ml Net -500 ml Physical exam: Constitutional: NAD Skin: turgor wnl Cardiovascular: Normal S1, S2 Respiratory: CTAB Abdomen: +bs, soft, nt Ext: no lower extremity edema Data: Labs: Recent Labs 02/04/25 0646 02/03/25 0515 02/02/25 0328 WBC 10.24 7.86 8.86 HB 15.8 14.8 14.5 HCT 49.8 44.6 44.1 MCV 93.4 89.7 90.4 PLT 174 148* 151 Recent Labs 02/03/25 0515 02/02/25 0328 02/01/25 1014 NA 139 139 137 K 4.1 4.4 4.9 CO2 26 27 23 MG 2.2 -- -- BUN 40* 4 (more content not included)... [facility] 02-03-2025 Note HNO ID: [id number] Author: REAL PALOMINO MD Service: Cardiovascular Medicine Author Type: Physician Type: Progress Notes Filed: 02/03/2025 14:43 Note Text: PROGRESS NOTE CARDIOLOGY SERVICE SERVICE DATE: 02/03/2025 SERVICE TIME: 2:41 PM Subjective INTERIM HISTORY: Telemetry reviewed. No new complaints. CARDIAC STATUS: Chest Pain: Improved Dyspnea: Improved Ankle Edema: Improved Arrhythmia: Improved Functional Capacity: Improved Objective PHYSICAL EXAM: Body mass index is 37.35 kg/m?. O2 Therapy: Room Air No data recorded Patient Vitals for the past 24 hrs: BP Temp Temp src Pulse Resp SpO2 02/03/25 1346 139/88 -- -- 90 20 97 % 02/03/25 1107 120/73 36.5 ?C (97.7 ?F) -- 100 -- 96 % 02/03/25 0730 142/92 36.4 ?C (97.5 ?F) Oral 87 19 96 % 02/03/25 0319 112/62 -- -- 74 17 92 % 02/02/25 2219 128/80 36.7 ?C (98 ?F) Oral 89 -- 95 % 02/02/25 1919 143/79 36.6 ?C (97.9 ?F) Oral 88 16 96 % 02/02/25 1628 125/76 36.8 ?C (98.3 ?F) Oral 77 17 94 % Pleasant, comfortable, not in acute distress. Awake, alert, oriented times 3. Moves all extremities. SKIN: No rash or lumps. HEENT: Normocephalic, face symmetrical. NECK: Supple, no JVD, no carotid bruit, no thyromegaly. LUNGS: Clear to auscultation bilaterally. CARDIAC: PMI present, RRR, S1 and S2, no S3 or S4, no additional heart sounds or murmurs. ABDOMEN: Soft, nontender, bowel sounds present. EXTREMITIES: No edema. PULSES: Peripheral pulses present. MEDICATIONS: Current Facility-Administered Medications Medication Dose Route Frequency escitalopram oxalate 20 mg tab(s) (LEXAPRO) 20 mg ORAL DAILY aspirin, enteric coated 81 mg tab(s) 81 mg ORAL DAILY finasteride 5 mg tab(s) (PROSCAR) 5 mg ORAL AT BEDTIME furosemide 40 mg tab(s) (LASIX) 40 mg ORAL DAILY sildenafil 20 mg tab(s) (REVATIO) 20 mg ORAL BID atorvastatin 40 mg tab(s) (LIPITOR) 40 mg ORAL DAILY buPROPion XL 150 mg tab(s) (WELLBUTRIN XL) 150 mg ORAL BID metoprolol succinate ER 50 mg tab(s) (TOPROL XL) 50 mg ORAL BID OLANZapine 5 mg tab(s) (ZYPREXA) 5 mg ORAL AT BEDTIME acetaminophen 650 mg tab(s) (TYLENOL) 650 mg ORAL q 6 H PRN melatonin 1 mg tab(s) 1 mg ORAL DAILY (8 PM) NaCl 0.9% iv flush bag 20 mL INTRAVENOUS PRN sodium chloride 0.9 % (flush) 2-10 mL (BD POSIFLUSH) 2-10 mL INTRAVENOUS DIRECTED PRN And perflutren lipid microspheres 1.1 mg/mL 1.3 mL injection (DEFINITY) 1.3 mL INTRAVENOUS DIRECTED PRN dextrose 15 gram/32 mL 15 g (TRUEPLUS) 15 g ORAL PRN Or glucagon 1 mg injection 1 mg INTRAMUSCULAR PRN Or dextrose 10% iv bolus 12.5 g INTRAVENOUS PRN insulin lispro injection (rapid acting) (ADMElog) SUBCUTANEOUS w MEALS prochlorperazine 5 mg injection (COMPAZINE) 5 mg INTRAVENOUS q 6 H PRN heparin iv infusion 25,000 units in NaCl 0.45% 250 mL LOW DOSE/ACS NOMOGRAM 0-3,000 Units/hr INTRAVENOUS CONTINUOUS And heparin RATE CHANGE bolus 1,000-4,000 Units for subtherapeutic PTTAC results 1,000-4,000 Units INTRAVENOUS PRN DATA: Diagnostic tests reviewed for today's visit: Most recent labs and imaging results. Past 72 Hour Labs: Recent Labs 02/03/25 1200 02/03/25 0515 02/02/25 1620 02/02/25 1035 02/02/25 0328 02/01/25 1042 02/01/25 1014 CRP -- -- -- -- <0.3 -- -- WBC -- 7.86 -- -- 8.86 -- 8.68 RBC -- 4.97 -- -- 4.88 -- 4.95 HB -- 14.8 -- -- 14.5 -- 14.8 HCT -- 44.6 -- -- 44.1 -- 45.7 MCV -- 89.7 -- -- 90.4 -- 92.3 MCH -- 29.8 -- -- 29.7 -- 29.9 MCHC -- 33.2 -- -- 32.9 -- 32.4 RDWCV -- 13.8 -- -- 13.9 -- 13.5 PLT -- 148* -- -- 151 -- 153 MPV -- 9.8 -- -- 10.1 -- 9.7 NEUTP -- -- -- -- -- -- 77.2 LYMPHP -- -- -- -- -- -- 12.1 MONOP -- -- -- -- -- -- 8.3 EODINP -- -- -- -- -- -- 2.0 BASOP -- -- -- -- -- -- 0.3 ABSNEUT -- -- -- -- -- -- 6.70 ABSMONO -- -- -- -- -- -- 0.72 ABSEOSIN -- -- -- -- -- -- 0.17 ABSBASO -- -- -- -- -- -- 0.03 GLUC -- 116* -- -- 116* -- 139* BUN -- 40* -- -- 42* -- 44* CREAT -- 1.86* -- -- 1.99* -- 1.94* NA -- 139 -- -- 139 -- 137 K -- 4.1 -- -- 4.4 -- 4.9 CHLOR -- 103 -- -- 102 -- 107 CO2 -- 26 -- -- 27 -- 23 TPROT -- -- -- -- -- -- 6.8 ALB -- -- -- -- -- -- 3.9 CA -- 8.6 -- -- 8.5 -- 8.8 ALKPHOS -- -- -- -- -- -- 79 TBILI -- -- -- -- -- -- 1.5* AST -- -- -- -- -- -- 28 ALT -- -- -- -- -- -- 31 PTSEC -- -- -- 12.4 -- < > -- APTT 39.0* 128.6* < > 29.6 -- -- -- INR -- -- -- 1.2 -- < > -- MG -- 2.2 -- -- -- -- -- < > = values in this interval not displayed. Last Lab Drawn: TSH 2.000 11/28/2024 Triglyceride 148 11/28/2024 HDL Cholesterol 56 11/28/2024 LDL Cholesterol, Calculated 67 11/28/2024 Cholesterol, Total 153 11/28/2024 Assessment/Plan Principal Problem: Acute on chronic systolic CHF (congestive heart failure) ([facility]) (POA: Yes) Assessment AND Plan: - Clinically appears warm and euvolemic. Not on any oxygen. Needs ischemic workup. Upon extensive discussion with the patient, son and son-in-law, they are agreeable to proceed with left a (more content not included)... [facility] 02-03-2025 Note HNO ID: [id number] Author: SETH ALEXANDER MD Service: Hospital Medicine Author Type: Physician Type: Progress Notes Filed: 02/03/2025 16:45 Note Text: DEPARTMENT OF HOSPITAL MEDICINE Hospital Medicine/Primary Attending: Seth Alexander MD NIGHT AND WEEKEND COVERAGE: After 7pm please page [phone] No complaints voiced. Plan for LHC tomorrow with NPO after MN. Will start on cautious LR 50cc/hr this evening, 6pm MEDICATIONS: Current Facility-Administered Medications Medication Dose Route Frequency escitalopram oxalate 20 mg tab(s) (LEXAPRO) 20 mg ORAL DAILY aspirin, enteric coated 81 mg tab(s) 81 mg ORAL DAILY finasteride 5 mg tab(s) (PROSCAR) 5 mg ORAL AT BEDTIME furosemide 40 mg tab(s) (LASIX) 40 mg ORAL DAILY sildenafil 20 mg tab(s) (REVATIO) 20 mg ORAL BID atorvastatin 40 mg tab(s) (LIPITOR) 40 mg ORAL DAILY buPROPion XL 150 mg tab(s) (WELLBUTRIN XL) 150 mg ORAL BID metoprolol succinate ER 50 mg tab(s) (TOPROL XL) 50 mg ORAL BID OLANZapine 5 mg tab(s) (ZYPREXA) 5 mg ORAL AT BEDTIME acetaminophen 650 mg tab(s) (TYLENOL) 650 mg ORAL q 6 H PRN melatonin 1 mg tab(s) 1 mg ORAL DAILY (8 PM) NaCl 0.9% iv flush bag 20 mL INTRAVENOUS PRN sodium chloride 0.9 % (flush) 2-10 mL (BD POSIFLUSH) 2-10 mL INTRAVENOUS DIRECTED PRN And perflutren lipid microspheres 1.1 mg/mL 1.3 mL injection (DEFINITY) 1.3 mL INTRAVENOUS DIRECTED PRN dextrose 15 gram/32 mL 15 g (TRUEPLUS) 15 g ORAL PRN Or glucagon 1 mg injection 1 mg INTRAMUSCULAR PRN Or dextrose 10% iv bolus 12.5 g INTRAVENOUS PRN insulin lispro injection (rapid acting) (ADMElog) SUBCUTANEOUS w MEALS prochlorperazine 5 mg injection (COMPAZINE) 5 mg INTRAVENOUS q 6 H PRN heparin iv infusion 25,000 units in NaCl 0.45% 250 mL LOW DOSE/ACS NOMOGRAM 0-3,000 Units/hr INTRAVENOUS CONTINUOUS And heparin RATE CHANGE bolus 1,000-4,000 Units for subtherapeutic PTTAC results 1,000-4,000 Units INTRAVENOUS PRN DATA: Diagnostic tests reviewed for today's visit: Lab data: CBC: Recent Labs 02/03/25 0515 02/02/25 03202/01/25 1014 WBC 7.86 8.86 8.68 HB 14.8 14.5 14.8 HCT 44.6 44.1 45.7 PLT 148* 151 153 MCV 89.7 90.4 92.3 RDWCV 13.8 13.9 13.5 NEUTP -- -- 77.2 ABSNEUT -- -- 6.70 LYMPHP -- -- 12.1 MONOP -- -- 8.3 EODINP -- -- 2.0 COAG: Recent Labs 02/03/25 0515 02/02/25 2222 02/02/25 1620 02/02/25 1035 02/01/25 1042 APTT 128.6* 47.4* 37.0* 29.6 -- INR -- -- -- 1.2 1.2 BMP: Recent Labs 02/03/25 0515 02/02/25 0328 02/01/25 1014 GLUC 116* 116* 139* NA 139 139 137 K 4.1 4.4 4.9 CHLOR 103 102 107 CO2 26 27 23 ANION 10 10 7* BUN 40* 42* 44* CREAT 1.86* 1.99* 1.94* CHEM: Recent Labs 02/03/25 0515 02/02/25 0328 02/01/25 1014 ALB -- -- 3.9 TPROT -- -- 6.8 CA 8.6 8.5 8.8 MG 2.2 -- -- HEPATIC: Recent Labs 02/01/25 1014 ALKPHOS 79 ALT 31 AST 28 TBILI 1.5* URINALYSIS: Recent Labs 02/01/25 2129 SPGR 1.015 UGLUC Negative UBILI Negative UKET Negative UHB Negative UPROT Negative UWBC 0-5 /HPF CARDIAC: No results for input(s): PBNP in the last 168 hours. Problem List Acute on chronic systolic CHF (congestive heart failure) (HCC) (POA: Yes) Persistent atrial fibrillation (HCC) (POA: Yes) HTN (hypertension) (POA: Yes) Hyperlipidemia (POA: Yes) Class 2 severe obesity due to excess calories with serious comorbidity and body mass index (BMI) of 38.0 to 38.9 in adult (HCC) (POA: Yes) Pulmonary HTN (HCC) (POA: Yes) CTEPH (chronic thromboembolic pulmonary hypertension) (HCC) (POA: Yes) Coronary artery disease involving [place] coronary artery of [place] heart without angina pectoris (POA: Yes) Depressive disorder (POA: Yes) Diabetes mellitus (HCC) (POA: Yes) Antiphospholipid antibody syndrome (HCC) (POA: Yes) Stage 3 chronic kidney disease (HCC) (POA: Yes) PHYSICAL EXAM: BP 142/92 Pulse 87 Temp (Src) 97.5 (Oral) Resp 19 Ht 5' 9 (1.75m) Wt 252 lb 14.4 oz (114.7kg) SpO2 96% BMI 37.33 kg/(m2). O2 Therapy: Room Air Follow up : Pt seen and examined. Constitutional - Vitals as above, NAD Respiratory - Clear to auscultate both sides. No crackles, wheezes or rales, No labored breathing noted CVS- RRR, no murmur/gallop/rub, pulse 2+ GI- NTND, bowel sounds normally heard HOSPITAL COURSE: 74 year old male with history of solitary kidney secondary to renal cell cancer status post nephrectomy, stage III chronic kidney disease, type 2 diabetes mellitus, persistent atrial fibrillation, obesity BMI 37, acute on chronic systolic congestive heart failure left ventricular ejection fraction 25% transferred from [place] [facility] for acute on chronic congestive heart failure Nephrology is consulted for farideh on stage 3 ckd. Maintains compliance to medications and low-sodium/fluid restricted diet. Does not do daily weights. He notes that Dr. Jaeger has wanted him to do a left heart cath but he is concerned due to his PE history and contrast (more content not included)... [facility] 02-03-2025 Note HNO ID: [id number] Author: LEIA BRAY MD Service: Nephrology Author Type: Nurse Practitioner Type: Progress Notes Filed: 02/03/2025 11:57 Note Text: Attestation signed by Leia Bray MD at 02/03/2025 11:57 AM I have personally seen and examined the patient. I agree with assessment and the plan by Charissa Hines APRN.[employer] Nephrology Progress Note Following for CKD No new events overnight Denies CP some SOB No N/VD No fever or chills BP stable Current Inpatient Medications: heparin iv infusion 25,000 units in NaCl 0.45% 250 mL LOW DOSE/ACS NOMOGRAM, 0-3,000 Units/hr, INTRAVENOUS, CONTINUOUS, Seth Alexander MD, Last Rate: 9 mL/hr at 02/03/25 0719, 900 Units/hr at 02/03/25 0719 And heparin RATE CHANGE bolus 1,000-4,000 Units for subtherapeutic PTTAC results, 1,000-4,000 Units, INTRAVENOUS, PRN, Seth Alexander MD, 3,400 Units at 02/02/25 2303 escitalopram oxalate 20 mg tab(s) (LEXAPRO), 20 mg, ORAL, DAILY, Hali Reardon MD, 20 mg at 02/02/25 1028 aspirin, enteric coated 81 mg tab(s), 81 mg, ORAL, DAILY, Hali Reardon MD, 81 mg at 02/02/25 1028 finasteride 5 mg tab(s) (PROSCAR), 5 mg, ORAL, AT BEDTIME, Hali Reardon MD, 5 mg at 02/02/252025 furosemide 40 mg tab(s) (LASIX), 40 mg, ORAL, DAILY, Hali Reardon MD, 40 mg at 02/02/251027 sildenafil 20 mg tab(s) (REVATIO), 20 mg, ORAL, BID, Hali Reardon MD, 20 mg at 02/02/252024 atorvastatin 40 mg tab(s) (LIPITOR), 40 mg, ORAL, DAILY, Hali Reardon MD, 40 mg at 02/02/251027 buPROPion XL 150 mg tab(s) (WELLBUTRIN XL), 150 mg, ORAL, BID, Hali Reardon MD, 150 mg at 02/02/252024 metoprolol succinate ER 50 mg tab(s) (TOPROL XL), 50 mg, ORAL, BID, Hali Reardon MD, 50 mg at 02/02/252025 OLANZapine 5 mg tab(s) (ZYPREXA), 5 mg, ORAL, AT BEDTIME, Hali Reardon MD, 5 mg at 02/02/252025 acetaminophen 650 mg tab(s) (TYLENOL), 650 mg, ORAL, q 6 H PRN, Hali Reardon MD melatonin 1 mg tab(s), 1 mg, ORAL, DAILY (8 PM), Hali Reardon MD NaCl 0.9% iv flush bag, 20 mL, INTRAVENOUS, PRN, Hali Reardon MD sodium chloride 0.9 % (flush) 2-10 mL (BD POSIFLUSH), 2-10 mL, INTRAVENOUS, DIRECTED PRNMima Doris, MD And perflutren lipid microspheres 1.1 mg/mL 1.3 mL injection (DEFINITY), 1.3 mL, INTRAVENOUS, DIRECTED PRNMima Doris, MD dextrose 15 gram/32 mL 15 g (TRUEPLUS), 15 g, ORAL, PRN, Hali Reardon MD Or glucagon 1 mg injection, 1 mg, INTRAMUSCULAR, PRN, Hali Reardon MD Or dextrose 10% iv bolus, 12.5 g, INTRAVENOUS, PRN, Hali Reardon MD insulin lispro injection (rapid acting) (ADMElog), , SUBCUTANEOUS, w MEALS, Hali Reardon MD, 1 Units at 02/02/25 1326 prochlorperazine 5 mg injection (COMPAZINE), 5 mg, INTRAVENOUS, q 6 H PRN, Smitha Henning PA-C No current [facility]-ordered outpatient medications on file. Vitals: BP 112/62 Pulse 74 Temp 36.7 ?C (98 ?F) (Oral) Resp 17 Ht 175.3 cm (5' 9) Wt 114.7 kg (252 lb 14.4 oz) SpO2 92% BMI 37.35 kg/m? BLOOD PRESSURE RANGE: Systolic (24hrs), Av , Min:112 , Max:148 ; Diastolic (24hrs), Av, Min:62, Max:80 24HR INTAKE/OUTPUT: Intake/Output Summary (Last 24 hours) at 02/03/2025725 Last data filed at 02/02/20252019 Gross per 24 hour Intake 200 ml Output -- Net 200 ml Physical exam: Constitutional: NAD Skin: turgor wnl Cardiovascular: Normal S1, S2 Respiratory: CTAB Abdomen: +bs, soft, nt Ext: no lower extremity edema Data: Labs: Recent Labs 02/03/25 0515 02/02/25 0328 02/01/25 1014 WBC 7.86 8.86 8.68 HB 14.8 14.5 14.8 HCT 44.6 44.1 45.7 MCV 89.7 90.4 92.3 PLT 148* 151 153 Recent Labs 02/03/25 0515 02/02/25 0328 02/01/25 1014 NA 139 139 137 K 4.1 4.4 4.9 CO2 26 27 23 MG 2.2 -- -- BUN 40* 42* 44* CREAT 1.86* 1.99* 1.94* CA 8.6 8.5 8.8 Assessment and Plan: 74 year old male with history of solitary kidney secondary to renal cell cancer status post nephrectomy, stage III chronic kidney disease, type 2 diabetes mellitus, persistent atrial fibrillation, obesity BMI 37, acute on chronic systolic congestive heart failure left ventricular ejection fraction 25% transferred from [place] [facility] for acute on chronic congestive heart failure after presenting there with exertional dyspnea. Nephrology is consulted for farideh on stage 3 ckd. CKD3b. SCr baseline about 1.7-1.8 mg/dL from 05/2024 Takes Diuretics at home. Admission Scr was 1.94 mg/dL - Scr stable at 1.86 mg/dL with diuretics - on lasix 40 mg - no contrast exposure - no signs of obstructive Acid base - compensated Electrolytes - stable ACHF left ventricular ejection fraction 25% - on lasix 40 mg daily - weight daily - management per primary team Plan - Cr at baseline despite diuretic, no need for further work up unless Cr worsen (more content not included)... [facility] 02-02-2025 Note HNO ID: [id number] Author: SETH ALEXANDER MD Service: Hospital Medicine Author Type: Physician Type: Progress Notes Filed: 02/02/2025 14:08 Note Text: DEPARTMENT OF HOSPITAL MEDICINE Hospital Medicine/Primary Attending: Seth Alexander MD NIGHT AND WEEKEND COVERAGE: After 7pm please page [phone] Pt with son-in-law at bedside. Stated he is awaiting to have family discussion with cardiology this noon. No symptoms complaint this time. Started heparin, communicated with Intervention Cardio. MEDICATIONS: Current Facility-Administered Medications Medication Dose Route Frequency escitalopram oxalate 20 mg tab(s) (LEXAPRO) 20 mg ORAL DAILY aspirin, enteric coated 81 mg tab(s) 81 mg ORAL DAILY finasteride 5 mg tab(s) (PROSCAR) 5 mg ORAL AT BEDTIME furosemide 40 mg tab(s) (LASIX) 40 mg ORAL DAILY sildenafil 20 mg tab(s) (REVATIO) 20 mg ORAL BID atorvastatin 40 mg tab(s) (LIPITOR) 40 mg ORAL DAILY buPROPion XL 150 mg tab(s) (WELLBUTRIN XL) 150 mg ORAL BID metoprolol succinate ER 50 mg tab(s) (TOPROL XL) 50 mg ORAL BID OLANZapine 5 mg tab(s) (ZYPREXA) 5 mg ORAL AT BEDTIME acetaminophen 650 mg tab(s) (TYLENOL) 650 mg ORAL q 6 H PRN melatonin 1 mg tab(s) 1 mg ORAL DAILY (8 PM) NaCl 0.9% iv flush bag 20 mL INTRAVENOUS PRN sodium chloride 0.9 % (flush) 2-10 mL (BD POSIFLUSH) 2-10 mL INTRAVENOUS DIRECTED PRN And perflutren lipid microspheres 1.1 mg/mL 1.3 mL injection (DEFINITY) 1.3 mL INTRAVENOUS DIRECTED PRN apixaban 5 mg tab(s) (ELIQUIS) 5 mg ORAL BID dextrose 15 gram/32 mL 15 g (TRUEPLUS) 15 g ORAL PRN Or glucagon 1 mg injection 1 mg INTRAMUSCULAR PRN Or dextrose 10% iv bolus 12.5 g INTRAVENOUS PRN insulin lispro injection (rapid acting) (ADMElog) SUBCUTANEOUS w MEALS prochlorperazine 5 mg injection (COMPAZINE) 5 mg INTRAVENOUS q 6 H PRN DATA: Diagnostic tests reviewed for today's visit: Lab data: CBC: Recent Labs 02/02/25 0328 02/01/25 1014 WBC 8.86 8.68 HB 14.5 14.8 HCT 44.1 45.7 PLT 151 153 MCV 90.4 92.3 RDWCV 13.9 13.5 NEUTP -- 77.2 ABSNEUT -- 6.70 LYMPHP -- 12.1 MONOP -- 8.3 EODINP -- 2.0 COAG: Recent Labs 02/01/25 1042 INR 1.2 BMP: Recent Labs 02/02/25 0328 02/01/25 1014 GLUC 116* 139* NA 139 137 K 4.4 4.9 CHLOR 102 107 CO2 27 23 ANION 10 7* BUN 42* 44* CREAT 1.99* 1.94* CHEM: Recent Labs 02/02/25 0328 02/01/25 1014 ALB -- 3.9 TPROT -- 6.8 CA 8.5 8.8 HEPATIC: Recent Labs 02/01/25 1014 ALKPHOS 79 ALT 31 AST 28 TBILI 1.5* URINALYSIS: Recent Labs 02/01/25 2129 SPGR 1.015 UGLUC Negative UBILI Negative UKET Negative UHB Negative UPROT Negative UWBC 0-5 /HPF CARDIAC: No results for input(s): PBNP in the last 168 hours. Problem List Acute on chronic systolic CHF (congestive heart failure) (HCC) (POA: Yes) Persistent atrial fibrillation (HCC) (POA: Yes) HTN (hypertension) (POA: Yes) Hyperlipidemia (POA: Yes) Class 2 severe obesity due to excess calories with serious comorbidity and body mass index (BMI) of 38.0 to 38.9 in adult (HCC) (POA: Yes) Pulmonary HTN (HCC) (POA: Yes) CTEPH (chronic thromboembolic pulmonary hypertension) (HCC) (POA: Yes) Coronary artery disease involving [place] coronary artery of [place] heart without angina pectoris (POA: Yes) Depressive disorder (POA: Yes) Diabetes mellitus (HCC) (POA: Yes) Antiphospholipid antibody syndrome (HCC) (POA: Yes) Stage 3 chronic kidney disease (HCC) (POA: Yes) PHYSICAL EXAM: BP 137/73 Pulse 80 Temp (Src) 96.8 (Temporal) Resp 18 Ht 5' 9 (1.75m) Wt 252 lb 14.4 oz (114.7kg) SpO2 96% BMI 37.33 kg/(m2). O2 Therapy: Room Air Follow up : Pt seen and examined. Constitutional - Vitals as above, NAD Respiratory - Clear to auscultate both sides. No crackles, wheezes or rales, No labored breathing noted CVS- RRR, no murmur/gallop/rub, pulse 2+ GI- NTND, bowel sounds normally heard Morbid Obesity Class 3 HOSPITAL COURSE: 74 year old male with history of solitary kidney secondary to renal cell cancer status post nephrectomy, stage III chronic kidney disease, type 2 diabetes mellitus, persistent atrial fibrillation, obesity BMI 37, acute on chronic systolic congestive heart failure left ventricular ejection fraction 25% transferred from [place] ED for acute on chronic congestive heart failure Nephrology is consulted for farideh on stage 3 ckd. Maintains compliance to medications and low-sodium/fluid restricted diet. Does not do daily weights. He notes that Dr. Jaeger has wanted him to do a left heart cath but he is concerned due to his PE history and contrast use. Acute on chronic systolic CHF (congestive heart failure) left ventricular ejection fraction 25% (HCC) Received iv lasix in emergency department. Took oral lasix 40mg home dose already. Near euvolemic. Given acute kidney injury, hold diuresis today. Lasix 40mg PO every day Daily weights. Monitor I/Os. Trend BMP. Replete nataliia (more content not included)... [facility] 02-01-2025 Note HNO ID: [id number] Author: SMITHA HENNING PA-C Service: Hospital Medicine Author Type: Physician Geodetic Advisor Type: Plan of Care Filed: 02/02/2025 04:59 Note Text: 2345: This DILLAN was notified about this patient's Chest X-ray results by RN. Chest X-ray - low lung volumes w/hazy bibasilar opacities, possible atelectasis or infection. 0458: WBC - 8.86 Procal - <0.06 CRP - <0.3 No evidence of infection based on labs and no fever on vitals. Smitha Henning PA-C [facility] 02-01-2025 Instructions Dali Dillon APRN.CNP - 02/01/2025 9:29 AM EDT You need to go to ER. documented in this encounter [facility] 02-01-2025 History of Presen t illness Narrative PRIMARY CARE PHYSICIAN: Smitha Ray [address] [place] [id number] Chief Complaint Patient presents with: CARD Follow Up 6 Month: Follow up HISTORY OF PRESENT ILLNESS: Mr. Hagan is a 74 year old male who is known to Dr. Jain , patient has a history of atrial fibrillation, recent pacemaker implant [employer] dual-chamber pacemaker 07-22-[address] Horan for bradycardia and sinus node dysfunction, chronic recurrent pulmonary embolisms, he continued oral anticoagulation for suspected presence of left atrial clot PFO was also noted.. He sees Dr. Frias for pulmonary hypertension and with history of multiple thromboembolic events on chronic Coumadin therapy. Patient presented the hospital June 16, 2022, for dizziness and difficulty urinating was previously admitted for subscapular hematoma and retroperitoneal bleeding from May 24 to June 04 then June 05 through , CT done during the first admission showed large right subcapsular hematoma in the area of right renal mass extending inferiorly through the right retroperitoneum, he underwent IVC filter placement on 05-20-2022, in preparation for surgery, Coumadin was restarted he had a spontaneous bleed from his tumor requiring IR embolization, blood transfusion and admission to the MICU, During the June 16, 2022 admission, CT demonstrated bilateral pulmonary emboli and was transferred to interventional radiology for pulmonary angiography, pulmonary artery thrombectomy on June 21 he underwent robotic assisted laparoscopic right radial nephrectomy he received 2 units packed red blood cells intraoperatively. Was also found to be in atrial fibrillation with rapid ventricular response and was admitted to the ICU for postoperative management, patient received multiple transfusions postoperatively, on 06-26 CT of the chest revealed pneumonia started on antibiotics, was transitioned to Coumadin therapy During his admission for atrial fibrillation with rapid ventricular response, patient metoprolol was increased to 12.5 mg every 6 hours, he also was provided dig load, amiodarone was not recommended secondary to history of left atrial appendage thrombus. Patient was seen Dr. Jaeger in [place] on January 14, 2025 patient had been admitted to [facility] and underwent a stress test and echocardiogram that showed decline in LV function from 45 to 25%, he had complained of worsening shortness of breath fatigue and lower extremity edema, patient was started on guideline medical therapy, and it was reviewed with patient that he should undergo right and left heart catheterization for definitive diagnosis, it would was reviewed in great detail with patient that he would need to discontinue Eliquis for 48 hours prior to procedure he was worried about discontinuing oral anticoagulation he was also worried about renal function given his history of nephrectomy. Patient arrives today for general cardiology appointment, he states he woke up this morning severely short of breath, states worst day ever. Patient seated upright in chair in exam room, with marked shortness of breath, abdominal breathing noted with marked conversational dyspnea. Diminished bilateral breath sounds 1-2+ lower extremity edema 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 on chronic Coumadin,managed by pcp Hyperlipidemia 07/08/2017 LBBB (left bundle branch block) 07/08/2017 Orthostasis Other acute embolism veins 11/2008 left leg Other pulmonary embolism and infarction 1998 Other specified disorder of gallbladder Presence of IVC filter Pulmonary HTN (HCC) Recurrent pulmonary emboli (HCC) Renal mass, right S/p nephrectomy S/P Difficult robotic radical nephrectomy on the right Sinus pause SOB (shortness of breath) 07/08/2017 PAST SURGICAL HISTORY Procedure Laterality Date CARDIOVERSION 09/12/2020 Successful conversion from atrial fibrillation to atrial paced rhythm, by Dr. Horan at [facility] CARDIOVERSION 02/04/2021 Successful conversion from atrial fibrillation to sinus rhythm, by Dr. Horan at [facility] CC PCI CORONARY INTERVENT 2019 CT ANGIOGRAPHY CHEST 11/30/2016 w/contrast ECHO TRANSESOPHAG CONGEN PROBE [facility] I&R 01/02/2021 EF 55%, +LAKSHMI thrombus, +PFO ECHO TRANSESOPHAG CONGEN PROBE [facility] I&R 02/04/2021 EF 50%, mildly dilated RV, moderately dilated LA, no LAKSHMI thrombus, no PFO ECHOCARDIOGRAM 01/04/2006 [facility] EKG 12 LEAD 04/23/2011 [facility] MONITOR 07/08/2017 24 hour LAPS SURG CHOLECYSTECTOMY W/CHOLANGIOGRAPHY 04/21/2009 [employer]EMAKER IMPLANT Left 07/22/2020 Dual chamber, [employer], MRI compatible 6 weeks after implantm by Dr. Horan at [facility] PAST SURGICAL HISTORY OF Right kidney removal May 2022 STRESS TEST 03/11/2006 [facility] WENDY (TRANSESOPHAGEAL ECHO) 11/30/2016 [facility] DO TONSILLECTOMY PRIMARY/SECONDARY AGE 14/> FAMILY HISTORY Problem Relation Age of Onset Arthritis Mother Cancer Mother Blood Disease Father clotting factor Diabetes Father Seizures Father Blood Disease Sister clotting factor DVT Sister Blood Disease Brother clotting ffactor DVT Brother Social History Tobacco Use Smoking status: Never Smokeless tobacco: Never Vaping Use Vaping status: Never Used Substance Use Topics Alcohol use: No Drug use: No ALLERGIES No Known Allergies Medications: Current Outpatient Medications Medication Sig Dispense Refill fluticasone (FLONASE) 50 mcg/actuation nasal spray Use 2 Sprays in each nostril once daily. Rinse mouth after use. 11.1 mL 0 ELIQUIS 5 mg tab(s) Take 5 mg by mouth two times a day. buPROPion XL (WELLBUTRIN XL) 150 mg 24 hr tablet two times a day. metoprolol succinate ER (TOPROL XL) 25 mg 24 hr tablet Take 50 mg by mouth two times a day. atorvastatin (LIPITOR) 40 mg tablet Take 40 mg by mouth once daily. sildenafil (REVATIO) 20 mg tablet Take 1 tablet by mouth two times a day. 60 tablet 5 furosemide (LASIX) 40 mg tablet Take 40 mg by mouth once daily. finasteride (PROSCAR) 5 mg tablet Take 5 mg by mouth every evening. aspirin, enteric coated (ECOTRIN LOW STRENGTH) 81 mg EC tablet Take 1 tablet by mouth once daily. cholecalciferol (VITAMIN D3) 50 mcg (2,000 unit) tablet Take 2,000 Units by mouth twice daily. escitalopram 20 mg tablet Take 20 mg by mouth once daily. OLANZapine (ZYPREXA) 5 mg tablet Take 5 mg by mouth daily at bedtime. calcium carbonate (CALTRATE) 600 mg calcium (1,500 mg) tab Take 600 mg by mouth two times a day. calcitonin,salmon, (MIACALCIN) 200 unit/actuation nasal spray Inhale as instructed. (Patient not taking: Reported on 12/20/2023) No current facility-administered medications for this visit. Review of Systems Constitutional: Positive for malaise/fatigue. HENT: Negative for congestion. Eyes: Negative for blurred vision. Respiratory: Positive for shortness of breath. Cardiovascular: Negative for chest pain, palpitations, orthopnea and leg swelling. Gastrointestinal: Negative for blood in stool and nausea. Musculoskeletal: Negative for back pain and falls. Neurological: Negative for dizziness, tingling, speech change, loss of consciousness and weakness. Endo/Heme/Allergies: Does not bruise/bleed easily. Psychiatric/Behavioral: The patient does not have insomnia. Physical Examination: Vitals:BP 142/94 Pulse 99 Resp 18 Ht 5' 9 (1.75m) Wt 256 lb (116.1kg) SpO2 98% BMI 37.79 kg/(m^2). Last 2 Encounter Wt Readings: Date: Wt: 03/09/2022 260 lb (117.9 kg) 01/29/2022 265 lb (120.2 kg) Physical Exam Vitals and nursing note reviewed. Constitutional: Appearance: He is not diaphoretic. HENT: Head: Atraumatic. Right Ear: Hearing normal. Left Ear: Hearing normal. Nose: No nasal deformity, mucosal edema or rhinorrhea. Eyes: Extraocular Movements: Right eye: No nystagmus. Left eye: No nystagmus. Pupils: Pupils are equal, round, and reactive to light. Neck: Vascular: No carotid bruit, hepatojugular reflux or JVD. Trachea: No tracheal deviation. Cardiovascular: Rate and Rhythm: Normal rate. Rhythm irregular. Chest Wall: PMI is not displaced. Pulses: Normal pulses. Heart sounds: Normal heart sounds. No murmur heard. Pulmonary: Effort: Pulmonary effort is normal. Breath sounds: Normal breath sounds. No stridor. Comments: Diminished bilateral bases Abdominal: General: Bowel sounds are normal. Palpations: Abdomen is soft. Tenderness: There is no abdominal tenderness. Musculoskeletal: General: Swelling present. Normal range of motion. Cervical back: Normal range of motion and neck supple. Skin: General: Skin is warm and dry. Coloration: Skin is not pale. Nails: There is no clubbing. Neurological: Mental Status: He is alert and oriented to person, place, and time. Cranial Nerves: No facial asymmetry. Motor: No weakness or abnormal muscle tone. Coordination: Coordination normal. Gait: Gait is intact. Gait normal. Psychiatric: Mood and Affect: Mood and affect normal. Cognition and Memory: Memory normal. Judgment: Judgment normal. Prior Cardiac Testing Cardiac Catheterization/PCI 05/25/2018: Left Anterior Descending Artery - The first diagonal artery was medium sized. The second diagonal artery was small. The third diagonal artery was medium to large. The left anterior descending artery gave rise to three diagonal arteries. The left anterior descending artery gave rise to two septal perforators. There was a 30% diffuse stenosis in the left anterior descending artery. There was a 50% discrete stenosis in the proximal first diagonal artery. There was an 80% discrete stenosis in the proximal third diagonal artery. The lesion was believed to be the source of thepatient's symptoms. A bare metal, MINI VISION BMS MERCADO MINI VISION RX BMS 2.5 X 12MM - L1 stent was placed in the third diagonal artery and post-dilated to 2.5 mm. The balloon was inflated 1 time for a maximum duration of 30 seconds to a maximum pressure of 12 baldev. There was no dissection and no perforation. Post-dilation of stent(s) was done with a NC TREK BALLOONS MERCADO BAL NC TREK 2.50 X 8MM - L1 to 2.5 mm at 12 baldev. The balloon was inflated 2 times for a maximum duration of 30 seconds. Postprocedure stenosis was 0%. AYAAN flow was grade 3 before intervention and grade 3 post intervention. Left Circumflex Artery - The circumflex artery gave rise to two obtuse marginal arteries. There was a 60% diffuse stenosis in the proximal left circumflex artery. Right Coronary Artery - The right coronary artery was dominant to the posterior circulation. The right coronary artery gives rise to two posterolateral arteries. There was a 70% discrete stenosis in the proximal second acute marginal artery. There was a 40% diffuse stenosis in the right coronary artery. Regadenoson Cardiolite stress test 12/31/2024 Peak pharmacological ECG with no diagnosis changes secondary to baseline abnormality Baseline atrial fibrillation Fixed septal and mid to distal anterior hypoperfusion suggestive of previous nontransmural infarct versus artifact secondary to left bundle branch block. No reversible changes noted Gated Cardiolite study reports an LVEF of 29% Regadenoson Myoview Stress 02/22/2022: CONCLUSIONS: 1. SPECT Perfusion Study: Normal Perfusion but abnormal EF. 2. There is no scintigraphic evidence for inducible ischemia. 3. No evidence of scarred myocardium. 4. Left ventricle is normal in size. The left ventricle systolic function is mildly decreased. 5. Right ventricle is normal in size. The right ventricle systolic function is normal. 6. This is an intermediate risk scan. Gated Stress FBP LVEF % 41 Echocardiogram [facility] 12/29/2024: Severe generalized LV hypokinesis. Estimated LVEF 25-30% Mild to moderate global right ventricular systolic dysfunction The left atrium is severely enlarged The right atrium is mildly enlarged Moderate (2+) mitral valve insufficiency Mild tricuspid valve insufficiency Right ventricular systolic pressure estimated to be 63 mmHg Echocardiogram 06-17-2022 - The left ventricle is normal in size. There is mild left ventricular hypertrophy. Left ventricular systolic function is normal. EF = 63 5% (2D biplane) Definity contrast used for endocardial border detection. Difficult to assess LV size and function due to beat to beat variability. - The right ventricle is normal in size. Right ventricular systolic function is low normal. - Exam was compared with the prior echocardiographic exam performed on 05/26/2022. The RV size appears normal today. LV function has improved. Lexiscan stress test 02-22-2022 1. SPECT Perfusion Study: Normal Perfusion but abnormal EF. 2. There is no scintigraphic evidence for inducible ischemia. 3. No evidence of scarred myocardium. 4. Left ventricle is normal in size. The left ventricle systolic function is mildly decreased. 5. Right ventricle is normal in size. The right ventricle systolic function is normal. 6. This is an intermediate risk scan. Gated Stress FBP LVEF % 41 Echo: 02/04/21: WENDY: CONCLUSIONS: - Exam indication: Pre Cardioversion, Pre AF Ablation - Left ventricular systolic function is mildly decreased. EF = 50 5% (visual est.) - The right ventricle is mildly dilated. Right ventricular systolic function is moderately decreased. - The left atrial cavity is moderately dilated. There is no left atrial appendage thrombus. - There is no patent foramen ovale as detected by Doppler and agitated saline contrast. - Exam was compared with the prior CC echocardiographic exam performed on 01/02/21 Cardiac Catheterization: 05/25/18: BMS to diagonal. RA: RV: 38/8 PAP; - (35) PWP: - (17) 65% SAT Holter / Event Recorder : - Stress Test : 09/16/17: IMPRESSION: 1. No evidence for myocardial ischemia or scar. 2. Normal left ventricular wall motion as described above, with an ejection fraction of 57 %. 3. This is a low risk scan No prior studies to compare Assessment and Plan: ASSESSMENT/PLAN: 1. Atrial fibrillation EKG today demonstrates atrial fibrillation rate of 88, complaining of shortness of breath He is on oral anticoagulation, 2. New onset HFrEF Patient echocardiogram from December 2024 at [facility] shows severe generalized LV hypokinesis ejection fraction 25 to 30% left atrium severely dilated 2+ mitral valve insufficiency RSVP 63 mmHg Patient recently saw Dr. Jaeger for consultation regarding possible diagnostic heart catheterization, patient had quite reluctant to see regarding obtaining heart catheterization coming off of oral anticoagulation as well as his history of nephrectomy and CKD, he is still not made a decision whether he wants to have a diagnostic heart catheterization despite his history of coronary artery disease from catheterization in April 2018 Given severity of patient's sudden onset of shortness of breath that he states began this morning as well as patient's physical exam, I strongly advised patient that he needs to seek emergency treatment today, I have placed patient in a wheelchair and I have accompanied him to the emergency department located at this facility I have gave report to Dr. Weathers in the emergency department and also have notified my collaborating import clerk Dali Dillon APRN.[employer] Follow up planning: To ER Electronically signed by Dali Dillon APRN.CNP The above note was partially created using a dictation recognition software. A reasonable attempt has been made to correct any errors. I spent >30 minutes in the visit, which included a review of the patients pertinent past medical history, history of present health status, review of systems, assessment & planning, counseling, and further coordination of care. documented in this encounter [facility] 02-01-2025 Note HNO ID: [id number] Author: DALI DILLON APRN.CNP Service: ? Author Type: Nurse Practitioner Type: Progress Notes Filed: 02/01/2025 12:51 Note Text: PRIMARY CARE PHYSICIAN: Smitha Ray [address] [place] [id number] Chief Complaint Patient presents with: CARD Follow Up 6 Month: Follow up HISTORY OF PRESENT ILLNESS: Mr. Hagan is a 74 year old male who is known to Dr. Jain , patient has a history of atrial fibrillation, recent pacemaker implant [employer] dual-chamber pacemaker 07-22-[address] Horan for bradycardia and sinus node dysfunction, chronic recurrent pulmonary embolisms, he continued oral anticoagulation for suspected presence of left atrial clot PFO was also noted.. He sees Dr. Frias for pulmonary hypertension and with history of multiple thromboembolic events on chronic Coumadin therapy. Patient presented the hospital June 16, 2022, for dizziness and difficulty urinating was previously admitted for subscapular hematoma and retroperitoneal bleeding from May 24 to June 04 then June 05 through , CT done during the first admission showed large right subcapsular hematoma in the area of right renal mass extending inferiorly through the right retroperitoneum, he underwent IVC filter placement on 05-20-2022, in preparation for surgery, Coumadin was restarted he had a spontaneous bleed from his tumor requiring IR embolization, blood transfusion and admission to the MICU, During the June 16, 2022 admission, CT demonstrated bilateral pulmonary emboli and was transferred to interventional radiology for pulmonary angiography, pulmonary artery thrombectomy on June 21 he underwent robotic assisted laparoscopic right radial nephrectomy he received 2 units packed red blood cells intraoperatively. Was also found to be in atrial fibrillation with rapid ventricular response and was admitted to the ICU for postoperative management, patient received multiple transfusions postoperatively, on 06-26 CT of the chest revealed pneumonia started on antibiotics, was transitioned to Coumadin therapy During his admission for atrial fibrillation with rapid ventricular response, patient metoprolol was increased to 12.5 mg every 6 hours, he also was provided dig load, amiodarone was not recommended secondary to history of left atrial appendage thrombus. Patient was seen Dr. Jaeger in [place] on January 14, 2025 patient had been admitted to [facility] and underwent a stress test and echocardiogram that showed decline in LV function from 45 to 25%, he had complained of worsening shortness of breath fatigue and lower extremity edema, patient was started on guideline medical therapy, and it was reviewed with patient that he should undergo right and left heart catheterization for definitive diagnosis, it would was reviewed in great detail with patient that he would need to discontinue Eliquis for 48 hours prior to procedure he was worried about discontinuing oral anticoagulation he was also worried about renal function given his history of nephrectomy. Patient arrives today for general cardiology appointment, he states he woke up this morning severely short of breath, states worst day ever. Patient seated upright in chair in exam room, with marked shortness of breath, abdominal breathing noted with marked conversational dyspnea. Diminished bilateral breath sounds 1-2+ lower extremity edema 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 on chronic Coumadin,managed by pcp Hyperlipidemia 07/08/2017 LBBB (left bundle branch block) 07/08/2017 Orthostasis Other acute embolism veins 11/2008 left leg Other pulmonary embolism and infarction 1998 Other specified disorder of gallbladder Presence of IVC filter Pulmonary HTN (HCC) Recurrent pulmonary emboli (HCC) Renal mass, right S/p nephrectomy S/P Difficult robotic radical nephrectomy on the right Sinus pause SOB (shortness of breath) 07/08/2017 PAST SURGICAL HISTORY Procedure Laterality Date CARDIOVERSION 09/12/2020 Successful conversion from atrial fibrillation to atrial paced rhythm, by Dr. Horan at [facility] CARDIOVERSION 02/04/2021 Successful conversion from atrial fibrillation to sinus rhythm, by Dr. Horan at [facility] CC PCI CORONARY INTERVENT 2019 CT ANGIOGRAPHY CHEST 11/30/2016 w/contrast ECHO TRANSESOPHAG CONGEN PROBE PLCMA IMGN IANDR 01/02/2021 EF 55%, +LAKSHMI thrombus, +PFO ECHO TRANSESOPHAG CONGEN PROBE [facility] IANDR 02/04/2021 EF 50%, mildly dilated RV, moderately dilated LA, no LAKSHMI thrombus, no PFO ECHOCARDIOGRAM 01/04/2006 [facility] EK (more content not included)... [facility] 01-14-2025 Instructions Aure Jaeger MD - 01/14/2025 3:27 PM EDT We are considering a heart catheterization documented in this encounter [facility] 01-14-2025 History of Presen t illness Narrative Images from the original note were not included. [facility] SECTION OF REGIONAL CARDIOLOGY Cardiology ([facility]) [address] [id number] OUTPATIENT VISIT DATE 01/14/2025 PRIMARY CARE PHYSICIAN: Smitha Ray IV [facility] [place] [address] REFERRING PHYSICIAN: No referring provider defined for this encounter. CHIEF COMPLAINT: Chest pain dyspnea on exertion HISTORY OF PRESENT ILLNESS: Mr. Hagan is a 74 year old gentleman with a history of coronary artery disease prior stenting of the diagonal branch in April 2018, persistent atrial fibrillation, cardiomyopathy, hypertension, dyslipidemia who is here to establish new cardiology follow-up. He has been seeing electrophysiology group at [place] for the past few years. He had failed cardioversion and was not interested in undergoing A-fib ablation. He had a recent hospital admission to [facility] for chest pain. He underwent a stress test and echocardiogram. He reports that his ejection fraction is dropped from a baseline of 45% down to 25-30%. He complains of worsening shortness of breath, fatigue, and dyspnea on exertion. He has not had symptoms concerning for congestive heart failure including PND, orthopnea, lower extremity edema. He denies palpitations, lightheadedness, dizziness, or syncope. 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 Horan at [facility] CARDIOVERSION 02/04/2021 Successful conversion from atrial fibrillation to sinus rhythm, by Dr. Horan at [facility] CC PCI CORONARY INTERVENT 2018 CT ANGIOGRAPHY CHEST 11/30/2016 w/contrast ECHO TRANSESOPHAG CONGEN PROBE [facility] I&R 01/02/2021 EF 55%, +LAKSHMI thrombus, +PFO ECHO TRANSESOPHAG CONGEN PROBE [facility] I&R 02/04/2021 EF 50%, mildly dilated RV, moderately dilated LA, no LAKSHMI thrombus, no PFO ECHOCARDIOGRAM 01/04/2006 [facility] EKG 12 LEAD 04/23/2011 [facility] MONITOR 07/08/2017 24 hour LAPS SURG CHOLECYSTECTOMY W/CHOLANGIOGRAPHY 04/21/2009 PACEMAKER IMPLANT Left 07/22/2020 Dual chamber, [employer], MRI compatible 6 weeks after implantm by Dr. Horan at [facility] PAST SURGICAL HISTORY OF Right kidney removal May 2022 STRESS TEST 03/11/2006 [facility] WENDY (TRANSESOPHAGEAL ECHO) 11/30/2016 [facility] DO TONSILLECTOMY PRIMARY/SECONDARY AGE 14/> SOCIAL HISTORY Social History Tobacco Use Smoking status: Never Smokeless tobacco: Never Vaping Use Vaping status: Never Used Substance Use Topics Alcohol use: No Drug use: No FAMILY HISTORY Problem Relation Age of Onset Arthritis Mother Cancer Mother Blood Disease Father clotting factor Diabetes Father Seizures Father Blood Disease Sister clotting factor DVT Sister Blood Disease Brother clotting ffactor DVT Brother ALLERGIES: ALLERGIES No Known Allergies MEDICATIONS: OLANZapine (ZYPREXA) 5 mg tablet Take 5 mg by mouth daily at bedtime. fluticasone (FLONASE) 50 mcg/actuation nasal spray Use 2 Sprays in each nostril once daily. Rinse mouth after use. ELIQUIS 5 mg tab(s) Take 5 mg by mouth two times a day. buPROPion XL (WELLBUTRIN XL) 150 mg 24 hr tablet two times a day. metoprolol succinate ER (TOPROL XL) 25 mg 24 hr tablet Take 50 mg by mouth two times a day. atorvastatin (LIPITOR) 40 mg tablet Take 40 mg by mouth once daily. sildenafil (REVATIO) 20 mg tablet Take 1 tablet by mouth two times a day. furosemide (LASIX) 40 mg tablet Take 40 mg by mouth once daily. finasteride (PROSCAR) 5 mg tablet Take 5 mg by mouth every evening. atorvastatin (LIPITOR) 80 mg tablet Take 0.5 tablets by mouth once daily. aspirin, enteric coated (ECOTRIN LOW STRENGTH) 81 mg EC tablet Take 1 tablet by mouth once daily. cholecalciferol (VITAMIN D3) 50 mcg (2,000 unit) tablet Take 2,000 Units by mouth twice daily. escitalopram 20 mg tablet Take 20 mg by mouth once daily. calcium carbonate (CALTRATE) 600 mg calcium (1,500 mg) tab Take 600 mg by mouth two times a day. calcitonin,salmon, (MIACALCIN) 200 unit/actuation nasal spray Inhale as instructed. (Patient not taking: Reported on 12/20/2023) REVIEW OF SYSTEMS: Review of Systems Constitutional: Negative for chills, fever, malaise/fatigue and weight loss. HENT: Negative for hearing loss and sore throat. Eyes: Negative for blurred vision and double vision. Respiratory: Positive for shortness of breath. Cardiovascular: Positive for chest pain. Genitourinary: Negative for dysuria, frequency, hematuria and urgency. Musculoskeletal: Negative. Skin: Negative. Neurological: Negative for dizziness, seizures, loss of consciousness, weakness and headaches. Endo/Heme/Allergies: Negative for environmental allergies. Does not bruise/bleed easily. Psychiatric/Behavioral: Negative for depression. PHYSICAL EXAMINATION: BP 126/70 Pulse 100 Resp 14 Ht 5' 9 (1.75m) Wt 250 lb 9.6 oz (113.7kg) SpO2 97% BMI 36.99 kg/(m^2). General: Patient is sitting appears comfortable no apparent distress he is alert and oriented x 3 HEENT: Carotid upstrokes are brisk bilateral without bruits no JVD appreciated. Pulmonary: Lungs are clear no rales, wheezes, rhonchi Cardiovascular: Normal S1, S2. Regular rate with an irregularly irregular rhythm. Extremities: Warm, well-perfused, no lower extremity edema. CARDIOVASCULAR MEDICINE TESTING: Cardiac Catheterization/PCI 05/25/2018: Left Anterior Descending Artery - The first diagonal artery was medium sized. The second diagonal artery was small. The third diagonal artery was medium to large. The left anterior descending artery gave rise to three diagonal arteries. The left anterior descending artery gave rise to two septal perforators. There was a 30% diffuse stenosis in the left anterior descending artery. There was a 50% discrete stenosis in the proximal first diagonal artery. There was an 80% discrete stenosis in the proximal third diagonal artery. The lesion was believed to be the source of thepatient's symptoms. A bare metal, MINI VISION BMS MERCADO MINI VISION RX BMS 2.5 X 12MM - L1 stent was placed in the third diagonal artery and post-dilated to 2.5 mm. The balloon was inflated 1 time for a maximum duration of 30 seconds to a maximum pressure of 12 baldev. There was no dissection and no perforation. Post-dilation of stent(s) was done with a NC TREK BALLOONS MERCADO BAL NC TREK 2.50 X 8MM - L1 to 2.5 mm at 12 baldev. The balloon was inflated 2 times for a maximum duration of 30 seconds. Postprocedure stenosis was 0%. AYAAN flow was grade 3 before intervention and grade 3 post intervention. Left Circumflex Artery - The circumflex artery gave rise to two obtuse marginal arteries. There was a 60% diffuse stenosis in the proximal left circumflex artery. Right Coronary Artery - The right coronary artery was dominant to the posterior circulation. The right coronary artery gives rise to two posterolateral arteries. There was a 70% discrete stenosis in the proximal second acute marginal artery. There was a 40% diffuse stenosis in the right coronary artery. Regadenoson Cardiolite stress test 12/31/2024 Peak pharmacological ECG with no diagnosis changes secondary to baseline abnormality Baseline atrial fibrillation Fixed septal and mid to distal anterior hypoperfusion suggestive of previous nontransmural infarct versus artifact secondary to left bundle branch block. No reversible changes noted Gated Cardiolite study reports an LVEF of 29% Regadenoson Myoview Stress 02/22/2022: CONCLUSIONS: 1. SPECT Perfusion Study: Normal Perfusion but abnormal EF. 2. There is no scintigraphic evidence for inducible ischemia. 3. No evidence of scarred myocardium. 4. Left ventricle is normal in size. The left ventricle systolic function is mildly decreased. 5. Right ventricle is normal in size. The right ventricle systolic function is normal. 6. This is an intermediate risk scan. Gated Stress FBP LVEF % 41 Echocardiogram [facility] 12/29/2024: Severe generalized LV hypokinesis. Estimated LVEF 25-30% Mild to moderate global right ventricular systolic dysfunction The left atrium is severely enlarged The right atrium is mildly enlarged Moderate (2+) mitral valve insufficiency Mild tricuspid valve insufficiency Right ventricular systolic pressure estimated to be 63 mmHg Echocardiogram 07/05/2023: - The left ventricle is normal in size. There is mild upper septal asymmetric left ventricular hypertrophy. Left ventricular systolic function is mildly decreased. EF = 43 5% (2D biplane) Left ventricular diastolic function was not evaluated due to AF. Septal hypokinesis on limited views - The right ventricle is normal in size. Right ventricular systolic function is low normal. pacer seen on right side; RV normal in size; No pulm HTN on limited doppler - The left atrial cavity is moderately dilated. - Mild MR. - Estimated right ventricular systolic pressure is 30 mmHg consistent with normal pulmonary artery pressures. Estimated right atrial pressure is 15 mmHg based on IVC assessment. Tech limited study due to body habitus - Exam was compared with the prior CC WENDY performed on 09/07/2022. There is no significant change in LVEF; PA pressures not estimated on prior study PM remote interrogation 10/25/2024: Presenting EGM: Afib @ 61-93 bpm. Interrogation shows no ventricular high rates and mode switch remains chronic since last check. Takes Eliquis. Lead impedances and sensing measurements stable. RV auto stable. Battery voltage stable. Recommended replacement time is 7.5 yrs. IMPRESSION: Mr. 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 PLAN AND RECOMMENDATIONS: 1. Coronary artery disease involving [place] coronary artery of [place] heart without angina pectoris - ICD9: 414.01, ICD10: I25.10 (primary diagnosis) I do lengthy discussion with the patient regarding his symptoms. Despite having a recent low risk stress test I have recommended he undergo right and left heart catheterization for definitive diagnosis. Patient is very reluctant to consider invasive procedures as he will have to discontinue his Eliquis for 48 hours prior to the procedure. Did not edition, he is worried about his renal function given a history of nephrectomy. I went over the risks and benefits with him in detail. He would like to consider this. I will try to contact the patient in the next 4 to 5 days. 2. Persistent atrial fibrillation (HCC) - ICD9: 427.31, ICD10: I48.19 Heart rates adequate controlled on current medication. He is on Eliquis for stroke risk reduction 3. Primary hypertension - ICD9: 401.9, ICD10: I10 Well-controlled on current regimen. 4. Mixed hyperlipidemia - ICD9: 272.2, ICD10: E78.2 Fasting blood work from November 2024 was reviewed. LDL cholesterol 67 mg/dL continue atorvastatin 40 mg daily 5. Atherosclerosis of aorta - ICD9: 440.0, ICD10: I70.0 6. Pulmonary HTN (HCC) - ICD9: 416.8, ICD10: I27.20 Aure Jaeger MD documented in this encounter [facility] 01-14-2025 Note HNO ID: [id number] Author: AURE JAEGER MD Service: ? Author Type: Physician Type: Progress Notes Filed: 01/14/2025 16:28 Note Text: [facility] Cardiology ([address]) [address] [facility] [id number] OUTPATIENT VISIT DATE 01/14/2025 PRIMARY CARE PHYSICIAN: Smitha Ray IV [facility] [place] [address] REFERRING PHYSICIAN: No referring provider defined for this encounter. CHIEF COMPLAINT: Chest pain dyspnea on exertion HISTORY OF PRESENT ILLNESS: Mr. Hagan is a 74 year old gentleman with a history of coronary artery disease prior stenting of the diagonal branch in April 2018, persistent atrial fibrillation, cardiomyopathy, hypertension, dyslipidemia who is here to establish new cardiology follow-up. He has been seeing electrophysiology group at [place] for the past few years. He had failed cardioversion and was not interested in undergoing A-fib ablation. He had a recent hospital admission to [facility] for chest pain. He underwent a stress test and echocardiogram. He reports that his ejection fraction is dropped from a baseline of 45% down to 25-30%. He complains of worsening shortness of breath, fatigue, and dyspnea on exertion. He has not had symptoms concerning for congestive heart failure including PND, orthopnea, lower extremity edema. He denies palpitations, lightheadedness, dizziness, or syncope. 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 on chronic Coumadin,managed by pcp Hyperlipidemia 07/08/2017 LBBB (left bundle branch block) 07/08/2017 Orthostasis Other acute embolism veins 11/2008 left leg Other pulmonary embolism and infarction 1998 Other specified disorder of gallbladder Presence of IVC filter Pulmonary HTN (HCC) Recurrent pulmonary emboli (HCC) Renal mass, right S/p nephrectomy S/P Difficult robotic radical nephrectomy on the right Sinus pause SOB (shortness of breath) 07/08/2017 PAST SURGICAL HISTORY Procedure Laterality Date CARDIOVERSION 09/12/2020 Successful conversion from atrial fibrillation to atrial paced rhythm, by Dr. Horan at [facility] CARDIOVERSION 02/04/2021 Successful conversion from atrial fibrillation to sinus rhythm, by Dr. Horan at [facility] CC PCI CORONARY INTERVENT 2019 CT ANGIOGRAPHY CHEST 11/30/2016 w/contrast ECHO TRANSESOPHAG CONGEN PROBE [facility] IANDR 01/02/2021 EF 55%, +LAKSHMI thrombus, +PFO ECHO TRANSESOPHAG CONGEN PROBE [facility] IANDR 02/04/2021 EF 50%, mildly dilated RV, moderately dilated LA, no LAKSHMI thrombus, no PFO ECHOCARDIOGRAM 01/04/2006 [facility] EKG 12 LEAD 04/23/2011 [facility] EVENT MONITOR 07/08/2017 24 hour LAPS SURG CHOLECYSTECTOMY W/CHOLANGIOGRAPHY 04/21/2009 PACEMAKER IMPLANT Left 07/22/2020 Dual chamber, [employer], MRI compatible 6 weeks after implantm by Dr. Horan at [facility] PAST SURGICAL HISTORY OF Right kidney removal May 2022 STRESS TEST 03/11/2006 [facility] WENDY (TRANSESOPHAGEAL ECHO) 11/30/2016 Nakul/Payton Hastings DO TONSILLECTOMY PRIMARY/SECONDARY AGE 14/> SOCIAL HISTORY Social History Tobacco Use Smoking status: Never Smokeless tobacco: Never Vaping Use Vaping status: Never Used Substance Use Topics Alcohol use: No Drug use: No FAMILY HISTORY Problem Relation Age of Onset Arthritis Mother Cancer Mother Blood Disease Father clotting factor Diabetes Father Seizures Father Blood Disease Sister clotting factor DVT Sister Blood Disease Brother clotting ffactor DVT Brother ALLERGIES: ALLERGIES No Known Allergies MEDICATIONS: OLANZapine (ZYPREXA) 5 mg tablet Take 5 mg by mouth daily at bedtime. fluticasone (FLONASE) 50 mcg/actuation nasal spray Use 2 Sprays in each nostril once daily. Rinse mouth after use. ELIQUIS 5 mg tab(s) Take 5 mg by mouth two times a day. buPROPion XL (WELLBUTRIN XL) 150 mg 24 hr tablet two times a day. metoprolol succinate ER (TOPROL XL) 25 mg 24 hr tablet Take 50 mg by mouth two times a day. atorvastatin (LIPITOR) 40 mg tablet Take 40 mg by mouth once daily. sildenafil (REVATIO) 20 mg tablet Take 1 tablet by mouth two times a day. furosemide (LASIX) 40 mg tablet Take 40 mg by mouth once daily. finasteride (PROSCAR) 5 mg tablet Take 5 mg by mouth every evening. atorvastatin (LIPITOR) 80 mg tablet Take 0.5 tablets by mouth once daily. aspirin, enteric coated (ECOTRIN LOW STRENGTH) 81 mg EC tablet Take 1 tablet by mouth once daily. cholecalciferol (VITAMIN D3) 50 mcg (2,000 unit) tablet Take 2,000 Units by mouth (more content not included)... [facility] 01-04-2025 Instructions Hector Naveen, APRN.CHERIE - 01/04/2025 9:32 AM EDT We discussed your atrial fibrillation and heart function: - Your recent EKG shows atrial fibrillation, which is not new for you. - Your ejection fraction (pumping function) is currently 25-30%, which is reduced. Because of this, I am stopping your diltiazem today, as it is not safe to use with this level of heart function. If you have already taken it today, that is fine, but do not take it moving forward. - Continue taking metoprolol at your current dose. - I sent a message to Dr. Horan to review your chart and determine if upgrading your pacemaker to a 3-wire device could improve your heart function. This would allow your heart to pace more effectively, especially given your left bundle branch block. - Will arrange follow up with general cardiology to schedule an appointment. They can help manage your medications and may want to repeat an echocardiogram in a couple of months to reassess your heart function. - If your ejection fraction does not improve with medication adjustments, you may be a candidate for a defibrillator, which could protect you from life-threatening arrhythmias. This is different from your current pacemaker, as a defibrillator can deliver a shock if needed. We discussed your symptoms: - You reported lightheadedness, fatigue, shortness of breath, and occasional wheezing when short of breath. You also mentioned chest pain last week, which has improved. - You noted swelling in your left leg, which has been a chronic issue due to your history of blood clots and pulmonary emboli. - You do not have dizziness, loss of consciousness, or bleeding issues. We discussed next steps for monitoring and follow-up: - Your next remote pacemaker check is scheduled for January 31. If you feel unwell before then, you can press the button on your home monitor and call the device clinic to report your symptoms. They can review the data and correlate it with how you are feeling. - I recommend a follow-up appointment in 3 months to reassess your symptoms and review any updates from general cardiology or Dr. Horan. - If you decide you would like to be seen in our heart failure clinic, let me know, and I can place a referral. The clinic provides education on managing heart failure, including daily weight monitoring, sodium restriction, and medication adjustments. documented in this encounter [facility] 01-04-2025 History of Presen t illness Narrative Images from the original note were not included. [facility] Cardiology Electrophysiology PRIMARY CARE PHYSICIAN: Smitha Ray IV [address] [place] [address] CHIEF COMPLAINT: Cardiovascular medicine follow-up for arrhythmia and pacemaker. HISTORY OF PRESENT ILLNESS: Mr. Hagan is a 74 year old male who presents today for follow-up regarding arrhythmia and pacemaker. The patient has a past medical history significant for coronary disease, pulmonary hypertension, persistent atrial fibrillation, obesity with a BMI of 37, left bundle branch block, and multiple pulmonary embolisms. He is on chronic anticoagulation and has a suspected hypercoagulable state. He has at least a 5-year history of persistent atrial fibrillation, managed with rate control and anticoagulation, and has never underwent a cardioversion. He reported occasional dizziness, fatigue, low energy, and exertional dyspnea. He was last seen by Dr. Horan in July 2023, where an ECG showed atrial fibrillation with a ventricular rate of 80 BPM, and LBBB. [employer] dual chamber pacemaker previously implanted 07/22/2020. Catheter ablation was inquired about at that appointment. Diagnostic Results: - Event Monitor: Demonstrated pauses. - 30-day Event Monitor: Showed ongoing atrial fibrillation with mostly controlled ventricular rates, but pauses up to 3.8 seconds. - WENDY (December 2021): Showed left atrial appendage thrombus. - Repeat WENDY (January 2022): Showed resolution of thrombus and sinus rhythm was restored. - ECG (July 2023): Showed ventricular fibrillation, atrial fibrillation with a ventricular rate of 80 BPM, and LBBB. - DLCO on PFT (2017): Mildly reduced. History of Primary Diagnosis: - 2019: Underwent PCI/stent placement. - 07/22/2020: Dual chamber pacemaker implanted by Dr. Horan. - Post-implantation: Developed sustained atrial fibrillation. - December 2021: WENDY showed left atrial appendage thrombus. - January 2022: Repeat WENDY showed resolution of thrombus and sinus rhythm was restored. - February 2022: Atrial fibrillation recurred. - Shortly thereafter: Developed renal cell malignancy, underwent nephrectomy, had bilateral pulmonary emboli, and an IVC filter was placed. - August 2022: Underwent WENDY-guided DC cardioversion with atrial fibrillation recurrence less than a day later. Items for Follow-Up Today: - Recommended PFTs and if DLCO not significantly reduced, start amiodarone load, followed by cardioversion. Interval History: The patient is a 74-year-old male with a history of CAD, status post PCI/stent in 2019, pulmonary hypertension, persistent atrial fibrillation, obesity (BMI 36), LBBB, and multiple DVTs and PEs, presenting for evaluation of lightheadedness, fatigue, and exertional dyspnea. The patient reports a longstanding history of feeling like floating and lightheadedness, without true dizziness. He also experiences fatigue, low energy, and exertional dyspnea. He denies palpitations, syncope, or falls. He notes occasional wheezing when short of breath. He reports a significant episode of chest pain about a week ago, which has since improved, he was hospitalized at [facility] and underwent an echocardiogram and stress test at that time. He observes that his left leg is larger than the right due to previous DVTs, but denies any bleeding issues, such as hematuria, melena, or epistaxis. He denies any recent illnesses, fevers, or chills. He has a history of persistent atrial fibrillation managed with rate control and anticoagulation. He has experienced at least five episodes of PE and is on chronic anticoagulation. He previously had an IVC filter that was later removed. He wore an event monitor, which demonstrated pauses, leading to a referral to Dr. Horan. A 30-day event monitor showed ongoing atrial fibrillation with mostly controlled ventricular rates but pauses up to 3.8 seconds. He received a dual-chamber pacemaker on 07/22/2020, followed by DC cardioversion a few weeks later. Following cardioversion, he developed sustained atrial fibrillation. A WENDY in December 2021 showed left atrial appendage thrombus, which resolved on repeat WENDY a month later, restoring sinus rhythm. Atrial fibrillation recurred about a month later. He then developed renal cell carcinoma, underwent nephrectomy, and had bilateral PEs, leading to the placement of an IVC filter. He is suspected to have a hypercoagulable state. After a prolonged hospitalization, he followed up with Dr. Horan, and an ECG showed atrial fibrillation. In August 2022, he underwent WENDY-guided DC cardioversion, with atrial fibrillation recurrence less than a day later. He was last seen by Dr. Horan in July 2023, with an ECG showing atrial fibrillation with a ventricular rate of 80 bpm and LBBB. He recently underwent a stress test and echocardiogram, which showed an LVEF of 25-30%. His states his primary care doctor adjusted his medications about three weeks ago due to his symptoms. He was initially instructed to stop diltiazem for a week, but when symptoms persisted, he was advised to stop metoprolol 25 mg. The following week, he experienced worsening symptoms and went to the ED. He reports that a few of his medications were adjusted including metoprolol increased, due to the LVEF will discontinue diltiazem and continue to monitor heart rate through pacemaker analysis. He denies any follow-up appointments with the cardiology group at [place] but has been advised to follow up with his primary care doctor and produce specialist. He was seen by pulmonary yesterday. He prefers to follow with [facility] cardiology, will make arrangements today. 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 Horan at [facility] CARDIOVERSION 02/04/2021 Successful conversion from atrial fibrillation to sinus rhythm, by Dr. Horan at [facility] PCI CORONARY INTERVENT 2018 CT ANGIOGRAPHY CHEST 11/30/2016 w/contrast ECHO TRANSESOPHAG CONGEN PROBE [facility] I&R 01/02/2021 EF 55%, +LAKSHMI thrombus, +PFO ECHO TRANSESOPHAG CONGEN PROBE [facility] I&R 02/04/2021 EF 50%, mildly dilated RV, moderately dilated LA, no LAKSHMI thrombus, no PFO ECHOCARDIOGRAM 01/04/2006 [facility] EKG 12 LEAD 04/23/2011 [facility] EVENT MONITOR 07/08/2017 24 hour LAPS SURG CHOLECYSTECTOMY W/CHOLANGIOGRAPHY 04/21/2009 PACEMAKER IMPLANT Left 07/22/2020 Dual chamber, [employer], MRI compatible 6 weeks after implantm by Dr. Horan at [facility] PAST SURGICAL HISTORY OF Right kidney removal May 2022 STRESS TEST 03/11/2006 [facility] WENDY (TRANSESOPHAGEAL ECHO) 11/30/2016 Nakul/Payton Hastings, TONSILLECTOMY PRIMARY/SECONDARY AGE 14/> Social History Tobacco Use Smoking status: Never Smokeless tobacco: Never Vaping Use Vaping status: Never Used Substance Use Topics Alcohol use: No Drug use: No Family History Problem Relation Age of Onset Arthritis Mother Cancer Mother Blood Disease Father clotting factor Diabetes Father Seizures Father Blood Disease Sister clotting factor DVT Sister Blood Disease Brother clotting ffactor DVT Brother ALLERGIES No Known Allergies MEDICATIONS: ELIQUIS 5 mg tab(s) Take 5 mg by mouth two times a day. buPROPion XL (WELLBUTRIN XL) 150 mg 24 hr tablet two times a day. metoprolol succinate ER (TOPROL XL) 25 mg 24 hr tablet Take 50 mg by mouth two times a day. atorvastatin (LIPITOR) 40 mg tablet Take 40 mg by mouth once daily. sildenafil (REVATIO) 20 mg tablet Take 1 tablet by mouth two times a day. furosemide (LASIX) 40 mg tablet Take 40 mg by mouth once daily. finasteride (PROSCAR) 5 mg tablet Take 5 mg by mouth every evening. atorvastatin (LIPITOR) 80 mg tablet Take 0.5 tablets by mouth once daily. aspirin, enteric coated (ECOTRIN LOW STRENGTH) 81 mg EC tablet Take 1 tablet by mouth once daily. cholecalciferol (VITAMIN D3) 50 mcg (2,000 unit) tablet Take 2,000 Units by mouth twice daily. escitalopram 20 mg tablet Take 20 mg by mouth once daily. fluticasone (FLONASE) 50 mcg/actuation nasal spray Use 2 Sprays in each nostril once daily. Rinse mouth after use. (Patient not taking: Reported on 01/04/2025) calcium carbonate (CALTRATE) 600 mg calcium (1,500 mg) tab Take 600 mg by mouth two times a day. calcitonin,salmon, (MIACALCIN) 200 unit/actuation nasal spray Inhale as instructed. (Patient not taking: Reported on 12/20/2023) REVIEW OF SYSTEMS: Review of Systems Constitutional: Positive for malaise/fatigue. Negative for chills, diaphoresis and fever. HENT: Negative for nosebleeds. Respiratory: Positive for shortness of breath and wheezing (with shortness of breath). Negative for cough, hemoptysis and sputum production. Cardiovascular: Positive for leg swelling (L > R). Negative for chest pain, palpitations, orthopnea and PND. Gastrointestinal: Negative for blood in stool. Genitourinary: Negative for hematuria. Musculoskeletal: Negative for falls and myalgias. Neurological: Negative for dizziness, loss of consciousness and headaches. Lightheaded, working with PCP actively Endo/Heme/Allergies: Does not bruise/bleed easily. PHYSICAL EXAMINATION: BP 122/82[(R) arm[ Pulse 69 Resp 18 Ht 5' 9 (1.75m) Wt 249 lb (112.9kg) SpO2 96% BMI 36.75 kg/(m^2). Physical Exam Vitals and nursing note reviewed. Constitutional: General: He is not in acute distress. Appearance: He is not diaphoretic. HENT: Head: Normocephalic and atraumatic. Neck: Vascular: No JVD. Cardiovascular: Rate and Rhythm: Normal rate. Rhythm irregularly irregular. Pulses: Radial pulses are 2+ on the right side and 2+ on the left side. Heart sounds: S1 normal and S2 normal. No murmur heard. No gallop. Comments: Left upper chest pacemaker site without signs of infection, erythema or swelling. Pulmonary: Effort: Pulmonary effort is normal. No respiratory distress. Breath sounds: Normal breath sounds. No wheezing or rales. Chest: Chest wall: No tenderness. Musculoskeletal: General: Normal range of motion. Cervical back: Neck supple. Right lower leg: Edema present. Left lower leg: Edema present. Skin: General: Skin is warm and dry. Nails: There is no clubbing. Neurological: Mental Status: He is alert and oriented to person, place, and time. Psychiatric: Mood and Affect: Mood and affect normal. Behavior: Behavior normal. CARDIOVASCULAR MEDICINE TESTING: Echocardiogram: 12/29/2024 ([facility]) -Severe generalized LV hypokinesis. Estimated LVEF 25-30%. - Mild to moderate global right ventricular systolic dysfunction. - The left atrium is severely enlarged. - The right atrium is mildly enlarged. - Moderate 2+ mitral valve insufficiency. - Mild tricuspid valve insufficiency. - Right ventricular systolic pressure estimated to be 63 mmHg. - The study was technically difficult. Treadmill stress test: 12/31/2024 1. Pharmacologic evaluation 2. Peak pharmacologic ECG with no diagnostic changes secondary to baseline abnormality. 3. Baseline atrial fibrillation. 4. Fixed septal and mid to distal anterior hypoperfusion suggestive of previous nontransmural infarct versus artifact secondary to left bundle branch block. No reversible changes noted. 5. The gated Cardiolite study reports an LVEF of 29%. Device Check: [facility] device clinic 10/25/2024: Report copied forward: PM remote interrogation. Presenting EGM: Afib @ 61-93 bpm. Interrogation shows no ventricular high rates and mode switch remains chronic since last check. Takes Eliquis. Lead impedances and sensing measurements stable. RV auto stable. Battery voltage stable. Recommended replacement time is 7.5 yrs. Echocardiogram: 07/05/2023 CONCLUSIONS: - Technically difficult exam due to body habitus. - Exam indication: Re-evaluation of known pulmonary hypertension (to guide therapy) - The left ventricle is normal in size. There is mild upper septal asymmetric left ventricular hypertrophy. Left ventricular systolic function is mildly decreased. EF = 43 5% (2D biplane) Left ventricular diastolic function was not evaluated due to AF. Septal hypokinesis on limited views - The right ventricle is normal in size. Right ventricular systolic function is low normal. pacer seen on right side; RV normal in size; No pulm HTN on limited doppler - The left atrial cavity is moderately dilated. - Mild MR. - Estimated right ventricular systolic pressure is 30 mmHg consistent with normal pulmonary artery pressures. Estimated right atrial pressure is 15 mmHg based on IVC assessment. Tech limited study due to body habitus - Exam was compared with the prior CC WENDY performed on 09/07/2022. There is no significant change in LVEF; PA pressures not estimated on prior study Echocardiogram: 06/17/2022 CONCLUSIONS: - Technically difficult exam due to body habitus. - Exam indication: Re-evaluation of pulmonary embolism after thrombolysis - The left ventricle is normal in size. There is mild left ventricular hypertrophy. Left ventricular systolic function is normal. EF = 63 5% (2D biplane) Definity contrast used for endocardial border detection. Difficult to assess LV size and function due to beat to beat variability. - The right ventricle is normal in size. Right ventricular systolic function is low normal. - Exam was compared with the prior CC echocardiographic exam performed on 05/26/2022. The RV size appears normal today. LV function has improved. I have personally reviewed the Electrocardiogram: 01/04/2025 -atrial fibrillation with frequent ventricular paced complexes, LBBB, 70 bpm, QRS 160 ms, QT/QTc 482/520 ms. PLAN AND RECOMMENDATIONS: 1. Persistent atrial fibrillation (HCC) (I48.19) 2. Sinus node dysfunction (HCC) (I49.5) 3. LBBB (left bundle branch block) (I44.7) 4. Pacemaker (Z95.0) Patient has a history of persistent atrial fibrillation with recurrent episodes despite multiple DC cardioversions. Sinus node dysfunction evidenced by pauses up to 3.8 seconds on event monitor. LBBB is chronic. Pacemaker implanted on 07/22/[address] Horan. Today's EKG shows atrial fibrillation with a ventricular rate of 70 BPM and LBBB. Patient experiences fatigue, low energy, and exertional dyspnea. Current pacemaker settings show 18% ventricular pacing. - Discontinue diltiazem due to reduced ejection fraction (EF) of 25-30%. - Maintain current metoprolol dosage. - Will send a message to Dr. Horan to evaluate the potential benefit of upgrading the pacemaker to a biventricular device versus ICD in 3 months after GDMT. - Scheduled a 3-month follow-up to assess progress and review recommendations from Dr. Horan. - Patient advised to establish with [facility], he does not wish to at this time as the office is an hour drive for him, he will follow up with [facility] general cardiology, however. 5. Chronic systolic congestive heart failure (HCC) (I50.22) EF reduced to 25-30%, placing patient at risk for sudden cardiac , which we discussed. Symptoms include fatigue, exertional dyspnea, and occasional chest pain. No edema or bleeding issues reported. No follow-up scheduled with [facility], will arrange for him to follow up with [facility] cardiology at his request. - Anticipate repeat echocardiogram in a few months to reassess EF. - Discussed potential for defibrillator implantation if EF does not improve with medical management. - Patient educated on heart failure management, including daily weight monitoring and sodium restriction. 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 At risk for stroke (Z91.89) Chronic anticoagulation therapy due to history of multiple pulmonary embolisms and atrial fibrillation, risk: Benefit seems favorable. Suspected hypercoagulable state. No reported issues with bleeding. - Continue current anticoagulation therapy. - Monitor for any signs of bleeding. CHADS2-Vasc Score Breakdown 6 Total Score 1 Age 65-74 years old 1 History of hypertension 1 History of diabetes mellitus 2 History of stroke, TIA, or thromboemolism 1 History of vascular disease Return in about 3 months (around 04/06/2025) for Dr. Horan or [facility]. Recording using [employer] software for draft documentation of the visit was discussed with the patient/authorized sales representative gas service; all questions welcomed and answered. Patient/authorized sales representative gas service agreed to proceed Naveen Nino APRN.CNP Medical Decision Making: Problems: Moderate: 1+ chronic illnesses with change Data: Unique source(s) for external note(s) reviewed: 3+ Unique test result(s) reviewed: 3+ Unique test(s) ordered: 1 Risk: Moderate: Drug management and Decision on minor surgery w/ risk factors Medical Decision Making Level: 4 - Moderate The above note was partially created using a dictation recognition software. A reasonable attempt has been made to correct any errors. Patient complains of sob,chest pains, palpitations. documented in this encounter [facility] 01-04-2025 Note HNO ID: [id number] Author: NAVEEN NINO APRN.ELECTRIC ARC WELDER Service: ? Author Type: Nurse Practitioner Type: Progress Notes Filed: 01/04/2025 13:16 Note Text: [facility] Cardiology Electrophysiology PRIMARY CARE PHYSICIAN: [place] [address] CHIEF COMPLAINT: Cardiovascular medicine follow-up for arrhythmia and pacemaker. HISTORY OF PRESENT ILLNESS: Mr. Hagan is a 74 year old male who presents today for follow-up regarding arrhythmia and pacemaker. The patient has a past medical history significant for coronary disease, pulmonary hypertension, persistent atrial fibrillation, obesity with a BMI of 37, left bundle branch block, and multiple pulmonary embolisms. He is on chronic anticoagulation and has a suspected hypercoagulable state. He has at least a 5-year history of persistent atrial fibrillation, managed with rate control and anticoagulation, and has never underwent a cardioversion. He reported occasional dizziness, fatigue, low energy, and exertional dyspnea. He was last seen by Dr. Horan in July 2023, where an ECG showed atrial fibrillation with a ventricular rate of 80 BPM, and LBBB. [employer] dual chamber pacemaker previously implanted 07/22/2020. Catheter ablation was inquired about at that appointment. Diagnostic Results: - Event Monitor: Demonstrated pauses. - 30-day Event Monitor: Showed ongoing atrial fibrillation with mostly controlled ventricular rates, but pauses up to 3.8 seconds. - WENDY (December 2021): Showed left atrial appendage thrombus. - Repeat WENDY (January 2022): Showed resolution of thrombus and sinus rhythm was restored. - ECG (July 2023): Showed ventricular fibrillation, atrial fibrillation with a ventricular rate of 80 BPM, and LBBB. - DLCO on PFT (2017): Mildly reduced. History of Primary Diagnosis: - 2019: Underwent PCI/stent placement. - 07/22/2020: Dual chamber pacemaker implanted by Dr. Horan. - Post-implantation: Developed sustained atrial fibrillation. - December 2021: WENDY showed left atrial appendage thrombus. - January 2022: Repeat WENDY showed resolution of thrombus and sinus rhythm was restored. - February 2022: Atrial fibrillation recurred. - Shortly thereafter: Developed renal cell malignancy, underwent nephrectomy, had bilateral pulmonary emboli, and an IVC filter was placed. - August 2022: Underwent WENDY-guided DC cardioversion with atrial fibrillation recurrence less than a day later. Items for Follow-Up Today: - Recommended PFTs and if DLCO not significantly reduced, start amiodarone load, followed by cardioversion. Interval History: The patient is a 74-year-old male with a history of CAD, status post PCI/stent in 2019, pulmonary hypertension, persistent atrial fibrillation, obesity (BMI 36), LBBB, and multiple DVTs and PEs, presenting for evaluation of lightheadedness, fatigue, and exertional dyspnea. The patient reports a longstanding history of feeling like floating and lightheadedness, without true dizziness. He also experiences fatigue, low energy, and exertional dyspnea. He denies palpitations, syncope, or falls. He notes occasional wheezing when short of breath. He reports a significant episode of chest pain about a week ago, which has since improved, he was hospitalized at [facility] and underwent an echocardiogram and stress test at that time. He observes that his left leg is larger than the right due to previous DVTs, but denies any bleeding issues, such as hematuria, melena, or epistaxis. He denies any recent illnesses, fevers, or chills. He has a history of persistent atrial fibrillation managed with rate control and anticoagulation. He has experienced at least five episodes of PE and is on chronic anticoagulation. He previously had an IVC filter that was later removed. He wore an event monitor, which demonstrated pauses, leading to a referral to Dr. Horan. A 30-day event monitor showed ongoing atrial fibrillation with mostly controlled ventricular rates but pauses up to 3.8 seconds. He received a dual-chamber pacemaker on 07/22/2020, followed by DC cardioversion a few weeks later. Following cardioversion, he developed sustained atrial fibrillation. A WENDY in December 2021 showed left atrial appendage thrombus, which resolved on repeat WENDY a month later, restoring sinus rhythm. Atrial fibrillation recurred about a month later. He then developed renal cell carcinoma, underwent nephrectomy, and had bilateral PEs, leading to the placement of an IVC filter. He is suspected to have a hypercoagulable state. After a prolonged hospitalization, he followed up with Dr. Horan, and an ECG showed atrial fibrillation. In August 2022, he underwent WENDY-guided DC cardioversion, with atrial fibrillation recurrence less than a day later. He was last seen by Dr. Horan in July 2023, with an (more content not included)... [facility] 01-04-2025 Note HNO ID: [id number] Author: FANG SHELL MA Service: ? Author Type: Stenciling Machine Tender Type: Progress Notes Filed: 01/04/2025 13:16 Note Text: Patient complains of sob,chest pains, palpitations. [facility] 01-03-2025 Instructions Jesenia Arzate APRN.ELECTRIC ARC WELDER - 01/03/2025 10:47 AM EDT Sign and return the release of information today so our staff can obtain your hospital records (including your echo, labs, and imaging studies) for further review. Continue taking your heart medications with new times as prescribed with hospitalization Continue taking your sildenafil as previously directed (two tablets daily--one in the morning and one at night). Monitor your blood pressure at home and note any changes, as well as any persistent symptoms such as shortness of breath, lightheadedness, or chest pain. Follow up in 2 months with pulmonary hypertension specialist documented in this encounter [facility] 01-03-2025 History of Presen t illness Narrative Images from the original note were not included. ESTABLISHED PATIENT FOLLOW-UP SERVICE DATE: 01/01/2025 PRIMARY CARE PHYSICIAN: Smitha Ray IV, DO SUBJECTIVE CHIEF COMPLAINT: Shortness of breath after heart attack Follows with Dr Frias for pulmonary hypertension on sildenafil, H/O PE (06/16/22) and suspected EZIO , ZANE 06/23/2023 PMH: persistent atrial fib (on coumadin) follows with Dr Sparks, back pain, Renal cell carcinoma, S/P right nephrectomy with hemorrhage 04/2022, CKD stage 3, Obesity BMI 37.02, DM II, antiphospholipid antibody, depression, [place] is a 74-year-old male with a history of pulmonary hypertension and atrial fibrillation, presenting for follow-up after a recent hospitalization for acute on chronic heart failure. Hospital follow up Patient's history of hospitalization is vague. He thinks he was told he had a heart attack. Does not know what tests were done or results. Brings in discharge paperwork with medication adjustments. Diagnosis was for A/C heart failure. States he went to ED for chest pain and shortness of breath States that he has had persistent floating sensation x6-8 months. Lightheadedness when standing. States his PCP had stopped his diltiazem, then his metoprolol a week or so prior to hospitalization. His discharge summary Had him increase his Lasix to 40 mg daily from 20 mg daily. His diltiazem was restarted, metoprolol was restarted and increased to 50 mg daily from 25 mg. Medication timing was staggered, to avoid possible BP lows. States he still has the lightheadedness/Floating sensation without improvement with the medication changes. Still with dyspnea. Occasional sweating episodes. Occasional non-productive cough No longer with chest pain. Has an appointment with Dr Sparks tomorrow. Persistent atrial fibrillation; history of two cardioversions. - Recent switch from Coumadin to Eliquis last summer due to unstable INR levels. Pulmonary Hypertension: - Managed with sildenafil 20 mg BID x3-4 years. - Last echo reportedly showed good control of pulmonary hypertension with RVSP 30. Never smoked. IVC filter removed 08/09/2023 Immunizations reviewed. Influenza, Prevnar 20 05/2023 are up to date. 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 on chronic Coumadin,managed by pcp Hyperlipidemia 07/08/2017 LBBB (left bundle branch block) 07/08/2017 Orthostasis Other acute embolism veins 11/2008 left leg Other pulmonary embolism and infarction 1998 Other specified disorder of gallbladder Presence of IVC filter Pulmonary HTN (HCC) Recurrent pulmonary emboli (HCC) Renal mass, right S/p nephrectomy S/P Difficult robotic radical nephrectomy on the right Sinus pause SOB (shortness of breath) 07/08/2017 SOCIAL HISTORY: Social History Tobacco Use Smoking status: Never Smokeless tobacco: Never Vaping Use Vaping status: Never Used Substance Use Topics Alcohol use: No Drug use: No MEDICATIONS: Prior to Admission Medications fluticasone (FLONASE) 50 mcg/actuation nasal spray Use 2 Sprays in each nostril once daily. Rinse mouth after use. ELIQUIS 5 mg tab(s) buPROPion XL (WELLBUTRIN XL) 150 mg 24 hr tablet two times a day. metoprolol succinate ER (TOPROL XL) 25 mg 24 hr tablet calcium carbonate (CALTRATE) 600 mg calcium (1,500 mg) tab Take 600 mg by mouth. calcitonin,salmon, (MIACALCIN) 200 unit/actuation nasal spray Inhale as instructed. (Patient not taking: Reported on 12/20/2023) dilTIAZem CD (CARDIZEM CD, CARTIA XT) 180 mg 24 hr capsule Take 1 capsule by mouth once daily. atorvastatin (LIPITOR) 40 mg tablet Take 40 mg by mouth once daily. sildenafil (REVATIO) 20 mg tablet Take 1 tablet by mouth two times a day. furosemide (LASIX) 40 mg tablet Take 40 mg by mouth once daily. finasteride (PROSCAR) 5 mg tablet Take 5 mg by mouth every evening. atorvastatin (LIPITOR) 80 mg tablet Take 0.5 tablets by mouth once daily. aspirin, enteric coated (ECOTRIN LOW STRENGTH) 81 mg EC tablet Take 1 tablet by mouth once daily. cholecalciferol (VITAMIN D3) 50 mcg (2,000 unit) tablet Take 2,000 Units by mouth twice daily. escitalopram 20 mg tablet Take 20 mg by mouth once daily. CURRENT ALLERGIES: Patient has no known allergies. COMPLETE REVIEW OF SYSTEMS: See HPI PHYSICAL EXAM: BP 137/92 Pulse 101 Temp (Src) 96 (Temporal) Resp 18 Ht 5' 9 (1.75m) Wt 251 lb 5.2 oz (114.0kg) SpO2 96% BMI 37.10 kg/(m^2). General appearance: Well -appearing, Obese. No apparent distress. Ambulates steadily without assistance. Alert. Oriented. HEENT: Eyes without redness or drainage. Pupils midllne. Neck: Soft, no masses Resp: Positive findings: basilar crackles, no wheezing or rhonchi. No conversational dyspnea. No chest wall deformity or tenderness CV: IRR, S1, S2 , no murmur, no pedal edema GI: Abdomen soft, non-tender, protuberant. Skin: Intact. No rash, lesion, ecchymosis. Psych: normal affect, cognition Extremities: no edema present No cyanosis/clubbing DATA: Diagnostic tests reviewed for today's visit, films were personally reviewed by me: Most recent labs and imaging results. Records from [facility] requested Received notes from [facility] Admission: 2:30 pm Echo Showed LVEF 25-30%; Severe global hypokinesia, RVSP 63 mmHg, 2+ MR (last EF 45% and RSVP was 30) 12/29/2024 Labs: WBC 11.4; Hgb 14.8; Hct 44.2: Plt 181 D DIMER <0.27; Na 136; K 4.5; BUN 39; Cr 2.01 CXR 12/29/2024 Report only; Mild bibasilar atelectasis. Otherwise, no acute findings. 12 Lead EKG shows Afib Rate 116 BBM, LBBB Elevated troponins 64, felt secondary to demand ischemia. Latest Ref Rng 11/28/2024 WBC 3.70 - 11.00 k/uL 7.02 RBC 4.20 - 6.00 m/uL 5.19 Hemoglobin 13.0 - 17.0 g/dL 15.3 Hematocrit 39.0 - 51.0 % 45.6 MCV 80.0 - 100.0 fL 87.9 MCH 26.0 - 34.0 pg 29.5 MCHC 30.5 - 36.0 g/dL 33.6 RDW-CV 11.5 - 15.0 % 14.5 Platelet Count 150 - 400 k/uL 188 MPV 9.0 - 12.7 fL 8.9 (L) Absolute nRBC <0.01 k/uL <0.01 CXR 08/31/24 IMPRESSION: No acute radiographic abnormality. Numerous nodules or calcified nodules in the bilateral lungs. RESULT: Lines, tubes, and devices: A left chest dual-chamber pacemaker in place. Lungs and pleura: There are numerous nodules or calcified nodules in the bilateral lungs. No consolidation. No lung mass. No pleural effusion. No pneumothorax. Cardiomediastinal silhouette: The cardiac silhouette is within normal limits. There are calcified lymph nodes in the bilateral moi. Bones and soft tissues: The spine shows degenerative changes. CT chest 09/29/2022 IMPRESSION: Sequela of prior granulomatous exposure. RESULT: Limitations: None. Lines, tubes, and devices: Left transvenous pacemaker with leads in the right atrium and right ventricle. Lung parenchyma and airways: No consolidation. Numerous bilateral calcified granulomas. No suspicious pulmonary nodule. The central airways are patent. Pleural space: No pleural effusion. No pleural thickening. Lower neck, lymph nodes, and mediastinum: The imaged thyroid gland is normal. Calcified mediastinal and hilar lymph nodes compatible with the sequela of prior granulomatous exposure.. Heart, pericardium, and thoracic vessels: The thoracic aorta and main pulmonary artery are normal in caliber. The cardiac chambers are normal in size. Coronary artery atherosclerotic calcifications are noted, although the study is not optimized for coronary assessment. No pericardial effusion or thickening. Bones and soft tissues: Degenerative changes. Upper abdomen: See separate dictation of CT of abdomen which is reported under separate cover. 6MWT 08/2017: Ambulation of 419 m w/ no desaturation on RA with exertion or at rest PFTs 09/2022 PFTs 08/2017: FVC 2.87L 62% FEV1 2.22L 64% FEV1/FVC 77% TLC 5.47L 78% DlCO 68%-->91% WENDY 08/2022 CONCLUSIONS: - Exam indication: Pre Cardioversion, Pre AF Ablation - The left ventricle is normal in size. Left ventricular systolic function is mildly decreased. EF = 45 5% (visual est.) - The right ventricle is normal in size. Right ventricular systolic function is low normal. RVSP 30 mmHg - The left atrial cavity is dilated. There is no left atrial appendage thrombus. - There is mild (1+) mitral valve regurgitation. TTE 05/2022 - The left ventricle is normal in size. There is mild left ventricular hypertrophy. Left ventricular systolic function is normal. EF = 63 5% (2D biplane) Definity contrast used for endocardial border detection. Difficult to assess LV size and function due to beat to beat variability. - The right ventricle is normal in size. Right ventricular systolic function is low normal. TTE 09/2019 The left ventricle is normal in size. There is no left ventricular hypertrophy. Left ventricular systolic function is mildly decreased. EF = 49 5% (2D biplane) Definity contrast used for endocardial border detection. Grade I left ventricular diastolic dysfunction. - The right ventricle is normal in size. Right ventricular systolic function is normal. - The left atrial cavity is moderately dilated. - There are no significant valvular abnormalities. TTE 10/2018: The left ventricle is normal in size. Left ventricular systolic function is normal. Definity contrast used for endocardial border detection. Indeterminate left ventricular diastolic dysfunction due to AF. - The right ventricle is normal in size. Right ventricular systolic function is low normal. Tricuspid annular displacement is 1.7 cm. - The right atrial cavity is dilated. - There are no significant valvular abnormalities. RHC/LHC 04/2018: Moderate to severe 2 vessel CAD LVEF 55% RHC 04/2018: RVp 38/8 mmHg RAp 17mmHg PAP 55/19 (35mmHg) PAOP 17 mmHg DP TP CO 4.68 PVR 3.84 KINCAID No step up saturations PSG 03/2023 1. Upper Airway Resistance Syndrome (UARS) is a subtype of obstructive sleep apnea (EZIO). Although the overall apnea-hypopnea index (AHI) was in the normal range at 4.1, the respiratory disturbance index (RDI) was in the mild range at 8.4, indicating potential clinical significance. Severity of the sleep-related breathing disorder may be underestimated due to limited recorded REM supine sleep, and to the presence of mild flow and effort decrements associated with arousal and/or oxygen desaturations not meeting established [facility] respiratory event criteria. 2. A moderate supine REM-related component was present with an AHI of 15.0. 3. Mild snoring recorded. 4. Frequent periodic limb movements not causing arousal from sleep and periodic and aperiodic limb movements during wakefulness were observed. These findings are suggestive of restless legs syndrome (RLS). The patient also endorses symptoms suggestive of RLS on the pre-study questionnaire. As RLS remains a clinical diagnosis, further clinical correlation is advised. 5. No significant impact upon sleep by restless legs with a [facility] Arousal Index of 2.4. 6. EKG monitoring revealed atrial fibrillation which is persistent per the EMR. The patient is on Coumadin. ASSESSMENT & PLAN: 1. Hospital discharge follow-up (Z09) - Recent hospitalization for acute on chronic heart failure; symptoms included dyspnea and chest pain. - Signed release of information to obtain hospital records, including echocardiogram, chest X-ray, and lab results. - Follow-up appointment scheduled with Dr. Frias or Sanjay from the pulmonary hypertension team. 2. Pulmonary hypertension (HCC) (I27.20) - Well-controlled on sildenafil 20 mg BID for the past 3-4 years. Medication moved to mid day to stagger BP affecting medications - Awaiting hospital echocardiogram results to assess current status. - Will consider repeat echocardiogram in a few months based on findings. Per [facility]- EF decreased to 20-25% and RVSP increased to 63 Repeat echo in 2 months prior to follow up visit. 3. Persistent atrial fibrillation (HCC) (I48.19) - Persistent atrial fibrillation with heart rate currently at 100 bpm. - Medications adjusted during hospitalization: diltiazem resumed, metoprolol dosage doubled. - Previous attempts at cardioversion unsuccessful. - Follow-up with Dr. Emerson for ongoing management and heart rate control. - On Eliquis since mid-summer for anticoagulation. 4. Chronic congestive heart failure, unspecified heart failure type (HCC) (I50.9) - Recent exacerbation. Will follow up with cardiology - Furosemide dosage doubled during hospitalization. - Symptoms of dyspnea persist; chest pain has improved. - Advised home blood pressure monitoring- which he is doing I spent a total of 40 minutes on the date of the service which included preparing to see the patient, [id number] patient care, completing clinical documentation, obtaining and/or reviewing separately obtained history, performing a medically appropriate examination, counseling and educating the patient/family/caregiver, and communicating with other HCPs (not separately reported). Jesenia Arzate APRN.CNP Pulmonary, Allergy & Critical Care Medicine [facility] [phone] documented in this encounter [facility] 01-03-2025 Note HNO ID: [id number] Author: JESENIA ARZATE APRN.CNP Service: ? Author Type: Nurse Practitioner Type: Progress Notes Filed: 01/03/2025 14:49 Note Text: ESTABLISHED PATIENT FOLLOW-UP SERVICE DATE: 01/01/2025 PRIMARY CARE PHYSICIAN: Smitha Ray IV, DO SUBJECTIVE CHIEF COMPLAINT: Shortness of breath after heart attack Follows with Dr Frias for pulmonary hypertension on sildenafil, H/O PE (06/16/22) and suspected EZIO , ZANE 06/23/2023 PMH: persistent atrial fib (on coumadin) follows with Dr Sparks, back pain, Renal cell carcinoma, S/P right nephrectomy with hemorrhage 04/2022, CKD stage 3, Obesity BMI 37.02, DM II, antiphospholipid antibody, depression, Alisa is a 74-year-old male with a history of pulmonary hypertension and atrial fibrillation, presenting for follow-up after a recent hospitalization for acute on chronic heart failure. Hospital follow up Patient's history of hospitalization is vague. He thinks he was told he had a heart attack. Does not know what tests were done or results. Brings in discharge paperwork with medication adjustments. Diagnosis was for A/C heart failure. States he went to ED for chest pain and shortness of breath States that he has had persistent floating sensation x6-8 months. Lightheadedness when standing. States his PCP had stopped his diltiazem, then his metoprolol a week or so prior to hospitalization. His discharge summary Had him increase his Lasix to 40 mg daily from 20 mg daily. His diltiazem was restarted, metoprolol was restarted and increased to 50 mg daily from 25 mg. Medication timing was staggered, to avoid possible BP lows. States he still has the lightheadedness/Floating sensation without improvement with the medication changes. Still with dyspnea. Occasional sweating episodes. Occasional non-productive cough No longer with chest pain. Has an appointment with Dr Sparks tomorrow. Persistent atrial fibrillation; history of two cardioversions. - Recent switch from Coumadin to Eliquis last summer due to unstable INR levels. Pulmonary Hypertension: - Managed with sildenafil 20 mg BID x3-4 years. - Last echo reportedly showed good control of pulmonary hypertension with RVSP 30. Never smoked. IVC filter removed 08/09/2023 Immunizations reviewed. Influenza, Prevnar 20 05/2023 are up to date. 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 Hyperlipidemia 07/08/2017 LBBB (left bundle branch block) 07/08/2017 Orthostasis Other acute embolism veins 11/2008 left leg Other pulmonary embolism and infarction 1998 Other specified disorder of gallbladder Presence of IVC filter Pulmonary HTN (HCC) Recurrent pulmonary emboli (HCC) Renal mass, right S/p nephrectomy S/P Difficult robotic radical nephrectomy on the right Sinus pause SOB (shortness of breath) 07/08/2017 SOCIAL HISTORY: Social History Tobacco Use Smoking status: Never Smokeless tobacco: Never Vaping Use Vaping status: Never Used Substance Use Topics Alcohol use: No Drug use: No MEDICATIONS: Prior to Admission Medications fluticasone (FLONASE) 50 mcg/actuation nasal spray Use 2 Sprays in each nostril once daily. Rinse mouth after use. ELIQUIS 5 mg tab(s) buPROPion XL (WELLBUTRIN XL) 150 mg 24 hr tablet two times a day. metoprolol succinate ER (TOPROL XL) 25 mg 24 hr tablet calcium carbonate (CALTRATE) 600 mg calcium (1,500 mg) tab Take 600 mg by mouth. calcitonin,salmon, (MIACALCIN) 200 unit/actuation nasal spray Inhale as instructed. (Patient not taking: Reported on 12/20/2023) dilTIAZem CD (CARDIZEM CD, CARTIA XT) 180 mg 24 hr capsule Take 1 capsule by mouth once daily. atorvastatin (LIPITOR) 40 mg tablet Take 40 mg by mouth once daily. sildenafil (REVATIO) 20 mg tablet Take 1 tablet by mouth two times a day. furosemide (LASIX) 40 mg tablet Take 40 mg by mouth once daily. finasteride (PROSCAR) 5 mg tablet Take 5 mg by mouth every evening. atorvastatin (LIPITOR) 80 mg tablet Take 0.5 tablets by mouth once daily. aspirin, enteric coated (ECOTRIN LOW STRENGTH) 81 mg EC tablet Take 1 tablet by mouth once daily. cholecalciferol (VITAMIN D3) 50 mcg (2,000 unit) tablet Take 2,000 Units by mouth twice daily. escitalopram 20 mg tablet Take 20 mg by mouth once daily. CURRENT ALLERGIES: Patient has no known allergies. COMPLETE REVIEW OF SYSTEMS: See HPI PHYSICAL EXAM: BP 137/92 Pulse 101 Temp (Src) 96 (Temporal) Resp 18 Ht 5' 9 (1.75m) Wt 251 lb 5.2 oz (114.0kg) SpO2 96% BMI 37.10 kg/(m2). General appearance: Well -appearing, Obese. No apparent distress. Ambulates steadily without assist (more content not included)... [facility] 12-31-2024 Note [facility] Medical Records Department [address] [place] [address] Discharge Summary 12/31/24 1514 MR#: [id number] Acct: [id number] Name: ALISA HAGAN Rep #: [id number] : 1950 74 From: Alex Castellano MD PCP: Dr. Smitha Ray, DO Status:ADM IN Location: PCU [place] [address] Providers Date of Admission: 12/29/24 Date of Discharge: 12/31/24 Primary Care Physician: Dr. Smitha Ray, DO Consultations 12/29/24 19:14 Consult: Cardiology Routine Consulting Provider: Jayme Ross Reason for Consult: afib EMERGENT Consult: No MD Notified: Yes Date Notified: 12/30/24 Time Notified: 06:41 Method of Notification: Text Reason For Visit: AFIB WITH RVR Diagnosis Discharge Diagnosis (1) Atrial fibrillation: Status: Acute Code(s): I48.91 - Unspecified atrial fibrillation Qualifiers: Atrial fibrillation type: persistent (not longstanding) Qualified Code(s): I48.19 - Other persistent atrial fibrillation (2) Elevated troponin: Status: Acute Code(s): R79.89 - Other specified abnormal findings of blood chemistry Plan Patient is a 74-year-old male who presented to [facility] ED on 12/29/2024 with intermittent chest pain and worsening lightheadedness/dizziness. He also had lightheadedness/dizziness for past few months. Initially his chest discomfort got better with metoprolol but recurred on last Tuesday therefore came to ED 1. A-fib with RVR with chest discomfort and elevated troponins: Patient is being admitted in PCU. Twelve-lead EKG shows A-fib 116 beats minute, LBBB. Troponins minimally elevated 63, 64 and 63 flat and intermittent most related to demand ischemia. Patient is stress test was negative for acute ischemia but showed old infarct. ??? Cardiology consulted. 2D echo shows EF 25 to 30%, severe global hypokinesis, mild to moderate right ventricle systolic dysfunction, RVSP high 63 mmHg, mild TR, 2+ MR. Heart rate is controlled but is still in A-fib. Continue Eliquis 5 mg twice daily. Patient is being discharged on increased dose of furosemide 40 mg daily. Metoprolol succinate increased to 50 mg twice daily, continue diltiazem 180 mg daily. Advised to follow-up with his import clerk Dr. Horan in 2 weeks 2. History of CAD with stenting, hypertension, hyperlipidemia, history of pacemaker placement. ??? Has previously followed with cardiology in [place]. Had stenting x 1 done about 6-7years ago. Patient on aspirin and statin. 12/31: Patient advised to discuss with the import clerk regarding continuation of baby aspirin as he is already on Eliquis. 3. History of pulmonary hypertension ??? Reportedly follows with pulmonology in [place] once a year. Patient on sildenafil, timing changed to the evening as patient having dizziness lightheadedness low BP with all antihypertensive medications at the same time in the morning. Advised to wear thigh- high FERNANDO hose 4. Anxiety/depression ??? Patient anxious on admit with very flat affect. Continue home escitalopram and Wellbutrin, and continue low-dose as needed Xanax that was started on admission. 5. CKD 3a with history of kidney cancer s/p right nephrectomy ??? Creatinine stable at baseline 1.9-2.0 on admit. 6. BPH with obstructive symptoms ??? Stable. Continue home finasteride. 7. Class II obesity ??? BMI 37 on admit. Complicates hospital course, care and prognosis. DVT prophylaxis: Not indicated, on Eliquis CODE STATUS: Full code, verified Discharge medication reconciliation done. Discharge follow-up instructions completed. Discharge process discussed with the patient and all questions were answered to patient's satisfaction. Follow with PCP in 1 to 2 weeks Total time spent, exact 35 minutes on discharge meds reconciliation, examination, coordination of care with nurses and ancillary staff, review of imaging and blood test and discussion with the patient on follow-up instructions. Medications at Discharge Home Medications apixaban 5 mg tablet (Eliquis) 5 mg PO BID 12/29/24 aspirin 81 mg tablet,delayed release (Adult Aspirin Regimen) 81 mg PO QHS 12/29/24 atorvastatin 40 mg tablet 40 mg PO QHS 12/29/24 bupropion HCl 150 mg 24 hr tablet, extended release 300 mg PO QHS 12/29/24 calcium carbonate 600 mg PO BID 12/29/24 cholecalciferol (vitamin D3) 50 mcg (2,000 unit) tablet (D3 DOTS) 50 mcg PO BID 12/29/24 escitalopram oxalate 20 mg tablet 20 mg PO QHS 12/29/24 finasteride 5 mg tablet 5 mg PO DAILY 12/29/24 olopatadine 0.1 % eye drops (Eye Allergy Itch-Redness Relief) 1 drp EACH EYE DAILY 12/29/24 diltiazem HCl 180 mg capsule,extended release 24 hr 180 mg PO BREAKFAST 30 days #0 caps 12/31/24 furosemide 40 mg tablet 40 mg PO DAILY 1 month #30 tabs 12/31/24 metoprolol succinate 25 mg tablet,extended release 24 hr 50 mg (2 x 25 mg) PO BID 30 days #0 tabs 12/31/24 sildenafil (pulm.hypertension) (more content not included)... [facility] 12-03-2024 History of Presen t illness Narrative Alisa Hagan 1950 December 03, 2024 HPI: Alisa Hagan is a 74 year old male who presents as a hospital follow up. Mr. Hagan is a 74 year old male who presented to ER on 06/16/22 for dizziness and difficulty urinating. Of note he was recently admitted with subcapsular hematoma and retroperitoneal bleeding. Had 2 admissions for the same first 1 05/24/2022 to 06/04/2022, total of 11 days, the second 1 was from 06/05/2022 to 06/09/2022 for total duration of 4 days. He has a known history of right renal mass for which she was supposed to undergo robotic right laparoscopic nephrectomy on 06/03/2022. CT abdomen done during the first admission showed large right subcapsular hematoma with area of extravasation from right renal mass with hemorrhage extending inferiorly through the right retroperitoneum. His INR was 1.2 at presentation transferred to MICU for hemorrhagic shock. Had a hemoglobin drop from 13.4-7.6. Underwent IR embolization on 05/25/2022. Aspirin and Coumadin were restarted after consultation with urologist. He also underwent IVC placement on 05/20/2022 by vascular considering his history of multiple unprovoked DVTs and PEs. His first episode was about 25 years back treated with therapeutic anticoagulation and taken off anticoagulation after 6 months. He then had a recurrence in 2009 after being off of coumadin for a month per Dr. Zabala's notes. Urology was on consult during his second admission. His aspirin and warfarin was stopped at the time of second discharge. Per IR notes from 06/16/22: Right common femoral vein was accessed. Initial femoral venography showed occlusive thrombus of the infrarenal IVC and proximal right common femoral vein. Thrombectomy of right common femoral vein and IVC performed without incident. Bilateral pulmonary angiogram performed, showing filling defects in segmental pulmonary arteries bilaterally and central filling defect in the left main pulmonary artery. Left pulmonary artery mechanical thrombectomy performed without incident. Pre-thrombectomy pulmonary artery pressure was measured as a mean of 34mmHg. Post thrombectomy pulmonary artery pressure measured a mean of 33mmHg. On review of chart, pt was seen by [facility] - Dr. Zabala in . Workup at that time was negative for hypercoaguable state EXCEPT for equivocal IgM cardiolipin Abs. 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 He did not have PAI1 testing. Today he is resting in bed. He is currently on hep gtt. He was having his INR checked with PCP. Says that he was doing well on Coumadin and very stable INR. Says the pain in the R flank started in December and was bad enough that it brought him to his knees. Saw outside urology and ultimately says he was not happy with care so he switched. Pt is concerned this morning that urology resident told him he was not going back on blood thinners. In Afib on monitor. No active bleeding. Retrieval of IVC in 08/09/23. Having pain in the RLE. Rolled a lawnmower over it end of April. Did not have it checked out. police magistrate rolled on him while he was sitting on it. Has a very hard lump on the inner side of the RLE just below the knee with erythema on top of it. Bruising noted from the medial knee to the ankle. Some healing with yellow d/c. Was having issues with his INR. Got clots x 3 while trying to regulate it. Got a superficial clot (estephania) LLE; next one was swelling x 2 but never did US to confirm. Has been on Eliquis since October 2023. Not sleeping well. Has to get up to bathroom. Normally 1-2x/night. Sleeps midnight to 3:30-5am. Interval history: Today he is here for follow up. Doing well on Eliquis. Pt complains about SOB. He feel dizziness on standing and walking around. No falls. Last episode of dizziness happened at work. He was standing for several hours while working on work bench. Pt does not remember locking the knees when rising from the seated position during the episode of dizziness. Pt eats twice a day as he is trying to lose weight. Drinks 24 ounces glass of water 2 to 3 times a day. Cannot donate blood because he is on blood thinners. Pt says that the pacemaker battery life is shorter due to increased use. He is not on new medication and supplements. Painful to walk if using the muscles. Not otherwise any issues. No bleeding in other locations. Fatigued. Keeps pushing himself. Sees Dr. 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 Horan at [facility] CARDIOVERSION 02/04/2021 Successful conversion from atrial fibrillation to sinus rhythm, by Dr. Horan at [facility] CC PCI CORONARY INTERVENT 2019 CT ANGIOGRAPHY CHEST 11/30/2016 w/contrast ECHO TRANSESOPHAG CONGEN PROBE [facility] I&R 01/02/2021 EF 55%, +LAKSHMI thrombus, +PFO ECHO TRANSESOPHAG CONGEN PROBE [facility] I&R 02/04/2021 EF 50%, mildly dilated RV, moderately dilated LA, no LAKSHMI thrombus, no PFO ECHOCARDIOGRAM 01/04/2006 [facility] EKG 12 LEAD 04/23/2011 [facility] EVENT MONITOR 07/08/2017 24 hour LAPS SURG CHOLECYSTECTOMY W/CHOLANGIOGRAPHY 04/21/2009 PACEMAKER IMPLANT Left 07/22/2020 Dual chamber, [employer], MRI compatible 6 weeks after implantm by Dr. Horan at [facility] PAST SURGICAL HISTORY OF Right kidney removal May 2022 STRESS TEST 03/11/2006 [facility] WENDY (TRANSESOPHAGEAL ECHO) 11/30/2016 Nakul/Payton Hastings DO TONSILLECTOMY PRIMARY/SECONDARY AGE 14/> Current Outpatient Medications Medication Sig Dispense Refill fluticasone (FLONASE) 50 mcg/actuation nasal spray Use 2 Sprays in each nostril once daily. Rinse mouth after use. 11.1 mL 0 ELIQUIS 5 mg tab(s) buPROPion XL (WELLBUTRIN XL) 150 mg 24 hr tablet two times a day. metoprolol succinate ER (TOPROL XL) 25 mg 24 hr tablet calcium carbonate (CALTRATE) 600 mg calcium (1,500 mg) tab Take 600 mg by mouth. dilTIAZem CD (CARDIZEM CD, CARTIA XT) 180 mg 24 hr capsule Take 1 capsule by mouth once daily. 30 capsule 11 atorvastatin (LIPITOR) 40 mg tablet Take 40 mg by mouth once daily. sildenafil (REVATIO) 20 mg tablet Take 1 tablet by mouth two times a day. 60 tablet 5 furosemide (LASIX) 40 mg tablet Take 40 mg by mouth once daily. finasteride (PROSCAR) 5 mg tablet Take 5 mg by mouth every evening. aspirin, enteric coated (ECOTRIN LOW STRENGTH) 81 mg EC tablet Take 1 tablet by mouth once daily. cholecalciferol (VITAMIN D3) 50 mcg (2,000 unit) tablet Take 2,000 Units by mouth twice daily. escitalopram 20 mg tablet Take 20 mg by mouth once daily. calcitonin,salmon, (MIACALCIN) 200 unit/actuation nasal spray Inhale as instructed. (Patient not taking: Reported on 12/20/2023) atorvastatin (LIPITOR) 80 mg tablet Take 0.5 tablets by mouth once daily. 90 tablet 3 No current facility-administered medications for this visit. ALLERGIES No Known Allergies FAMILY HISTORY Problem Relation Age of Onset Arthritis Mother Cancer Mother Blood Disease Father clotting factor Diabetes Father Seizures Father Blood Disease Sister clotting factor DVT Sister Blood Disease Brother clotting ffactor DVT Brother Social History Tobacco Use Smoking status: Never Smokeless tobacco: Never Vaping Use Vaping status: Never Used Substance Use Topics Alcohol use: No Drug use: No I have reviewed the PMHx, PSHx, social history and ROS on December 03 2024 - all new information noted. Review of Systems: Constitutional: No fevers, chills, drenching night sweats or unintentional weight loss. HEENT: No yellowing of the eyes, no vision changes, no hearing loss or ear pain, no nosebleeds or drainage, no sore throat. Neck: No complaints. Chest: +SOB, no cough, no ESTRADA, no hemoptysis, no wheezing. Breast: No complaints. Heart: No chest pain, pressure or tightness. No racing heartbeat. Abdominal: No pain or difficulty with swallowing, no N/V, no early satiety, no abdominal pain or bloating, no diarrhea or constipation, no change in bowel habits, no blood in the urine. Genitourinary: No pain or burning with urination, no incontinence, no blood in the urine. Extremities: see HPI Neurological: No headaches, no numbness or tingling in the extremities, no double vision. + Dizziness Skin: No rashes or ulcerations, no change in pigmentation. Nodes: no enlargement per patient. Heme: No easy bruising or bleeding, no yellowing of the eyes or darkening of urine. Psychiatric: no anxiety or depression. Immunologic: No recurrent or persistent infections of the sinuses, lungs or urinary tract. Endocrine: No hair or nail changes, no polyuria, polydipsia, or polyphagia. Appetite normal. I have performed the physical exam on December 03, 2024 - all new findings noted below. Physical Exam: BP 118/68[right arm[ Pulse 65 Temp (Src) 97.7 (Oral) Resp 18 Ht 5' 10 (1.78m) Wt 258 lb (117.0kg) SpO2 95% BMI 37.02 kg/(m^2). ECOG PS: 0 Pain Intensity: 0/10 General: Age-appropriate well developed. Appears well. HEENT: Normocephalic, no sclera icterus, external ears normal, oral cavity clear. Neck: Supple, no thyroid nodules, no JVD. Chest: Clear bilaterally, no wheezes, not labored. Heart: Normal S1 and S2, no abnormal sounds, peripheral pulses synchronized. +Afib but rate controlled. Abdomen: Soft, nontender, nondistended, bowel sounds present, no organomegaly or mass, no rigidity. /Rectal: deferred Extremities: No cyanosis, clubbing, gross deformities, or palpable cords. Has a very hard lump on the inner side of the RLE just below the knee with erythema on top of it. Bruising noted from the medial knee to the ankle. Some healing with yellow d/c. Neurological: Cranial nerves II through XII are intact bilaterally, strength normal in the upper and lower extremities, no focal deficits. Skin: Warm and dry with no rashes or ulcerations. Nodes: No palpable adenopathy in the cervical, supraclavicular, infraclavicular, or axillary regions. Hematologic: no bruising or petechiae. Psychiatric: Alert and oriented x3. Emotional well-being assessment was performed. Pt denies depression, distress, and or problems with coping or adjustment. Labs CBC: Recent Labs 11/28/24 1019 WBC 7.02 HB 15.3 HCT 45.6 PLT 188 MCV 87.9 RDWCV 14.5 COAG: No results for input(s): APTT, INR in the last 168 hours. BMP: Recent Labs 11/28/24 1019 GLUC 158* NA 136 K 4.4 CHLOR 102 CO2 25 ANION 9 BUN 44* CREAT 1.81* CHEM: Recent Labs 11/28/24 1019 ALB 4.2 TPROT 7.1 CA 9.8 MG 2.1 Radiology: CT c/a/p 02/22/22: Stable appearance of multiple calcified granulomata throughout both lungs. Stable appearance of the chest compared to prior exam. 1.4 cm right adrenal nodule most consistent with an adrenal adenoma. 3.7 CM RIGHT INTERPOLAR RENAL NEOPLASM. NO LYMPHADENOPATHY OR DEFINITE RENAL VEIN THROMBUS IDENTIFIED ON THIS SINGLE PHASE EXAM. IF NOT ALREADY PERFORMED, UROLOGIC CONSULTATION IS RECOMMENDED. 2 CM RIGHT ADRENAL ADENOMA. CT a/p 05/24/22: Interval development of large right subcapsular hematoma with areas of active extravasation suspected to be from the known right renal mass. Hemorrhage extends inferiorly throughout the right retroperitoneum. Interval placement of inferior vena cava filter. The inferior vena cava is displaced and compressed by right retroperitoneal hemorrhage. VQ 06/07/22: LOW probability VQ scan. If there is a discordant clinical likelihood of thromboembolic disease, additional evaluation with lower extremity venous Dopplers and/or contrast-enhanced PE protocol chest CT may be performed. CT c/a/p 06/16/22: Bilateral pulmonary emboli. There is right-sided heart strain. Stable calcified mediastinal lymph nodes and calcified granulomas. Grossly stable appearance of right upper pole mass. Redemonstration of hemorrhage in the right kidney, right retroperitoneum, and left wrist were obtained. The overall size and configuration is stable from outside study 06/05/2022. No contrast pooling on the delayed images to suggest active contrast extravasation. Diffuse hypoenhancement of the right renal cortex is new from 05/24/2022, which raises the concern of infarct. The right renal artery is grossly patent. Diffuse thrombosis in bilateral lower extremities, iliac veins and IVC, which extends above the IVC filter. IR Procedure 06/17/22: Venography from the right common femoral vein showing thrombus within the proximal right common femoral vein and infrarenal IVC. Technically successful mechanical thrombectomy of right common femoral vein and infrarenal IVC as described above. Angiography of the pulmonary arteries demonstrates chronic appearing filling defect in the posterior basal segment of the right lower lobar pulmonary artery and central filling defect in the left main pulmonary artery extending into the upper and lower lobar branches compatible with pulmonary emboli. Technically successful mechanical thrombectomy of left pulmonary arteries as described above. US BLEs 06/17/22: Positive for extensive occlusive left lower extremity superficial and deep venous thrombosis. No definite evidence of right lower extremity venous thrombosis. CT c/a/p 06/26/22: Trace bilateral pleural effusion along with presumed atelectasis at the posterior portion of each lower lobe. 2. Small atelectasis or pneumonia at the posterior left upper lobe. 3. Evidence of prior granulomatous disease. Status post right nephrectomy. Within the superior renal fossa, there is a somewhat reniform soft tissue mass. This likely represents hematoma although some residual upper pole of the kidney is not excluded. Correlate with surgical findings. 2. Again noted is a large right retroperitoneal hematoma. It is difficult to determine how much of this is old hematoma versus the development of new hematoma. However, portions do appear larger concerning for recurrent bleed. Correlate clinically. 3. There is a small amount of pneumoperitoneum. This may be secondary to the recent surgery. However, bowel perforation is not excludable on this exam. Follow-up as indicated. 4. Secondary findings of left lower extremity DVT again noted. US BLEs 06/29/22: No significant change from the examination performed 06/17/2022. Extensive left lower extremity superficial thrombophlebitis and DVT as noted above. CT a/p 07/01/22: Prior right nephrectomy, stable appearing rounded structure within the superior aspect of the right renal fossa which could represent either residual portion of right kidney or focal hematoma. Right-sided retroperitoneal hematoma extending into and involving the right psoas muscle, slightly more prominent. A small component of high density just anterior to the right common iliac artery may represent area of recent hemorrhage, otherwise, no additional areas of hyperdensity to suggest recent hemorrhage. Resolved pneumoperitoneum, decreased subcutaneous air. US Scrotum 07/02/22: The testicles are heterogeneous in echotexture without focal lesion. Multiple small cysts of the left epididymal head. Echogenic nonvascular focus lateral to the right testicle of unknown etiology. Left-sided varicocele. CT chest/flank 09/29/22: 1. Sequela of prior granulomatous exposure. Status post right nephrectomy. Slight interval decrease in size of a rounded lesion in the superior right nephrectomy bed suggesting slowly resolving hematoma, however continued attention on follow-up imaging is advised. 2. Persistent though significantly decreased in size right retroperitoneal hematoma. 3. No suspect lymphadenopathy. 4. Left renal hypodense lesions are incompletely characterized in the absence of intravenous contrast material though statistically likely cysts. 5. Stable right adrenal adenoma. MRI abd 11/10/22: Enhancing lesion in the renal bed could represent residual renal parenchymal tissue or neoplasm. There is adjacent hematoma. Right adrenal adenoma. Left renal cysts MRI abd 06/14/23: 1. Stable 2.7 cm cystic and solid nodularity in the right surgical bed. Stable fat necrosis in the posterior pararenal 2. No new retroperitoneal lymphadenopathy. 3. A 0.6 cm nodularity in the posterior right paracolic gutter is slightly more conspicuous, possibly due to slice thickness, attention on follow-up is recommended. CT RLE 06/05/24: 7.7 CM SUBCUTANEOUS HEMATOMA IN THE POSTEROMEDIAL PROXIMAL LEG WITH ADJACENT SUBCUTANEOUS FAT EDEMA. Pathology: Soft tissue biopsy of the R renal fossa 12/13/22: Soft tissue mass of right renal fossa, core biopsy: - Benign renal tissue with chronic pyelonephritis and globally sclerotic glomeruli. Assessment and Plan: 1) Bilateral PEs without heart strain - noted on CT chest 06/16/22. - due to being off of OAC for R renal hematoma. - currently on hep gtt. - will need to go back on OAC and recommend coumadin when time. - Dr. Ray refilling drugs and checking INR. - now on Eliquis as of 10/2023 due to hard to control INR. 2) LLE DVT - very extensive 3) Presence of IVC filter - s/p thrombectomy of pulmonary and abd vessels in IR on 06/16/22 due to stent occlusion and clots. - removed 07/2023. 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 - recommend pt goes back on coumadin and will need to stay on this lifelong. - reviewed with pt. - he understands that Eliquis is not FDA approved for APLA. 5) R renal mass the hematoma - urology following him. - needs surgery at some point but per notes, recommending surgery in about 3-4 mo to try and save kidney. - this tumor is likely adding to his hypercoaguable state. - Chronic pyelo on exam and biopsy. 6) Afib 7) RLE hematoma and injury - STAT CT RLE on 06/05/24 shows large hematoma without fracture 8) Dizziness - unclear etiology -advised the discuss with cardiology. I reviewed the above with the patient. Ideally he cannot be without any anticoagulation unless massively bleeding or life threatening. IVC filter will need to remain given it is clogged with clot despite thrombectomy. Will follow. Will add in ELOINA-1 as this was not tested in 2009. if needs ablation or cardioversion, will change to lovenox. Pt to call me if and when that happens. Pt is not allowed to donate blood to [facility] because he is on blood thinners. Needs to speak with Dr. Horan for recurrent episodes of dizziness. Advised to take premier protein shake in the middle of day. Advised to wear compression socks, and increase water intake. Encourage the pt to keep a log of dizziness episode and check the blood sugar level during the episode. PCP is refilling the med. Call the office if need med refill. I will see him back in 6 mo for follow up. Parts of the HPI, ROS, exam and impression/plan may have been copied from my personal previous clinical note and remain pertinent. Current changes have been made and documented today. Other parts or data were deleted if not relevant for today. The documentation has been reviewed and edited as necessary to support the clinical decision making for today's visit. Transcribed by Shanna Garsia, virtual medical reception specialist for Deena Waggoner MD. I, Deena Waggoner MD, personally performed the services described in this documentation. All medical record entries made by the scribe were at my direction and in my presence. I have reviewed the chart and agree that the record reflects my personal performance and is accurate and complete. Deena Waggoner MD documented in this encounter [facility] 12-03-2024 Note HNO ID: [id number] Author: DEENA WAGGONER MD Service: ? Author Type: Physician Type: Progress Notes Filed: 01/13/2025 21:08 Note Text: Alisa Hagan 1950 December 03, 2024 HPI: Alisa Hagan is a 74 year old male who presents as a hospital follow up. Mr. Hagan is a 74 year old male who presented to ER on 06/16/22 for dizziness and difficulty urinating. Of note he was recently admitted with subcapsular hematoma and retroperitoneal bleeding. Had 2 admissions for the same first 1 05/24/2022 to 06/04/2022, total of 11 days, the second 1 was from 06/05/2022 to 06/09/2022 for total duration of 4 days. He has a known history of right renal mass for which she was supposed to undergo robotic right laparoscopic nephrectomy on 06/03/2022. CT abdomen done during the first admission showed large right subcapsular hematoma with area of extravasation from right renal mass with hemorrhage extending inferiorly through the right retroperitoneum. His INR was 1.2 at presentation transferred to MICU for hemorrhagic shock. Had a hemoglobin drop from 13.4-7.6. Underwent IR embolization on 05/25/2022. Aspirin and Coumadin were restarted after consultation with urologist. He also underwent IVC placement on 05/20/2022 by vascular considering his history of multiple unprovoked DVTs and PEs. His first episode was about 25 years back treated with therapeutic anticoagulation and taken off anticoagulation after 6 months. He then had a recurrence in 2009 after being off of coumadin for a month per Dr. Zabala's notes. Urology was on consult during his second admission. His aspirin and warfarin was stopped at the time of second discharge. Per IR notes from 06/16/22: Right common femoral vein was accessed. Initial femoral venography showed occlusive thrombus of the infrarenal IVC and proximal right common femoral vein. Thrombectomy of right common femoral vein and IVC performed without incident. Bilateral pulmonary angiogram performed, showing filling defects in segmental pulmonary arteries bilaterally and central filling defect in the left main pulmonary artery. Left pulmonary artery mechanical thrombectomy performed without incident. Pre-thrombectomy pulmonary artery pressure was measured as a mean of 34mmHg. Post thrombectomy pulmonary artery pressure measured a mean of 33mmHg. On review of chart, pt was seen by [facility] - Dr. Zabala in . Workup at that time was negative for hypercoaguable state EXCEPT for equivocal IgM cardiolipin Abs. 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 He did not have PAI1 testing. Today he is resting in bed. He is currently on hep gtt. He was having his INR checked with PCP. Says that he was doing well on Coumadin and very stable INR. Says the pain in the R flank started in December and was bad enough that it brought him to his knees. Saw outside urology and ultimately says he was not happy with care so he switched. Pt is concerned this morning that urology resident told him he was not going back on blood thinners. In Afib on monitor. No active bleeding. Retrieval of IVC in 08/09/23. Having pain in the RLE. Rolled a lawnmower over it end of April. Did not have it checked out. police magistrate rolled on him while he was sitting on it. Has a very hard lump on the inner side of the RLE just below the knee with erythema on top of it. Bruising noted from the medial knee to the ankle. Some healing with yellow d/c. Was having issues with his INR. Got clots x 3 while trying to regulate it. Got a superficial clot (estephania) LLE; next one was swelling x 2 but never did US to confirm. Has been on Eliquis since October 2023. Not sleeping well. Has to get up to bathroom. Normally 1-2x/night. Sleeps midnight to 3:30-5am. Interval history: Today he is here for follow up. Doing well on Eliquis. Pt complains about SOB. He feel dizziness on standing and walking around. No falls. Last episode of dizziness happened at work. He was standing for several hours while working on work bench. Pt does not remember locking the knees when rising from the seated position during the episode of dizziness. Pt eats twice a day as he is trying to lose weight. Drinks 24 ounces glass of water 2 to 3 times a day. Cannot donate blood because he is on blood thinners. Pt says that the pacemaker battery life is shorter due to increased use. He is not on new medication and supplements. Painful to walk if using the muscles. Not otherwise any issues. No bleeding in other locations. Fatigued. Keeps pushing himself. Sees Dr. 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 on chronic (more content not included)... [facility] 09-24-2024 Instructions Janie Orellana APRN.[employer] - 09/24/2024 4:08 PM EST RESPIRATORY INFECTION GENERAL INFORMATION: An upper respiratory tract infection, or cold, is a viral infection of the airway passages. It can be caused by any one of almost 200 different viruses. Common symptoms include a runny or stuffy nose, sneezing, watery eyes, sore throat, cough, and slight fever. Colds are contagious, especially during the first 3 or 4 days and cannot be cured by antibiotics. They are spread by coughs, sneezes, and direct contact, especially [id number]. A respiratory tract infection usually clears up in a few days, but some people may be sick for a week or two. INSTRUCTIONS: 1. Be careful not to blow your nose too hard because this may cause a nosebleed. 2. Use a cool-mist humidifier (vaporizer) to increase air moisture. This will make it easier for you to breathe. Do not use hot steam. 3. Rest as much as possible and get plenty of sleep. 4. Wash your hands often, especially after you blow your nose. Cover your mouth and nose with a tissue when you sneeze or cough. 5. Drink plenty of clear fluids (8 glasses a day) such as water, fruit juice, tea, clear soups, and carbonated beverages. CONTACT YOUR DOCTOR IF : 1. Your fever lasts more than 3 days. 2. You have a sore throat that gets worse or you see white or yellow spots in your throat. 3. Your cough gets worse or lasts more than 10 days. 4. You develop a rash anywhere on your skin. 5. You have an earache or a headache. 6. You have thick greenish or yellowish discharge from your nose. RETURN IMMEDIATELY IF: 1. You cough up thick yellow, green, tatum, or bloody sputum. 2. You have difficulty breathing, pain in your chest, or your skin or nails look tatum or blue. 3. You have shaking chills or a temperature over 102 F (39 C). documented in this encounter [facility] 09-24-2024 Note HNO ID: [id number] Author: JANIE ORELLANA APRN.CNP Service: ? Author Type: Nurse Practitioner Type: Progress Notes Filed: 09/24/2024 16:34 Note Text: This note was created using NoteWriter. Subjective Alisa Hagan is a 74 year old male. 74 year old male with PMH afib and PE (Eliquis), HTN, hyperlipidemia, HTN, pacemaker, CTEPH and obesity presents for illness Acute onset 3 days ago +cough Non productive +chest tightness +rhinorrhea +body aches +fatigue Denies eye, ear or nose complaints Denies N/V/D Denies tobacco usage Has used dayquil and nyquil with mild relief Of note, he was seen here on 08/31/24 Diagnosed with cough, RX Doxy. RX Tessalon Perles The history is provided by the patient. No night worker was used. Cough This is a new problem. The current episode started more than 2 days ago. The problem occurs constantly. The problem has not changed since onset.The cough is Non-productive. Associated symptoms include chills and myalgias. Pertinent negatives include no chest pain, no sweats, no weight loss, no ear congestion, no ear pain, no headaches, no rhinorrhea, no sore throat, no shortness of breath, no wheezing and no eye redness. He has tried cough syrup for the symptoms. The treatment provided no relief. He is not a smoker. His past medical history does not include bronchitis, pneumonia, bronchiectasis, COPD, emphysema or asthma. 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 on chronic Coumadin,managed by pcp Hyperlipidemia 07/08/2017 LBBB (left bundle branch block) 07/08/2017 Orthostasis Other acute embolism veins 11/2008 left leg Other pulmonary embolism and infarction 1998 Other specified disorder of gallbladder Presence of IVC filter Pulmonary HTN (HCC) Recurrent pulmonary emboli (HCC) Renal mass, right S/p nephrectomy S/P Difficult robotic radical nephrectomy on the right Sinus pause SOB (shortness of breath) 07/08/2017 PAST SURGICAL HISTORY Procedure Laterality Date CARDIOVERSION 09/12/2020 Successful conversion from atrial fibrillation to atrial paced rhythm, by Dr. Horan at [facility] CARDIOVERSION 02/04/2021 Successful conversion from atrial fibrillation to sinus rhythm, by Dr. Horan at [facility] CC PCI CORONARY INTERVENT 2019 CT ANGIOGRAPHY CHEST 11/30/2016 w/contrast ECHO TRANSESOPHAG CONGEN PROBE [facility] IANDR 01/02/2021 EF 55%, +LAKSHMI thrombus, +PFO ECHO TRANSESOPHAG CONGEN PROBE [facility] IANDR 02/04/2021 EF 50%, mildly dilated RV, moderately dilated LA, no LAKSHMI thrombus, no PFO ECHOCARDIOGRAM 01/04/2006 [facility] EKG 12 LEAD 04/23/2011 [facility] EVENT MONITOR 07/08/2017 24 hour LAPS SURG CHOLECYSTECTOMY W/CHOLANGIOGRAPHY 04/21/2009 PACEMAKER IMPLANT Left 07/22/2020 Dual chamber, [employer], MRI compatible 6 weeks after implantm by Dr. Horan at [facility] PAST SURGICAL HISTORY OF Right kidney removal May 2022 STRESS TEST 03/11/2006 [facility] WENDY (TRANSESOPHAGEAL ECHO) 11/30/2016 Nakul/Payton Hastings DO TONSILLECTOMY PRIMARY/SECONDARY AGE 14/> ALLERGIES Patient has no known allergies. MEDICATIONS ELIQUIS 5 mg tab(s) buPROPion XL (WELLBUTRIN XL) 150 mg 24 hr tablet two times a day. metoprolol succinate ER (TOPROL XL) 25 mg 24 hr tablet atorvastatin (LIPITOR) 40 mg tablet Take 40 mg by mouth once daily. sildenafil (REVATIO) 20 mg tablet Take 1 tablet by mouth two times a day. furosemide (LASIX) 40 mg tablet Take 40 mg by mouth once daily. finasteride (PROSCAR) 5 mg tablet Take 5 mg by mouth every evening. aspirin, enteric coated (ECOTRIN LOW STRENGTH) 81 mg EC tablet Take 1 tablet by mouth once daily. cholecalciferol (VITAMIN D3) 50 mcg (2,000 unit) tablet Take 2,000 Units by mouth twice daily. escitalopram 20 mg tablet Take 20 mg by mouth once daily. methylPREDNISolone (MEDROL, ZHENG,) 4 mg Dose-Pack Follow dosing instructions, take with food. fluticasone (FLONASE) 50 mcg/actuation nasal spray Use 2 Sprays in each nostril once daily. Rinse mouth after use. calcium carbonate (CALTRATE) 600 mg calcium (1,500 mg) tab Take 600 mg by mouth. calcitonin,salmon, (MIACALCIN) 200 unit/actuation nasal spray Inhale as instructed. (Patient not taking: Reported on 12/20/2023) dilTIAZem CD (CARDIZEM CD, CARTIA XT) 180 mg 24 hr capsule Take 1 capsule by mouth once daily. warfarin (COUMADIN) 2 mg tablet Take 2 mg by mouth daily as directed. 2 MG EVERy Tuesday, Tuesday, Tuesday and tuesday (Patient not taking: Reported on 12/20/2023) warfarin (COUMADIN) 5 mg tablet Take 1 tablet by mouth once daily. (Patient not taking: Reported on 12/20/2023) atorvastatin (LIPI (more content not included)... [facility] 09-24-2024 History of Presen t illness Narrative This note was created using Celsionter. Subjective Alisa Hagan is a 74 year old male. 74 year old male with PMH afib and PE (Eliquis), HTN, hyperlipidemia, HTN, pacemaker, CTEPH and obesity presents for illness Acute onset 3 days ago +cough Non productive +chest tightness +rhinorrhea +body aches +fatigue Denies eye, ear or nose complaints Denies N/V/D Denies tobacco usage Has used dayquil and nyquil with mild relief Of note, he was seen here on 08/31/24 Diagnosed with cough, RX Doxy. RX Tessalon Perlkhadijah The history is provided by the patient. No night worker was used. Cough This is a new problem. The current episode started more than 2 days ago. The problem occurs constantly. The problem has not changed since onset.The cough is Non-productive. Associated symptoms include chills and myalgias. Pertinent negatives include no chest pain, no sweats, no weight loss, no ear congestion, no ear pain, no headaches, no rhinorrhea, no sore throat, no shortness of breath, no wheezing and no eye redness. He has tried cough syrup for the symptoms. The treatment provided no relief. He is not a smoker. His past medical history does not include bronchitis, pneumonia, bronchiectasis, COPD, emphysema or asthma. 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 Horan at [facility] CARDIOVERSION 02/04/2021 Successful conversion from atrial fibrillation to sinus rhythm, by Dr. Horan at [facility] CC PCI CORONARY INTERVENT 2018 CT ANGIOGRAPHY CHEST 11/30/2016 w/contrast ECHO TRANSESOPHAG CONGEN PROBE [facility] I&R 01/02/2021 EF 55%, +LAKSHMI thrombus, +PFO ECHO TRANSESOPHAG CONGEN PROBE [facility] I&R 02/04/2021 EF 50%, mildly dilated RV, moderately dilated LA, no LAKSHMI thrombus, no PFO ECHOCARDIOGRAM 01/04/2006 [facility] EKG 12 LEAD 04/23/2011 [facility] EVENT MONITOR 07/08/2017 24 hour LAPS SURG CHOLECYSTECTOMY W/CHOLANGIOGRAPHY 04/21/2009 PACEMAKER IMPLANT Left 07/22/2020 Dual chamber, [employer], MRI compatible 6 weeks after implantm by Dr. Horan at [facility] PAST SURGICAL HISTORY OF Right kidney removal May 2022 STRESS TEST 03/11/2006 [facility] WENDY (TRANSESOPHAGEAL ECHO) 11/30/2016 Nakul/Payton Hastings DO TONSILLECTOMY PRIMARY/SECONDARY AGE 14/> ALLERGIES Patient has no known allergies. MEDICATIONS ELIQUIS 5 mg tab(s) buPROPion XL (WELLBUTRIN XL) 150 mg 24 hr tablet two times a day. metoprolol succinate ER (TOPROL XL) 25 mg 24 hr tablet atorvastatin (LIPITOR) 40 mg tablet Take 40 mg by mouth once daily. sildenafil (REVATIO) 20 mg tablet Take 1 tablet by mouth two times a day. furosemide (LASIX) 40 mg tablet Take 40 mg by mouth once daily. finasteride (PROSCAR) 5 mg tablet Take 5 mg by mouth every evening. aspirin, enteric coated (ECOTRIN LOW STRENGTH) 81 mg EC tablet Take 1 tablet by mouth once daily. cholecalciferol (VITAMIN D3) 50 mcg (2,000 unit) tablet Take 2,000 Units by mouth twice daily. escitalopram 20 mg tablet Take 20 mg by mouth once daily. methylPREDNISolone (MEDROL, ZHENG,) 4 mg Dose-Pack Follow dosing instructions, take with food. fluticasone (FLONASE) 50 mcg/actuation nasal spray Use 2 Sprays in each nostril once daily. Rinse mouth after use. calcium carbonate (CALTRATE) 600 mg calcium (1,500 mg) tab Take 600 mg by mouth. calcitonin,salmon, (MIACALCIN) 200 unit/actuation nasal spray Inhale as instructed. (Patient not taking: Reported on 12/20/2023) dilTIAZem CD (CARDIZEM CD, CARTIA XT) 180 mg 24 hr capsule Take 1 capsule by mouth once daily. warfarin (COUMADIN) 2 mg tablet Take 2 mg by mouth daily as directed. 2 MG EVERy Tuesday, Tuesday, Tuesday and tuesday (Patient not taking: Reported on 12/20/2023) warfarin (COUMADIN) 5 mg tablet Take 1 tablet by mouth once daily. (Patient not taking: Reported on 12/20/2023) atorvastatin (LIPITOR) 80 mg tablet Take 0.5 tablets by mouth once daily. FAMILY HISTORY Problem Relation Age of Onset Arthritis Mother Cancer Mother Blood Disease Father clotting factor Diabetes Father Seizures Father Blood Disease Sister clotting factor DVT Sister Blood Disease Brother clotting ffactor DVT Brother Social History Tobacco Use Smoking status: Never Smokeless tobacco: Never Vaping Use Vaping status: Never Used Substance Use Topics Alcohol use: No Drug use: No Review of Systems Constitutional: Positive for chills and fatigue. Negative for weight loss. HENT: Positive for congestion. Negative for ear pain, rhinorrhea and sore throat. Eyes: Negative for pain, discharge, redness and itching. Respiratory: Positive for cough and chest tightness. Negative for shortness of breath and wheezing. Cardiovascular: Negative for chest pain. Gastrointestinal: Negative for abdominal pain, diarrhea, nausea and vomiting. Musculoskeletal: Positive for myalgias. Skin: Negative for color change, pallor, rash and wound. Allergic/Immunologic: Negative for environmental allergies, food allergies and immunocompromised state. Neurological: Negative for headaches. Hematological: Negative for adenopathy. Psychiatric/Behavioral: Negative for agitation and behavioral problems. Objective BP 128/80 Pulse 74 Temp 36.1 C (96.9 F) Resp 16 Wt 117.5 kg (259 lb 0.7 oz) SpO2 96% BMI 37.17 kg/m Physical Exam Vitals and nursing note reviewed. Constitutional: General: He is not in acute distress. Appearance: Normal appearance. He is not ill-appearing, toxic-appearing or diaphoretic. HENT: Head: Normocephalic and atraumatic. Right Ear: External ear normal. Left Ear: External ear normal. Nose: Congestion present. No rhinorrhea. Mouth/Throat: Mouth: Mucous membranes are moist. Pharynx: Oropharynx is clear. Posterior oropharyngeal erythema present. No oropharyngeal exudate. Eyes: General: Right eye: No discharge. Left eye: No discharge. Extraocular Movements: Extraocular movements intact. Conjunctiva/sclera: Conjunctivae normal. Pupils: Pupils are equal, round, and reactive to light. Cardiovascular: Rate and Rhythm: Normal rate and regular rhythm. Pulses: Normal pulses. Heart sounds: Normal heart sounds. No murmur heard. No friction rub. No gallop. Pulmonary: Effort: Pulmonary effort is normal. No respiratory distress. Breath sounds: Normal breath sounds. No stridor. No wheezing, rhonchi or rales. Chest: Chest wall: No tenderness. Abdominal: General: Abdomen is flat. There is no distension. Palpations: Abdomen is soft. There is no mass. Tenderness: There is no abdominal tenderness. There is no guarding or rebound. Hernia: No hernia is present. Musculoskeletal: General: No swelling, tenderness, deformity or signs of injury. Normal range of motion. Cervical back: Normal range of motion and neck supple. No rigidity or tenderness. Right lower leg: No edema. Left lower leg: No edema. Lymphadenopathy: Cervical: Cervical adenopathy present. Skin: General: Skin is warm and dry. Capillary Refill: Capillary refill takes less than 2 seconds. Coloration: Skin is not jaundiced or pale. Findings: No bruising, lesion or rash. Neurological: General: No focal deficit present. Mental Status: He is alert and oriented to person, place, and time. Cranial Nerves: No cranial nerve deficit. Sensory: No sensory deficit. Motor: No weakness. Coordination: Coordination normal. Gait: Gait normal. Deep Tendon Reflexes: Reflexes normal. Psychiatric: Mood and Affect: Mood normal. Behavior: Behavior normal. Thought Content: Thought content normal. Assessment and Plan ASSESSMENT/PLAN: 1. Acute cough - ICD9: 786.2, ICD10: R05.1 (primary diagnosis) X 3 days Seen here on 09/11/24 for same CXR negative States he felt better until 3 days ago Lungs CTA - XR CHEST 2V FRONTAL/LAT-declines RX Flonase RX Medrol Dose Pack 2. URI, acute - ICD9: 465.9, ICD10: J06.9 - Discussed viral etiology and rationale for treatment. - Symptomatic treatment with prn analgesia - Supportive care with fluids and rest - INFLUENZA A&B MOLECULAR (POC) - XR CHEST 2V FRONTAL/LAT Janie Orellana APRN.ELECTRIC [employer] WELDER documented in this encounter [facility] 08-31-2024 History of Presen t illness Narrative Radiology Service Progress Note PATIENT NAME: Alisa Hagan DATE OF SERVICE: August 31, 2024 TIME: 2:22 PM PATIENT IDENTITY VERIFICATION COMPLETED USING TWO (2) IDENTIFIERS: Name and Date of confirmed by patient verbally. FALL SCREENING: Has the patient had 2 falls in the last year or 1 fall with injury or currently using an Ambulatory Assistive Device (Walker, Cane, Wheelchair, Crutches, etc.)? No PATIENT GENDER DATA: Male PATIENT RELEVANT IMPLANT DATA REVIEWED: Yes PATIENT PRESENTS WITH AN IMPLANTABLE OR ATTACHED WIREWORKER SUPERVISOR: No RADIOLOGY DEPARTMENT: General X-ray: Exam(s) Completed: Chest X-Ray PERIPHERAL IV DATA: Not applicable SIGNED BY: RT Gale(R) August 31, 2024 2:22 PM documented in this encounter [facility] 08-31-2024 Note HNO ID: [id number] Author: MATTHIAS MONACO RT(Portillo) Service: ? Author Type: Research Editor Type: Progress Notes Filed: 08/31/2024 14:30 Note Text: Radiology Service Progress Note PATIENT NAME: Alisa Hagan DATE OF SERVICE: August 31, 2024 TIME: 2:22 PM PATIENT IDENTITY VERIFICATION COMPLETED USING TWO (2) IDENTIFIERS: Name and Date of confirmed by patient verbally. FALL SCREENING: Has the patient had 2 falls in the last year or 1 fall with injury or currently using an Ambulatory Assistive Device (Walker, Cane, Wheelchair, Crutches, etc.)? No PATIENT GENDER DATA: Male PATIENT RELEVANT IMPLANT DATA REVIEWED: Yes PATIENT PRESENTS WITH AN IMPLANTABLE OR ATTACHED WIREWORKER SUPERVISOR: No RADIOLOGY DEPARTMENT: General X-ray: Exam(s) Completed: Chest X-Ray PERIPHERAL IV DATA: Not applicable SIGNED BY: RT Gale(R) August 31, 2024 2:22 PM [facility] 08-31-2024 Note HNO ID: [id number] Author: KAMERON CONTRERAS APRN.ELECTRIC AR[employer] WELDER Service: ? Author Type: Nurse Practitioner Type: Progress Notes Filed: 08/31/2024 15:23 Note Text: Subjective HPI Nontoxic-appearing 74-year-old male presents urgent care chief complaint cough chest congestion sore throat fever body aches chills. Most bothersome symptom today is cough. Feels like body aches and chills have improved. Has had increased sinus pressure. Sinus drainage that became green/yellow. Sick contacts unknown OTC medication little to no success. No chest pain shortness of breath pleuritic pain or hemoptysis. Past medical history prescription medications allergies reviewed. 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 Horan at [facility] CARDIOVERSION 02/04/2021 Successful conversion from atrial fibrillation to sinus rhythm, by Dr. Horan at [facility] CC PCI CORONARY INTERVENT 2018 CT ANGIOGRAPHY CHEST 11/30/2016 w/contrast ECHO TRANSESOPHAG CONGEN PROBE [facility] IAND 01/02/2021 EF 55%, +LAKSHMI thrombus, +PFO ECHO TRANSESOPHAG CONGEN PROBE [facility] IANDR 02/04/2021 EF 50%, mildly dilated RV, moderately dilated LA, no LAKSHMI thrombus, no PFO ECHOCARDIOGRAM 01/04/2006 [facility] EKG 12 LEAD 04/23/2011 [facility] EVENT MONITOR 07/08/2017 24 hour LAPS SURG CHOLECYSTECTOMY W/CHOLANGIOGRAPHY 04/21/2009 PACEMAKER IMPLANT Left 07/22/2020 Dual chamber, [employer], MRI compatible 6 weeks after implantm by Dr. Horan at [facility] PAST SURGICAL HISTORY OF Right kidney removal May 2022 STRESS TEST 03/11/2006 [facility] WENDY (TRANSESOPHAGEAL ECHO) 11/30/2016 Nakul/Payton Hastings DO TONSILLECTOMY PRIMARY/SECONDARY AGE 14/> ALLERGIES Patient has no known allergies. MEDICATIONS ELIQUIS 5 mg tab(s)Disp: Rfl: buPROPion XL (WELLBUTRIN XL) 150 mg 24 hr tablettwo times a day.Disp: Rfl: metoprolol succinate ER (TOPROL XL) 25 mg 24 hr tabletDisp: Rfl: atorvastatin (LIPITOR) 40 mg tabletTake 40 mg by mouth once daily.Disp: Rfl: sildenafil (REVATIO) 20 mg tabletTake 1 tablet by mouth two times a day.Disp: 60 tabletRfl: 5 furosemide (LASIX) 40 mg tabletTake 40 mg by mouth once daily.Disp: Rfl: finasteride (PROSCAR) 5 mg tabletTake 5 mg by mouth every evening.Disp: Rfl: aspirin, enteric coated (ECOTRIN LOW STRENGTH) 81 mg EC tabletTake 1 tablet by mouth once daily.Disp: Rfl: cholecalciferol (VITAMIN D3) 50 mcg (2,000 unit) tabletTake 2,000 Units by mouth twice daily. Disp: Rfl: escitalopram 20 mg tabletTake 20 mg by mouth once daily.Disp: Rfl: calcium carbonate (CALTRATE) 600 mg calcium (1,500 mg) tabTake 600 mg by mouth.Disp: Rfl: calcitonin,salmon, (MIACALCIN) 200 unit/actuation nasal sprayInhale as instructed.Disp: Rfl: (Patient not taking: Reported on 12/20/2023) dilTIAZem CD (CARDIZEM CD, CARTIA XT) 180 mg 24 hr capsuleTake 1 capsule by mouth once daily.Disp: 30 capsuleRfl: 11 warfarin (COUMADIN) 2 mg tabletTake 2 mg by mouth daily as directed. 2 MG EVERy Tuesday, Tuesday, Tuesday and tuesdayDisp: Rfl: (Patient not taking: Reported on 12/20/2023) warfarin (COUMADIN) 5 mg tabletTake 1 tablet by mouth once daily.Disp: 30 tabletRfl: 0 (Patient not taking: Reported on 12/20/2023) atorvastatin (LIPITOR) 80 mg tabletTake 0.5 tablets by mouth once daily.Disp: 90 tabletRfl: 3 FAMILY HISTORY Problem Relation Age of Onset Arthritis Mother Cancer Mother Blood Disease Father clotting factor Diabetes Father Seizures Father Blood Disease Sister clotting factor DVT Sister Blood Disease Brother clotting ffactor DVT Brother Social History Tobacco Use Smoking status: Never Smokeless tobacco: Never Vaping Use Vaping status: Never Used Substance Use Topics Alcohol use: No Drug use: No BP 117/73 Pulse 84 Temp 36.4 ?C (97.5 ?F) Resp 18 Wt 115.4 kg (254 lb 6.6 oz) SpO2 95% BMI 36.50 kg/m? Review of Systems Constitutional: Positive for malaise (more content not included)... [facility] 08-31-2024 History of Presen t illness Narrative Subjective HPI Nontoxic-appearing 74-year-old male presents urgent care chief complaint cough chest congestion sore throat fever body aches chills. Most bothersome symptom today is cough. Feels like body aches and chills have improved. Has had increased sinus pressure. Sinus drainage that became green/yellow. Sick contacts unknown OTC medication little to no success. No chest pain shortness of breath pleuritic pain or hemoptysis. Past medical history prescription medications allergies reviewed. 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 Horan at [facility] CARDIOVERSION 02/04/2021 Successful conversion from atrial fibrillation to sinus rhythm, by Dr. Horan at [facility] CC PCI CORONARY INTERVENT 2018 CT ANGIOGRAPHY CHEST 11/30/2016 w/contrast ECHO TRANSESOPHAG CONGEN PROBE [facility] I&R 01/02/2021 EF 55%, +LAKSHMI thrombus, +PFO ECHO TRANSESOPHAG CONGEN PROBE [facility] I&R 02/04/2021 EF 50%, mildly dilated RV, moderately dilated LA, no LAKSHMI thrombus, no PFO ECHOCARDIOGRAM 01/04/2006 [facility] EKG 12 LEAD 04/23/2011 [facility] EVENT MONITOR 07/08/2017 24 hour LAPS SURG CHOLECYSTECTOMY W/CHOLANGIOGRAPHY 04/21/2009 PACEMAKER IMPLANT Left 07/22/2020 Dual chamber, [employer], MRI compatible 6 weeks after implantm by Dr. Horan at [facility] PAST SURGICAL HISTORY OF Right kidney removal May 2022 STRESS TEST 03/11/2006 [facility] WENDY (TRANSESOPHAGEAL ECHO) 11/30/2016 Nakul/Payton Hastings DO TONSILLECTOMY PRIMARY/SECONDARY AGE 14/> ALLERGIES Patient has no known allergies. MEDICATIONS ELIQUIS 5 mg tab(s)^^Disp: ^Rfl: buPROPion XL (WELLBUTRIN XL) 150 mg 24 hr tablet^two times a day.^Disp: ^Rfl: metoprolol succinate ER (TOPROL XL) 25 mg 24 hr tablet^^Disp: ^Rfl: atorvastatin (LIPITOR) 40 mg tablet^Take 40 mg by mouth once daily.^Disp: ^Rfl: sildenafil (REVATIO) 20 mg tablet^Take 1 tablet by mouth two times a day.^Disp: 60 tablet^Rfl: 5 furosemide (LASIX) 40 mg tablet^Take 40 mg by mouth once daily.^Disp: ^Rfl: finasteride (PROSCAR) 5 mg tablet^Take 5 mg by mouth every evening.^Disp: ^Rfl: aspirin, enteric coated (ECOTRIN LOW STRENGTH) 81 mg EC tablet^Take 1 tablet by mouth once daily.^Disp: ^Rfl: cholecalciferol (VITAMIN D3) 50 mcg (2,000 unit) tablet^Take 2,000 Units by mouth twice daily. ^Disp: ^Rfl: escitalopram 20 mg tablet^Take 20 mg by mouth once daily.^Disp: ^Rfl: calcium carbonate (CALTRATE) 600 mg calcium (1,500 mg) tab^Take 600 mg by mouth.^Disp: ^Rfl: calcitonin,salmon, (MIACALCIN) 200 unit/actuation nasal spray^Inhale as instructed.^Disp: ^Rfl: (Patient not taking: Reported on 12/20/2023) dilTIAZem CD (CARDIZEM CD, CARTIA XT) 180 mg 24 hr capsule^Take 1 capsule by mouth once daily.^Disp: 30 capsule^Rfl: 11 warfarin (COUMADIN) 2 mg tablet^Take 2 mg by mouth daily as directed. 2 MG EVERy Tuesday, Tuesday, Tuesday and tuesday^Disp: ^Rfl: (Patient not taking: Reported on 12/20/2023) warfarin (COUMADIN) 5 mg tablet^Take 1 tablet by mouth once daily.^Disp: 30 tablet^Rfl: 0 (Patient not taking: Reported on 12/20/2023) atorvastatin (LIPITOR) 80 mg tablet^Take 0.5 tablets by mouth once daily.^Disp: 90 tablet^Rfl: 3 FAMILY HISTORY Problem Relation Age of Onset Arthritis Mother Cancer Mother Blood Disease Father clotting factor Diabetes Father Seizures Father Blood Disease Sister clotting factor DVT Sister Blood Disease Brother clotting ffactor DVT Brother Social History Tobacco Use Smoking status: Never Smokeless tobacco: Never Vaping Use Vaping status: Never Used Substance Use Topics Alcohol use: No Drug use: No BP 117/73 Pulse 84 Temp 36.4 C (97.5 F) Resp 18 Wt 115.4 kg (254 lb 6.6 oz) SpO2 95% BMI 36.50 kg/m Review of Systems Constitutional: Positive for malaise/fatigue. Negative for chills and fever. HENT: Positive for congestion and sinus pain. Negative for ear discharge, ear pain and sore throat. Eyes: Negative for blurred vision, pain, discharge and redness. Respiratory: Positive for cough. Negative for hemoptysis, sputum production, shortness of breath, wheezing and stridor. Cardiovascular: Negative for chest pain. Gastrointestinal: Negative for abdominal pain, diarrhea, nausea and vomiting. Musculoskeletal: Positive for myalgias. Skin: Negative for itching and rash. Neurological: Negative for dizziness and headaches. Objective Physical Exam Constitutional: General: He is not in acute distress. Appearance: He is not diaphoretic. HENT: Head: Normocephalic. Jaw: No trismus, tenderness, swelling or pain on movement. Nose: Congestion present. Right Sinus: Maxillary sinus tenderness present. Left Sinus: Maxillary sinus tenderness present. Mouth/Throat: Mouth: Mucous membranes are moist. Pharynx: Oropharynx is clear. Uvula midline. No pharyngeal swelling, oropharyngeal exudate, posterior oropharyngeal erythema or uvula swelling. Eyes: Conjunctiva/sclera: Conjunctivae normal. Pupils: Pupils are equal, round, and reactive to light. Cardiovascular: Rate and Rhythm: Normal rate and regular rhythm. Heart sounds: Normal heart sounds. Pulmonary: Effort: Pulmonary effort is normal. No tachypnea, accessory muscle usage or respiratory distress. Breath sounds: Normal breath sounds. No stridor. No wheezing, rhonchi or rales. Abdominal: General: There is no distension. Palpations: Abdomen is soft. Tenderness: There is no abdominal tenderness. There is no guarding or rebound. Musculoskeletal: Cervical back: Normal range of motion and neck supple. No edema, erythema, rigidity or tenderness. No pain with movement. Normal range of motion. Lymphadenopathy: Cervical: No cervical adenopathy. Skin: General: Skin is warm and dry. Neurological: Mental Status: He is alert and oriented to person, place, and time. ASSESSMENT/PLAN: 1. Acute cough - ICD9: 786.2, ICD10: R05.1 (primary diagnosis) - XR CHEST 2V FRONTAL/LAT 2. Sinobronchitis - ICD9: 473.9, 490, ICD10: J32.9, J40 IMPRESSION: No acute radiographic abnormality. Numerous nodules or calcified nodules in the bilateral lungs. No acute findings noted on x-ray. Notified of calcified nodules. Treat as sinobronchitis. Placed on doxycycline Tessalon Perles. Patient was educated on supportive therapies. Patient will follow up with primary care provider as needed. Patient was instructed to immediately proceed to emergency room for any new, worsening, or symptoms lasting longer than anticipated. The patient's clinical presentation is otherwise unremarkable at this time. Based on exam and clinical finding, the patient is stable for discharge. Plan of care was discussed with patient. Patient verbalizes understanding and agrees to plan of care. This note was generated using [employer] software. It may contain errors in wording, punctuation, or spelling. Kameron Contreras APRN.ELECTRIC ARC WELDER documented in this encounter [facility] 07-19-2024 Note PPM check, dual lead system with programming. ID x2. Here for routine PM evaluation. Incision/pocket left pectoral area without signs of infection. c/o having a lightheaded/ floaty feeling QD. Not continuous. Presenting rhythm atrial fib w/ RV demand pacing. Interrogation shows 162 nonsustained or SVT events since last remote check done 04-12-24. Mode switch chronic. EGM's show RVR. Rates 132-190 BPM. Most recent events on . Longest SVT event 4 min, rate 163 BPM. Takes Eliquis BID and 81 mg asa QD. Recommended replacement time is 8 more years. Lead impedances, sensing and pacing thresholds stable. No changes made. Reassured PM function stable. Counters cleared. Next device check scheduled for patient, questions answered. Dolly DAVID NOTE TO PROVIDERS: CARD Flowsheets contain detailed device programming and testing data. Paceart/Interrogation PDF can be found under CARDIAC DATA AND REPORT, Scanned Documents section. [facility] 06-08-2024 Telephone encounter Note Called and spoke with patient, reviewed Dr. Yañez message, he voiced understanding and will call us if it gets worse. Chelle Perez RN [facility] 06-08-2024 Miscellaneous Notes Called and spoke with patient, reviewed Dr. Yañez message, he voiced understanding and will call us if it gets worse. Chelle Perez RN Called patient, no answer. Left message for them to return my call to discuss. Chelle Perez RN Call pt and let him know CT shows the large hematoma. Nothing broken. Please call me if he gets worse. Otherwise, will take time to heal. documented in this encounter [facility] 06-06-2024 Telephone encounter Note Called patient, no answer. Left message for them to return my call to discuss. Chelle Perez RN [facility] 06-05-2024 Telephone encounter Note Call pt and let him know CT shows the large hematoma. Nothing broken. Please call me if he gets worse. Otherwise, will take time to heal. [facility] Work Phone: 06-05-2024 History of Presen t illness Narrative Radiology Service Progress Note PATIENT NAME: Alisa Hagan DATE OF SERVICE: June 05, 2024 TIME: 2:07 PM PATIENT IDENTITY VERIFICATION COMPLETED USING TWO (2) IDENTIFIERS: Name and Date of confirmed by patient verbally. FALL SCREENING: Has the patient had 2 falls in the last year or 1 fall with injury or currently using an Ambulatory Assistive Device (Walker, Cane, Wheelchair, Crutches, etc.)? No PATIENT GENDER DATA: Male PATIENT RELEVANT IMPLANT DATA REVIEWED: Yes PATIENT PRESENTS WITH AN IMPLANTABLE OR ATTACHED WIREWORKER SUPERVISOR: No RADIOLOGY DEPARTMENT: CT; Exam(s) Completed: Lower extremity PERIPHERAL IV DATA: Not applicable SIGNED BY: RT Dottie(Portillo) June 05, 2024 2:07 PM documented in this encounter [facility] 06-05-2024 Note HNO ID: [id number] Author: NAVEEN OCHOA RT(Portillo) Service: ? Author Type: Research Editor Type: Progress Notes Filed: 06/05/2024 14:07 Note Text: Radiology Service Progress Note PATIENT NAME: Alisa Hagan DATE OF SERVICE: June 05, 2024 TIME: 2:07 PM PATIENT IDENTITY VERIFICATION COMPLETED USING TWO (2) IDENTIFIERS: Name and Date of confirmed by patient verbally. FALL SCREENING: Has the patient had 2 falls in the last year or 1 fall with injury or currently using an Ambulatory Assistive Device (Walker, Cane, Wheelchair, Crutches, etc.)? No PATIENT GENDER DATA: Male PATIENT RELEVANT IMPLANT DATA REVIEWED: Yes PATIENT PRESENTS WITH AN IMPLANTABLE OR ATTACHED WIREWORKER SUPERVISOR: No RADIOLOGY DEPARTMENT: CT; Exam(s) Completed: Lower extremity PERIPHERAL IV DATA: Not applicable SIGNED BY: RT Dottie(Portillo) June 05, 2024 2:07 PM [facility] 06-04-2024 History of Presen t illness Narrative Alisa Hagan 1950 June 04, 2024 HPI: Alisa Hagan is a 73 year old male who presents as a hospital follow up. Mr. Hagan is a 73 year old male who presented to ER on 06/16/22 for dizziness and difficulty urinating. Of note he was recently admitted with subcapsular hematoma and retroperitoneal bleeding. Had 2 admissions for the same first 1 05/24/2022 to 06/04/2022, total of 11 days, the second 1 was from 06/05/2022 to 06/09/2022 for total duration of 4 days. He has a known history of right renal mass for which she was supposed to undergo robotic right laparoscopic nephrectomy on 06/03/2022. CT abdomen done during the first admission showed large right subcapsular hematoma with area of extravasation from right renal mass with hemorrhage extending inferiorly through the right retroperitoneum. His INR was 1.2 at presentation transferred to MICU for hemorrhagic shock. Had a hemoglobin drop from 13.4-7.6. Underwent IR embolization on 05/25/2022. Aspirin and Coumadin were restarted after consultation with urologist. He also underwent IVC placement on 05/20/2022 by vascular considering his history of multiple unprovoked DVTs and PEs. His first episode was about 25 years back treated with therapeutic anticoagulation and taken off anticoagulation after 6 months. He then had a recurrence in 2009 after being off of coumadin for a month per Dr. Zabala's notes. Urology was on consult during his second admission. His aspirin and warfarin was stopped at the time of second discharge. Per IR notes from 06/16/22: Right common femoral vein was accessed. Initial femoral venography showed occlusive thrombus of the infrarenal IVC and proximal right common femoral vein. Thrombectomy of right common femoral vein and IVC performed without incident. Bilateral pulmonary angiogram performed, showing filling defects in segmental pulmonary arteries bilaterally and central filling defect in the left main pulmonary artery. Left pulmonary artery mechanical thrombectomy performed without incident. Pre-thrombectomy pulmonary artery pressure was measured as a mean of 34mmHg. Post thrombectomy pulmonary artery pressure measured a mean of 33mmHg. On review of chart, pt was seen by [facility] - Dr. Zabala in . Workup at that time was negative for hypercoaguable state EXCEPT for equivocal IgM cardiolipin Abs. 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 He did not have PAI1 testing. Today he is resting in bed. He is currently on hep gtt. He was having his INR checked with PCP. Says that he was doing well on Coumadin and very stable INR. Says the pain in the R flank started in December and was bad enough that it brought him to his knees. Saw outside urology and ultimately says he was not happy with care so he switched. Pt is concerned this morning that urology resident told him he was not going back on blood thinners. In Afib on monitor. No active bleeding. Interval history: Today he is here for follow up. Having pain in the RLE. Rolled a lawnmower over it end of April. Did not have it checked out. Doing well on Eliquis. police magistrate rolled on him while he was sitting on it. Has a very hard lump on the inner side of the RLE just below the knee with erythema on top of it. Bruising noted from the medial knee to the ankle. Some healing with yellow d/c. Painful to walk if using the muscles. Not otherwise any issues. No bleeding in other locations. Was having issues with his INR. Got clots x 3 while trying to regulate it. Got a superficial clot (estephania) LLE; next one was swelling x 2 but never did US to confirm. Has been on Eliquis since October 2023. Retrieval of IVC in 08/09/23. Fatigued. Keeps pushing himself. Not sleeping well. Has to get up to bathroom. Normally 1-2x/night. Sleeps midnight to 3:30-5am. Sees Dr. 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 Horan at [facility] CARDIOVERSION 02/04/2021 Successful conversion from atrial fibrillation to sinus rhythm, by Dr. Horan at [facility] CC PCI CORONARY INTERVENT 2018 CT ANGIOGRAPHY CHEST 11/30/2016 w/contrast ECHO TRANSESOPHAG CONGEN PROBE [facility] I&R 01/02/2021 EF 55%, +LAKSHMI thrombus, +PFO ECHO TRANSESOPHAG CONGEN PROBE [facility] I&R 02/04/2021 EF 50%, mildly dilated RV, moderately dilated LA, no LAKSHMI thrombus, no PFO ECHOCARDIOGRAM 01/04/2006 [facility] EKG 12 LEAD 04/23/2011 [facility] EVENT MONITOR 07/08/2017 24 hour LAPS SURG CHOLECYSTECTOMY W/CHOLANGIOGRAPHY 04/21/2009 PACEMAKER IMPLANT Left 07/22/2020 Dual chamber, [employer], MRI compatible 6 weeks after implantm by Dr. Horan at [facility] PAST SURGICAL HISTORY OF Right kidney removal May 2022 STRESS TEST 03/11/2006 [facility] WENYD (TRANSESOPHAGEAL ECHO) 11/30/2016 Nakul/Payton Hastings,DO TONSILLECTOMY PRIMARY/SECONDARY AGE 14/> Current Outpatient Medications Medication Sig Dispense Refill ELIQUIS 5 mg tab(s) buPROPion XL (WELLBUTRIN XL) 150 mg 24 hr tablet two times a day. metoprolol succinate ER (TOPROL XL) 25 mg 24 hr tablet dilTIAZem CD (CARDIZEM CD, CARTIA XT) 180 mg 24 hr capsule Take 1 capsule by mouth once daily. 30 capsule 11 atorvastatin (LIPITOR) 40 mg tablet Take 40 mg by mouth once daily. sildenafil (REVATIO) 20 mg tablet Take 1 tablet by mouth two times a day. 60 tablet 5 furosemide (LASIX) 40 mg tablet Take 40 mg by mouth once daily. finasteride (PROSCAR) 5 mg tablet Take 5 mg by mouth every evening. aspirin, enteric coated (ECOTRIN LOW STRENGTH) 81 mg EC tablet Take 1 tablet by mouth once daily. cholecalciferol (VITAMIN D3) 50 mcg (2,000 unit) tablet Take 2,000 Units by mouth twice daily. escitalopram 20 mg tablet Take 20 mg by mouth once daily. calcium carbonate (CALTRATE) 600 mg calcium (1,500 mg) tab Take 600 mg by mouth. calcitonin,salmon, (MIACALCIN) 200 unit/actuation nasal spray Inhale as instructed. (Patient not taking: Reported on 12/20/2023) warfarin (COUMADIN) 2 mg tablet Take 2 mg by mouth daily as directed. 2 MG EVERy Tuesday, Tuesday, Tuesday and tuesday (Patient not taking: Reported on 12/20/2023) warfarin (COUMADIN) 5 mg tablet Take 1 tablet by mouth once daily. (Patient not taking: Reported on 12/20/2023) 30 tablet 0 atorvastatin (LIPITOR) 80 mg tablet Take 0.5 tablets by mouth once daily. 90 tablet 3 Current Facility-Administered Medications Medication Dose Route Frequency Provider Last Rate Last Admin perflutren lipid microspheres 1.3 mL in NaCl (PF) 0.9% 10 mL injection (DEFINITY) INTRAVENOUS DIRECTED PRN Niharika Frias MD sodium chloride 0.9 % (flush) 10 mL (BD POSIFLUSH) 10 mL INTRAVENOUS DIRECTED PRN Niharika Frias MD ALLERGIES No Known Allergies FAMILY HISTORY Problem Relation Age of Onset Arthritis Mother Cancer Mother Blood Disease Father clotting factor Diabetes Father Seizures Father Blood Disease Sister clotting factor DVT Sister Blood Disease Brother clotting ffactor DVT Brother Social History Tobacco Use Smoking status: Never Smokeless tobacco: Never Vaping Use Vaping status: Never Used Substance Use Topics Alcohol use: No Drug use: No I have reviewed the PMHx, PSHx, social history and ROS on June 04, 2024 - all new information noted. Review of Systems: Constitutional: No fevers, chills, drenching night sweats or unintentional weight loss. HEENT: No yellowing of the eyes, no vision changes, no hearing loss or ear pain, no nosebleeds or drainage, no sore throat. Neck: No complaints. Chest: No SOB or cough, no ESTRADA, no hemoptysis, no wheezing. Breast: No complaints. Heart: No chest pain, pressure or tightness. No racing heartbeat. Abdominal: No pain or difficulty with swallowing, no N/V, no early satiety, no abdominal pain or bloating, no diarrhea or constipation, no change in bowel habits, no blood in the urine. Genitourinary: No pain or burning with urination, no incontinence, no blood in the urine. Extremities: see HPI Neurological: No headaches, no numbness or tingling in the extremities, no double vision. Skin: No rashes or ulcerations, no change in pigmentation. Nodes: no enlargement per patient. Heme: No easy bruising or bleeding, no yellowing of the eyes or darkening of urine. Psychiatric: no anxiety or depression. Immunologic: No recurrent or persistent infections of the sinuses, lungs or urinary tract. Endocrine: No hair or nail changes, no polyuria, polydipsia, or polyphagia. Appetite normal. I have performed the physical exam on June 04, 2024 - all new findings noted below. Physical Exam: BP 115/76 Pulse 90 Ht 5' 10 (1.78m) Wt 256 lb (116.1kg) SpO2 96% BMI 36.73 kg/(m^2). ECOG PS: 0 Pain Intensity: 0/10 General: Age-appropriate well developed. Appears well. HEENT: Normocephalic, no sclera icterus, external ears normal, oral cavity clear. Neck: Supple, no thyroid nodules, no JVD. Chest: Clear bilaterally, no wheezes, not labored. Heart: Normal S1 and S2, no abnormal sounds, peripheral pulses synchronized. +Afib but rate controlled. Abdomen: Soft, nontender, nondistended, bowel sounds present, no organomegaly or mass, no rigidity. /Rectal: deferred Extremities: No cyanosis, clubbing, gross deformities, or palpable cords. Has a very hard lump on the inner side of the RLE just below the knee with erythema on top of it. Bruising noted from the medial knee to the ankle. Some healing with yellow d/c. Neurological: Cranial nerves II through XII are intact bilaterally, strength normal in the upper and lower extremities, no focal deficits. Skin: Warm and dry with no rashes or ulcerations. Nodes: No palpable adenopathy in the cervical, supraclavicular, infraclavicular, or axillary regions. Hematologic: no bruising or petechiae. Psychiatric: Alert and oriented x3. Emotional well-being assessment was performed. Pt denies depression, distress, and or problems with coping or adjustment. Labs CBC:No results for input(s): WBC, HB, HCT, PLT, MCV, RDWCV, NEUTP, ABSNEUT, LYMPHP, MONOP, EODINP in the last 168 hours. COAG: No results for input(s): APTT, INR in the last 168 hours. BMP: No results for input(s): GLUC, NA, K, CHLOR, CO2, ANION, BUN, CREAT in the last 168 hours. CHEM: No results for input(s): ALB, TPROT, CA, MG in the last 168 hours. Radiology: CT c/a/p 02/22/22: Stable appearance of multiple calcified granulomata throughout both lungs. Stable appearance of the chest compared to prior exam. 1.4 cm right adrenal nodule most consistent with an adrenal adenoma. 3.7 CM RIGHT INTERPOLAR RENAL NEOPLASM. NO LYMPHADENOPATHY OR DEFINITE RENAL VEIN THROMBUS IDENTIFIED ON THIS SINGLE PHASE EXAM. IF NOT ALREADY PERFORMED, UROLOGIC CONSULTATION IS RECOMMENDED. 2 CM RIGHT ADRENAL ADENOMA. CT a/p 05/24/22: Interval development of large right subcapsular hematoma with areas of active extravasation suspected to be from the known right renal mass. Hemorrhage extends inferiorly throughout the right retroperitoneum. Interval placement of inferior vena cava filter. The inferior vena cava is displaced and compressed by right retroperitoneal hemorrhage. VQ 06/07/22: LOW probability VQ scan. If there is a discordant clinical likelihood of thromboembolic disease, additional evaluation with lower extremity venous Dopplers and/or contrast-enhanced PE protocol chest CT may be performed. CT c/a/p 06/16/22: Bilateral pulmonary emboli. There is right-sided heart strain. Stable calcified mediastinal lymph nodes and calcified granulomas. Grossly stable appearance of right upper pole mass. Redemonstration of hemorrhage in the right kidney, right retroperitoneum, and left wrist were obtained. The overall size and configuration is stable from outside study 06/05/2022. No contrast pooling on the delayed images to suggest active contrast extravasation. Diffuse hypoenhancement of the right renal cortex is new from 05/24/2022, which raises the concern of infarct. The right renal artery is grossly patent. Diffuse thrombosis in bilateral lower extremities, iliac veins and IVC, which extends above the IVC filter. IR Procedure 06/17/22: Venography from the right common femoral vein showing thrombus within the proximal right common femoral vein and infrarenal IVC. Technically successful mechanical thrombectomy of right common femoral vein and infrarenal IVC as described above. Angiography of the pulmonary arteries demonstrates chronic appearing filling defect in the posterior basal segment of the right lower lobar pulmonary artery and central filling defect in the left main pulmonary artery extending into the upper and lower lobar branches compatible with pulmonary emboli. Technically successful mechanical thrombectomy of left pulmonary arteries as described above. US BLEs 06/17/22: Positive for extensive occlusive left lower extremity superficial and deep venous thrombosis. No definite evidence of right lower extremity venous thrombosis. CT c/a/p 06/26/22: Trace bilateral pleural effusion along with presumed atelectasis at the posterior portion of each lower lobe. 2. Small atelectasis or pneumonia at the posterior left upper lobe. 3. Evidence of prior granulomatous disease. Status post right nephrectomy. Within the superior renal fossa, there is a somewhat reniform soft tissue mass. This likely represents hematoma although some residual upper pole of the kidney is not excluded. Correlate with surgical findings. 2. Again noted is a large right retroperitoneal hematoma. It is difficult to determine how much of this is old hematoma versus the development of new hematoma. However, portions do appear larger concerning for recurrent bleed. Correlate clinically. 3. There is a small amount of pneumoperitoneum. This may be secondary to the recent surgery. However, bowel perforation is not excludable on this exam. Follow-up as indicated. 4. Secondary findings of left lower extremity DVT again noted. US BLEs 06/29/22: No significant change from the examination performed 06/17/2022. Extensive left lower extremity superficial thrombophlebitis and DVT as noted above. CT a/p 07/01/22: Prior right nephrectomy, stable appearing rounded structure within the superior aspect of the right renal fossa which could represent either residual portion of right kidney or focal hematoma. Right-sided retroperitoneal hematoma extending into and involving the right psoas muscle, slightly more prominent. A small component of high density just anterior to the right common iliac artery may represent area of recent hemorrhage, otherwise, no additional areas of hyperdensity to suggest recent hemorrhage. Resolved pneumoperitoneum, decreased subcutaneous air. US Scrotum 07/02/22: The testicles are heterogeneous in echotexture without focal lesion. Multiple small cysts of the left epididymal head. Echogenic nonvascular focus lateral to the right testicle of unknown etiology. Left-sided varicocele. CT chest/flank 09/29/22: Sequela of prior granulomatous exposure. Status post right nephrectomy. Slight interval decrease in size of a rounded lesion in the superior right nephrectomy bed suggesting slowly resolving hematoma, however continued attention on follow-up imaging is advised. 2. Persistent though significantly decreased in size right retroperitoneal hematoma. 3. No suspect lymphadenopathy. 4. Left renal hypodense lesions are incompletely characterized in the absence of intravenous contrast material though statistically likely cysts. 5. Stable right adrenal adenoma. MRI abd 11/10/22: Enhancing lesion in the renal bed could represent residual renal parenchymal tissue or neoplasm. There is adjacent hematoma. Right adrenal adenoma. Left renal cysts MRI abd 06/14/23: Stable 2.7 cm cystic and solid nodularity in the right surgical bed. Stable fat necrosis in the posterior pararenal 2. No new retroperitoneal lymphadenopathy. 3. A 0.6 cm nodularity in the posterior right paracolic gutter is slightly more conspicuous, possibly due to slice thickness, attention on follow-up is recommended. Pathology: Soft tissue biopsy of the R renal fossa 12/13/22: Soft tissue mass of right renal fossa, core biopsy: - Benign renal tissue with chronic pyelonephritis and globally sclerotic glomeruli. Assessment and Plan: 1) Bilateral PEs without heart strain - noted on CT chest 06/16/22. - due to being off of OAC for R renal hematoma. - currently on hep gtt. - will need to go back on OAC and recommend coumadin when time. - Dr. Ray refilling drugs and checking INR. - now on Eliquis as of 10/2023 due to hard to control INR. 2) LLE DVT - very extensive 3) Presence of IVC filter - s/p thrombectomy of pulmonary and abd vessels in IR on 06/16/22 due to stent occlusion and clots. - removed 07/2023. 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 - recommend pt goes back on coumadin and will need to stay on this lifelong. - reviewed with pt. - he understands that Eliquis is not FDA approved for APLA. 5) R renal mass the hematoma - urology following him. - needs surgery at some point but per notes, recommending surgery in about 3-4 mo to try and save kidney. - this tumor is likely adding to his hypercoaguable state. - Chronic pyelo on exam and biopsy. 6) Afib 7) RLE hematoma and injury - STAT CT RLE I reviewed the above with the patient. Ideally he cannot be without any anticoagulation unless massively bleeding or life threatening. IVC filter will need to remain given it is clogged with clot despite thrombectomy. Will follow. Will add in ELOINA-1 as this was not tested in 2009. if needs ablation or cardioversion, will change to lovenox. Pt to call me if and when that happens. I will see him back in 6 mo for follow up. Will call him about his STAT CT on RLE. Parts of the HPI, ROS, exam and impression/plan may have been copied from my personal previous clinical note and remain pertinent. Current changes have been made and documented today. Other parts or data were deleted if not relevant for today. The documentation has been reviewed and edited as necessary to support the clinical decision making for today's visit. Deena Waggoner MD documented in this encounter [facility] 12-20-2023 History of Presen t illness Narrative Alisa Hagan 1950 December 20, 2023 Cancer Staging No matching staging information was found for the patient. HPI: Alisa Hagan is a 73 year old male who presents as a hospital follow up. Mr. Hagan is a 73 year old male who presented to ER on 06/16/22 for dizziness and difficulty urinating. Of note he was recently admitted with subcapsular hematoma and retroperitoneal bleeding. Had 2 admissions for the same first 1 05/24/2022 to 06/04/2022, total of 11 days, the second 1 was from 06/05/2022 to 06/09/2022 for total duration of 4 days. He has a known history of right renal mass for which she was supposed to undergo robotic right laparoscopic nephrectomy on 06/03/2022. CT abdomen done during the first admission showed large right subcapsular hematoma with area of extravasation from right renal mass with hemorrhage extending inferiorly through the right retroperitoneum. His INR was 1.2 at presentation transferred to MICU for hemorrhagic shock. Had a hemoglobin drop from 13.4-7.6. Underwent IR embolization on 05/25/2022. Aspirin and Coumadin were restarted after consultation with urologist. He also underwent IVC placement on 05/20/2022 by vascular considering his history of multiple unprovoked DVTs and PEs. His first episode was about 25 years back treated with therapeutic anticoagulation and taken off anticoagulation after 6 months. He then had a recurrence in 2009 after being off of coumadin for a month per Dr. Zabala's notes. Urology was on consult during his second admission. His aspirin and warfarin was stopped at the time of second discharge. Per IR notes from 06/16/22: Right common femoral vein was accessed. Initial femoral venography showed occlusive thrombus of the infrarenal IVC and proximal right common femoral vein. Thrombectomy of right common femoral vein and IVC performed without incident. Bilateral pulmonary angiogram performed, showing filling defects in segmental pulmonary arteries bilaterally and central filling defect in the left main pulmonary artery. Left pulmonary artery mechanical thrombectomy performed without incident. Pre-thrombectomy pulmonary artery pressure was measured as a mean of 34mmHg. Post thrombectomy pulmonary artery pressure measured a mean of 33mmHg. On review of chart, pt was seen by Heme - Dr. Zabala in . Workup at that time was negative for hypercoaguable state EXCEPT for equivocal IgM cardiolipin Abs. 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 He did not have PAI1 testing. Today he is resting in bed. He is currently on hep gtt. He was having his INR checked with PCP. Says that he was doing well on Coumadin and very stable INR. Says the pain in the R flank started in December and was bad enough that it brought him to his knees. Saw outside urology and ultimately says he was not happy with care so he switched. Pt is concerned this morning that urology resident told him he was not going back on blood thinners. In Afib on monitor. No active bleeding. Interval history: Today he is here for follow up. Was having issues with his INR. Got clots x 3 while trying to regulate it. Got a superficial clot (estephania) LLE; next one was swelling x 2 but never did US to confirm. Has been on Eliquis since October 2023. About 5 weeks or so. Retrieval of IVC in 08/09/23. Doing well on Eliquis. Getting for about $43/mo. Fatigued. Keeps pushing himself. Not sleeping well. Has to get up to bathroom. Normally 1-2x/night. Sleeps midnight to 3:30-5am. Sees Dr. Ray Missed a week in June post d/c of the Coumadin as pills weren't in box. 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 on chronic Coumadin,managed by pcp Hyperlipidemia 07/08/2017 LBBB (left bundle branch block) 07/08/2017 Orthostasis Other acute embolism veins 11/2008 left leg Other pulmonary embolism and infarction 1998 Other specified disorder of gallbladder Presence of IVC filter Pulmonary HTN (HCC) Recurrent pulmonary emboli (HCC) Renal mass, right S/p nephrectomy S/P Difficult robotic radical nephrectomy on the right Sinus pause SOB (shortness of breath) 07/08/2017 PAST SURGICAL HISTORY Procedure Laterality Date CARDIOVERSION 09/12/2020 Successful conversion from atrial fibrillation to atrial paced rhythm, by Dr. Horan at [facility] CARDIOVERSION 02/04/2021 Successful conversion from atrial fibrillation to sinus rhythm, by Dr. Horan at [facility] CC PCI CORONARY INTERVENT 2019 CT ANGIOGRAPHY CHEST 11/30/2016 w/contrast ECHO TRANSESOPHAG CONGEN PROBE [facility] I&R 01/02/2021 EF 55%, +LAKSHMI thrombus, +PFO ECHO TRANSESOPHAG CONGEN PROBE [facility] I&R 02/04/2021 EF 50%, mildly dilated RV, moderately dilated LA, no LAKSHMI thrombus, no PFO ECHOCARDIOGRAM 01/04/2006 [facility] EKG 12 LEAD 04/23/2011 [facility] EVENT MONITOR 07/08/2017 24 hour LAPS SURG CHOLECYSTECTOMY W/CHOLANGIOGRAPHY 04/21/2009 PACEMAKER IMPLANT Left 07/22/2020 Dual chamber, [employer], MRI compatible 6 weeks after implantm by Dr. Horan at [facility] PAST SURGICAL HISTORY OF Right kidney removal May 2022 STRESS TEST 03/11/2006 [facility] WENDY (TRANSESOPHAGEAL ECHO) 11/30/2016 Nakul/Payton Hastings,DO TONSILLECTOMY PRIMARY/SECONDARY AGE 14/> Current Outpatient Medications Medication Sig Dispense Refill ELIQUIS 5 mg tab(s) buPROPion XL (WELLBUTRIN XL) 150 mg 24 hr tablet metoprolol succinate ER (TOPROL XL) 25 mg 24 hr tablet calcium carbonate (CALTRATE) 600 mg calcium (1,500 mg) tab Take 600 mg by mouth. dilTIAZem CD (CARDIZEM CD, CARTIA XT) 180 mg 24 hr capsule Take 1 capsule by mouth once daily. 30 capsule 11 atorvastatin (LIPITOR) 40 mg tablet Take 40 mg by mouth once daily. sildenafil (REVATIO) 20 mg tablet Take 1 tablet by mouth two times a day. 60 tablet 5 furosemide (LASIX) 40 mg tablet Take 40 mg by mouth once daily. finasteride (PROSCAR) 5 mg tablet Take 5 mg by mouth every evening. atorvastatin (LIPITOR) 80 mg tablet Take 0.5 tablets by mouth once daily. 90 tablet 3 aspirin, enteric coated (ECOTRIN LOW STRENGTH) 81 mg EC tablet Take 1 tablet by mouth once daily. cholecalciferol (VITAMIN D3) 50 mcg (2,000 unit) tablet Take 2,000 Units by mouth twice daily. escitalopram 20 mg tablet Take 20 mg by mouth once daily. calcitonin,salmon, (MIACALCIN) 200 unit/actuation nasal spray Inhale as instructed. (Patient not taking: Reported on 12/20/2023) warfarin (COUMADIN) 2 mg tablet Take 2 mg by mouth daily as directed. 2 MG EVERy Tuesday, Tuesday, Tuesday and tuesday (Patient not taking: Reported on 12/20/2023) warfarin (COUMADIN) 5 mg tablet Take 1 tablet by mouth once daily. (Patient not taking: Reported on 12/20/2023) 30 tablet 0 Current Facility-Administered Medications Medication Dose Route Frequency Provider Last Rate Last Admin perflutren lipid microspheres 1.3 mL in NaCl (PF) 0.9% 10 mL injection (DEFINITY) INTRAVENOUS DIRECTED PRN Niharika Frias MD sodium chloride 0.9 % (flush) 10 mL (BD POSIFLUSH) 10 mL INTRAVENOUS DIRECTED PRN Niharika Frias MD ALLERGIES No Known Allergies FAMILY HISTORY Problem Relation Age of Onset Arthritis Mother Cancer Mother Blood Disease Father clotting factor Diabetes Father Seizures Father Blood Disease Sister clotting factor DVT Sister Blood Disease Brother clotting ffactor DVT Brother Social History Tobacco Use Smoking status: Never Smokeless tobacco: Never Vaping Use Vaping Use: Never used Substance Use Topics Alcohol use: No Drug use: No I have reviewed the PMHx, PSHx, social history and ROS on December 20, 2023 - all new information noted. Review of Systems: Constitutional: No fevers, chills, drenching night sweats or unintentional weight loss. HEENT: No yellowing of the eyes, no vision changes, no hearing loss or ear pain, no nosebleeds or drainage, no sore throat. Neck: No complaints. Chest: No SOB or cough, no ESTRADA, no hemoptysis, no wheezing. Breast: No complaints. Heart: No chest pain, pressure or tightness. No racing heartbeat. Abdominal: No pain or difficulty with swallowing, no N/V, no early satiety, no abdominal pain or bloating, no diarrhea or constipation, no change in bowel habits, no blood in the urine. Genitourinary: No pain or burning with urination, no incontinence, no blood in the urine. Extremities: no pain or swelling. Neurological: No headaches, no numbness or tingling in the extremities, no double vision. Skin: No rashes or ulcerations, no change in pigmentation. Nodes: no enlargement per patient. Heme: No easy bruising or bleeding, no yellowing of the eyes or darkening of urine. Psychiatric: no anxiety or depression. Immunologic: No recurrent or persistent infections of the sinuses, lungs or urinary tract. Endocrine: No hair or nail changes, no polyuria, polydipsia, or polyphagia. Appetite normal. I have performed the physical exam on December 20, 2023 - all new findings noted below. Physical Exam: BP 151/77[rt arm[ Pulse 62 Temp (Src) 96.4 (Temporal) Ht 5' 10 (1.78m) Wt 265 lb (120.2kg) SpO2 95% BMI 38.02 kg/(m^2). ECOG PS: 0 Pain Intensity: 0/10 General: Age-appropriate well developed. Appears well. HEENT: Normocephalic, no sclera icterus, external ears normal, oral cavity clear. Neck: Supple, no thyroid nodules, no JVD. Chest: Clear bilaterally, no wheezes, not labored. Heart: Normal S1 and S2, no abnormal sounds, peripheral pulses synchronized. +Afib but rate controlled. Abdomen: Soft, nontender, nondistended, bowel sounds present, no organomegaly or mass, no rigidity. /Rectal: deferred Extremities: No cyanosis, clubbing, gross deformities, or palpable cords. Neurological: Cranial nerves II through XII are intact bilaterally, strength normal in the upper and lower extremities, no focal deficits. Skin: Warm and dry with no rashes or ulcerations. Nodes: No palpable adenopathy in the cervical, supraclavicular, infraclavicular, or axillary regions. Hematologic: no bruising or petechiae. Psychiatric: Alert and oriented x3. Emotional well-being assessment was performed. Pt denies depression, distress, and or problems with coping or adjustment. Labs CBC:No results for input(s): WBC, HB, HCT, PLT, MCV, RDWCV, NEUTP, ABSNEUT, LYMPHP, MONOP, EODINP in the last 168 hours. COAG: No results for input(s): APTT, INR in the last 168 hours. BMP: No results for input(s): GLUC, NA, K, CHLOR, CO2, ANION, BUN, CREAT in the last 168 hours. CHEM: No results for input(s): ALB, TPROT, CA, MG in the last 168 hours. Radiology: CT c/a/p 02/22/22: Stable appearance of multiple calcified granulomata throughout both lungs. Stable appearance of the chest compared to prior exam. 1.4 cm right adrenal nodule most consistent with an adrenal adenoma. 3.7 CM RIGHT INTERPOLAR RENAL NEOPLASM. NO LYMPHADENOPATHY OR DEFINITE RENAL VEIN THROMBUS IDENTIFIED ON THIS SINGLE PHASE EXAM. IF NOT ALREADY PERFORMED, UROLOGIC CONSULTATION IS RECOMMENDED. 2 CM RIGHT ADRENAL ADENOMA. CT a/p 05/24/22: Interval development of large right subcapsular hematoma with areas of active extravasation suspected to be from the known right renal mass. Hemorrhage extends inferiorly throughout the right retroperitoneum. Interval placement of inferior vena cava filter. The inferior vena cava is displaced and compressed by right retroperitoneal hemorrhage. VQ 06/07/22: LOW probability VQ scan. If there is a discordant clinical likelihood of thromboembolic disease, additional evaluation with lower extremity venous Dopplers and/or contrast-enhanced PE protocol chest CT may be performed. CT c/a/p 06/16/22: Bilateral pulmonary emboli. There is right-sided heart strain. Stable calcified mediastinal lymph nodes and calcified granulomas. Grossly stable appearance of right upper pole mass. Redemonstration of hemorrhage in the right kidney, right retroperitoneum, and left wrist were obtained. The overall size and configuration is stable from outside study 06/05/2022. No contrast pooling on the delayed images to suggest active contrast extravasation. Diffuse hypoenhancement of the right renal cortex is new from 05/24/2022, which raises the concern of infarct. The right renal artery is grossly patent. Diffuse thrombosis in bilateral lower extremities, iliac veins and IVC, which extends above the IVC filter. IR Procedure 06/17/22: Venography from the right common femoral vein showing thrombus within the proximal right common femoral vein and infrarenal IVC. Technically successful mechanical thrombectomy of right common femoral vein and infrarenal IVC as described above. Angiography of the pulmonary arteries demonstrates chronic appearing filling defect in the posterior basal segment of the right lower lobar pulmonary artery and central filling defect in the left main pulmonary artery extending into the upper and lower lobar branches compatible with pulmonary emboli. Technically successful mechanical thrombectomy of left pulmonary arteries as described above. US BLEs 06/17/22: Positive for extensive occlusive left lower extremity superficial and deep venous thrombosis. No definite evidence of right lower extremity venous thrombosis. CT c/a/p 06/26/22: Trace bilateral pleural effusion along with presumed atelectasis at the posterior portion of each lower lobe. 2. Small atelectasis or pneumonia at the posterior left upper lobe. 3. Evidence of prior granulomatous disease. Status post right nephrectomy. Within the superior renal fossa, there is a somewhat reniform soft tissue mass. This likely represents hematoma although some residual upper pole of the kidney is not excluded. Correlate with surgical findings. 2. Again noted is a large right retroperitoneal hematoma. It is difficult to determine how much of this is old hematoma versus the development of new hematoma. However, portions do appear larger concerning for recurrent bleed. Correlate clinically. 3. There is a small amount of pneumoperitoneum. This may be secondary to the recent surgery. However, bowel perforation is not excludable on this exam. Follow-up as indicated. 4. Secondary findings of left lower extremity DVT again noted. US BLEs 06/29/22: No significant change from the examination performed 06/17/2022. Extensive left lower extremity superficial thrombophlebitis and DVT as noted above. CT a/p 07/01/22: Prior right nephrectomy, stable appearing rounded structure within the superior aspect of the right renal fossa which could represent either residual portion of right kidney or focal hematoma. Right-sided retroperitoneal hematoma extending into and involving the right psoas muscle, slightly more prominent. A small component of high density just anterior to the right common iliac artery may represent area of recent hemorrhage, otherwise, no additional areas of hyperdensity to suggest recent hemorrhage. Resolved pneumoperitoneum, decreased subcutaneous air. US Scrotum 07/02/22: The testicles are heterogeneous in echotexture without focal lesion. Multiple small cysts of the left epididymal head. Echogenic nonvascular focus lateral to the right testicle of unknown etiology. Left-sided varicocele. CT chest/flank 09/29/22: Sequela of prior granulomatous exposure. Status post right nephrectomy. Slight interval decrease in size of a rounded lesion in the superior right nephrectomy bed suggesting slowly resolving hematoma, however continued attention on follow-up imaging is advised. 2. Persistent though significantly decreased in size right retroperitoneal hematoma. 3. No suspect lymphadenopathy. 4. Left renal hypodense lesions are incompletely characterized in the absence of intravenous contrast material though statistically likely cysts. 5. Stable right adrenal adenoma. MRI abd 11/10/22: Enhancing lesion in the renal bed could represent residual renal parenchymal tissue or neoplasm. There is adjacent hematoma. Right adrenal adenoma. Left renal cysts MRI abd 06/14/23: Stable 2.7 cm cystic and solid nodularity in the right surgical bed. Stable fat necrosis in the posterior pararenal 2. No new retroperitoneal lymphadenopathy. 3. A 0.6 cm nodularity in the posterior right paracolic gutter is slightly more conspicuous, possibly due to slice thickness, attention on follow-up is recommended. Pathology: Soft tissue biopsy of the R renal fossa 12/13/22: Soft tissue mass of right renal fossa, core biopsy: - Benign renal tissue with chronic pyelonephritis and globally sclerotic glomeruli. Assessment and Plan: 1) Bilateral PEs without heart strain - noted on CT chest 06/16/22. - due to being off of OAC for R renal hematoma. - currently on hep gtt. - will need to go back on OAC and recommend coumadin when time. - Dr. Ray refilling drugs and checking INR. - now on Eliquis as of 10/2023 due to hard to control INR. 2) LLE DVT - very extensive 3) Presence of IVC filter - s/p thrombectomy of pulmonary and abd vessels in IR on 06/16/22 due to stent occlusion and clots. - removed 07/2023. 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 - recommend pt goes back on coumadin and will need to stay on this lifelong. - reviewed with pt. - he understands that Eliquis is not FDA approved for APLA. 5) R renal mass the hematoma - urology following him. - needs surgery at some point but per notes, recommending surgery in about 3-4 mo to try and save kidney. - this tumor is likely adding to his hypercoaguable state. - Chronic pyelo on exam and biopsy. 6) Afib I reviewed the above with the patient. Ideally he cannot be without any anticoagulation unless massively bleeding or life threatening. IVC filter will need to remain given it is clogged with clot despite thrombectomy. Will follow. Will add in ELOINA-1 as this was not tested in 2009. if needs ablation or cardioversion, will change to lovenox. Pt to call me if and when that happens. Will see him in follow up in a few months. Parts of the HPI, ROS, exam and impression/plan may have been copied from my personal previous clinical note and remain pertinent. Current changes have been made and documented today. Other parts or data were deleted if not relevant for today. The documentation has been reviewed and edited as necessary to support the clinical decision making for today's visit. Deena Waggoner MD documented in this encounter [facility] 10-07-2023 Note Exam Date Time Procedure Performing Provider Status 10/07/23 12:49 PM VL Carotid US/Dopple r Complete - CV Auth (Verified) [facility] 12-08-2023 Miscellaneous Notes* Telephone Encounter - Rossy Richardson DO - 08/05/2023 2:55 PM EST Patient Instructions Stop Coumadin 5 days prior to surgery. Start the Lovenox the next day, 4 days prior to surgery. Inject 111mg lovenox every 12 hours. Last injection of Lovenox will be the night before surgery. We will give you further postoperative instructions about when to restart after surgery. [facility] Miscellaneous Notes* Telephone Encounter - Janie Douglas APRN.CNP - 08/05/2023 1:57 PM EST Returned call. Spoke with Pharmacist. No clarification need after all. Janie Douglas APRN.CHERIE * Telephone Encounter - Jenny Allison LPN - 08/05/2023 1:16 PM EST Pharmacist from [facility] in [place] called & left voice message requesting clarificationon a prescription sent for Alisa yesterday. They would like a call back @ [phone]. Jenny Allison LPN [facility] History and physical note * ShouldersKathy APRN.CNP - 08/02/2023 1:00 PM EST HISTORY AND PHYSICAL EXAMINATION SERVICE DATE: 08/02/2023 SERVICE TIME: 1:00 PM PRIMARY CARE PHYSICIAN: Smitha Ray IV, DO Assessment Patient has the following medical conditions which may affect saadia-operative course: Preop testing Assessment : See Note for medical conditions which may affect saadia-operative course was addressed in visit today. Diabetes mellitus (HCC) Assessment: 04/11/2023 A1C 6.5% - Diet controlled History of DVT (deep vein thrombosis) Assessment: Patient has history of multiple DVT - taking coumadin Plan: Patient instructed to notify surgeon and prescriber for preop instructions. Persistent atrial fibrillation (HCC) Assessment: Followed by Cardiology - patient reports he was started on Cardizem 08/02/2023; awaitingmed Recurrent pulmonary emboli (HCC) Assessment: Followed by Hematology - Patient reports history of multiple PE. Last PE in 2021 - 07/04/2023 PT/INR 16.1/1.6 - taking Coumadin Plan: Patient instructed to notify surgeon and prescriber for preop instructions Hyperlipidemia Assessment: Atorvastatin 40 mg daily. CAD (coronary artery disease) Assessment: Followed by Cardiology - h/o cardiac stent -taking aspirin Plan: Patient instructed to notify surgeon and prescriber for preop instructions. HTN (hypertension) Assessment: Followed by Cardiology Presence of cardiac pacemaker Assessment: PACER recommendations in epic 08/01/2023 Stage 3 chronic kidney disease (HCC) Assessment: 07/04/2023 BUN/Cr 36/1.86 Pulmonary HTN ([facility]) 07/05/2023 Echo Impression CONCLUSIONS: - Technically difficult exam due to body habitus. - Exam indication: Re-evaluation of known pulmonary hypertension (to guide therapy) - The left ventricle is normal in size. There is mild upper septal asymmetric left ventricular hypertrophy. Left ventricular systolic function is mildly decreased. EF = 43 5% (2D biplane) Left ventricular diastolic function was not evaluated due to AF. Septal hypokinesis on limited views - The right ventricle is normal in size. Right ventricular systolic function is low normal. pacer seen on right side; RV normal in size; No pulm HTN on limited doppler - The left atrial cavity is moderately dilated. - Mild MR. - Estimated right ventricular systolic pressure is 30 mmHg consistent with normal pulmonary artery pressures. Estimated right atrial pressure is 15 mmHg based on IVC assessment. Tech limited study due to body habitus - Exam was compared with the prior CC WENDY performed on 09/07/2022. There is no significant change in LVEF; PA pressures not estimated on prior study Hypercoagulable state (HCC) Followed by Hematology - [facility] 06/23/2023 - Per hematology [facility] note : On review of chart, pt was seen by [facility] - Dr. Zabala in . Workup at that time was negative for hypercoaguable state EXCEPT for equivocal IgM cardiolipin Abs. 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 He did not have PAI1 testing. Per Hematology epic note Plan: ? 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 - recommend pt goes back on coumadin and will need to stay on this lifelong. - reviewed with pt. Lynch Activity Status Index: METS: Climb a flight of stairs or walk up a hill (5.50 METs) DASI Score: 5.5 Patient denies any chest pain or undue shortness of breath with the above physical activity. Clinical Frailty Scale: 3. Well, with treated comorbid disease ARISCAT Score: Age: 51-80 Preoperative SpO2: >=96% Respiratory infection in the last month: No Preoperative anemia: No Surgical incision: peripheral Duration of surgery: 2-3 hrs Emergency procedure: No ARISCAT Score: 19 ANESTHESIA FINDINGS: Intubation History: No history of difficult intubation Significant Anesthesia Considerations: none Airway History: No history of difficult airway I - PHYSICAL EVALUATION AIRWAY Patient intubated: No. DENTAL Dental findings: teeth intact. II - ANESTHESIA PLAN Anesthetic Plan: general Beta Lilly Monitoring Plan Post Procedure Analgesic Plan REASON FOR VISIT: Alisa Hagan is a 73 year old male who is scheduled for Procedure(s): TRANSCATHETER RETRIEVAL PERCUTANEOUS OF INTRAVASCULAR FOREIGN BODY W/ RADIOLOGICAL SUPERVISION/INTERPRETATION AND IMAGING GUIDANCE (N/A) at the request of Dr. Rossy Richardson for routine H&P. My final recommendation will be communicated back to the requesting physician by way of shared medical record or letter. Subjective The patient has the following: ACTIVE PROBLEM LIST Other and Unspecified Coagulation Defects Other Pulmonary Embolism and Infarction Embolism and Thrombosis of Unspecified Site Persistent Atrial Fibrillation (Hcc) Chest Pain Htn (Hypertension) Hyperlipidemia Lbbb (Left Bundle Branch Block) Sob (Shortness of Breath) Recurrent Pulmonary Emboli (Hcc) History of Dvt (Deep Vein Thrombosis) Non-Smoker Class 2 Severe Obesity Due to Excess Calories With Serious Comorbidity and Body Mass Index (Bmi) of38.0 to 38.9 in Adult Weight Gain Decreased Exercise Tolerance Pulmonary Htn (Hcc) Cteph (Chronic Thromboembolic Pulmonary Hypertension) (Hcc) S/P Coronary Artery Stent Placement Current Use of Detention Anticoagulation Cad (Coronary Artery Disease) Dizziness At Risk for Stroke Status Post Placement of Cardiac Pacemaker Bradycardia Thrombus of Left Atrial Appendage Preop Cardiovascular Exam Hematoma Right Kidney Mass Kidney Hematoma Acute Blood Loss Anemia Hemorrhagic Shock (Hcc) Flank Pain Leukocytosis Pulmonary Embolism, Bilateral (Hcc) Depressive Disorder Diabetes Mellitus (Hcc) Obesity, Class III, BMI >= 40 Preop Testing Antiphospholipid Antibody Syndrome (Hcc) Atherosclerosis of Aorta (Hcc) Presence of Cardiac Pacemaker Hypercoagulable State (Hcc) Stage 3 Chronic Kidney Disease (Hcc) COVID-19 Immunization Status Overdue - Covid-19 Vaccine () Overdue since 04/29/2023 08/18/2021 Imm Admin: COVID-19 original vaccine, full dose, monovalent (MODERNA) 11/06/2020 Imm Admin: COVID-19 vaccine (MIKE) CHIEF COMPLAINT: IVC filter HPI: Patient has history of recurrent DVT/PE and hypercoagulable state. He IVC filter placed in April 2022. He is followed by vascular, cardiology and hematology. Today, he denies pain, rating 0 out of 10 on the numeric pain scale. He denies chest pain, shortness of breath, palpitations at thistime. After discussion with surgeon patient agreeable to surgical intervention. REVIEW OF SYSTEMS: General: No weight loss, malaise or fevers. Neurological: Negative for: headaches, seizures and strokes. Respiratory: Negative for: asthma, COPD, current cough, pneumonia within 6 weeks and obstructive sleep apnea. Cardiovascular: Positive for: AICD/PPM, atrial fibrillation, CAD, DVT/PE (History of), hyperlipidemia and hypertension Negative for: chest pain, CHF and murmur/valvular heart disease. GI: No history of GI symptoms or problems. No history of esophageal varices, recent ascites, or ETOH greater than 2 drinks per day. : +H/O renal cancer Positive for: renal failure. Patient's renal failure is chronic. Negative for: dysuria, frequent urination and urgency. Endocrine: Positive for: diabetes mellitus. Negative for: hypothyroidism. Hematology: Positive for: chronic anti-coagulation/platelet meds. Patient is on anti- coagulation/platelet medication(s): Coumadin and Aspirin. Negative for: anemia and factor V Leiden. Oncology: No history of CA metastasis, chemo within 30 days, or radiotherapy within 90 days. No history of oncological symptoms or problems. Psych: No history of psychiatric symptoms or problems. Musculoskeletal: Negative for joint pain or swelling, back pain or muscle pain. Skin: Negative for lesions, rash and itching. 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 Horan at [facility] CARDIOVERSION 02/04/2021 Successful conversion from atrial fibrillation to sinus rhythm, by Dr. Horan at [facility] CC PCI CORONARY INTERVENT 2018 CT ANGIOGRAPHY CHEST 11/30/2016 w/contrast ECHO TRANSESOPHAG CONGEN PROBE [facility] I&R 01/02/2021 EF 55%, +LAKSHMI thrombus, +PFO ECHO TRANSESOPHAG CONGEN PROBE [facility] I&R 02/04/2021 EF 50%, mildly dilated RV, moderately dilated LA, no LAKSHMI thrombus, no PFO ECHOCARDIOGRAM 01/04/2006 [facility] EKG 12 LEAD 04/23/2011 [facility] EVENT MONITOR 07/08/2017 24 hour LAPS SURG CHOLECYSTECTOMY W/CHOLANGIOGRAPHY 04/21/2009 PACEMAKER IMPLANT Left 07/22/2020 Dual chamber, [employer], MRI compatible 6 weeks after implantm by Dr. Horan at [facility] PAST SURGICAL HISTORY OF Right kidney removal May 2022 STRESS TEST 03/11/2006 [facility] WENDY (TRANSESOPHAGEAL ECHO) 11/30/2016 [facility] DO TONSILLECTOMY PRIMARY/SECONDARY AGE 12/> FAMILY HISTORY Problem Relation Age of Onset Arthritis Mother Cancer Mother Blood Disease Father clotting factor Diabetes Father Seizures Father Blood Disease Sister clotting factor DVT Sister Blood Disease Brother clotting ffactor DVT Brother Social History Tobacco Use Smoking status: Never Smokeless tobacco: Never Vaping Use Vaping Use: Never used Substance Use Topics Alcohol use: No Drug use: No Prior to Admission medications as of 08/02/23 1311 Medication Sig Last Dose Taking calcium carbonate (CALTRATE) 600 mg calcium (1,500 mg) tab Take 600 mg by mouth. Taking Yes calcitonin,salmon, (MIACALCIN) 200 unit/actuation nasal spray Inhale as instructed. Taking Yes atorvastatin (LIPITOR) 40 mg tablet Take 40 mg by mouth once daily. Taking Yes warfarin (COUMADIN) 2 mg tablet Take 2 mg by mouth daily as directed. 2 MG EVERy Tuesday, Tuesday, Tuesday and tuesday Taking Yes sildenafil (REVATIO) 20 mg tablet Take 1 tablet by mouth two times a day. Taking Yes furosemide (LASIX) 40 mg tablet Take 40 mg by mouth once daily. Taking Yes warfarin (COUMADIN) 5 mg tablet Take 1 tablet by mouth once daily. Patient taking differently: Take by mouth once daily. 2.5 every Tuesday and Taking Yes finasteride (PROSCAR) 5 mg tablet Take 5 mg by mouth every evening. Taking Yes aspirin, enteric coated (ECOTRIN LOW STRENGTH) 81 mg EC tablet Take 1 tablet by mouth once daily. Taking Yes cholecalciferol (VITAMIN D3) 50 mcg (2,000 unit) tablet Take 2,000 Units by mouth twice daily. Taking Yes escitalopram 20 mg tablet Take 20 mg by mouth once daily. Taking Yes dilTIAZem CD (CARDIZEM CD, CARTIA XT) 180 mg 24 hr capsule Take 1 capsule by mouth once daily. atorvastatin (LIPITOR) 80 mg tablet Take 0.5 tablets by mouth once daily. Patient not taking: Reported on 06/23/2023 Medication Comments documented by Anthony Jolly, [facility] on 06/25/2022 at 1009. June 25, 2022 Anthony Jolly (Pharmacist) -Pt generally remembers his med, however there are some medications he wasn't sure -He is also taking medications differently as Rx -Noted Rx for nebivol- pt is Not taking this -Has enoxaparin and warfarin - but has not taken for weeks ALLERGIES No Known Allergies Objective PHYSICAL EXAM: General: alert and oriented and obese. Pertinent negatives noted - not distressed. Skin: normal color, no rash or lesions. HEENT: EOM intact. Cardiovascular: Pulse characterized as irregular.Pertinent negatives noted - no murmur, no rub and no gallop. +HR 73. Respiratory: normal breath sounds, no wheezes or crackles. No chest wall deformity or tenderness. Abdomen: bowel sounds present. Extremities: no deformity, no edema or tenderness, no joint swelling or clubbing. Neurological: normal cognition and motor skills. Gait normal. No weakness or sensory deficit. PAIN ASSESSMENT: Pain Pain Level: 0 VITALS: BP 128/77 Pulse 73 Temp 97 Resp 16 Ht 5' 10 (1.78m) Wt 258 lb (117.0kg) SpO2 98% BMI37.02 kg/(m^2). Diagnostic tests reviewed for today's visit: Lab Value Units Date High Low HB 16.5 g/dL 07/04/2023 17.0 13.0 HCT 49.4 % 07/04/2023 51.0 39.0 WBC 7.47 k/uL 07/04/2023 11.00 3.70 PLT 176 k/uL 07/04/2023 400 150 NA 138 mmol/L 07/04/2023 144 136 K 4.7 mmol/L 07/04/2023 5.1 3.7 GLUC 132 mg/dL 07/04/2023 99 74 BUN 36 mg/dL 07/04/2023 24 9 CREAT 1.86 mg/dL 07/04/2023 1.22 0.73 PTSEC 16.1 sec 07/04/2023 <13.1 INR 1.6 no uni* 07/04/2023 1.3 0.9 APTT No results within date range. ALT 27 U/L 04/11/2023 54 10 AST 20 U/L 04/11/2023 40 14 TBILI 2.6 mg/dL 04/11/2023 1.3 0.2 TSH No results within date range. Lab Value Units Date High Low HCGQT No results within date range. UHCG No results within date range. HCG, BODY* No results within date range. Lab Value Units Date High Low ABORHD No results within date range. ABSCREEN No results within date range. Hemoglobin A1C (%) Date Value 04/11/2023 6.5 07/01/2022 5.2 No results found for this or any previous visit (from the past 8760 hour(s)). Recent Results (from the past 42928 hour(s)) ECHO Collection Time: 07/05/23 7:12 AM Impression CONCLUSIONS: - Technically difficult exam due to body habitus. - Exam indication: Re-evaluation of known pulmonary hypertension (to guide therapy) - The left ventricle is normal in size. There is mild upper septal asymmetric left ventricular hypertrophy. Left ventricular systolic function is mildly decreased. EF = 43 5% (2D biplane) Left ventricular diastolic function was not evaluated due to AF. Septal hypokinesis on limited views - The right ventricle is normal in size. Right ventricular systolic function is low normal. pacer seen on right side; RV normal in size; No pulm HTN on limited doppler - The left atrial cavity is moderately dilated. - Mild MR. - Estimated right ventricular systolic pressure is 30 mmHg consistent with normal pulmonary artery pressures. Estimated right atrial pressure is 15 mmHg based on IVC assessment. Tech limited study due to body habitus - Exam was compared with the prior CC WENDY performed on 09/07/2022. There is no significant change in LVEF; PA pressures not estimated on prior study * * * Final * * * Prepared for Surgery: CONSULTS: The following consults have been initiated at this time: cardiology (Hematology cl in [place] 07/05/2023). Planned Anesthetic: general The Following Tests/Procedures Have Been Initiated: No orders of the defined types were placed in this encounter. Implantable Devices: Cardiac stent, PACER, IVC filter Assessment/Plan Presence of IVC filter [Z95.828] PLAN Planned Procedure: Procedure(s): TRANSCATHETER RETRIEVAL PERCUTANEOUS OF INTRAVASCULAR FOREIGN BODY W/ RADIOLOGICAL SUPERVISION/INTERPRETATION AND IMAGING GUIDANCE (N/A) The Following Tests/Procedures Have Been Initiated: ECG ordered in [place] [facility] by surgeon . ECG completed 08/02/2023 via Cardiac and results in [place] [place] Instructions Given to Patient: Instructions located in the after visit summary. Patient given verbal and written preop instructions and voices comprehension and compliance. I spent a total of 40 minutes on the date of the service which included preparing to see the patient, [id number] patient care, completing clinical documentation, obtaining and/or reviewing separately obtained history, performing a medically appropriate examination, and counseling and educating the patient/family/caregiver. SIGNATURE: Kathy Mckeon APRN.CNP PATIENT NAME: Alisa Hagan DATE: August 02, 2023 TIME: 8:34 AM PAGER/CONTACT #: documented in this encounterProvidence Hospital12-05-2023 Instructions* Patient Instructions* Kathy Mckeon APRN.CNP - 08/02/2023 8:34 AM EST PATIENT PREOPERATIVE INSTRUCTIONS Your surgeon has scheduled you for your procedure at this surgery center: [facility] [phone] [address] [phone] Please enter through the main entrance, and proceed to the blue elevators. The surgery center is located left of the blue elevators. Please read below carefully for your personalized instructions. Arrival Time for Surgery: DATE: 08/09/2023 Your surgeon's office will provide you with your ARRIVAL TIME for surgery. -If you have not received an arrival time by the afternoon before your surgery date, please follow up with your surgeon's office. - If you are scheduled for Tuesday surgery, please make sure you have your arrival time by Tuesday afternoon. -Please be aware that emergency situations arise, which may delay or change your surgical time. If this happens, your surgeon's office will notify you as soon as possible and regret any inconvenience. Dietary Restrictions: -Nothing to eat or drink after midnight except for a sip of water with approved medications. -This is important because if you do, your surgery may have to be cancelled Blood Thinning Medications: - Stop NSAIDS (Ibuprofen, Advil, Aleve, Motrin, Celebrex, Mobic, Voltaren, Diclofenac, etc.) 7 daysbefore surgery, as directed by your surgeon. -You may take Tylenol or pain medications that do not contain Aspirin or NSAIDs. - Stop Vitamin E, fish oil, multivitamins, Marijuana, CBD oil and other over the counter herbals and dietary supplements 7 days before surgery. ?-This would not apply to cancer patients who are prescribed Marinol or any other prescription formon marijuana or CBD. -IF YOU TAKE ANY OF THE FOLLOWING BLOOD THINNERS, PLEASE CONTACT YOUR SURGEON AND THE PHYSICIAN WHOPRESCRIBES IT FOR YOU IN ORDER TO GET PERIOPERATIVE INSTRUCTIONS SOON POSSIBLE. BLOOD THINNERS: Aspirin , Coumadin, Plavix, Eliquis, Pradaxa, Xarelto, Lovenox, Brilinta, Effient, Savaysa, Arixtra, etc Medications: Approved medications to take the morning of surgery with a sip of water: BP, Heart, thyroid, psych,seizure, and pain medications excluding NSAIDS. Use inhalers as prescribed. Please bring inhalers. Medications to be taken with small amount of fluid on the morning of surgery: If these are morning medications, go ahead and take: Approved medications to take the morning of surgery with a sip of water: BP, Heart, thyroid, psych, seizure, and pain medications excluding NSAIDS. Use inhalers as prescribed. Please bring inhalers. - If you take Phentermine anesthesia recommends you hold Phentermine 4 days before surgery. Preoperative Instructions for Patients with Diabetes Mellitus: Please follow up with the provider that manages your diabetes and how to prepare you for surgery. - Do not take the morning of surgery; Trajenta, Metformin, Actos/Pioglitazone and Amaryl/Glimepiride. - For the following Medications, please HOLD 2 DAYS PRIOR TO SURGERY: Glucotrol/Glipizide, Januvia/Sitagliptin, Glyburide, Prandin/Repaglinide, Starlix/Nateglinide, Symlin/Pramlintide, - For the following Medications, please HOLD 3 DAYS PRIOR TO SURGERY: Canagliflozin/Invokana, Dapagliflozin/Farxiga ,Empagliflozin/Jardiance, Invokamet/canagliflozin and metformin, Xigduo XR/ dapagliglozin and metformin, Glyxambi/ empagliflozin and metformin, Syndardy/ empagliflozin and metformin - For the following Medications, please HOLD 4 DAYS PRIOR TO SURGERY: Ertugliflozin/Steglatro - For the following Medications, please HOLD 7 DAYS PRIOR TO SURGERY: GLP-1 AGONIST: Adlyxin (lixisenatide), Bydureon BCise (exenatide suspension), Byetta (exenatide), Mounjaro (tirzepatide), Ozempic(semaglutide injection), Rybelsus (semaglutide tablets), Tanzeum (albiglutide), Trulicity (dulaglutide), Victoza (liraglutide), Wegovy (semaglutide), Saxenda (liraglutide) Insulin Medication Instructions: Please follow up with the provider that manages your Insulin and how to prepare you for surgery. If you start any new medications after today's visit, please contact the surgeon's office. Erectile Dysfunction If you take any medications for erectile dysfunction, please do not take these 48 hours prior to surgery. Important Reminders: - You need a responsible person to stay and wait for you at the hospital or surgery center during your procedure. - If you are undergoing an outpatient procedure you must have someone drive you home and stay with you for 24 hours. Your surgery may be cancelled if you do not have someone to drive you home or takecare of you for 24 hours. - If you use CPAP/BIPAP, bring the machine with you to the surgery center. - If you are prescribed inhalers for breathing, continue using them AND bring them to the surgery center. - Candy, mints, gum and tobacco products are NOT permitted the morning of surgery. - Hearing aids, dentures and glasses may be worn the morning of surgery. - NO jewelry, body piercings, makeup, hairpins or contacts are to be worn the day of surgery. -Oral hygiene and a shower or bath is required the evening before or the morning of surgery. - NO lotion, creams, powders or deodorants on the skin the day of surgery -Wear loose, comfortable clothing that will accommodate bandages. -Your length of stay will be determined by your surgeon - You will need to have someone else (Family or friend) drive you home once discharged from the hospital. You are not allowed to drive yourself home after surgery. - YOU MUST HAVE A RESPONSIBLE MACHINE SETTER AND REPAIRER TAKE YOU HOME. A CONTENT ASSISTANT, CAB OR UBER MACHINE SETTER AND REPAIRER CANNOT BE MADEA RESPONSIBLE MACHINE SETTER AND REPAIRER. - We recommend that a responsible person stays with you overnight to take care of you. - You cannot stay in a hotel alone after outpatient surgery. You will not be permitted to have yoursurgery, if you do not have someone to take care of you. - If you have a stimulator, implant or pump that requires a remote please bring the remote with youday of surgery. If you develop symptoms such as a fever, cold, or flu, or have other changes to your health within TWO DAYS of scheduled surgery or the morning of surgery, please contact the surgery center above. Visitors to any [facility] facility: - An individual who is sick should not visit. - Visitors to patients with COVID-19 must follow these guidelines, which include wearing a mask, eye protection, gown and gloves. [facility]- Visitations are: - Visitation hours are from 7 a.m. to 9 p.m. - Pre- Surgery-Patients may have up to two visitors at a time. - PACU-Patients may have up to 1-2 visitors at a time. Personal Belongings: - Leave ALL valuables and money at home or with family members. - You will need a form of ID and insurance card to check in the morning of surgery. - You will have to wear a hospital gown during your stay but if you wish to bring undergarments forafter surgery you may. -If you do not have a copy of advance directives on file with us, please bring a copy with you on the day of surgery. If you already have an Advance Directive, please fax a copy to [phone] or email to for it to be added to your chart. If you do not have an Advance Directive, you can find the appropriate form and more information at [email or web address]. We recommend that youcomplete the Advance Directive form found on the website and bring it with you the day of your surgery. It can be witnessed and scanned into your chart that day. Kathy Mckeon APRN.CNP 08/02/23 documented in this encounterProvidence Hospital12-04-2023 History of Present illness Narrative* Mirian Horan MD - 08/01/2023 9:31 AM EST Images from the original note were not included. Heart and Vascular [facility] SECTION OF CARDIAC PACING and ELECTROPHYSIOLOGY OUTPATIENT VISIT DATE August 01, 2023 OUTPATIENT VISIT TYPE ESTABLISHED PRIMARY CARE PHYSICIAN: Smitha Ray IV [address] [place] [address] HISTORY OF PRESENT ILLNESS: Prior history, edited as needed: 72-year-old male referred by Dr. Jain for bradycardia. Mr. Hagan has a history of coronary disease, had PCI/stent in 2019, pulmonary hypertension, at least a five-year history of persistent atrialfibrillation managed with rate control and anticoagulation. He never had a cardioversion. In addition he has history of obesity with BMI of 38, as well as left bundle-branch block. He also suffered pulmonary embolism at least 5 times, and is now on chronic anticoagulation. In fact several years agohe received an IVC filter that was subsequently removed. A recent event monitor demonstrated pausesprompting this referral. Mr. Hagan reports fatigue and exertional dyspnea. He denies chest pain, palpitation, or syncope. On occasion he does feel dizzy. He is also under significant stress due to his 's illness (recently diagnosed malignancy). Interval history: Mr. Hagan presents for follow-up. He continues experiencing fatigue and low energy, exertional dyspnea, and episodes of dizziness. He wore a 30 day event monitor demonstrating ongoing atrial fibrillation with most controlled ventricular rate, but pauses up to 3.8 seconds. He has left bundle-branch block, and his LVEF has been preserved. Interval history: Mr. Hagan presents for follow-up. After some initial hesitation he received a dual-chamber pacemaker and underwent DC cardioversion a few weeks later. Now he presents for follow-up. He reports feeling reasonably well. He denies palpitation, dizziness, and reports some improvement in his dyspnea and fatigue. He remains on oral anticoagulation with warfarin. He does report occasional epistaxis.ECG today shows sinus rhythm with left bundle branch block that was noted before. Interval history: In spring 2021 Mr. Hagan developed sustained atrial fibrillation, was supposed to undergo repeat cardioversion, had WENDY in December 2021 that demonstrated left atrial appendage thrombus. WENDY a month later showed thrombus resolution and sinus rhythm was restored. About a month later atrial fibrillationrecurred. Shortly thereafter he developed renal cell malignancy, underwent nephrectomy, had bilateral pulmonary emboli, had IVC filter placed. He is suspected to have hypercoagulable state. Today he presents for follow-up. He is recovering after prolonged hospitalization, still short of breath and tired. He is ECG shows atrial fibrillation with ventricular rate of 95 bpm. The most recent pacemaker interrogation demonstrated atrial fibrillation for at least 6 months. He is on Coumadin now. In August 2022 he underwent WENDY guided DC cardioversion with atrial fibrillation recurrence less than a day later. Interval history: Mr. Hagan presents for an office visit. He reports ongoing fatigue, denies palpitation, chest comfort, dizziness. Remains on warfarin with no obvious bleeding complications. He is a scheduled for IVC filter removal in a few weeks. His ECG shows atrial fibrillation with ventricular rate of 80 bpm and LBBB. Pacemaker interrogations continue to show atrial fibrillation with most controlled ventricular rates, stable lead parameters, battery longevity of 9 years. He recently switched his metoprolol from morning dosing to the evening in hopes to decrease fatigue, but did not notice much difference. He is inquiring without medications can be used instead of metoprolol. He is also inquiring about catheter ablation for atrial fibrillation. DLCO on PFT in 2018 was mildly reduced. Echo in July 21 showed EF of 43% which is his baseline, mild LVH with IVS of 1.3, moderate leftatrial enlargement. 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 on chronic Coumadin,managed by pcp Hyperlipidemia 07/08/2017 LBBB (left bundle branch block) 07/08/2017 Orthostasis Other acute embolism veins 11/2008 left leg Other pulmonary embolism and infarction 1998 Other specified disorder of gallbladder Presence of IVC filter Pulmonary HTN (HCC) Recurrent pulmonary emboli (HCC) Renal mass, right S/p nephrectomy S/P Difficult robotic radical nephrectomy on the right Sinus pause SOB (shortness of breath) 07/08/2017 MEDICATIONS: calcium carbonate (CALTRATE) 600 mg calcium (1,500 mg) tab^Take 600 mg by mouth.^Disp: ^Rfl: calcitonin,salmon, (MIACALCIN) 200 unit/actuation nasal spray^Inhale as instructed.^Disp: ^Rfl: dilTIAZem CD (CARDIZEM CD, CARTIA XT) 180 mg 24 hr capsule^Take 1 capsule by mouth once daily.^Disp: 30 capsule^Rfl: 11 atorvastatin (LIPITOR) 40 mg tablet^Take 40 mg by mouth once daily.^Disp: ^Rfl: warfarin (COUMADIN) 2 mg tablet^Take 2 mg by mouth daily as directed. 2 MG EVERy Tuesday, Tuesday, Tuesday and tuesday^Disp: ^Rfl: sildenafil (REVATIO) 20 mg tablet^Take 1 tablet by mouth two times a day.^Disp: 60 tablet^Rfl: 5 furosemide (LASIX) 40 mg tablet^Take 40 mg by mouth once daily.^Disp: ^Rfl: warfarin (COUMADIN) 5 mg tablet^Take 1 tablet by mouth once daily.^Disp: 30 tablet^Rfl: 0 (Patient taking differently: Take by mouth once daily. 2.5 every Tuesday and ) finasteride (PROSCAR) 5 mg tablet^Take 5 mg by mouth every evening.^Disp: ^Rfl: atorvastatin (LIPITOR) 80 mg tablet^Take 0.5 tablets by mouth once daily.^Disp: 90 tablet^Rfl: 3 (Patient not taking: Reported on 06/23/2023) aspirin, enteric coated (ECOTRIN LOW STRENGTH) 81 mg EC tablet^Take 1 tablet by mouth once daily.^Disp: ^Rfl: cholecalciferol (VITAMIN D3) 50 mcg (2,000 unit) tablet^Take 2,000 Units by mouth twice daily. ^Disp: ^Rfl: escitalopram 20 mg tablet^Take 20 mg by mouth once daily.^Disp: ^Rfl: Review of Systems Constitutional: Positive for fatigue. HENT: Negative for hearing loss. Respiratory: Positive for shortness of breath. Cardiovascular: Negative for chest pain and palpitations. Gastrointestinal: Negative for abdominal pain. Endocrine: Negative for cold intolerance. Genitourinary: Negative for hematuria. Skin: Negative for pallor. Neurological: Negative for syncope. Psychiatric/Behavioral: The patient is not nervous/anxious. PHYSICAL EXAMINATION: BP 112/76 (BP Site: Left Arm, BP Position: Sitting, BP Cuff Size: Large Adult) Pulse 82 Resp 18 Ht 5' 10 (1.778 m) Wt 255 lb (115.7 kg) SpO2 96% BMI 36.59 kg/m BP w/Orthostatic Vitals Date and Time Orthostatic BP Orthostatic Pulse BP Pulse BP Position BP Site BP Cuff Size 08/01/23 0853 -- -- 112/76 82 Sitting Left Arm Large Adult Peak Flow Date and Time PF Resp 08/01/23 0853 -- 18 Physical Exam Constitutional: Appearance: Normal appearance. HENT: Head: Normocephalic and atraumatic. Eyes: Conjunctiva/sclera: Conjunctivae normal. Cardiovascular: Rate and Rhythm: Normal rate. Rhythm irregular. Pulmonary: Effort: Pulmonary effort is normal. No respiratory distress. Breath sounds: No stridor. Skin: General: Skin is dry. Coloration: Skin is not pale. Neurological: Mental Status: He is alert and oriented to person, place, and time. Psychiatric: Mood and Affect: Mood normal. I have personally reviewed the Electrocardiogram. Assessment ASSESSMENT/PLAN: 1. Persistent atrial fibrillation (HCC) - ICD9: 427.31, ICD10: I48.19 (primary diagnosis) Longstanding persistent, may be contributing to fatigue and exertional dyspnea, although the symptoms may be related to many other causes. Cardioversion earlier this year achieve sinus rhythm for less than a day. Mr. Haagn is inquiring about catheter ablation. I believe it would be important to clarify whether his fatigue is related to atrial fibrillation. Will arrange for PFTs and, if DLCO is not significantly reduced, start amiodarone load followed by cardioversion. If his symptoms improvedsignificantly, we may consider catheter ablation at that point, otherwise rate control would be theapproach of choice. - ECG B/O W INTERP (MED OFFICE) - SPIROMETRY BASELINE ONLY - LUNG DIFFUSION CAPACITY (DLCO) - LUNG VOLUMES 2. Sinus node dysfunction (HCC) - ICD9: 427.81, ICD10: I49.5 Addressed the dual-chamber pacemaker implantation 3. Pacemaker - ICD9: V45.01, ICD10: Z95.0 Normal function, continue quarterly device interrogations and annual office visits 4. LBBB (left bundle branch block) - ICD9: 426.3, ICD10: I44.7 Stable 5. 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 Mirian Horan MD documented in this encounterProvidence Hospital12-04-2023 Nurse Note* Fang Shell MA - 08/01/2023 8:52 AM EST Patient denies any cardiac issues or symptoms. documented in this encounterProvidence Hospital11-09-2023 Miscellaneous Notes* Telephone Encounter - Liat Cruz RN - 07/07/2023 11:37 AM EST Pt called back, notified him of results. Liat Cruz RN * Telephone Encounter - Liat Cruz RN - 07/07/2023 10:09 AM EST Images from the original note were not included. Niharika Frias MD [facility] Nurse Pool Please call patient and let him know that his echo is largely unchanged compared to earlier in the year. He still has reduced function on the Left side and presence of A.Fib Let patient know I shared results with his cardiology team and nothing to do from my end. Attempted to notify of results, no answer. Left message to call office back. Liat Cruz RN documented in this encounterProvidence Hospital11-09-2023 Miscellaneous Notes* Telephone Encounter - Dali Dillon APRN.CNP - 07/07/2023 7:38 AM EST Patient needs overdue general cardiology appointment with Dr. 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 HR ranging 60-90 bpm. Patient has appointment on 08/01/2023. Elvira Callejas LPN documented in this encounterProvidence Hospital11-03-2023 Miscellaneous Notes* Telephone Encounter - Ashley Callejas - 07/01/2023 2:47 PM EDT Received medication clearance from [facility] for IVC filter removal on 08/09/23. Per JOANN Shipman, we do not prescribe this pt's coumadin. Pt's recruiting coordinator does. Form faxed back asking [facility] to forward to pt's hematologists. Clearance scanned in. Ashley Callejas July 01, 2023 2:49 PM documented in this encounterProvidence Hospital11-01-2023 History of Present illness Narrative* Rossy Richardson DO - 06/29/2023 3:48 PM EDT Images from the original note were not included. Heart , Vascular and Thoracic [facility] DEPARTMENT OF VASCULAR SURGERY OUTPATIENT VISIT DATE June 29, 2023 OUTPATIENT VISIT TYPE ESTABLISHED SERVICE DATE: 06/29/2023 SERVICE TIME: 3:48 PM PRIMARY CARE PHYSICIAN: Smitha Ray IV, DO HISTORY OF PRESENT ILLNESS: Mr. Hagan is a 72 year old male who presents today for a vascular surgery follow-up visit to discuss IVC filter removal. Patient has history of recurrent DVT/PE with underlying hypercoagulability. Was diagnosed with renal cell carcinoma and underwent IVC filter placement on 05/20/22 in preparation for planned nephrectomy. Patient developed hemorrhagic shock from right retroperitoneal hematoma in the setting of spontaneous hemorrhage from right renal mass on 05/24/2022. Underwent vascular embolization on 05/25/2022. Anticoagulation was held. 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 Underwent mechanical thrombectomy of right iliacs and IVC as well as pulmonary left pulmonary artery. Patient ultimately underwent right nephrectomy on 06/21/22. Post operatively developed afib with RVR. PRIOR VASCULAR INTERVENTIONS: 05/20/23 IVC filter placement 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 on chronic Coumadin,managed by pcp Hyperlipidemia 07/08/2017 LBBB (left bundle branch block) 07/08/2017 Orthostasis Other acute embolism veins 11/2008 left leg Other pulmonary embolism and infarction 1998 Other specified disorder of gallbladder Pulmonary HTN (HCC) Recurrent pulmonary emboli (HCC) Renal mass, right S/p nephrectomy S/P Difficult robotic radical nephrectomy on the right Sinus pause SOB (shortness of breath) 07/08/2017 PAST SURGICAL HISTORY Procedure Laterality Date CARDIOVERSION 09/12/2020 Successful conversion from atrial fibrillation to atrial paced rhythm, by Dr. Horan at [facility] CARDIOVERSION 02/04/2021 Successful conversion from atrial fibrillation to sinus rhythm, by Dr. Horan at [facility] CC PCI CORONARY INTERVENT 2018 CT ANGIOGRAPHY CHEST 11/30/2016 w/contrast ECHO TRANSESOPHAG CONGEN PROBE [facility] I&R 01/02/2021 EF 55%, +LAKSHMI thrombus, +PFO ECHO TRANSESOPHAG CONGEN PROBE [facility] I&R 02/04/2021 EF 50%, mildly dilated RV, moderately dilated LA, no ALKSHMI thrombus, no PFO ECHOCARDIOGRAM 01/04/2006 [facility] EKG 12 LEAD 04/23/2011 [facility] EVENT MONITOR 07/08/2017 24 hour LAPS SURG CHOLECYSTECTOMY W/CHOLANGIOGRAPHY 04/21/2009 PACEMAKER IMPLANT Left 07/22/2020 Dual chamber, [employer], MRI compatible 6 weeks after implantm by Dr. Horan at [facility] PAST SURGICAL HISTORY OF Right kidney removal May 2022 STRESS TEST 03/11/2006 [facility] WENDY (TRANSESOPHAGEAL ECHO) 11/30/2016 Nakul/Payton Hastings DO TONSILLECTOMY PRIMARY/SECONDARY AGE 14/> SOCIAL HISTORY Social History Tobacco Use Smoking status: Never Smokeless tobacco: Never Vaping Use Vaping Use: Never used Substance Use Topics Alcohol use: No Drug use: No MEDICATIONS: atorvastatin (LIPITOR) 40 mg tablet^Take 40 mg by mouth once daily.^Disp: ^Rfl: warfarin (COUMADIN) 2 mg tablet^Take 2 mg by mouth daily as directed. 2 MG EVERY DAY EXCEPT FOR TUESDAY^Disp: ^Rfl: sildenafil (REVATIO) 20 mg tablet^Take 1 tablet by mouth two times a day.^Disp: 60 tablet^Rfl: 5 metoprolol succinate ER (TOPROL XL) 25 mg 24 hr tablet^TAKE 2 TABLETS ONE TIME DAILY^Disp: 180 tablet^Rfl: 3 furosemide (LASIX) 40 mg tablet^Take 40 mg by mouth once daily.^Disp: ^Rfl: warfarin (COUMADIN) 5 mg tablet^Take 1 tablet by mouth once daily.^Disp: 30 tablet^Rfl: 0 (Patient taking differently: Take 5 mg by mouth once daily. 2mg EVERY DAY , AND ON TUESDAY IT IS 2 1/2 MG) finasteride (PROSCAR) 5 mg tablet^Take 5 mg by mouth every evening.^Disp: ^Rfl: aspirin, enteric coated (ECOTRIN LOW STRENGTH) 81 mg EC tablet^Take 1 tablet by mouth once daily.^Disp: ^Rfl: cholecalciferol (VITAMIN D3) 50 mcg (2,000 unit) tablet^Take 2,000 Units by mouth twice daily. ^Disp: ^Rfl: escitalopram 20 mg tablet^Take 20 mg by mouth once daily.^Disp: ^Rfl: enoxaparin sodium (LOVENOX SUBCUTANEOUS)^Inject 10 mg subcutaneously.^Disp: ^Rfl: (Patient not taking: Reported on 06/23/2023) atorvastatin (LIPITOR) 80 mg tablet^Take 0.5 tablets by mouth once daily.^Disp: 90 tablet^Rfl: 3 (Patient not taking: Reported on 06/23/2023) ALLERGIES: ALLERGIES No Known Allergies PHYSICAL EXAM: BP 132/80 (BP Site: Left Arm, BP Position: Sitting) Pulse 78 Resp 16 Ht 5' 10 (1.778 m) Wt260 lb (117.9 kg) BMI 37.31 kg/m General: Alert and oriented, No acute distress Cardiovascular: Pulse irregular Lungs: Normal respiratory effort Extremities: No edema, no chronic skin changes, no ulceration Neurological: Normal cognition and motor skills. No weakness or sensory deficit. Vascular: radial palpable, Diagnostic tests reviewed for today's visit: Most recent labs and imaging IMPRESSION: Mr. Hagan is a 72 year old male with history of hypercoagulability, recurrent DVT/PEs/p IVC filter presenting for removal of IVC filter. PLAN and RECOMMENDATIONS: - will need to confirm no plan for upcoming procedure in the near future that would require anticoagulation be held -will need lovenox to coumadin bridge. Will plan to hold coumadin 5 days prior to surgery with lovenox bridge - discussed that IVC filter removal may be difficult given length of time filter has been in place and prior IVC filter thrombosis. Discussed risk including but not limited to risk of bleeding, filter fracture, embolization, and IVC injury and well as failure to remove. I spent 30 minutes in the visit, with more than 50% of the total [id number] time of the visit in counseling / coordination of care. Rossy Richardson DO [facility] History of Present illness Narrative* Deena Waggoner MD - 06/23/2023 11:28 AM EDT Alisa Hagan 1950 June 23, 2023 Cancer Staging No matching staging information was found for the patient. HPI:Alisa Hagan is a 72 year old male who presents as a new referral for recs. Mr. Hagan is a 72 year old male who presented to ER on 06/16/22 for dizziness and difficulty urinating. Of note he was recently admitted with subcapsular hematoma and retroperitoneal bleeding. Had 2 admissions for the same first 1 05/24/2022 to 06/04/2022, total of 11 days, the second 1 was from 06/05/2022 to 06/09/2022 for total duration of 4 days. He has a known history of right renal mass for which she was supposed to undergo robotic right laparoscopic nephrectomy on 06/03/2022. CT abdomen done during the first admission showed large right subcapsular hematoma with area of extravasation from rightrenal mass with hemorrhage extending inferiorly through the right retroperitoneum. His INR was 1.2 at presentation transferred to MICU for hemorrhagic shock. Had a hemoglobin drop from 13.4-7.6. Underwent IR embolization on 05/25/2022. Aspirin and Coumadin were restarted after consultation with urologist. He also underwent IVC placement on 05/20/2022 by vascular considering his history of multiple unprovoked DVTs and PEs. His first episode was about 25 years back treated with therapeutic anticoagulation and taken off anticoagulation after 6 months. He then had a recurrence in 2009 after being off of coumadin for a month per Dr. Zabala's notes. Urology was on consult during his second admission. His aspirin and warfarin was stopped at the time of second discharge. Per IR notes from 06/16/22: Right common femoral vein was accessed. Initial femoral venography showed occlusive thrombus of the infrarenal IVC and proximal right common femoral vein. Thrombectomy of right common femoral vein and IVC performed without incident. Bilateral pulmonary angiogram performed, showing filling defects in segmental pulmonary arteries bilaterally and central filling defect in the left main pulmonary artery. Left pulmonary artery mechanical thrombectomy performed without incident. Pre-thrombectomy pulmonary artery pressure was measured as a mean of 34mmHg. Post thrombectomy pulmonary artery pressure measured a mean of 33mmHg. On review of chart, pt was seen by Heme - Dr. Zabala in . Workup at that time was negative for hypercoaguable state EXCEPT for equivocal IgM cardiolipin Abs. 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 He did not have PAI1 testing. Today he is resting in bed. He is currently on hep gtt. He was having his INR checked with PCP. Says that he was doing well on Coumadin and very stable INR. Says the pain in the R flank started in December and was bad enough that it brought him to his knees. Saw outside urology and ultimately says he was not happy with care so he switched. Pt is concerned this morning that urology resident told him he was not going back on blood thinners. In Afib on monitor. No active bleeding. Interval history: Today he is here for follow up. Has been out of his sildenafil for about 6 weeks. Getting it today. SOB worse without it. Wondering about ablation or cardioversion. Tries to do things and he gets very fatigued. If he sitsdown, then he falls asleep. He then feels better and gets going. Then can't sleep at night. Had the biopsy and it was very sore. Back on coumadin. Never did the Lovenox post biopsy just went back on Coumadin. $300 for the Lovenox. Got lots of bruises with lovenox shots. No bleeding. +Abd pain. R midline to the R of umbilicus. Pain there but mri was negative. No SOB, CP. Sees Dr. Ray Missed a week in June post d/c of the Coumadin as pills weren't in box. 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 on chronic Coumadin,managed by pcp Hyperlipidemia 07/08/2017 LBBB (left bundle branch block) 07/08/2017 Orthostasis Other acute embolism veins 11/2008 left leg Other pulmonary embolism and infarction 1998 Other specified disorder of gallbladder Pulmonary HTN (HCC) Recurrent pulmonary emboli (HCC) Renal mass, right S/p nephrectomy S/P Difficult robotic radical nephrectomy on the right Sinus pause SOB (shortness of breath) 07/08/2017 PAST SURGICAL HISTORY Procedure Laterality Date CARDIOVERSION 09/12/2020 Successful conversion from atrial fibrillation to atrial paced rhythm, by Dr. Horan at [facility] CARDIOVERSION 02/04/2021 Successful conversion from atrial fibrillation to sinus rhythm, by Dr. Horan at [facility] CC PCI CORONARY INTERVENT 2018 CT ANGIOGRAPHY CHEST 11/30/2016 w/contrast ECHO TRANSESOPHAG CONGEN PROBE [facility] I&R 01/02/2021 EF 55%, +LAKSHMI thrombus, +PFO ECHO TRANSESOPHAG CONGEN PROBE [facility] I&R 02/04/2021 EF 50%, mildly dilated RV, moderately dilated LA, no LAKSHMI thrombus, no PFO ECHOCARDIOGRAM 01/04/2006 [facility] EKG 12 LEAD 04/23/2011 [facility] EVENT MONITOR 07/08/2017 24 hour LAPS SURG CHOLECYSTECTOMY W/CHOLANGIOGRAPHY 04/21/2009 PACEMAKER IMPLANT Left 07/22/2020 Dual chamber, [employer], MRI compatible 6 weeks after implantm by Dr. Horan at [facility] PAST SURGICAL HISTORY OF Right kidney removal May 2022 STRESS TEST 03/11/2006 [facility] WENDY (TRANSESOPHAGEAL ECHO) 11/30/2016 Nakul/Payton Hastings,DO TONSILLECTOMY PRIMARY/SECONDARY AGE 14/> Current Outpatient Medications Medication Sig Dispense Refill atorvastatin (LIPITOR) 40 mg tablet Take 40 mg by mouth once daily. warfarin (COUMADIN) 2 mg tablet Take 2 mg by mouth daily as directed. 2 MG EVERY DAY EXCEPT FOR TUESDAY sildenafil (REVATIO) 20 mg tablet Take 1 tablet by mouth two times a day. 60 tablet 5 metoprolol succinate ER (TOPROL XL) 25 mg 24 hr tablet TAKE 2 TABLETS ONE TIME DAILY 180 tablet 3 furosemide (LASIX) 40 mg tablet Take 40 mg by mouth once daily. warfarin (COUMADIN) 5 mg tablet Take 1 tablet by mouth once daily. (Patient taking differently: Take 5 mg by mouth once daily. 2mg EVERY DAY , AND ON TUESDAY IT IS 2 1/2 MG) 30 tablet 0 finasteride (PROSCAR) 5 mg tablet Take 5 mg by mouth every evening. aspirin, enteric coated (ECOTRIN LOW STRENGTH) 81 mg EC tablet Take 1 tablet by mouth once daily. cholecalciferol (VITAMIN D3) 50 mcg (2,000 unit) tablet Take 2,000 Units by mouth twice daily. escitalopram 20 mg tablet Take 20 mg by mouth once daily. enoxaparin sodium (LOVENOX SUBCUTANEOUS) Inject 10 mg subcutaneously. (Patient not taking: Reportedon 06/23/2023) atorvastatin (LIPITOR) 80 mg tablet Take 0.5 tablets by mouth once daily. (Patient not taking: Reported on 06/23/2023) 90 tablet 3 Current Facility-Administered Medications Medication Dose Route Frequency Provider Last Rate Last Admin perflutren lipid microspheres 1.3 mL in NaCl (PF) 0.9% 10 mL injection (DEFINITY) INTRAVENOUS DIRECTED PRN Niharika Frias MD sodium chloride 0.9 % (flush) 10 mL (BD POSIFLUSH) 10 mL INTRAVENOUS DIRECTED PRN Veronika Frias MD ALLERGIES No Known Allergies FAMILY HISTORY Problem Relation Age of Onset Arthritis Mother Cancer Mother Blood Disease Father clotting factor Diabetes Father Seizures Father Blood Disease Sister clotting factor DVT Sister Blood Disease Brother clotting ffactor DVT Brother Social History Tobacco Use Smoking status: Never Smokeless tobacco: Never Vaping Use Vaping Use: Never used Substance Use Topics Alcohol use: No Drug use: No I have reviewed the PMHx, PSHx, social history and ROS on June 23, 2023 - all new information noted. Review of Systems: Constitutional: No fevers, chills, drenching night sweats or unintentional weight loss. HEENT: No yellowing of the eyes, no vision changes, no hearing loss or ear pain, no nosebleeds or drainage, no sore throat. Neck: No complaints. Chest: No SOB or cough, no ESTRADA, no hemoptysis, no wheezing. Breast: No complaints. Heart: No chest pain, pressure or tightness. No racing heartbeat. Abdominal: No pain or difficulty with swallowing, no N/V, no early satiety, no abdominal pain or bloating, no diarrhea or constipation, no change in bowel habits, no blood in the urine. Genitourinary: No pain or burning with urination, no incontinence, no blood in the urine. Extremities: no pain or swelling. Neurological: No headaches, no numbness or tingling in the extremities, no double vision. Skin: No rashes or ulcerations, no change in pigmentation. Nodes: no enlargement per patient. Heme: No easy bruising or bleeding, no yellowing of the eyes or darkening of urine. Psychiatric: no anxiety or depression. Immunologic: No recurrent or persistent infections of the sinuses, lungs or urinary tract. Endocrine: No hair or nail changes, no polyuria, polydipsia, or polyphagia. Appetite normal. I have performed the physical exam on June 23, 2023 - all new findings noted below. Physical Exam: BP 123/84[RT ARM[ Pulse 79 Temp (Src) 96.9 (Temporal) Ht 5' 10 (1.78m) Wt 256 lb (116.1kg) SpO2 96% BMI 36.73 kg/(m^2). ECOG PS: 0 Pain Intensity: 0/10 General: Age-appropriate well developed. Appears well. HEENT: Normocephalic, no sclera icterus, external ears normal, oral cavity clear. Neck: Supple, no thyroid nodules, no JVD. Chest: Clear bilaterally, no wheezes, not labored. Heart: Normal S1 and S2, no abnormal sounds, peripheral pulses synchronized. +Afib but rate controlled. Abdomen: Soft, nontender, nondistended, bowel sounds present, no organomegaly or mass, no rigidity. /Rectal: deferred Extremities: No cyanosis, clubbing, gross deformities, or palpable cords. Neurological: Cranial nerves II through XII are intact bilaterally, strength normal in the upper and lower extremities, no focal deficits. Skin: Warm and dry with no rashes or ulcerations. Nodes: No palpable adenopathy in the cervical, supraclavicular, infraclavicular, or axillary regions. Hematologic: no bruising or petechiae. Psychiatric: Alert and oriented x3. Emotional well-being assessment was performed. Pt denies depression, distress, and or problems with coping or adjustment. Labs CBC:No results for input(s): WBC, HB, HCT, PLT, MCV, RDWCV, NEUTP, ABSNEUT, LYMPHP, MONOP, EODINP in the last 168 hours. COAG: No results for input(s): APTT, INR in the last 168 hours. BMP: No results for input(s): GLUC, NA, K, CHLOR, CO2, ANION, BUN, CREAT in the last 168 hours. CHEM: No results for input(s): ALB, TPROT, CA, MG in the last 168 hours. Pacemaker Clinic F/U on 06/14/2023 Component Date Value PM-Device [facility] 06/14/2023 BSX Model 06/14/2023 L331 ACCOLADE MRI EL Serial Number 06/14/2023 [id number] Implant Date 06/14/2023 07/22/2020 BLANK 06/14/2023 _ Lead1 [facility] 06/14/2023 [employer] Model 06/14/2023 [id number] Ingevity+IS-1 Serial Number 06/14/2023 [id number] Location 06/14/2023 RA Implant Date 06/14/2023 07/22/2020 BLANK 06/14/2023 _ Lead2 [facility] 06/14/2023 [employer] Model 06/14/2023 [id number] Ingevity+IS-1 Serial Number 06/14/2023 [id number] Location 06/14/2023 RV Implant Date 06/14/2023 07/22/2020 BLANK 06/14/2023 _ Rhythm 06/14/2023 Afib 67-115 bpm Pacemaker Dependent? 06/14/2023 NO RA Bipolar Impedance ohms 06/14/2023 610 RV Bipolar Impedance ohms 06/14/2023 728 PM-Percent Pacing (A) 06/14/2023 0 PM-Percent Pacing (V) 06/14/2023 6 Pacing Mode 06/14/2023 DDDR Lower Rate (bpm) 06/14/2023 60 Tracking Rate (bpm) 06/14/2023 130 Steven RA Sensing Amplitu* 06/14/2023 0.25 Steven RA Sensing Polarity 06/14/2023 BI Steven RV Sensing Amplitu* 06/14/2023 1.5 Steven RV Sensing Polarity 06/14/2023 BI Steven RA Pacing Amplitud* 06/14/2023 2.0 Steven RA Pacing Pulse Wi* 06/14/2023 0.4 Steven RA Pacing Polarity 06/14/2023 BI Steven RV Pacing Amplitud* 06/14/2023 3.5 Steven RV Pacing Pulse Wi* 06/14/2023 0.4 Steven RV Pacing Polarity 06/14/2023 BI AV Delay Paced (ms) 06/14/2023 100 AV Delay Sensed (ms) 06/14/2023 90 AV Delay Adaptive Paced * 06/14/2023 300 AV Delay Adaptive Sensed* 06/14/2023 270 Thresh RV Capture Amplit* 06/14/2023 0.9 Thresh RV Capture Durati* 06/14/2023 0.4 Appointment on 04/11/2023 Component Date Value WBC 04/11/2023 8.22 RBC 04/11/2023 5.54 Hemoglobin 04/11/2023 16.1 Hematocrit 04/11/2023 49.5 MCV 04/11/2023 89.4 MCH 04/11/2023 29.1 MCHC 04/11/2023 32.5 RDW-CV 04/11/2023 14.3 Platelet Count 04/11/2023 191 MPV 04/11/2023 9.6 Absolute nRBC 04/11/2023 <0.01 Albumin 04/11/2023 4.1 Bilirubin, Total 04/11/2023 2.6 (H) Bilirubin, Conjugated 04/11/2023 0.2 (H) Alkaline Phosphatase 04/11/2023 106 AST 04/11/2023 20 ALT 04/11/2023 27 Protein, Total 04/11/2023 7.1 Hemoglobin A1C 04/11/2023 6.5 (H) Estimated Average Glucose 04/11/2023 140 PSA 04/11/2023 0.80 PSA, Percent Free 04/11/2023 16 PTH, Intact 04/11/2023 83 (H) Vitamin D 25 Hydroxy 04/11/2023 47.5 TSI Qualitative 04/11/2023 Negative TSI 04/11/2023 <0.10 Free T4 04/11/2023 1.4 Creatinine, Ur Random (U* 04/11/2023 148.6 Albumin, Urine Random 04/11/2023 29.9 Albumin/Creat Ratio 04/11/2023 20 Protein, Urine Random 04/11/2023 15 Creatinine, Ur Random (U* 04/11/2023 148.6 Protein/Creat Ratio 04/11/2023 0.10 Hep C Antibody IA 04/11/2023 Negative Cholesterol, Total 04/11/2023 182 Triglyceride 04/11/2023 192 (H) HDL Cholesterol 04/11/2023 58 Non HDL Cholesterol 04/11/2023 124 Fasting Time 04/11/2023 12 VLDL Cholesterol 04/11/2023 38 (H) TC:HDL Ratio 04/11/2023 3.14 LDL Cholesterol 04/11/2023 86 LDL:HDL Ratio 04/11/2023 1.48 Glucose 04/11/2023 124 (H) BUN 04/11/2023 35 (H) Creatinine 04/11/2023 1.71 (H) Sodium 04/11/2023 136 Potassium 04/11/2023 4.4 Chloride 04/11/2023 102 CO2 04/11/2023 23 Anion Gap 04/11/2023 11 Calcium, Total 04/11/2023 9.2 Estimated Glomerular Gilles* 04/11/2023 43 (L) Phosphorus 04/11/2023 3.4 Radiology: CT c/a/p 02/22/22: Stable appearance of multiple calcified granulomata throughout both lungs. Stableappearance of the chest compared to prior exam. 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 3.7 CM RIGHT INTERPOLAR RENAL NEOPLASM. NO LYMPHADENOPATHY OR DEFINITE RENAL VEIN THROMBUS IDENTIFIED ON THIS SINGLE PHASE EXAM. IF NOT ALREADY PERFORMED, UROLOGIC CONSULTATION IS RECOMMENDED. 2 CM RIGHT ADRENAL ADENOMA. CT a/p 05/24/22: Interval development of large right subcapsular hematoma with areas of active extravasation suspected to be from the known right renal mass. Hemorrhage extends inferiorly throughout the right retroperitoneum. Interval placement of inferior vena cava filter. The inferior vena cava isdisplaced and compressed by right retroperitoneal hemorrhage. VQ 06/07/22: LOW probability VQ scan. If there is a discordant clinical likelihood of thromboembolic disease, additional evaluation with lower extremity venous Dopplers and/or contrast-enhanced PE protocol chest CT may be performed. CT c/a/p 06/16/22: Bilateral pulmonary emboli. There is right-sided heart strain. Stable calcified mediastinal lymph nodes and calcified granulomas. Grossly stable appearance of right upper pole mass. Redemonstration of hemorrhage in the right kidney, right retroperitoneum, and left wrist were obtained. The overall size and configuration is stable from outside study 06/05/2022. No contrast pooling on the delayed images to suggest active contrast extravasation. Diffuse hypoenhancement of the rightrenal cortex is new from 05/24/2022, which raises the concern of infarct. The right renal artery is grossly patent. Diffuse thrombosis in bilateral lower extremities, iliac veins and IVC, which extends above the IVC filter. IR Procedure 06/17/22: Venography from the right common femoral vein showing thrombus within the proximal right common femoral vein and infrarenal IVC. Technically successful mechanical thrombectomy of right common femoral vein and infrarenal IVC as described above. Angiography of the pulmonary arteries demonstrates chronic appearing filling defect in the posterior basal segment of the right lower lobar pulmonary artery and central filling defect in the left main pulmonary artery extending intothe upper and lower lobar branches compatible with pulmonary emboli. Technically successful mechanical thrombectomy of left pulmonary arteries as described above. US BLEs 06/17/22: Positive for extensive occlusive left lower extremity superficial and deep venousthrombosis. No definite evidence of right lower extremity venous thrombosis. CT c/a/p 06/26/22: Trace bilateral pleural effusion along with presumed atelectasis at the posterior portion of each lower lobe. 2. Small atelectasis or pneumonia at the posterior left upper lobe. 3. Evidence of prior granulomatous disease. Status post right nephrectomy. Within the superior renal fossa, there is a somewhat reniform soft tissue mass. This likely represents hematoma although some residual upper pole of the kidney is not excluded. Correlate with surgical findings. 2. Again noted is a large right retroperitoneal hematoma. It is difficult to determine how much of this is old hematoma versus the development of new hematoma. However, portions do appear larger concerning for recurrent bleed. Correlate clinically. 3. There is a small amount of pneumoperitoneum. This may be secondary to the recent surgery. However, bowel perforation is not excludable on this exam. Follow-up as indicated. 4. Secondary findings of left lower extremity DVT again noted. US BLEs 06/29/22: No significant change from the examination performed 06/17/2022. Extensive left lower extremity superficial thrombophlebitis and DVT as noted above. CT a/p 07/01/22: Prior right nephrectomy, stable appearing rounded structure within the superior aspect of the right renal fossa which could represent either residual portion of right kidney or focal hematoma. Right-sided retroperitoneal hematoma extending into and involving the right psoas muscle, slightly more prominent. A small component of high density just anterior to the right common iliac artery may represent area of recent hemorrhage, otherwise, no additional areas of hyperdensity to suggest recent hemorrhage. Resolved pneumoperitoneum, decreased subcutaneous air. US Scrotum 07/02/22: The testicles are heterogeneous in echotexture without focal lesion. Multiple small cysts of the left epididymal head. Echogenic nonvascular focus lateral to the right testicle of unknown etiology. Left-sided varicocele. CT chest/flank 09/29/22: Sequela of prior granulomatous exposure. Status post right nephrectomy. Slight interval decrease in size of a rounded lesion in the superior right nephrectomy bed suggesting slowly resolving hematoma, however continued attention on follow-up imaging is advised. 2. Persistent though significantly decreased in size right retroperitoneal hematoma. 3. No suspect lymphadenopathy. 4. Left renal hypodense lesions are incompletely characterized in the absence of intravenous contrast material though statistically likely cysts. 5. Stable right adrenal adenoma. MRI abd 11/10/22: Enhancing lesion in the renal bed could represent residual renal parenchymal tissue or neoplasm. There is adjacent hematoma. Right adrenal adenoma. Left renal cysts MRI abd 06/14/23: Stable 2.7 cm cystic and solid nodularity in the right surgical bed. Stable fat necrosis in the posterior pararenal 2. No new retroperitoneal lymphadenopathy. 3. A 0.6 cm nodularity in the posterior right paracolic gutter is slightly more conspicuous, possibly due to slice thickness, attention on follow-up is recommended. Pathology: Soft tissue biopsy of the R renal fossa 12/13/22: Soft tissue mass of right renal fossa, core biopsy: - Benign renal tissue with chronic pyelonephritis and globally sclerotic glomeruli. Assessment and Plan: 1) Bilateral PEs without heart strain - noted on CT chest 06/16/22. - due to being off of OAC for R renal hematoma. - restarted a few weeks post hematoma. - Dr. Ray checking INR. Last INR was in the last 2 weeks. Will check again in 2 weeks. INR was stable per pt. 2) LLE DVT - very extensive 3) Presence of IVC filter - s/p thrombectomy of pulmonary and abd vessels in IR on 06/16/22 due to stent occlusion and clots. 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 - recommend pt goes back on coumadin and will need to stay on this lifelong. - reviewed with pt. 5) R renal mass the hematoma - urology following him. - needs surgery at some point but per notes, recommending surgery in about 3-4 mo to try and save kidney. - this tumor is likely adding to his hypercoaguable state. 6) Chronic pyelo on exam and biopsy. - following with urology. 7) Afib - on AC with coumadin. I reviewed the above with the patient. Ideally he cannot be without any anticoagulation unless massively bleeding or life threatening. IVC filter will need to remain given it is clogged with clot despite thrombectomy. Will follow. Will add in ELOINA-1 as this was not tested in 2009. if needs ablation or cardioversion, will change to lovenox. Pt to call me if and when that happens. Needs an appt with Dr. Richardson to discuss possible IVC removal. Not sure that can be done though. Encouraged use of Lovenox when bridging. The patient was able to ask questions and all were answered to his satisfaction. I will see him back for follow up in 6 mo Parts of the HPI, ROS, exam and impression/plan may have been copied from my personal previous clinical note and remain pertinent. Current changes have been made and documented today. Other parts or data were deleted if not relevant for today. The documentation has been reviewed and edited as necessary to support the clinical decision makingfor today's visit. Deena Waggoner MD documented in this encounterProv[facility]10-26-[facility]23 History of Present illness Narrative* Niharika Frias MD - 06/23/2023 10:02 AM EDT Images from the original note were not included. Patient Name: Alisa Hagan PRIMARY CARE PHYSICIAN: Smitha Ray IV, DO Date of visit: June 23, 2023 COMMUNICATION WILL BE SENT VIA SHARED MEDICAL RECORDS OR US MAIL. Subjective: Alisa Hagan is a 72 year old male who is here for follow up for pulmonary hypertension. Patient has additional hx of PE and suspected EZIO. In addition, he has history of persistent A.Fib s/p PPMin which he believes much of his fatigue may be secondary to this. Since his last visit, he tells me that he has been dealing with increasing back pain in which imaging at [facility] of his back has shown degradation of his spine. With regards to respiratory symptoms, he continues to have ongoing exertional dyspnea. He tells me that his sildenafil prescription has run out, and has been off it for about 6 weeks. This has been associated with worsening dyspnea. He is scheduled to get it today in the mail. He is having persistent pedal edema, but this hasn't worsened since last visit. His weight is stable. Denies any chest pain, lightheadedness, or syncopal episodes. Continues to follow with Dr Sparks for A.Fib. Currently on metoprolol for rate control strategy and coumadin daily. Patient continues to believe majority of his SOB and fatigue is largely due to persistent A.Fib and wants to consider ablative procedures (for more rhythm control approach). Patient again remains on coumadin given A.Fib and history of PE. Tolerating well. Continues to haveIVC filter in place, did not get evaluated by IR/vascular surgery for IVC filter removal. 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 This has been complicated by development of R subcapsular hematoma with hemorrhageextending to R retroperitoneum and subsequent hemorrhagic shock requiring IR embolization (05/25/2022) and prolonged ICU stay. He underwent IVC filter placement on 05/20. His ASA and coumadin were discontinued at date of his second discharge. He was then re-hospitalized back on 06/16 with acute dizziness in which imaging was impressive for bilateral pulmonary embolism (while off anticoagulation) in which he underwent catheter directed thrombectomy with success. It was during this hospitalization he had robotic assisted laparoscopic R radical nephrectomy which was complicated by development of A.Fib with RVR and some blood loss anemia.He eventually was started on heparin gtt post-operatively and discharged on coumadin with follow upwith our office in outpatient setting (07/2022) PMHx: 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 on chronic Coumadin,managed by pcp Hyperlipidemia 07/08/2017 LBBB (left bundle branch block) 07/08/2017 Orthostasis Other acute embolism veins 11/2008 left leg Other pulmonary embolism and infarction 1998 Other specified disorder of gallbladder Pulmonary HTN (HCC) Recurrent pulmonary emboli (HCC) Renal mass, right S/p nephrectomy S/P Difficult robotic radical nephrectomy on the right Sinus pause SOB (shortness of breath) 07/08/2017 MEDICATIONS: sildenafil (REVATIO) 20 mg tablet^Take 1 tablet by mouth two times a day.^Disp: 60 tablet^Rfl: 5 metoprolol succinate ER (TOPROL XL) 25 mg 24 hr tablet^TAKE 2 TABLETS ONE TIME DAILY^Disp: 180 tablet^Rfl: 3 enoxaparin sodium (LOVENOX SUBCUTANEOUS)^Inject 10 mg subcutaneously.^Disp: ^Rfl: (Patient not taking: Reported on 06/23/2023) furosemide (LASIX) 40 mg tablet^Take 40 mg by mouth once daily.^Disp: ^Rfl: warfarin (COUMADIN) 5 mg tablet^Take 1 tablet by mouth once daily.^Disp: 30 tablet^Rfl: 0 (Patient taking differently: Take 5 mg by mouth once daily. 2mg EVERY DAY , AND ON TUESDAY IT IS 2 1/2 MG) finasteride (PROSCAR) 5 mg tablet^Take 5 mg by mouth every evening.^Disp: ^Rfl: atorvastatin (LIPITOR) 80 mg tablet^Take 0.5 tablets by mouth once daily.^Disp: 90 tablet^Rfl: 3 (Patient not taking: Reported on 06/23/2023) aspirin, enteric coated (ECOTRIN LOW STRENGTH) 81 mg EC tablet^Take 1 tablet by mouth once daily.^Disp: ^Rfl: cholecalciferol (VITAMIN D3) 50 mcg (2,000 unit) tablet^Take 2,000 Units by mouth twice daily. ^Disp: ^Rfl: escitalopram 20 mg tablet^Take 20 mg by mouth once daily.^Disp: ^Rfl: atorvastatin (LIPITOR) 40 mg tablet^Take 40 mg by mouth once daily.^Disp: ^Rfl: warfarin (COUMADIN) 2 mg tablet^Take 2 mg by mouth daily as directed. 2 MG EVERY DAY EXCEPT FOR TUESDAY^Disp: ^Rfl: Allergies: Patient has no known allergies. ROS: GENERAL: (-) fevers, (-) chills, (-) night sweats, (-) nausea/vomiting, (-) weight loss, (-) weightgain HEENT: (-) runny nose, (-) sore throat, (-) post-nasal drip RESPIRATORY: As above in subjective CARDIOVASCULAR: (-) chest pain, (-) palpitations, (-) LE edema. All other 10 point ROS reviewed and negative except for that mentioned above. PHYSICAL EXAM: BP 139/98 Pulse 85 Temp (Src) 96.7 (Temporal) Resp 16 Ht 5' 10 (1.78m) Wt 257 lb 8 oz (116.8kg) SpO2 95[ROOM AIR]% BMI 36.95 kg/(m^2). General- nad, comfortable in general appearance Eyes- eomi, perrl ENT- oropharynx clear, atraumatic Neck- supple, no obvious JVD CV- RRR, no M/G/R Resp- clear to auscultation bilaterally, no wheezes or crackles, breathing nonlabored Abd- +bs, soft, nt, nd Ext- no clubbing, cyanosis, or edema Derm- no lesions/rashes Psych- appropriate mood and affect Labs / Imaging / Diagnostic Studies: Diagnostic tests reviewed for today's visit, films/specimens were personally reviewed by me. CT Chest 09/2022 IMPRESSION: Sequela of prior granulomatous exposure. CT Flank 09/2022 IMPRESSION: 1. Status post right nephrectomy. Slight interval decrease in size of a rounded lesion in the superior right nephrectomy bed suggesting slowly resolving hematoma, however continued attention on follow-up imaging is advised. 2. Persistent though significantly decreased in size right retroperitoneal hematoma. 3. No suspect lymphadenopathy. 4. Left renal hypodense lesions are incompletely characterized in the absence of intravenous contrast material though statistically likely cysts. 5. Stable right adrenal adenoma. CT Abd/pelvis 06/2022 IMPRESSION: Prior right nephrectomy, stable appearing rounded structure within the superior aspect of the right renal fossa which could represent either residual portion of right kidney or focal hematoma. Right-sided retroperitoneal hematoma extending into and involving the right psoas muscle, slightly more prominent. A small component of high density just anterior to the right common iliac artery may represent area of recent hemorrhage, otherwise, no additional areas of hyperdensity to suggest recent hemorrhage. Resolved pneumoperitoneum, decreased subcutaneous air. CT abd/pelvis 05/2022 IMPRESSION: Grossly stable appearance of right upper pole mass. Redemonstration of hemorrhage in the right kidney, right retroperitoneum, and left wrist were obtained. The overall size and configuration is stable from outside study 06/05/2022. No contrast pooling on the delayed images to suggest active contrast extravasation. Diffuse hypoenhancement of the right renal cortex is new from 05/24/2022, which raises the concern of infarct. The right renal artery is grossly patent. Diffuse thrombosis in bilateral lower extremities, iliac veins and IVC, which extends above the IVC filter. CT Chest 05/2022 IMPRESSION: Bilateral pulmonary emboli. There is right-sided heart strain. Stable calcified mediastinal lymph nodes and calcified granulomas. CT chest 11/2018 IMPRESSION: No evidence for diffuse lung disease. Scattered granulomata. Coronary artery disease. CT chest w/ contrast 11/2016: IMPRESSION: 1. No evidence of pulmonary embolic disease. 2. Limited inspiratory volume with slight elevation of right hemidiaphragm. 3. Evidence of chronic granulomatous disease. 4. Mild irregular parenchymal densities in both lower lobes most likely related to crowded lung markings and/or dependent atelectasis. V/Q scan 08/2017: IMPRESSION: THE STUDY IS MOST CONSISTENT WITH A LOW PROBABILITY OF PULMONARY EMBOLISM. CXR 08/2017: IMPRESSION: Scattered bilateral nodules which are probably calcified granulomata. This could be confirmed with CAT scan. 6MWT 08/2017: Ambulation of 419 m w/ no desaturation on RA with exertion or at rest PFTs 09/2022 PFTs 08/2017: FVC 2.87L 62% FEV1 2.22L 64% FEV1/FVC 77% TLC 5.47L 78% DlCO 68%-->91% WENDY 08/2022 CONCLUSIONS: - Exam indication: Pre Cardioversion, Pre AF Ablation - The left ventricle is normal in size. Left ventricular systolic function is mildly decreased. EF = 45 5% (visual est.) - The right ventricle is normal in size. Right ventricular systolic function is low normal. - The left atrial cavity is dilated. There is no left atrial appendage thrombus. - There is mild (1+) mitral valve regurgitation. TTE 05/2022 - The left ventricle is normal in size. There is mild left ventricular hypertrophy. Left ventricular systolic function is normal. EF = 63 5% (2D biplane) Definity contrast used for endocardial border detection. Difficult to assess LV size and function due to beat to beat variability. - The right ventricle is normal in size. Right ventricular systolic function is low normal. TTE 09/2019 The left ventricle is normal in size. There is no left ventricular hypertrophy. Left ventricular systolic function is mildly decreased. EF = 49 5% (2D biplane) Definity contrast used for endocardial border detection. Grade I left ventricular diastolic dysfunction. - The right ventricle is normal in size. Right ventricular systolic function is normal. - The left atrial cavity is moderately dilated. - There are no significant valvular abnormalities. TTE 10/2018: The left ventricle is normal in size. Left ventricular systolic function is normal. Definity contrast used for endocardial border detection. Indeterminate left ventricular diastolic dysfunction due to AF. - The right ventricle is normal in size. Right ventricular systolic function is low normal. Tricuspid annular displacement is 1.7 cm. - The right atrial cavity is dilated. - There are no significant valvular abnormalities. RHC/LHC 04/2018: Moderate to severe 2 vessel CAD LVEF 55% RHC 04/2018: RVp 38/8 mmHg RAp 17mmHg PAP 55/19 (35mmHg) PAOP 17 mmHg DP TP CO 4.68 PVR 3.84 KINCAID No step up saturations PSG 03/2023 1. Upper Airway Resistance Syndrome (UARS) is a subtype of obstructive sleep apnea (EZIO). Although the overall apnea-hypopnea index (AHI) was in the normal range at 4.1, the respiratory disturbance index (RDI) was in the mild range at 8.4, indicating potential clinical significance. Severity of the sleep-related breathing disorder may be underestimated due to limited recorded REM supine sleep, and to the presence of mild flow and effort decrements associated with arousal and/or oxygen desaturations not meeting established [facility] respiratory event criteria. 2. A moderate supine REM-related component was present with an AHI of 15.0. 3. Mild snoring recorded. 4. Frequent periodic limb movements not causing arousal from sleep and periodic and aperiodic limb movements during wakefulness were observed. These findings are suggestive of restless legs syndrome (RLS). The patient also endorses symptoms suggestive of RLS on the pre-study questionnaire. As RLS remains a clinical diagnosis, further clinical correlation is advised. 5. No significant impact upon sleep by restless legs with a PLM Arousal Index of 2.4. 6. EKG monitoring revealed atrial fibrillation which is persistent per the EMR. The patient is on Coumadin. 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 Continue to defer any escalation at this time. - Recommend continued lasix therapy. - Encourage ongoing daily weights and low salt diet - Recommend repeat TTE prior to next visit - Continue to follow with EP with regards to A.Fib management. Would strongly consider undergoing EP ablation procedure for more rhythm control strategy. - With regards to OAC, continue indefinite coumadin therapy and if indeed patient were to undergo ablative procedure, would recommend bridging with lovenox and coordinating with hematology. - Patient continues to have IVC filter in place, will again reach out to vascular to see if this could be removed and avoid permanent IVC placement. - Continue efforts of exercise/weight loss as tolerated - Continue follow up with cardiology (Dr Denny) - Patient underwent PSG which was negative for evidence of EZIO. [facility] Follow-Up Categorization: 3-6 MONTHS [facility] PH Therapy Categorization: Stable Therapy (no changes in PH therapy) Return in about 3 months (around 09/23/2023). Niharika Frias MD June 23, 2023 10:02 AM documented in this encounterProvidence Hospital10-23-2023 Note ORIGINAL EXAMINATION: BONE DENSITOMETRY 06/20/2023 1:04 pm TECHNIQUE: A bone density dual x-ray absorptiometry (DEXA) scan was performed of the lumbar spine and left hip. COMPARISON: None. HISTORY: Reason for Exam: Osteoporosis Screening FINDINGS: BMD (g/cm2) Lumbar Spine L1-L4: 1.216. T Score Lumbar Spine L1-L4: 1.1 BMD (g/cm2) Left Femoral Neck: 0.741. T Score Left Femoral Neck: -1.4 BMD (g/cm2) Left Hip: 0.972. T Score Left Hip: -0.4 FRAX: 10 year fracture risk assessment Major osteoporotic fracture: 5.5% Hip fracture: 1.1% IMPRESSION: Osteopenia. I have personally reviewed the images of this examination and agree with the resident's findings and interpretation. Interpreted by: Venkata Saldaña MD Preliminary Report By: Vazquez Aguilar Electronically signed By Venkata Saldaña MD Dictated Date: 06/20/2023 1:04:54 PM Prelim Date: 06/20/2023 5:46:42 PM Sign Date: 06/20/2023 5:46:42 PM Ordering Provider: [facility]10-17-2023 History of Present illness Narrative* Smitha Rubi, RT(R) - 06/14/2023 10:00 AM EDT Radiology Service Progress Note DATE OF SERVICE: June 14, 2023 TIME: 11:09 AM PATIENT IDENTITY VERIFICATION COMPLETED USING TWO (2) STANDARD IDENTIFIERS: Name and Date of confirmed by patient verbally and Name and Date of confirmed by identification band. FALL SCREENING: Has the patient had 2 falls in the last year or 1 fall with injury or currently using an Ambulatory Assistive Device (Walker, Cane, Wheelchair, Crutches, etc.)? No PATIENT GENDER DATA: Male PATIENT RELEVANT IMPLANT DATA REVIEWED: Not Applicable ALLERGIES: Reviewed and unchanged CONTRAST ALLERGY: NO. EXAM: MRI - CONTRAST TYPE: GROUP II PERIPHERAL IV DATA: Ambulatory: A peripheral IV was started in the Right upper extremity with a Angio cath: 22 gauge. RADIOLOGY DEPARTMENT: MR; Exam(s) Completed: Body: Renal SIGNATURE: RT Rowdy(R) PATIENT NAME: Alisa Hagan DATE: June 14, 2023 TIME: 11:09 AM documented in this encounterProvidence Hospital10-11-2023 Miscellaneous Notes* Telephone Encounter - Luz Maria Riggins - 06/08/2023 1:59 PM EDT PA request received for sildenafil * Telephone Encounter - Zina Toney - 06/08/2023 10:34 AM EDT Rx mail pharmacy faxed requesting the following refill. Requested Prescriptions Pending Prescriptions Disp Refills sildenafil (REVATIO) 20 mg tablet 60 tablet 5 Sig: Take 1 tablet by mouth two times a day. Patient Phone numbers: [phone] (home) [phone] (work) Request is for script(s) to be escript to pharmacy. Zina Toney documented in this encounterProvidence Hospital09-08-2023 Miscellaneous Notes* Telephone Encounter - Liat Cruz RN - 05/06/2023 2:07 PM EDT Images from the original note were not included. Niharika Frias MD P [facility] Nurse Pool Please notify patient that he does not have sleep apnea based on sleep study, but there was some findings that would suggest improved sleep quality if he improves his sleep hygiene and have some weight loss Pt notified of results. Liat Cruz RN * Telephone Encounter - Luz Maria Riggins - 05/06/2023 1:37 PM EDT Images from the original note were not included. Niharika Frias MD P [facility] Nurse Pool Please notify patient that he does not have sleep apnea based on sleep study, but there was some findings that would suggest improved sleep quality if he improves his sleep hygiene and have some weight loss Called pt, no answer, left a message for pt to call office for results. documented in this encounterProvidence Hospital08-08-2023 History of Present illness Narrative* Toni Massey MD - 04/05/2023 8:21 AM EDT April 05, 2023 An order has been received for Polysomnogram (PSG) from Niharika Downing MD, A. Sleep Center Staff/Laundry Route Driver Staff Orders. Visit prep complete - Please refer to the sleep study order (under procedures tab) for protocol details and special instructions. The sleep study is scheduled for 04/10/2023. Insurance: Payor: MEDICARE / Plan: MEDICARE A AND B / Product Type: Medicare / Payer/Plan Subscr Sex Relation Sub. Ins. ID Effective Group Num 1. MEDICARE - ME* ALISA HAGAN 1950 Male Self [id number] [birth year][address] MMO - MMO MED* ALISA HAGAN 1950 Male Self [id number] [birth year] [id number] [address] April 05, 2023 Standing PSG Orders signed in the last 90 days None Future PSG Orders signed in the last 90 days Ordered Auth. provider POLYSOMNOGRAM (PSG) [[id number]] 02/28/23 Niharika Frias MD Assoc. diagnoses: EZIO (obstructive sleep apnea) [G47.33] Q: Indications - Select All That Apply: A: Obstructive sleep apnea Q: STOP-BANG conditions - Select All That Apply: A: GENDER = male A2: BMI > 35 kg/m2 A3: AGE > 50 A4: high blood PRESSURE Q: Comorbidities: A: Moderate/Severe Pulmonary disease Q: Specify Pulmonary Disease: A: Pulmonary hypertension Q: Is the patient non-ambulatory or will they be accompanied by a caregiver?: A: No Q: Current use of supplemental oxygen during sleep period?: A: No Q: Add supplemental oxygen if needed per sleep lab policy?: A: Yes Q: Is this a repeat Sleep Study?: A: Yes Q: Select the indication for the repeat Sleep Study.: A: Continuing or worsening symptoms Comment: REcommend split night study if appplicable All Prior Sleep Studies (past 365 days) Some values may be hidden. Unless noted otherwise, only the newest values recorded on each date aredisplayed. 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 Hyperlipidemia 07/08/2017 LBBB (left bundle branch block) 07/08/2017 Orthostasis Other acute embolism veins 11/2008 left leg Other pulmonary embolism and infarction 1998 Other specified disorder of gallbladder Pulmonary HTN (HCC) Recurrent pulmonary emboli (HCC) Renal mass, right S/p nephrectomy S/P Difficult robotic radical nephrectomy on the right Sinus pause SOB (shortness of breath) 07/08/2017 The medical record was reviewed to determine if the proposed sleep study conforms to the [facility] Practice Parameters for the Indications for Polysomnography and Related Procedures, or if the sleep studyis indicated for other reasons. Indications for study: Pulmonary hypertension Sleep study to be performed: Split Study-Polysomnogram with PAP titration Split if AHI > 10. Special instructions: Continuing or worsening symptoms, Recommend Split Night study if applicable. Carlwally Herronon Sleep Medicine Staff Note: I have read the above protocol, edited as needed, and agree to the plan. Toni Massey MD 10:45 PM, 04/05/2023 Carl Barbosa documented in this encounterProvidence Hospital08-01-2023 Miscellaneous Notes* Telephone Encounter - Zina Toney - 03/29/2023 11:04 AM EDT Rx mail pharmacy [employer] message requesting the following refill. Requested Prescriptions Pending Prescriptions Disp Refills metoprolol succinate ER (TOPROL XL) 25 mg 24 hr tablet [Pharmacy Med Name: METOPROLOL SUCCINATE ER 25 MG Tablet Extended Release 24 Hour] 180 tablet 3 Sig: TAKE 2 TABLETS ONE TIME DAILY Patient Phone numbers: [phone] (home) [phone] (work) Request is for script(s) to be escript to pharmacy. Zina Toney documented in this encounterProvidence Hospital07-03-2023 History of Present illness Narrative* Niharika Frias MD - 02/28/2023 3:36 PM EDT Images from the original note were not included. Patient Name: Alisa Hagan PRIMARY CARE PHYSICIAN: Smitha Ray IV, DO Date of visit: February 28, 2023 COMMUNICATION WILL BE SENT VIA SHARED MEDICAL RECORDS OR US MAIL. Subjective: Alisa Hagan is a 72 year old male who is known to this clinic and presents as follow up for pulmonary hypertension, hx of PE and EZIO. Patient last seen back on 09/2022, in the interim his main complaint continues to be ongoing fatigue. In review, patient has hx of highly suspected EZIO but has been against getting sleep study in past given his personal view on EZIO and PSG. We discussed at length this visit the risks, benefits, and alternatives to PSG and subsequent CPAP treatment and all questions were answered. In addition, he has history of persistent A.Fib s/p PPM in which he believes much of his fatigue may be secondary to this. He follows with EP in which there was discussion about possible ablation, but given his recent complicated clinical course (described below), this approach was post-poned. With regards to symptoms, he continues to have some degree of exertional dyspnea, but this has beenstable compared to last visit. He denies any wheezing, chest pain, fevers, chills, or NS. Weight has been stable. He does have episodic coughing spells which appear to be predominantly productive in nature. He has associated rhinorrhea, but denies magda PND. No trials of nasal sprays in the past. ++ pedal edema. He remains compliant on lasix daily. He endorses efforts of trying to maintain low sodium diet, but on questioning does eat out about 2x/week on average. + poor sleep quality with nocturnal awakenings and nocturia. No other active complaints at this time. 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 This has been complicated by development of R subcapsular hematoma with hemorrhageextending to R retroperitoneum and subsequent hemorrhagic shock requiring IR embolization (05/25/2022) and prolonged ICU stay. He underwent IVC filter placement on 05/20. His ASA and coumadin were discontinued at date of his second discharge. He was then re-hospitalized back on 06/16 with acute dizziness in which imaging was impressive for bilateral pulmonary embolism (while off anticoagulation) in which he underwent catheter directed thrombectomy with success. It was during this hospitalization he had robotic assisted laparoscopic R radical nephrectomy which was complicated by development of A.Fib with RVR and some blood loss anemia.He eventually was started on heparin gtt post-operatively and discharged on coumadin with follow upwith our office in outpatient setting (07/2022) Exertional dyspnea- stable Pedal edema with tigthening High sodium intake PMHx: 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 metoprolol succinate ER (TOPROL XL) 25 mg 24 hr tablet Take 2 tablets by mouth once daily. furosemide (LASIX) 40 mg tablet Take 40 mg by mouth once daily. warfarin (COUMADIN) 5 mg tablet Take 1 tablet by mouth once daily. (Patient taking differently: Take 5 mg by mouth once daily. 2mg Wed and Sat 2.5mg Sun Tue) sildenafil (REVATIO) 20 mg tablet Take 20 mg by mouth twice daily. finasteride (PROSCAR) 5 mg tablet Take 5 mg by mouth every evening. atorvastatin (LIPITOR) 80 mg tablet Take 0.5 tablets by mouth once daily. aspirin, enteric coated (ECOTRIN LOW STRENGTH) 81 mg EC tablet Take 1 tablet by mouth once daily. cholecalciferol (VITAMIN D3) 50 mcg (2,000 unit) tablet Take 2,000 Units by mouth twice daily. escitalopram 20 mg tablet Take 20 mg by mouth once daily. Allergies: Patient has no known allergies. ROS: GENERAL: (-) fevers, (-) chills, (-) night sweats, (-) nausea/vomiting, (-) weight loss, (-) weightgain HEENT: (-) runny nose, (-) sore throat, (-) post-nasal drip RESPIRATORY: As above in subjective CARDIOVASCULAR: (-) chest pain, (-) palpitations, (+) LE edema. All other 10 point ROS reviewed and negative except for that mentioned above. PHYSICAL EXAM: BP 136/88 Pulse 69 Temp (Src) 96.9 (Temporal Artery) Resp 17 Ht 5' 10 (1.78m) Wt 248 lb (112.5kg) SpO2 95% BMI 35.58 kg/(m^2). General- nad, comfortable in general appearance Eyes- eomi, perrl ENT- oropharynx clear, atraumatic Neck- supple, no obvious JVD CV- RRR, no M/G/R Resp- clear to auscultation bilaterally, diminished, no wheezes or crackles, breathing nonlabored Abd- +bs, soft, nt, nd Ext- no clubbing, cyanosis. Pedal edema noted on examination Derm- no lesions/rashes Psych- appropriate mood and affect Labs / Imaging / Diagnostic Studies: Diagnostic tests reviewed for today's visit, films/specimens were personally reviewed by me. CT Chest 09/2022 IMPRESSION: Sequela of prior granulomatous exposure. CT Flank 09/2022 IMPRESSION: 1. Status post right nephrectomy. Slight interval decrease in size of a rounded lesion in the superior right nephrectomy bed suggesting slowly resolving hematoma, however continued attention on follow-up imaging is advised. 2. Persistent though significantly decreased in size right retroperitoneal hematoma. 3. No suspect lymphadenopathy. 4. Left renal hypodense lesions are incompletely characterized in the absence of intravenous contrast material though statistically likely cysts. 5. Stable right adrenal adenoma. CT Abd/pelvis 06/2022 IMPRESSION: Prior right nephrectomy, stable appearing rounded structure within the superior aspect of the right renal fossa which could represent either residual portion of right kidney or focal hematoma. Right-sided retroperitoneal hematoma extending into and involving the right psoas muscle, slightly more prominent. A small component of high density just anterior to the right common iliac artery may represent area of recent hemorrhage, otherwise, no additional areas of hyperdensity to suggest recent hemorrhage. Resolved pneumoperitoneum, decreased subcutaneous air. CT abd/pelvis 05/2022 IMPRESSION: Grossly stable appearance of right upper pole mass. Redemonstration of hemorrhage in the right kidney, right retroperitoneum, and left wrist were obtained. The overall size and configuration is stable from outside study 06/05/2022. No contrast pooling on the delayed images to suggest active contrast extravasation. Diffuse hypoenhancement of the right renal cortex is new from 05/24/2022, which raises the concern of infarct. The right renal artery is grossly patent. Diffuse thrombosis in bilateral lower extremities, iliac veins and IVC, which extends above the IVC filter. CT Chest 05/2022 IMPRESSION: Bilateral pulmonary emboli. There is right-sided heart strain. Stable calcified mediastinal lymph nodes and calcified granulomas. CT chest 11/2018 IMPRESSION: No evidence for diffuse lung disease. Scattered granulomata. Coronary artery disease. CT chest w/ contrast 11/2016: IMPRESSION: 1. No evidence of pulmonary embolic disease. 2. Limited inspiratory volume with slight elevation of right hemidiaphragm. 3. Evidence of chronic granulomatous disease. 4. Mild irregular parenchymal densities in both lower lobes most likely related to crowded lung markings and/or dependent atelectasis. V/Q scan 08/2017: IMPRESSION: THE STUDY IS MOST CONSISTENT WITH A LOW PROBABILITY OF PULMONARY EMBOLISM. CXR 08/2017: IMPRESSION: Scattered bilateral nodules which are probably calcified granulomata. This could be confirmed with CAT scan. 6MWT 08/2017: Ambulation of 419 m w/ no desaturation on RA with exertion or at rest PFTs 09/2022 PFTs 08/2017: FVC 2.87L 62% FEV1 2.22L 64% FEV1/FVC 77% TLC 5.47L 78% DlCO 68%-->91% WENDY 08/2022 CONCLUSIONS: - Exam indication: Pre Cardioversion, Pre AF Ablation - The left ventricle is normal in size. Left ventricular systolic function is mildly decreased. EF = 45 5% (visual est.) - The right ventricle is normal in size. Right ventricular systolic function is low normal. - The left atrial cavity is dilated. There is no left atrial appendage thrombus. - There is mild (1+) mitral valve regurgitation. TTE 05/2022 - The left ventricle is normal in size. There is mild left ventricular hypertrophy. Left ventricular systolic function is normal. EF = 63 5% (2D biplane) Definity contrast used for endocardial border detection. Difficult to assess LV size and function due to beat to beat variability. - The right ventricle is normal in size. Right ventricular systolic function is low normal. TTE 09/2019 The left ventricle is normal in size. There is no left ventricular hypertrophy. Left ventricular systolic function is mildly decreased. EF = 49 5% (2D biplane) Definity contrast used for endocardial border detection. Grade I left ventricular diastolic dysfunction. - The right ventricle is normal in size. Right ventricular systolic function is normal. - The left atrial cavity is moderately dilated. - There are no significant valvular abnormalities. TTE 10/2018: The left ventricle is normal in size. Left ventricular systolic function is normal. Definity contrast used for endocardial border detection. Indeterminate left ventricular diastolic dysfunction due to AF. - The right ventricle is normal in size. Right ventricular systolic function is low normal. Tricuspid annular displacement is 1.7 cm. - The right atrial cavity is dilated. - There are no significant valvular abnormalities. 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 - Recommend continuation of sildenafil 20mg BID, patient again was intolerant to TID dosing in pastdue to persistent dizziness. Continue to defer any escalation at this time. - Recommend continued lasix therapy. Encourage ongoing daily weights and low salt diet - Consider repeat echo in future for ongoing surveillance. - Continue indefinite anticoagulation with coumadin. Follows with coumadin clinic - Of note, patient s/p IVC filter placement in which now that he is tolerating anticoagulation would recommend IVC filter removal. Will place referral for evaluation of IVC filter removal. - Continue efforts of exercise/weight loss as tolerated - Patient completed pulmonary rehab therapy - Continue to follow EP for ongoing management of A.Fib, defer management - Continue follow up with cardiology - The majority of this visit we discussed patients severe fatigue in which I strongly recommend evaluation AND TREATMENT of EZIO if present. Patient finally open to idea of treatment. Thus will order PSG/split night study. Return in about 6 months (around 08/31/2023). Niharika Frias MD February 28, 2023 3:37 PM documented in [facility]05-[facility]23 Miscellaneous Notes* Telephone Encounter - RT Ivan(R) - 01/04/2023 10:48 AM EDTSummary: radiation event Spoke with Mr Hagan concerning the Interventional procedure on 05-25-22. Mr Hagan stated he has had no skin reddening, dryness, flaking or peeling in the torso area. documented in this encounterProv[facility]05-02-[facility]23 History of Present illness Narrative* Deena Waggoner MD - 12/28/2022 10:45 AM EDT Alisa Haagn 1950 December 28, 2022 HPI: Alisa Hagan is a 72 year old male who presents as a hospital follow up. Mr. Hagan is a 72 year old male who presented to ER on 06/16/22 for dizziness and difficulty urinating. Of note he was recently admitted with subcapsular hematoma and retroperitoneal bleeding. Had 2 admissions for the same first 1 05/24/2022 to 06/04/2022, total of 11 days, the second 1 was from 06/05/2022 to 06/09/2022 for total duration of 4 days. He has a known history of right renal mass for which she was supposed to undergo robotic right laparoscopic nephrectomy on 06/03/2022. CT abdomen done during the first admission showed large right subcapsular hematoma with area of extravasation from rightrenal mass with hemorrhage extending inferiorly through the right retroperitoneum. His INR was 1.2 at presentation transferred to MICU for hemorrhagic shock. Had a hemoglobin drop from 13.4-7.6. Underwent IR embolization on 05/25/2022. Aspirin and Coumadin were restarted after consultation with urologist. He also underwent IVC placement on 05/20/2022 by vascular considering his history of multiple unprovoked DVTs and PEs. His first episode was about 25 years back treated with therapeutic anticoagulation and taken off anticoagulation after 6 months. He then had a recurrence in 2009 after being off of coumadin for a month per Dr. Zabala's notes. Urology was on consult during his second admission. His aspirin and warfarin was stopped at the time of second discharge. Per IR notes from 06/16/22: Right common femoral vein was accessed. Initial femoral venography showed occlusive thrombus of the infrarenal IVC and proximal right common femoral vein. Thrombectomy of right common femoral vein and IVC performed without incident. Bilateral pulmonary angiogram performed, showing filling defects in segmental pulmonary arteries bilaterally and central filling defect in the left main pulmonary artery. Left pulmonary artery mechanical thrombectomy performed without incident. Pre-thrombectomy pulmonary artery pressure was measured as a mean of 34mmHg. Post thrombectomy pulmonary artery pressure measured a mean of 33mmHg. On review of chart, pt was seen by Heme - Dr. Zabala in . Workup at that time was negative for hypercoaguable state EXCEPT for equivocal IgM cardiolipin Abs. 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 He did not have PAI1 testing. He was on hep gtt. He was having his INR checked with PCP. Says that he was doing well on Coumadin and very stable INR. Says the pain in the R flank started in December and was bad enough that it brought him to his knees. Saw outside urology and ultimately says he was not happy with care so he switched. Pt is concerned this morning that urology resident told him he was not going back on blood thinners. In Afib on monitor. No active bleeding. Interval history: Today he is here for follow up. Had the biopsy and it was very sore. Back on coumadin. INR 2 on Tuesday. Never did the Lovenox post biopsy just went back on Coumadin. Would have cost him $300 for the Lovenox. Got lots of bruises with lovenox shots. No bleeding. +Abd pain. R midline to the R of umbilicus. Pain there but mri was negative. No SOB, CP. Sees Dr. 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 on chronic Coumadin,managed by pcp Hyperlipidemia 07/08/2017 LBBB (left bundle branch block) 07/08/2017 Orthostasis Other acute embolism veins 11/2008 left leg Other pulmonary embolism and infarction 1998 Other specified disorder of gallbladder Pulmonary HTN (HCC) Recurrent pulmonary emboli (HCC) Renal mass, right S/p nephrectomy S/P Difficult robotic radical nephrectomy on the right Sinus pause SOB (shortness of breath) 07/08/2017 PAST SURGICAL HISTORY Procedure Laterality Date CARDIOVERSION 09/12/2020 Successful conversion from atrial fibrillation to atrial paced rhythm, by Dr. Horan at [facility] CARDIOVERSION 02/04/2021 Successful conversion from atrial fibrillation to sinus rhythm, by Dr. Horan at [facility] CC PCI CORONARY INTERVENT 2018 CT ANGIOGRAPHY CHEST 11/30/2016 w/contrast ECHO TRANSESOPHAG CONGEN PROBE [facility] I&R 01/02/2021 EF 55%, +LAKSHMI thrombus, +PFO ECHO TRANSESOPHAG CONGEN PROBE [facility] I&R 02/04/2021 EF 50%, mildly dilated RV, moderately dilated LA, no LAKSHMI thrombus, no PFO ECHOCARDIOGRAM 01/04/2006 [facility] EKG 12 LEAD 04/23/2011 [facility] EVENT MONITOR 07/08/2017 24 hour LAPS SURG CHOLECYSTECTOMY W/CHOLANGIOGRAPHY 04/21/2009 PACEMAKER IMPLANT Left 07/22/2020 Dual chamber, [employer], MRI compatible 6 weeks after implantm by Dr. Horan at [facility] PAST SURGICAL HISTORY OF Right kidney removal May 2022 STRESS TEST 03/11/2006 [facility] WENDY (TRANSESOPHAGEAL ECHO) 11/30/2016 [facility] DO TONSILLECTOMY PRIMARY/SECONDARY AGE 14/> Current Outpatient Medications Medication Sig Dispense Refill enoxaparin sodium (LOVENOX SUBCUTANEOUS) Inject 10 mg subcutaneously. metoprolol succinate ER (TOPROL XL) 25 mg 24 hr tablet Take 2 tablets by mouth once daily. 60 tablet 5 furosemide (LASIX) 40 mg tablet Take 40 mg by mouth once daily. warfarin (COUMADIN) 5 mg tablet Take 1 tablet by mouth once daily. (Patient taking differently: Take 5 mg by mouth once daily. 2mg Wed and Sat 2.5mg Sun Tue) 30 tablet 0 sildenafil (REVATIO) 20 mg tablet Take 20 mg by mouth twice daily. finasteride (PROSCAR) 5 mg tablet Take 5 mg by mouth every evening. atorvastatin (LIPITOR) 80 mg tablet Take 0.5 tablets by mouth once daily. 90 tablet 3 aspirin, enteric coated (ECOTRIN LOW STRENGTH) 81 mg EC tablet Take 1 tablet by mouth once daily. cholecalciferol (VITAMIN D3) 50 mcg (2,000 unit) tablet Take 2,000 Units by mouth twice daily. escitalopram 20 mg tablet Take 20 mg by mouth once daily. No current facility-administered medications for this visit. ALLERGIES No Known Allergies FAMILY HISTORY Problem Relation Age of Onset Arthritis Mother Cancer Mother Blood Disease Father clotting factor Diabetes Father Seizures Father Blood Disease Sister clotting factor DVT Sister Blood Disease Brother clotting ffactor DVT Brother Social History Tobacco Use Smoking status: Never Smokeless tobacco: Never Vaping Use Vaping Use: Never used Substance Use Topics Alcohol use: No Drug use: No I have reviewed the PMHx, PSHx, social history and ROS on December 28, 2022 - all new information noted. Review of Systems: Constitutional: No fevers, chills, drenching night sweats or unintentional weight loss. HEENT: No yellowing of the eyes, no vision changes, no hearing loss or ear pain, no nosebleeds or drainage, no sore throat. Neck: No complaints. Chest: No SOB or cough, no ESTRADA, no hemoptysis, no wheezing. Breast: No complaints. Heart: No chest pain, pressure or tightness. No racing heartbeat. Abdominal: No pain or difficulty with swallowing, no N/V, no early satiety, no abdominal pain or bloating, no diarrhea or constipation, no change in bowel habits, no blood in the urine. +Sore s/p kidney biopsy. Genitourinary: No pain or burning with urination, no incontinence, no blood in the urine. Extremities: no pain or swelling. Neurological: No headaches, no numbness or tingling in the extremities, no double vision. Skin: No rashes or ulcerations, no change in pigmentation. Nodes: no enlargement per patient. Heme: No easy bruising or bleeding, no yellowing of the eyes or darkening of urine. Psychiatric: no anxiety or depression. Immunologic: No recurrent or persistent infections of the sinuses, lungs or urinary tract. Endocrine: No hair or nail changes, no polyuria, polydipsia, or polyphagia. Appetite normal. I have performed the physical exam on December 28, 2022 - all new findings noted below. Physical Exam: BP 119/73[right arm[ Pulse 91 Temp 96.8 Ht 5' 10 (1.78m) Wt 253 lb (114.8kg) SpO2 96% BMI 36.30 kg/(m^2). ECOG PS: 0 Pain Intensity: 2/10 General: Age-appropriate well developed. Appears well. HEENT: Normocephalic, no sclera icterus, external ears normal, oral cavity clear. Neck: Supple, no thyroid nodules, no JVD. Chest: Clear bilaterally, no wheezes, not labored. Heart: Normal S1 and S2, no abnormal sounds, peripheral pulses synchronized. +Afib but rate controlled. Abdomen: Soft, nontender, nondistended, bowel sounds present, no organomegaly or mass, no rigidity.Sore post kidney biopsy. /Rectal: deferred Extremities: No cyanosis, clubbing, gross deformities, or palpable cords. Neurological: Cranial nerves II through XII are intact bilaterally, strength normal in the upper and lower extremities, no focal deficits. Skin: Warm and dry with no rashes or ulcerations. Nodes: No palpable adenopathy in the cervical, supraclavicular, infraclavicular, or axillary regions. Hematologic: no bruising or petechiae. Psychiatric: Alert and oriented x3. Emotional well-being assessment was performed. Pt denies depression, distress, and or problems with coping or adjustment. Labs CBC:No results for input(s): WBC, HB, HCT, PLT, MCV, RDWCV, NEUTP, ABSNEUT, LYMPHP, MONOP, EODINP in the last 168 hours. COAG: No results for input(s): APTT, INR in the last 168 hours. BMP: No results for input(s): GLUC, NA, K, CHLOR, CO2, ANION, BUN, CREAT in the last 168 hours. CHEM: No results for input(s): ALB, TPROT, CA, MG in the last 168 hours. Radiology: CT c/a/p 02/22/22: Stable appearance of multiple calcified granulomata throughout both lungs. Stableappearance of the chest compared to prior exam. 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 3.7 CM RIGHT INTERPOLAR RENAL NEOPLASM. NO LYMPHADENOPATHY OR DEFINITE RENAL VEIN THROMBUS IDENTIFIED ON THIS SINGLE PHASE EXAM. IF NOT ALREADY PERFORMED, UROLOGIC CONSULTATION IS REC OMMENDED. 2 CM RIGHT ADRENAL ADENOMA. CT a/p 05/24/22: Interval development of large right subcapsular hematoma with areas of active extravasation suspected to be from the known right renal mass. Hemorrhage extends inferiorly throughout the right retroperitoneum. Interval placement of inferior vena cava filter. The inferior vena cava isdisplaced and compressed by right retroperitoneal hemorrhage. VQ 06/07/22: LOW probability VQ scan. If there is a discordant clinical likelihood of thromboembolic disease, additional evaluation with lower extremity venous Dopplers and/or contrast-enhanced PE protocol chest CT may be performed. CT c/a/p 06/16/22: Bilateral pulmonary emboli. There is right-sided heart strain. Stable calcified mediastinal lymph nodes and calcified granulomas. Grossly stable appearance of right upper pole mass. Redemonstration of hemorrhage in the right kidney, right retroperitoneum, and left wrist were obtained. The overall size and configuration is stable from outside study 06/05/2022. No contrast pooling on the delayed images to suggest active contrast extravasation. Diffuse hypoenhancement of the rightrenal cortex is new from 05/24/2022, which raises the concern of infarct. The right renal artery is grossly patent. Diffuse thrombosis in bilateral lower extremities, iliac veins and IVC, which extends above the IVC filter. IR Procedure 06/17/22: Venography from the right common femoral vein showing thrombus within the proximal right common femoral vein and infrarenal IVC. Technically successful mechanical thrombectomy of right common femoral vein and infrarenal IVC as described above. Angiography of the pulmonary arteries demonstrates chronic appearing filling defect in the posterior basal segment of the right lower lobar pulmonary artery and central filling defect in the left main pulmonary artery extending intothe upper and lower lobar branches compatible with pulmonary emboli. Technically successful mechanical thrombectomy of left pulmonary arteries as described above. US BLEs 06/17/22: Positive for extensive occlusive left lower extremity superficial and deep venousthrombosis. No definite evidence of right lower extremity venous thrombosis. Pathology: Soft tissue biopsy of the R renal fossa 12/13/22: Soft tissue mass of right renal fossa, core biopsy: - Benign renal tissue with chronic pyelonephritis and globally sclerotic glomeruli. Assessment and Plan: 1) Bilateral PEs without heart strain - noted on CT chest 06/16/22. - due to being off of OAC for R renal hematoma. - restarted back on Coumadin in 06/2022 after admission. - Dr. Ray checking INR. 2) LLE DVT - very extensive 3) Presence of IVC filter - s/p thrombectomy of pulmonary and abd vessels in IR on 06/16/22 due to stent occlusion and clots. 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 - recommend pt goes back on coumadin and will need to stay on this lifelong. - reviewed with pt. 5) R renal mass the hematoma - urology following him. - needs surgery at some point but per notes, recommending surgery in about 3-4 mo to try and save kidney. - biopsy noted to show chronic pyelonephritis and sclerotic glomeruli on exam and biopsy. 6) Afib - rate controlled. I reviewed the above with the patient. Ideally he cannot be without any anticoagulation unless massively bleeding or life threatening. IVC filter will need to remain given it is clogged with clot despite thrombectomy. Will follow. The patient was able to ask questions and all were answered to his satisfaction. I will see him back in 6 mo. He will call if he is in need of any surgeries or procedures. Parts of the HPI, ROS, exam and impression/plan may have been copied from my personal previous clinical note and remain pertinent. Current changes have been made and documented today. Other parts or data were deleted if not relevant for today. The documentation has been reviewed and edited as necessary to support the clinical decision makingfor today's visit. Deena Waggoner MD documented in this encounterProv[facility]04-26-2023 Miscellaneous Notes* Telephone Encounter - Trey Mari Pss - 12/22/2022 8:30 AM EDT Spoke to Audrey in scheduling - she took all the information and will send it to MRI team for approval They will call PT for th MRi scheduling after the approval Thanks documented in this encounterProvidence Hospital04-25-2023 History of Present illness Narrative* Danielle Fonseca, - 12/21/2022 1:33 PM EDT Images from the original note were not included. [facility]OLOG[facility] LOCATION: [address] [place] [address] ESTABLISHED PATIENT PATIENT INFO: Alisa Hagan 72 year old Chief Complaint: RIGHT RENAL CELL CANCER HPI Here after renal bed biopsy. Some pain afterwards that is improving . PREVIOUS HX: Hospital records reviewed. Prolonged stay S/P right robotic radical nephrectomy - 06/21/22 Last Cr: 1.89 1-Duration: 2022 2-Location: kidney 3-Severity: N/A 4-Quality: Not applicable 5-Context: N/A 6-Timing: N/A 7-Modifying factors: No treatment prior to referral 8-Associated signs & symptoms: no additional symptoms PATHOLOGY: FINAL DIAGNOSIS A. 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 - Tumor size: 4.5 cm in greatest dimension. - Margins negative for tumor. - Non-neoplastic kidney with multiple arterial organizing thrombi and diffuse areas of ischemic necrosis. - Perirenal hematoma and organizing fat necrosis. SURGICAL PATHOLOGY: [id number] Order: [id number] Collected 12/13/2022 9:03 AM Status: Final result Visible to patient: Yes (not seen) 1 Result Note 1 Patient Communication 1 Follow-up Encounter Component FINAL DIAGNOSIS A. Soft tissue mass of right renal fossa, core biopsy: - Benign renal tissue with chronic pyelonephritis and globally sclerotic glomeruli. : WBC (k/uL) Date Value 12/13/2022 7.62 RBC (m/uL) Date Value 12/13/2022 4.94 Hemoglobin (g/dL) Date Value 12/13/2022 14.4 Hematocrit (%) Date Value 12/13/2022 43.8 MCV (fL) Date Value 12/13/2022 88.7 MCH (pg) Date Value 12/13/2022 29.1 MCHC (g/dL) Date Value 12/13/2022 32.9 RDW-CV (%) Date Value 12/13/2022 15.2 (H) Platelet Count (k/uL) Date Value 12/13/2022 181 MPV (fL) Date Value 12/13/2022 9.5 Neutrophils % (%) Date Value 08/17/2022 70.1 Lymphocytes % (%) Date Value 08/17/2022 18.9 Monocytes % (%) Date Value 08/17/2022 8.7 Basophils % (%) Date Value 08/17/2022 0.4 Abs Neut (k/uL) Date Value 08/17/2022 5.18 Abs Hood (k/uL) Date Value 08/17/2022 0.64 Abs Eosin (k/uL) Date Value 08/17/2022 0.11 Abs Baso (k/uL) Date Value 08/17/2022 0.03 Creatinine Date Value Ref Range Status 09/07/2022 1.89 (H) 0.73 - 1.22 mg/dL Final 08/17/2022 1.80 (H) 0.73 - 1.22 mg/dL Final 07/08/2022 1.99 (H) 0.73 - 1.22 mg/dL Final 07/06/2022 2.22 (H) 0.73 - 1.22 mg/dL Final URINE POC No results found for this basename: uglucpoc,ubilipoc,uketonpoc,usgpoc,uhbpoc,uphpoc,upropoc,uuropoc ,unitpoc,uwbcpoc,ucolpoc,uclarpoc IMAGING: CT FLANK WO IVCON (Order [id number]) Patient Info Patient Name Sex Alisa Acevedo ([id number]) Male 1950 10/04/2022 4:37 PM - Radiology, Oru In Impression IMPRESSION: 1. Status post right nephrectomy. Slight interval decrease in size of a rounded lesion in the superior right nephrectomy bed suggesting slowly resolving hematoma, however continued attention on follow-up imaging is advised. 2. Persistent though significantly decreased in size right retroperitoneal hematoma. 3. No suspect lymphadenopathy. 4. Left renal hypodense lesions are incompletely characterized in the absence of intravenous contrast material though statistically likely cysts. 5. Stable right adrenal adenoma. MRI ABDOMEN WO/W IVCON (Order [id number]) Patient Info Patient Name Sex Alisa Acevedo ([id number]) Male 1950 11/10/2022 3:10 PM - Radiology, Oru In Impression IMPRESSION: Enhancing lesion in the renal bed could represent residual renal parenchymal tissue or neoplasm. There is adjacent hematoma. Right adrenal adenoma. Left renal cysts Patient Accounts Specialist: MURTAZA Transcribe Date/Time: Nov 10 2022 2:19P Dictated by : DEREK POTTER MD This examination was interpreted and the report reviewed and electronically signed by: DEREK POTTER MD on Nov 10 2022 3:08PM EST ALLERGIES: ALLERGIES No Known Allergies MEDICATIONS: enoxaparin sodium (LOVENOX SUBCUTANEOUS) Inject 10 mg subcutaneously. metoprolol succinate ER (TOPROL XL) 25 mg 24 hr tablet Take 2 tablets by mouth once daily. furosemide (LASIX) 40 mg tablet Take 40 mg by mouth once daily. warfarin (COUMADIN) 5 mg tablet Take 1 tablet by mouth once daily. (Patient taking differently: Take 5 mg by mouth once daily. 2mg Wed and Sat 2.5mg Sun Tue) sildenafil (REVATIO) 20 mg tablet Take 20 mg by mouth twice daily. finasteride (PROSCAR) 5 mg tablet Take 5 mg by mouth every evening. atorvastatin (LIPITOR) 80 mg tablet Take 0.5 tablets by mouth once daily. aspirin, enteric coated (ECOTRIN LOW STRENGTH) 81 mg EC tablet Take 1 tablet by mouth once daily. cholecalciferol (VITAMIN D3) 50 mcg (2,000 unit) tablet Take 2,000 Units by mouth twice daily. escitalopram 20 mg tablet Take 20 mg by mouth once daily. 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 HEAD & NECK: No blurred vision or Sjogren's syndrome CARDIOVASCULAR: NO CHEST PAIN, PALPITATIONS, ANKLE EDEMA RESPIRATORY: No chronic cough, wheezing, dyspnea, hemoptysis. MUSCULOSKELETAL: NO CHRONIC BACK PAIN, ARTHRITIS, CHRONIC NECK PAIN SKIN: NO VARICOSE VEINS, RASH, ABNORMAL ITCHING BLOOD/LYMPHATIC: No easy bleeding, easy bruising, transfusion Hx NEUROLOGICAL: NO HEADACHES, NUMBNESS, SEIZURES, STROKE PSYCHIATRIC: No depression or inordinate anxiety The remainder of the ROS was negative. PHYSICAL EXAMINATION Resp 16 Ht 177.8 cm (5' 10) Wt 113.4 kg (250 lb) BMI 35.87 kg/m General appearance: Well appearing, alert, in no acute distress, and well- hydrated, well nourished Skin: Skin color, texture, turgor normal, no suspicious rashes or lesions Head: Normocephalic, no masses, lesions, tenderness or abnormalities Abdomen: Normal abdominal exam, Abdomen soft, non-tender. Bowel sounds normal. No masses, organomegaly Genitourinary: MALE EXAM: Incisions CDI PVR: 0 cc IMPRESSION/PLAN: RCC - 4.5 cm tumor - Grade 3 with negative margin S/P Difficult robotic radical nephrectomy on the right - 06/21/2022. Post op hematoma developed, slow recovery. MRI abdomen 11/10/22 with decreasing hematoma and possible small recurrent mass in the renal bed S/P renal bed biopsy - 12/13/22 - normal renal tissue found. No malignancy. Proceed to MRI abdomen in 6 months. UA and PVR next visit. I spent 30 minutes in the visit, with more than 50% of the total [id number] time of the visit in counseling / coordination of care. Danielle Fonseca DO MBA documented in this encounterProvidence Hospital04-24-2023 Miscellaneous Notes* Telephone Encounter - Parisa Ledezma - 12/20/2022 1:17 PM EDT Pt coming in tomorrow (12/21) to discuss next steps. Giana * Telephone Encounter - Unruly Can Ma - 12/20/2022 12:55 PM EDT ----- Message from Danielle Fonseca DO sent at 12/20/2022 11:04 AM EDT ----- Needs appt with me to discuss next steps documented in this encounterProvidence Hospital04-17-2023 Miscellaneous Notes* Sedation Documentation - Roxana Tadeo RN - 12/13/2022 9:01 AM EDT Patient rolled from CT table to locked cart with 2 staff guard assist. * Patient Education - Roxana Tadeo RN - 12/13/2022 8:23 AM EDT Patient instructed to start Coumadin and Lovenox in the morning per Dr. Callahan. Patient instructed to call physician to find out how long he should do Lovenox and Coumadin together. Instructions written on discharge instructions. * Sedation Documentation - Roxana Tadeo RN - 12/13/2022 8:22 AM EDT Patient took last dose of Coumadin on 12/07/22, asa 81mg today, and Lovenox 12/13 1999. 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 documented in this encounterProvidence Hospital04-17-2023 Surgical operation note* Brief Op Note - Derek Callahan MD - 12/13/2022 8:56 AM EDT INTERVENTIONAL RADIOLOGY POST PROCEDURE NOTE DATE: 12/13/22 NAME: Alisa Hagan LOG ID: [id number] Pre-Procedure Diagnosis: Right renal fossa mass Post Procedure Diagnosis: Same. Foundry Finisher: Dr. Derek Callahan (Primary) Procedure: Biopsy Anesthesia: moderate sedation Findings: CT guided biopsy of right renal fossa mass. Estimated Blood Loss: Minimal (Less Than 25 mL). 0 ml Specimen: surgical pathology . Complications: None. Full report with procedural details to follow and will become available under Imaging Reports. Please contact for any questions or concerns. documented in this encounterProvidence Hospital04-17-2023 History and physical note * Derek Callahan MD - 12/13/2022 8:32 AM EDT HISTORY AND PHYSICAL EXAMINATION SERVICE DATE: 12/13/2022 SERVICE TIME: 0833 hrs PRIMARY CARE PHYSICIAN: Smitha Ray IV , Subjective PT with history of right renal cell carcinoma and right nephrectomy with residual enhancing tissue in the renal fossa. The history is provided by the patient. 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 Horan at [facility] CARDIOVERSION 02/04/2021 Successful conversion from atrial fibrillation to sinus rhythm, by Dr. Horan at [facility] CC PCI CORONARY INTERVENT 2019 CT ANGIOGRAPHY CHEST 11/30/2016 w/contrast ECHO TRANSESOPHAG CONGEN PROBE [facility] I&R 01/02/2021 EF 55%, +LAKSHMI thrombus, +PFO [facility] EF 50%, mildly dilated RV, moderately dilated LA, no LAKSHMI thrombus, no PFO ECHOCARDIOGRAM 01/04/2006 [facility] EKG 12 LEAD 04/23/2011 [facility] EVENT MONITOR 07/08/2017 24 hour LAPS SURG CHOLECYSTECTOMY W/CHOLANGIOGRAPHY 04/21/2009 PACEMAKER IMPLANT Left 07/22/2020 Dual chamber, [employer], MRI compatible 6 weeks after implantm by Dr. Horan at [facility] PAST SURGICAL HISTORY OF Right kidney removal May 2022 STRESS TEST 03/11/2006 [facility] WENDY (TRANSESOPHAGEAL ECHO) 11/30/2016 [facility]Payton Hastings DO TONSILLECTOMY PRIMARY/SECONDARY AGE 12/> FAMILY HISTORY Problem Relation Age of Onset Arthritis Mother Cancer Mother Blood Disease Father clotting factor Diabetes Father Seizures Father Blood Disease Sister clotting factor DVT Sister Blood Disease Brother clotting ffactor DVT Brother Social History Tobacco Use Smoking status: Never Smokeless tobacco: Never Vaping Use Vaping Use: Never used Substance Use Topics Alcohol use: No Drug use: No enoxaparin sodium (LOVENOX SUBCUTANEOUS), Inject 10 mg subcutaneously., Disp: , Rfl: , 12/13/2022 furosemide (LASIX) 40 mg tablet, Take 40 mg by mouth once daily., Disp: , Rfl: , 12/12/2022 sildenafil (REVATIO) 20 mg tablet, Take 20 mg by mouth twice daily., Disp: , Rfl: atorvastatin (LIPITOR) 80 mg tablet, Take 0.5 tablets by mouth once daily., Disp: 90 tablet, Rfl: 3, 12/13/2022 aspirin, enteric coated (ECOTRIN LOW STRENGTH) 81 mg EC tablet, Take 1 tablet by mouth once daily.,Disp: , Rfl: , 12/13/2022 cholecalciferol (VITAMIN D3) 50 mcg (2,000 unit) tablet, Take 2,000 Units by mouth twice daily. , Disp: , Rfl: , 12/13/2022 escitalopram 20 mg tablet, Take 20 mg by mouth once daily., Disp: , Rfl: , 12/13/2022 metoprolol succinate ER (TOPROL XL) 25 mg 24 hr tablet, Take 2 tablets by mouth once daily., Disp: 60 tablet, Rfl: 5 warfarin (COUMADIN) 5 mg tablet, Take 1 tablet by mouth once daily. (Patient taking differently: Take 5 mg by mouth once daily. 2mg Tue and Sat 2.5mg Sun Tue), Disp: 30 tablet, Rfl: 0,12/08/2022 finasteride (PROSCAR) 5 mg tablet, Take 5 mg by mouth every evening., Disp: , Rfl: ALLERGIES No Known Allergies COMPLETE REVIEW OF SYSTEMS: Review of Systems All other systems reviewed and are negative. Objective PHYSICAL EXAM: Physical Exam HENT: Mouth/Throat: Mouth: Mucous membranes are moist. Cardiovascular: Rate and Rhythm: Normal rate. Rhythm irregular. Pulses: Normal pulses. Heart sounds: Normal heart sounds. Pulmonary: Effort: Pulmonary effort is normal. Breath sounds: Normal breath sounds. Abdominal: General: Abdomen is flat. Bowel sounds are normal. Palpations: Abdomen is soft. BP 123/97 SpO2 97% There is no height or weight on file to calculate BMI. DATA: Diagnostic tests reviewed for today's visit: Most recent labs and imaging results. Assessment/Plan Right renal fossa mass- plan for CT guided biopsy. SIGNATURE: Derek Callahan MD PATIENT NAME: Alisa Hagan DATE: December 13, 2022 TIME: 8:32 AM documented in this encounterProvidence Hospital04-17-2023 Nurse Note* Roxana Tadeo RN - 12/13/2022 7:56 AM EDT CAMMY Chris received phone call from lab to have blue top tube re-drawn since it wasn't full. Dot notified POD to re-draw. Dr. Callahan notified of delay. documented in this encounterProvidence Hospital04-04-2023 Instructions* Patient Instructions* Deena Waggoner MD - 11/30/2022 12:08 PM EDT For the biopsy: Stop Coumadin 5 days prior. Start the Lovenox the same day - shot is twice a day. Last injection of Lovenox will be the night before the biopsy. Restart Lovenox after the biopsy provided no complications from biopsy. Restart Coumadin 24 hrs after restarting Lovenox documented in this encounterProvidence Hospital04-04-2023 History of Present illness Narrative* Deena Waggoner MD - 11/30/2022 11:30 AM EDT Alisa Hagan 1950 November 30, 2022 HPI: Alisa Hagan is a 72 year old male who presents as a hospital follow up. Mr. Hagan is a 72 year old male who presented to ER on 06/16/22 for dizziness and difficulty urinating. Of note he was recently admitted with subcapsular hematoma and retroperitoneal bleeding. Had 2 admissions for the same first 1 05/24/2022 to 06/04/2022, total of 11 days, the second 1 was from 06/05/2022 to 06/09/2022 for total duration of 4 days. He has a known history of right renal mass for which she was supposed to undergo robotic right laparoscopic nephrectomy on 06/03/2022. CT abdomen done during the first admission showed large right subcapsular hematoma with area of extravasation from rightrenal mass with hemorrhage extending inferiorly through the right retroperitoneum. His INR was 1.2 at presentation transferred to MICU for hemorrhagic shock. Had a hemoglobin drop from 13.4-7.6. Underwent IR embolization on 05/25/2022. Aspirin and Coumadin were restarted after consultation with urologist. He also underwent IVC placement on 05/20/2022 by vascular considering his history of multiple unprovoked DVTs and PEs. His first episode was about 25 years back treated with therapeutic anticoagulation and taken off anticoagulation after 6 months. He then had a recurrence in 2009 after being off of coumadin for a month per Dr. Zabala's notes. Urology was on consult during his second admission. His aspirin and warfarin was stopped at the time of second discharge. Per IR notes from 06/16/22: Right common femoral vein was accessed. Initial femoral venography showed occlusive thrombus of the infrarenal IVC and proximal right common femoral vein. Thrombectomy of right common femoral vein and IVC performed without incident. Bilateral pulmonary angiogram performed, showing filling defects in segmental pulmonary arteries bilaterally and central filling defect in the left main pulmonary artery. Left pulmonary artery mechanical thrombectomy performed without incident. Pre-thrombectomy pulmonary artery pressure was measured as a mean of 34mmHg. Post thrombectomy pulmonary artery pressure measured a mean of 33mmHg. On review of chart, pt was seen by [facility] - Dr. Zabala in . Workup at that time was negative for hypercoaguable state EXCEPT for equivocal IgM cardiolipin Abs. 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 He did not have PAI1 testing. Today he is resting in bed. He is currently on hep gtt. He was having his INR checked with PCP. Says that he was doing well on Coumadin and very stable INR. Says the pain in the R flank started in December and was bad enough that it brought him to his knees. Saw outside urology and ultimately says he was not happy with care so he switched. Pt is concerned this morning that urology resident told him he was not going back on blood thinners. In Afib on monitor. No active bleeding. Interval history: Today he is here for follow up. INR yesterday 2.5. CT biopsy in IR but hasn't heard anything yet. No bleeding. +Abd pain. R midline to the R of umbilicus. Pain there but mri was negative. No SOB, CP. Sees Dr. Ray Missed a week in June post d/c of the Coumadin as pills weren't in box. 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 Horan at [facility] CARDIOVERSION 02/04/2021 Successful conversion from atrial fibrillation to sinus rhythm, by Dr. Horan at [facility] CC PCI CORONARY INTERVENT 2018 CT ANGIOGRAPHY CHEST 11/30/2016 w/contrast ECHO TRANSESOPHAG CONGEN PROBE [facility] I&R 01/02/2021 EF 55%, +LAKSHMI thrombus, +PFO ECHO TRANSESOPHAG CONGEN PROBE [facility] I&R 02/04/2021 EF 50%, mildly dilated RV, moderately dilated LA, no LAKSHMI thrombus, no PFO ECHOCARDIOGRAM 01/04/2006 [facility] EKG 12 LEAD 04/23/2011 [facility] EVENT MONITOR 07/08/2017 24 hour LAPS SURG CHOLECYSTECTOMY W/CHOLANGIOGRAPHY 04/21/2009 PACEMAKER IMPLANT Left 07/22/2020 Dual chamber, [employer], MRI compatible 6 weeks after implantm by Dr. Horan at [facility] PAST SURGICAL HISTORY OF Right kidney removal May 2022 STRESS TEST 03/11/2006 [facility] WENDY (TRANSESOPHAGEAL ECHO) 11/30/2016 [facility]ul/Payton Hastings DO TONSILLECTOMY PRIMARY/SECONDARY AGE 14/> Current Outpatient Medications Medication Sig Dispense Refill metoprolol succinate ER (TOPROL XL) 25 mg 24 hr tablet Take 2 tablets by mouth once daily. 60 tablet 5 furosemide (LASIX) 40 mg tablet Take 40 mg by mouth once daily. warfarin (COUMADIN) 5 mg tablet Take 1 tablet by mouth once daily. (Patient taking differently: Take 5 mg by mouth once daily. 2mg Wed and Sat 2.5mg Sun Mon Tues Thurs Fri) 30 tablet 0 sildenafil (REVATIO) 20 mg tablet Take 20 mg by mouth twice daily. finasteride (PROSCAR) 5 mg tablet Take 5 mg by mouth every evening. atorvastatin (LIPITOR) 80 mg tablet Take 0.5 tablets by mouth once daily. 90 tablet 3 aspirin, enteric coated (ECOTRIN LOW STRENGTH) 81 mg EC tablet Take 1 tablet by mouth once daily. cholecalciferol (VITAMIN D3) 50 mcg (2,000 unit) tablet Take 2,000 Units by mouth twice daily. escitalopram 20 mg tablet Take 20 mg by mouth once daily. No current facility-administered medications for this visit. ALLERGIES No Known Allergies FAMILY HISTORY Problem Relation Age of Onset Arthritis Mother Cancer Mother Blood Disease Father clotting factor Diabetes Father Seizures Father Blood Disease Sister clotting factor DVT Sister Blood Disease Brother clotting ffactor DVT Brother Social History Tobacco Use Smoking status: Never Smokeless tobacco: Never Vaping Use Vaping Use: Never used Substance Use Topics Alcohol use: No Drug use: No Review of Systems: Constitutional: No fevers, chills, drenching night sweats or unintentional weight loss. HEENT: No yellowing of the eyes, no vision changes, no hearing loss or ear pain, no nosebleeds or drainage, no sore throat. Neck: No complaints. Chest: No SOB or cough, no ESTRADA, no hemoptysis, no wheezing. Breast: No complaints. Heart: No chest pain, pressure or tightness. No racing heartbeat. Abdominal: No pain or difficulty with swallowing, no N/V, no early satiety, no abdominal pain or bloating, no diarrhea or constipation, no change in bowel habits, no blood in the urine. Genitourinary: No pain or burning with urination, no incontinence, no blood in the urine. Extremities: no pain or swelling. Neurological: No headaches, no numbness or tingling in the extremities, no double vision. Skin: No rashes or ulcerations, no change in pigmentation. Nodes: no enlargement per patient. Heme: No easy bruising or bleeding, no yellowing of the eyes or darkening of urine. Psychiatric: no anxiety or depression. Immunologic: No recurrent or persistent infections of the sinuses, lungs or urinary tract. Endocrine: No hair or nail changes, no polyuria, polydipsia, or polyphagia. Appetite normal. Physical Exam: BP 120/84[left arm[ Pulse 81 Temp 97 Ht 5' 10 (1.78m) Wt 251 lb (113.9kg) SpO2 96% BMI36.01 kg/(m^2). ECOG PS: 0 Pain Intensity: 0/10 General: Age-appropriate well developed. Appears well. HEENT: Normocephalic, no sclera icterus, external ears normal, oral cavity clear. Neck: Supple, no thyroid nodules, no JVD. Chest: Clear bilaterally, no wheezes, not labored. Heart: Normal S1 and S2, no abnormal sounds, peripheral pulses synchronized. +Afib but rate controlled. Abdomen: Soft, nontender, nondistended, bowel sounds present, no organomegaly or mass, no rigidity. /Rectal: deferred Extremities: No cyanosis, clubbing, gross deformities, or palpable cords. Neurological: Cranial nerves II through XII are intact bilaterally, strength normal in the upper and lower extremities, no focal deficits. Skin: Warm and dry with no rashes or ulcerations. Nodes: No palpable adenopathy in the cervical, supraclavicular, infraclavicular, or axillary regions. Hematologic: no bruising or petechiae. Psychiatric: Alert and oriented x3. Emotional well-being assessment was performed. Pt denies depression, distress, and or problems with coping or adjustment. Labs CBC:No results for input(s): WBC, HB, HCT, PLT, MCV, RDWCV, NEUTP, ABSNEUT, LYMPHP, MONOP, EODINP in the last 168 hours. COAG: No results for input(s): APTT, INR in the last 168 hours. BMP: No results for input(s): GLUC, NA, K, CHLOR, CO2, ANION, BUN, CREAT in the last 168 hours. CHEM: No results for input(s): ALB, TPROT, CA, MG in the last 168 hours. Radiology: CT c/a/p 02/22/22: Stable appearance of multiple calcified granulomata throughout both lungs. Stableappearance of the chest compared to prior exam. 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 3.7 CM RIGHT INTERPOLAR RENAL NEOPLASM. NO LYMPHADENOPATHY OR DEFINITE RENAL VEIN THROMBUS IDENTIFIED ON THIS SINGLE PHASE EXAM. IF NOT ALREADY PERFORMED, UROLOGIC CONSULTATION IS RECOMMENDED. 2 CM RIGHT ADRENAL ADENOMA. CT a/p 05/24/22: Interval development of large right subcapsular hematoma with areas of active extravasation suspected to be from the known right renal mass. Hemorrhage extends inferiorly throughout the right retroperitoneum. Interval placement of inferior vena cava filter. The inferior vena cava isdisplaced and compressed by right retroperitoneal hemorrhage. VQ 06/07/22: LOW probability VQ scan. If there is a discordant clinical likelihood of thromboembolic disease, additional evaluation with lower extremity venous Dopplers and/or contrast-enhanced PE protocol chest CT may be performed. CT c/a/p 06/16/22: Bilateral pulmonary emboli. There is right-sided heart strain. Stable calcified mediastinal lymph nodes and calcified granulomas. Grossly stable appearance of right upper pole mass. Redemonstration of hemorrhage in the right kidney, right retroperitoneum, and left wrist were obtained. The overall size and configuration is stable from outside study 06/05/2022. No contrast pooling on the delayed images to suggest active contrast extravasation. Diffuse hypoenhancement of the rightrenal cortex is new from 05/24/2022, which raises the concern of infarct. The right renal artery is grossly patent. Diffuse thrombosis in bilateral lower extremities, iliac veins and IVC, which extends above the IVC filter. IR Procedure 06/17/22: Venography from the right common femoral vein showing thrombus within the proximal right common femoral vein and infrarenal IVC. Technically successful mechanical thrombectomy of right common femoral vein and infrarenal IVC as described above. Angiography of the pulmonary arteries demonstrates chronic appearing filling defect in the posterior basal segment of the right lower lobar pulmonary artery and central filling defect in the left main pulmonary artery extending intothe upper and lower lobar branches compatible with pulmonary emboli. Technically successful mechanical thrombectomy of left pulmonary arteries as described above. US BLEs 06/17/22: Positive for extensive occlusive left lower extremity superficial and deep venousthrombosis. No definite evidence of right lower extremity venous thrombosis. Pathology: Assessment and Plan: 1) Bilateral PEs without heart strain - noted on CT chest 06/16/22. - due to being off of OAC for R renal hematoma. - currently on hep gtt. - will need to go back on OAC and recommend coumadin when time. 2) LLE DVT - very extensive 3) Presence of IVC filter - s/p thrombectomy of pulmonary and abd vessels in IR on 06/16/22 due to stent occlusion and clots. 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 - recommend pt goes back on coumadin and will need to stay on this lifelong. - reviewed with pt. 5) R renal mass the hematoma - urology following him. - needs surgery at some point but per notes, recommending surgery in about 3-4 mo to try and save kidney. - this tumor is likely adding to his hypercoaguable state. 6) Afib I reviewed the above with the patient. Ideally he cannot be without any anticoagulation unless massively bleeding or life threatening. IVC filter will need to remain given it is clogged with clot despite thrombectomy. Will follow. Will add in ELOINA-1 as this was not tested in 2009. I would recommend Lovenox bridge for biopsy. Discussed biopsy and need to stop Coumadin 5 days prior. The patient was able to ask questions and all were answered to his satisfaction. Parts of the HPI, ROS, exam and impression/plan may have been copied from my personal previous clinical note and remain pertinent. Current changes have been made and documented today. Other parts or data were deleted if not relevant for today. The documentation has been reviewed and edited as necessary to support the clinical decision makingfor today's visit. Deena Waggoner MD documented in this encounterProvidence Hospital04-03-2023 Miscellaneous Notes* Telephone Encounter - Jenny Weber RN - 11/29/2022 8:29 AM EDT Clearance form received from Interventional Radiology for renal biopsy. Placed in Dr. Horan door box. Jenny Weber RN documented in this encounterProvidence Hospital03-28-2023 History of Present illness Narrative* Danielle Fonseca DO - 11/23/2022 7:44 AM EDT Images from the original note were not included. [facility] LOCATION: [address] [place] [address] ESTABLISHED PATIENT PATIENT INFO: Alisa Hagan 72 year old Chief Complaint: RIGHT RENAL CELL CANCER HPI Here after MRI Abdomen. PREVIOUS HX: Hospital records reviewed. Prolonged stay S/P right robotic radical nephrectomy - 06/21/22 Last Cr: 1.89 Continues to have right abdominal pain - improving slowly. 1-Duration: 2021 2-Location: kidney 3-Severity: N/A 4-Quality: Not applicable 5-Context: N/A 6-Timing: N/A 7-Modifying factors: No treatment prior to referral 8-Associated signs & symptoms: no additional symptoms No question data found. PATHOLOGY: FINAL DIAGNOSIS A. 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 - Tumor size: 4.5 cm in greatest dimension. - Margins negative for tumor. - Non-neoplastic kidney with multiple arterial organizing thrombi and diffuse areas of ischemic necrosis. - Perirenal hematoma and organizing fat necrosis. LAB: WBC (k/uL) Date Value 09/07/2022 9.27 RBC (m/uL) Date Value 09/07/2022 5.09 Hemoglobin (g/dL) Date Value 09/07/2022 14.4 Hematocrit (%) Date Value 09/07/2022 45.8 MCV (fL) Date Value 09/07/2022 90.0 MCH (pg) Date Value 09/07/2022 28.3 MCHC (g/dL) Date Value 09/07/2022 31.4 RDW-CV (%) Date Value 09/07/2022 15.0 Platelet Count (k/uL) Date Value 09/07/2022 219 MPV (fL) Date Value 09/07/2022 9.4 Neutrophils % (%) Date Value 08/17/2022 70.1 Lymphocytes % (%) Date Value 08/17/2022 18.9 Monocytes % (%) Date Value 08/17/2022 8.7 Basophils % (%) Date Value 08/17/2022 0.4 Abs Neut (k/uL) Date Value 08/17/2022 5.18 Abs Hood (k/uL) Date Value 08/17/2022 0.64 Abs Eosin (k/uL) Date Value 08/17/2022 0.11 Abs Baso (k/uL) Date Value 08/17/2022 0.03 Creatinine Date Value Ref Range Status 09/07/2022 1.89 (H) 0.73 - 1.22 mg/dL Final 08/17/2022 1.80 (H) 0.73 - 1.22 mg/dL Final 07/08/2022 1.99 (H) 0.73 - 1.22 mg/dL Final 07/06/2022 2.22 (H) 0.73 - 1.22 mg/dL Final URINE POC No results found for this basename: uglucpoc,ubilipoc,uketonpoc,usgpoc,uhbpoc,uphpoc,upropoc,uuropoc ,unitpoc,uwbcpoc,ucolpoc,uclarpoc IMAGING: CT FLANK WO IVCON (Order [id number]) Patient Info Patient Name Sex Alisa Acevedo ([id number]) Male 1950 10/04/2022 4:37 PM - Radiology, Oru In Impression IMPRESSION: 1. Status post right nephrectomy. Slight interval decrease in size of a rounded lesion in the superior right nephrectomy bed suggesting slowly resolving hematoma, however continued attention on follow-up imaging is advised. 2. Persistent though significantly decreased in size right retroperitoneal hematoma. 3. No suspect lymphadenopathy. 4. Left renal hypodense lesions are incompletely characterized in the absence of intravenous contrast material though statistically likely cysts. 5. Stable right adrenal adenoma. MRI ABDOMEN WO/W IVCON (Order [id number]) Patient Info Patient Name Sex Alisa Acevedo ([id number]) Male 1950 11/10/2022 3:10 PM - Radiology, Oru In Impression IMPRESSION: Enhancing lesion in the renal bed could represent residual renal parenchymal tissue or neoplasm. There is adjacent hematoma. Right adrenal adenoma. Left renal cysts Patient Accounts Specialist: [facility] Transcribe Date/Time: Nov 10 2022 2:19P Dictated by : DEREK POTTER MD This examination was interpreted and the report reviewed and electronically signed by: DEREK POTTER MD on Nov 10 2022 3:08PM EST ALLERGIES: ALLERGIES No Known Allergies MEDICATIONS: metoprolol succinate ER (TOPROL XL) 25 mg 24 hr tablet Take 2 tablets by mouth once daily. furosemide (LASIX) 40 mg tablet Take 40 mg by mouth once daily. warfarin (COUMADIN) 5 mg tablet Take 1 tablet by mouth once daily. (Patient taking differently: Take 5 mg by mouth once daily. 2mg Wed and Sat 2.5mg Sun Mon Tue) sildenafil (REVATIO) 20 mg tablet Take 20 mg by mouth twice daily. finasteride (PROSCAR) 5 mg tablet Take 5 mg by mouth every evening. atorvastatin (LIPITOR) 80 mg tablet Take 0.5 tablets by mouth once daily. aspirin, enteric coated (ECOTRIN LOW STRENGTH) 81 mg EC tablet Take 1 tablet by mouth once daily. cholecalciferol (VITAMIN D3) 50 mcg (2,000 unit) tablet Take 2,000 Units by mouth twice daily. escitalopram 20 mg tablet Take 20 mg by mouth once daily. 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 HEAD & NECK: No blurred vision or Sjogren's syndrome CARDIOVASCULAR: NO CHEST PAIN, PALPITATIONS, ANKLE EDEMA RESPIRATORY: No chronic cough, wheezing, dyspnea, hemoptysis. MUSCULOSKELETAL: NO CHRONIC BACK PAIN, ARTHRITIS, CHRONIC NECK PAIN SKIN: NO VARICOSE VEINS, RASH, ABNORMAL ITCHING BLOOD/LYMPHATIC: No easy bleeding, easy bruising, transfusion Hx NEUROLOGICAL: NO HEADACHES, NUMBNESS, SEIZURES, STROKE PSYCHIATRIC: No depression or inordinate anxiety The remainder of the ROS was negative. PHYSICAL EXAMINATION Resp 18 Ht 177.8 cm (5' 10) Wt 111.1 kg (245 lb) BMI 35.15 kg/m General appearance: Well appearing, alert, in no acute distress, and well- hydrated, well nourished Skin: Skin color, texture, turgor normal, no suspicious rashes or lesions Head: Normocephalic, no masses, lesions, tenderness or abnormalities Abdomen: Normal abdominal exam, Abdomen soft, non-tender. Bowel sounds normal. No masses, organomegaly Genitourinary: MALE EXAM: Incisions CDI PVR: 0 cc IMPRESSION/PLAN: RCC - 4.5 cm tumor - Grade 3 with negative margin S/P Difficult robotic radical nephrectomy on the right Post op hematoma - some abdominal pain MRI abdomen now at 6 months with decreasing hematoma and possible small recurrent mass in the renalbed We have discussed options - renal bed biopsy or repeat MRI in 3 months Will proceed to renal bed biopsy. May need oncology evaluation if positive findings for RCC. UA and PVR next visit. I spent 30 minutes in the visit, with more than 50% of the total heko-gb-uzbp time of the visit in counseling / coordination of care. Danielle Fonseca DO MBA documented in this encounterProvidence Hospital03-27-2023 Miscellaneous Notes* Telephone Encounter - Parisa Ledezma - 11/22/2022 9:09 AM EDT Pt confirmed his appt to discuss MRI results in [facility] with Dr. Fonseca 11/23/22 @ 7:30am. Giana documented in this encounterProvidence Hospital03-15-2023 NoteHNO ID: [id number] Author: CAMMY Collins Service: Radiology Author Type: Research Editor Type: Progress Notes Filed: 11/10/2022 11:00 AM Note Text: Radiology Service Progress Note DATE OF SERVICE: November 10, 2022 TIME: 10:58 AM PATIENT IDENTITY VERIFICATION COMPLETED USING TWO (2) STANDARD IDENTIFIERS: Name and Date of confirmed by patient verbally. FALL SCREENING: Has the patient had 2 falls in the last year or 1 fall with injury or currently using an Ambulatory Assistive Device (Walker, Cane, Wheelchair, Crutches, etc.)? No PATIENT GENDER DATA: Male PATIENT RELEVANT IMPLANT DATA REVIEWED: Yes ALLERGIES: Reviewed and unchanged CONTRAST ALLERGY: NO. EXAM: MRI - CONTRAST TYPE: GROUP II PERIPHERAL IV DATA: iv started by radiology technician RADIOLOGY DEPARTMENT: MR; Exam(s) Completed: Body: Renal SIGNATURE: Gaviota KumarCAMMY PATIENT NAME: Alisa Hagan DATE: November 10, 2022 TIME: 10:58 AMMercy Health Tiffin [id number] History of Present illness Narrative* CAMMY Collins - 11/10/2022 10:40 AM EDT Radiology Service Progress Note DATE OF SERVICE: November 10, 2022 TIME: 10:58 AM PATIENT IDENTITY VERIFICATION COMPLETED USING TWO (2) STANDARD IDENTIFIERS: Name and Date of confirmed by patient verbally. FALL SCREENING: Has the patient had 2 falls in the last year or 1 fall with injury or currently using an Ambulatory Assistive Device (Walker, Cane, Wheelchair, Crutches, etc.)? No PATIENT GENDER DATA: Male PATIENT RELEVANT IMPLANT DATA REVIEWED: Yes ALLERGIES: Reviewed and unchanged CONTRAST ALLERGY: NO. EXAM: MRI - CONTRAST TYPE: GROUP II PERIPHERAL IV DATA: iv started by radiology technician RADIOLOGY DEPARTMENT: MR; Exam(s) Completed: Body: Renal SIGNATURE: Gaviota Kumar CAMMY PATIENT NAME: Alisa Hagan DATE: November 10, 2022 TIME: 10:58 AM documented in this encounterProvidence Hospital03-15-2023 Nurse Note* Terri Gonsales RN - 11/10/2022 10:40 AM EDT Radiology Service Progress Note PATIENT NAME: Alisa Hagan DATE OF SERVICE: November 10, 2022 TIME: 11:15 AM PATIENT IDENTITY VERIFICATION COMPLETED USING TWO (2) STANDARD IDENTIFIERS: Name and Date of confirmed by patient verbally. PATIENT GENDER DATA: Male PATIENT RELEVANT IMPLANT DATA REVIEWED: Yes ALLERGIES: Reviewed and unchanged MEDICATIONS REVIEWED: YES PROCEDURE: MRI - Conditional Pacemaker IV SITE: Ambulatory: A peripheral IV was started in the Right with a Angio cath: 22 gauge. PERIPHERAL IV ACCESS: Discontinued PATIENT TOLERATED PROCEDURE: Without incident. PATIENT DISCHARGED TO: Home/Self Care SIGNED BY: Terri Gonsales RN November 10, 2022 11:15 AM documented in this encounterProvidence Hospital03-08-2023 Miscellaneous Notes* Telephone Encounter - Jason Dueñas RN - 11/03/2022 4:04 PM EST Ligia from [facility] called stating that pts order auto discharged from the hospital for his MRI Abdomen. They need a new MRI Abdomen with and without ordered. New order pended but I wasn't able to add the diagnosis code you used on the previous MRI order. Can you please add diagnosis code and sign new order? Jason Dueñas RN documented in this encounterProvidence Hospital03-01-2023 NoteHNO ID: [id number] Author: KISHA Rossi) Service: Radiology Author Type: Technologist Type: Progress Notes Filed: 10/27/2022 10:57 AM Note Text: RADIOLOGY SERVICE PROGRESS NOTE DATE OF SERVICE: October 27, 2022 TIME OF SERVICE: 1049 EVENT: Pt has a pacemaker and was scheduled for MRI, [facility] was not informed of this study and there were no rep available for the scan. Informed pt to reschedule ADDITIONAL EVENT DETAILS: N/A SIGNATURE: KISHA Rossi) PATIENT NAME: Alisa Hagan DATE: October 27, 2022 TIME: 10:55 AM PAGER/CONTACT #:[facility] [id number] History of Present illness Narrative* KISHA Rossi) - 10/27/2022 10:40 AM EST RADIOLOGY SERVICE PROGRESS NOTE DATE OF SERVICE: October 27, 2022 TIME OF SERVICE: 1050 EVENT: Pt has a pacemaker and was scheduled for MRI, [facility] was not informed of this study and there were no rep available for the scan. Informed pt to reschedule ADDITIONAL EVENT DETAILS: N/A SIGNATURE: RT Flo(R) PATIENT NAME: Alisa Hagan DATE: October 27, 2022 TIME: 10:55 AM PAGER/CONTACT #: documented in this encounterProvidence Hospital02-16-2023 History of Present illness Narrative* Niharika Frias MD - 10/14/2022 9:00 AM EST Images from the original note were not included. Patient Name: Alisa Hagan PRIMARY CARE PHYSICIAN: Smitha Ray MD Date of visit: October 14, 2022 COMMUNICATION WILL BE SENT VIA SHARED MEDICAL RECORDS OR US MAIL. Subjective: Alisa Hagan is a 72 year old male who is known to this clinic and presents as follow up for pulmonary hypertension. Patient last seen by back on 10/2019, but has been following with our officeand last seen by Jesenia solis on 07/2022, in the interim patient has had a number of hospitalizationsback in 2021 (05/24- 06/04, 06/05-06/09, 06/16-06/29). In summary, from what I can gather with documentation review. 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 This has been complicated by development of R subcapsular hematoma with hemorrhage extending to R retroperitoneum and subsequent hemorrhagic shock requiring IR embolization (05/25/2022) and prolonged ICU stay. He underwent IVC filter placement on 05/20. His ASA and coumadin were discontinued at date of his second discharge. He was then re-hospitalized back on 06/16 with acute dizziness in which imaging was impressive for bilateral pulmonary embolism (while off anticoagulation) in which he underwent catheter directed thrombectomy with success. It was during this hospitalization he had robotic assisted laparoscopic R radical nephrectomy which was complicated by development of A.Fib with RVR and some blood loss anemia.He eventually was started on heparin gtt post-operatively and discharged on coumadin with follow upwith our office in outpatient setting (07/2022) At time of that visit he saw Jesenia back in which he has noted improvement in dyspnea and fatigue (though some of this is due to lifestyle changes and taking it slow). He also has lost [id number] lbs in 'water weight' with current lasix regimen. During todays visit, patient's main complaint is ongoing fatigue. Denies magda shortness of breath or exertional dyspnea. He believes some of this is related to his underlying A.Fib which has been difficult to control. He underwent CV by EP last week but this didn't take. He denies pedal edema, chest pain, fevers, chills, or NS. Denies presyncope/syncope. + ongoing poor sleep hygiene, but denies any issues with sleeping per se. Asked if he is interested in sleep study and he deferred Currently he is on coumadin and follows closely with coumadin clinic with great compliance (INR goal 2-3). Remains on sildenafil BID with great compliance. 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 warfarin (COUMADIN) 5 mg tablet Take 1 tablet by mouth once daily. (Patient taking differently: Take 5 mg by mouth once daily. 2mg Wed and Sat 2.5mg Sun Tue) sildenafil (REVATIO) 20 mg tablet Take 20 mg by mouth twice daily. finasteride (PROSCAR) 5 mg tablet Take 5 mg by mouth every evening. atorvastatin (LIPITOR) 80 mg tablet Take 0.5 tablets by mouth once daily. aspirin, enteric coated (ECOTRIN LOW STRENGTH) 81 mg EC tablet Take 1 tablet by mouth once daily. cholecalciferol (VITAMIN D3) 50 mcg (2,000 unit) tablet Take 2,000 Units by mouth twice daily. escitalopram 20 mg tablet Take 20 mg by mouth once daily. metoprolol succinate ER (TOPROL XL) 25 mg 24 hr tablet Take 2 tablets by mouth once daily. Allergies: Patient has no known allergies. ROS: GENERAL: (-) fevers, (-) chills, (-) night sweats, (-) nausea/vomiting, (-) weight loss, (-) weightgain HEENT: (-) runny nose, (-) sore throat, (-) post-nasal drip RESPIRATORY: As above in subjective CARDIOVASCULAR: (-) chest pain, (-) palpitations, (-) LE edema. All other 10 point ROS reviewed and negative except for that mentioned above. PHYSICAL EXAM: BP 126/73 Pulse 78 Temp (Src) 97.2 (Temporal) Resp 16 Ht 5' 10 (1.78m) Wt 253 lb (114.8kg) SpO2 97% BMI 36.30 kg/(m^2). General- nad, comfortable in general appearance Eyes- eomi, perrl ENT- oropharynx clear, atraumatic Neck- supple, no obvious JVD CV- RRR, no M/G/R Resp- clear to auscultation bilaterally, no wheezes or crackles, breathing nonlabored Abd- +bs, soft, nt, nd, obese, + nephrectomy scar noted on RLQ of abdomen. No erythema appreciated,surgical site C/D/I Ext- no clubbing, cyanosis, or edema Derm- no lesions/rashes Psych- appropriate mood and flat affect Labs / Imaging / Diagnostic Studies: Diagnostic tests reviewed for today's visit, films/specimens were personally reviewed by me. CT Chest 09/2022 IMPRESSION: Sequela of prior granulomatous exposure. CT Flank 09/2022 IMPRESSION: 1. Status post right nephrectomy. Slight interval decrease in size of a rounded lesion in the superior right nephrectomy bed suggesting slowly resolving hematoma, however continued attention on follow-up imaging is advised. 2. Persistent though significantly decreased in size right retroperitoneal hematoma. 3. No suspect lymphadenopathy. 4. Left renal hypodense lesions are incompletely characterized in the absence of intravenous contrast material though statistically likely cysts. 5. Stable right adrenal adenoma. CT Abd/pelvis 06/2022 IMPRESSION: Prior right nephrectomy, stable appearing rounded structure within the superior aspect of the right renal fossa which could represent either residual portion of right kidney or focal hematoma. Right-sided retroperitoneal hematoma extending into and involving the right psoas muscle, slightly more prominent. A small component of high density just anterior to the right common iliac artery may represent area of recent hemorrhage, otherwise, no additional areas of hyperdensity to suggest recent hemorrhage. Resolved pneumoperitoneum, decreased subcutaneous air. CT abd/pelvis 05/2022 IMPRESSION: Grossly stable appearance of right upper pole mass. Redemonstration of hemorrhage in the right kidney, right retroperitoneum, and left wrist were obtained. The overall size and configuration is stable from outside study 06/05/2022. No contrast pooling on the delayed images to suggest active contrast extravasation. Diffuse hypoenhancement of the right renal cortex is new from 05/24/2022, which raises the concern of infarct. The right renal artery is grossly patent. Diffuse thrombosis in bilateral lower extremities, iliac veins and IVC, which extends above the IVC filter. CT Chest 05/2022 IMPRESSION: Bilateral pulmonary emboli. There is right-sided heart strain. Stable calcified mediastinal lymph nodes and calcified granulomas. CT chest 11/2018 IMPRESSION: No evidence for diffuse lung disease. Scattered granulomata. Coronary artery disease. CT chest w/ contrast 11/2016: IMPRESSION: 1. No evidence of pulmonary embolic disease. 2. Limited inspiratory volume with slight elevation of right hemidiaphragm. 3. Evidence of chronic granulomatous disease. 4. Mild irregular parenchymal densities in both lower lobes most likely related to crowded lung markings and/or dependent atelectasis. V/Q scan 08/2017: IMPRESSION: THE STUDY IS MOST CONSISTENT WITH A LOW PROBABILITY OF PULMONARY EMBOLISM. CXR 08/2017: IMPRESSION: Scattered bilateral nodules which are probably calcified granulomata. This could be confirmed with CAT scan. 6MWT 08/2017: Ambulation of 419 m w/ no desaturation on RA with exertion or at rest PFTs 09/2022 PFTs 08/2017: FVC 2.87L 62% FEV1 2.22L 64% FEV1/FVC 77% TLC 5.47L 78% DlCO 68%-->91% WENDY 08/2022 CONCLUSIONS: - Exam indication: Pre Cardioversion, Pre AF Ablation - The left ventricle is normal in size. Left ventricular systolic function is mildly decreased. EF = 45 5% (visual est.) - The right ventricle is normal in size. Right ventricular systolic function is low normal. - The left atrial cavity is dilated. There is no left atrial appendage thrombus. - There is mild (1+) mitral valve regurgitation. TTE 05/2022 - The left ventricle is normal in size. There is mild left ventricular hypertrophy. Left ventricular systolic function is normal. EF = 63 5% (2D biplane) Definity contrast used for endocardial border detection. Difficult to assess LV size and function due to beat to beat variability. - The right ventricle is normal in size. Right ventricular systolic function is low normal. TTE 09/2019 The left ventricle is normal in size. There is no left ventricular hypertrophy. Left ventricular systolic function is mildly decreased. EF = 49 5% (2D biplane) Definity contrast used for endocardial border detection. Grade I left ventricular diastolic dysfunction. - The right ventricle is normal in size. Right ventricular systolic function is normal. - The left atrial cavity is moderately dilated. - There are no significant valvular abnormalities. TTE 10/2018: The left ventricle is normal in size. Left ventricular systolic function is normal. Definity contrast used for endocardial border detection. Indeterminate left ventricular diastolic dysfunction due to AF. - The right ventricle is normal in size. Right ventricular systolic function is low normal. Tricuspid annular displacement is 1.7 cm. - The right atrial cavity is dilated. - There are no significant valvular abnormalities. 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 - Recommend continuation of sildenafil 20mg BID, patient again was intolerant to TID dosing in pastdue to persistent dizziness. Defer any escalation at this time. - Recommend continued lasix therapy. Encourage ongoing daily weights and low salt diet - Continue indefinite anticoagulation with coumadin. Follows with coumadin clinic - Exercise/weight loss as tolerated - Patient completed pulmonary rehab therapy - 6MWT obtained on 10/04, however final report not within Epic records. Will follow - Continue to follow EP for ongoing management of A.Fib - Offered PSG, however patient continues to defer Return in about 4 months (around 02/11/2023). Niharika Frias MD October 14, 2022 7:14 AM documented in this encounterProvidence Hospital02-08-2023 Miscellaneous Notes* Telephone Encounter - Jesenia Arzate APRN.CNP - 10/06/2022 11:16 AM EST Spoke to patient CT chest shows clearing of left pneumonia. He will follow up as scheduled with documented in this encounterProvidence Hospital02-08-2023 Miscellaneous Notes* Telephone Encounter - Trey Mari Pss - 10/06/2022 10:20 AM EST PT has a Pace Maker - Fax was sent to MRI safety team in [facility] to get all the approvals and call PT for scheduling. Documents scanned Thanks documented in this encounterProvidence Hospital02-07-2023 Miscellaneous Notes* Addendum Note - Danielle Fonseca DO - 10/05/2022 3:27 PM ESTAddended by: DANIELLE FONSECA on: 10/05/2022 03:27 PM Modules accepted: Orders documented in this encounterProvidence Hospital02-07-2023 History of Present illness Narrative* Danielle Fonseca, - 10/05/2022 3:18 PM EST Images from the original note were not included. [facility] LOCATION: [address] [place] [address] ESTABLISHED PATIENT PATIENT INFO: Alisa Hagan 71 year old Chief Complaint: RENAL CELL CANCER HPI Hospital records reviewed. Prolonged stay S/P robotic radical nephrectomy - 06/21/22 Last Cr: 1.89 Continues to have right abdominal pain. 1-Duration: 2021 2-Location: kidney 3-Severity: N/A 4-Quality: Not applicable 5-Context: N/A 6-Timing: N/A 7-Modifying factors: No treatment prior to referral 8-Associated signs & symptoms: no additional symptoms No question data found. PATHOLOGY: FINAL DIAGNOSIS A. 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 - Tumor size: 4.5 cm in greatest dimension. - Margins negative for tumor. - Non-neoplastic kidney with multiple arterial organizing thrombi and diffuse areas of ischemic necrosis. - Perirenal hematoma and organizing fat necrosis. LAB: WBC (k/uL) Date Value 09/07/2022 9.27 RBC (m/uL) Date Value 09/07/2022 5.09 Hemoglobin (g/dL) Date Value 09/07/2022 14.4 Hematocrit (%) Date Value 09/07/2022 45.8 MCV (fL) Date Value 09/07/2022 90.0 MCH (pg) Date Value 09/07/2022 28.3 MCHC (g/dL) Date Value 09/07/2022 31.4 RDW-CV (%) Date Value 09/07/2022 15.0 Platelet Count (k/uL) Date Value 09/07/2022 219 MPV (fL) Date Value 09/07/2022 9.4 Neut% (%) Date Value 08/17/2022 70.1 Lymph% (%) Date Value 08/17/2022 18.9 Hood% (%) Date Value 08/17/2022 8.7 Baso% (%) Date Value 08/17/2022 0.4 Abs Neut (k/uL) Date Value 08/17/2022 5.18 Abs Hood (k/uL) Date Value 08/17/2022 0.64 Abs Eosin (k/uL) Date Value 08/17/2022 0.11 Abs Baso (k/uL) Date Value 08/17/2022 0.03 Creatinine Date Value Ref Range Status 09/07/2022 1.89 (H) 0.73 - 1.22 mg/dL Final 08/17/2022 1.80 (H) 0.73 - 1.22 mg/dL Final 07/08/2022 1.99 (H) 0.73 - 1.22 mg/dL Final 07/06/2022 2.22 (H) 0.73 - 1.22 mg/dL Final No results found for: PSA, PSAPER URINE POC No results found for this basename: uglucpoc,ubilipoc,uketonpoc,usgpoc,uhbpoc,uphpoc,upropoc,uuropoc ,unitpoc,uwbcpoc,ucolpoc,uclarpoc IMAGING: CT FLANK WO IVCON (Order [id number]) Patient Info Patient Name Sex Alisa Acevedo ([id number]) Male 1950 10/04/2022 4:37 PM - Radiology, [place] In Impression IMPRESSION: 1. Status post right nephrectomy. Slight interval decrease in size of a rounded lesion in the superior right nephrectomy bed suggesting slowly resolving hematoma, however continued attention on follow-up imaging is advised. 2. Persistent though significantly decreased in size right retroperitoneal hematoma. 3. No suspect lymphadenopathy. 4. Left renal hypodense lesions are incompletely characterized in the absence of intravenous contrast material though statistically likely cysts. 5. Stable right adrenal adenoma. ALLERGIES: ALLERGIES No Known Allergies MEDICATIONS: metoprolol succinate ER (TOPROL XL) 50 mg 24 hr tablet Take 1 tablet by mouth once daily. furosemide (LASIX) 40 mg tablet Take 40 mg by mouth once daily. warfarin (COUMADIN) 5 mg tablet Take 1 tablet by mouth once daily. sildenafil (REVATIO) 20 mg tablet Take 20 mg by mouth twice daily. finasteride (PROSCAR) 5 mg tablet Take 5 mg by mouth every evening. atorvastatin (LIPITOR) 80 mg tablet Take 0.5 tablets by mouth once daily. aspirin, enteric coated (ECOTRIN LOW STRENGTH) 81 mg EC tablet Take 1 tablet by mouth once daily. cholecalciferol (VITAMIN D3) 50 mcg (2,000 unit) tablet Take 2,000 Units by mouth twice daily. escitalopram 20 mg tablet Take 20 mg by mouth once daily. 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 on chronic Coumadin,managed by pcp Hyperlipidemia 07/08/2017 LBBB (left bundle branch block) 07/08/2017 Orthostasis Other acute embolism veins 11/2008 left leg Other pulmonary embolism and infarction 1998 Other specified disorder of gallbladder Pulmonary HTN (HCC) Recurrent pulmonary emboli (HCC) Renal mass, right S/p nephrectomy S/P Difficult robotic radical nephrectomy on the right Sinus pause SOB (shortness of breath) 07/08/2017 Smoking Status Reviewed: Yes REVIEW OF SYSTEMS GENERAL: No fever, chills, weight loss, or fatigue. HEAD & NECK: No blurred vision or Sjogren's syndrome CARDIOVASCULAR: NO CHEST PAIN, PALPITATIONS, ANKLE EDEMA RESPIRATORY: No chronic cough, wheezing, dyspnea, hemoptysis. MUSCULOSKELETAL: NO CHRONIC BACK PAIN, ARTHRITIS, CHRONIC NECK PAIN SKIN: NO VARICOSE VEINS, RASH, ABNORMAL ITCHING BLOOD/LYMPHATIC: No easy bleeding, easy bruising, transfusion Hx NEUROLOGICAL: NO HEADACHES, NUMBNESS, SEIZURES, STROKE PSYCHIATRIC: No depression or inordinate anxiety The remainder of the ROS was negative. PHYSICAL EXAMINATION There were no vitals taken for this visit. General appearance: Well appearing, alert, in no acute distress, and well- hydrated, well nourished Skin: Skin color, texture, turgor normal, no suspicious rashes or lesions Head: Normocephalic, no masses, lesions, tenderness or abnormalities Abdomen: Normal abdominal exam, Abdomen soft, non-tender. Bowel sounds normal. No masses, organomegaly Genitourinary: MALE EXAM: Incisions CDI PVR: NA IMPRESSION/PLAN: RCC - 4.5 cm tumor S/P Difficult robotic radical nephrectomy on the right Imaging now with improvement of hematoma. Needs MRI abdomen due to abdominal pain UA and PVR next visit I spent 30 minutes in the visit, with more than 50% of the total [id number] time of the visit in counseling / coordination of care. Danielle Fonseca DO MBA documented in this encounterProvidence Hospital02-01-2023 History of Present illness Narrative* Naveen Ochoa RT(R) - 09/29/2022 2:00 PM EST Radiology Service Progress Note PATIENT NAME: Alisa Hagan DATE OF SERVICE: September 29, 2022 TIME: 3:20 PM PATIENT IDENTITY VERIFICATION COMPLETED USING TWO (2) IDENTIFIERS: Name and Date of confirmedby patient verbally. FALL SCREENING: Has the patient had 2 falls in the last year or 1 fall with injury or currently using an Ambulatory Assistive Device (Walker, Cane, Wheelchair, Crutches, etc.)? No PATIENT GENDER DATA: Male PATIENT RELEVANT IMPLANT DATA REVIEWED: Yes RADIOLOGY DEPARTMENT: CT; Exam(s) Completed: Abdomen/Pelvis and Chest PERIPHERAL IV DATA: Not applicable SIGNED BY: RT Dottie(R) September 29, 2022 3:20 PM documented in this encounterProvidence Hospital01-30-2023 Note ASKIN, LEFT TEMPORAL REGION [facility] 01-30-2023 Note ASKIN, LEFT TEMPORAL REGION [facility] 01-27-2023 Note ASKIN, LEFT TEMPORAL REGION [facility] 01-27-2023 Note ASKIN, LEFT TEMPORAL REGION [facility] 01-27-2023 Note ASKIN, LEFT TEMPORAL REGION [facility] 01-27-2023 Note ASKIN, LEFT TEMPORAL REGION [facility] 01-27-2023 Note ASKIN, LEFT TEMPORAL REGION [facility] 12-29-2022 Miscellaneous Notes* Telephone Encounter - Genoveva Whitten RN - 08/26/2022 10:58 AM EST Pt's name has been added to [facility] procedure board. Genoveva Whitten RN * Telephone Encounter - Henny Ennis RN - 08/26/2022 10:24 AM EST Patient is scheduled for WENDY/cardioversion on 09/07/[address] Horan. The hospital will call the day before between 2-5pm with your arrival time. Patient should not eat or drink after midnight the day before the procedure. Patient will need a delivery route driver when released from the hospital. Patient should continue to take medications as prescribed the morning of the procedure with just a sip of water unless otherwise instructed. Pt needs to be >2 INR the day of the procedure. Pt gets his INR drawn on Tuesday. Dr Ray manages his INR/coumadin. Pt verbalized understanding of instructions and need to therapeutic for the procedure. Will continue to follow INR's. INR 08/25 3.1 Henny Ennis RN documented in this encounterProvidence Hospital12-16-2022 History of Present illness Narrative* Mirian Horan MD - 08/13/2022 2:14 PM EST Images from the original note were not included. Heart and Vascular [facility] SECTION OF CARDIAC PACING and ELECTROPHYSIOLOGY OUTPATIENT VISIT DATE August 13, 2022 OUTPATIENT VISIT TYPE ESTABLISHED PRIMARY CARE PHYSICIAN: Smitha Ray [address] [place] [address] HISTORY OF PRESENT ILLNESS: Prior history, edited as needed: 72-year-old male referred by Dr. Jain for bradycardia. Mr. Hagan has a history of coronary disease, had PCI/stent in 2019, pulmonary hypertension, at least a five-year history of persistent atrialfibrillation managed with rate control and anticoagulation. He never had a cardioversion. In addition he has history of obesity with BMI of 38, as well as left bundle-branch block. He also suffered pulmonary embolism at least 5 times, and is now on chronic anticoagulation. In fact several years agohe received an IVC filter that was subsequently removed. A recent event monitor demonstrated pausesprompting this referral. Mr. Hagan reports fatigue and exertional dyspnea. He denies chest pain, palpitation, or syncope. On occasion he does feel dizzy. He is also under significant stress due to his 's illness (recently diagnosed malignancy). Interval history: Mr. Hagan presents for follow-up. He continues experiencing fatigue and low energy, exertional dyspnea, and episodes of dizziness. He wore a 30 day event monitor demonstrating ongoing atrial fibrillation with most controlled ventricular rate, but pauses up to 3.8 seconds. He has left bundle-branch block, and his LVEF has been preserved. Interval history: Mr. Hagan presents for follow-up. After some initial hesitation he received a dual-chamber pacemaker and underwent DC cardioversion a few weeks later. Now he presents for follow-up. He reports feeling reasonably well. He denies palpitation, dizziness, and reports some improvement in his dyspnea and fatigue. He remains on oral anticoagulation with warfarin. He does report occasional epistaxis.ECG today shows sinus rhythm with left bundle branch block that was noted before. Interval history: In spring 2021 Mr. Hagan developed sustained atrial fibrillation, was supposed to undergo repeat cardioversion, had WENDY in December 2021 that demonstrated left atrial appendage thrombus. WENDY a month later showed thrombus resolution and sinus rhythm was restored. About a month later atrial fibrillationrecurred. Shortly thereafter he developed renal cell malignancy, underwent nephrectomy, had bilateral pulmonary emboli, had IVC filter placement and afterwards removed. Today he presents for follow-up. He is recovering after prolonged hospitalization, still short of breath and tired. He is ECG shows atrial fibrillation with ventricular rate of 95 bpm. The most recent pacemaker interrogation demonstrated atrial fibrillation for at least 6 months. He is on Coumadin now. 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 on chronic Coumadin,managed by pcp Hyperlipidemia 07/08/2017 LBBB (left bundle branch block) 07/08/2017 Orthostasis Other acute embolism veins 11/2008 left leg Other pulmonary embolism and infarction 1998 Other specified disorder of gallbladder Pulmonary HTN (HCC) Recurrent pulmonary emboli (HCC) Renal mass, right S/p nephrectomy S/P Difficult robotic radical nephrectomy on the right Sinus pause SOB (shortness of breath) 07/08/2017 MEDICATIONS: furosemide (LASIX) 40 mg tablet Take 40 mg by mouth once daily. warfarin (COUMADIN) 5 mg tablet Take 1 tablet by mouth once daily. sildenafil (REVATIO) 20 mg tablet Take 20 mg by mouth twice daily. finasteride (PROSCAR) 5 mg tablet Take 5 mg by mouth every evening. atorvastatin (LIPITOR) 80 mg tablet Take 0.5 tablets by mouth once daily. aspirin, enteric coated (ECOTRIN LOW STRENGTH) 81 mg EC tablet Take 1 tablet by mouth once daily. cholecalciferol (VITAMIN D3) 50 mcg (2,000 unit) tablet Take 2,000 Units by mouth twice daily. escitalopram 20 mg tablet Take 20 mg by mouth once daily. metoprolol succinate ER (TOPROL XL) 50 mg 24 hr tablet Take 1 tablet by mouth once daily. tamsulosin (FLOMAX) 0.4 mg Take 0.8 mg by mouth once daily. (Patient not taking: No sig reported) insulin glargine (LANTUS) 100 unit/mL injection Inject 10 Units subcutaneously every morning. (Patient not taking: No sig reported) Review of Systems Constitutional: Positive for fatigue. HENT: Negative for hearing loss. Respiratory: Positive for shortness of breath. Cardiovascular: Negative for chest pain and palpitations. Gastrointestinal: Negative for abdominal pain. Endocrine: Negative for cold intolerance. Genitourinary: Negative for hematuria. Skin: Negative for pallor. Neurological: Negative for syncope. Psychiatric/Behavioral: The patient is not nervous/anxious. PHYSICAL EXAMINATION: BP 133/74 (BP Site: Left Arm, BP Position: Sitting, BP Cuff Size: Regular Adult) Pulse 68 Wt 238 lb 9.6 oz (108.2 kg) SpO2 98% BMI 34.24 kg/m BP w/Orthostatic Vitals Date and Time Orthostatic BP Orthostatic Pulse BP Pulse BP Position BP Site BP Cuff Size 08/13/22 1331 -- -- 133/74 68 Sitting Left Arm Regular Adult Physical Exam Constitutional: Appearance: Normal appearance. HENT: Head: Normocephalic and atraumatic. Eyes: Conjunctiva/sclera: Conjunctivae normal. Pulmonary: Effort: Pulmonary effort is normal. No respiratory distress. Breath sounds: No stridor. Skin: General: Skin is dry. Coloration: Skin is not pale. Neurological: Mental Status: He is alert and oriented to person, place, and time. Psychiatric: Mood and Affect: Mood normal. I have personally reviewed the Electrocardiogram. Assessment PLAN AND RECOMMENDATIONS: ASSESSMENT/PLAN: 1. Atrial fibrillation, persistent (HCC) - ICD9: 427.31, ICD10: I48.19 (primary diagnosis) Remains in persistent atrial fibrillation likely contributing to fatigue and dyspnea. Would recommend DC cardioversion followed by amiodarone load. Will need WENDY prior to cardioversion in light of previous LAKSHMI thrombus. The patient requests the procedure in August, we will make arrangements. - ECG B/O W INTERP (MED OFFICE) - SURGICAL REQUEST - ELECTIVE (03/2020) 2 LBBB (left bundle branch block) - ICD9: 426.3, ICD10: I44.7 Stable, present LVEF, no additional prevention. 3. Sinus node dysfunction (HCC) - ICD9: 427.81, ICD10: I49.5 Addressed by the pacemaker 4. Current use of fdc anticoagulation - ICD9: V58.61, ICD10: Z79.01 Continue warfarin for atrial fibrillation and antiphospholipid syndrome 7. Pacemaker - ICD9: V45.01, ICD10: Z95.0 Normal function, stable lead parameters and appropriate battery longevity Mirian Horan MD CONTACT INFORMATION: Mirian Horan MD Medical Decision Making: Problems: High: Chronic illness with severe change Data: Unique test result(s) reviewed: 2 Unique test(s) ordered: 1 Risk: High: Drug therapy requiring intensive monitoring Medical Decision Making Level: 5 - High documented in this encounterProvidence Hospital12-16-2022 Nurse Note* Davina Tuttle MA - 08/13/2022 1:35 PM EST No cardiac complaints today. Davina Tuttle MA documented in this encounterProvidence Hospital12-01-2022 Instructions* Patient Instructions* Jesenia Arzate APRN.CNP - 07/29/2022 10:[address] chest mid August Breathing tests Follow up with Dr. Frias after testing- in September documented in this encounterProvidence Hospital12-01-2022 History of Present illness Narrative* Jesenia Arzate APRN.CNP - 07/29/2022 10:00 AM EST ESTABLISHED PATIENT FOLLOW-UP SERVICE DATE: 07/25/2022 PRIMARY CARE PHYSICIAN: Smitha Ray MD SUBJECTIVE CHIEF COMPLAINT: Hospital follow up Follows with Dr. Frias for pulmonary hypertension, recurrent PE, CTEPH ZANE 11/06/2019 Lost to follow up PMH: CAD S/P stent, Recurrent PE. Persistent atrial fib. Presence of PPM. Obesity, Renal cell carcinoma. Sees Dr. Emerson for atrial fib, adjustment disorder with depressed mood. HPI: Alisa Hagan is a 72 year old male here for follow-up appointment for Hospital follow up. Hospitalized 06/16-06/29/2022 at [facility]. Presented with dizziness and difficulty urinating. Previouslyadmitted with subcapsular hematoma and retroperitoneal bleed. 05/24-06/04/2022 and again 06/05-06/09/2022. IVC placed in preparation for surgery. When coumadin was restarted, he bled into the tumor, requiring IR embolization, PRBC's and admission to MICU. Had right laparascopic nephrectomy on 06/[address] Fonseca. Discharged to [facility]. 06/29-07/09/2022 Hypercoagulable state, Following with Dr. Waggoner. Following with Dr. Fonseca, urology for renal cell carcinoma. Since hospital discharge: Denies shortness of breath, or fatigue. States that is because he has learned to move more slowly. Rare non-productive cough. Some right LQ discomfort from his surgery. He does not like to take pain medications. Denies chest pain. + LLE edema. Improved. No lightheadedness since adjustment of medications in [place]. Denies unusual bruising or bleeding. Denied any fevers / chills / nausea / vomiting / diarrhea / sinonasal congestion / postnasal drip /heartburn/acid reflux / night sweats / hemoptysis Now on coumadin, indefinitely for hypercoagulation state, recurrent VTE. Following with Dr. Vinson. [facility] is seeing him. But not drawing his INR, Continues to go to PCP for management Continues on Sildenafil for PH. Twice a day On Lasix 40 mg daily, weigh is down 29# since hospitalization, 13# since ZANE 10/2019 Inpatient team recommended Sleep study, PFT 6MWT and follow up with Dr. Frias CT chest in 6 weeks to F/U RUL infiltrate. Never smoked. Immunizations reviewed. Declined flu vaccine today, he sees his PCP next week and will discuss withhim at that time. Had Mike vaccine 11/06/2020. No boosters. 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 Hyperlipidemia 07/08/2017 LBBB (left bundle branch block) 07/08/2017 Orthostasis Other acute embolism veins 11/2008 left leg Other pulmonary embolism and infarction 1998 Other specified disorder of gallbladder Pulmonary HTN (HCC) Recurrent pulmonary emboli (HCC) Renal mass, right S/p nephrectomy S/P Difficult robotic radical nephrectomy on the right Sinus pause SOB (shortness of breath) 07/08/2017 SOCIAL HISTORY: Social History Tobacco Use Smoking status: Never Smokeless tobacco: Never Vaping Use Vaping Use: Never used Substance Use Topics Alcohol use: No Drug use: No MEDICATIONS: Prior to Admission Medications furosemide (LASIX) 40 mg tablet Take 40 mg by mouth once daily. warfarin (COUMADIN) 5 mg tablet Take 1 tablet by mouth once daily. enoxaparin (LOVENOX) 120 mg/0.8 mL injection Inject 0.8 mL subcutaneously twice daily. tamsulosin (FLOMAX) 0.4 mg Take 0.8 mg by mouth once daily. insulin glargine (LANTUS) 100 unit/mL injection Inject 10 Units subcutaneously every morning. sildenafil (REVATIO) 20 mg tablet Take 20 mg by mouth twice daily. metoprolol succinate ER (TOPROL XL) 50 mg 24 hr tablet Take 1.5 tablets by mouth once daily. finasteride (PROSCAR) 5 mg tablet Take 5 mg by mouth every evening. atorvastatin (LIPITOR) 80 mg tablet Take 0.5 tablets by mouth once daily. aspirin, enteric coated (ECOTRIN LOW STRENGTH) 81 mg EC tablet Take 1 tablet by mouth once daily. cholecalciferol (VITAMIN D3) 50 mcg (2,000 unit) tablet Take 2,000 Units by mouth twice daily. escitalopram 20 mg tablet Take 20 mg by mouth once daily. CURRENT ALLERGIES: Patient has no known allergies. COMPLETE REVIEW OF SYSTEMS: See HPI PHYSICAL EXAM: BP 138/68 Pulse 69 Temp (Src) 96.6 (Temporal) Resp 20 Ht 5' 10 (1.78m) Wt 239 lb 4.8 oz (108.5kg) SpO2 97[room air]% BMI 34.34 kg/(m^2). General appearance: Well -appearing, Obese. No apparent distress. Ambulates steadily without assistive device. Alert and oriented HEENT: Eyes without redness or drainage. Pupils midllne. Nares patent without lesion, drainage. Oral mucosa dry Neck: Soft, no masses or JVD Resp: Lungs clear to auscultation, no wheezing or rhonchi, No conversational dyspnea at rest. No chest wall deformity or tenderness CV: IR IR, S1, S2 , 1/6 murmur, Left pedal edema GI: Abdomen soft, tender at left incision sites- well healed, non distended. Skin: Intact. No rash, lesion, ecchymosis. Psych: depressed affect, normal cognition Extremities: edema on left: 1+, pitting, 1/3 of the lower leg No cyanosis/clubbing LLE edema since DVT, improved. DATA: Diagnostic tests reviewed for today's visit, films were personally reviewed by me: Most recent labs and imaging results. Echo, Hospital notes Component Latest Ref Rng & Units 07/08/2022 Glucose 74 - 99 mg/dL 118 (H) BUN 9 - 24 mg/dL 33 (H) Creatinine 0.73 - 1.22 mg/dL 1.99 (H) Sodium 136 - 144 mmol/L 137 Potassium 3.7 - 5.1 mmol/L 4.6 Chloride 97 - 105 mmol/L 102 CO2 22 - 30 mmol/L 25 Anion Gap 9 - 18 mmol/L 10 Calcium 8.5 - 10.2 mg/dL 8.2 (L) eGFR >=60 mL/min/1.73m 36 (L) Component Ref Range & Units 2 wk ago (07/13/22) 3 wk ago (07/08/22) 3 wk ago (07/05/22) 3 wk ago (07/03/22) 3 wk ago (07/02/22) 4 wk ago (07/01/22) 1 mo ago (06/29/22) Hemoglobin 13.0 - 17.0 g/dL 11.1 Low 9.2 Low 9.6 Low 8.7 Low 9.0 Low 9.7 Low 8.5 Low Hematocrit 39.0 - 51.0 % 34.7 Low 29.8 Low 30.3 Low 27.6 Low 29.[address] Chest 06/26/2022 IMPRESSION: 1. Trace bilateral pleural effusion along with presumed atelectasis at the posterior portion of each lower lobe. 2. Small atelectasis or pneumonia at the posterior left upper lobe. 3. Evidence of prior granulomatous disease. PATHOLOGY: 06/21/2022 FINAL DIAGNOSIS A. 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 - Tumor size: 4.5 cm in greatest dimension. - Margins negative for tumor. - Non-neoplastic kidney with multiple arterial organizing thrombi and diffuse areas of ischemic necrosis. - Perirenal hematoma and organizing fat necrosis. 09/07/2017 PFT FVC: 2.87 62% FEV1: 2.22 64% FEV1/FVC: 77% MVV 70 52% T.47 78% RV/TLC 40 118% DLCO: 22.02 68% Mixed obstructive and restrictive ventilatory disorder with a pulmonary parenchymal or vascular process. ASSESSMENT & PLAN: 1. Hospital discharge follow-up - ICD9: V67.59, ICD10: Z09 (primary diagnosis) 2. Pneumonia of right upper lobe due to infectious organism - ICD9: 486, ICD10: J18.9 3. 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 Pulmonary hypertension (HCC) - ICD9: 416.8, ICD10: I27.20 5. Renal cell carcinoma of right kidney (HCC) - ICD9: 189.0, ICD10: C64.1 Orders Placed This Encounter CT CHEST WO IVCON Standing Status: Future Standing Expiration Date: 08/28/2023 Order Specific Question: Feedback on new indications (will be displayed on the order) Answer: None Improved after hospitalization and [facility]. Will require lifelong AC, on coumadin managed by PCP Continues to have indwelling IVC filter Sees Dr. Mcmillan for hypercoagulation state. Hgb and Hct improved Pulmonary hypertension, - WHO group I, 2 and possibly IV Continue sildenafil 20mg BID, did not tolerate TID dosing Continues on lasix 40 mg daily. Following with Urology for renal cell carcinoma. Follow up CT chest in 6 weeks to evaluate SUZETTE pneumonia/infiltrate Refusing Sleep study. He wants more time before next follow up and testing . Will follow up in September Follow up as needed I spent a total of 40 minutes on the date of the service which included preparing to see the patient, [id number] patient care, completing clinical documentation, obtaining and/or reviewing separately obtained history, performing a medically appropriate examination, counseling and educating the pat ient/family/caregiver, and ordering medications, tests, or procedures. Jesenia Arzate APRN.CHERIE Pulmonary, Allergy & Critical Care Medicine [facility] [phone] documented in this encounterProvidence Hospital11-22-2022 Miscellaneous Notes* Telephone Encounter - Deepa Watson - 07/20/2022 2:38 PM EST I called and scheduled patient with Dr. Gonzalez. Thanks Deepa Watson * Telephone Encounter - Dali Dillon APRN.CNP - 07/19/2022 3:55 PM EST Per pt he was to see EP in July of 2022 from hospital stay, AF with RVR. Dali Dillon APRN.CNP documented in this encounterProvidence Hospital11-21-2022 Instructions* Patient Instructions* Dali Dillon APRN.CNP - 07/19/2022 3:51 PM EST Ok to drive from a cardiac aspect. Call if questions or concerns documented in this encounterProvidence Hospital11-21-2022 History of Present illness Narrative* Dali Dillon APRN.CNP - 07/19/2022 3:30 PM EST PRIMARY CARE PHYSICIAN: Smitha Ray [address] [place] [address] Chief Complaint Patient presents with: CARD Hospital Follow Up: HTN HISTORY OF PRESENT ILLNESS: Mr. Hagan is a 71 year old male who is known to Dr. Jain last seen him in the office in October 2021, patient has a history of atrial fibrillation, recent pacemaker implant [employer] dual-chamber pacemaker 07-22-[address] Horan for bradycardia and sinus node dysfunction, chronic recurrent pulmonary embolisms, he continued oral anticoagulation for suspected presence of left atrial clot PFO was also noted.. He sees Dr. Frias for pulmonary hypertension and with history of multiple thromboembolic events on chronic Coumadin therapy. Patient in January 2022, on pacemaker interrogation did show paroxysmal atrial fibrillation, he was contacted by Dr. Horan that recommended rate management and oral anticoagulation, cardioversion would be considered after no interruption of oral anticoagulant. Patient presented the hospital June 16, 2022, for dizziness and difficulty urinating was previously admitted for subscapular hematoma and retroperitoneal bleeding from May 24 to June 04 then June 05 through , CT done during the first admission showed large right subcapsular hematoma in the area of right renal mass extending inferiorly through the right retroperitoneum, he underwentIVC filter placement on 05-20-2022, in preparation for surgery, Coumadin was restarted he had a spontaneous bleed from his tumor requiring IR embolization, blood transfusion and admission to the MICU, During the June 16, 2022 admission, CT demonstrated bilateral pulmonary emboli and was transferred to interventional radiology for pulmonary angiography, pulmonary artery thrombectomy on June 21 he underwent robotic assisted laparoscopic right radial nephrectomy he received 2 units packed red blood cells intraoperatively. Was also found to be in atrial fibrillation with rapid ventricular response and was admitted to the ICU for postoperative management, patient received multiple transfusions postoperatively, on 06-26 CT of the chest revealed pneumonia started on antibiotics, was transitioned to Coumadin therapy, and was discharged to acute rehab with antibiotics and plans for follow-up with hematology oncology as outpatient. 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 Horan at [facility] CARDIOVERSION 02/04/2021 Successful conversion from atrial fibrillation to sinus rhythm, by Dr. Horan at [facility] PCI CORONARY INTERVENT 2019 CT ANGIOGRAPHY CHEST 11/30/2016 w/contrast ECHO TRANSESOPHAG CONGEN PROBE PLCMA IMG I&R 01/02/2021 EF 55%, +LAKSHMI thrombus, +PFO ECHO TRANSESOPHAG CONGEN PROBE [facility] I&R 02/04/2021 EF 50%, mildly dilated RV, moderately dilated LA, no LAKSHMI thrombus, no PFO ECHOCARDIOGRAM 01/04/2006 [facility] EKG 12 LEAD 04/23/2011 [facility] MONITOR 07/08/2017 24 hour LAPS SURG CHOLECYSTECTOMY W/CHOLANGIOGRAPHY 04/21/2009 PACEMAKER IMPLANT Left 07/22/2020 Dual chamber, [employer], MRI compatible 6 weeks after implantm by Dr. Horan at [facility] STRESS TEST 03/11/2006 [facility] WENDY (TRANSESOPHAGEAL ECHO) 11/30/2016 [facility] DO TONSILLECTOMY PRIMARY/SECONDARY AGE 12/> FAMILY HISTORY Problem Relation Age of Onset Arthritis Mother Cancer Mother Blood Disease Sister clotting factor DVT Sister Blood Disease Brother clotting ffactor DVT Brother Blood Disease Father clotting factor Diabetes Father Seizures Father Social History Tobacco Use Smoking status: Never Smokeless tobacco: Never Vaping Use Vaping Use: Never used Substance Use Topics Alcohol use: No Drug use: No ALLERGIES No Known Allergies Medications: Current Outpatient Medications Medication Sig Dispense Refill furosemide (LASIX) 40 mg tablet Take 40 mg by mouth once daily. warfarin (COUMADIN) 5 mg tablet Take 1 tablet by mouth once daily. 30 tablet 0 sildenafil (REVATIO) 20 mg tablet Take 20 mg by mouth twice daily. metoprolol succinate ER (TOPROL XL) 50 mg 24 hr tablet Take 1.5 tablets by mouth once daily. 45 tablet 0 finasteride (PROSCAR) 5 mg tablet Take 5 mg by mouth every evening. atorvastatin (LIPITOR) 80 mg tablet Take 0.5 tablets by mouth once daily. 90 tablet 3 aspirin, enteric coated (ECOTRIN LOW STRENGTH) 81 mg EC tablet Take 1 tablet by mouth once daily. cholecalciferol (VITAMIN D3) 50 mcg (2,000 unit) tablet Take 2,000 Units by mouth twice daily. escitalopram 20 mg tablet Take 20 mg by mouth once daily. enoxaparin (LOVENOX) 120 mg/0.8 mL injection Inject 0.8 mL subcutaneously twice daily. 48 mL 1 tamsulosin (FLOMAX) 0.4 mg Take 0.8 mg by mouth once daily. insulin glargine (LANTUS) 100 unit/mL injection Inject 10 Units subcutaneously every morning. No current facility-administered medications for this visit. Review of Systems Constitutional: Positive for malaise/fatigue. HENT: Negative for congestion. Eyes: Negative for blurred vision. Respiratory: Negative for shortness of breath. Cardiovascular: Negative for chest pain, palpitations, orthopnea and leg swelling. Gastrointestinal: Negative for blood in stool and nausea. Musculoskeletal: Negative for back pain and falls. Neurological: Negative for dizziness, tingling, speech change, loss of consciousness and weakness. Endo/Heme/Allergies: Does not bruise/bleed easily. Psychiatric/Behavioral: The patient does not have insomnia. Physical Examination: Vitals:BP 112/74 Pulse 103 Resp 18 Ht 5' 10 (1.78m) Wt 238 lb 4.8 oz (108.1kg) SpO2 98[room air]% BMI 34.19 kg/(m^2). Last 2 Encounter Wt Readings: Date: Wt: 03/09/2022 260 lb (117.9 kg) 01/29/2022 265 lb (120.2 kg) Physical Exam Vitals and nursing note reviewed. Constitutional: Appearance: He is not diaphoretic. HENT: Head: Atraumatic. Right Ear: Hearing normal. Left Ear: Hearing normal. Nose: No nasal deformity, mucosal edema or rhinorrhea. Eyes: Extraocular Movements: Right eye: No nystagmus. Left eye: No nystagmus. Pupils: Pupils are equal, round, and reactive to light. Neck: Vascular: No carotid bruit, hepatojugular reflux or JVD. Trachea: No tracheal deviation. Cardiovascular: Rate and Rhythm: Normal rate and regular rhythm. Chest Wall: PMI is not displaced. Pulses: Normal pulses. Heart sounds: Normal heart sounds. No murmur heard. Pulmonary: Effort: Pulmonary effort is normal. Breath sounds: Normal breath sounds. No stridor. Abdominal: General: Bowel sounds are normal. Palpations: Abdomen is soft. Tenderness: There is no abdominal tenderness. Musculoskeletal: General: Normal range of motion. Cervical back: Normal range of motion and neck supple. Skin: General: Skin is warm and dry. Coloration: Skin is not pale. Nails: There is no clubbing. Neurological: Mental Status: He is alert and oriented to person, place, and time. Cranial Nerves: No facial asymmetry. Motor: No weakness or abnormal muscle tone. Coordination: Coordination normal. Gait: Gait is intact. Gait normal. Psychiatric: Mood and Affect: Mood and affect normal. Cognition and Memory: Memory normal. Judgment: Judgment normal. Prior Cardiac Testing Echocardiogram 06-17-2022 - The left ventricle is normal in size. There is mild left ventricular hypertrophy. Left ventricular systolic function is normal. EF = 63 5% (2D biplane) Definity contrast used for endocardial border detection. Difficult to assess LV size and function due to beat to beat variability. - The right ventricle is normal in size. Right ventricular systolic function is low normal. - Exam was compared with the prior echocardiographic exam performed on 05/26/2022. The RV size appears normal today. LV function has improved. Lexiscan stress test 02-22-2022 1. SPECT Perfusion Study: Normal Perfusion but abnormal EF. 2. There is no scintigraphic evidence for inducible ischemia. 3. No evidence of scarred myocardium. 4. Left ventricle is normal in size. The left ventricle systolic function is mildly decreased. 5. Right ventricle is normal in size. The right ventricle systolic function is normal. 6. This is an intermediate risk scan. Gated Stress FBP LVEF % 41 Echo: 02/04/21: WENDY: CONCLUSIONS: - Exam indication: Pre Cardioversion, Pre AF Ablation - Left ventricular systolic function is mildly decreased. EF = 50 5% (visual est.) - The right ventricle is mildly dilated. Right ventricular systolic function is moderately decreased. - The left atrial cavity is moderately dilated. There is no left atrial appendage thrombus. - There is no patent foramen ovale as detected by Doppler and agitated saline contrast. - Exam was compared with the prior echocardiographic exam performed on 01/02/21 Cardiac Catheterization: 05/25/18: BMS to diagonal. RA: RV: 38/8 PAP; - (35) PWP: - (17) 65% SAT Holter / Event Recorder : - Stress Test : 09/16/17: IMPRESSION: 1. No evidence for myocardial ischemia or scar. 2. Normal left ventricular wall motion as described above, with an ejection fraction of 57 %. 3. This is a low risk scan No prior studies to compare Assessment and Plan: ASSESSMENT/PLAN: 1. Atrial fibrillation with rapid ventricular response EKG today demonstrates atrial fibrillation, he is asymptomatic, He is on oral anticoagulation, followed by his primary care provider, who does lab work at [facility], per patient INR on Tuesday was 2.3, he did receive short course of Lovenox bridge from his primary care provider 2. Hypertension: Well-controlled at today's visit. 3. Sinus node dysfunction: Has PPM and follows regularly with device clinic as well as Dr. Horan from electrophysiology 4. On long-term Coumadin therapy, follow-up with primary care provider, chads vascular score is 3 and for pulmonary embolism and recurrent DVTs status post IVC filter 5.Right renal mass with subcapsular hematoma and prior RP bleed, recent admission with hemorrhagic shock 6. Diabetes: Hemoglobin A1c during hospitalization 5.2 7. Hypertension: Blood pressures well controlled at today's visit - ECG B/O W INTERP (MED OFFICE) Dali Dillon APRN.CNP Follow up planning: Electronically signed by Dali Dillon APRN.CHERIE The above note was partially created using a dictation recognition software. A reasonable attempt has been made to correct any errors. I spent >30 minutes in the visit, which included a review of the patients pertinent past medicalhistory, history of present health status, review of systems, assessment & planning, counseling, and further coordination of care. documented in this encounterProvidence Hospital11-21-2022 Nurse Note* Janie Tarango LPN - 07/19/2022 3:26 PM EST Patient denies cardiac complaints or symptoms. documented in this encounterProvidence Hospital11-07-2022 Miscellaneous Notes* Telephone Encounter - Danielle Fonseca DO - 07/05/2022 11:21 AM EST How am I supposed to exam him at [facility]? Does he want an appt to come in? Scrotal ultrasound? BRAVO appt??? * Telephone Encounter - Ignacia Culverjackson - 07/02/2022 1:56 PM EDT [facility] ([phone]) where the pt is residing, called and would like you to take a look at Alisa's scrotal testicular pain with palpation and ambulation. No discomfort at rest, no redness or swelling noted upon exam. Aure would appreciate your input. Ignacia Glasgow documented in this encounterProvidence Hospital11-06-2022 History of Present illness Narrative* Deena Waggoner MD - 07/04/2022 9:37 AM EST [facility] referral. documented in this encounterProvidence Hospital11-04-2022 NoteHNO ID: [id number] Author: Lynette Chavarria Service: Radiology Author Type: Research Editor Type: Progress Notes Filed: 07/02/2022 4:17 PM Note Text: Radiology Service Progress Note PATIENT NAME: Alisa Hagan DATE OF SERVICE: July 02, 2022 TIME: 4:17 PM PATIENT IDENTITY VERIFICATION COMPLETED USING TWO (2) IDENTIFIERS: Name and Date of confirmed by patient verbally and Name and Date of confirmed by identification band. FALL SCREENING: Has the patient had 2 falls in the last year or 1 fall with injury or currently using an Ambulatory Assistive Device (Walker, Cane, Wheelchair, Crutches, etc.)? No PATIENT GENDER DATA: Male PATIENT RELEVANT IMPLANT DATA REVIEWED: Not Applicable RADIOLOGY DEPARTMENT: Ultrasound PERIPHERAL IV DATA: Not applicable SIGNED BY: Lynette Chavarria July 02, 2022 4:17 [id number] History of Present illness Narrative* Lynette Chavarria - 07/02/2022 3:30 PM EDT Radiology Service Progress Note PATIENT NAME: Alisa Hagan DATE OF SERVICE: July 02, 2022 TIME: 4:17 PM PATIENT IDENTITY VERIFICATION COMPLETED USING TWO (2) IDENTIFIERS: Name and Date of confirmedby patient verbally and Name and Date of confirmed by identification band. FALL SCREENING: Has the patient had 2 falls in the last year or 1 fall with injury or currently using an Ambulatory Assistive Device (Walker, Cane, Wheelchair, Crutches, etc.)? No PATIENT GENDER DATA: Male PATIENT RELEVANT IMPLANT DATA REVIEWED: Not Applicable RADIOLOGY DEPARTMENT: Ultrasound PERIPHERAL IV DATA: Not applicable SIGNED BY: Lynette Chavarria July 02, 2022 4:17 PM documented in this encounterProvidence Hospital11-02-2022 Miscellaneous Notes* Telephone Encounter - Lynette Tyler - 06/30/2022 8:07 AM EDT Patient has been scheduled with Jesenia Arzate on Jul 29, 2023 @ 10:00 am Ju Barry * Telephone Encounter - Smitha Sidhu PA-C - 06/28/2022 10:10 AM EDT Please schedule this patient for a hospital follow up appointment in 4-[address] Frias. documented in this encounterProvidence Hospital10-23-2022 Miscellaneous Notes* Telephone Encounter - Jesus Kessler MD - 06/20/2022 1:46 PM EDT I spoke to pts son today, discussed current situation. Pts Hg has dropped slightly to 8.3 (but relatively stable as 8.9 2d ago), pt has been HD stable per nsg so no indication for emergent operative intervention. Plan will be for nephrectomy tomorrow per Dr Fonseca as originally planned unless clinical situation changes Jesus Kessler MD documented in this encounterProvidence Hospital10-19-2022 History of Present illness Narrative* Sasha Alexis APRN.ELECTRIC ARC WELDER - 06/16/2022 2:22 PM EDT Patient's been having issues on and off and been admitted and readmitted to the hospital. 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 Patient's been home for about aweek in the last 3 days family members have noticed a severe decline. They say patient does not want to get up out of bed and is not really awakening like he normally would. Patient has had a couple falls since he has been home no one is sure if he is actually hit his head or not. At this time patient is being referred to the ER because they are unable to even get him out of the car at this point. Family members are going to take him for full evaluation documented in this encounterProvidence Hospital10-17-2022 Miscellaneous Notes* Telephone Encounter - Elvira Callejas LPN - 06/14/2022 4:42 PM EDT Spoke with pt about recommendation to decrease dose of Metoprolol to 50 mg once daily, and to monitor BP and HR for one week and call office back in one week with those readings. Patient verbalizes understanding and is agreeable. Thanks!! Elvira Callejas LPN * Telephone Encounter - Elvira Callejas LPN - 06/14/2022 4:40 PM EDT Ok to decrease to previous dose of 50 mg daily. Continue to monitor BP and HR. Report in one week FXM * Telephone Encounter - Elvira Callejas LPN - 06/14/2022 2:29 PM EDT Patient called [facility] to report that he was started on metoprolol er 50 mg 1.5 tabs once daily, and heis experiencing dizziness and balance issues. BP has been 140's/80's and HR has been in high 90's. Requesting if he can start another medication or if dosage can be changed. Please advise. Thanks Elvira Callejas LPN documented in this encounterProvidence Hospital10-03-2022 Miscellaneous Notes* Telephone Encounter - Addie Ny APRN.CHERIE - 05/31/2022 11:[address] Pittman, Please sign the orders for Alisa Hagan. PFTs, 6MWT, PSG The patient will also need a follow up with our office afterwards with Dr. Frias. Thank you! Addie Ny APRN.CHERIE May 31, 2022 11:55 AM documented in this encounterProvidence Hospital10-03-2022 Miscellaneous Notes* Telephone Encounter - Trey Mari Pss - 05/31/2022 9:42 AM EDT PT is still in hospital * Telephone Encounter - Josie Sharp APRN.ELECTRIC ARC WELDER - 05/31/2022 8:54 AM EDT Pt known to Dr Fonseca. He was scheduled for RIGHT nephrectomy on 06/03, however, he developed a retroperitoneal hemorrhage and underwent IR embolization of R kidney 05/25. He needs an appt to f/u with Dr. Fonseca and discuss next steps re: nephrectomy documented in this encounterProvidence Hospital09-30-2022 Miscellaneous Notes* Telephone Encounter - Kandi Kingsley RT(R) - 05/28/2022 2:05 PM EDT During an angiogram for embolization of a renal artery bleed, a radiation dose of 6239mGy occurred.Information ( Skin Care following Interventional Fluoroscopic Procedure Sheet) was sent with the patient's chart to be given to the patient and family. documented in this encounterProvidence Hospital09-28-2022 History of Present illness Narrative* Anthony Del Cid MD - 05/26/2022 4:59 PM EDT FINISHING DEPARTMENT SUPERVISOR CONSULT NOTE PATIENT NAME: Alisa Hagan PATIENT SERVICE DATE: May 26, 2022 SERVICE TIME: 4:59 PM CONSULTING SERVICE: Diagnostic Medical Physics REASON FOR CONSULT: Patient Radiation Skin Dose Estimate CONSULTATION REQUESTER: Per Fluoroscopy Radiation Dose and Patient Management Policy CONSULTATION RESULTS: The patient underwent 1 fluoroscopically-guided procedures on 05/25/2022 resulting in a cumulative of air kerma of approximately 6.2 Gy. As such, the patient has exceeded the institution's significant radiation dose level (SRDL) 2, requiring further analysis to determine the skin dose. All available information was collected and evaluated to estimate a peak skin dose of approximately 5.6 Gy to a region of skin in the Center Posterior Abdomen. . FOLLOW UP REQUIRED: No, per the Fluoroscopy Radiation Dose and Patient Management Policy patient followup is only required for skin absorbed doses exceeding 6 Gy from a single procedure. For this patient only the radiation post-procedure skin care information / education is required at this time. Thank you for the opportunity to participate in this patient's care. SIGNATURE: Anthony Del Cid, PhD PATIENT NAME: Alisa Hagan DATE: May 26, 2022 TIME: 4:59 PM PAGER/CONTACT #: [phone] documented in this encounterProvidence Hospital09-22-2022 Miscellaneous Notes* Telephone Encounter - Susu Read - 05/20/2022 8:24 AM EDT I have called the PCP office to let them know that his INR will need checked Tuesday. Patient had IVC filter placed today. I left a voicemail letting them know. documented in this encounterProvidence Hospital09-20-2022 Miscellaneous Notes* Telephone Encounter - Elvira Callejas LPN - 05/18/2022 2:53 PM EDT Clearance form received from [facility]. Requesting cardiac clearance for robotic right nephrectomy, scheduled for 06/03/2022. Form faxed to Dr. Jain at the [place] office, form also scanned in. Elvira Callejas LPN documented in this encounterProvidence Hospital09-20-2022 History of Present illness Narrative* Samuel Jain MD - 05/18/2022 1:46 PM EDT Images from the original note were not included. PRIMARY CARE PHYSICIAN: Smitha Ray [address] [place] [id number] REFERRING PHYSICIAN: SELF CHIEF COMPLAINT: Preop eval HISTORY OF PRESENT ILLNESS: Mr. Hagan is a 71 year old male who presents today for preoperative assessment. The patient is contemplating having surgical procedure to address Right renal mass The patient carries the following cardiac diagnosis or risk factors. 1. Pre-operative cardiovascular examination - ICD9: V72.81, ICD10: Z01.810 (primary diagnosis) 2. Status post placement of cardiac pacemaker - ICD9: V45.01, ICD10: Z95.0 3. Persistent atrial fibrillation (HCC) - ICD9: 427.31, ICD10: I48.19 4. Pulmonary HTN (HCC) - ICD9: 416.8, ICD10: I27.20 Patient has a history of persistent atrial fibrillation he has been chronically anticoagulated. Hashad 2 cardioversions and 1 attempted ablative procedure. This was aborted due to the presence of left atrial appendage clot. The patient has been maintained on anticoagulation with no plans for repeat intervention He has been found to have a renal mass and has been scheduled for robotic nephrectomy in the near future. Anticoagulation has been placed on hold in he is currently on subcutaneous Lovenox in anticipation to his surgical procedure. He denies chest pain, shortness of breath, orthopnea, cough, edema, palpitations, PND, lightheadedness or syncope. CARDIAC RISK FACTORS: Smoking: No Diabetes: No Lipids: Yes Obesity: Yes HTN: Yes Sedentary Lifestyle: Yes Family History of M.A.C.E: Family history of PE. CHF: No Stroke /TIA: No MOST RECENT CARDIAC TESTING: Echo: 02/04/21: WENDY: CONCLUSIONS: - Exam indication: Pre Cardioversion, Pre AF Ablation - Left ventricular systolic function is mildly decreased. EF = 50 5% (visual est.) - The right ventricle is mildly dilated. Right ventricular systolic function is moderately decreased. - The left atrial cavity is moderately dilated. There is no left atrial appendage thrombus. - There is no patent foramen ovale as detected by Doppler and agitated saline contrast. - Exam was compared with the prior CC echocardiographic exam performed on 01/02/21: WENDY: CONCLUSIONS: - Exam indication: Pre Cardioversion, Pre AF Ablation - The left ventricle is normal in size. Left ventricular systolic function is normal. EF = 55 5% (visual est.) Left ventricular diastolic function was not evaluated. - The right ventricle is normal in size. Right ventricular systolic function is normal. - No significant valve disease. - Left atrial appendage thrombus noted at the tip of the appendage. - There is a patent foramen ovale as detected by agitated saline contrast. - Exam was compared with the prior CC echocardiographic exam performed on 10/25/2019. 11/02/18: CONCLUSIONS: - Technically difficult exam due to body habitus. - Exam indication: Shortness of Breath - The left ventricle is normal in size. Left ventricular systolic function is normal. Definity contrast used for endocardial border detection. Indeterminate left ventricular diastolic dysfunction due to AF. - The right ventricle is normal in size. Right ventricular systolic function is low normal. Tricuspid annular displacement is 1.7 cm. - The right atrial cavity is dilated. - There are no significant valvular abnormalities. - RVSP was not assessed due to low Tricuspid flows. - Exam was compared with the prior CC echocardiographic exam performed on 09/16/17 (ECHO). [address] [facility]. Cardiac Catheterization: 05/25/18: BMS to diagonal. RA: RV: 38/8 PAP; - (35) PWP: - (17) 65% SAT Holter / Event Recorder : - Stress Test : 09/16/17: IMPRESSION: 1. No evidence for myocardial ischemia or scar. 2. Normal left ventricular wall motion as described above, with an ejection fraction of 57 %. 3. This is a low risk scan No prior studies to compare TILT: - Device: - PAST CARDIAC EVENTS: 5 lifetime pulmonary embolic events. S/p IVC filter deployment and retrieval 6 months later. This may have been during his last PE 6 yrsago. 01/02/21: LAKSHMI thrombus, DCC cancelled. 02/04/21: PPM, Dr Horan 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 on chronic Coumadin,managed by pcp Hyperlipidemia 07/08/2017 LBBB (left bundle branch block) 07/08/2017 Orthostasis Other acute embolism veins 11/2008 left leg Other pulmonary embolism and infarction 1998 Other specified disorder of gallbladder Pulmonary HTN (HCC) Recurrent pulmonary emboli (HCC) Renal mass, right Sinus pause SOB (shortness of breath) 07/08/2017 PAST SURGICAL HISTORY Procedure Laterality Date CARDIOVERSION 09/12/2020 Successful conversion from atrial fibrillation to atrial paced rhythm, by Dr. Horan at [facility] CARDIOVERSION 02/04/2021 Successful conversion from atrial fibrillation to sinus rhythm, by Dr. Horan at [facility] CC PCI CORONARY INTERVENT 2018 CT ANGIOGRAPHY CHEST 11/30/2016 w/contrast ECHO TRANSESOPHAG CONGEN PROBE [facility] I&R 01/02/2021 EF 55%, +LAKSHMI thrombus, +PFO ECHO TRANSESOPHAG CONGEN PROBE [facility] I&R 02/04/2021 EF 50%, mildly dilated RV, moderately dilated LA, no LAKSHMI thrombus, no PFO ECHOCARDIOGRAM 01/04/2006 [facility] EKG 12 LEAD 04/23/2011 [facility] EVENT MONITOR 07/08/2017 24 hour LAPS SURG CHOLECYSTECTOMY W/CHOLANGIOGRAPHY 04/21/2009 PACEMAKER IMPLANT Left 07/22/2020 Dual chamber, [employer], MRI compatible 6 weeks after implantm by Dr. Horan at [facility] STRESS TEST 03/11/2006 [facility] WENDY (TRANSESOPHAGEAL ECHO) 11/30/2016 Nakul/Payton Hastings DO TONSILLECTOMY PRIMARY/SECONDARY AGE 14/> SOCIAL HISTORY Social History Tobacco Use Smoking status: Never Smokeless tobacco: Never Vaping Use Vaping Use: Never used Substance Use Topics Alcohol use: No Drug use: No FAMILY HISTORY Problem Relation Age of Onset Arthritis Mother Cancer Mother Blood Disease Sister clotting factor DVT Sister Blood Disease Brother clotting ffactor DVT Brother Blood Disease Father clotting factor Diabetes Father Seizures Father ALLERGIES: ALLERGIES No Known Allergies MEDICATIONS: Silodosin 4 mg cap Take 4 mg by mouth daily with dinner. enoxaparin sodium (LOVENOX SUBCUTANEOUS) Inject subcutaneously. sildenafil (REVATIO) 20 mg tablet TAKE 1 TABLET TWICE DAILY finasteride (PROSCAR) 5 mg tablet Take 5 mg by mouth every evening. nebivolol (BYSTOLIC) 5 mg tablet Take 5 mg by mouth once daily. warfarin (COUMADIN) 2 mg tablet Take 1 tablet by mouth once daily. Take 2 mg T, TH, TUE, TUE, --3 mg on M, W, F atorvastatin (LIPITOR) 80 mg tablet Take 0.5 tablets by mouth once daily. aspirin, enteric coated (ECOTRIN LOW STRENGTH) 81 mg EC tablet Take 1 tablet by mouth once daily. cholecalciferol (VITAMIN D3) 1,000 unit tab tablet Take 2,000 Units by mouth twice daily. escitalopram 20 mg tablet Take 20 mg by mouth once daily. tamsulosin (FLOMAX) 0.4 mg Take 0.8 mg by mouth once daily. (Patient not taking: Reported on 05/18/2022) HYDROcodone-Acetaminophen 5-300 mg tab TAKE 1 TABLET BY MOUTH EVERY 6 HOURS NEEDED NEEDED FORPAIN FOR 3 DAYS (Patient not taking: Reported on 05/18/2022) REVIEW OF SYSTEMS: GENERAL: Negative for: Weight loss or gain, Fever or Chills, Weakness and Sleep difficulties. HEENT: Negative for: Headache, Impaired Vision, Glasses, Hearing Impairment, Ringing in Ears, Nosebleeds, Poor dental care, Bleeding Gums, Dentures NECK: Negative for: Swelling, Pain, Stiffness RESPIRATORY: Negative for: Cough, Blood in Sputum, Shortness of breath, Wheezing, Apnea GASTROINTESTINAL: Negative for: Trouble swallowing, Heartburn, Change in bowel habits, Blood in stool, Dark black stools MUSCULOSKELETAL: Negative for: Muscle or joint pain, Stiffness , Joint swelling NEUROLOGIC/PSYCHIATRIC: Negative for: Weakness, Paralysis, Numbness, Tingling, Tremor, Nervousness,Depressed mood, Memory loss SKIN: Negative for: Rashes, Itching HEMATOLOGICAL/LYMPHATIC: Negative for: Easy bruising , Easy bleeding ENDOCRINE: Negative for: Heat or cold intolerance, Excessive sweating, Frequent urination, Frequentthirst PHYSICAL EXAMINATION: BP 148/96 Pulse 81 Resp 18 Ht 5' 10 (1.78m) Wt 250 lb (113.4kg) SpO2 95% BMI 35.87 kg/(m^2). General: Well appearing, in no acute distress. Skin: No clubbing, no cyanosis. Eyes: Extra ocular movements intact Oropharynx: Teeth in good repair. Neck: No jugular venous distention, no carotid bruits, carotids have a normal upstroke, no palpablethyromegaly. Lungs: Clear to auscultation bilaterally, no wheezing or rhonchi. Heart: Regular rhythm, PMI not displaced, S1, S2 normal, no S3, no S4, no heaves, no rub and no murmur. Abdomen: Soft, nontender, bowel sounds normal, no palpable organomegaly, no bruits. Extremities: No peripheral edema . Grade 2/4 distal pulses bilaterally. Neuro: Oriented to person, place and time, alert, cooperative, gait coordinated. CARDIOVASCULAR MEDICINE TESTING: Electrocardiogram: Atrial fibrillation with variable response left bundle branch block I have personally reviewed the Electrocardiogram. IMPRESSION: Mr. Hagan is a 71 year old male with a history of persistent atrial fibrillation, left frontal branch block, chronic anticoagulation hyperlipidemia who is in need of right nephrectomy for excision of suspicious mass. Per the cardiac standpoint I do not see any prohibitive issues. He is currently on bridging anticoagulant therapy with Lovenox. His overall cardiac risk is intermediate and mostly due to the risk for cardioembolic event during a lapse in anticoagulation. The patient will have an IVC filter deployed in the next few days. However this would only satisfy any potential clots comingon the venous side. The patient understands this risk.. - Planned Surgical Procedure: Right nephrectomy, with estimated procedural risk: moderate Cardiac diagnosis: Persistent atrial fibrillation, chronic anticoagulation, hyperlipidemia, historyof pacemaker defibrillator implant. Estimated cardiovascular risk: moderate. Estimated overall risk of saadia-operative cardicac morbidity/mortality for the planned procedure: usual Additional pre-operative cardiac testing is not necessary. Saadia-operative beta-lilly is recommended. Exercise capacity estimated at 6 METS Last assessed ejection fraction: Normal ejection fraction Anticoagulation/ Antiplatelet therapy: Warfarin, Lovenox bridge. Last EKG: Atrial fibrillation with left bundle branch block Metabolic: A1C: Not available Albumin: Not available Hgb: 15 WBC/Plts: Creat/ GFR: 1.45/54 I will remain available during the perioperative stages. Please do not hesitate to call if the needarises PLAN AND RECOMMENDATIONS: 6 month follow up. Samuel Jain MD, [facility] This note was partially generated using [employer] voice recognition system, and there may be some incorrect words, spellings, and punctuation that were not noted in checking the note before saving. documented in this encounterProvidence Hospital09-20-2022 Nurse Note* Zhanna Callejas MA - 05/18/2022 1:26 PM EDT Patient having slight chest pain today. No other complaints. documented in this encounterProvidence Hospital09-16-2022 Miscellaneous Notes* Telephone Encounter - Dali Dillon APRN.CNP - 05/14/2022 3:00 PM EDT I saw patient the week prior to his episode of syncope. I also asked device clinic to do a device check for arrhythmia review. Dali Dillon APRN.CNP * Telephone Encounter - Janie Tarango LPN - 05/14/2022 2:23 PM EDT Sierra called in and states remote was done on 05/13/2022. She states it does not show anything thatwould cause syncope on 05/08/2022. States report will be available in Epic shortly for your review. Janie Tarango LPN * Telephone Encounter - Ariana Chin LPN - 05/14/2022 1:51 PM EDT Clearance request form from [facility] for Mr Hagan was faxed to Dali Dillon NP in [place]. They also included pre op examination note from 05-12-2022. (This is also viewable inpatient's Epic chart) Thank you, Ariana Chin LPN * Telephone Encounter - Janie Tarango LPN - 05/14/2022 1:39 PM EDT I called and spoke to and he states he had a syncope episode on 05/08/2022. Patient was seen by Dali on 05/04/2022. I called device clinic to have them do download of device to see if arrhythmia was present. They did not answer so I left message for them to call my extension regarding patient. Dali would like to see patient for clearance. I will forward for update and clerical to call and schedule appointment. Janie Tarango LPN * Telephone Encounter - Jenny Weber RN - 05/14/2022 1:04 PM EDT Received a call from Dr. Fonseca's staff who stated patient went to pre- admission testing and toldnurse that he had an episode of of passing out. Will be sending another clearance form, anesthesia requesting another form be completed. Jenny Weber RN documented in this encounterProvidence Hospital09-16-2022 Miscellaneous Notes* Telephone Encounter - Gay Patel LPN - 05/14/2022 1:13 PM EDT Patient notified. Gay Patel LPN May 14, 2022 1:13 PM * Telephone Encounter - Janie Douglas APRN.CNP - 05/14/2022 10:23 AM EDT Can you please let pt know we do not stop aspirin for filter placement, however, he may need to hold it prior to his surgery with Dr. Fonseca - that would be up to Dr. Fonseca. Lovenox bridge is for his coumadin and will not affect filter placement. Thanks, Janie Douglas APRN.CNP * Telephone Encounter - Gay Patel LPN - 05/14/2022 10:14 AM EDT Patient calling in and left message. Patient states he has upcoming surgery to install a filter with Dr. Richardson. Patient asking if he is supposed to stop his 81mg of aspirin? When? How long? Patient states his PCP is supposed to have him changed over to Lovenox. Gay Patel LPN May 14, 2022 10:17 AM documented in this encounterProvidence Hospital09-06-2022 Instructions* Patient Instructions* Dali Dillon APRN.CHERIE - 05/04/2022 10:34 AM EDT Please see Dr. Frias documented in this encounterProvidence Hospital09-06-2022 Nurse Note* Henny Ennis RN - 05/04/2022 10:02 AM EDT Pt denies cardiac complaints or sx. eHnny Ennis RN documented in this encounterProvidence Hospital09-06-2022 History of Present illness Narrative* Dali Dillon, FLACO.ELECTRIC ARC WELDER - 05/04/2022 10:00 AM EDT PRIMARY CARE PHYSICIAN: Smitha Ray [address] [place] [id number] Chief Complaint Patient presents with: Cardiology Follow Up : HTN HISTORY OF PRESENT ILLNESS: Mr. Hagan is a 71 year old male who is known to Dr. Jain last seen him in the office in October 2021, patient has a history of atrial fibrillation, recent pacemaker implant [employer] dual-chamber pacemaker 07-22-[address] Horan for bradycardia and sinus node dysfunction, chronic recurrent pulmonary embolisms, he continued oral anticoagulation for suspected presence of left atrial clot PFO was also noted.. He sees Dr. Frias for pulmonary hypertension and with history of multiple thromboembolic events on chronic Coumadin therapy. Patient in January 2022, on pacemaker interrogation did show paroxysmal atrial fibrillation, he was contacted by Dr. Horan that recommended rate management and oral anticoagulation, cardioversion would be considered after no interruption of oral anticoagulant. Patient is here today for a surgery scheduled with Dr. Jackson on 05-18-2022 a robotic right nephrectomy versus partial nephrectomy. Patient arrives here today for preoperative surgical consultation, patient states he can feel his A. fib, he states is worse when he is doing physical exercise like mowing the yard, he has had no chest pain with exertion or at rest, he has had no edema dizziness or near syncope. 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 Horan at [facility] CARDIOVERSION 02/04/2021 Successful conversion from atrial fibrillation to sinus rhythm, by Dr. Horan at [facility] CC PCI CORONARY INTERVENT 2019 CT ANGIOGRAPHY CHEST 11/30/2016 w/contrast ECHO TRANSESOPHAG CONGEN PROBE [facility] I&R 01/02/2021 EF 55%, +LAKSHMI thrombus, +PFO ECHO TRANSESOPHAG CONGEN PROBE [facility] I&R 02/04/2021 EF 50%, mildly dilated RV, moderately dilated LA, no LAKSHMI thrombus, no PFO ECHOCARDIOGRAM 01/04/2006 [facility] EKG 12 LEAD 04/23/2011 [facility] EVENT MONITOR 07/08/2017 24 hour LAPS SURG CHOLECYSTECTOMY W/CHOLANGIOGRAPHY 04/21/2009 PACEMAKER IMPLANT Left 07/22/2020 Dual chamber, [employer], MRI compatible 6 weeks after implantm by Dr. Horan at [facility] STRESS TEST 03/11/2006 [facility] WENDY (TRANSESOPHAGEAL ECHO) 11/30/2016 Nakul/Payton Hastings DO TONSILLECTOMY PRIMARY/SECONDARY AGE 14/> FAMILY HISTORY Problem Relation Age of Onset Arthritis Mother Cancer Mother Blood Disease Sister clotting factor DVT Sister Blood Disease Brother clotting ffactor DVT Brother Blood Disease Father clotting factor Diabetes Father Seizures Father Social History Tobacco Use Smoking status: Never Smokeless tobacco: Never Vaping Use Vaping Use: Never used Substance Use Topics Alcohol use: No Drug use: No ALLERGIES No Known Allergies Medications: Current Outpatient Medications Medication Sig Dispense Refill tamsulosin (FLOMAX) 0.4 mg Take 0.8 mg by mouth once daily. HYDROcodone-Acetaminophen 5-300 mg tab TAKE 1 TABLET BY MOUTH EVERY 6 HOURS NEEDED NEEDED FORPAIN FOR 3 DAYS sildenafil (REVATIO) 20 mg tablet TAKE 1 TABLET TWICE DAILY 180 tablet 3 finasteride (PROSCAR) 5 mg tablet Take 5 mg by mouth every evening. nebivolol (BYSTOLIC) 5 mg tablet Take 5 mg by mouth once daily. warfarin (COUMADIN) 2 mg tablet Take 1 tablet by mouth once daily. Take 2 mg T, TH, SAT, SUN, --3 mg on M, W, 25 tablet 0 atorvastatin (LIPITOR) 80 mg tablet Take 0.5 tablets by mouth once daily. 90 tablet 3 aspirin, enteric coated (ECOTRIN LOW STRENGTH) 81 mg EC tablet Take 1 tablet by mouth once daily. cholecalciferol (VITAMIN D3) 1,000 unit tab tablet Take 2,000 Units by mouth twice daily. escitalopram 20 mg tablet Take 20 mg by mouth once daily. No current facility-administered medications for this visit. ROS Physical Examination: Vitals:BP 132/62 Pulse 72 Resp 20 Ht 5' 10 (1.78m) Wt 253 lb 11.2 oz (115.1kg) SpO2 96[RA]% BMI 36.40 kg/(m^2). Last 2 Encounter Wt Readings: Date: Wt: 03/09/2022 260 lb (117.9 kg) 01/29/2022 265 lb (120.2 kg) Physical Exam Prior Cardiac Testing Lexiscan stress test 02-22-2022 1. SPECT Perfusion Study: Normal Perfusion but abnormal EF. 2. There is no scintigraphic evidence for inducible ischemia. 3. No evidence of scarred myocardium. 4. Left ventricle is normal in size. The left ventricle systolic function is mildly decreased. 5. Right ventricle is normal in size. The right ventricle systolic function is normal. 6. This is an intermediate risk scan. Gated Stress FBP LVEF % 41 Echo: 02/04/21: WENDY: CONCLUSIONS: - Exam indication: Pre Cardioversion, Pre AF Ablation - Left ventricular systolic function is mildly decreased. EF = 50 5% (visual est.) - The right ventricle is mildly dilated. Right ventricular systolic function is moderately decreased. - The left atrial cavity is moderately dilated. There is no left atrial appendage thrombus. - There is no patent foramen ovale as detected by Doppler and agitated saline contrast. - Exam was compared with the prior echocardiographic exam performed on 01/02/21 Cardiac Catheterization: 05/25/18: BMS to diagonal. RA: RV: 38/8 PAP; - (35) PWP: - (17) 65% SAT Holter / Event Recorder : - Stress Test : 09/16/17: IMPRESSION: 1. No evidence for myocardial ischemia or scar. 2. Normal left ventricular wall motion as described above, with an ejection fraction of 57 %. 3. This is a low risk scan No prior studies to compare Assessment and Plan: ASSESSMENT/PLAN: 1. Preop cardiovascular exam - ICD9: V72.81, ICD10: Z01.810 EKG demonstrates left bundle branch block, atrial fibrillation, rates controlled. In the absence of signs and symptoms of unstable angina, myocardial infarction, decompensated heartfailure, severe aortic stenosis, malignant arrhythmias. In addition, they can engage in at least 4 METS of physical activity without cardiac limitations. RCRI is __6.6__ percent.Patient is at__moderate___ cardiac risk for myocardial Infarction, Pulmonary Edema, Ventricular Fibrillation, Cardiac Arrest or Complete Heart Block and is medically optimized for the same. Cardiac risk reviewed in detailwith patient who voices understanding. A copy of the form has been provided to the patient as well as faxed to the performing provider. Patient has a history of multiple pulmonary embolisms, follows with Dr. Frias recommendation shouldbe sought regarding anticoagulant/bridging. Patient has also seen Dr. Richardson from vascular surgery to talk about filter placement. Patient is aware of his thrombolytic risk being off of anticoagulation. Overhydration should be avoided in the surgical setting. Please do not hesitate to consult Dr. Jain or Dr. Horan if cardiac issues arise during the postoperative period 2. Hypertension: Well-controlled at today's visit. 3. Sinus node dysfunction: Has PPM and follows regularly with device clinic as well as Dr. Horan from electrophysiology 4. On long-term Coumadin therapy, follow-up with primary care provider, chads vascular score is 3 - ECG B/O W INTERP (MED OFFICE) Dali Dillon APRN.CNP Follow up planning: Please keep planned appointments. Electronically signed by Dali Dillon APRN.CNP The above note was partially created using a dictation recognition software. A reasonable attempt has been made to correct any errors. I spent >30 minutes in the visit, which included a review of the patients pertinent past medicalhistory, history of present health status, review of systems, assessment & planning, counseling, and further coordination of care. documented in this encounterProvidence Hospital08-02-2022 History of Present illness Narrative* Reuben Austinshawanda, RT(R) - 03/30/2022 1:45 PM EDT RADIOLOGY SERVICE PROGRESS NOTE SERVICE DATE: 03/30/2022 SERVICE TIME: 2:44 PM PATIENT IDENTITY VERIFICATION COMPLETED USING TWO (2) STANDARD IDENTIFIERS: Name and Date of confirmed by patient verbally FALL SCREENING: Has the patient had 2 falls in the last year or 1 fall with injury or currently using an Ambulatory Assistive Device (Walker, Cane, Wheelchair, Crutches, etc.)? No PATIENT GENDER DATA: .male : No ALLERGIES: Reviewed and unchanged MEDICATIONS REVIEWED: Yes PATIENT RELEVANT IMPLANT DATA REVIEWED: Not Applicable CREATININE: Creatinine Date Value Ref Range Status 02/04/2021 0.99 0.73 - 1.22 mg/dL Final 01/02/2021 1.09 0.73 - 1.22 mg/dL Final 09/12/2020 0.99 0.73 - 1.22 mg/dL Final eGFR-All Other Races Date Value Ref Range Status 02/04/2021 >60 Final Comment: eGFR (Estimated GFR) Units of measure: mL/min/1.73 meters squared eGFR is derived from the reexpressed MDRD Study equation using the following parameters: serum creatinine, age, gender and race. The creatinine assay has been calibrated to be traceable to IDMS. An eGFR <60 mL/min/1.73m2 for >3 months is consistent with chronic kidney disease. Refer to KDOQI guidelines for clinical interpretation. In patients with unstable renal function, e.g. those with acute kidney injury, the eGFR may not accurately reflect actual GFR. eGFR- Date Value Ref Range Status 02/04/2021 >60 Final P.O.C.T. RESULTS: N/A March 30, [address] PERFORMED: No IV SITE: Ambulatory: A peripheral IV was started in the Right antecubital site with a Angio cath: 24 gauge. POST EXAM PIV STATUS: Discontinued PROCEDURE TYPE: NM INJECT: 11. 11 mCi Tc99m MAG-3. Lasix 40 milligrams intravenous at 1408. ADMINISTRATION TIME: 1408 JM PATIENT DISCHARGED TO: Ambulatory patient, left [place] department area. A Diagnostic radioactive procedure has taken place, with no further precautions necessary other than routine body substance precautions. More information regarding radiation safety can be found usingthis link: [email or web address]%[email or web address] SIGNATURE: RT Gary(R) PATIENT NAME: Alisa Hagan DATE: March 30, 2022 TIME: 2:44 PM PAGER/CONTACT #: documented in this encounterProvidence Hospital07-26-2022 Miscellaneous Notes* Telephone Encounter - Dali Dillon APRN.CNP - 03/23/2022 10:46 AM EDT Thanks!! Dali Dillon APRN.[employer]LECTRIC [employer]ELDER * Telephone Encounter - Elvira Callejas LPN - 03/23/2022 10:26 AM EDT Clearance form received from [facility]. Form scanned in. Pt has clearance appointment on 05/04/2022. Elvira Callejas LPN documented in this encounterProvidence Hospital2022 History of Present illness Narrative* Danielle Fonseca DO - 03/09/2022 11:53 AM EDT Images from the original note were not included. [facility] LOCATION: [address] [place] [address] NEW CONSULT VISIT PATIENT INFO: Alisa Hagan 71 year old PCP: Smitha Ray MD Consultation requested by Smitha Ray MD and my final recommendations will be communicated back to the requesting physician by way of shared medical record or letter via US mail. Chief Complaint: Right renal mass HPI Incidentally found 3.7 cm right renal mass. Found during vascular surgery evaluation. No hematuria, no complaints. He has a pacemaker and is in AFIB, also has been shocked twice for this issue. Takes coumadin and has been on bridging prior with lovenox. 1-Duration: 2021 2-Location: kidney 3-Severity: N/A 4-Quality: Not applicable 5-Context: N/A 6-Timing: N/A 7-Modifying factors: No treatment prior to referral 8-Associated signs & symptoms: no additional symptoms PATHOLOGY: N/A LAB: WBC (k/uL) Date Value 02/04/2021 7.84 RBC (m/uL) Date Value 02/04/2021 4.94 Hemoglobin (g/dL) Date Value 02/04/2021 14.4 Hematocrit (%) Date Value 02/04/2021 44.6 MCV (fL) Date Value 02/04/2021 90.3 MCH (pg) Date Value 02/04/2021 29.1 MCHC (g/dL) Date Value 02/04/2021 32.3 RDW-CV (%) Date Value 02/04/2021 13.7 Platelet Count (k/uL) Date Value 02/04/2021 208 MPV (fL) Date Value 02/04/2021 9.6 Creatinine Date Value Ref Range Status 02/04/2021 0.99 0.73 - 1.22 mg/dL Final 01/02/2021 1.09 0.73 - 1.22 mg/dL Final 09/12/2020 0.99 0.73 - 1.22 mg/dL Final 07/22/2020 1.15 0.73 - 1.22 mg/dL Final URINE POC No results found for this basename: uglucpoc,ubilipoc,uketonpoc,usgpoc,uhbpoc,uphpoc,upropoc,uuropoc ,unitpoc,uwbcpoc,ucolpoc,uclarpoc IMAGING: CT Scan: CT ABD/PEL W IVCON (Order [id number]) Patient Info Patient Name Sex Alisa Acevedo ([id number]) Male 1950 Imaging Findings Finding Acuity Linked Recommendation Recommendation Status Finding Status Kidneys/ureters/bladder Routing Code: GU_1 Actionable Unlisted Recommendation (see report) as soon as possible, when the patient's clinical state allows. Needs Follow-up Reviewed Recommendations Needing Follow-Up Due Finding Recommended by Unlisted Recommendation (see report) as soon as possible, when the patient's clinical state allows.04/10/2022 Kidneys/ureters/bladder Routing Code: GU_1 - Actionable Radiology, Oru In Reading Physician Reading Date [facility] Provider 02/24/2022 02/24/2022 3:54 PM - Radiology, Oru In Component Results Component Performing Lab Radiology Result (Actionable) (Final) [facility] Comment: This report contains an incidental or actionable finding. This finding may be a new finding separate from the reason your provider ordered the imaging test or it may be an already known finding that needs additional or continued follow-up. Because of this incidental or actionable finding, you may need another test (imaging or a different type of test). Please contact your provider for the next steps. Impression IMPRESSION: 3.7 CM RIGHT INTERPOLAR RENAL NEOPLASM. NO LYMPHADENOPATHY OR DEFINITE RENAL VEIN THROMBUS IDENTIFIED ON THIS SINGLE PHASE EXAM. IF NOT ALREADY PERFORMED, UROLOGIC CONSULTATION IS RECOMMENDED. 2 CM RIGHT ADRENAL ADENOMA. I have independently reviewed films and my findings are the same. ALLERGIES: ALLERGIES No Known Allergies MEDICATIONS: sildenafil (REVATIO) 20 mg tablet TAKE 1 TABLET TWICE DAILY finasteride (PROSCAR) 5 mg tablet Take 5 mg by mouth every evening. nebivolol (BYSTOLIC) 5 mg tablet Take 5 mg by mouth once daily. warfarin (COUMADIN) 2 mg tablet Take 1 tablet by mouth once daily. Take 2 mg T, TH, TUE, TUE, --3 mg on M, W, F atorvastatin (LIPITOR) 80 mg tablet Take 0.5 tablets by mouth once daily. aspirin, enteric coated (ECOTRIN LOW STRENGTH) 81 mg EC tablet Take 1 tablet by mouth once daily. cholecalciferol (VITAMIN D) 1,000 unit tab tablet Take 2,000 Units by mouth twice daily. escitalopram 20 mg tablet Take 20 mg by mouth once daily. 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 Horan at [facility] CARDIOVERSION 02/04/2021 Successful conversion from atrial fibrillation to sinus rhythm, by Dr. Horan at [facility] CC PCI CORONARY INTERVENT 2018 CT ANGIOGRAPHY CHEST 11/30/2016 w/contrast ECHO TRANSESOPHAG CONGEN PROBE [facility] I&R 01/02/2021 EF 55%, +LAKSHMI thrombus, +PFO ECHO TRANSESOPHAG CONGEN PROBE [facility] I&R 02/04/2021 EF 50%, mildly dilated RV, moderately dilated LA, no LAKSHMI thrombus, no PFO ECHOCARDIOGRAM 01/04/2006 [facility] EKG 12 LEAD 04/23/2011 [facility] EVENT MONITOR 07/08/2017 24 hour LAPS SURG CHOLECYSTECTOMY W/CHOLANGIOGRAPHY 04/21/2009 PACEMAKER IMPLANT Left 07/22/2020 Dual chamber, [employer], MRI compatible 6 weeks after implantm by Dr. Horan at [facility] STRESS TEST 03/11/2006 [facility] WENDY (TRANSESOPHAGEAL ECHO) 11/30/2016 Nakul/Payton Hastings DO TONSILLECTOMY PRIMARY/SECONDARY AGE 14/> FAMILY HISTORY Problem Relation Age of Onset Arthritis Mother Cancer Mother Blood Disease Sister clotting factor DVT Sister Blood Disease Brother clotting ffactor DVT Brother Blood Disease Father clotting factor Diabetes Father Seizures Father Negative family history: No SOCIAL HISTORY Social History Tobacco Use Smoking status: Never Smoker Smokeless tobacco: Never Used Vaping Use Vaping Use: Never used Substance Use Topics Alcohol use: No Drug use: No Smoking Status Reviewed: Yes REVIEW OF SYSTEMS: GENERAL: No fever, chills, weight loss, or fatigue. HEAD & NECK: No blurred vision or Sjogren's syndrome CARDIOVASCULAR: NO CHEST PAIN, PALPITATIONS, ANKLE EDEMA RESPIRATORY: No chronic cough, wheezing, dyspnea, hemoptysis. MUSCULOSKELETAL: NO CHRONIC BACK PAIN, ARTHRITIS, CHRONIC NECK PAIN SKIN: NO VARICOSE VEINS, RASH, ABNORMAL ITCHING BLOOD/LYMPHATIC: No easy bleeding, easy bruising, transfusion Hx NEUROLOGICAL: NO HEADACHES, NUMBNESS, SEIZURES, STROKE PSYCHIATRIC: No depression or inordinate anxiety The remainder of the ROS was negative. PHYSICAL EXAMINATION Resp 18 Ht 175.3 cm (5' 9) Wt 117.9 kg (260 lb) BMI 38.40 kg/m General appearance: Well appearing, alert, in no acute distress and well- hydrated, well nourished Skin: Skin color, texture, turgor normal, no suspicious rashes or lesions Head: Normocephalic, no masses, lesions, tenderness or abnormalities Neck: Supple, no adenopathy; thyroid symmetric, normal size, no bruits Lungs: Clear to auscultation no wheezing or rhonchi Heart: RRR without murmur, gallop, or rubs. No ectopy Abdomen: Normal abdominal exam, Abdomen soft, non-tender. Bowel sounds normal. No masses, organomegaly Extremities: Extremities normal. No deformities, edema, or skin discoloration. Good capillary refill. Genitourinary: Exam NOT Indicated PVR: NA IMPRESSION/PLAN: 3.7 cm right endophytic renal mass. Normal renal function Pacemaker and on coumadin Multiple bilateral renal cysts Reviewed mass in detail. Discussed biopsy vs partial/radical nephrectomy He is interested in a renal scan and will decide between partial vs radical nephrectomy. Mass is quite endophytic and he is high risk when off blood thinners. He will require a bridge with lovenox but he can resume thinners faster if radical nephrectomy performed. He is aware of the situation. We will need cardiology clearance as well. Check renal scan. I spent 45 minutes in the visit, with more than 50% of the total yyky-lb-trbs time of the visit in counseling / coordination of care. Danielle Fonseca DO MBA Letter to: Smitha Ray MD documented in this encounterProvidence Hospital06-27-2022 History of Present illness Narrative* RT Candy(R) - 02/22/2022 10:00 AM EDT RADIOLOGY SERVICE PROGRESS NOTE SERVICE DATE: 02/22/2022 SERVICE TIME: 1:15 PM PATIENT IDENTITY VERIFICATION COMPLETED USING TWO (2) STANDARD IDENTIFIERS: Name and Date of confirmed by patient verbally FALL SCREENING: Has the patient had 2 falls in the last year or 1 fall with injury or currently using an Ambulatory Assistive Device (Walker, Cane, Wheelchair, Crutches, etc.)? No PATIENT GENDER DATA: .male ALLERGIES: Reviewed and unchanged MEDICATIONS REVIEWED: Yes PATIENT RELEVANT IMPLANT DATA REVIEWED: Not Applicable CREATININE: Creatinine Date Value Ref Range Status 02/04/2021 0.99 0.73 - 1.22 mg/dL Final 01/02/2021 1.09 0.73 - 1.22 mg/dL Final 09/12/2020 0.99 0.73 - 1.22 mg/dL Final eGFR-All Other Races Date Value Ref Range Status 02/04/2021 >60 Final Comment: eGFR (Estimated GFR) Units of measure: mL/min/1.73 meters squared eGFR is derived from the reexpressed MDRD Study equation using the following parameters: serum creatinine, age, gender and race. The creatinine assay has been calibrated to be traceable to IDMS. An eGFR <60 mL/min/1.73m2 for >3 months is consistent with chronic kidney disease. Refer to KDOQI guidelines for clinical interpretation. In patients with unstable renal function, e.g. those with acute kidney injury, the eGFR may not accurately reflect actual GFR. eGFR- Date Value Ref Range Status 02/04/2021 >60 Final P.O.C.T. RESULTS: N/A February 22, [address] PERFORMED: No IV SITE: Ambulatory: A peripheral IV was started in the Right forearm with a Angio cath: 22 gauge. POST EXAM PIV STATUS: Discontinued PROCEDURE TYPE: NM Stress: 10.8mCi [id number] was administered IV for Rest Imaging at 1000 by ty. 30.3 mCi [id number] was administered IV for Stress Imaging at 1150 by ms. ADMINISTRATION TIME: 1150 PATIENT DISCHARGED TO: Ambulatory patient, left [place] department area. A Diagnostic radioactive procedure has taken place, with no further precautions necessary other than routine body substance precautions. More information regarding radiation safety can be found usingthis link: [email or web address] SIGNATURE: RT Candy(R) PATIENT NAME: Alisa Hagan DATE: February 22, 2022 TIME: 1:15 PM PAGER/CONTACT #: documented in this encounterProvidence Hospital06-27-2022 Nurse Note* Molly Chung, Hospitalist Nocturnist Physician - 02/22/2022 10:00 AM EDT Lexiscan stress test explained. Pt had opportunity to ask and have questions answered. Test completed. Report to follow. documented in this encounterProvidence Hospital06-16-2022 Miscellaneous Notes* Telephone Encounter - Mirian Horan MD - 02/11/2022 10:12 AM EDT Mr. Hagan developed a recurrence of atrial fibrillation. I spoke to him on the phone. He reports feeling okay, perhaps a bit more tired than usual, but no palpitation, chest pain, dizziness, or other more significant symptoms. He is anticoagulated. Apparently he was recently noted to have lesions on his kidney and the lung on a CAT scan done at an outside hospital and he is being evaluated for malignancy. At this point we will stay with a rate control strategy and not attempt another cardioversion until it is clear that he is anticoagulation can remain uninterrupted. Mriian Horan MD. documented in this encounterProvidence Hospital06-06-2022 Miscellaneous Notes* Telephone Encounter - Susu Read - 02/01/2022 11:48 AM EDT I HAVE SENT THE REFERRAL TO UROLOGY VIA PORTAL [id number] documented in this encounterProvidence Hospital06-03-2022 History of Present illness Narrative* Rossy Richardson DO - 01/29/2022 3:34 PM EDT Images from the original note were not included. [facility] DEPARTMENT OF VASCULAR SURGERY OUTPATIENT VISIT DATE January 29, 2022 OUTPATIENT VISIT TYPE CONSULTATION SERVICE DATE: 01/29/2022 SERVICE TIME: 3:34 PM PRIMARY CARE PHYSICIAN: Payton Hastings DO REFERRING PROVIDER: Payton Hastings DO [address] [facility] [address] Consult requested for an opinion regarding the evaluation and treatment of the above. My final impression and recommendations will be communicated back to the requesting physician by way of the shared medical record or letter via US mail. CHIEF COMPLAINT: recurrent PE HISTORY OF PRESENT ILLNESS: Vascular consultation at the request of Dr. Payton Hastings. A copy of this consultation note willbe provided to the requesting physician by way of shared Medical record or letter to requesting physician via US mail. Mr. Hagan is a 71 year old male who is seen today for IVC filter evaluation. Patient has a history of multiple unprovoked DVT PEs. The first event occurred about 25 years ago he was treated with therapeutic anticoagulation and eventually taken off after being treated for 6 months. While off anticoagulation he developed a recurrent PE on 2 separate Occasions. Patient states that he has previously had a hypercoagulability work-up that was negative, this is confirmed with results from 2009 in epic. 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 Patient was recently diagnosed with RCC andwas referred here for IVC filter evaluation in the event he needs an operation. Patient has not been evaluated by urology yet and is requesting referral. 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 Horan at [facility] CARDIOVERSION 02/04/2021 Successful conversion from atrial fibrillation to sinus rhythm, by Dr. Horan at [facility] CC PCI CORONARY INTERVENT 2018 CT ANGIOGRAPHY CHEST 11/30/2016 w/contrast ECHO TRANSESOPHAG CONGEN PROBE [facility] I&R 01/02/2021 EF 55%, +LAKSHMI thrombus, +PFO ECHO TRANSESOPHAG CONGEN PROBE [facility] I&R 02/04/2021 EF 50%, mildly dilated RV, moderately dilated LA, no LAKSHMI thrombus, no PFO ECHOCARDIOGRAM 01/04/2006 [facility] EKG 12 LEAD 04/23/2011 [facility] EVENT MONITOR 07/08/2017 24 hour LAPS SURG CHOLECYSTECTOMY W/CHOLANGIOGRAPHY 04/21/2009 PACEMAKER IMPLANT Left 07/22/2020 Dual chamber, [employer], MRI compatible 6 weeks after [facility] STRESS TEST 03/11/2006 [facility] WENDY (TRANSESOPHAGEAL ECHO) 11/30/2016 Nakul/Payton Hastings DO TONSILLECTOMY PRIMARY/SECONDARY AGE 14/> SOCIAL HISTORY: Social History Tobacco Use Smoking status: Never Smoker Smokeless tobacco: Never Used Vaping Use Vaping Use: Never used Substance Use Topics Alcohol use: No Drug use: No FAMILY HISTORY Problem Relation Age of Onset Arthritis Mother Cancer Mother Blood Disease Sister clotting factor DVT Sister Blood Disease Brother clotting ffactor DVT Brother Blood Disease Father clotting factor Diabetes Father Seizures Father MEDICATIONS: finasteride (PROSCAR) 5 mg tablet Take 5 mg by mouth every evening. sildenafil (REVATIO) 20 mg tablet TAKE 1 TABLET TWICE DAILY nebivolol (BYSTOLIC) 5 mg tablet Take 5 mg by mouth once daily. warfarin (COUMADIN) 2 mg tablet Take 1 tablet by mouth once daily. Take 2 mg T, TH, SAT, TUE, --3 mg on M, W, F atorvastatin (LIPITOR) 80 mg tablet Take 0.5 tablets by mouth once daily. aspirin, enteric coated (ECOTRIN LOW STRENGTH) 81 mg EC tablet Take 1 tablet by mouth once daily. cholecalciferol (VITAMIN D) 1,000 unit tab tablet Take 2,000 Units by mouth twice daily. escitalopram 20 mg tablet Take 20 mg by mouth once daily. ALLERGIES: ALLERGIES No Known Allergies REVIEW OF SYSTEM: Constitutional: No weight loss, malaise or fevers. Respiratory: Negative for SOB Cardiovascular: Negative for chest pain or recent [place] Gatrointestinal: Negative for abdominal discomfort Genitourinary: Negative for CKD, + RCC Musculoskeletal: Negative for joint pain or swelling, back pain or muscle pain Endocrine: Negative for DM Hematology/Lymphatic: + recurrent DVT/PE, Neurologic: Negative for stroke Integumentary: Negative for wounds PHYSICAL EXAM: VITALS: BP 132/80 Pulse 100 Resp 18 Ht 5' 9 (1.75m) Wt 265 lb (120.2kg) SpO2 96% BMI 39.12 kg/(m^2). General: Alert and oriented, No acute distress HEENT: EOM Cardiovascular: Pulse regular. Lungs: Normal breath sounds, no wheezes. Abdomen: Soft, non-tender. Extremities: No edema, no chronic skin changes, no ulceration Neurological: Normal cognition and motor skills. No weakness or sensory deficit. Vascular: bilateral radial palpable, Diagnostic tests reviewed for today's visit: CT abd/epl 01/19/22 IMPRESSION: Mr. Hagan is a 71 year old male with history of recurrent unprovoked DVT/PE and recently diagnosed renal cell carcinoma. PLAN and RECOMMENDATIONS: - patient would be a candidate for IVC filter placement prior to any operation for the renal cell carcinoma while coumadin is held in the perioperative period - instructed patient to contact our office once he see urology and has a final operative plan and date. - can place filter within a week before any planned operation Medical Decision Making I spent 45 minutes in the visit, with more than 50% of the total [id number]-xjpw time of the visit in counseling / coordination of care. SIGNATURE: Rossy Richardson DO PATIENT NAME: Alisa Hagan DATE: January 29, 2022 TIME: 3:34 PM documented in this encounterProvidence Hospital06-03-2022 Instructions* Patient Instructions* oRssy Richardson DO - 01/29/2022 2:15 PM EDT You will need an IVC filter prior to any operation or procedure that will require you to hold therapeutic anticoagulation. Once you have a final surgical plan and date we will schedule you for placement of an IVC filter the week prior. documented in this encounterProvidence HospitalEvaluation + Plan note Future Appointments Appointment Date:06/23/2022 10:00:00 AM Scheduled Provider:PAYTON HASTINGS DO Location:[facility] Appointment Type:PC OV Future Scheduled Tests Laboratory* Prostate Specific Antigen 06/24/21 * Lipid Profile 06/24/21 * Microalbumin Level Urine 06/24/21 * Complete Metabolic Panel 06/24/21 Radiology* XR Chest 2 Views (PA & Lateral) 12/23/21 * CT Abdomen and Pelvis w/o contrast 01/19/22 [facility] Evaluation + Plan note Future Appointments Appointment Date:06/23/2022 10:00:00 AM Scheduled Provider:PAYTON HASTINGS DO Location:[facility] Appointment Type:PC OV Future Scheduled Tests Laboratory* Prostate Specific Antigen 06/24/21 * Lipid Profile 06/24/21 * Microalbumin Level Urine 06/24/21 * Complete Metabolic Panel 06/24/21 Radiology* CT Thorax w/o Contrast 01/20/22 * XR Chest 2 Views (PA & Lateral) 12/23/21 [facility] Evaluation + Plan note Future Appointments Appointment Date:07/19/2022 10:45:00 AM Scheduled Provider: Location:[facility] Appointment Type:PC Nurse Protime Appointment Date:09/23/2022 10:30:00 AM Scheduled Provider:SMITHA RAY DO Location:[facility] Appointment Type:PC OV Future Scheduled Tests Radiology* CT Thorax w/o Contrast 01/20/22 * CT Thorax w/o Contrast 02/03/22 * NM Myocardial Spect Rest/Stress 02/03/22 * XR Chest 2 Views (PA & Lateral) 12/23/21 * CT Abdomen and Pelvis w/ contrast 02/03/22 [facility] Evaluation + Plan note Future Appointments Appointment Date:09/29/2022 09:15:00 AM Scheduled Provider: Location:[facility] Appointment Type:PC Nurse Saydaime Appointment Date:12/22/2022 11:00:00 AM Scheduled Provider:SMITHA RAY DO Location:[facility] Appointment Type:PC OV Future Scheduled Tests Laboratory* Hepatic Function Panel 09/23/22 * Prostate Specific Antigen 09/23/22 * Thyroid Stimulating Hormone 09/23/22 * Free T4 09/23/22 * A1C Hemoglobin 09/23/22 * Complete Blood Count 09/23/22 * Lipid Profile 09/23/22 * Microalbumin Level Urine 09/23/22 * PTH, Intact 09/23/22 * Renal Function Panel 09/23/22 * Vitamin D Level 09/23/22 * Ratio Prot/Creat Urine 09/23/22 Radiology* CT Thorax w/o Contrast 01/20/22 * CT Thorax w/o Contrast 02/03/22 * NM Myocardial Spect Rest/Stress 02/03/22 * XR Chest 2 Views (PA & Lateral) 12/23/21 * CT Abdomen and Pelvis w/ contrast 02/03/22 [facility] Evaluation + Plan note Future Appointments Appointment Date:06/08/2023 09:30:00 AM Scheduled Provider:SMITHA RAY DO Location:[facility] Appointment Type:PC Wellness Medicare Appointment Date:07/27/2023 10:00:00 AM Scheduled Provider:SMITHA RAY DO Location:[facility] Appointment Type:PC OV Future Scheduled Tests Radiology* MRI Spine Lumbar w/o Contrast 05/19/23 [facility] Evaluation + Plan note Future Appointments Appointment Date:07/06/2023 09:15:00 AM Scheduled Provider: Location:[facility] Appointment Type:PC Nurse Saydaime Appointment Date:07/27/2023 10:00:00 AM Scheduled Provider:SMITHA RAY DO Location:[facility] Appointment Type:PC OV Future Scheduled Tests Laboratory* Hepatic Function Panel 06/08/23 * Gamma Glutamyl Transferase 06/08/23 Radiology* MRI Spine Lumbar w/o Contrast 05/19/23 [facility] evaluation + Plan note Future Appointments Appointment Date:08/23/2023 10:45:00 AM Scheduled Provider: Location:[facility] Appointment Type:PC Nurse Protime Appointment Date:09/28/2023 10:00:00 AM Scheduled Provider:SMITHA RAY DO Location:[facility] Appointment Type:PC OV Future Scheduled Tests Radiology* MRI Spine Lumbar w/o Contrast 05/19/23 [facility] [employer]uation + Plan note Future Appointments Appointment Date:10/10/2023 03:00:00 PM Scheduled Provider: Location:[facility] Appointment Type:PC Nurse Protime Future Scheduled Tests Radiology* MRI Spine Lumbar w/o Contrast 05/19/23 [facility] evaluation note* Diagnosis Sinus node dysfunction (HCC) Sinoatrial node dysfunction documented in this encounter [facility] note* Diagnosis 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)- Primary Renal cell carcinoma, unspecified laterality (HCC) Chronic pulmonary embolism, unspecified pulmonary embolism type, unspecified whether acute cor pulmonale present (HCC) documented [facility]* Diagnosis Pre-operative cardiovascular examination Pulmonary HTN (HCC) Other chronic pulmonary heart diseases Atrial fibrillation, unspecified type (HCC) documented in this encounter [facility] note* Diagnosis Renal mass, right- Primary Unspecified disorder of kidney and ureter Acquired cyst of kidney Status post placement of cardiac pacemaker Cardiac pacemaker in situ History of DVT (deep vein thrombosis) Personal history of venous thrombosis and embolism Persistent atrial fibrillation (HCC) Atrial fibrillation [facility]* Diagnosis Acquired cyst of kidney Right renal mass Unspecified disorder of kidney and ureter documented [facility]* Diagnosis Preop cardiovascular exam Pre-operative cardiovascular examination Right renal mass Unspecified disorder of kidney and ureter documented in this encounter [facility] note* Diagnosis 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)- Primary Preop examination- Primary Preoperative examination, unspecified Right renal mass Unspecified disorder of kidney and ureter documented in this encounter [facility] note* Diagnosis Pre-operative cardiovascular examination- Primary Status post placement of cardiac pacemaker Cardiac pacemaker in situ Persistent atrial fibrillation (HCC) Atrial fibrillation Pulmonary HTN (HCC) Other chronic pulmonary heart diseases 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) Right renal mass Unspecified disorder of kidney and ureter [facility] Diagnosis Encounter for consultation- Primary Unspecified reason for consultation Right renal mass Unspecified disorder of kidney and ureter [facility]* Diagnosis Pulmonary hypertension (HCC)- Primary Other chronic pulmonary heart diseases [facility] noteNo assessment information availableWWood County [facility] Work Phone: Evaluation note* Diagnosis Confusion- Primary Unspecified psychosis [facility]* Diagnosis Recurrent pulmonary emboli (HCC)- Primary Other pulmonary embolism and infarction [facility]* Diagnosis Persistent atrial fibrillation (HCC)- Primary Atrial fibrillation [facility]* Diagnosis Hospital discharge follow-up- Primary Other follow-up examination Pneumonia of right upper lobe due to infectious organism 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) Pulmonary hypertension (HCC) Other chronic pulmonary heart diseases Renal cell carcinoma of right kidney (HCC) [facility]* Diagnosis Atrial fibrillation, persistent (HCC)- Primary Atrial fibrillation Persistent atrial fibrillation (HCC) Atrial fibrillation LBBB (left bundle branch block) Other left bundle branch block Sinus node dysfunction (HCC) Sinoatrial node dysfunction Coronary artery disease involving [place] heart without angina pectoris, unspecified vessel or lesion type 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 Long-term (current) use of 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 Pacemaker Cardiac pacemaker in situ [facility]* Diagnosis Sinus node dysfunction (HCC)- Primary Sinoatrial node dysfunction [facility]* Diagnosis Pulmonary hypertension (HCC) Other chronic pulmonary heart diseases [facility] Diagnosis Pulmonary hypertension (HCC) Other chronic pulmonary heart diseases [facility]* Diagnosis Renal cell carcinoma of right kidney (HCC)- Primary Intra-abdominal and pelvic swelling, mass and lump, unspecified site Persistent atrial fibrillation (HCC) [facility] Pulmonary hypertension (HCC)- Primary Other chronic pulmonary heart diseases Renal cell carcinoma of right kidney (HCC) History of pulmonary embolism Personal history of pulmonary embolism Antiphospholipid antibody positive Other and unspecified nonspecific immunological findings Persistent atrial fibrillation (HCC) Atrial fibrillation [facility] Diagnosis Intra-abdominal and pelvic swelling, mass and lump, unspecified site [facility] Diagnosis Other specified disorders of kidney and ureter [facility] Diagnosis Renal cell carcinoma of right kidney (HCC)- Primary Persistent atrial fibrillation (HCC) Atrial fibrillation [facility] Diagnosis Other specified disorders of kidney and ureter- Primary Renal cell carcinoma of right kidney (HCC) [facility] Diagnosis Sinoatrial node dysfunction (HCC) [I49.5 (ICD-10-CM)]- Primary Sinoatrial node dysfunction Renal cell carcinoma of right kidney (HCC) [facility] Diagnosis Malignant neoplasm of right kidney, except renal pelvis (HCC)- Primary Malignant neoplasm of kidney, except pelvis [facility] Diagnosis Pulmonary hypertension (HCC)- Primary Other chronic pulmonary heart diseases History of pulmonary embolism Personal history of pulmonary embolism EZIO (obstructive sleep apnea) Obstructive sleep apnea (adult) (pediatric) Renal cell carcinoma of right kidney (HCC) Antiphospholipid antibody positive Other and unspecified nonspecific immunological findings Persistent atrial fibrillation (HCC) Atrial fibrillation Malaise and fatigue Other malaise and fatigue [facility] Diagnosis Sinoatrial node dysfunction (HCC) [I49.5]- Primary Sinoatrial node dysfunction [facility] Diagnosis Permanent atrial fibrillation (HCC)- Primary Atrial fibrillation Malignant neoplasm of right kidney, except renal pelvis (HCC) Malignant neoplasm of kidney, except pelvis [facility] Diagnosis Pulmonary hypertension (HCC)- Primary Other chronic pulmonary heart diseases History of pulmonary embolism Personal history of pulmonary embolism EZIO (obstructive sleep apnea) Obstructive sleep apnea (adult) (pediatric) Persistent atrial fibrillation (HCC) Atrial fibrillation Malaise and fatigue Other malaise and fatigue [facility] Diagnosis Renal cell carcinoma of right kidney (HCC) Pneumonia of right upper lobe due to infectious organism Presence of IVC filter Other postprocedural status [facility]* Diagnosis Persistent atrial fibrillation (HCC)- Primary Atrial fibrillation Sinus node dysfunction (HCC) Sinoatrial node dysfunction Pacemaker Cardiac pacemaker in situ LBBB (left bundle branch block) Other 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 bundle branch block 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 Long-term (current) use of 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 Presence of IVC filter Other postprocedural status [facility]* Diagnosis Presence of IVC filter- Primary Other postprocedural status Other acute pulmonary embolism without acute cor pulmonale (HCC) Personal history of DVT (deep vein thrombosis) Personal history of venous thrombosis and embolism Presence of IVC filter Other postprocedural status documented [facility] encounter [facility]* Diagnosis Presence of IVC filter [Z95.828]- Primary Other postprocedural status Preop testing Preoperative examination, unspecified Type 2 diabetes mellitus without complication, without long-term current use of insulin (HCC) History of DVT (deep vein thrombosis) Personal history of venous thrombosis and embolism Persistent atrial fibrillation (HCC) Atrial fibrillation Recurrent pulmonary emboli (HCC) Other pulmonary embolism and infarction Mixed hyperlipidemia Coronary artery disease involving [place] heart without angina pectoris, unspecified vessel or lesion type Primary hypertension Unspecified essential hypertension Presence of cardiac pacemaker Cardiac pacemaker in situ Stage 3 chronic kidney disease, unspecified whether stage 3a or 3b CKD (HCC) Pulmonary HTN (HCC) Other chronic pulmonary heart diseases Hypercoagulable state (HCC) Primary hypercoagulable state Presence of IVC filter Other postprocedural status documented in this encounter [facility] note* Diagnosis Antiphospholipid antibody syndrome (HCC)- Primary Primary hypercoagulable state Hypercoagulable state (HCC) Primary hypercoagulable state CTEPH (chronic thromboembolic pulmonary hypertension) (HCC) Other chronic pulmonary heart diseases Right kidney mass Unspecified disorder of kidney and ureter Kidney hematoma, unspecified laterality, initial encounter documented in this encounter [facility] note* Diagnosis Antiphospholipid antibody syndrome (HCC)- Primary Primary hypercoagulable state Hypercoagulable state (HCC) Primary hypercoagulable state CTEPH (chronic thromboembolic pulmonary hypertension) (HCC) Other chronic pulmonary heart diseases Kidney hematoma, unspecified laterality, subsequent encounter Stage 3b chronic kidney disease (HCC) [facility] Diagnosis Sinus node dysfunction (HCC)- Primary Sinoatrial node dysfunction [facility] Diagnosis Antiphospholipid antibody syndrome (HCC)- Primary Primary hypercoagulable state Hypercoagulable state (HCC) Primary hypercoagulable state CTEPH (chronic thromboembolic pulmonary hypertension) (HCC) Other chronic pulmonary heart diseases Stage 3b chronic kidney disease (HCC) Kidney hematoma, unspecified laterality, subsequent encounter Chronic anticoagulation Long-term (current) use of 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 Obesity, Class III, BMI 40-49.9 (morbid obesity) (HCC) Morbid obesity [facility] Diagnosis Antiphospholipid antibody syndrome (HCC)- Primary Primary hypercoagulable state Hypercoagulable state (HCC) Primary hypercoagulable state CTEPH (chronic thromboembolic pulmonary hypertension) (HCC) Other chronic pulmonary heart diseases Stage 3b chronic kidney disease (HCC) [facility] Diagnosis Sinoatrial node dysfunction (HCC) [I49.5]- Primary Sinoatrial node dysfunction [facility] Diagnosis Presence of IVC filter [Z95.828]- Primary Other postprocedural status Preop testing Preoperative examination, unspecified Type 2 diabetes mellitus without complication, without long-term current use of insulin (HCC) History of DVT (deep vein thrombosis) Personal history of venous thrombosis and embolism Persistent atrial fibrillation (HCC) Atrial fibrillation Recurrent pulmonary emboli (HCC) Other pulmonary embolism and infarction Mixed hyperlipidemia Coronary artery disease involving [place] heart without angina pectoris, unspecified vessel or lesion type Primary hypertension Unspecified essential hypertension Presence of cardiac pacemaker Cardiac pacemaker in situ Stage 3 chronic kidney disease, unspecified whether stage 3a or 3b CKD (HCC) Pulmonary HTN (HCC) Other chronic pulmonary heart diseases Hypercoagulable state (HCC) Primary hypercoagulable state Other specified injuries of unspecified lower leg, initial encounter [facility] Presence of IVC filter [Z95.828]- Primary Other postprocedural status Preop testing Preoperative examination, unspecified Type 2 diabetes mellitus without complication, without long-term current use of insulin (HCC) History of DVT (deep vein thrombosis) Personal history of venous thrombosis and embolism Persistent atrial fibrillation (HCC) Atrial fibrillation Recurrent pulmonary emboli (HCC) Other pulmonary embolism and infarction Mixed hyperlipidemia Coronary artery disease involving [place] heart without angina pectoris, unspecified vessel or lesion type Primary hypertension Unspecified essential hypertension Presence of cardiac pacemaker Cardiac pacemaker in situ Stage 3 chronic kidney disease, unspecified whether stage 3a or 3b CKD (HCC) Pulmonary HTN (HCC) Other chronic pulmonary heart diseases Hypercoagulable state (HCC) Primary hypercoagulable state Other specified injuries of unspecified lower leg, initial encounter- Primary Antiphospholipid antibody syndrome (HCC) Primary hypercoagulable state Hypercoagulable state (HCC) Primary hypercoagulable state CTEPH (chronic thromboembolic pulmonary hypertension) (HCC) Other chronic pulmonary heart diseases Stage 3b chronic kidney disease (HCC) Other specified injuries of unspecified lower leg, initial encounter [facility] Diagnosis Presence of IVC filter [Z95.828]- Primary Other postprocedural status Preop testing Preoperative examination, unspecified Type 2 diabetes mellitus without complication, without long-term current use of insulin (HCC) History of DVT (deep vein thrombosis) Personal history of venous thrombosis and embolism Persistent atrial fibrillation (HCC) Atrial fibrillation Recurrent pulmonary emboli (HCC) Other pulmonary embolism and infarction Mixed hyperlipidemia Coronary artery disease involving [place] heart without angina pectoris, unspecified vessel or lesion type Primary hypertension Unspecified essential hypertension Presence of cardiac pacemaker Cardiac pacemaker in situ Stage 3 chronic kidney disease, unspecified whether stage 3a or 3b CKD (HCC) Pulmonary HTN (HCC) Other chronic pulmonary heart diseases Hypercoagulable state (HCC) Primary hypercoagulable state Sinoatrial node dysfunction (HCC)- Primary Sinoatrial node dysfunction [facility] Diagnosis Presence of IVC filter [Z95.828]- Primary Other postprocedural status Preop testing Preoperative examination, unspecified Type 2 diabetes mellitus without complication, without long-term current use of insulin (HCC) History of DVT (deep vein thrombosis) Personal history of venous thrombosis and embolism Persistent atrial fibrillation (HCC) Atrial fibrillation Recurrent pulmonary emboli (HCC) Other pulmonary embolism and infarction Mixed hyperlipidemia Coronary artery disease involving [place] heart without angina pectoris, unspecified vessel or lesion type Primary hypertension Unspecified essential hypertension Presence of cardiac pacemaker Cardiac pacemaker in situ Stage 3 chronic kidney disease, unspecified whether stage 3a or 3b CKD (HCC) Pulmonary HTN (HCC) Other chronic pulmonary heart diseases Hypercoagulable state (HCC) Primary hypercoagulable state Acute cough- Primary Sinobronchitis Unspecified sinusitis (chronic) Acute cough [facility]* Diagnosis Presence of IVC filter [Z95.828]- Primary Other postprocedural status Preop testing Preoperative examination, unspecified Type 2 diabetes mellitus without complication, without long-term current use of insulin (HCC) History of DVT (deep vein thrombosis) Personal history of venous thrombosis and embolism Persistent atrial fibrillation (HCC) Atrial fibrillation Recurrent pulmonary emboli (HCC) Other pulmonary embolism and infarction Mixed hyperlipidemia Coronary artery disease involving [place] heart without angina pectoris, unspecified vessel or lesion type Primary hypertension Unspecified essential hypertension Presence of cardiac pacemaker Cardiac pacemaker in situ Stage 3 chronic kidney disease, unspecified whether stage 3a or 3b CKD (HCC) Pulmonary HTN (HCC) Other chronic pulmonary heart diseases Hypercoagulable state (HCC) Primary hypercoagulable state Acute cough documented in this encounter [facility] note* Diagnosis Presence of IVC filter [Z95.828]- Primary Other postprocedural status Preop testing Preoperative examination, unspecified Type 2 diabetes mellitus without complication, without long-term current use of insulin (HCC) History of DVT (deep vein thrombosis) Personal history of venous thrombosis and embolism Persistent atrial fibrillation (HCC) Atrial fibrillation Recurrent pulmonary emboli (HCC) Other pulmonary embolism and infarction Mixed hyperlipidemia Coronary artery disease involving [place] heart without angina pectoris, unspecified vessel or lesion type Primary hypertension Unspecified essential hypertension Presence of cardiac pacemaker Cardiac pacemaker in situ Stage 3 chronic kidney disease, unspecified whether stage 3a or 3b CKD (HCC) Pulmonary HTN (HCC) Other chronic pulmonary heart diseases Hypercoagulable state (HCC) Primary hypercoagulable state Acute cough- Primary URI, acute Acute upper respiratory infections of unspecified site documented in this encounter [facility] note* Diagnosis Presence of IVC filter [Z95.828]- Primary Other postprocedural status Preop testing Preoperative examination, unspecified Type 2 diabetes mellitus without complication, without long-term current use of insulin (HCC) History of DVT (deep vein thrombosis) Personal history of venous thrombosis and embolism Persistent atrial fibrillation (HCC) Atrial fibrillation Recurrent pulmonary emboli (HCC) Other pulmonary embolism and infarction Mixed hyperlipidemia Coronary artery disease involving [place] heart without angina pectoris, unspecified vessel or lesion type Primary hypertension Unspecified essential hypertension Presence of cardiac pacemaker Cardiac pacemaker in situ Stage 3 chronic kidney disease, unspecified whether stage 3a or 3b CKD (HCC) Pulmonary HTN (HCC) Other chronic pulmonary heart diseases Hypercoagulable state (HCC) Primary hypercoagulable state Sinus node dysfunction (HCC) [I49.5]- Primary Sinoatrial node dysfunction documented in this encounter [facility] note* Diagnosis Presence of IVC filter [Z95.828]- Primary Other postprocedural status Preop testing Preoperative examination, unspecified Type 2 diabetes mellitus without complication, without long-term current use of insulin (HCC) History of DVT (deep vein thrombosis) Personal history of venous thrombosis and embolism Persistent atrial fibrillation (HCC) Atrial fibrillation Recurrent pulmonary emboli (HCC) Other pulmonary embolism and infarction Mixed hyperlipidemia Coronary artery disease involving [place] heart without angina pectoris, unspecified vessel or lesion type Primary hypertension Unspecified essential hypertension Presence of cardiac pacemaker Cardiac pacemaker in situ Stage 3 chronic kidney disease, unspecified whether stage 3a or 3b CKD (HCC) Pulmonary HTN (HCC) Other chronic pulmonary heart diseases Hypercoagulable state (HCC) Primary hypercoagulable state Pulmonary hypertension (HCC)- Primary Other chronic pulmonary heart diseases Hospital discharge follow-up Other follow-up examination Persistent atrial fibrillation (HCC) Atrial fibrillation Chronic congestive heart failure, unspecified heart failure type (HCC) [facility] Diagnosis Presence of IVC filter [Z95.828]- Primary Other postprocedural status Preop testing Preoperative examination, unspecified Type 2 diabetes mellitus without complication, without long-term current use of insulin (HCC) History of DVT (deep vein thrombosis) Personal history of venous thrombosis and embolism Persistent atrial fibrillation (HCC) Atrial fibrillation Recurrent pulmonary emboli (HCC) Other pulmonary embolism and infarction Mixed hyperlipidemia Coronary artery disease involving [place] heart without angina pectoris, unspecified vessel or lesion type Primary hypertension Unspecified essential hypertension Presence of cardiac pacemaker Cardiac pacemaker in situ Stage 3 chronic kidney disease, unspecified whether stage 3a or 3b CKD (HCC) Pulmonary HTN (HCC) Other chronic pulmonary heart diseases Hypercoagulable state (HCC) Primary hypercoagulable state Persistent atrial fibrillation (HCC)- Primary Atrial fibrillation Sinus node dysfunction (HCC) Sinoatrial node dysfunction LBBB (left bundle branch block) Other left bundle branch block Pacemaker Cardiac pacemaker in situ Chronic systolic congestive heart failure (HCC) Chronic systolic heart failure 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 Long-term (current) use of 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 At risk for stroke Other specified personal history presenting hazards to health History of heart artery stent Postsurgical percutaneous transluminal coronary angioplasty status documented in this encounter [facility] note* Diagnosis Presence of IVC filter [Z95.828]- Primary Other postprocedural status Preop testing Preoperative examination, unspecified Type 2 diabetes mellitus without complication, without long-term current use of insulin (HCC) History of DVT (deep vein thrombosis) Personal history of venous thrombosis and embolism Persistent atrial fibrillation (HCC) Atrial fibrillation Recurrent pulmonary emboli (HCC) Other pulmonary embolism and infarction Mixed hyperlipidemia Coronary artery disease involving [place] heart without angina pectoris, unspecified vessel or lesion type Primary hypertension Unspecified essential hypertension Presence of cardiac pacemaker Cardiac pacemaker in situ Stage 3 chronic kidney disease, unspecified whether stage 3a or 3b CKD (HCC) Pulmonary HTN (HCC) Other chronic pulmonary heart diseases Hypercoagulable state (HCC) Primary hypercoagulable state Antiphospholipid antibody syndrome (HCC)- Primary Primary hypercoagulable state Stage 3b chronic kidney disease (HCC) Hypercoagulable state (HCC) Primary hypercoagulable state CTEPH (chronic thromboembolic pulmonary hypertension) (HCC) Other chronic pulmonary heart diseases Chronic anticoagulation Long-term (current) use of 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 Coronary artery disease involving [place] coronary artery of [place] heart without angina pectoris- Primary Persistent atrial fibrillation (HCC) Atrial fibrillation Primary hypertension Unspecified essential hypertension Mixed hyperlipidemia Atherosclerosis of aorta Pulmonary HTN (HCC) Other chronic pulmonary heart diseases documented in this encounter [facility] note* Diagnosis Presence of IVC filter [Z95.828]- Primary Other postprocedural status Preop testing Preoperative examination, unspecified Type 2 diabetes mellitus without complication, without long-term current use of insulin (HCC) History of DVT (deep vein thrombosis) Personal history of venous thrombosis and embolism Persistent atrial fibrillation (HCC) Atrial fibrillation Recurrent pulmonary emboli (HCC) Other pulmonary embolism and infarction Mixed hyperlipidemia Coronary artery disease involving [place] heart without angina pectoris, unspecified vessel or lesion type Primary hypertension Unspecified essential hypertension Presence of cardiac pacemaker Cardiac pacemaker in situ Stage 3 chronic kidney disease, unspecified whether stage 3a or 3b CKD (HCC) Pulmonary HTN (HCC) Other chronic pulmonary heart diseases Hypercoagulable state (HCC) Primary hypercoagulable state Coronary artery disease involving [place] coronary artery of [place] heart without angina pectoris- Primary Persistent atrial fibrillation (HCC) Atrial fibrillation Primary hypertension Unspecified essential hypertension Mixed hyperlipidemia Atherosclerosis of aorta Pulmonary HTN (HCC) Other chronic pulmonary heart diseases [facility] Diagnosis Presence of IVC filter [Z95.828]- Primary Other postprocedural status Preop testing Preoperative examination, unspecified Type 2 diabetes mellitus without complication, without long-term current use of insulin (HCC) History of DVT (deep vein thrombosis) Personal history of venous thrombosis and embolism Persistent atrial fibrillation (HCC) Atrial fibrillation Recurrent pulmonary emboli (HCC) Other pulmonary embolism and infarction Mixed hyperlipidemia Coronary artery disease involving [place] heart without angina pectoris, unspecified vessel or lesion type Primary hypertension Unspecified essential hypertension Presence of cardiac pacemaker Cardiac pacemaker in situ Stage 3 chronic kidney disease, unspecified whether stage 3a or 3b CKD (HCC) Pulmonary HTN (HCC) Other chronic pulmonary heart diseases Hypercoagulable state (HCC) Primary hypercoagulable state LBBB (left bundle branch block)- Primary Other left bundle branch block Chronic systolic congestive heart failure (HCC) Chronic systolic heart failure History of heart artery stent Postsurgical percutaneous transluminal coronary angioplasty status [facility] Diagnosis Presence of IVC filter [Z95.828]- Primary Other postprocedural status Preop testing Preoperative examination, unspecified Type 2 diabetes mellitus without complication, without long-term current use of insulin (HCC) History of DVT (deep vein thrombosis) Personal history of venous thrombosis and embolism Persistent atrial fibrillation (HCC) Atrial fibrillation Recurrent pulmonary emboli (HCC) Other pulmonary embolism and infarction Mixed hyperlipidemia Coronary artery disease involving [place] heart without angina pectoris, unspecified vessel or lesion type Primary hypertension Unspecified essential hypertension Presence of cardiac pacemaker Cardiac pacemaker in situ Stage 3 chronic kidney disease, unspecified whether stage 3a or 3b CKD (HCC) Pulmonary HTN (HCC) Other chronic pulmonary heart diseases Hypercoagulable state (HCC) Primary hypercoagulable state Pulmonary hypertension (HCC) Other chronic pulmonary heart diseases [facility] Diagnosis Presence of IVC filter [Z95.828]- Primary Other postprocedural status Preop testing Preoperative examination, unspecified Type 2 diabetes mellitus without complication, without long-term current use of insulin (HCC) History of DVT (deep vein thrombosis) Personal history of venous thrombosis and embolism Persistent atrial fibrillation (HCC) Atrial fibrillation Recurrent pulmonary emboli (HCC) Other pulmonary embolism and infarction Mixed hyperlipidemia Coronary artery disease involving [place] heart without angina pectoris, unspecified vessel or lesion type Primary hypertension Unspecified essential hypertension Presence of cardiac pacemaker Cardiac pacemaker in situ Stage 3 chronic kidney disease, unspecified whether stage 3a or 3b CKD (HCC) Pulmonary HTN (HCC) Other chronic pulmonary heart diseases Hypercoagulable state (HCC) Primary hypercoagulable state Pulmonary hypertension (HCC)- Primary Other chronic pulmonary heart diseases Lung nodules Other nonspecific abnormal finding of lung field Lymphadenopathy Enlargement of lymph nodes HFrEF (heart failure with reduced ejection fraction) (HCC) Heart failure, unspecified Personal history of malignant neoplasm of kidney Shortness of breath Personal history of pulmonary embolism Antiphospholipid antibody syndrome (HCC) Primary hypercoagulable state [facility] Diagnosis Presence of IVC filter [Z95.828]- Primary Other postprocedural status Preop testing Preoperative examination, unspecified Type 2 diabetes mellitus without complication, without long-term current use of insulin (HCC) History of DVT (deep vein thrombosis) Personal history of venous thrombosis and embolism Persistent atrial fibrillation (HCC) Atrial fibrillation Recurrent pulmonary emboli (HCC) Other pulmonary embolism and infarction Mixed hyperlipidemia Coronary artery disease involving [place] heart without angina pectoris, unspecified vessel or lesion type Primary hypertension Unspecified essential hypertension Presence of cardiac pacemaker Cardiac pacemaker in situ Stage 3 chronic kidney disease, unspecified whether stage 3a or 3b CKD (HCC) Pulmonary HTN (HCC) Other chronic pulmonary heart diseases Hypercoagulable state (HCC) Primary hypercoagulable state LBBB (left bundle branch block)- Primary Other left bundle branch block Chronic systolic congestive heart failure (HCC) Chronic systolic heart failure Pacemaker Cardiac pacemaker in situ [facility] Diagnosis Presence of IVC filter [Z95.828]- Primary Other postprocedural status Preop testing Preoperative examination, unspecified Type 2 diabetes mellitus without complication, without long-term current use of insulin (HCC) History of DVT (deep vein thrombosis) Personal history of venous thrombosis and embolism Persistent atrial fibrillation (HCC) Atrial fibrillation Recurrent pulmonary emboli (HCC) Other pulmonary embolism and infarction Mixed hyperlipidemia Coronary artery disease involving [place] heart without angina pectoris, unspecified vessel or lesion type Primary hypertension Unspecified essential hypertension Presence of cardiac pacemaker Cardiac pacemaker in situ Stage 3 chronic kidney disease, unspecified whether stage 3a or 3b CKD (HCC) Pulmonary HTN (HCC) Other chronic pulmonary heart diseases Hypercoagulable state (HCC) Primary hypercoagulable state Renal cell carcinoma of right kidney (HCC)- Primary Malignant neoplasm of right kidney, except renal pelvis (HCC) Malignant neoplasm of kidney, except pelvis Stage 3 chronic kidney disease, unspecified whether stage 3a or 3b CKD (HCC) [facility] Diagnosis Presence of IVC filter [Z95.828]- Primary Other postprocedural status Preop testing Preoperative examination, unspecified Type 2 diabetes mellitus without complication, without long-term current use of insulin (HCC) History of DVT (deep vein thrombosis) Personal history of venous thrombosis and embolism Persistent atrial fibrillation (HCC) Atrial fibrillation Recurrent pulmonary emboli (HCC) Other pulmonary embolism and infarction Mixed hyperlipidemia Coronary artery disease involving [place] heart without angina pectoris, unspecified vessel or lesion type Primary hypertension Unspecified essential hypertension Presence of cardiac pacemaker Cardiac pacemaker in situ Stage 3 chronic kidney disease, unspecified whether stage 3a or 3b CKD (HCC) Pulmonary HTN (HCC) Other chronic pulmonary heart diseases Hypercoagulable state (HCC) Primary hypercoagulable state Stage 3 chronic kidney disease, unspecified whether stage 3a or 3b CKD (HCC)- Primary documented in this encounter [facility] note* Diagnosis Presence of IVC filter [Z95.828]- Primary Other postprocedural status Preop testing Preoperative examination, unspecified Type 2 diabetes mellitus without complication, without long-term current use of insulin (HCC) History of DVT (deep vein thrombosis) Personal history of venous thrombosis and embolism Persistent atrial fibrillation (HCC) Atrial fibrillation Recurrent pulmonary emboli (HCC) Other pulmonary embolism and infarction Mixed hyperlipidemia Coronary artery disease involving [place] heart without angina pectoris, unspecified vessel or lesion type Primary hypertension Unspecified essential hypertension Presence of cardiac pacemaker Cardiac pacemaker in situ Stage 3 chronic kidney disease, unspecified whether stage 3a or 3b CKD (HCC) Pulmonary HTN (HCC) Other chronic pulmonary heart diseases Hypercoagulable state (HCC) Primary hypercoagulable state Persistent atrial fibrillation (HCC)- Primary Atrial fibrillation LBBB (left bundle branch block) 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 bundle 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 block 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 Long-term (current) use of 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 Pacemaker Cardiac pacemaker in situ Sinus node dysfunction (HCC) Sinoatrial node dysfunction Cardiomyopathy, nonischemic (HCC) Other primary cardiomyopathies documented in this encounter [facility] course Narrative No data available for this section [facility] Hospital Discharge instructions No data available for this section [facility] Progress note No data available for this section [facility] Reason for referral (narrative)* Diagnostic Procedure Only (Routine) - Authorized Specialty Diagnoses / Procedures Referred By Contac t Referred To Contact MOLECULAR & FUNCTIONAL IMAGING Diagnoses Acquired cyst of kidney Procedures NM RENAL FLOW/FXN W PHARM KIDNEY IMG MORPHOLOGY VASCULAR FLOW 1 W/RX Danielle Fonseca, DO [address] [place] [address] Molecular & Functional Imaging [address] [place] [address] Referral ID Status Reason Start Date Expiration Date Visits Requested Visits Authorized [id number] Authorized Auto-Generat ed Referral 03/09/2022 04/08/2023 1 1 [facility] for referral (narrative)* Diagnostic Procedure Only (Routine) - Closed Specialty Diagnoses / Procedures Referred By Contac t Referred To Contact MOLECULAR & FUNCTIONAL IMAGING Diagnoses Acquired cyst of kidney Procedures NM RENAL FLOW/FXN W PHARM KIDNEY IMG MORPHOLOGY VASCULAR FLOW 1 W/RX Danielle Fonseca, DO [address] [place] [address] Molecular & Functional Imaging [address] [place] [address] Referral ID Status Reason Start Date Expiration Date V isits Requested Visits Authorized [id number] Closed Auto-Generate d Referral 03/09/2022 04/08/2023 1 1 [facility] for referral (narrative)* Outpatient Procedure (Routine) - Pending Review Specialty Diagnoses / Procedures Referred By Contac t Referred To Contact [facility] Diagnoses Pulmonary hypertension (HCC) Procedures SIX MINUTE WALK CARDIOPULMONARY EXERCISE STRESS Dwight Pittman MD [address] [place] [address] [place] [address] Referral ID Status Reason Start Date Expiration Date Visits Requested Visits Authorized [id number] Pending Review Auto-Generat ed Referral 05/31/2022 06/30/2023 1 1 * Outpatient Procedure (Routine) - Pending Review Specialty Diagnoses / Procedures Referred By Contac t Referred To [facility] Diagnoses Pulmonary hypertension (HCC) Procedures SPIROMETRY - BASELINE AND POST DILATOR BRNCDILAT RSPSE SPMTRY PRE&POST-BRNCDILAT Dwight Covington MD [address] [place] [address] [place] [address] Referral ID Status Reason Start Date Expiration Date Visits Requested Visits Authorized [id number] Pending Review Auto-Generat ed Referral 05/31/2022 06/30/2023 1 1 [facility] for referral (narrative)* Outpatient Procedure (Routine) - Authorized Specialty Diagnoses / Procedures Referred By Contac t Referred To [facility] VASCULAR [facility] Diagnoses Pulmonary hypertension (HCC) Procedures ECHO ECHO TTHRC R-T 2D W/WOM-MODE COMPL SPEC&COLR D Niharika Frias MD [address] [place] [address] [facility] Vascular [place] [id number] Referral ID Status Reason Start Date Expiration Date Visits Requested Visits Authorized [id number] Authorized Auto-Generat ed Referral 06/22/2024 1 1 [facility] for referral (narrative)* Outpatient Procedure (Routine) - Pending Review Specialty Diagnoses / Procedures Referred By Contac t Referred To [facility]PIRATORY [facility] Diagnoses Persistent atrial fibrillation (HCC) Procedures LUNG VOLUMES VitMirian wolfe MD [address] [place] [address] [address] Referral ID Status Reason Start Date Expiration Date Visits Requested Visits Authorized [id number] Pending Review Auto-Generat ed Referral 08/01/2023 08/30/2024 1 1 * Outpatient Procedure (Routine) - Pending Review Specialty Diagnoses / Procedures Referred By Contac t Referred To [facility] RESPIRATORY [facility] Diagnoses Persistent atrial fibrillation (HCC) Procedures LUNG DIFFUSION CAPACITY (DLCO) DIFFUSING CAPACITY Mirian Horan MD [address] [place] [id number] [place] [id number] [place] [address] Referral ID Status Reason Start Date Expiration Date Visits Requested Visits Authorized [id number] Pending Review Auto-Generat ed Referral 08/01/2023 08/30/2024 1 1 * Outpatient Procedure (Routine) - Pending Review Specialty Diagnoses / Procedures Referred By Contac t Referred To [facility]ORY [facility] Diagnoses Persistent atrial fibrillation (HCC) Procedures SPIROMETRY BASELINE ONLY SPMTRY W/VC EXPIRATORY RODRIGUEZ W/WO MXML VOL VNTJ Mirian Horan MD [address] [place] [address] [address] Referral ID Status Reason Start Date Expiration Date Visits Requested Visits Authorized [id number] Pending Review Auto-Generat ed Referral 08/01/2023 08/30/2024 1 1 [facility] for visit Narrative* Diagnostic Procedure Only (Routine) - Closed Specialty Diagnoses / Procedures Referred By Violeta iniguez Referred To Contact MOLECULAR & FUNCTIONAL IMAGING Diagnoses Acquired cyst of kidney Procedures NM RENAL FLOW/FXN W PHARM KIDNEY IMG MORPHOLOGY VASCULAR FLOW 1 W/RX Danielle Fonseca DO [address] [place] [address] Molecular & Functional Imaging [address] [place] [address] Referral ID Status Reason Start Date Expiration Date V isits Requested Visits Authorized [id number] Closed Auto-Generate d Referral 03/09/2022 04/08/2023 1 1 [facility] Procedure (Routine) - Closed Specialty Diagnoses / Procedures Referred By Violeta iniguez Referred To Contact [facility] Diagnoses Pulmonary hypertension (HCC) Procedures ECHO ECHO TTHRC R-T 2D W/WOM-MODE COMPL SPEC&COLR D Jesenia Arzate M, SEASONAL CLERK.ELECTRIC ARC WELDER [address] [place] [address] Phone: tel: fax: [facility] [address] [place] [address] Referral ID Status Reason Start Date Expiration Date V isits Requested Visits Authorized [id number] Closed Auto-Generate d Referral 02/26/2025 01/03/2026 1 1 [facility] Summary Purpose Family History No Family History Records FoundNo Family History Records Found No data available for this section No data available for this section No data available for this section No Family History Records Found No data available for this section No Family History Records FoundNo Family History Records FoundNo Family History Records FoundNo Family History Records Found Advance Directives No Advanced Directives Records FoundDocuments on File Type Date Recorded 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 Advance Directive(s) 02/04/2021 7:53 AM Advance Directive(s) 01/02/2021 9:18 AM Advance Directive(s) 09/12/2020 7:49 AM Advance Directive(s) 07/22/2020 10:17 AM Advance Directive(s) 05/25/2018 6:48 AM Documents on File Type Date Recorded 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 Advance Directive(s) 02/04/2021 7:53 AM Advance Directive(s) 01/02/2021 9:18 AM Advance Directive(s) 09/12/2020 7:49 AM Advance Directive(s) 07/22/2020 10:17 AM Advance Directive(s) 05/25/2018 6:48 AM Advance Directive Response Recorded Date/ Time Living Will No June 05 2:16pm Power of Medical Transcription Radiology No June 05 2 022 2:16pm Documents on File Type Date Recorded 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 Advance Directive(s) 06/30/2022 2:36 PM Advance Directive(s) 06/30/2022 2:37 PM Documents on File Type Date Recorded 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 Advance Directive(s) 06/30/2022 2:36 PM Advance Directive(s) 06/30/2022 2:37 PM Documents on File Type Date Recorded 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 Advance Directive(s) 06/30/2022 2:37 PM Advance Directive(s) 06/30/2022 2:36 PM Documents on File Type Date Recorded 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 Advance Directive(s) 06/30/2022 2:37 PM Advance Directive(s) 06/30/2022 2:36 PM Advance Directive Response Recorded Date/ Time Living Will Yes August 18, 2 023 10:24pm Power of Medical Transcription Radiology Yes August 18, 2023 10:24pm Name of Medical Power of Medical Transcription Radiology Daughter Suzan Boyd August 18, 2023 10:24pm Date Activated Date Inactivated Comments 02/01/2025 5:48 PM Question Answer Comments Full Code Order Discussed With: Patient Date Activated Date Inactivated Comments 02/01/2025 5:48 PM 02/04/2025 8:36 PM Date Activated Date Inactivated Comments 02/01/2025 5:48 PM 02/04/2025 8:36 PM Question Answer Comments Full Code Order Discussed With: Patient Reason for Referral Specialty Diagnoses / Procedures Referred By Contac t Referred To Contact CT IMAGING Diagnoses Other specified injuries of unspecified lower leg, initial encounter Procedures CT COMPLETE LEG WO IVCON RIGHT HIP TO TOES CT LOWER EXTREMITY W/O CONTRAST MATERIAL Deena Waggoner MD [address] [place] [address] [place] [address] Referral ID Status Reason Start Date Expiration Date V isits Requested Visits Authorized [id number] Closed Auto-Generate d Referral 06/04/2024 07/04/2025 1 1 Specialty Diagnoses / Procedures Referred By Contac t Referred To Contact Vascular Surgery Diagnoses Pulmonary hypertension (HCC) History of pulmonary embolism Procedures CONSULT TO VASCULAR SURGERY OFFICE/OUTPATIENT NEW HIGH MDM 60-74 MINUTES Niharika Frias MD [address] [place] [address] Rossy Richardson, [address] [place] [address] Referral ID Status Reason Start Date Expiration Date Visits Requested Visits Authorized [id number] Authorized PCP Requested Referral 02/28/2023 02/28/2024 1 1 Specialty Diagnoses / Procedures Referred By Contac t Referred To Contact MR IMAGING Diagnoses Malignant neoplasm of right kidney, except renal pelvis (HCC) Procedures MRI ABDOMEN WO/W IVCON MRI ABDOMEN W/O & W/CONTRAST MATERIAL Danielle Fonseca, [address] [place] [address] Mr Imaging Referral ID Status Reason Start Date Expiration Date Visits Requested Visits Authorized [id number] Pending Review Auto-Generat ed Referral 12/21/2022 01/20/2024 1 1 Specialty Diagnoses / Procedures Referred By Contac t Referred To Contact MR IMAGING Diagnoses Other specified disorders of kidney and ureter Procedures MRI ABDOMEN WO/W IVCON MRI ABDOMEN W/O & W/CONTRAST MATERIAL Danielle Fonseca, DO [address] [place] [id number] Mr Imaging Referral ID Status Reason Start Date Expiration Date V isits Requested Visits Authorized [id number] Closed Auto-Generate d Referral 11/06/2022 12/06/2023 1 1 Specialty Diagnoses / Procedures Referred By Contac t Referred To Contact MR IMAGING Diagnoses Intra-abdominal and pelvic swelling, mass and lump, unspecified site Procedures MRI ABDOMEN WO/W IVCON MRI ABDOMEN W/O & W/CONTRAST MATERIAL Danielle Fonseca, DO [address] [place] [address] Mr Imaging Referral ID Status Reason Start Date Expiration Date Visits Requested Visits Authorized [id number] Pending Review Auto-Generat ed Referral 10/05/2022 11/04/2023 1 1 Specialty Diagnoses / Procedures Referred By Contac t Referred To Contact CT IMAGING Diagnoses Pneumonia of right upper lobe due to infectious organism Procedures CT CHEST WO IVCON DIAGNOSTIC COMPUTED TOMOGRAPHY THORAX W/O CNTRST Jesenia Arzate, FLACO.ELECTRIC ARC WELDER [address] [place] [address] Ct Imaging Referral ID Status Reason Start Date Expiration Date Visits Requested Visits Authorized [id number] Authorized Auto-Generat ed Referral 07/29/2022 08/28/2023 1 1 Specialty Diagnoses / Procedures Referred By Contac t Referred To Contact Diagnoses Recurrent pulmonary emboli (HCC) Procedures CONSULT TO [facility] Deena Waggoner MD [address] [place] [address] Referral ID Status Reason Start Date Expiration Date Visits Requested Visits Authorized [id number] Ref Not Required PCP Requested Referral 07/04/2022 10/02/2022 1 1 Specialty Diagnoses / Procedures Referred By Contac t Referred To Contact Niharika Frias MD [address] [place] [address] Referral ID Status Reason Start Date Expiration Date V isits Requested Visits Authorized [id number] Pending Review 1 1 Specialty Diagnoses / Procedures Referred By Contac t Referred To Contact Urology Diagnoses Renal cell carcinoma, unspecified laterality (HCC) Procedures CONSULT TO UROLOGY OFFICE/OUTPATIENT [facility] 60-74 MINUTES Rossy Richardson DO [address] [place] [address] Referral ID Status Reason Start Date Expiration Date Visits Requested Visits Authorized [id number] Authorized PCP Requested Referral 01/29/2022 01/29/2023 1 1 Chief Complaint and Reason for Visit Chief Complaint GENERAL ILLNESS Chief Complaint POSSIBLE BLOOD CLOT Health Concerns Infection Onset Date Last Indicated Resolved Time COVID-19 Rule-Out 06/16/2022 06/16/2022 Infection Onset Date Last Indicated Resolved Time COVID-19 Confirmed Comment:Patient had negative Covid test at [facility] 06/05/22 01/28/2022 06/07/2022 06/07/2022 7:18 AM E DT COVID-19 Rule-Out 06/16/2022 06/16/2022 06/16/2022 6:47 PM EDT Medications Administered Section Inactive Administered Medications - up to 3 most recent administrations Medication Order MAR Action Action Date Dose Rate Site fentaNYL 50 mcg/mL injection (SUBLIMAZE) INTRAVENOUS, X (OR/PROCEDURE) PRN, Starting on Tue12/13/22 at 0842, Until Tue12/14/22 at 0303, Intraprocedure Given 12/13/2022 8:42 AM EDT 50 mcg IV lidocaine 20 mg/mL (2 %) injection (XYLOCAINE) X (OR/PROCEDURE) PRN, Starting on Tue12/13/22 at 0844, Until Tue12/14/22 at 0303, Intraprocedure Given 12/13/2022 8:44 AM EDT 10 mL Back, Right midazolam (PF) injection (VERSED) INTRAVENOUS, X (OR/PROCEDURE) PRN, Starting on Tue12/13/22 at 0842, Until Tue12/14/22 at 0303, Intraprocedure Given 12/13/2022 8:42 AM EDT 1 mg IV NaCl 0.9% iv infusion INTRAVENOUS, X (OR/PROCEDURE) CONTINUOUS, Starting on Tue12/13/22 at 0827, Until Tue12/14/22 at 0303, Intraprocedure New Bag/Syringe/Bottle 12/13/2022 8:27 AM EDT 500 mL IV sodium chloride 0.9 % (flush) (BD POSIFLUSH) INTRAVENOUS, X (OR/PROCEDURE) PRN, Starting on Tue12/13/22 at 0823, Until Tue12/14/22 at 0303, Intraprocedure Given 12/13/2022 8:23 AM EDT 10 mL IV Additional Source Comments (unrecognized sect ion and content) No Status Records FoundNo Status Records FoundNo Status Records FoundNo Status Records FoundNo Status Records FoundNo Status Records FoundNo Status Records Found INFORMATION SOURCE (unrecogn ized section and content) DATE CREATED AUTHOR 06/23/2021 [facility] DATE CREATED AUTHOR AUTHOR'S ORGANIZ ATION 12/09/2022 [facility] DATE CREATED AUTHOR AUTHOR'S ORGANIZ ATION 08/31/2023 [facility] ([place]) DATE CREATED AUTHOR AUTHOR'S ORGANIZ ATION 09/19/2024 [facility] DATE CREATED AUTHOR AUTHOR'S ORGANIZ ATION 01/26/2025 [facility] DATE CREATED AUTHOR AUTHOR'S ORGANIZ ATION 03/11/2025 [facility] DATE CREATED AUTHOR AUTHOR'S ORGANIZ ATION 06/12/2025 [facility] Care Team (unrecognized sect ion and content) Cutter Inspector Relationship Specialty Start Date End Date Payton Hastings PCP - General Family Practice 08/24/17 Cutter Inspector Relationship Specialty Start Date End Date Payton Hastings PCP - General Family Practice 08/24/17 Cutter Inspector Relationship Specialty Start Date End Date Payton Hastings PCP - General Family Practice 08/24/17 Cutter Inspector Relationship Specialty Start Date End Date Payton Hastings PCP - General Family Practice 08/24/17 Cutter Inspector Relationship Specialty Start Date End Date Payton Hastings PCP - General Family Practice 08/24/17 Cutter Inspector Relationship Specialty Start Date End Date Payton Hastings PCP - General Family Practice 08/24/17 Cutter Inspector Relationship Specialty Start Date End Date Payton Hastings PCP - General Family Practice 08/24/17 Cutter Inspector Relationship Specialty Start Date End Date Smitha Ray IV, MD [address] [place] [address] PCP - General Family Practice 03/09/22 Cutter Inspector Relationship Specialty Start Date End Date Smitha Ray IV, MD [address] [place] [address] PCP - General Family Practice 03/09/22 Cutter Inspector Relationship Specialty Start Date End Date Smitha Ray IV, MD [address] [place] [address] PCP - General Family Practice 03/09/22 Cutter Inspector Relationship Specialty Start Date End Date Smitha Ray IV, MD [address] [place] [address] PCP - General Family Practice 03/09/22 Cutter Inspector Relationship Specialty Start Date End Date Smitha Ray IV, MD [address] [place] [address] 23821 PCP - General Family Practice 03/09/22 Cutter Inspector Relationship Specialty Start Date End Date Smitha Ray IV, MD [address] [place] [address] PCP - General Family Practice 03/09/22 Cutter Inspector Relationship Specialty Start Date End Date Smitha Ray IV, MD [address] [place] [address] 75304 PCP - General Family Practice 03/09/22 Cutter Inspector Relationship Specialty Start Date End Date Smitha Ray IV, MD [address] [place] [address] 88378 PCP - General Family Medicine 03/09/22 Cutter Inspector Relationship Specialty Start Date End Date Smitha Ray IV, MD [address] [place] [address] 46089 PCP - General Family Medicine 03/09/22 Cutter Inspector Relationship Specialty Start Date End Date Smitha Ray IV, MD [address] [place] [address] 32588 PCP - General Family Medicine 03/09/22 Cutter Inspector Relationship Specialty Start Date End Date Smitha Ray IV, MD [address] [place] [address] 69207 PCP - General Family Medicine 03/09/22 Cutter Inspector Relationship Specialty Start Date End Date Smitha Ray IV, MD [address] [place] [address] PCP - General Family Medicine 03/09/22 Cutter Inspector Relationship Specialty Start Date End Date Smitha Ray IV, MD [address] [place] [address] 65675 PCP - General Family Medicine 03/09/22 Cutter Inspector Relationship Specialty Start Date End Date Smitha Ray IV, MD [address] [place] [address] PCP - General Family Medicine 03/09/22 Cutter Inspector Relationship Specialty Start Date End Date Smitha Ray IV, MD [address] [place] [address] 21949 PCP - General Family Medicine 03/09/22 Cutter Inspector Relationship Specialty Start Date End Date Smitha Ray IV, MD [address] [place] [address] 83319 PCP - General Family Medicine 03/09/22 Cutter Inspector Relationship Specialty Start Date End Date Smitha Ray IV, MD [address] [place] [address] 67449 PCP - General Family Medicine 03/09/22 Cutter Inspector Relationship Specialty Start Date End Date Smitha Ray IV, MD [address] [place] [address] 98542 PCP - General Family Medicine 03/09/22 Cutter Inspector Relationship Specialty Start Date End Date Smitha Ray IV, MD [address] [place] [address] PCP - General Family Medicine 03/09/22 Cutter Inspector Relationship Specialty Start Date End Date Smitha Ray IV, MD [address] [place] [address] PCP - General Family Medicine 03/09/22 Cutter Inspector Relationship Specialty Start Date End Date Smitha Ray IV, MD [address] [place] [address] 76006 PCP - General Family Medicine 03/09/22 Cutter Inspector Relationship Specialty Start Date End Date Smitha Ray IV, MD [address] [place] [address] 51706 PCP - General Family Medicine 03/09/22 Cutter Inspector Relationship Specialty Start Date End Date Smitha Ray IV, MD [address] [place] [address] 11642 PCP - General Family Medicine 03/09/22 Cutter Inspector Relationship Specialty Start Date End Date Smitha Ray IV, MD [address] [place] [address] 04469 PCP - General Family Medicine 03/09/22 Cutter Inspector Relationship Specialty Start Date End Date Smitha Ray IV, MD [address] [place] [address] 97949 PCP - General Family Medicine 03/09/22 Cutter Inspector Relationship Specialty Start Date End Date Smitha Ray IV, MD [address] [place] [address] 73514 PCP - General Family Medicine 03/09/22 Cutter Inspector Relationship Specialty Start Date End Date Smitha Ray IV, MD [address] [place] [address] 53513 PCP - General Family Medicine 03/09/22 Cutter Inspector Relationship Specialty Start Date End Date Smitha Ray IV, MD [address] [place] [address] PCP - General Family Medicine 03/09/22 Cutter Inspector Relationship Specialty Start Date End Date Smitha Ray IV, MD [address] [place] [address] PCP - General Family Medicine 03/09/22 Cutter Inspector Relationship Specialty Start Date End Date Smitha Ray IV, MD [address] [place] [address] PCP - General Family Medicine 03/09/22 Cutter Inspector Relationship Specialty Start Date End Date Smitha Ray IV, [address] [place] [address] PCP - General Family Medicine 03/09/22 Cutter Inspector Relationship Specialty Start Date End Date Smitha Ray IV, [address] [place] [address] PCP - General Family Medicine 03/09/22 Cutter Inspector Relationship Specialty Start Date End Date Smitha Ray IV, [address] [place] [address] PCP - General Family Medicine 03/09/22 Cutter Inspector Relationship Specialty Start Date End Date Smitha Ray IV, DO [address] [place] [address] PCP - General Family Medicine 03/09/22 Cutter Inspector Relationship Specialty Start Date End Date Smitha Ray IV, DO [address] [place] [address] PCP - General Family Medicine 03/09/22 Cutter Inspector Relationship Specialty Start Date End Date Smitha Ray IV DO [address] [place] [address] PCP - General Family Medicine 03/09/22 Cutter Inspector Relationship Specialty Start Date End Date Smitha Ray IV, DO [address] [place] [address] PCP - General Family Medicine 03/09/22 Cutter Inspector Relationship Specialty Start Date End Date Smitha Ray IV, DO [address] [place] [address] PCP - General Family Medicine 03/09/22 Cutter Inspector Relationship Specialty Start Date End Date Smitha Ray IV [address] [place] [address] PCP - General Family Medicine 03/09/22 Cutter Inspector Relationship Specialty Start Date End Date Smitha Ray IV, DO [address] [place] [address] PCP - General Family Medicine 03/09/22 Cutter Inspector Relationship Specialty Start Date End Date Smitha Ray IV, DO [address] [place] [address] PCP - General Family Medicine 03/09/22 Cutter Inspector Relationship Specialty Start Date End Date Smitha Ray IV, DO [address] [place] [address] PCP - General Family Medicine 03/09/22 Cutter Inspector Relationship Specialty Start Date End Date Smitha Ray IV, DO [address] [place] [address] PCP - General Family Medicine 03/09/22 Cutter Inspector Relationship Specialty Start Date End Date Smitha Ray IV, DO [address] [place] [address] PCP - General Family Medicine 03/09/22 Cutter Inspector Relationship Specialty Start Date End Date Smitha Ray IV, DO [address] [place] [address] PCP - General Family Medicine 03/09/22 Cutter Inspector Relationship Specialty Start Date End Date Smitha Ray IV, DO [address] [place] [address] 17192 PCP - General Family Medicine 03/09/22 Cutter Inspector Relationship Specialty Start Date End Date Smitha Ray IV, DO [address] [place] [address] 00392 PCP - General Family Medicine 03/09/22 Cutter Inspector Relationship Specialty Start Date End Date Smitha Ray IV, DO [address] [place] [address] 08907 PCP - General Family Medicine 03/09/22 Cutter Inspector Relationship Specialty Start Date End Date Smitha Ray IV, DO [address] [place] [address] 90092 PCP - General Family Medicine 03/09/22 Cutter Inspector Relationship Specialty Start Date End Date Smitha Ray IV, DO [address] [place] [address] 84796 PCP - General Family Medicine 03/09/22 Cutter Inspector Relationship Specialty Start Date End Date Smitha Ray IV, DO [address] [place] [address] 09352 PCP - General Family Medicine 03/09/22 Cutter Inspector Relationship Specialty Start Date End Date Smitha Ray IV, DO [facility] [place] [address] PCP - General Family Medicine 03/09/22 Cutter Inspector Relationship Specialty Start Date End Date Smitha Ray IV, DO [address] [place] [address] PCP - General Family Medicine 03/09/22 Cutter Inspector Relationship Specialty Start Date End Date Smitha Ray IV, DO [address] [place] [address] 04227 PCP - General Family Medicine 03/09/22 Cutter Inspector Relationship Specialty Start Date End Date Smitha Ray IV, DO [address] [place] [address] PCP - General Family Medicine 03/09/22 Team Status: Active Member Role Status Dates Dr. Dot Pearson Family Provider Active Dr. Smitha Ray , Primary Care Provider Active Team Status: Inactive Member Role Status Dates Dr. Smitha Ray DO Primary Care Provider Active Dr. Lazaro Ramirez , Emergency Provider Active Cutter Inspector Relationship Specialty Start Date End Date Smitha Ray IV, DO [address] [place] [address] 44331 PCP - General Family Medicine 03/09/22 Cutter Inspector Relationship Specialty Start Date End Date Smitha Ray IV, DO [address] [place] [address] 27629 PCP - General Family Medicine 03/09/22 Cutter Inspector Relationship Specialty Start Date End Date Smitha Ray IV, DO [address] [place] [address] 42338 PCP - General Family Medicine 03/09/22 Cutter Inspector Relationship Specialty Start Date End Date Smitha Ray IV, DO [address] [place] [address] PCP - General Family Medicine 03/09/22 Cutter Inspector Relationship Specialty Start Date End Date Smitha Ray IV, DO [address] [place] [address] PCP - General Family Medicine 03/09/22 Cutter Inspector Relationship Specialty Start Date End Date Smitha Ray IV, DO [address] [place] [address] PCP - General Family Medicine 03/09/22 Cutter Inspector Relationship Specialty Start Date End Date Smitha Ray IV, DO [address] [place] [address] PCP - General Family Medicine 03/09/22 Cutter Inspector Relationship Specialty Start Date End Date Smitha Ray IV, DO [address] [place] [address] PCP - General Family Medicine 03/09/22 Cutter Inspector Relationship Specialty Start Date End Date Smitha Ray IV, DO [address] [place] [address] PCP - General Family Medicine 03/09/22 Cutter Inspector Relationship Specialty Start Date End Date Smitha Ray IV, DO [address] [place] [address] PCP - General Family Medicine 03/09/22 Cutter Inspector Relationship Specialty Start Date End Date Smitha Ray IV, DO [address] [place] [address] PCP - General Family Medicine 03/09/22 Cutter Inspector Relationship Specialty Start Date End Date Smitha Ray IV, DO [address] [place] [address] PCP - General Family Medicine 03/09/22 Cutter Inspector Relationship Specialty Start Date End Date Smitha Ray IV, DO [address] [place] [address] PCP - General Family Medicine 03/09/22 Cutter Inspector Relationship Specialty Start Date End Date Smitha Ray IV, DO [address] [place] [address] PCP - General Family Medicine 03/09/22 Cutter Inspector Relationship Specialty Start Date End Date Smitha Ray IV, DO [address] [place] [address] PCP - General Family Medicine 03/09/22 Cutter Inspector Relationship Specialty Start Date End Date Smitha Ray IV, DO [address] [place] [address] PCP - General Family Medicine 03/09/22 Cutter Inspector Relationship Specialty Start Date End Date Smitha Ray IV, DO [address] [place] [address] PCP - General Family Medicine 03/09/22 Cutter Inspector Relationship Specialty Start Date End Date Smitha Ray IV, DO [address] [place] [address] PCP - General Family Medicine 03/09/22 Cutter Inspector Relationship Specialty Start Date End Date Smitha Ray IV, DO [address] [place], [place] [address] PCP - General Family Medicine 03/09/22 Cutter Inspector Relationship Specialty Start Date End Date Smitha Ray IV, DO [address] [place] [address] PCP - General Family Medicine 03/09/22 Cutter Inspector Relationship Specialty Start Date End Date Smitha Ray IV, DO [address] [place] [address] PCP - General Family Medicine 03/09/22 Cutter Inspector Relationship Specialty Start Date End Date Smitha Ray IV, DO [address] [place] [address] PCP - General Family Medicine 03/09/22 Cutter Inspector Relationship Specialty Start Date End Date Smitha Ray IV, DO [address] [place] [address] PCP - General Family Medicine 03/09/22 Cutter Inspector Relationship Specialty Start Date End Date Smitha Ray IV, DO [address] [place] [address] PCP - General Family Medicine 03/09/22 Cutter Inspector Relationship Specialty Start Date End Date Smitha Ray IV, DO [address] [place] [address] PCP - General Family Medicine 03/09/22 Cutter Inspector Relationship Specialty Start Date End Date Smitha Ray IV, DO [address] [place] [address] PCP - General Family Medicine 03/09/22 Source Comments (unrecognize d section and content) In the event this informatio n is protected by the Federal Confidentiality of Alcohol and Drug Abuse Patient Records regulations: The Federal rules restrict any use of the information to criminally investigate or prosecute any alcohol or drug abuse patient.[facility] Hospital[facility] the event this information is protected by the Federal Confidentiality of Alcohol and Drug Abuse Patient Records regulations: The Federal rules restrict any use of the information to criminally investigate or prosecute any alcohol or drug abuse patient.[facility] HospitalIn the event this information is protected by the Federal Confidentiality of Alcohol and Drug Abuse Patient Records regulations: The Federal rules restrict any use of the information to criminally investigate or prosecute any alcohol or drug abuse patient.[facility] HospitalIn the event this information is protected by the Federal Confidentiality of Alcohol and Drug Abuse Patient Records regulations: The Federal rules restrict any use of the information to criminally investigate or prosecute any alcohol or drug abuse patient.[facility] HospitalIn the event this information is protected by the Federal Confidentiality of Alcohol and Drug Abuse Patient Records regulations: The Federal rules restrict any use of the information to criminally investigate or prosecute any alcohol or drug abuse patient.[facility] HospitalIn the event this information is protected by the Federal Confidentiality of Alcohol and Drug Abuse Patient Records regulations: The Federal rules restrict any use of the information to criminally investigate or prosecute any alcohol or drug abuse patient.[facility] HospitalIn the event this information is protected by the Federal Confidentiality of Alcohol and Drug Abuse Patient Records regulations: The Federal rules restrict any use of the information to criminally investigate or prosecute any alcohol or drug abuse patient.[facility] HospitalIn the event this information is protected by the Federal Confidentiality of Alcohol and Drug Abuse Patient Records regulations: The Federal rules restrict any use of the information to criminally investigate or prosecute any alcohol or drug abuse patient.[facility] HospitalIn the event this information is protected by the Federal Confidentiality of Alcohol and Drug Abuse Patient Records regulations: The Federal rules restrict any use of the information to criminally investigate or prosecute any alcohol or drug abuse patient.[facility] HospitalIn the event this information is protected by the Federal Confidentiality of Alcohol and Drug Abuse Patient Records regulations: The Federal rules restrict any use of the information to criminally investigate or prosecute any alcohol or drug abuse patient.[facility] HospitalIn the event this information is protected by the Federal Confidentiality of Alcohol and Drug Abuse Patient Records regulations: The Federal rules restrict any use of the information to criminally investigate or prosecute any alcohol or drug abuse patient.[facility] HospitalIn the event this information is protected by the Federal Confidentiality of Alcohol and Drug Abuse Patient Records regulations: The Federal rules restrict any use of the information to criminally investigate or prosecute any alcohol or drug abuse patient.[facility] HospitalIn the event this information is protected by the Federal Confidentiality of Alcohol and Drug Abuse Patient Records regulations: The Federal rules restrict any use of the information to criminally investigate or prosecute any alcohol or drug abuse patient.[facility] HospitalIn the event this information is protected by the Federal Confidentiality of Alcohol and Drug Abuse Patient Records regulations: The Federal rules restrict any use of the information to criminally investigate or prosecute any alcohol or drug abuse patient.[facility] HospitalIn the event this information is protected by the Federal Confidentiality of Alcohol and Drug Abuse Patient Records regulations: The Federal rules restrict any use of the information to criminally investigate or prosecute any alcohol or drug abuse patient.[facility] HospitalIn the event this information is protected by the Federal Confidentiality of Alcohol and Drug Abuse Patient Records regulations: The Federal rules restrict any use of the information to criminally investigate or prosecute any alcohol or drug abuse patient.[facility] HospitalIn the event this information is protected by the Federal Confidentiality of Alcohol and Drug Abuse Patient Records regulations: The Federal rules restrict any use of the information to criminally investigate or prosecute any alcohol or drug abuse patient.[facility] HospitalIn the event this information is protected by the Federal Confidentiality of Alcohol and Drug Abuse Patient Records regulations: The Federal rules restrict any use of the information to criminally investigate or prosecute any alcohol or drug abuse patient.[facility] HospitalIn the event this information is protected by the Federal Confidentiality of Alcohol and Drug Abuse Patient Records regulations: The Federal rules restrict any use of the information to criminally investigate or prosecute any alcohol or drug abuse patient.[facility] HospitalIn the event this information is protected by the Federal Confidentiality of Alcohol and Drug Abuse Patient Records regulations: The Federal rules restrict any use of the information to criminally investigate or prosecute any alcohol or drug abuse patient.[facility] HospitalIn the event this information is protected by the Federal Confidentiality of Alcohol and Drug Abuse Patient Records regulations: The Federal rules restrict any use of the information to criminally investigate or prosecute any alcohol or drug abuse patient.[facility] HospitalIn the event this information is protected by the Federal Confidentiality of Alcohol and Drug Abuse Patient Records regulations: The Federal rules restrict any use of the information to criminally investigate or prosecute any alcohol or drug abuse patient.[facility] HospitalIn the event this information is protected by the Federal Confidentiality of Alcohol and Drug Abuse Patient Records regulations: The Federal rules restrict any use of the information to criminally investigate or prosecute any alcohol or drug abuse patient.[facility] HospitalIn the event this information is protected by the Federal Confidentiality of Alcohol and Drug Abuse Patient Records regulations: The Federal rules restrict any use of the information to criminally investigate or prosecute any alcohol or drug abuse patient.[facility] HospitalIn the event this information is protected by the Federal Confidentiality of Alcohol and Drug Abuse Patient Records regulations: The Federal rules restrict any use of the information to criminally investigate or prosecute any alcohol or drug abuse patient.[facility] HospitalIn the event this information is protected by the Federal Confidentiality of Alcohol and Drug Abuse Patient Records regulations: The Federal rules restrict any use of the information to criminally investigate or prosecute any alcohol or drug abuse patient.[facility] HospitalIn the event this information is protected by the Federal Confidentiality of Alcohol and Drug Abuse Patient Records regulations: The Federal rules restrict any use of the information to criminally investigate or prosecute any alcohol or drug abuse patient.[facility] HospitalIn the event this information is protected by the Federal Confidentiality of Alcohol and Drug Abuse Patient Records regulations: The Federal rules restrict any use of the information to criminally investigate or prosecute any alcohol or drug abuse patient.[facility] HospitalIn the event this information is protected by the Federal Confidentiality of Alcohol and Drug Abuse Patient Records regulations: The Federal rules restrict any use of the information to criminally investigate or prosecute any alcohol or drug abuse patient.[facility] HospitalIn the event this information is protected by the Federal Confidentiality of Alcohol and Drug Abuse Patient Records regulations: The Federal rules restrict any use of the information to criminally investigate or prosecute any alcohol or drug abuse patient.[facility]In the event this information is protected by the Federal Confidentiality of Alcohol and Drug Abuse Patient Records regulations: The Federal rules restrict any use of the information to criminally investigate or prosecute any alcohol or drug abuse patient.[facility] HospitalIn the event this information is protected by the Federal Confidentiality of Alcohol and Drug Abuse Patient Records regulations: The Federal rules restrict any use of the information to criminally investigate or prosecute any alcohol or drug abuse patient.[facility] HospitalIn the event this information is protected by the Federal Confidentiality of Alcohol and Drug Abuse Patient Records regulations: The Federal rules restrict any use of the information to criminally investigate or prosecute any alcohol or drug abuse patient.[facility] HospitalIn the event this information is protected by the Federal Confidentiality of Alcohol and Drug Abuse Patient Records regulations: The Federal rules restrict any use of the information to criminally investigate or prosecute any alcohol or drug abuse patient.[facility] HospitalIn the event this information is protected by the Federal Confidentiality of Alcohol and Drug Abuse Patient Records regulations: The Federal rules restrict any use of the information to criminally investigate or prosecute any alcohol or drug abuse patient.[facility] HospitalIn the event this information is protected by the Federal Confidentiality of Alcohol and Drug Abuse Patient Records regulations: The Federal rules restrict any use of the information to criminally investigate or prosecute any alcohol or drug abuse patient.[facility] HospitalIn the event this information is protected by the Federal Confidentiality of Alcohol and Drug Abuse Patient Records regulations: The Federal rules restrict any use of the information to criminally investigate or prosecute any alcohol or drug abuse patient.[facility] HospitalIn the event this information is protected by the Federal Confidentiality of Alcohol and Drug Abuse Patient Records regulations: The Federal rules restrict any use of the information to criminally investigate or prosecute any alcohol or drug abuse patient.[facility] HospitalIn the event this information is protected by the Federal Confidentiality of Alcohol and Drug Abuse Patient Records regulations: The Federal rules restrict any use of the information to criminally investigate or prosecute any alcohol or drug abuse patient.[facility] HospitalIn the event this information is protected by the Federal Confidentiality of Alcohol and Drug Abuse Patient Records regulations: The Federal rules restrict any use of the information to criminally investigate or prosecute any alcohol or drug abuse patient.[facility] HospitalIn the event this information is protected by the Federal Confidentiality of Alcohol and Drug Abuse Patient Records regulations: The Federal rules restrict any use of the information to criminally investigate or prosecute any alcohol or drug abuse patient.[facility] HospitalIn the event this information is protected by the Federal Confidentiality of Alcohol and Drug Abuse Patient Records regulations: The Federal rules restrict any use of the information to criminally investigate or prosecute any alcohol or drug abuse patient.[facility] HospitalIn the event this information is protected by the Federal Confidentiality of Alcohol and Drug Abuse Patient Records regulations: The Federal rules restrict any use of the information to criminally investigate or prosecute any alcohol or drug abuse patient.[facility] HospitalIn the event this information is protected by the Federal Confidentiality of Alcohol and Drug Abuse Patient Records regulations: The Federal rules restrict any use of the information to criminally investigate or prosecute any alcohol or drug abuse patient.[facility] HospitalIn the event this information is protected by the Federal Confidentiality of Alcohol and Drug Abuse Patient Records regulations: The Federal rules restrict any use of the information to criminally investigate or prosecute any alcohol or drug abuse patient.[facility] HospitalIn the event this information is protected by the Federal Confidentiality of Alcohol and Drug Abuse Patient Records regulations: The Federal rules restrict any use of the information to criminally investigate or prosecute any alcohol or drug abuse patient.[facility] HospitalIn the event this information is protected by the Federal Confidentiality of Alcohol and Drug Abuse Patient Records regulations: The Federal rules restrict any use of the information to criminally investigate or prosecute any alcohol or drug abuse patient.[facility] HospitalIn the event this information is protected by the Federal Confidentiality of Alcohol and Drug Abuse Patient Records regulations: The Federal rules restrict any use of the information to criminally investigate or prosecute any alcohol or drug abuse patient.[facility] HospitalIn the event this information is protected by the Federal Confidentiality of Alcohol and Drug Abuse Patient Records regulations: The Federal rules restrict any use of the information to criminally investigate or prosecute any alcohol or drug abuse patient.[facility] HospitalIn the event this information is protected by the Federal Confidentiality of Alcohol and Drug Abuse Patient Records regulations: The Federal rules restrict any use of the information to criminally investigate or prosecute any alcohol or drug abuse patient.[facility]In the event this information is protected by the Federal Confidentiality of Alcohol and Drug Abuse Patient Records regulations: The Federal rules restrict any use of the information to criminally investigate or prosecute any alcohol or drug abuse patient.[facility] HospitalIn the event this information is protected by the Federal Confidentiality of Alcohol and Drug Abuse Patient Records regulations: The Federal rules restrict any use of the information to criminally investigate or prosecute any alcohol or drug abuse patient.[facility] HospitalIn the event this information is protected by the Federal Confidentiality of Alcohol and Drug Abuse Patient Records regulations: The Federal rules restrict any use of the information to criminally investigate or prosecute any alcohol or drug abuse patient.[facility] HospitalIn the event this information is protected by the Federal Confidentiality of Alcohol and Drug Abuse Patient Records regulations: The Federal rules restrict any use of the information to criminally investigate or prosecute any alcohol or drug abuse patient.[facility] HospitalIn the event this information is protected by the Federal Confidentiality of Alcohol and Drug Abuse Patient Records regulations: The Federal rules restrict any use of the information to criminally investigate or prosecute any alcohol or drug abuse patient.[facility] HospitalIn the event this information is protected by the Federal Confidentiality of Alcohol and Drug Abuse Patient Records regulations: The Federal rules restrict any use of the information to criminally investigate or prosecute any alcohol or drug abuse patient.[facility] HospitalIn the event this information is protected by the Federal Confidentiality of Alcohol and Drug Abuse Patient Records regulations: The Federal rules restrict any use of the information to criminally investigate or prosecute any alcohol or drug abuse patient.[facility] HospitalIn the event this information is protected by the Federal Confidentiality of Alcohol and Drug Abuse Patient Records regulations: The Federal rules restrict any use of the information to criminally investigate or prosecute any alcohol or drug abuse patient.[facility] HospitalIn the event this information is protected by the Federal Confidentiality of Alcohol and Drug Abuse Patient Records regulations: The Federal rules restrict any use of the information to criminally investigate or prosecute any alcohol or drug abuse patient.[facility] HospitalIn the event this information is protected by the Federal Confidentiality of Alcohol and Drug Abuse Patient Records regulations: The Federal rules restrict any use of the information to criminally investigate or prosecute any alcohol or drug abuse patient.[facility] HospitalIn the event this information is protected by the Federal Confidentiality of Alcohol and Drug Abuse Patient Records regulations: The Federal rules restrict any use of the information to criminally investigate or prosecute any alcohol or drug abuse patient.[facility] HospitalIn the event this information is protected by the Federal Confidentiality of Alcohol and Drug Abuse Patient Records regulations: The Federal rules restrict any use of the information to criminally investigate or prosecute any alcohol or drug abuse patient.[facility] HospitalIn the event this information is protected by the Federal Confidentiality of Alcohol and Drug Abuse Patient Records regulations: The Federal rules restrict any use of the information to criminally investigate or prosecute any alcohol or drug abuse patient.[facility] HospitalIn the event this information is protected by the Federal Confidentiality of Alcohol and Drug Abuse Patient Records regulations: The Federal rules restrict any use of the information to criminally investigate or prosecute any alcohol or drug abuse patient.[facility] HospitalIn the event this information is protected by the Federal Confidentiality of Alcohol and Drug Abuse Patient Records regulations: The Federal rules restrict any use of the information to criminally investigate or prosecute any alcohol or drug abuse patient.[facility] HospitalIn the event this information is protected by the Federal Confidentiality of Alcohol and Drug Abuse Patient Records regulations: The Federal rules restrict any use of the information to criminally investigate or prosecute any alcohol or drug abuse patient.[facility] HospitalIn the event this information is protected by the Federal Confidentiality of Alcohol and Drug Abuse Patient Records regulations: The Federal rules restrict any use of the information to criminally investigate or prosecute any alcohol or drug abuse patient.[facility] HospitalIn the event this information is protected by the Federal Confidentiality of Alcohol and Drug Abuse Patient Records regulations: The Federal rules restrict any use of the information to criminally investigate or prosecute any alcohol or drug abuse patient.[facility] HospitalIn the event this information is protected by the Federal Confidentiality of Alcohol and Drug Abuse Patient Records regulations: The Federal rules restrict any use of the information to criminally investigate or prosecute any alcohol or drug abuse patient.[facility] HospitalIn the event this information is protected by the Federal Confidentiality of Alcohol and Drug Abuse Patient Records regulations: The Federal rules restrict any use of the information to criminally investigate or prosecute any alcohol or drug abuse patient.[facility] HospitalIn the event this information is protected by the Federal Confidentiality of Alcohol and Drug Abuse Patient Records regulations: The Federal rules restrict any use of the information to criminally investigate or prosecute any alcohol or drug abuse patient.[facility] HospitalIn the event this information is protected by the Federal Confidentiality of Alcohol and Drug Abuse Patient Records regulations: The Federal rules restrict any use of the information to criminally investigate or prosecute any alcohol or drug abuse patient.[facility] HospitalIn the event this information is protected by the Federal Confidentiality of Alcohol and Drug Abuse Patient Records regulations: The Federal rules restrict any use of the information to criminally investigate or prosecute any alcohol or drug abuse patient.[facility] HospitalIn the event this information is protected by the Federal Confidentiality of Alcohol and Drug Abuse Patient Records regulations: The Federal rules restrict any use of the information to criminally investigate or prosecute any alcohol or drug abuse patient.[facility] HospitalIn the event this information is protected by the Federal Confidentiality of Alcohol and Drug Abuse Patient Records regulations: The Federal rules restrict any use of the information to criminally investigate or prosecute any alcohol or drug abuse patient.[facility] HospitalIn the event this information is protected by the Federal Confidentiality of Alcohol and Drug Abuse Patient Records regulations: The Federal rules restrict any use of the information to criminally investigate or prosecute any alcohol or drug abuse patient.[facility] HospitalIn the event this information is protected by the Federal Confidentiality of Alcohol and Drug Abuse Patient Records regulations: The Federal rules restrict any use of the information to criminally investigate or prosecute any alcohol or drug abuse patient.[facility] HospitalIn the event this information is protected by the Federal Confidentiality of Alcohol and Drug Abuse Patient Records regulations: The Federal rules restrict any use of the information to criminally investigate or prosecute any alcohol or drug abuse patient.[facility] HospitalIn the event this information is protected by the Federal Confidentiality of Alcohol and Drug Abuse Patient Records regulations: The Federal rules restrict any use of the information to criminally investigate or prosecute any alcohol or drug abuse patient.[facility] HospitalIn the event this information is protected by the Federal Confidentiality of Alcohol and Drug Abuse Patient Records regulations: The Federal rules restrict any use of the information to criminally investigate or prosecute any alcohol or drug abuse patient.[facility] HospitalIn the event this information is protected by the Federal Confidentiality of Alcohol and Drug Abuse Patient Records regulations: The Federal rules restrict any use of the information to criminally investigate or prosecute any alcohol or drug abuse patient.[facility] HospitalIn the event this information is protected by the Federal Confidentiality of Alcohol and Drug Abuse Patient Records regulations: The Federal rules restrict any use of the information to criminally investigate or prosecute any alcohol or drug abuse patient.[facility] HospitalIn the event this information is protected by the Federal Confidentiality of Alcohol and Drug Abuse Patient Records regulations: The Federal rules restrict any use of the information to criminally investigate or prosecute any alcohol or drug abuse patient.[facility] HospitalIn the event this information is protected by the Federal Confidentiality of Alcohol and Drug Abuse Patient Records regulations: The Federal rules restrict any use of the information to criminally investigate or prosecute any alcohol or drug abuse patient.[facility] HospitalIn the event this information is protected by the Federal Confidentiality of Alcohol and Drug Abuse Patient Records regulations: The Federal rules restrict any use of the information to criminally investigate or prosecute any alcohol or drug abuse patient.[facility] HospitalIn the event this information is protected by the Federal Confidentiality of Alcohol and Drug Abuse Patient Records regulations: The Federal rules restrict any use of the information to criminally investigate or prosecute any alcohol or drug abuse patient.[facility] HospitalIn the event this information is protected by the Federal Confidentiality of Alcohol and Drug Abuse Patient Records regulations: The Federal rules restrict any use of the information to criminally investigate or prosecute any alcohol or drug abuse patient.[facility] HospitalIn the event this information is protected by the Federal Confidentiality of Alcohol and Drug Abuse Patient Records regulations: The Federal rules restrict any use of the information to criminally investigate or prosecute any alcohol or drug abuse patient.[facility] HospitalIn the event this information is protected by the Federal Confidentiality of Alcohol and Drug Abuse Patient Records regulations: The Federal rules restrict any use of the information to criminally investigate or prosecute any alcohol or drug abuse patient.[facility] HospitalIn the event this information is protected by the Federal Confidentiality of Alcohol and Drug Abuse Patient Records regulations: The Federal rules restrict any use of the information to criminally investigate or prosecute any alcohol or drug abuse patient.[facility] HospitalIn the event this information is protected by the Federal Confidentiality of Alcohol and Drug Abuse Patient Records regulations: The Federal rules restrict any use of the information to criminally investigate or prosecute any alcohol or drug abuse patient.[facility] HospitalIn the event this information is protected by the Federal Confidentiality of Alcohol and Drug Abuse Patient Records regulations: The Federal rules restrict any use of the information to criminally investigate or prosecute any alcohol or drug abuse patient.[facility] HospitalIn the event this information is protected by the Federal Confidentiality of Alcohol and Drug Abuse Patient Records regulations: The Federal rules restrict any use of the information to criminally investigate or prosecute any alcohol or drug abuse patient.[facility] HospitalIn the event this information is protected by the Federal Confidentiality of Alcohol and Drug Abuse Patient Records regulations: The Federal rules restrict any use of the information to criminally investigate or prosecute any alcohol or drug abuse patient.[facility] HospitalIn the event this information is protected by the Federal Confidentiality of Alcohol and Drug Abuse Patient Records regulations: The Federal rules restrict any use of the information to criminally investigate or prosecute any alcohol or drug abuse patient.[facility] HospitalIn the event this information is protected by the Federal Confidentiality of Alcohol and Drug Abuse Patient Records regulations: The Federal rules restrict any use of the information to criminally investigate or prosecute any alcohol or drug abuse patient.[facility] HospitalIn the event this information is protected by the Federal Confidentiality of Alcohol and Drug Abuse Patient Records regulations: The Federal rules restrict any use of the information to criminally investigate or prosecute any alcohol or drug abuse patient.[facility] HospitalIn the event this information is protected by the Federal Confidentiality of Alcohol and Drug Abuse Patient Records regulations: The Federal rules restrict any use of the information to criminally investigate or prosecute any alcohol or drug abuse patient.[facility] HospitalIn the event this information is protected by the Federal Confidentiality of Alcohol and Drug Abuse Patient Records regulations: The Federal rules restrict any use of the information to criminally investigate or prosecute any alcohol or drug abuse patient.[facility] HospitalIn the event this information is protected by the Federal Confidentiality of Alcohol and Drug Abuse Patient Records regulations: The Federal rules restrict any use of the information to criminally investigate or prosecute any alcohol or drug abuse patient.[facility]In the event this information is protected by the Federal Confidentiality of Alcohol and Drug Abuse Patient Records regulations: The Federal rules restrict any use of the information to criminally investigate or prosecute any alcohol or drug abuse patient.[facility] HospitalIn the event this information is protected by the Federal Confidentiality of Alcohol and Drug Abuse Patient Records regulations: The Federal rules restrict any use of the information to criminally investigate or prosecute any alcohol or drug abuse patient.[facility] HospitalIn the event this information is protected by the Federal Confidentiality of Alcohol and Drug Abuse Patient Records regulations: The Federal rules restrict any use of the information to criminally investigate or prosecute any alcohol or drug abuse patient.[facility] HospitalIn the event this information is protected by the Federal Confidentiality of Alcohol and Drug Abuse Patient Records regulations: The Federal rules restrict any use of the information to criminally investigate or prosecute any alcohol or drug abuse patient.[facility] HospitalIn the event this information is protected by the Federal Confidentiality of Alcohol and Drug Abuse Patient Records regulations: The Federal rules restrict any use of the information to criminally investigate or prosecute any alcohol or drug abuse patient.[facility] HospitalIn the event this information is protected by the Federal Confidentiality of Alcohol and Drug Abuse Patient Records regulations: The Federal rules restrict any use of the information to criminally investigate or prosecute any alcohol or drug abuse patient.[facility] HospitalIn the event this information is protected by the Federal Confidentiality of Alcohol and Drug Abuse Patient Records regulations: The Federal rules restrict any use of the information to criminally investigate or prosecute any alcohol or drug abuse patient.[facility] HospitalIn the event this information is protected by the Federal Confidentiality of Alcohol and Drug Abuse Patient Records regulations: The Federal rules restrict any use of the information to criminally investigate or prosecute any alcohol or drug abuse patient.[facility] HospitalIn the event this information is protected by the Federal Confidentiality of Alcohol and Drug Abuse Patient Records regulations: The Federal rules restrict any use of the information to criminally investigate or prosecute any alcohol or drug abuse patient.[facility] HospitalIn the event this information is protected by the Federal Confidentiality of Alcohol and Drug Abuse Patient Records regulations: The Federal rules restrict any use of the information to criminally investigate or prosecute any alcohol or drug abuse patient.[facility] HospitalIn the event this information is protected by the Federal Confidentiality of Alcohol and Drug Abuse Patient Records regulations: The Federal rules restrict any use of the information to criminally investigate or prosecute any alcohol or drug abuse patient.[facility] HospitalIn the event this information is protected by the Federal Confidentiality of Alcohol and Drug Abuse Patient Records regulations: The Federal rules restrict any use of the information to criminally investigate or prosecute any alcohol or drug abuse patient.[facility] HospitalIn the event this information is protected by the Federal Confidentiality of Alcohol and Drug Abuse Patient Records regulations: The Federal rules restrict any use of the information to criminally investigate or prosecute any alcohol or drug abuse patient.[facility] HospitalIn the event this information is protected by the Federal Confidentiality of Alcohol and Drug Abuse Patient Records regulations: The Federal rules restrict any use of the information to criminally investigate or prosecute any alcohol or drug abuse patient.[facility] HospitalIn the event this information is protected by the Federal Confidentiality of Alcohol and Drug Abuse Patient Records regulations: The Federal rules restrict any use of the information to criminally investigate or prosecute any alcohol or drug abuse patient.[facility] HospitalIn the event this information is protected by the Federal Confidentiality of Alcohol and Drug Abuse Patient Records regulations: The Federal rules restrict any use of the information to criminally investigate or prosecute any alcohol or drug abuse patient.[facility] HospitalIn the event this information is protected by the Federal Confidentiality of Alcohol and Drug Abuse Patient Records regulations: The Federal rules restrict any use of the information to criminally investigate or prosecute any alcohol or drug abuse patient.[facility] Hospital[facility] the event this information is protected by the Federal Confidentiality of Alcohol and Drug Abuse Patient Records regulations: The Federal rules restrict any use of the information to criminally investigate or prosecute any alcohol or drug abuse patient.[facility] HospitalIn the event this information is protected by the Federal Confidentiality of Alcohol and Drug Abuse Patient Records regulations: The Federal rules restrict any use of the information to criminally investigate or prosecute any alcohol or drug abuse patient.[facility] Hospital[facility] the event this information is protected by the Federal Confidentiality of Alcohol and Drug Abuse Patient Records regulations: The Federal rules restrict any use of the information to criminally investigate or prosecute any alcohol or drug abuse patient.[facility] Reason for Visit (unrecogniz ed section and content) Reason Comments Schedule Surgery Reason Comments Erroneous encounter-disregard Reason Comments Permanent Pacemaker Reason Comments Consult discuss IVC filter Reason Comments A-fib Reason Comments Refill Request Reason Comments Kidney Problem Reason Comments Cardiac Clearance Reason Comments Cardiology Follow Up HTN Reason Comments Patient Question Upcoming surgery tom gilda he stop his 81mg aspirin? 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 Reason Comments Cardiac Clearance Robotic RT Nephrecto my with Dr Fonseca 06/03/22 Reason Comments Patient Update Reason Onset Date Comments Derm Problem 05/28/2022 Reason Onset Date Comments Hospital F/U 05/31/2022 Reason Onset Date Comments Orders 05/31/2022 Reason Onset Date Comments Patient Update 06/05/2022 Reason Onset Date Comments Hospital Follow Up 06/28/2022 Reason Comments Wants your opinion Reason Comments CARD Hospital Follow Up HTN Reason Comments Appointment Reason Comments Pulmonary Hypertension Reason Comments Cardiology Follow Up A-fib Reason Comments Remote Pacemaker Follow Up Reason Comments Preparations For Procedures Reason Comments Pulmonary Hypertension Specialty Diagnoses / Procedures Referred By Violeta t Referred To Contact [facility] Diagnoses Pulmonary hypertension (HCC) Procedures SIX MINUTE WALK CARDIOPULMONARY EXERCISE STRESS Dwight Pittman MD [address] [place] [address] [facility] [address] [place] [id number] Referral ID Status Reason Start Date Expiration Date V isits Requested Visits Authorized [id number] Closed Auto-Generate d Referral 05/31/2022 06/30/2023 1 1 Specialty Diagnoses / Procedures Referred By Contac t Referred To Contact [facility] Diagnoses Pulmonary hypertension (HCC) Procedures SPIROMETRY - BASELINE AND POST DILATOR BRNCDILAT RSPSE SPMTRY PRE&POST-BRNCDILAT ADMN Dwight Pitmtan MD [address] [place] [address] [facility] [address] [place] [address] Referral ID Status Reason Start Date Expiration Date V isits Requested Visits Authorized [id number] Closed Auto-Generate d Referral 05/31/2022 06/30/2023 1 1 Reason Comments MRI Appointment Reason Comments Results CT chest Reason Comments Follow Up Specialty Diagnoses / Procedures Referred By Contac t Referred To Contact [facility] IMAGING Diagnoses Other specified disorders of kidney and ureter Procedures MRI ABDOMEN WO/W IVCON MRI ABDOMEN W/O & W/CONTRAST MATERIAL Maninder Fonseca, DO [address] [place] [address] Mr Imaging Referral ID Status Reason Start Date Expiration Date V isits Requested Visits Authorized [id number] Closed Auto-Generate d Referral 11/06/2022 12/06/2023 1 1 Reason Comments Kidney Problem 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 Clearance form Reason Comments Orders Reason Comments Patient Conference Reason Comments Derm Problem Reason Comments 4 month follow up Reason Comments Refill Request Reason Comments Psg Check In (Adult) Reason Comments Results Reason Onset Date Comments Refill Request 06/08/2023 Specialty Diagnoses / Procedures Referred By Contac t Referred To Contact MR IMAGING Diagnoses Malignant neoplasm of right kidney, except renal pelvis (HCC) Procedures MRI ABDOMEN WO/W IVCON MRI ABDOMEN W/O & W/CONTRAST MATERIAL Maninder Fonseca, DO [address] [place] [address] Mr Imaging [facility] Referral ID Status Reason Start Date Expiration Date V isits Requested Visits Authorized [id number] Closed Auto-Generate d Referral 12/21/2022 01/20/2024 1 1 Reason Comments Sleep Apnea Reason Comments Radiology CT Specialty Diagnoses / Procedures Referred By Contac t Referred To Contact CT IMAGING Diagnoses Renal cell carcinoma of right kidney (HCC) Procedures CT FLANK WO IVCON CT ABD & PELVIS W/O CONTRAST Maninder Fonseca, DO [address] [place] [address] Ct Imaging [facility] Referral ID Status Reason Start Date Expiration Date V isits Requested Visits Authorized [id number] Closed Auto-Generate d Referral 07/06/2022 08/05/2023 1 1 Reason Comments CARD Follow Up Annual YEARLY A-FIB CHECK UP Reason Comments Recurrent DVT Alisa is here to di scuss possible IVC filter removal Reason Comments Medication Problem Reason Comments Established Patient Reason Comments Established Patient F/U 6 months OV Reason Comments Established Patient F/U 6 months Ov Reason Comments Radiology CT Specialty Diagnoses / Procedures Referred By Contac t Referred To Contact CT IMAGING Diagnoses Other specified injuries of unspecified lower leg, initial encounter Procedures CT COMPLETE LEG WO IVCON RIGHT HIP TO TOES CT LOWER EXTREMITY W/O CONTRAST MATERIAL Deena Waggoner MD [address] [place] [address] [place] [address] Referral ID Status Reason Start Date Expiration Date V isits Requested Visits Authorized [id number] Closed Auto-Generate d Referral 06/04/2024 07/04/2025 1 1 Reason Comments Established Patient Reason Comments Cough Chest congestion, he ad congestion, ST, fevers x5 days Reason Comments Chest Congestion cough x 08/22, seen on 08/31 Reason Comments Pulmonary Hypertension Shortness of Breath Reason Comments CARD Follow Up Annual YEARLY A-FIB CHECK UP Reason Comments Follow Up 6 month ov Reason Comments New Patient Heart attack- went t o [facility] 12/29/24-12/31/24, seen at [facility] last week, seen by Naveen Nino Reason Comments CARD Follow Up 6 Month Follow up Specialty Diagnoses / Procedures Referred By Contac t Referred To Contact Cardiology Diagnoses LBBB (left bundle branch block) Chronic systolic congestive heart failure (HCC) History of heart artery stent Procedures CONSULT TO CARDIOLOGY OFFICE/OUTPATIENT NEW HIGH MDM 60 MINUTES Naveen Nino, SEASONAL CLERK.[employer] [address] [place] [address] Phone: tel: fax: Referral ID Status Reason Start Date Expiration Date V isits Requested Visits Authorized [id number] Closed PCP Requested Referral 01/04/2025 01/04/2026 1 1 Reason Comments Orders [facility] order contact /ltr Reason Comments Follow Up Reason Comments CARD Hospital Follow Up LBBB Reason Comments Orders [facility] deferral Reason Comments Malignant neoplasm of right kidney, exce pt renal pelvis Reason Comments CARD Follow Up 6 Month Persistent afib Goals (unrecognized section and content) Goals may be documented in a n alternate section Care Team (unrecognized sect ion and content) Care Team Personnel Name: PAYTON HASTINGS DO Position: P4 Physician - Primary Care Member Role: Primary Care Physician Address: Address: [address] [place] [address] Care Team Related Persons Name: KINGA WARD Name: KINGA WARD Care Team Personnel Name: PAYTON HASTINGS DO Position: P4 Physician - Primary Care Member Role: Primary Care Physician Address: Address: [address] [place] [address] Care Team Related Persons Name: KINGA WARD Name: KINGA WARD PRN Active and Recently Administ ered Medications (unrecognized section and content) Medication Order 12/11/2022 12/12/2022 12/13/2022 fentaNYL 50 mcg/mL injection (SUBLIMAZE) INTRAVENOUS, X (OR/PROCEDURE) PRN, Starting on Tue12/13/22 at 0842, Until Tue12/14/22 at 0303, Intraprocedure 0842 (Given - Provid er: Roxana Tadeo RN) lidocaine 20 mg/mL (2 %) injection (XYLOCAINE) X (OR/PROCEDURE) PRN, Starting on Tue12/13/22 at 0844, Until Tue12/14/22 at 0303, Intraprocedure 0844 (Given - Provid er: Derek Callahan MD) midazolam (PF) injection (VERSED) INTRAVENOUS, X (OR/PROCEDURE) PRN, Starting on Tue12/13/22 at 0842, Until Tue12/14/22 at 0303, Intraprocedure 0842 (Given - Provid er: Roxana Tadeo RN) NaCl 0.9% iv infusion INTRAVENOUS, X (OR/PROCEDURE) CONTINUOUS, Starting on Tue12/13/22 at 0827, Until Tue12/14/22 at 0303, Intraprocedure 0827 (New Bag/Syring e/Bottle - Provider: Roxana Tadeo RN)0900 (Infusion Complete - Provider: Roxana Tadeo RN) sodium chloride 0.9 % (flush) (BD POSIFLUSH) INTRAVENOUS, X (OR/PROCEDURE) PRN, Starting on Tue12/13/22 at 0823, Until Tue12/14/22 at 0303, Intraprocedure 0823 (Given - Provid er: Roxana Tadeo RN - Comment: check patency) FOR RECORDS PERTAINING TO PATIENTS WHO ARE OR HAVE BEEN ENROLLED IN A CHEMICAL DEPENDENCY/SUBSTANCEABUSE PROGRAM, SOME INFORMATION MAY BE OMITTED. This clinical summary was aggregated from multiple sources. Caution should be exercised in using it in the provision of clinical care. This summary normalizes information from multiple sources, and as a consequence, information in this document may materially change the coding, format and clinical context of patient data. In addition, data may be omitted in some cases. CLINICAL DECISIONS SHOULD BE BASED ON THE PRIMARY CLINICAL RECORDS. [employer] [facility] provides no warranty or guarantee of the accuracy or completeness of information in this document.
[2025-06-14 12:38] LABS: Troponin T High Sensitivity 17 ng/L (<=22)
[2025-06-14 12:41] LABS: Anion Gap 12 (5-15); BUN 28 mg/dL (4-19); BUN/Creat Ratio 15.9 RATIO (10-20); Calcium,Total 8.7 mg/dL (7.6-11.0); Carbon Dioxide 21.0 mmol/L (21.0-32.0); Chloride 101 mmol/L (98-108); Estimated Creatinine Clearance 47.93 ml/min (50-250); Glucose 170 mg/dL (70-99); Magnesium 2.0 mg/dL (1.5-2.2); Potassium 4.2 mmol/L (3.3-5.1); Pro- Brain NATRIURETIC PEPTIDE 17362 pg/mL (<=900)
[2025-06-14 13:00] VITALS: BP 129/93; PULSE 86; RESP 17
[2025-06-14 14:00] VITALS: BP 138/88; PULSE 84; RESP 22; O2SAT 95
[2025-06-14 15:10] VITALS: BP 135/74; PULSE 83; RESP 18; TEMP 36.8; O2SAT 98
== END 2025-06-14 15:29 | disposition home or self-care (01) ==
PROVIDERS: Emergency Provider Emergency Medicine; PCP Student in an Organized Health Care Education/Training Program; Visit Provider Emergency Medicine
DX: R09.81 Nasal congestion (principal); R06.00 Dyspnea, unspecified
CPT/HCPCS: 71045; 80048; 83735; 83880; 84484; 85025; 93005; 96360; 96361; 99284; A4216